=== PATIENT | female | born 1940 | race Caucasian/White ===

== ENCOUNTER → 2016-10-18 | Outpatient (CLI) | payer BC ==
[~2016-10-18] MED LIST: ACET-1256 PO; ASPI81TA28 PO; AZAT50TA17 PO; CARBTAB2 PO; CLBCR60 TOP; CYNI1000 IM; DOXY50CA26 PO; LDDP5 TD; LISI-787 PO; LVQ500 PO; MCTP EXT; METF850T PO; MRLP17X PO; MULT-513 PO; MULT1CHW37 PO; NVLGIPEN SC; PANT40TA PO; PRD20 PO; PRD75 PO; SULF800T23 PO; TRMCR180 EXT; ULT50X PO
[2016-10-18 17:32] LABS: URINE APPEARANCE CLEAR (CLEAR); URINE BILIRUBIN NEG (NEG); URINE COLOR DK YELLOW; URINE NITRITE POS (NEG); URINE PH 5.5 (4.5-7.5); URINE SPECIFIC GRAVITY 1.013 (1.000-1.030); UROBILINOGEN NEG (NEG)
[2016-10-18 17:40] LABS: MANUAL MICROSCOPIC REQUIRED? NO; REVIEW REQ? NO
== END | disposition home or self-care (01) ==
LOC: C.LABSPEC 13:15
PROVIDERS: ATTEND Family Medicine
DX: R35.0 Frequency of micturition (principal)

== ENCOUNTER 2016-10-24 09:09 | Inpatient (IN) | payer BC, OTHER ==
[~2016-10-24] VITALS: Ht 172.7 cm; Wt 110.8 kg
[~2016-10-24 09:09] MED LIST changes: -LVQ500 PO; -MRLP17X PO; -MULT-513 PO; -MULT1CHW37 PO; -NVLGIPEN SC; -PANT40TA PO; -PRD75 PO; -SULF800T23 PO
[2016-10-24] MEDS ORDERED: HYDROCODONE/ACETAMOPHEN 5/325MG TAB PO STA (09:29)
[2016-10-24 10:01] LABS: MANUAL MICROSCOPIC REQUIRED? YES; REVIEW REQ? NO; SULFASALICYLIC ACID NEG (NEG); URINE APPEARANCE SLIGHTLY CLOUDY (CLEAR); URINE COLOR ORANGE; URINE SPECIFIC GRAVITY 1.021 (1.000-1.030)
[2016-10-24 10:06] LABS: URINE MUCUS PRESENT (NONE PRSENT)
[2016-10-24 10:10] LABS: URINE RBC 0-4 /hpf (0-4)
[2016-10-24] MEDS ORDERED: OXYCODONE HCL IR 5 MG TAB (IMMEDIATE RELEASE) PO STA (10:11)
[2016-10-24 10:17] LABS: URINE BACTERIA NEG (NEG)
[2016-10-24 10:18] LABS: ZZUR CULT IF INDIC CLEAN CATCH NO
--- NOTE | 2016-10-24 10:28 | EMERGENCY ROOM VISIT NOTE ---
ED Visit Note First contact with patient: 09:11 I have seen and examined this patient with Ava Wilcox and generally agree with the treatment plan as discussed.
[2016-10-24] MEDS ORDERED: SULF800T23 PO (10:30)
[2016-10-24 11:13] LABS: COMPLETE YES; EOS % 7.7 %; IG% 0.2 %; LYMPH % 6.1 %; LYMPH ABS # 0.35 K/uL (1.2-3.4); MEAN CELL VOLUME 92.3 fL (80-100); MEAN CORPUSCULAR HEMOGLOBIN 31.9 pg (25-34); MEAN CORPUSCULAR HGB CONC 34.6 g/dl (32-36); MEAN PLATELET VOLUME 9.6 fL (7.4-10.4); MONO % 9.8 %; NEUT % 76.2 %; PLATELET COUNT 236 K/uL (130-400); RED BLOOD COUNT 4.01 M/uL (4.2-5.4)
[2016-10-24 11:26] LABS: PARTIAL THROMBOPLASTIN RATIO 1.1; PROTHROMBIN TIME (PATIENT) 11.1 SECONDS (9.0-12.0)
--- NOTE | 2016-10-24 11:28 | DIAGNOSTIC IMAGING REPORT ---
C-SPINE ROUTINE 4 OR 5 VIEWS CLINICAL HISTORY: Neck pain status post trauma COMPARISON STUDY: No previous studies for comparison. FINDINGS: The study is limited from a technical standpoint. On the nonswimmer's view, only the first 4 cervical vertebral bodies are visualized. On the swimmer's view, the first 7 cervical vertebral bodies are at least partially visualized. There are multilevel degenerative changes. No fractures or subluxations are visualized. IMPRESSION: Technically limited study. No fractures or traumatic subluxations are visualized on conventional radiographic imaging Electronically signed by: Dwight Magana M.D. 10/24/2016 11:26 AM Dictated Date/Time: 10/24/2016 11:25 AM
--- NOTE | 2016-10-24 11:30 | DIAGNOSTIC IMAGING REPORT ---
THORACIC SPINE 3 VIEWS ROUTINE CLINICAL HISTORY: upper back pain/fall COMPARISON STUDY: No previous studies for comparison. FINDINGS: There is ankylosis of the spine. No acute fractures are visualized on conventional radiographic imaging. In patients with ankylosis, fractures can be mammographically occult. IMPRESSION: 1. Ankylosis of the dorsal spine 2. No acute fractures or traumatic subluxations are visualized on conventional radiographic imaging 3. If patient has persistent pain, additional imaging may be necessary Electronically signed by: Dwight Magana M.D. 10/24/2016 11:28 AM Dictated Date/Time: 10/24/2016 11:26 AM
[2016-10-24 11:31] LABS: BUN/CREATININE RATIO 22.3 (10-20); CALCIUM 9.1 mg/dl (8.5-10.1); CREATININE 1.2 mg/dl (0.60-1.20); POTASSIUM 4.3 mmol/L (3.5-5.1)
--- NOTE | 2016-10-24 11:37 | DIAGNOSTIC IMAGING REPORT ---
RIGHT SHOULDER 3 VIEWS CLINICAL HISTORY: Fall with right shoulder pain. FINDINGS: 3 views of the right shoulder are obtained. No prior studies are available for comparison at the time of dictation. The skeletal structures are osteopenic. There is no radiographic evidence of fracture or dislocation. Productive degenerative change is seen at the acromioclavicular joint. The glenohumeral articulation appears preserved. Calcific tendinopathy is noted. The overlying soft tissues are within normal limits. Imaged right lung parenchyma appears clear. IMPRESSION: 1. No fracture or dislocation is identified in the right shoulder. 2. Osteopenia with arthritic change and calcific tendinopathy as above. Electronically signed by: Rodo Ramos M.D. 10/24/2016 11:35 AM Dictated Date/Time: 10/24/2016 11:33 AM
--- NOTE | 2016-10-24 11:38 | DIAGNOSTIC IMAGING REPORT ---
LEFT SHOULDER 3 VIEWS CLINICAL HISTORY: Fall with left shoulder pain. FINDINGS: 3 views of the left shoulder are obtained. No prior studies are available for comparison at the time of dictation. The skeletal structures are osteopenic. There is no radiographic evidence of fracture or dislocation. Productive degenerative change is seen at the acromioclavicular joint. The glenohumeral articulation appears preserved. Degenerative spurring is noted from the inferior glenoid. Calcific tendinopathy is noted. The overlying soft tissues are within normal limits. Imaged left upper lobe lung parenchyma appears clear. IMPRESSION: 1. No fracture or dislocation is identified in the left shoulder. 2. Osteopenia with arthritic change and calcific tendinopathy as above. Electronically signed by: Rodo Ramos M.D. 10/24/2016 11:36 AM Dictated Date/Time: 10/24/2016 11:35 AM
--- NOTE | 2016-10-24 11:49 | DIAGNOSTIC IMAGING REPORT ---
LUMBAR SPINE 5 VIEWS HISTORY: fall/low back pain COMPARISON: None. FINDINGS: There is no fracture. No subluxation. Mild disc space narrowing at L2-L3. Moderate facet degenerative changes seen within the lower lumbar spine. IMPRESSION: No fracture or subluxation within the lumbar spine. Electronically signed by: Alexander Ivy M.D. 10/24/2016 11:47 AM Dictated Date/Time: 10/24/2016 11:45 AM
--- NOTE | 2016-10-24 11:50 | DIAGNOSTIC IMAGING REPORT ---
CHEST 1 VW FRONT-NOT PORTABLE HISTORY: fall COMPARISON: Chest 09/04/2016. FINDINGS: The heart is mildly enlarged. This remains unchanged. Mild chronic interstitial thickening persists. No new focal lung consolidations. No pleural fusions. No pneumothorax. There are few linear density at the left lung base. IMPRESSION: A few linear densities at the left lung base. This may represent atelectasis or scarring. Electronically signed by: Alexander Ivy M.D. 10/24/2016 11:48 AM Dictated Date/Time: 10/24/2016 11:47 AM
--- NOTE | 2016-10-24 11:55 | DIAGNOSTIC IMAGING REPORT ---
RIGHT ELBOW 3 VIEWS HISTORY: fall/ elbow pain Right COMPARISON: None. FINDINGS: There is no definite fracture or dislocation. Soft tissues are unremarkable. No definite elbow effusion. 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 Questionable horizontal lucency at the radial head. This appears corticated and is unlikely to represent an acute fracture. IMPRESSION: No definite acute fracture or dislocation within the right elbow. Questionable lucency at the radial head appears well corticated and is unlikely represent an acute fracture. However, follow-up radiograph in 2 weeks can performed if the patient's symptoms persist. Electronically signed by: Alexander Ivy M.D. 10/24/2016 11:53 AM Dictated Date/Time: 10/24/2016 11:48 AM
[2016-10-24] MEDS ORDERED: ACETAMINOPHEN 500 MG TAB PO STA (12:00)
--- NOTE | 2016-10-24 12:33 | EMERGENCY ROOM VISIT NOTE ---
History First contact with patient: :11 Chief Complaint: FALL Stated Complaint: FALL History of Present Illness The patient is a 76 year old female who presents to the Emergency Room EMS with complaints of falling this morning. The patient was in her recliner and fell forward out of her recliner. She is unsure exactly what happened. She denies any loss of consciousness. The fall was unwitnessed but her daughter was in the house but was unable to get the patient off the floor and therefore they called the ambulance. The patient also states that she fell on but did not have any injuries. The daughter states that the last time the patient had recurrent falls she was septic. The patient is currently being treated for a UTI. Today is her last pill. She was on Bactrim for 5 days. The patient is still complaining of dysuria and frequency. The patient denies hitting her head when she fell. The patient denies any dizziness prior to the fall. The patient normally ambulates with a walker. She is currently complaining of bilateral shoulder pain and entire spine pain. She had complained to the EMS initially about right elbow pain. The patient denies any chest pain, shortness of breath or any abdominal pain. Review of Systems 10 system review was performed and was negative unless stated otherwise history of present illness. Past Medical/Surgical History Medical Problems: (1) Ambulatory dysfunction (2) Elevated troponin (3) Gait disorder (4) Rhabdomyolysis Parkinson's disease Family History No pertinent family history Social History Smoking Status: Current Every Day Smoker Drug Use: none Marital Status: Housing Status: lives with family Occupation Status: unemployed Current/Historical Medications Scheduled Aspirin (Aspirin Ec), 81 MG PO DAILY Azathioprine (Imuran), 50 MG PO DAILY Carbidopa/Levodopa/Entacapone 25/100/200MG (Stalevo 100), 2 TAB PO QID Cyanocobalamin (Cyanocobalamin), 1,000 MCG IM DIRECTED Lisinopril/Hctz (Zestoretic 20MG/12.5MG), 1 TAB PO DAILY Metformin Hcl (Glucophage), 850 MG PO TIDM Sulfa/Trimethoprim (Bactrim Ds 800MG/160MG), 1 TAB PO BID Scheduled PRN Acetaminophen (Tylenol), 1,000 MG PO DIRECTED PRN for Pain Tramadol HCl (Tramadol HCl), 50 MG PO Q6H PRN for Pain Allergies Coded Allergies: No Known Allergies (Unverified , 10/24/16) Physical Exam Vital Signs Date Time Temp Pulse Resp B/P Pulse Ox O2 Delivery O2 Flow Rate FiO2 10/24/16 12:25 37.8 99 20 97 Room Air 10/24/16 12:06 37.8 10/24/16 11:22 98 20 100/62 94 Room Air 10/24/16 09:38 97 Room Air 10/24/16 09:38 38.1 107 20 122/85 97 Room Air 10/24/16 09:33 104 Physical Exam GENERAL: 76-year-old white female appears in no acute distress. She has a generalized tremor. MENTAL STATUS: Patient is alert and oriented x3. She is answering questions appropriately. HEAD: Atraumatic, nontender to palpation throughout. No bony abnormality noted. EYES: PERRLA. EOMs intact. EARS: Canals clear. TMs without hemotympanum noted. NECK: Supple, no lymphadenopathy noted. No carotid bruits noted. LUNGS: Clear auscultation without wheezes rales or rhonchi. CARDIAC: Regular rate and rhythm without murmur. Pulses is full and equal throughout. ABDOMEN: Positive bowel sounds all 4 quadrants. Soft, nontender to palpation without organomegaly or masses. NEURO: Grossly intact. SPINE: Entire spine is tender to palpation over the spinous processes in the paravertebral regions bilaterally. SHOULDERS: Bilateral shoulders without any gross bony deformity noted. She is tender to palpation throughout. RIGHT ELBOW: No gross bony deformity noted. Full range of motion. Tenderness palpation throughout. SKIN: The patient does not have any open lacerations although she does have multiple sores on her mid back with some mild surrounding erythema. BILATERAL LOWER EXTREMITY is: Patient is able to move bilateral hips, knees and ankles without difficulty. Medical Decision & Procedures ER Provider Diagnostic Interpretation: C-SPINE ROUTINE 4 OR 5 VIEWS CLINICAL HISTORY: Neck pain status post trauma COMPARISON STUDY: No previous studies for comparison. FINDINGS: The study is limited from a technical standpoint. On the nonswimmer's view, only the first 4 cervical vertebral bodies are visualized. On the swimmer's view, the first 7 cervical vertebral bodies are at least partially visualized. There are multilevel degenerative changes. No fractures or subluxations are visualized. IMPRESSION: Technically limited study. No fractures or traumatic subluxations are visualized on conventional radiographic imaging Electronically signed by: Dwight Magana M.D. 10/24/2016 11:26 AM CHEST 1 VW FRONT-NOT PORTABLE HISTORY: fall COMPARISON: Chest 09/04/2016. FINDINGS: The heart is mildly enlarged. This remains unchanged. Mild chronic interstitial thickening persists. No new focal lung consolidations. No pleural fusions. No pneumothorax. There are few linear density at the left lung base. IMPRESSION: A few linear densities at the left lung base. This may represent atelectasis or scarring. Electronically signed by: Alexander Ivy M.D. 10/24/2016 11:48 AM LUMBAR SPINE 5 VIEWS HISTORY: fall/low back pain COMPARISON: None. FINDINGS: There is no fracture. No subluxation. Mild disc space narrowing at L2-L3. Moderate facet degenerative changes seen within the lower lumbar spine. IMPRESSION: No fracture or subluxation within the lumbar spine. Electronically signed by: Alexander Ivy M.D. 10/24/2016 11:47 AM Dictated Date/Time: 10/24/2016 11:45 AM LEFT SHOULDER 3 VIEWS CLINICAL HISTORY: Fall with left shoulder pain. FINDINGS: 3 views of the left shoulder are obtained. No prior studies are available for comparison at the time of dictation. The skeletal structures are osteopenic. There is no radiographic evidence of fracture or dislocation. Productive degenerative change is seen at the acromioclavicular joint. The glenohumeral articulation appears preserved. Degenerative spurring is noted from the inferior glenoid. Calcific tendinopathy is noted. The overlying soft tissues are within normal limits. Imaged left upper lobe lung parenchyma appears clear. IMPRESSION: 1. No fracture or dislocation is identified in the left shoulder. 2. Osteopenia with arthritic change and calcific tendinopathy as above. Electronically signed by: Rodo Ramos M.D. 10/24/2016 11:36 AM RIGHT SHOULDER 3 VIEWS CLINICAL HISTORY: Fall with right shoulder pain. FINDINGS: 3 views of the right shoulder are obtained. No prior studies are available for comparison at the time of dictation. The skeletal structures are osteopenic. There is no radiographic evidence of fracture or dislocation. Productive degenerative change is seen at the acromioclavicular joint. The glenohumeral articulation appears preserved. Calcific tendinopathy is noted. The overlying soft tissues are within normal limits. Imaged right lung parenchyma appears clear. IMPRESSION: 1. No fracture or dislocation is identified in the right shoulder. 2. Osteopenia with arthritic change and calcific tendinopathy as above. Electronically signed by: Rodo Ramos M.D. 10/24/2016 11:35 AM THORACIC SPINE 3 VIEWS ROUTINE CLINICAL HISTORY: upper back pain/fall COMPARISON STUDY: No previous studies for comparison. FINDINGS: There is ankylosis of the spine. No acute fractures are visualized on conventional radiographic imaging. In patients with ankylosis, fractures can be mammographically occult. IMPRESSION: 1. Ankylosis of the dorsal spine 2. No acute fractures or traumatic subluxations are visualized on conventional radiographic imaging 3. If patient has persistent pain, additional imaging may be necessary Electronically signed by: Dwight Magana M.D. 10/24/2016 11:28 AM' RIGHT ELBOW 3 VIEWS HISTORY: fall/ elbow pain Right COMPARISON: None. FINDINGS: There is no definite fracture or dislocation. Soft tissues are unremarkable. No definite elbow effusion. 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 Questionable horizontal lucency at the radial head. This appears corticated and is unlikely to represent an acute fracture. IMPRESSION: No definite acute fracture or dislocation within the right elbow. Questionable lucency at the radial head appears well corticated and is unlikely represent an acute fracture. However, follow-up radiograph in 2 weeks can performed if the patient's symptoms persist. Electronically signed by: Alexander Ivy M.D. 10/24/2016 11:53 AM Laboratory Results 10/24/16 10:29 Red Blood Count 4.01, Mean Corpuscular Volume 92.3, Mean Corpuscular Hemoglobin 31.9, Mean Corpuscular Hemoglobin Concent 34.6, Mean Platelet Volume 9.6, Neutrophils (%) (Auto) 76.2, Lymphocytes (%) (Auto) 6.1, Monocytes (%) (Auto) 9.8, Eosinophils (%) (Auto) 7.7, Basophils (%) (Auto) 0.0, Neutrophils # (Auto) 4.34, Lymphocytes # (Auto) 0.35, Monocytes # (Auto) 0.56, Eosinophils # (Auto) 0.44, Basophils # (Auto) 0.00 10/24/16 10:29 Test 10/24/16 09:30 10/24/16 10:29 Urine Color ORANGE Urine Appearance SLIGHTLY CLOUDY (CLEAR) Urine pH (4.5-7.5) Urine Specific [place] 1.021 (1.000-1.030) Urine Protein NEG (NEG) Urine Glucose (UA) (NEG) Urine Ketones (NEG) Urine Occult Blood (NEG) Urine Nitrite (NEG) Urine Bilirubin (NEG) Urine Urobilinogen (NEG) Urine Leukocyte Esterase (NEG) Urine RBC 0-4 /hpf (0-4) Urine WBC 1-5 /hpf (0-5) Urine Epithelial Cells 0-5 /lpf (0-5) Urine Uric Acid Crystals PRESENT (NONE PRSENT) Urine Bacteria NEG (NEG) Urine Mucus PRESENT (NONE PRSENT) White Blood Count 5.70 K/uL (4.8-10.8) Red Blood Count 4.01 M/uL (4.2-5.4) Hemoglobin 12.8 g/dL (12.0-16.0) Hematocrit 37.0 % (37-47) Mean Corpuscular Volume 92.3 fL (80-100) Mean Corpuscular Hemoglobin 31.9 pg (25-34) Mean Corpuscular Hemoglobin Concent 34.6 g/dl (32-36) Platelet Count 236 K/uL (130-400) Mean Platelet Volume 9.6 fL (7.4-10.4) Neutrophils (%) (Auto) 76.2 % Lymphocytes (%) (Auto) 6.1 % Monocytes (%) (Auto) 9.8 % Eosinophils (%) (Auto) 7.7 % Basophils (%) (Auto) 0.0 % Neutrophils # (Auto) 4.34 K/uL (1.4-6.5) Lymphocytes # (Auto) 0.35 K/uL (1.2-3.4) Monocytes # (Auto) 0.56 K/uL (0.11-0.59) Eosinophils # (Auto) 0.44 K/uL (0-0.5) Basophils # (Auto) 0.00 K/uL (0-0.2) RDW Standard Deviation 55.5 fL (36.4-46.3) RDW Coefficient of Variation 16.5 % (11.5-14.5) Immature Granulocyte % (Auto) 0.2 % Immature Granulocyte # (Auto) 0.01 K/uL (0.00-0.02) Prothrombin Time 11.1 SECONDS (9.0-12.0) Prothromb Time International Ratio 1.0 (0.9-1.1) Activated Partial Thromboplast Time 28.0 SECONDS (21.0-31.0) Partial Thromboplastin Ratio 1.1 Anion Gap 8.0 mmol/L (3-11) Est Creatinine Clear Calc Drug Dose 50.0 ml/min Estimated GFR () 50.5 Estimated GFR (Non- 43.6 BUN/Creatinine Ratio 22.3 (10-20) Calcium Level 9.1 mg/dl (8.5-10.1) Medications Administered Medications (Trade) Dose Ordered Sig/Julián Route Start Time Stop Time Status Last Admin Dose Admin Oxycodone HCl (Roxicodone Immediate Rel Tab) 5 mg NOW STAT PO 10/24/16 10:11 10/24/16 10:12 DC 10/24/16 10:15 5 MG Acetaminophen (Tylenol Tab) 1,000 mg NOW STAT PO 10/24/16 12:00 10/24/16 12:01 DC 10/24/16 12:00 1,000 MG ECG Indication: other (frequent falls) Rhythm: normal sinus Findings: no acute ischemic change ED Course The patient was evaluated. IV access was obtained. EKG was ordered and interpreted by the radiologist as above without any acute findings. The patient was placed on a monitor and continuous pulse ox. CBC and differential, renal profile, LFTs and lipase levels were ordered. Urinalysis was ordered. Blood cultures were ordered 2. X-rays of bilateral shoulders, entire spine and right elbow were ordered. The patient was given OxyIR 5 mg by mouth for pain. The nurses had difficulty obtaining IV access therefore she was not giving anything initially for her fever until blood cultures were obtained. After the blood cultures were obtained she was given Tylenol 1 g by mouth for fever. Prior to her obtaining the Tylenol her temperature was going down. It was down to 37.6 prior to taking the Tylenol. On reevaluation the patient was feeling better. Labs were reviewed and were unremarkable. The patient's white count was normal. Urinalysis was limited since it was orange due to the patient taken Pyridium. No bacteria was noted. Culture is pending. The patient was independently evaluated by Dr. Gaytan who agreed with treatment plan. The patient was discharged home in stable condition. The patient also has tramadol at home which she can take for pain. She stated she did not need any additional prescriptions. Medical Decision Differential diagnosis include contusions versus fractures of multiple sites. Laboratory testing was performed to evaluate for possible sepsis since she did have frequent falls in the past due to sepsis. She also currently has a known UTI which is under treatment. Impression Primary Impression: Fall Additional Impressions: Contusion of multiple sites Fever Departure Information Dispostion Home / Self-Care Condition GOOD Referrals Kojo Cohen MD (PCP) Forms HOME CARE DOCUMENTATION FORM, IMPORTANT VISIT INFORMATION Patient Instructions A Signature Page, [employer] Additional Instructions Take your tramadol that you have at home as needed for pain. May try to ice areas of pain such as her shoulders intermittently for the first 24 hours. Make sure you use her walker for ambulation. Do not try and get up quickly. We will call you in 36 hours with your urine culture results. If you have any worsening of symptoms, follow-up with your family doctor or return to ER. Problem Qualifiers Primary Impression: Fall Encounter type: sequela Qualified Codes: W19.XXXS - Unspecified fall, sequela
[2016-10-24] MEDS ORDERED: ALUMINUM/MAGNESIUM/SIMETH (MAALOX MAX) 30 ML UDC PO PRN (15:15)
[2016-10-24] MEDS ORDERED: ONDANSETRON INJ 2 MG/ML 2 ML VIAL IV PRN (15:15)
[2016-10-24] MEDS ORDERED: ACETAMINOPHEN 325 MG TAB PO PRN (15:15)
[2016-10-24] MEDS ORDERED: GLUCAGON FOR INJ 1 MG VIAL SQ PRN (15:30)
[2016-10-24] MEDS ORDERED: PIPERACILL/TAZOBAC CONSULT ACTIVE PRN (15:30)
[2016-10-24] MEDS ORDERED: GLUCOSE 10 TABS/TUBE PO PRN (15:30)
[2016-10-24] MEDS ORDERED: GLUCOSE 40% GEL 15 GM TUBE PO PRN (15:30)
[2016-10-24] MEDS ORDERED: TRAMADOL HCL 50 MG TAB PO PRN (15:30)
[2016-10-24] MEDS ORDERED: DEXTROSE 50% 50 ML SYR IV PRN (15:30)
--- NOTE | 2016-10-24 15:36 | History and Physical ---
History & Physical Date & Time of Service: Oct 24, 2016 at 15:22 Chief Complaint: FALL Primary Care Physician: Kojo Cohen MD History of Present Illness Source: patient Pt is a 76 yo female with hx of NIDDM, HTN, Parkinsons who presents to the ER via EMS with complaints of falling this morning. Pt is a poor historian due to Parkinson's so much of the history is obtained by ER documentation and notes as daughter is unavailable at this time. Pt has been reported to have several falls in past few days with no preceeding symptoms including chest pain, shortness of breath, palpitations, headaches. Pt lives at home with daughter and ambulates with walker. Pt states feeling "OK " upon evaluation.No injuries reported after fall and no LOC noted. Pt has been recently treated for UTI with bactrim. Pt currently denies any urinary sx. Family History No pertinent family history Social History Smoking Status: Current Every Day Smoker Drug Use: none Marital Status: Occupational Status: unemployed Immunizations Influenza Vaccine Date: Nov 24, 2010 History of Tetanus Vaccine?: No History of Pneumococcal: Yes Pneumococcal Date: Nov 24, 2010 History of Hepatitis B Vaccine: No Multi-Drug Resistant Organisms History of MDRO: No Allergies Coded Allergies: No Known Allergies (Unverified , 10/24/16) Home Medications Scheduled Aspirin (Aspirin Ec), 81 MG PO DAILY Azathioprine (Imuran), 50 MG PO DAILY Carbidopa/Levodopa/Entacapone 25/100/200MG (Stalevo 100), 2 TAB PO QID Cyanocobalamin (Cyanocobalamin), 1,000 MCG IM DIRECTED Lisinopril/Hctz (Zestoretic 20MG/12.5MG), 1 TAB PO DAILY Metformin Hcl (Glucophage), 850 MG PO TIDM Sulfa/Trimethoprim (Bactrim Ds 800MG/160MG), 1 TAB PO BID Scheduled PRN Acetaminophen (Tylenol), 1,000 MG PO DIRECTED PRN for Pain Tramadol HCl (Tramadol HCl), 50 MG PO Q6H PRN for Pain Review of Systems Constitutional: No chills, No fever Respiratory: No cough, No dyspnea on exertion, No shortness of breath, No sputum Cardiovascular: No chest pain, No orthopnea Abdomen: No diarrhea, No nausea, No pain, No vomiting Musculoskeletal: + joint pain, + muscle pain Genitourinary - Female: No dysuria, No urinary frequency, No urinary urgency Neurologic: No paralysis, No weakness Psychiatric: No anhedonism, No depression symptoms Physical Exam Vital Signs Date Time Temp Pulse Resp B/P Pulse Ox O2 Delivery O2 Flow Rate FiO2 10/24/16 15:12 94 90/51 10/24/16 15:08 81/38 10/24/16 14:29 86/47 10/24/16 14:24 37.5 92 18 59/40 95 Room Air 10/24/16 12:25 37.8 99 20 97 Room Air 10/24/16 12:06 37.8 10/24/16 11:22 98 20 100/62 94 Room Air 10/24/16 09:38 97 Room Air 10/24/16 09:38 38.1 107 20 122/85 97 Room Air 10/24/16 09:33 104 General Appearance: WD/WN, no apparent distress Neck: supple, no adenopathy Respiratory/Chest: lungs clear, normal breath sounds Cardiovascular: no edema, no gallop Abdomen/GI: non tender, soft Neurologic/Psych: alert, normal mood/affect, oriented x 3 Diagnostics Laboratory Results Results Past 24 Hours Test 10/24/16 09:30 10/24/16 10:29 10/24/16 15:21 Range/Units Urine Color ORANGE Urine Appearance SLIGHTLY CLOUDY CLEAR Urine pH 4.5-7.5 Urine Specific [place] 1.021 1.000-1.030 Urine Protein NEG NEG Urine Glucose (UA) NEG Urine Ketones NEG Urine Occult Blood NEG Urine Nitrite NEG Urine Bilirubin NEG Urine Urobilinogen NEG Urine Leukocyte Esterase NEG Urine RBC 0-4 0-4 /hpf Urine WBC 1-5 0-5 /hpf Urine Epithelial Cells 0-5 0-5 /lpf Urine Uric Acid Crystals PRESENT NONE PRSENT Urine Bacteria NEG NEG Urine Mucus PRESENT NONE PRSENT White Blood Count 5.70 4.8-10.8 K/uL Red Blood Count 4.01 4.2-5.4 M/uL Hemoglobin 12.8 12.0-16.0 g/dL Hematocrit 37.0 37-47 % Mean Corpuscular Volume 92.3 80-100 fL Mean Corpuscular Hemoglobin 31.9 25-34 pg Mean Corpuscular Hemoglobin Concent 34.6 32-36 g/dl Platelet Count 236 130-400 K/uL Mean Platelet Volume 9.6 7.4-10.4 fL Neutrophils (%) (Auto) 76.2 % Lymphocytes (%) (Auto) 6.1 % Monocytes (%) (Auto) 9.8 % Eosinophils (%) (Auto) 7.7 % Basophils (%) (Auto) 0.0 % Neutrophils # (Auto) 4.34 1.4-6.5 K/uL Lymphocytes # (Auto) 0.35 1.2-3.4 K/uL Monocytes # (Auto) 0.56 0.11-0.59 K/uL Eosinophils # (Auto) 0.44 0-0.5 K/uL Basophils # (Auto) 0.00 0-0.2 K/uL RDW Standard Deviation 55.5 36.4-46.3 fL RDW Coefficient of Variation 16.5 11.5-14.5 % Immature Granulocyte % (Auto) 0.2 % Immature Granulocyte # (Auto) 0.01 0.00-0.02 K/uL Prothrombin Time 11.1 9.0-12.0 SECONDS Prothromb Time International Ratio 1.0 0.9-1.1 Activated Partial Thromboplast Time 28.0 21.0-31.0 SECONDS Partial Thromboplastin Ratio 1.1 Sodium Level 134 136-145 mmol/L Potassium Level 4.3 3.5-5.1 mmol/L Chloride Level 101 98-107 mmol/L Carbon Dioxide Level 25 21-32 mmol/L Anion Gap 8.0 3-11 mmol/L Blood Urea Nitrogen 27 7-18 mg/dl Creatinine 1.20 0.60-1.20 mg/dl Est Creatinine Clear Calc Drug Dose 50.0 ml/min Estimated GFR () 50.5 Estimated GFR (Non- 43.6 BUN/Creatinine Ratio 22.3 10-20 Random Glucose 153 70-99 mg/dl Calcium Level 9.1 8.5-10.1 mg/dl Microbiology Results 10/24/16 Blood Culture, Received Pending 10/24/16 Blood Culture, Received Pending Impression Assessment and Plan Pt is a 76 yo female who presents to ER via EMS for multiple falls and found to be in sepsis upon arrival to ER Multiple falls likely secondary to sepsis vs gait dysfunction vs autonomic dysfunction from Parkinson's disease. No leukocytosis but febrile and hypotensive in ER. Pt received 1 liter NS bolus in ER and we will cont IVF NS at 150 cc/hr. Will empirically treat at this time with zosyn. Pt was just finishing course of bactrim for recent UTI. Will repeat UA and obtain urine cx and blood cultures. Pt will be admitted to [facility] for further evaluation. HTN - Currently hypotensive. Will hold zestoretic at this time. NIDDM - Will hold metformin due to dehydration likely from sepsis. Start on ISS , obtain HgA1C. Parkinson's Disorder - Cont Stalevo, seems to be at baseline, alert and oriented x 3 Gait dysfunction - Will obtain PT/OT consult, daughter expresses concern about her coming back home. Bullous pemphigus - Cont imuran DVT ppx with heparin VTE Prophylaxis VTE Risk Assessment Done? Y/N: Yes Risk Level: Moderate
[2016-10-24] MEDS: SODIUM CHLORIDE 0.9% 1000ML 1,000 ML IV SCH ×2 (16:09→21:55)
[2016-10-24] MEDS ORDERED: PIPERACILL/TAZOBAC IV 3.375 GM in DEXTROSE 5% 100ML 100 ML IV ONE (16:45)
[2016-10-24 16:59] VITALS: BP 85/51; PULSE 92; TEMP 36.9; O2SAT 92; Ht 172.7 cm; Wt 110.8 kg
[2016-10-24] MEDS: INSULIN ASPART 100 UNITS/ML 3 ML PEN SC SCH ×2 (18:00→21:04)
[2016-10-24] MEDS: CARBIDOPA/LEVODOPA 25/100MG TAB PO SCH (19:29)
[2016-10-24] MEDS: ENTACAPONE 200 MG TAB PO SCH (19:29)
[2016-10-24 20:10] VITALS: BP 129/65; PULSE 105; TEMP 38
[2016-10-24] MEDS: PIPERACILL/TAZOBAC IV 3.375 GM in DEXTROSE 5% 100ML 100 ML IV SCH (21:53)
[2016-10-24] MEDS: HEPARIN SOD 5000 UNIT/0.5 ML CARP SQ SCH (21:54)
[2016-10-25] VITALS (11 sets, daily range): BP systolic 90–107; BP diastolic 52–66; PULSE 78–91; TEMP 36.5–37.8; O2SAT 91–97
[2016-10-25] MEDS: SODIUM CHLORIDE 0.9% 1000ML 1,000 ML IV SCH ×3 (05:16→18:06)
[2016-10-25] MEDS: ENTACAPONE 200 MG TAB PO SCH ×4 (06:11→18:42)
[2016-10-25] MEDS: CARBIDOPA/LEVODOPA 25/100MG TAB PO SCH ×4 (06:11→18:41)
[2016-10-25] MEDS: HEPARIN SOD 5000 UNIT/0.5 ML CARP SQ SCH ×3 (06:12→22:10)
[2016-10-25] MEDS: PIPERACILL/TAZOBAC IV 3.375 GM in DEXTROSE 5% 100ML 100 ML IV SCH ×3 (06:18→22:09)
[2016-10-25 07:20] LABS: URINE APPEARANCE CLEAR (CLEAR); URINE BILIRUBIN NEG (NEG); URINE COLOR DK YELLOW; URINE EPITHELIAL CELL AUTO >30 /lpf (0-5); URINE NITRITE NEG (NEG); URINE SPECIFIC GRAVITY 1.021 (1.000-1.030); UROBILINOGEN NEG (NEG)
[2016-10-25 07:29] LABS: MANUAL MICROSCOPIC REQUIRED? NO; REVIEW REQ? YES
[2016-10-25 08:12] LABS: BUN/CREATININE RATIO 23.3 (10-20); CALCIUM 8.2 mg/dl (8.5-10.1); CREATININE 0.96 mg/dl (0.60-1.20)
[2016-10-25] MEDS: INSULIN ASPART 100 UNITS/ML 3 ML PEN SC SCH ×4 (08:17→20:45)
[2016-10-25] MEDS: ASPIRIN 81 MG ECTAB PO SCH (08:54)
[2016-10-25] MEDS: AZATHIOPRINE 50 MG TAB PO SCH (08:54)
[2016-10-25 09:02] LABS: ESTIMATED AVERAGE GLUCOSE 154 mg/dl; HA1C FLAG Normal (Normal)
--- NOTE | 2016-10-25 15:36 | Progress Note ---
Subjective Date of Service: Oct 25, 2016. Subjective pt is awake and arousable, is slightly confused at times, no focal complaints but weak and in need of support. daughter is concerned that she may not be able to care for her mother at home even with supportive devices Problem List Medical Problems: (1) Contusion of multiple sites Status: Acute (2) Dehydration Status: Acute (3) Fall Status: Acute (4) Fall Status: Acute (5) Fever Status: Acute (6) Hyponatremia Status: Acute (7) Parkinsons disease Status: Acute (8) UTI (urinary tract infection) Status: Acute (9) Weakness Status: Acute Review of Systems Constitutional: + fatigue, + weakness, No chills, No fever ENT: No hearing loss, No nasal symptoms Respiratory: No cough, No shortness of breath Cardiac: + edema, No chest pain Abdomen: No diarrhea, No nausea, No pain, No vomiting Female : No dysuria, No urinary frequency Psychiatric: No anhedonism, No anxiety, No depression symptoms Objective Vital Signs Date Time Temp Pulse Resp B/P Pulse Ox O2 Delivery O2 Flow Rate FiO2 10/25/16 07:23 36.5 91 16 99/59 97 Room Air 10/25/16 04:46 37.6 90 20 107/66 93 Room Air 10/25/16 04:00 Room Air 10/25/16 00:18 37.8 90 20 100/58 91 Room Air 10/25/16 00:00 Room Air 10/24/16 20:10 38.0 105 20 129/65 Room Air 94.0 10/24/16 16:59 36.9 92 18 85/51 92 Room Air 10/24/16 15:33 95 18 85/44 96 10/24/16 15:32 95 18 85/44 96 Room Air 10/24/16 15:26 93 83/50 10/24/16 15:12 94 90/51 10/24/16 15:08 81/38 10/24/16 14:29 86/47 10/24/16 14:24 37.5 92 18 59/40 95 Room Air 10/24/16 12:25 37.8 99 20 97 Room Air 10/24/16 12:06 37.8 10/24/16 11:22 98 20 100/62 94 Room Air 10/24/16 09:38 97 Room Air 10/24/16 09:38 38.1 107 20 122/85 97 Room Air 10/24/16 09:33 104 Physical Exam General Appearance: WD/WN, + mild distress Eyes: PERRL, EOMI Neck: supple, no JVD Respiratory/Chest: chest non-tender, lungs clear Cardiovascular: regular rate, rhythm, no murmur Abdomen: normal bowel sounds, non tender, soft Extremities: no pedal edema, no calf tenderness Neurologic/Psychiatric: alert, + depressed affect, + pertinent finding (some parkinson effects seen) Laboratory Results Last 24 Hours Test 10/24/16 09:30 10/24/16 10:29 10/24/16 15:38 10/24/16 16:44 Urine Color ORANGE Urine Appearance SLIGHTLY CLOUDY Urine pH Urine Specific [place] 1.021 Urine Protein NEG Urine Glucose (UA) Urine Ketones Urine Occult Blood Urine Nitrite Urine Bilirubin Urine Urobilinogen Urine Leukocyte Esterase Urine RBC 0-4 /hpf Urine WBC 1-5 /hpf Urine Epithelial Cells 0-5 /lpf Urine Uric Acid Crystals PRESENT Urine Bacteria NEG Urine Mucus PRESENT White Blood Count 5.70 K/uL Red Blood Count 4.01 M/uL Hemoglobin 12.8 g/dL Hematocrit 37.0 % Mean Corpuscular Volume 92.3 fL Mean Corpuscular Hemoglobin 31.9 pg Mean Corpuscular Hemoglobin Concent 34.6 g/dl Platelet Count 236 K/uL Mean Platelet Volume 9.6 fL Neutrophils (%) (Auto) 76.2 % Lymphocytes (%) (Auto) 6.1 % Monocytes (%) (Auto) 9.8 % Eosinophils (%) (Auto) 7.7 % Basophils (%) (Auto) 0.0 % Neutrophils # (Auto) 4.34 K/uL Lymphocytes # (Auto) 0.35 K/uL Monocytes # (Auto) 0.56 K/uL Eosinophils # (Auto) 0.44 K/uL Basophils # (Auto) 0.00 K/uL RDW Standard Deviation 55.5 fL RDW Coefficient of Variation 16.5 % Immature Granulocyte % (Auto) 0.2 % Immature Granulocyte # (Auto) 0.01 K/uL Prothrombin Time 11.1 SECONDS Prothromb Time International Ratio 1.0 Activated Partial Thromboplast Time 28.0 SECONDS Partial Thromboplastin Ratio 1.1 Sodium Level 134 mmol/L Potassium Level 4.3 mmol/L Chloride Level 101 mmol/L Carbon Dioxide Level 25 mmol/L Anion Gap 8.0 mmol/L Blood Urea Nitrogen 27 mg/dl Creatinine 1.20 mg/dl Est Creatinine Clear Calc Drug Dose 50.0 ml/min Estimated GFR () 50.5 Estimated GFR (Non- 43.6 BUN/Creatinine Ratio 22.3 Random Glucose 153 mg/dl Calcium Level 9.1 mg/dl Lactic Acid Level 1.4 mmol/L Bedside Glucose 120 mg/dl Test 10/24/16 20:14 10/25/16 06:30 10/25/16 07:25 Bedside Glucose 158 mg/dl Urine Color DK YELLOW Urine Appearance CLEAR Urine pH 5.0 Urine Specific [place] 1.021 Urine Protein TRACE Urine Glucose (UA) NEG Urine Ketones TRACE Urine Occult Blood NEG Urine Nitrite NEG Urine Bilirubin NEG Urine Urobilinogen NEG Urine Leukocyte Esterase NEG Urine WBC (Auto) 1-5 /hpf Urine RBC (Auto) 0-4 /hpf Urine Hyaline Casts (Auto) 1-5 /lpf Urine Epithelial Cells (Auto) >30 /lpf Urine Bacteria (Auto) 1+ Urine Renal Epithelial Cells /lpf Urine Yeast (Auto) Sodium Level 137 mmol/L Potassium Level 4.0 mmol/L Chloride Level 105 mmol/L Carbon Dioxide Level 19 mmol/L Anion Gap 13.0 mmol/L Blood Urea Nitrogen 22 mg/dl Creatinine 0.96 mg/dl Est Creatinine Clear Calc Drug Dose 62.8 ml/min Estimated GFR () 66.1 Estimated GFR (Non- 57.0 BUN/Creatinine Ratio 23.3 Random Glucose 118 mg/dl Estimated Average Glucose 154 mg/dl Hemoglobin A1c 7.0 % Calcium Level 8.2 mg/dl Assessment and Plan Pt is a 76 yo female who presents to ER via EMS for multiple falls and found to have septic shock suspected from uti poa Multiple falls likely secondary to sepsis vs gait dysfunction vs autonomic dysfunction from Parkinson's disease. No leukocytosis but febrile and hypotensive in ER. Pt received 1 liter NS bolus in ER and we will cont IVF NS, empirically treat at this time with zosyn. Pt was just finishing course of bactrim for recent UTI. Will repeat UA and obtain urine cx and blood cultures. HTN - bp improved will follow consider restart robert i as will help diabetic renal disease, once blood pressure is slightly better NIDDM - Will hold metformin due to dehydration likely from sepsis. Start on ISS , obtain HgA1C. Parkinson's Disorder - Cont Stalevo, seems to be at baseline, alert and oriented x 3 Gait dysfunction - PT/OT consult, daughter expresses concern with swallowing and will re engage speech Bullous pemphigus - Cont imuran DVT ppx with heparin
[2016-10-26] VITALS (7 sets, daily range): BP systolic 102–111; BP diastolic 61–70; PULSE 72–90; TEMP 36.3–37; O2SAT 94–95
[2016-10-26] MEDS: SODIUM CHLORIDE 0.9% 1000ML 1,000 ML IV SCH ×4 (00:46→20:57)
[2016-10-26 06:28] LABS: CREATININE 0.72 mg/dl (0.60-1.20); POTASSIUM 3.8 mmol/L (3.5-5.1)
[2016-10-26] MEDS: HEPARIN SOD 5000 UNIT/0.5 ML CARP SQ SCH ×3 (06:36→21:06)
[2016-10-26] MEDS: PIPERACILL/TAZOBAC IV 3.375 GM in DEXTROSE 5% 100ML 100 ML IV SCH (06:36)
[2016-10-26] MEDS: ENTACAPONE 200 MG TAB PO SCH ×4 (08:23→20:58)
[2016-10-26] MEDS: AZATHIOPRINE 50 MG TAB PO SCH (08:24)
[2016-10-26] MEDS: ASPIRIN 81 MG ECTAB PO SCH (08:24)
[2016-10-26] MEDS: CARBIDOPA/LEVODOPA 25/100MG TAB PO SCH ×4 (08:24→20:57)
[2016-10-26] MEDS: INSULIN ASPART 100 UNITS/ML 3 ML PEN SC SCH ×4 (08:31→21:04)
[2016-10-26] MEDS: LEVOFLOXACIN 500 MG TAB PO SCH (14:03)
[2016-10-26] MEDS ORDERED: LVQ500 PO (14:53)
[2016-10-26] MEDS ORDERED: ULT50X PO (14:53)
[2016-10-26] MEDS ORDERED: NVLGIPEN SC (14:53)
--- NOTE | 2016-10-26 14:53 | Progress Note ---
Subjective Date of Service: Oct 26, 2016. Subjective this pt is feeling somewhat better is confused at times, is agreeable to consider snf upon discharge and has [facility] Problem List Medical Problems: (1) Contusion of multiple sites Status: Acute (2) Dehydration Status: Acute (3) Fall Status: Acute (4) Fall Status: Acute (5) Fever Status: Acute (6) Hyponatremia Status: Acute (7) Parkinsons disease Status: Acute (8) UTI (urinary tract infection) Status: Acute (9) Weakness Status: Acute Review of Systems Constitutional: + fatigue, + weakness, No chills, No fever Respiratory: No cough, No shortness of breath Cardiac: No chest pain, No edema Abdomen: No diarrhea, No nausea, No pain, No vomiting Musculoskeletal: No joint pain, No muscle pain Neurologic: + balance problems, + memory loss, + problem reported, + weakness Psychiatric: No anhedonism, No depression symptoms Objective Vital Signs Date Time Temp Pulse Resp B/P Pulse Ox O2 Delivery O2 Flow Rate FiO2 10/26/16 12:00 Room Air 10/26/16 11:20 36.4 90 16 110/70 94 Room Air 10/26/16 07:45 36.6 79 18 104/66 95 Room Air 10/26/16 07:45 Room Air 10/26/16 04:00 36.3 76 18 102/61 95 Room Air 10/26/16 04:00 Room Air 10/26/16 00:00 Room Air 10/25/16 22:39 36.9 78 18 92/53 94 Room Air 10/25/16 20:00 92 Room Air 10/25/16 19:48 36.9 79 20 90/56 92 Room Air 10/25/16 16:00 92 Room Air 10/25/16 15:28 37.0 87 18 96/57 92 Room Air Physical Exam General Appearance: WD/WN, + mild distress Neck: supple, no JVD Respiratory/Chest: + decreased breath sounds, + accessory muscle use Cardiovascular: regular rate, rhythm, + systolic murmur Abdomen: normal bowel sounds, non tender, soft Extremities: + pedal edema, + swelling Neurologic/Psychiatric: + pertinent finding (rigidity and tremor consisent with PD) Laboratory Results Last 24 Hours Test 10/25/16 16:18 10/25/16 20:09 10/26/16 05:45 10/26/16 07:44 Bedside Glucose 120 mg/dl 144 mg/dl 136 mg/dl Sodium Level 139 mmol/L Potassium Level 3.8 mmol/L Chloride Level 109 mmol/L Carbon Dioxide Level 20 mmol/L Anion Gap 10.0 mmol/L Blood Urea Nitrogen 14 mg/dl Creatinine 0.72 mg/dl Est Creatinine Clear Calc Drug Dose 83.8 ml/min Estimated GFR () 93.6 Estimated GFR (Non- 80.8 BUN/Creatinine Ratio 19.0 Random Glucose 110 mg/dl Calcium Level 8.0 mg/dl Test 10/26/16 11:25 Bedside Glucose 141 mg/dl Assessment and Plan Pt is a 76 yo female who presents to ER via EMS for multiple falls and found to have siors suspected from uti poa Multiple falls likely secondary to sepsis vs gait dysfunction vs autonomic dysfunction from Parkinson's disease. No leukocytosis but febrile and hypotensive in ER. Pt received 1 liter NS bolus in ER and we will cont IVF NS, empirically treat at this time with zosyn. Pt was just finishing course of bactrim for recent UTI. cultures not revealing but may be blunted in growth from recent antibiotic use, has rash that maybe from zosyn will switch to levaquin has clinically improved with blood pressure and alertness, will complete 7 day course for complicated uti, given concurrent use of imuran HTN - bp improved will follow consider restart robert i as will help diabetic renal disease, once blood pressure is slightly better NIDDM - Will hold metformin due to dehydration likely from sepsis. ssi, [id number]. Parkinson's Disorder - Stalevo, seems to be at baseline, alert and oriented x 3 Gait dysfunction - PT/OT consult, daughter expresses concern with swallowing and will re engage speech, refer to snf for subacute rehab Bullous pemphigus - Cont imuran DVT ppx with heparin
--- NOTE | 2016-10-26 14:56 | Discharge Instructions ---
Discharge Instructions Admission Reason for Admission: Fall, Sepsis Discharge Discharge Diagnosis / Problem: sirs from uti poa, falls, parkinsons disease Discharge Goals Goal(s): Diagnostic testing, Therapeutic intervention Activity Recommendations Activity Level: Assistance Required Therapies: Physical Therapy, Occupational Therapy, Speech Therapy . Additional Information Patient informed of condition: Yes Advance Directives: Yes DNR: Yes Level of Care: Skilled Communicable Disease: No Prognosis: Stable Das Catheter: No Instructions / Follow-Up Instructions / Follow-Up Pt is a 76 yo female who presents to ER via EMS for multiple falls and found to have siors suspected from uti poa Multiple falls likely secondary to sepsis vs gait dysfunction vs autonomic dysfunction from Parkinson's disease. No leukocytosis but febrile and hypotensive in ER. Pt received 1 liter NS bolus in ER, empirically treated with zosyn. Pt was just finishing course of bactrim for recent UTI. cultures not revealing but may be blunted in growth from recent antibiotic use, has rash that maybe from zosyn will switch to levaquin has clinically improved with blood pressure and alertness, will complete 7 day course for complicated uti, given concurrent use of imuran HTN - bp improved will follow consider restart robert i as will help diabetic renal disease, once blood pressure is slightly better NIDDM - metformin. ssi, [id number]. Parkinson's Disorder - Stalevo, seems to be at baseline, alert and oriented x 3 Gait dysfunction - PT/OT consult, daughter expresses concern with swallowing and will re engage speech, refer to snf for subacute rehab Bullous pemphigus - Cont imuran Anemia suspect is dilutional from hydration, recommend MVI with iron and follow up in one week, add gi prevention also Current Hospital Diet Patient's current hospital diet: Diabetes Type 2 Diet Discharge Diet Recommended Diet: Diabetes Type 2 Diet Pending Studies Studies pending at discharge: no Laboratory Results Hemoglobin A1c Test 10/25/16 07:25 Range/Units Estimated Average Glucose 154 mg/dl Hemoglobin A1c 7.0 H 4.5-5.6 % Medical Emergencies . Who to Call and When: Medical Emergencies: If at any time you feel your situation is an emergency, please call 911 immediately. . Non-Emergent Contact Non-Emergency issues call your: Primary Care Provider . . "Provider Documentation" section prepared by David Henson. Core Measure Problem Core Measures: None
[2016-10-26] MEDS: METFORMIN HCL 850 MG TAB PO SCH (17:08)
[2016-10-27] MEDS: SODIUM CHLORIDE 0.9% 1000ML 1,000 ML IV SCH ×2 (03:13→10:03)
[2016-10-27 05:22] VITALS: BP 111/67; PULSE 74; TEMP 36.9; O2SAT 94
[2016-10-27] MEDS: HEPARIN SOD 5000 UNIT/0.5 ML CARP SQ SCH ×2 (06:19→12:15)
[2016-10-27] MEDS: ENTACAPONE 200 MG TAB PO SCH ×3 (06:21→15:20)
[2016-10-27] MEDS: CARBIDOPA/LEVODOPA 25/100MG TAB PO SCH ×3 (06:21→15:20)
[2016-10-27] MEDS: INSULIN ASPART 100 UNITS/ML 3 ML PEN SC SCH ×2 (06:30→11:00)
[2016-10-27 07:18] VITALS: BP 145/83; PULSE 70; TEMP 36.6; O2SAT 96
[2016-10-27 07:21] LABS: HEMATOCRIT 28.1 % (37-47); MEAN CELL VOLUME 92.1 fL (80-100); MEAN CORPUSCULAR HEMOGLOBIN 32.1 pg (25-34); MEAN CORPUSCULAR HGB CONC 34.9 g/dl (32-36); MEAN PLATELET VOLUME 9.7 fL (7.4-10.4); PLATELET COUNT 177 K/uL (130-400); RED BLOOD COUNT 3.05 M/uL (4.2-5.4)
[2016-10-27 07:57] LABS: BUN/CREATININE RATIO 13.9 (10-20); CREATININE 0.57 mg/dl (0.60-1.20); POTASSIUM 3.7 mmol/L (3.5-5.1)
[2016-10-27] MEDS ORDERED: MULT-513 PO (07:58)
[2016-10-27] MEDS ORDERED: PANT40TA PO (07:58)
[2016-10-27 08:00] VITALS: O2SAT 96
[2016-10-27] MEDS: ASPIRIN 81 MG ECTAB PO SCH (08:28)
[2016-10-27] MEDS: AZATHIOPRINE 50 MG TAB PO SCH (08:29)
[2016-10-27] MEDS: METFORMIN HCL 850 MG TAB PO SCH ×2 (08:30→12:15)
[2016-10-27] MEDS: LEVOFLOXACIN 500 MG TAB PO SCH (11:00)
[2016-10-27 12:00] VITALS: BP 130/67; PULSE 70; TEMP 36.8; O2SAT 97
[2016-10-27 15:35] VITALS: BP 130/67; PULSE 70; TEMP 36.8; O2SAT 97
--- NOTE | 2016-10-27 15:51 | Discharge Summary ---
Discharge Summary Admission Date: Oct 24, 2016 at 15:00 Discharge Date: Oct 26, 2016 Discharge Disposition: senior care facility Principal Diagnosis: sirs from uti poa, parksinsons disease Immunizations: Influenza Vaccine Date: Nov 24, 2010 History of Tetanus Vaccine?: No History of Pneumococcal: Yes Pneumococcal Date: Nov 24, 2010 History of Hepatitis B Vaccine: No Medication Reconciliation New Medications: Multivitamins/Minerals (Mvi With Minerals) Tab 1 TAB PO DAILY, #365 TAB Pantoprazole (Protonix) 40 Mg Tab 40 MG PO DAILY, #30 TAB 2 Refills Insulin Aspart (Novolog Flexpen) 100 Units/Ml Inj 0 UNITS SC ACHS, #1 PEN Levofloxacin (Levofloxacin) 500 Mg Tab 500 MG PO DAILY@11, #5 TAB Continued Medications: Acetaminophen (Tylenol) 500 Mg Tab 1000 MG PO DIRECTED PRN for Pain, TAB Aspirin (Aspirin Ec) 81 Mg Tab 81 MG PO DAILY Azathioprine (Imuran) 50 Mg Tab 50 MG PO DAILY, TAB Carbidopa/Levodopa/Entacapone 25/100/200MG (Stalevo 100) Tab 2 TAB PO QID, TAB Cyanocobalamin (Cyanocobalamin) 1,000 Mcg/Ml Inj 1000 MCG IM DIRECTED, #7 1000mcg IM x 1 on 07/02/2016, then weekly x 4 weeks, then monthly thereafter. Metformin Hcl (Glucophage) 850 Mg Tab 850 MG PO TIDM, TAB Tramadol HCl (Tramadol HCl) 50 Mg Tab 50 MG PO Q6H PRN for Pain for 30 Days, #120 TAB 0 Refills (This prescription has been renewed) Discontinued Medications: Lisinopril/Hctz (Zestoretic 20MG/12.5MG) Tab 1 TAB PO DAILY, TAB Sulfa/Trimethoprim (Bactrim Ds 800MG/160MG) Tab 1 TAB PO BID, #6 TAB Discharge Exam Review of Systems: Constitutional: + fatigue, + weakness, No chills, No fever Respiratory: No cough, No sputum, No wheezing Cardiovascular: No chest pain, No orthopnea Abdomen: No diarrhea, No nausea, No pain, No vomiting Musculoskeletal: No joint pain, No muscle pain Neurologic: + balance problems, + memory loss, + weakness, No paralysis Integumentary: + problem reported (large seborrheic keratosis central chest) Physical Exam: General Appearance: WD/WN, + mild distress Eyes: PERRL, EOMI Neck: supple, no JVD Respiratory/Chest: chest non-tender, lungs clear, normal breath sounds Cardiovascular: regular rate, rhythm, no murmur Abdomen / GI: normal bowel sounds, non tender, soft Extremities: no pedal edema, normal range of motion Neurologic/Psychiatric: alert, + pertinent finding (is oriented x 3 but at times gets confused in conversation) Hospital Course Pt is a 76 yo female who presents to ER via EMS for multiple falls and found to have siors suspected from uti poa Multiple falls likely secondary to sepsis vs gait dysfunction vs autonomic dysfunction from Parkinson's disease. No leukocytosis but febrile and hypotensive in ER. Pt received 1 liter NS bolus in ER empirically treated a with zosyn. Pt was just finishing course of bactrim for recent UTI. cultures not revealing but may be blunted in growth from recent antibiotic use, has rash that maybe from zosyn switched to levaquin has clinically improved with blood pressure and alertness, will complete 7 day course for complicated uti, given concurrent use of imuran Anemia, likely chronic disease, recommend mvi with iron and ppi to help if losses from gastric irritation HTN - bp improved will follow consider restart orbert i as will help diabetic renal disease, once blood pressure is slightly better NIDDM - Will hold metformin due to dehydration likely from sepsis. ssi, [id number]. Parkinson's Disorder - Stalevo, seems to be at baseline, alert and oriented x 3 Gait dysfunction - daughter expressesed concerns with swallowing and ability to care for mother at home Bullous pemphigus - Cont imuran DVT ppx with heparin Total Time Spent: Greater than 30 minutes This includes examination of the patient, discharge planning, medication reconciliation, and communication with other providers. Discharge Instructions Please refer to the electronic Patient Visit Report (Discharge Instructions) for additional information.
[2017-02-23] MEDS ORDERED: PRD75 PO (14:47)
[2017-02-23] MEDS ORDERED: LVQ500 PO (14:47)
== END 2016-10-27 16:10 | DRG 872 ==
LOC: ENRESERVDT → ENRESERVTM → EDBD 09:09 → C.EDA 09:10 → C.MED 15:00
PROVIDERS: ADMIT Hospitalist; ATTEND Internal Medicine
DX: A41.9 Sepsis, unspecified organism (principal); L10.9 Pemphigus, unspecified; N39.0 Urinary tract infection, site not specified; G20 Parkinson's disease; F17.210 Nicotine dependence, cigarettes, uncomplicated; E86.0 Dehydration; T36.0X5A Adverse effect of penicillins, initial encounter; Y92.239 Unspecified place in hospital as the place of occurrence of the external cause; L27.1 Localized skin eruption due to drugs and medicaments taken internally; E11.21 Type 2 diabetes mellitus with diabetic nephropathy; I10 Essential (primary) hypertension; I95.9 Hypotension, unspecified; T14.8 Other injury of unspecified body region; X58.XXXA Exposure to other specified factors, initial encounter; R29.6 Repeated falls; D63.8 Anemia in other chronic diseases classified elsewhere; D64.89 Other specified anemias; R26.89 Other abnormalities of gait and mobility; Z79.82 Long term (current) use of aspirin; Z79.84 Long term (current) use of oral hypoglycemic drugs; Z79.891 Long term (current) use of opiate analgesic; Z79.899 Other long term (current) drug therapy

== ENCOUNTER → 2016-11-15 | Outpatient (CLI) | payer BC ==
[~2016-11-15] MED LIST changes: -CLBCR60 TOP; -DOXY50CA26 PO; -LDDP5 TD; -LISI-787 PO; +LVQ500 PO; -MCTP EXT; +MRLP17X PO; +MULT-513 PO; +MULT1CHW37 PO; +NVLGIPEN SC; +PANT40TA PO; -PRD20 PO; +PRD75 PO; +SULF800T23 PO; -TRMCR180 EXT
[2016-11-15 08:49] LABS: BASO % 0.7 %; BASO ABS # 0.05 K/uL (0-0.2); COMPLETE YES; EOS % 13.7 %; HEMATOCRIT 30.9 % (37-47); IG% 0.3 %; LYMPH % 18.9 %; LYMPH ABS # 1.27 K/uL (1.2-3.4); MEAN CELL VOLUME 93.9 fL (80-100); MEAN CORPUSCULAR HEMOGLOBIN 31.3 pg (25-34); MEAN CORPUSCULAR HGB CONC 33.3 g/dl (32-36); MEAN PLATELET VOLUME 10.5 fL (7.4-10.4); MONO % 9.1 %; NEUT % 57.3 %; PLATELET COUNT 325 K/uL (130-400); RED BLOOD COUNT 3.29 M/uL (4.2-5.4); WHITE BLOOD COUNT 6.71 K/uL (4.8-10.8)
[2016-11-15 09:01] LABS: ALT/SGPT 15 U/L (12-78); BLOOD UREA NITROGEN 9 mg/dl (7-18); BUN/CREATININE RATIO 13.3 (10-20); CALCIUM 8.9 mg/dl (8.5-10.1); CARBON DIOXIDE 24 mmol/L (21-32); CHLORIDE 104 mmol/L (98-107); CREATININE 0.69 mg/dl (0.60-1.20); GLUCOSE 126 mg/dl (70-99); POTASSIUM 3.8 mmol/L (3.5-5.1); SODIUM 140 mmol/L (136-145)
[2016-11-15 09:04] LABS: ALKALINE PHOSPHATASE 88 U/L (45-117); AST/SGOT 15 U/L (15-37)
== END | disposition home or self-care (01) ==
LOC: C.LABUPNIT 08:30
PROVIDERS: ATTEND Family Medicine
DX: I10 Essential (primary) hypertension (principal)

== ENCOUNTER → 2016-12-12 | Outpatient (CLI) | payer BC ==
[2016-12-12 09:46] LABS: BASO % 0.7 %; BASO ABS # 0.04 K/uL (0-0.2); COMPLETE YES; HEMATOCRIT 31.5 % (37-47); IG% 0.3 %; LYMPH % 21.2 %; LYMPH ABS # 1.24 K/uL (1.2-3.4); MEAN CELL VOLUME 92.4 fL (80-100); MEAN CORPUSCULAR HEMOGLOBIN 30.5 pg (25-34); MEAN PLATELET VOLUME 10.8 fL (7.4-10.4); MONO % 9.8 %; PLATELET COUNT 300 K/uL (130-400); RED BLOOD COUNT 3.41 M/uL (4.2-5.4); WHITE BLOOD COUNT 5.84 K/uL (4.8-10.8)
[2016-12-12 09:56] LABS: ALT/SGPT 24 U/L (12-78); AST/SGOT 22 U/L (15-37); BLOOD UREA NITROGEN 9 mg/dl (7-18); BUN/CREATININE RATIO 14.3 (10-20); CARBON DIOXIDE 26 mmol/L (21-32); CHLORIDE 104 mmol/L (98-107); CREATININE 0.66 mg/dl (0.60-1.20); GLUCOSE 122 mg/dl (70-99); POTASSIUM 4.1 mmol/L (3.5-5.1); SODIUM 140 mmol/L (136-145)
[2016-12-12 09:58] LABS: ALB/GLOB RATIO 1.1 (0.9-2); ALKALINE PHOSPHATASE 87 U/L (45-117)
== END ==
LOC: C.LABUPNIT 09:32
PROVIDERS: ATTEND Family Medicine
DX: L12.9 Pemphigoid, unspecified (principal)

== ENCOUNTER → 2016-12-15 | Outpatient (CLI) | payer BC ==
[~2016-12-15] MED LIST changes: +MCTP EXT
[2016-12-15 08:34] LABS: BASO % 0.9 %; BASO ABS # 0.06 K/uL (0-0.2); COMPLETE YES; HEMATOCRIT 32.3 % (37-47); IG% 0.2 %; LYMPH % 21.5 %; LYMPH ABS # 1.38 K/uL (1.2-3.4); MEAN CELL VOLUME 93.1 fL (80-100); MEAN CORPUSCULAR HEMOGLOBIN 31.1 pg (25-34); MEAN CORPUSCULAR HGB CONC 33.4 g/dl (32-36); MEAN PLATELET VOLUME 11.2 fL (7.4-10.4); MONO % 9.8 %; NEUT % 56.6 %; PLATELET COUNT 287 K/uL (130-400); RED BLOOD COUNT 3.47 M/uL (4.2-5.4); WHITE BLOOD COUNT 6.43 K/uL (4.8-10.8)
== END | disposition home or self-care (01) ==
LOC: C.LABUPNIT 08:11
PROVIDERS: ATTEND Family Medicine
DX: Z01.89 Encounter for other specified special examinations (principal)

== ENCOUNTER → 2017-01-18 | Outpatient (CLI) | payer BC ==
[2017-01-18 20:06] LABS: URINE APPEARANCE CLEAR (CLEAR); URINE BILIRUBIN NEG (NEG); URINE COLOR YELLOW; URINE NITRITE POS (NEG); URINE SPECIFIC GRAVITY 1.007 (1.000-1.030); UROBILINOGEN NEG (NEG)
[2017-01-18 20:08] LABS: MANUAL MICROSCOPIC REQUIRED? NO; REVIEW REQ? NO
--- NOTE | 2017-03-14 06:12 | CODING QUERY MEDICAL NECESSITY ---
CQTREATMENT RENDERED WITHOUT A DIAGNOSIS To promote full compliance with coding requirements relating to patient care, physician participation is requested in all cases of weld technician uncertainty. Please assist us with providing a diagnosis/symptom for the test(s) below: A diagnosis/symptom was not documented on your Order. A valid diagnosis/symptom is required to bill all insurances. Please remember that we are unable to code a diagnosis of rule out, probable, possible, questionable, or suspected. Tests that require a diagnosis: DOS 01/18/17 URINE CULTURE Provider Signature: Date: Thank you Clementina Carbajal [employer] Once completed, please kindly fax back to [phone] For questions please call [phone]
== END | disposition home or self-care (01) ==
LOC: C.LABUPNIT 09:41
PROVIDERS: ATTEND Family Medicine
DX: Z01.89 Encounter for other specified special examinations (principal)

== ENCOUNTER → 2017-01-19 | Outpatient (CLI) | payer BC | LOC: C.LABUPNIT 14:44 | PROVIDERS: ATTEND Family Medicine | DX: J10.1 Influenza due to other identified influenza virus with other respiratory manifestations (principal) ==

== ENCOUNTER 2017-02-20 14:03 | Inpatient (IN) | payer BC, OTHER ==
[2017-02-20] VITALS (12 sets, daily range): BP systolic 96–125; BP diastolic 43–82; PULSE 95–110; TEMP 36.8–37.3; O2SAT 89–96; Ht 172.7 cm; Wt 103.3 kg
[~2017-02-20] VITALS: Ht 172.7 cm; Wt 103.3 kg
[~2017-02-20 14:03] MED LIST changes: -MCTP EXT; -MRLP17X PO; -MULT1CHW37 PO; -PRD75 PO; -SULF800T23 PO
[2017-02-20] MEDS ORDERED: SODIUM CHLORIDE 0.9% 500ML 500 ML IV STA ×2 (14:39→15:47)
--- NOTE | 2017-02-20 15:05 | DIAGNOSTIC IMAGING REPORT ---
CHEST ONE VIEW PORTABLE CLINICAL HISTORY: Sepsis dyspnea COMPARISON STUDY: 10/24/2016 FINDINGS: Parenchymal infiltrate left base. No regions of significant consolidative change. Mild prominence of pulmonary vasculature. Right lung is clear. IMPRESSION: Infiltrate left base. Electronically signed by: Lewis Wilcox M.D. 02/20/2017 3:03 PM Dictated Date/Time: 02/20/2017 3:02 PM
[2017-02-20 15:09] LABS: URINE APPEARANCE CLOUDY (CLEAR); URINE BILIRUBIN NEG (NEG); URINE COLOR DK YELLOW; URINE NITRITE NEG (NEG); URINE PH 5.5 (4.5-7.5); URINE SPECIFIC GRAVITY 1.016 (1.000-1.030); UROBILINOGEN NEG (NEG)
[2017-02-20 15:14] LABS: MANUAL MICROSCOPIC REQUIRED? NO; REVIEW REQ? YES
[2017-02-20] MEDS ORDERED: PIPERACILLIN/TAZOBACTAM 4.5 GM/100ML D5W IV STA (15:25)
[2017-02-20 15:26] LABS: URINE PATH CASTS 0-3 GRANULAR CASTS /lpf (0)
[2017-02-20 15:36] LABS: BASO % 0.1 %; BASO ABS # 0.01 K/uL (0-0.2); COMPLETE YES; EOS % 1.9 %; HEMATOCRIT 38.9 % (37-47); IG% 0.3 %; LYMPH % 3.3 %; LYMPH ABS # 0.55 K/uL (1.2-3.4); MEAN CELL VOLUME 88.4 fL (80-100); MEAN CORPUSCULAR HEMOGLOBIN 28.2 pg (25-34); MEAN CORPUSCULAR HGB CONC 31.9 g/dl (32-36); MEAN PLATELET VOLUME 10.1 fL (7.4-10.4); MONO % 3.2 %; NEUT % 91.2 %; PLATELET COUNT 343 K/uL (130-400); WHITE BLOOD COUNT 16.46 K/uL (4.8-10.8)
[2017-02-20] MEDS ORDERED: LEVOFLOXACIN / D5W 750 MG IV STA (15:41)
[2017-02-20 15:45] LABS: INR 1.2 (0.9-1.1); PARTIAL THROMBOPLASTIN RATIO 1.1; PROTHROMBIN TIME (PATIENT) 12.4 SECONDS (9.0-12.0)
[2017-02-20 15:53] LABS: BLOOD UREA NITROGEN 26 mg/dl (7-18); BUN/CREATININE RATIO 19.8 (10-20); CALCIUM 9.3 mg/dl (8.5-10.1); CARBON DIOXIDE 25 mmol/L (21-32); CHLORIDE 101 mmol/L (98-107); GLUCOSE 114 mg/dl (70-99); POTASSIUM 4.2 mmol/L (3.5-5.1); SODIUM 136 mmol/L (136-145)
[2017-02-20] MEDS ORDERED: MRLP17X PO (15:55)
[2017-02-20] MEDS ORDERED: SULF800T23 PO (15:55)
[2017-02-20 16:22] LABS: ALB/GLOB RATIO 0.9 (0.9-2); ALKALINE PHOSPHATASE 81 U/L (45-117); ALT/SGPT 15 U/L (12-78); AST/SGOT 10 U/L (15-37)
[2017-02-20] MEDS ORDERED: ACETAMINOPHEN 325 MG TAB ONE (17:03)
[2017-02-20] MEDS ORDERED: NURSING VERBAL MED ORDER ONE (17:15)
--- NOTE | 2017-02-20 17:55 | History and Physical ---
History & Physical Date & Time of Service: February 20, 2017 at 17:41 Chief Complaint: Altered Mental Status Primary Care Physician: Kojo Cohen MD History of Present Illness Source: patient, family 76 yr old woman with a hx of Parkinsons disease, Pemphigus, Dementia, DM2, HTN admitted for eval of altered mental status. Pt was recently started on Bactrim for Uti. This am pt was noted to be confused and was brought to the ER for further eval. Pt lives with her and daughter. Hx also obtained from pts sister. In ER pt was found to be hypotensive, UA was + for UTI. Increased serum lactate was noted. Pt was started on IV fluids and IV antibiotics. Blood and urine cultures were obtained. pt also reports recent fall leading to abrasion over left knee and contusion over left shoulder and left jaw. No LOC. Ambulates with walker. also has a scooter. Family History No pertinent family history Social History Smoking Status: Current Some Day Smoker Drug Use: none Marital Status: Occupational Status: unemployed Immunizations Influenza Vaccine Date: Nov 24, 2010 History of Tetanus Vaccine?: No History of Pneumococcal: Yes Pneumococcal Date: Nov 24, 2010 History of Hepatitis B Vaccine: No Multi-Drug Resistant Organisms History of MDRO: No Type of MDRO: MRSA Allergies Coded Allergies: No Known Allergies (Unverified , 02/20/17) Home Medications Scheduled Aspirin (Aspirin Ec), 81 MG PO DAILY Azathioprine (Imuran), 50 MG PO DAILY Carbidopa/Levodopa/Entacapone 25/100/200MG (Stalevo 100), 2 TAB PO QID Cyanocobalamin (Cyanocobalamin), 1,000 MCG IM DIRECTED Insulin Aspart (Novolog Flexpen), 0 UNITS SC ACHS Metformin Hcl (Glucophage), 850 MG PO TIDM Multivitamins/Minerals (Mvi With Minerals), 1 TAB PO DAILY Pantoprazole (Protonix), 40 MG PO DAILY Sulfa/Trimethoprim (Bactrim Ds 800MG/160MG), 1 TAB PO BID Scheduled PRN Acetaminophen (Tylenol), 1,000 MG PO DIRECTED PRN for Pain Polyethylene (Miralax), 17 GM PO DAILY PRN for Constipation Tramadol HCl (Tramadol HCl), 50 MG PO Q6H PRN for Pain Review of Systems Constitutional: + fatigue Eyes: No diplopia, No discharge, No eye pain, No problem reported, No redness, No worsening of vision ENT: No dental problems, No hearing loss, No nasal symptoms, No problem reported, No sore throat, No tinnitus, No trouble swallowing, No unusual epistaxis Respiratory: No cough, No dyspnea at rest, No dyspnea on exertion, No hemoptysis, No problem reported, No shortness of breath, No sputum, No wheezing Cardiovascular: No PND, No chest pain, No claudication, No edema, No orthopnea , No palpitations, No problem reported Abdomen: No GI bleeding, No constipation, No diarrhea, No nausea, No pain, No problem reported, No vomiting Musculoskeletal: + muscle pain Genitourinary - Female: No dysmenorrhea, No dysuria, No hematuria, No menorrhagia, No metrorrhagia, No , No problem reported, No rash, No urinary frequency, No urinary incontinence, No urinary retention, No urinary urgency, No vaginal bleeding, No vaginal discharge, No vaginal itching, No vulvodynia Neurologic: + memory loss Psychiatric: No anhedonism, No anxiety, No depression symptoms, No insomnia, No problem reported, No substance abuse Endocrine: No excessive thirst, No excessive urination, No fatigue, No problem reported Hematologic / Lymphatic: No abnormal bleeding/bruising, No clotting problems, No night sweats, No problem reported, No swollen lymph nodes Integumentary: + rash Physical Exam Vital Signs Date Time Temp Pulse Resp B/P Pulse Ox O2 Delivery O2 Flow Rate FiO2 02/20/17 17:35 121 22 93/54 96 Room Air 02/20/17 15:41 118 24 99/64 96 Room Air 02/20/17 14:13 37.2 120 26 98/52 96 Room Air 02/20/17 14:13 96 Room Air General Appearance: WD/WN Head: normocephalic Eyes: normal inspection ENT: normal ENT inspection Neck: supple, no adenopathy, thyroid normal, no JVD Respiratory/Chest: chest non-tender, lungs clear, normal breath sounds Cardiovascular: regular rate, rhythm, no edema, + systolic murmur Abdomen/GI: normal bowel sounds, non tender, soft Back: normal inspection Extremities/Musculoskelatal: normal inspection, no calf tenderness, + swelling (right calf), + pertinent finding (abrasion over right knee. 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 nml as tested, no motor/sensory deficits, alert, normal reflexes Skin: + pertinent finding (erythroderma) Diagnostics Laboratory Results Results Past 24 Hours Test 02/20/17 14:45 02/20/17 14:52 02/20/17 15:15 02/20/17 15:24 Range/Units Urine Color DK YELLOW Urine Appearance CLOUDY CLEAR Urine pH 5.5 4.5-7.5 Urine Specific [place] 1.016 1.000-1.030 Urine Protein NEG NEG Urine Glucose (UA) NEG NEG Urine Ketones TRACE NEG Urine Occult Blood NEG NEG Urine Nitrite NEG NEG Urine Bilirubin NEG NEG Urine Urobilinogen NEG NEG Urine Leukocyte Esterase LARGE NEG Urine WBC (Auto) >30 0-5 /hpf Urine RBC (Auto) 0-4 0-4 /hpf Urine Hyaline Casts (Auto) 1-5 0-5 /lpf Urine Epithelial Cells (Auto) 10-20 0-5 /lpf Urine Bacteria (Auto) NEG NEG Urine Pathogenic Casts 0-3 GRANULAR CASTS 0 /lpf Influenza Type A Antigen Neg for Influ A NEG Influenza Type B Antigen Neg for Influ B NEG White Blood Count 16.46 4.8-10.8 K/uL Red Blood Count 4.40 4.2-5.4 M/uL Hemoglobin 12.4 12.0-16.0 g/dL Hematocrit 38.9 37-47 % Mean Corpuscular Volume 88.4 80-100 fL Mean Corpuscular Hemoglobin 28.2 25-34 pg Mean Corpuscular Hemoglobin Concent 31.9 32-36 g/dl Platelet Count 343 130-400 K/uL Mean Platelet Volume 10.1 7.4-10.4 fL Neutrophils (%) (Auto) 91.2 % Lymphocytes (%) (Auto) 3.3 % Monocytes (%) (Auto) 3.2 % Eosinophils (%) (Auto) 1.9 % Basophils (%) (Auto) 0.1 % Neutrophils # (Auto) 15.02 1.4-6.5 K/uL Lymphocytes # (Auto) 0.55 1.2-3.4 K/uL Monocytes # (Auto) 0.52 0.11-0.59 K/uL Eosinophils # (Auto) 0.31 0-0.5 K/uL Basophils # (Auto) 0.01 0-0.2 K/uL RDW Standard Deviation 49.1 36.4-46.3 fL RDW Coefficient of Variation 15.4 11.5-14.5 % Immature Granulocyte % (Auto) 0.3 % Immature Granulocyte # (Auto) 0.05 0.00-0.02 K/uL Prothrombin Time 12.4 9.0-12.0 SECONDS Prothromb Time International Ratio 1.2 0.9-1.1 Activated Partial Thromboplast Time 29.7 21.0-31.0 SECONDS Partial Thromboplastin Ratio 1.1 Sodium Level 136 136-145 mmol/L Potassium Level 4.2 3.5-5.1 mmol/L Chloride Level 101 98-107 mmol/L Carbon Dioxide Level 25 21-32 mmol/L Anion Gap 10.0 3-11 mmol/L Blood Urea Nitrogen 26 7-18 mg/dl Creatinine 1.30 0.60-1.20 mg/dl Est Creatinine Clear Calc Drug Dose 44.5 ml/min Estimated GFR () 45.8 Estimated GFR (Non- 39.5 BUN/Creatinine Ratio 19.8 10-20 Random Glucose 114 70-99 mg/dl Calcium Level 9.3 8.5-10.1 mg/dl Total Bilirubin 0.5 0.2-1 mg/dl Aspartate Amino Transf (AST/SGOT) 10 15-37 U/L Alanine Aminotransferase (ALT/SGPT) 15 12-78 U/L Alkaline Phosphatase 81 45-117 U/L Troponin I < 0.015 0-0.045 ng/ml Total Protein 7.2 6.4-8.2 gm/dl Albumin 3.4 3.4-5.0 gm/dl Globulin 3.8 2.5-4.0 gm/dl Albumin/Globulin Ratio 0.9 0.9-2 Bedside Lactic Acid Venous 5.14 0.90-1.70 mmol/L Test 02/20/17 16:01 Range/Units Microbiology Results 02/20/17 Blood Culture, Received Pending 02/20/17 Blood Culture, Received Pending 02/20/17 MRSA DNA Surveillance Screen, Received Pending 02/20/17 Urine Culture, Received Pending Diagnostic Radiology CHEST ONE VIEW PORTABLE CLINICAL HISTORY: Sepsis dyspnea COMPARISON STUDY: 10/24/2016 FINDINGS: Parenchymal infiltrate left base. No regions of significant consolidative change. Mild prominence of pulmonary vasculature. Right lung is clear. IMPRESSION: Infiltrate left base. Electronically signed by: Lewis Wilcox M.D. 02/20/2017 3:03 PM Dictated Date/Time: 02/20/2017 3:02 PM EKG Atrial fibrillation Impression Assessment and Plan UTI Treat with IV Levaquin. Panculture IV fluids. Recheck BMP in am. Parkinsons disease Continue home meds PT and OT eval Consult Neuro DM2 Continue with metformin check A1c. SSI. Pemphigus Continue with OP immunosuppressants Swelling right calf Check venous doppler US to rule out DVT. HTN Hold BP meds for now until BP improves Level of Care Telemetry Resuscitation Status DO NOT RESUSCITATE VTE Prophylaxis VTE Risk Assessment Done? Y/N: Yes Risk Level: High Given or contraindicated: SCD's
[2017-02-20] MEDS ORDERED: ACETAMINOPHEN 325 MG TAB PO PRN (18:00)
[2017-02-20] MEDS ORDERED: ZOLPIDEM TARTRATE 5 MG TAB PO PRN (18:00)
[2017-02-20] MEDS ORDERED: POLYETHYLENE (MIRALAX) 17 GM PACK PO PRN (18:15)
--- NOTE | 2017-02-20 18:24 | EMERGENCY ROOM VISIT NOTE ---
History Report prepared by Jose Alfredo: Fatou Carcamo Under the Supervision of: Dr. David Staley M.D. First contact with patient: 14:16 Chief Complaint: ALTERED MENTAL STATUS Stated Complaint: ALTERED MENTAL STATUS Nursing Triage Summary: Patient arrived via ALS from home with complaints of AMS. Family arrived at her house and noticed she was laying on her deshaun lift pad and has had decreased mobility recently. Patient was diagnosed yesterday with UTI and started on Bactrim. Patient complaining of aches all over and was a little nauseated on arrival. Per EMS patient took tylenol this morning but unsure how much. Afebrile for EMS. History of Present Illness The patient is a 76 year old female who presents to the Emergency Room generalized weakness beginning this morning . Per nursing staff the patient was found at home on the was having trouble getting up and moving around. The patient states that she was diagnosed with a UTI yesterday and was put on Bactrim 2 times a day. She complains of weakness and body aches all over. She denies any fever, vomiting, coughing, dysuria, abdominal pain, diarrhea, black or bloody stools, confusion, and headache. She reports that she has not noticed any leg swelling. The patient notes a history of Parkinsons. Source of History: patient Onset: this morning Position: other (global) Quality: other (altered mental status) Timing: constant Associated Symptoms: + weakness, No abdominal pain, No cough, No diarrhea, No fevers, No headache, No urinary symptoms, No vomiting Note: She complains of pain all over. She denies any black or bloody stools, confusion. Review of Systems See HPI for pertinent positives & negatives. A total of 10 systems reviewed and were otherwise negative. Past Medical & Surgical Medical Problems: (1) Ambulatory dysfunction (2) Elevated troponin (3) Gait disorder (4) Rhabdomyolysis (5) Sepsis Family History No pertinent family history Social History Smoking Status: Current Some Day Smoker Drug Use: none Marital Status: Housing Status: lives with family Occupation Status: unemployed Current/Historical Medications Scheduled Aspirin (Aspirin Ec), 81 MG PO DAILY Azathioprine (Imuran), 50 MG PO DAILY Carbidopa/Levodopa/Entacapone 25/100/200MG (Stalevo 100), 2 TAB PO QID Cyanocobalamin (Cyanocobalamin), 1,000 MCG IM DIRECTED Insulin Aspart (Novolog Flexpen), 0 UNITS SC ACHS Metformin Hcl (Glucophage), 850 MG PO TIDM Multivitamins/Minerals (Mvi With Minerals), 1 TAB PO DAILY Pantoprazole (Protonix), 40 MG PO DAILY Sulfa/Trimethoprim (Bactrim Ds 800MG/160MG), 1 TAB PO BID Scheduled PRN Acetaminophen (Tylenol), 1,000 MG PO DIRECTED PRN for Pain Polyethylene (Miralax), 17 GM PO DAILY PRN for Constipation Tramadol HCl (Tramadol HCl), 50 MG PO Q6H PRN for Pain Allergies Coded Allergies: No Known Allergies (Unverified , 02/20/17) Physical Exam Vital Signs Date Time Temp Pulse Resp B/P Pulse Ox O2 Delivery O2 Flow Rate FiO2 02/20/17 18:13 120 18 107/44 95 Room Air 02/20/17 17:35 121 22 93/54 96 Room Air 02/20/17 15:41 118 24 99/64 96 Room Air 02/20/17 14:13 37.2 120 26 98/52 96 Room Air 02/20/17 14:13 96 Room Air Physical Exam Constitutional: Vital signs reviewed. She is mildly hypotensive. Eyes: Pupils are equal round reactive to light. Conjunctiva are noninjected. ENT: Pharynx is clear without erythema or exudate. Mucous membranes are moist. Neck supple without meningeal signs. Respiratory: Clear to auscultation bilaterally. Breath sounds are equal bilaterally. Cardiovascular: Tachycardic rate and irregularly irregular rhythm. No rubs or gallops. GI: Soft, nondistended and nontender. Bowel sounds are present. Musculoskeletal: No peripheral edema. No lower extremity tenderness. Integumentary: No cyanosis. Neurological: The patient is awake and alert. No focal deficits. Psychiatric: Normal affect. Medical Decision & Procedures ER Provider Diagnostic Interpretation: X-ray results as stated below per interpretation by me and the radiologist: CHEST ONE VIEW PORTABLE FINDINGS: Parenchymal infiltrate left base. No regions of significant consolidative change. Mild prominence of pulmonary vasculature. Right lung is clear. IMPRESSION: Infiltrate left base. Electronically signed by: Lewis Wilcox M.D. 02/20/2017 3:03 PM Dictated Date/Time: 02/20/2017 3:02 PM Laboratory Results 02/20/17 15:15 Red Blood Count 4.40, Mean Corpuscular Volume 88.4, Mean Corpuscular Hemoglobin 28.2, Mean Corpuscular Hemoglobin Concent 31.9, Mean Platelet Volume 10.1, Neutrophils (%) (Auto) 91.2, Lymphocytes (%) (Auto) 3.3, Monocytes (%) (Auto) 3.2, Eosinophils (%) (Auto) 1.9, Basophils (%) (Auto) 0.1, Neutrophils # (Auto) 15.02, Lymphocytes # (Auto) 0.55, Monocytes # (Auto) 0.52, Eosinophils # (Auto) 0.31, Basophils # (Auto) 0.01 02/20/17 15:15 Test 02/20/17 14:45 02/20/17 14:52 02/20/17 15:15 02/20/17 15:24 Urine Color DK YELLOW Urine Appearance CLOUDY (CLEAR) Urine pH 5.5 (4.5-7.5) Urine Specific [place] 1.016 (1.000-1.030) Urine Protein NEG (NEG) Urine Glucose (UA) NEG (NEG) Urine Ketones TRACE (NEG) Urine Occult Blood NEG (NEG) Urine Nitrite NEG (NEG) Urine Bilirubin NEG (NEG) Urine Urobilinogen NEG (NEG) Urine Leukocyte Esterase LARGE (NEG) Urine WBC (Auto) >30 /hpf (0-5) Urine RBC (Auto) 0-4 /hpf (0-4) Urine Hyaline Casts (Auto) 1-5 /lpf (0-5) Urine Epithelial Cells (Auto) 10-20 /lpf (0-5) Urine Bacteria (Auto) NEG (NEG) Urine Pathogenic Casts 0-3 GRANULAR CASTS /lpf (0) Influenza Type A Antigen Neg for Influ A (NEG) Influenza Type B Antigen Neg for Influ B (NEG) White Blood Count 16.46 K/uL (4.8-10.8) Red Blood Count 4.40 M/uL (4.2-5.4) Hemoglobin 12.4 g/dL (12.0-16.0) Hematocrit 38.9 % (37-47) Mean Corpuscular Volume 88.4 fL (80-100) Mean Corpuscular Hemoglobin 28.2 pg (25-34) Mean Corpuscular Hemoglobin Concent 31.9 g/dl (32-36) Platelet Count 343 K/uL (130-400) Mean Platelet Volume 10.1 fL (7.4-10.4) Neutrophils (%) (Auto) 91.2 % Lymphocytes (%) (Auto) 3.3 % Monocytes (%) (Auto) 3.2 % Eosinophils (%) (Auto) 1.9 % Basophils (%) (Auto) 0.1 % Neutrophils # (Auto) 15.02 K/uL (1.4-6.5) Lymphocytes # (Auto) 0.55 K/uL (1.2-3.4) Monocytes # (Auto) 0.52 K/uL (0.11-0.59) Eosinophils # (Auto) 0.31 K/uL (0-0.5) Basophils # (Auto) 0.01 K/uL (0-0.2) RDW Standard Deviation 49.1 fL (36.4-46.3) RDW Coefficient of Variation 15.4 % (11.5-14.5) Immature Granulocyte % (Auto) 0.3 % Immature Granulocyte # (Auto) 0.05 K/uL (0.00-0.02) Prothrombin Time 12.4 SECONDS (9.0-12.0) Prothromb Time International Ratio 1.2 (0.9-1.1) Activated Partial Thromboplast Time 29.7 SECONDS (21.0-31.0) Partial Thromboplastin Ratio 1.1 Anion Gap 10.0 mmol/L (3-11) Est Creatinine Clear Calc Drug Dose 44.5 ml/min Estimated GFR () 45.8 Estimated GFR (Non- 39.5 BUN/Creatinine Ratio 19.8 (10-20) Calcium Level 9.3 mg/dl (8.5-10.1) Total Bilirubin 0.5 mg/dl (0.2-1) Aspartate Amino Transf (AST/SGOT) 10 U/L (15-37) Alanine Aminotransferase (ALT/SGPT) 15 U/L (12-78) Alkaline Phosphatase 81 U/L (45-117) Troponin I < 0.015 ng/ml (0-0.045) Total Protein 7.2 gm/dl (6.4-8.2) Albumin 3.4 gm/dl (3.4-5.0) Globulin 3.8 gm/dl (2.5-4.0) Albumin/Globulin Ratio 0.9 (0.9-2) Bedside Lactic Acid Venous 5.14 mmol/L (0.90-1.70) Test 02/20/17 18:00 Date/Time Source Procedure Growth Status 02/20/17 16:43 Nasal MRSA DNA Surveillance Screen - Final Specimen Positive for MRSA by DNA Probe Complete Laboratory results as reviewed by me. Medications Administered Medications (Trade) Dose Ordered Sig/Julián Route Start Time Stop Time Status Last Admin Dose Admin Sodium Chloride (Nss 500ml) 500 ml @ 999 mls/hr Q31M STAT IV 02/20/17 14:39 02/20/17 15:09 DC 02/20/17 14:49 999 MLS/HR Piperacillin Sod/ Tazobactam Sod 4.5 gm 4.5 gm NOW STAT IV 02/20/17 15:25 02/20/17 15:26 DC 02/20/17 15:40 4.5 GM Levofloxacin ml @ 100 mls/hr NOW STAT IV 02/20/17 15:41 02/20/17 15:43 DC 02/20/17 16:44 100 MLS/HR Sodium Chloride (Nss 500ml) 500 ml @ 999 mls/hr Q31M STAT IV 02/20/17 15:47 02/20/17 16:17 DC 02/20/17 15:51 999 MLS/HR Acetaminophen (Tylenol Tab) 650 mg STK-MED ONCE .ROUTE 02/20/17 17:03 02/20/17 17:04 DC 02/20/17 17:05 650 MG ECG Indication: other (AMS) Rate (beats per minute): 115 Rhythm: atrial fibrillation, other (with RVR) Findings: nonspecific-ST abn, other (LVH, RVR) ED Course 1416: The patient was evaluated in room C11. A complete history and physical exam was performed. 1439: Sodium Chloride 500 ml @ 999 mls/hr IV. 1440: I reevaluated the patient. Her heart rate is 101 and her blood pressure is 118/51. 1525: Zosyn IV 4.5gm IV. 1541: Levofloxacin ml @ 100mls/hr IV. 1543: I spoke with Yessica Rodas PA-C of [employer]. We discussed the patient and her results. The patient will be further evaluated by Yessica Rodas. 1547: Sodium Chloride 500 ml @ 999 mls/hr IV. 1604: The patient is with the [facility] and will be evaluated for further management by [facility]. 1610: I spoke with Dr. Allen of [facility]. We discussed the patient and her results. The patient will be further evaluated by Dr. Allen. Medical Decision This is a 76-year-old female who presents with generalized weakness and body aches. Differential diagnosis includes sepsis, SIRS, UTI, pneumonia, metabolic derangement, influenza. I did perform a limited focused review of portions of the patient's old chart on the electronic medical record. The patient was here in October for SIRS from a UTI. I did evaluate the patient as noted above. IV access was established. The patient was placed on a continuous rn cardiac. I did treat patient with normal saline IV. She was given a half liter and her blood pressure did go up to 118/51. I did order and personally review the patient's 12-lead EKG and chest x-ray as described above. Her chest x-ray demonstrates a pneumonia. I did order and review the patient's blood work as noted in the electronic medical record. She has an elevated white blood cell count and her lactic acid is 5. Urinalysis shows infection. I did treat her with Zosyn and Levaquin IV. I did reassess the patient. She continues to feel body aches and her pressure did drop slightly and she was given additional IV fluids. I did discuss the case with the hospitalist and case preparer and liner. She was admitted to the hospital. Consults Time Called: 1540 Consulting Physician: Yessica Leong Returned Call: 1543 I spoke with Yessica Rodas PA-C of [employer]. We discussed the patient and her results. The patient will be further evaluated by Yessica Rodas. Additional Consults: Time Called: 1608 Consulted Physician: Dr. Allen - [facility] Returned Call: 1610 Additional Comments: 1610: I spoke with Dr. Allen of [facility]. We discussed the patient and her results. The patient will be further evaluated by Dr. Allen. Impression Primary Impression: Sepsis Additional Impressions: Pneumonia UTI (urinary tract infection) Atrial fibrillation Scribe Attestation The scribe's documentation has been prepared under my direct and personally reviewed by me in its entirety. I confirm that the note above accurately reflects all work, treatment, procedures, and medical decision making performed by me. Departure Information Dispostion Being Evaluated By Hospitalist Referrals Kojo Cohen MD (PCP) Patient Instructions My [facility] Problem Qualifiers Primary Impression: Sepsis Sepsis type: sepsis due to unspecified organism Qualified Codes: A41.9 - Sepsis, unspecified organism Additional Impressions: Pneumonia Pneumonia type: due to unspecified organism Laterality: left Lung location : lower lobe of lung Qualified Codes: J18.1 - Lobar pneumonia, unspecified organism UTI (urinary tract infection) Urinary tract infection type: acute cystitis Atrial fibrillation Atrial fibrillation type: chronic Qualified Codes: I48.2 - Chronic atrial fibrillation
[2017-02-20] MEDS ORDERED: THIAMINE HCL 100 MG/ML 2 ML VIAL IV STA (18:59)
[2017-02-20] MEDS ORDERED: METOCLOPRAMIDE HCL INJ 5 MG/ML 2 ML VIAL IM STA (19:39)
[2017-02-20] MEDS ORDERED: METOCLOPRAMIDE HCL INJ 5 MG/ML 2 ML VIAL ONE (19:41)
[2017-02-20] MEDS ORDERED: VANCOMYCIN INJ 1,900 MG in SODIUM CHLORIDE 0.9% 500ML 500 ML IV ONE (20:00)
[2017-02-20] MEDS ORDERED: THIAMINE HCL INJ 100 MG in SYRINGE 9 ML IV ONE (20:00)
--- NOTE | 2017-02-20 20:53 | DIAGNOSTIC IMAGING REPORT ---
CT HEAD WITHOUT CONTRAST (CT) CLINICAL HISTORY: Head pain status post trauma COMPARISON STUDY: 09/04/2016 TECHNIQUE: Axial CT of the brain is performed from the vertex to the skull base. IV contrast was not administered for this examination. CT DOSE: FINDINGS: No intra or extra-axial mass lesions are visualized. There is no CT evidence of acute cortical infarction. There is no evidence of midline shift. There is no acute hemorrhage. No calvarial fractures are visualized. There are patchy white matter hypodensities likely on a small vessel basis. There is no evidence of pathologic ventricular dilatation. There is no evidence of acute sinusitis IMPRESSION: No acute intracranial findings Electronically signed by: Dwight Magana M.D. 02/20/2017 8:52 PM Dictated Date/Time: 02/20/2017 8:51 PM
--- NOTE | 2017-02-20 20:56 | DIAGNOSTIC IMAGING REPORT ---
CT OF THE CERVICAL SPINE CLINICAL HISTORY: Neck pain status post trauma. COMPARISON STUDY: 09/04/2016 CT DOSE: TECHNIQUE: CT scan of the cervical spine was performed from the skull base to the thoracic inlet. Images are reviewed in the axial, sagittal, and coronal planes. IV contrast was not administered for this examination. FINDINGS: The visualized portions of the lung apices reveal no evidence of pneumothorax. The prevertebral soft tissues are normal. No fractures or subluxations are visualized. There are mild multilevel degenerative changes. There is fluid within a single right sided mastoid air cell IMPRESSION: No evidence of acute fracture or traumatic subluxation. Electronically signed by: Dwight Magana M.D. 02/20/2017 8:55 PM Dictated Date/Time: 02/20/2017 8:52 PM
[2017-02-20] MEDS ORDERED: CARBIDOPA PO SCH (21:00)
[2017-02-20] MEDS ORDERED: LEVODOPA PO SCH (21:00)
[2017-02-20] MEDS ORDERED: [UNRECOGNIZED DRUG - OTHER] PO SCH (21:00)
[2017-02-20] MEDS ORDERED: ENTACAPONE PO SCH (21:00)
--- NOTE | 2017-02-20 21:01 | DIAGNOSTIC IMAGING REPORT ---
CT OF THE CHEST WITHOUT IV CONTRAST CLINICAL HISTORY: Hypoxia. Trauma. COMPARISON STUDY: Chest x-ray dated 02/20/2017 CT DOSE: TECHNIQUE: CT of the thorax was performed from the thoracic inlet to the lung bases. Images are reviewed in the axial, sagittal, and coronal planes. IV contrast was not administered for this examination. FINDINGS: Thyroid: Imaged portions of the thyroid gland are normal in appearance. Thoracic aorta: There is mild ectasia of the a sitting thoracic aorta which measures 4 cm. Heart: The heart is borderline enlarged. There is no significant pericardial effusion Lungs and pleural spaces: Evaluation the lung parenchyma is limited due to respiratory motion artifact. There are left basilar opacities likely atelectatic although an inflammatory process could appear similar. There is a trace left pleural effusion Mediastinum: There is no evidence of pathologic mediastinal adenopathy. Lorie: There is no evidence of hilar adenopathy given the limitations of a noncontrast study Axilla: There is no evidence of axillary lymphadenopathy Upper abdomen: Partially visualized upper abdominal viscera is within normal limits. Skeletal structures: There are no lytic or blastic osseous lesions. There are old bilateral rib fractures. IMPRESSION: 1. Technically limited study secondary to respiratory motion artifact 2. Left lower lobe airspace opacities. Atelectasis is favored over a pneumonia. Clinical correlation is advocated 3. Old bilateral rib fractures. 4. No evidence of pneumothorax Electronically signed by: Dwight Magana M.D. 02/20/2017 8:59 PM Dictated Date/Time: 02/20/2017 8:55 PM
[2017-02-20] MEDS: TRAMADOL HCL 50 MG TAB PO PRN (21:06)
--- NOTE | 2017-02-20 21:06 | DIAGNOSTIC IMAGING REPORT ---
CT SCAN OF THE ABDOMEN AND PELVIS WITHOUT CONTRAST CLINICAL HISTORY: Fever, sepsis, abdominal pain. COMPARISON STUDY: No previous studies for comparison. TECHNIQUE: CT scan of the abdomen and pelvis was performed from the lung bases to the proximal femurs. Images are reviewed in the axial, sagittal, and coronal planes. IV contrast was not administered for this examination. CT DOSE: 3213.03 mGy.cm FINDINGS: Lower chest: There is a trace left pleural effusion. There are left basal airspace opacities, likely atelectatic. An inflammatory process could appear similar and clinical correlation is advocated Liver: The unenhanced liver is normal in size, contour, and attenuation. There is no intrahepatic biliary ductal dilatation. Gallbladder: Unremarkable. Spleen: Normal in size and attenuation. Pancreas: Unremarkable. Adrenal glands: Unremarkable. Kidneys: The unenhanced kidneys are normal in size without hydronephrosis. There is no contour deforming renal mass lesion. No renal calculi are identified. Bowel: There are no transition zones indicate bowel obstruction. There are few scattered colonic diverticula. There are no acute peridiverticular inflammatory changes. The appendix is not visualized with certainty. There are no findings to indicate acute appendicitis. There is borderline rectal wall thickening. This may be secondary to a nondistended segment Peritoneum: There is no intraperitoneal free air or abdominal ascites. Vasculature: The abdominal aorta is normal in course and caliber. Adenopathy: There are borderline enlarged external iliac and inguinal lymph nodes. Pelvic viscera: There is an indwelling Das catheter. Skeletal structures: No destructive osseous lesions are seen. IMPRESSION: 1. Study limited due to the lack of intravenous and oral contrast as well as motion artifact 2. No evidence of bowel obstruction. No evidence of free air 3. No renal, ureteral, or bladder calculi identified 4. Borderline rectal wall thickening, a finding which is possibly secondary to a nondistended segment 5. No evidence of acute diverticulitis 6. Borderline enlarged external iliac and inguinal lymph nodes. Electronically signed by: Dwight Magana M.D. 02/20/2017 9:05 PM Dictated Date/Time: 02/20/2017 8:59 PM
--- NOTE | 2017-02-20 21:37 | DIAGNOSTIC IMAGING REPORT ---
ULTRASOUND VENOUS DOPPLER LWR EXT BILA CLINICAL HISTORY: Bilateral leg swelling COMPARISON STUDY: No previous studies for comparison. FINDINGS: Real-time and color flow Doppler imaging were performed. Flow was seen within the femoral, popliteal and calf veins with no intraluminal thrombus demonstrated. The saphenous vein is patent. IMPRESSION: No evidence of lower extremity DVT. Electronically signed by: Dwight Magana M.D. 02/20/2017 9:36 PM Dictated Date/Time: 02/20/2017 9:36 PM
[2017-02-20] MEDS: SODIUM CHLORIDE 0.9% 1000ML 1,000 ML IV SCH (21:40)
--- NOTE | 2017-02-20 21:41 | Critical Care Consultation ---
Critical Care Consultation Date of Consultation: February 20, 2017. Attending Physician: Dean Siegel M.D. Reason for Consultation: "Inability to move" History of Present Illness Stephie Nicole is a 76 yr old female with Parkinson who states she was unable to move and felt generalized weakness. She was brought to the [facility] ED via EMS where she was 98/52 and received received 1L of NSS, Zosyn and Levaquin. Her blood pressure began to improve and was 118/51. A CXR demonstrated suspicion of possible LLL PNA. She had been diagnosed with a UTI the day prior to admission and started on Bactrim BID. Her urinalysis is negative for bacteria and nitrates; while positive for leukocyte esterase and trace ketones. Upon examining her in the ICU, she is nauseous and vomiting minimal clear secretions. She appears to be in sinus tachycardia, however, the monitor is picking up on her Parkinson tremor and stating that she is in the mid 200's at time. Palpation of her pulse does not support the monitor and is regular. Pt is complaining of 6/10 mid- back pain located between the scapulas. She denies other recent illness, feelings of chills/fever, numbness/ tingling, chest pain/pressure, difficult breathing, or cough. She is not complaining of urinary symptoms but does wish to know when we will remove her urinary catheter. She is alert and oriented and answering all questions appropriately. She is showing no signs of focal neurological symptoms. She has a significant past history for falls; and she does have many contusions as well as open areas over her body. Patient did report a recent fall without LOC that caused the abrasions over her left knee, left shoulder, left jaw. She believed at home with a walker also has a scooter. She was last admitted here for a fall in October 2016. Past Medical/Surgical History Medical Problems: Ambulatory dysfunction Elevated troponin Gait disorder Hypotension (arterial) Rhabdomyolysis Sepsis Fall History Diabetes Mellitus Dementia Parkinson with Tremor HTN Family History No pertinent family history Noncontributory Social History Smoking Status: Current Some Day Smoker Drug Use: none Marital Status: Housing Status: lives with family Occupation Status: unemployed Allergies Coded Allergies: No Known Allergies (Unverified , 02/20/17) Home Medications Scheduled Aspirin (Aspirin Ec), 81 MG PO DAILY Azathioprine (Imuran), 50 MG PO DAILY Carbidopa/Levodopa/Entacapone 25/100/200MG (Stalevo 100), 2 TAB PO QID Cyanocobalamin (Cyanocobalamin), 1,000 MCG IM DIRECTED Insulin Aspart (Novolog Flexpen), 0 UNITS SC ACHS Metformin Hcl (Glucophage), 850 MG PO TIDM Multivitamins/Minerals (Mvi With Minerals), 1 TAB PO DAILY Pantoprazole (Protonix), 40 MG PO DAILY Sulfa/Trimethoprim (Bactrim Ds 800MG/160MG), 1 TAB PO BID Scheduled PRN Acetaminophen (Tylenol), 1,000 MG PO DIRECTED PRN for Pain Polyethylene (Miralax), 17 GM PO DAILY PRN for Constipation Tramadol HCl (Tramadol HCl), 50 MG PO Q6H PRN for Pain Current Inpatient Medications Current Inpatient Medications Medications (Trade) Dose Ordered Sig/Julián Route Start Time Stop Time Status Last Admin Dose Admin Sodium Chloride (Nss 1000ml) 1,000 ml @ 100 mls/hr Q10H IV 02/20/17 19:30 03/22/17 19:29 Acetaminophen (Tylenol Tab) 650 mg Q4H PRN PO 02/20/17 18:00 03/22/17 17:59 Zolpidem Tartrate 5 mg 5 mg HSZ PRN PO 02/20/17 18:00 03/22/17 17:59 Levofloxacin/Prmx (Levaquin / D5W/ Premixed D5W) 100 ml @ 100 mls/hr Q24H IV 02/21/17 18:00 02/25/17 23:59 Aspirin (Ecotrin Tab) 81 mg DAILY PO 02/21/17 09:00 03/23/17 08:59 Azathioprine (Imuran Tab) 50 mg DAILY PO 02/21/17 09:00 03/23/17 08:59 Insulin Aspart (novoLOG ASPART) ACHS SC 02/20/17 21:00 03/22/17 20:59 Metformin HCl (Glucophage Tab) 850 mg TIDM PO 02/21/17 07:15 03/23/17 07:59 Future Hold Multivitamins/ Minerals (Multivitamin W/ Minerals Tab) 1 tab DAILY PO 02/21/17 09:00 03/23/17 08:59 Pantoprazole Sodium (Protonix Tab) 40 mg DAILY PO 02/21/17 09:00 03/23/17 08:59 Polyethylene (Miralax Powder Packet) 17 gm DAILY PRN PO 02/20/17 18:15 03/22/17 18:14 Tramadol HCl 50 mg 50 mg Q6H PRN PO 02/20/17 18:15 03/22/17 18:14 02/20/17 21:06 50 MG Vancomycin HCl/ Sodium Chloride (Vancomycin Inj/ Nss 500ml) 538 ml @ 200 mls/hr TODAY@2000 ONCE IV 02/20/17 20:00 02/20/17 22:41 Carbidopa/Levodopa (Sinemet 25/ 100MG Tab) 2 tab QID PO 02/20/17 21:00 03/22/17 20:59 Entacapone 400 mg 400 mg QID PO 02/20/17 21:00 03/22/17 20:59 Ceftriaxone Sodium/Dextrose (Rocephin Inj/ Dextrose Add-[place] 50ML) 50 ml @ 100 mls/hr DAILY@2200 IV 02/20/17 22:00 02/27/17 21:59 Review of Systems 12 systems reviewed and negative other than previously mentioned in the HPI. Physical Exam Date Time Temp Pulse Resp B/P Pulse Ox O2 Delivery O2 Flow Rate FiO2 02/20/17 18:55 36.8 105 20 97/60 96 Room Air 02/20/17 18:13 120 18 107/44 95 Room Air 02/20/17 17:35 121 22 93/54 96 Room Air 02/20/17 15:41 118 24 99/64 96 Room Air 02/20/17 14:13 37.2 120 26 98/52 96 Room Air 02/20/17 14:13 96 Room Air Vital Signs - as noted Laboratory Data - as noted Physical Exam: General - NAD, Obese female with flat affect sitting in bed. Eyes - PERRL, EOMI No icterus, gaze conjugate ENT - Mucosa moist, upper dentures in place, no lesions or candidiasis Neck - Healing bruise to left jaw/neck, Supple, trachea midline, no masses or lymphadenopathy, no JVD or bruits Lungs - No paradoxical chest wall movement, coarse to auscultation bilaterally; rales noted in bases L > R, no wheezes or rhonchi Heart - Sinus Tachycardia, No murmur, rubs, clicks, or gallops appreciated Abdomen - BS present, no bruits noted, tympanic to percussion, soft, obese, nontender, nondistended, no organomegaly Extremities - appearance of cellulitis, with warmth and light redness throughout bilateral extremities, Min edema, pedal pulses intact, multiple open sores, bruises over all four extremities and open areas down the spinal section of the back Neuro - A&OX 4 Strength extremities equal and appropriate bilaterally Reflexes: normal and equal CN:PERRL, EOMI, no facial asymmetry, uvula/tongue midline Laboratory Results Last 24 Hours Test 02/20/17 14:45 02/20/17 14:52 02/20/17 15:15 02/20/17 15:24 Urine Color DK YELLOW Urine Appearance CLOUDY Urine pH 5.5 Urine Specific Regent 1.016 Urine Protein NEG Urine Glucose (UA) NEG Urine Ketones TRACE Urine Occult Blood NEG Urine Nitrite NEG Urine Bilirubin NEG Urine Urobilinogen NEG Urine Leukocyte Esterase LARGE Urine WBC (Auto) >30 /hpf Urine RBC (Auto) 0-4 /hpf Urine Hyaline Casts (Auto) 1-5 /lpf Urine Epithelial Cells (Auto) 10-20 /lpf Urine Bacteria (Auto) NEG Urine Pathogenic Casts 0-3 GRANULAR CASTS /lpf Influenza Type A Antigen Neg for Influ A Influenza Type B Antigen Neg for Influ B White Blood Count 16.46 K/uL Red Blood Count 4.40 M/uL Hemoglobin 12.4 g/dL Hematocrit 38.9 % Mean Corpuscular Volume 88.4 fL Mean Corpuscular Hemoglobin 28.2 pg Mean Corpuscular Hemoglobin Concent 31.9 g/dl Platelet Count 343 K/uL Mean Platelet Volume 10.1 fL Neutrophils (%) (Auto) 91.2 % Lymphocytes (%) (Auto) 3.3 % Monocytes (%) (Auto) 3.2 % Eosinophils (%) (Auto) 1.9 % Basophils (%) (Auto) 0.1 % Neutrophils # (Auto) 15.02 K/uL Lymphocytes # (Auto) 0.55 K/uL Monocytes # (Auto) 0.52 K/uL Eosinophils # (Auto) 0.31 K/uL Basophils # (Auto) 0.01 K/uL RDW Standard Deviation 49.1 fL RDW Coefficient of Variation 15.4 % Immature Granulocyte % (Auto) 0.3 % Immature Granulocyte # (Auto) 0.05 K/uL Prothrombin Time 12.4 SECONDS Prothromb Time International Ratio 1.2 Activated Partial Thromboplast Time 29.7 SECONDS Partial Thromboplastin Ratio 1.1 Sodium Level 136 mmol/L Potassium Level 4.2 mmol/L Chloride Level 101 mmol/L Carbon Dioxide Level 25 mmol/L Anion Gap 10.0 mmol/L Blood Urea Nitrogen 26 mg/dl Creatinine 1.30 mg/dl Est Creatinine Clear Calc Drug Dose 44.5 ml/min Estimated GFR () 45.8 Estimated GFR (Non- 39.5 BUN/Creatinine Ratio 19.8 Random Glucose 114 mg/dl Calcium Level 9.3 mg/dl Total Bilirubin 0.5 mg/dl Aspartate Amino Transf (AST/SGOT) 10 U/L Alanine Aminotransferase (ALT/SGPT) 15 U/L Alkaline Phosphatase 81 U/L Troponin I < 0.015 ng/ml Total Protein 7.2 gm/dl Albumin 3.4 gm/dl Globulin 3.8 gm/dl Albumin/Globulin Ratio 0.9 Procalcitonin 0.92 ng/ml Thyroid Stimulating Hormone (TSH) 2.360 uIu/ml Bedside Lactic Acid Venous 5.14 mmol/L Test 02/20/17 18:00 02/20/17 20:14 Lactic Acid Level 4.8 mmol/L Troponin I 0.017 ng/ml Lipase 41 U/L Random Cortisol 59.13 mcg/dl Diagnostic Results CHEST ONE VIEW PORTABLE CLINICAL HISTORY: Sepsis dyspnea COMPARISON STUDY: 10/24/2016 FINDINGS: Parenchymal infiltrate left base. No regions of significant consolidative change. Mild prominence of pulmonary vasculature. Right lung is clear. IMPRESSION: Infiltrate left base. Electronically signed by: Lewis Wilcox M.D. 02/20/2017 3:03 PM Dictated Date/Time: 02/20/2017 3:02 PM ULTRASOUND VENOUS DOPPLER LWR EXT BILA CLINICAL HISTORY: Bilateral leg swelling COMPARISON STUDY: No previous studies for comparison. FINDINGS: Real-time and color flow Doppler imaging were performed. Flow was seen within the femoral, popliteal and calf veins with no intraluminal thrombus demonstrated. The saphenous vein is patent. IMPRESSION: No evidence of lower extremity DVT. Electronically signed by: Dwight Magana M.D. 02/20/2017 9:36 PM Dictated Date/Time: 02/20/2017 9:[address] HEAD WITHOUT CONTRAST (CT) CLINICAL HISTORY: Head pain status post trauma COMPARISON STUDY: 09/04/2016 TECHNIQUE: Axial CT of the brain is performed from the vertex to the skull base. IV contrast was not administered for this examination. CT DOSE: FINDINGS: No intra or extra-axial mass lesions are visualized. There is no CT evidence of acute cortical infarction. There is no evidence of midline shift. There is no acute hemorrhage. No calvarial fractures are visualized. There are patchy white matter hypodensities likely on a small vessel basis. There is no evidence of pathologic ventricular dilatation. There is no evidence of acute sinusitis IMPRESSION: No acute intracranial findings Electronically signed by: Dwight Magana M.D. 02/20/2017 8:52 PM Dictated Date/Time: 02/20/2017 8:[address] OF THE CHEST WITHOUT IV CONTRAST CLINICAL HISTORY: Hypoxia. Trauma. COMPARISON STUDY: Chest x-ray dated 02/20/2017 CT DOSE: TECHNIQUE: CT of the thorax was performed from the thoracic inlet to the lung bases. Images are reviewed in the axial, sagittal, and coronal planes. IV contrast was not administered for this examination. FINDINGS: Thyroid: Imaged portions of the thyroid gland are normal in appearance. Thoracic aorta: There is mild ectasia of the a sitting thoracic aorta which measures 4 cm. Heart: The heart is borderline enlarged. There is no significant pericardial effusion Lungs and pleural spaces: Evaluation the lung parenchyma is limited due to respiratory motion artifact. There are left basilar opacities likely atelectatic although an inflammatory process could appear similar. There is a trace left pleural effusion Mediastinum: There is no evidence of pathologic mediastinal adenopathy. Lorie: There is no evidence of hilar adenopathy given the limitations of a noncontrast study Axilla: There is no evidence of axillary lymphadenopathy Upper abdomen: Partially visualized upper abdominal viscera is within normal limits. Skeletal structures: There are no lytic or blastic osseous lesions. There are old bilateral rib fractures. IMPRESSION: 1. Technically limited study secondary to respiratory motion artifact 2. Left lower lobe airspace opacities. Atelectasis is favored over a pneumonia. Clinical correlation is advocated 3. Old bilateral rib fractures. 4. No evidence of pneumothorax Electronically signed by: Dwight Magana M.D. 02/20/2017 8:59 PM Dictated Date/Time: 02/20/2017 8:[address] OF THE CERVICAL SPINE CLINICAL HISTORY: Neck pain status post trauma. COMPARISON STUDY: 09/04/2016 CT DOSE: TECHNIQUE: CT scan of the cervical spine was performed from the skull base to the thoracic inlet. Images are reviewed in the axial, sagittal, and coronal planes. IV contrast was not administered for this examination. FINDINGS: The visualized portions of the lung apices reveal no evidence of pneumothorax. The prevertebral soft tissues are normal. No fractures or subluxations are visualized. There are mild multilevel degenerative changes. There is fluid within a single right sided mastoid air cell IMPRESSION: No evidence of acute fracture or traumatic subluxation. Electronically signed by: Dwight Magana M.D. 02/20/2017 8:55 PM Dictated Date/Time: 02/20/2017 8:[address] SCAN OF THE ABDOMEN AND PELVIS WITHOUT CONTRAST CLINICAL HISTORY: Fever, sepsis, abdominal pain. COMPARISON STUDY: No previous studies for comparison. TECHNIQUE: CT scan of the abdomen and pelvis was performed from the lung bases to the proximal femurs. Images are reviewed in the axial, sagittal, and coronal planes. IV contrast was not administered for this examination. CT DOSE: 3213.03 mGy.cm FINDINGS: Lower chest: There is a trace left pleural effusion. There are left basal airspace opacities, likely atelectatic. An inflammatory process could appear similar and clinical correlation is advocated Liver: The unenhanced liver is normal in size, contour, and attenuation. There is no intrahepatic biliary ductal dilatation. Gallbladder: Unremarkable. Spleen: Normal in size and attenuation. Pancreas: Unremarkable. Adrenal glands: Unremarkable. Kidneys: The unenhanced kidneys are normal in size without hydronephrosis. There is no contour deforming renal mass lesion. No renal calculi are identified. Bowel: There are no transition zones indicate bowel obstruction. There are few scattered colonic diverticula. There are no acute peridiverticular inflammatory changes. The appendix is not visualized with certainty. There are no findings to indicate acute appendicitis. There is borderline rectal wall thickening. This may be secondary to a nondistended segment Peritoneum: There is no intraperitoneal free air or abdominal ascites. Vasculature: The abdominal aorta is normal in course and caliber. Adenopathy: There are borderline enlarged external iliac and inguinal lymph nodes. Pelvic viscera: There is an indwelling Das catheter. Skeletal structures: No destructive osseous lesions are seen. IMPRESSION: 1. Study limited due to the lack of intravenous and oral contrast as well as motion artifact 2. No evidence of bowel obstruction. No evidence of free air 3. No renal, ureteral, or bladder calculi identified 4. Borderline rectal wall thickening, a finding which is possibly secondary to a nondistended segment 5. No evidence of acute diverticulitis 6. Borderline enlarged external iliac and inguinal lymph nodes. Electronically signed by: Dwight Magana M.D. 02/20/2017 9:05 PM Dictated Date/Time: 02/20/2017 8:59 PM Assessment & Plan (1) SIRS (systemic inflammatory response syndrome) (2) Lactic acidosis (3) Parkinson disease (4) Leukocytosis (5) Diabetes (6) UTI (urinary tract infection) (7) Pneumonia (8) Ambulatory dysfunction (9) Hypertension (10) Bilateral leg weakness (11) Prolonged Q-T interval on ECG (12) Abrasion (13) At high risk for falls (14) Elevated troponin Neuro: * Known Dementia/Parkinson's * Continue home medication * Consider neuro follow-up: Seen by Dr. Benavidez in the past * Pt reports chronic pain with used of Tylenol or Tramadol at home * Both available for pain control this admission * CT head, thorax, abd, pelvis rule out major fracture/bleeding as cause of mental status changes * Pt alert and oriented during examination in ICU I.D: * Patient meets SIRS criteria with sinus tachycardia and leukocytosis * Mildly elevated lactic acid in the setting of negative procalcitonin * CXR demonstrated changed to Left Lower Base, CT favored small pleural effusion with atelectasis * Urinalysis: without all infectious markers. Known recent dx of UTI with Bactrim treatment * Blood Cultures including Fungal: Pending * Trend Lactic Acid, continue fluid resuscitation. * Follow Daily CBC Pulm: * Continue current broad spectrum antibiotic, preliminarily * Pt received Levaquin, Zosyn, and Vanco * Continue on Rocephin & Levaquin * Monitor QTc: 479 on most recent EKG * Nursing noted aspiration with evening medications * Repeat CXR in AM * Obtain Speech Eval * Supplemental O2 as needed * Monitor on telemetry Cardiac: * Sinus Tachycardia, improved with fluid resuscitation. * Prolonged QTc: Monitor * Minimally Elevated Troponin: Trend; likely secondary to demand ischemia in the setting of tachycardia * EKG without concerns for KS * Known history of hypertension, continue to monitor BP, mild hypotension in ED * Continue IV Fluids * Monitor on telemetry Renal/Electrolytes: * LIONEL noted: Cr 1.3; Baseline 0.7 * Continue Fluids * Avoid nephrotoxic agents * Electrolytes WNL: Monitor and Replete as indicated. * Das to Regent in place * Monitor I &O's * Monitor Daily Labs Endocrine: * Non-Insulin Dependent Diabetes Mellitus Type 2 * Hold home Metformin * SSI in place if indicated * A1C 10/25/16: 7.0 * TSH: 2.36 GI: * NPO pending speech eval currently * Nursing noted pt aspirating with oral medications * Pt states this happens at home as well * Monitor bowel habits * GI Prophylaxis: Protonix in place; Pt currently NPO Heme: * H&H WNL * PT: 12.4; INR 1.2, aPTT: 29.7 * Follow daily Labs * DVT Prophylaxis versus increased fall risk: Increased risk due to limited mobility, obesity, and age for DVT with known prior/recent falls. Bilateral Doppler demonstrate no current DVT MSK/Skin: * Obtain PT/OT * Consult Wound care for contusion and open sores over body. * Possible red rash of lower extremities secondary to Bactrim use. Access: [address], Obtain 2nd IV site CCT: 60 minutes; Not including any billable procedures. Thank you for including us in the care of this patient. Please review Dr. Major Cronin's addendum for further recommendations. I have personally evaluated and examined this patient. I agree with assessment and plan of Forrest Bell PA-C. Patient at risk for aspiration pneumonia, urinary tract infection, concern for sepsis given elevated lactate. Patient received broad-spectrum antibiotics and emergency department, as this appears to be a community-acquired infection we will de-escalate from vancomycin and Zosyn and ceftriaxone and Levaquin to avoid vancomycin and Zosyn interactions in the setting of having a pre-existing UTI. She does not have prolonged QTC which precludes the use of Levaquin at this point. Prefer to use Levaquin and a beta lactam for his synergism against strep pneumonia. Problem Qualifiers (1) UTI (urinary tract infection): Urinary tract infection type: acute cystitis (2) Pneumonia: Pneumonia type: due to unspecified organism Laterality: left Lung location: lower lobe of lung Qualified Codes: J18.1 - Lobar pneumonia, unspecified organism
[2017-02-20] MEDS: ENTACAPONE 200 MG TAB PO SCH (21:44)
[2017-02-20] MEDS: CARBIDOPA/LEVODOPA 25/100MG TAB PO SCH (21:45)
[2017-02-20] MEDS: INSULIN ASPART 100 UNITS/ML 3 ML PEN SC SCH (21:48)
[2017-02-20] MEDS: CEFTRIAXONE SOD INJ 1 GM in DEXTROSE 5% ADD-VANTAGE 50ML 50 ML IV SCH (21:49)
[2017-02-21] VITALS (29 sets, daily range): BP systolic 94–132; BP diastolic 43–76; PULSE 91–162; TEMP 36.6–37.1; O2SAT 78–100
[2017-02-21] MEDS ORDERED: FENTANYL CITRATE INJ 50 MCG/1 ML 2 ML VIAL IV PRN (01:45)
[2017-02-21 03:49] LABS: BASO % 0.1 %; BASO ABS # 0.01 K/uL (0-0.2); COMPLETE YES; HEMATOCRIT 32.7 % (37-47); IG% 0.3 %; LYMPH % 3.5 %; LYMPH ABS # 0.52 K/uL (1.2-3.4); MEAN CELL VOLUME 87.9 fL (80-100); MEAN CORPUSCULAR HEMOGLOBIN 29.3 pg (25-34); MEAN CORPUSCULAR HGB CONC 33.3 g/dl (32-36); MEAN PLATELET VOLUME 9.5 fL (7.4-10.4); MONO % 3.2 %; NEUT % 87.9 %; PLATELET COUNT 279 K/uL (130-400); RED BLOOD COUNT 3.72 M/uL (4.2-5.4); WHITE BLOOD COUNT 14.65 K/uL (4.8-10.8)
[2017-02-21 04:08] LABS: CALCIUM 8.5 mg/dl (8.5-10.1); CREATININE 1.2 mg/dl (0.60-1.20); MAGNESIUM 1.4 mg/dl (1.8-2.4); POTASSIUM 4.3 mmol/L (3.5-5.1)
[2017-02-21 04:13] LABS: ALB/GLOB RATIO 0.9 (0.9-2); PHOSPHORUS 3.5 mg/dl (2.5-4.9)
[2017-02-21] MEDS ORDERED: MAGNESIUM SULFATE 1GM / D5W 1 GM in PREMIXED IN D5W 100 ML IV STA (04:23)
[2017-02-21] MEDS: FENTANYL CITRATE INJ 50 MCG/1 ML 2 ML VIAL IV PRN ×2 (04:27→08:19)
[2017-02-21] MEDS: INSULIN ASPART 100 UNITS/ML 3 ML PEN SC SCH ×4 (06:11→20:40)
[2017-02-21] MEDS ORDERED: METFORMIN HCL 850 MG TAB PO SCH (07:15)
[2017-02-21] MEDS: ENOXAPARIN 30 MG/0.3 ML SYR SQ SCH ×2 (08:10→20:39)
[2017-02-21] MEDS: CARBIDOPA/LEVODOPA 25/100MG TAB PO SCH (08:14)
[2017-02-21] MEDS: ENTACAPONE 200 MG TAB PO SCH ×5 (08:14→22:02)
[2017-02-21] MEDS: AZATHIOPRINE 50 MG TAB PO SCH (08:15)
--- NOTE | 2017-02-21 08:31 | DIAGNOSTIC IMAGING REPORT ---
CHEST ONE VIEW PORTABLE CLINICAL HISTORY: Aspiration over night COMPARISON STUDY: Chest radiograph and chest CT February 20, 2017. FINDINGS: Lung volumes are normal. There is no pneumothorax or pleural effusion. There is no evidence of pulmonary edema. Cardiomegaly is unchanged. Mild left basilar opacity persists. IMPRESSION: 1. No change in mild left basilar opacity. Atelectasis is favored although pneumonia would be difficult to exclude. 2. Moderate cardiomegaly without evidence of pulmonary edema. Electronically signed by: Cyril Ortega M.D. 02/21/2017 8:30 AM Dictated Date/Time: 02/21/2017 8:29 AM
--- NOTE | 2017-02-21 08:45 | Clinical Documentation Query ---
Dr. [facility] : CLINICAL DOCUMENTATION QUERY Patient is a 76 year old female admitted for evaluation and treatment of an altered mental status in the setting of a UTI. Admission data included leukocytosis (16.46), tachycardia (120), tachypnea (26), hypotension (98/52) and lactic acidemia (5.14). MRSA nares swab positive. Chest radiograph demonstrated a left basilar infiltrate. Permit Specialist/ED documentation included pneumonia, not otherwise specified. ED provider documentation included sepsis. This documentation has not been continued. Permit Specialist finance consultant documented "SIRS". This is no longer equivalent to sepsis (when there is a documented infection) as it was in ICD-9. Patient has been treated with IVF boluses, IV antibiotics (including Vancomycin), has been admitted to ICU. Please clarify as clinically able and appropriate. Thank you. In your clinical opinion is this patient being managed for: ( ) Sepsis due to (MRSA?) pneumonia (x ) Other explanation of clinical findings (Please Explain) ( ) Unable to determine (Please Define) ( ) Need to Discuss ( ) Not Agree The medical record reflects the following clinical findings, treatment, and risk factors. Clinical Indicators:Admission data included leukocytosis (16.46), tachycardia (120), tachypnea (26), hypotension (98/52) and lactic acidemia (5.14). MRSA nares swab positive. Chest radiograph demonstrated a left basilar infiltrate. Permit Specialist/ED documentation included pneumonia, not otherwise specified. ED provider documentation included sepsis. This documentation has not been continued. Permit Specialist finance consultant documented "SIRS". Treatment: Patient has been treated with IVF boluses, IV antibiotics (including Vancomycin), has been admitted to ICU Risk Factors: Age, infection Please clarify and document your clinical opinion in the progress notes and discharge summary. Terms such as "probable", "suspected", "likely", "questionable", "possible", or "still to be ruled out" are acceptable. IF IN AGREEMENT, YOU MUST DOCUMENT ABOVE DIAGNOSTIC STATEMENT IN DAILY PROGRESS NOTES AND DISCHARGE SUMMARY. This document is not part of the patient's record. Thank You, Major Corbin, RN [phone]
--- NOTE | 2017-02-21 08:46 | Clinical Documentation Query ---
ANGIE Granda : CLINICAL DOCUMENTATION QUERY Patient is a 76 year old female admitted for evaluation and treatment of an altered mental status in the setting of a UTI. Admission data included leukocytosis (16.46), tachycardia (120), tachypnea (26), hypotension (98/52) and lactic acidemia (5.14). MRSA nares swab positive. Chest radiograph demonstrated a left basilar infiltrate. Manager Equipment/ED documentation included pneumonia, not otherwise specified. ED provider documentation included sepsis. This documentation has not been continued. Manager Equipment program consultant documented "SIRS". This is no longer equivalent to sepsis despite a documented infection as it was in ICD-9. Patient has been treated with IVF boluses, IV antibiotics (including Vancomycin), has been admitted to ICU. Please clarify as clinically able and appropriate. Thank you. In your clinical opinion is this patient being managed for: ( ) Sepsis due to (possible/suspected)(MRSA?) pneumonia and UTI ( ) Other explanation of clinical findings (Please Explain) (X ) Unable to determine (Please Define) still to be ruled out ( ) Need to Discuss ( ) Not Agree The medical record reflects the following clinical findings, treatment, and risk factors. Clinical Indicators:Admission data included leukocytosis (16.46), tachycardia (120), tachypnea (26), hypotension (98/52) and lactic acidemia (5.14). MRSA nares swab positive. Chest radiograph demonstrated a left basilar infiltrate. Manager Equipment/ED documentation included pneumonia, not otherwise specified. ED provider documentation included sepsis. This documentation has not been continued. Manager Equipment program consultant documented "SIRS". Treatment: Patient has been treated with IVF boluses, IV antibiotics (including Vancomycin), has been admitted to ICU Risk Factors: Age, infection Please clarify and document your clinical opinion in the progress notes and discharge summary. Terms such as "probable", "suspected", "likely", "questionable", "possible", or "still to be ruled out" are acceptable. IF IN AGREEMENT, YOU MUST DOCUMENT ABOVE DIAGNOSTIC STATEMENT IN DAILY PROGRESS NOTES AND DISCHARGE SUMMARY. This document is not part of the patient's record. Thank You, Angie Corbin, EDILBERTO [phone]
[2017-02-21] MEDS ORDERED: ASPIRIN 81 MG ECTAB PO SCH (09:00)
[2017-02-21] MEDS ORDERED: PANTOprazole SOD 40 MG TAB PO SCH (09:00)
[2017-02-21] MEDS ORDERED: CEROVITE ADV FORMULA TAB PO SCH (09:00)
--- NOTE | 2017-02-21 12:06 | Critical Care Progress Note ---
Critical Care Progress Note Date of Service February 21, 2017. ICU Day ICU Day Number: [address] Cronin Subjective Mrs Nicole is alert and oriented. She has undergone bedside speech evaluation this morning and did quite well requiring only pured food and thin liquids. She is in generally good spirits but is requested be out of bed. She denies any acute problems. She has no fever or chills. She denies headache. She is pleasant to speak to Objective Vital Signs - as noted below Laboratory Data - as noted below Physical Exam: General - NAD. Pleasant and in good spirits Eyes - No icterus, gaze conjugate ENT - Mucosa moist, no lesions or candidiasis Neck - Supple, No JVD Lungs - No bronchospasm, rales, or rhonchi. Heart - Regular, rate controlled Abdomen - Soft, NT, ND, BS present Extremities - +1 bilateral lower extremity edema, pedal pulses intact. Red Sox in place. Patient does have cogwheeling and ratcheting of both upper extremities as well as the feet and ankles on exam. Neuro - A&OX3 Current SOFA Score SOFA Score Response (Comments) Value PaO2/FiO2 (mmHg) < 100 4 SaO2 / FIO2 67 - 141 3 Platelets (x10) < 150 1 [place] Coma Score 15 0 Level of Hypotension No Hypotension 0 Creatinine (mg/dL) 1.2 - 1.9 1 Total 9 Previous SOFA Scores N/A Assessment & Plan (1) SIRS (systemic inflammatory response syndrome) Multiple bruises and open sores Mostly soft tissue and skin involvement Patient is afebrile White count yesterday 16.46 now trending down (14.65) Oxygenation adequate on room air Urine culture with no growth Screening by DNA probe positive for MRSA Blood cultures 2 are pending Fungal smear is pending Vancomycin and Zosyn discontinued secondary to acute kidney injury Change to Rocephin and Levaquin IV yesterday Pro calcitonin 0.91 (2) Lactic acidosis Peak to 4.8 10-2.1 today Continue IV fluids at 100 mL per hour Continue diet with thin liquids and pured food White count trending downward Afebrile Await all cultures Continue antibiotics as above (3) Parkinson disease Currently follows with Dr. Bakari Mane from [facility] Patient seen by Dr. Roger today who has seen the patient in the past Increase carbidopa/levodopa to 25/250, 1 tablet 4 times a day taken with entacapone 200 mg 4 times a day. Convert patient to Stalevo 150, 2 tablets 4 times a day on discharge. (4) Leukocytosis Blood cultures 2 are pending Positive for MRSA by DNA probe of the nares Urine culture is negative Patient changed to ceftriaxone and levofloxacin yesterday Continue to follow serial labs (5) Diabetes [id number] Metformin held on admission Random glucose 149 Consider sliding scale insulin once diet is advanced (6) UTI (urinary tract infection) Urine culture is negative Patient started on ceftriaxone and levofloxacin Continue to monitor (7) Pneumonia Vancomycin and Zosyn held secondary to acute kidney injury Continue ceftriaxone and levofloxacin Oxygenation adequate on room air Patient has no acute respiratory complaints (8) Ambulatory dysfunction Secondary to parkinsonism and generalized weakness Seen by neurology PT/OT evaluation and treatment Fall precautions May benefit from rehabilitation or usp care (9) Hypertension Hypotension on admission Systolic blood pressure now stable with adequate map Continue to monitor per protocol (10) Bilateral leg weakness Parkinson syndrome Medication adjustments per Dr. Roger's recommendation PT/OT Out of bed as tolerated Increase activity as tolerated (11) At high risk for falls PT/OT consults and treatment May benefit from rehabilitation or usp Continue fall precautions Secondary to Parkinson's GI PROPHYLAXIS Lansoprazole CARDIAC Patient of atrial fibrillation on initial EKG now replaced with junctional rhythm versus sinus tachycardia Minimal troponin leak on admission now resolved No chest pain or tightness No hypoxia Heart rate currently in the low 90s Hemodynamically stable Cardiology consulted DVT PROPHYLAXIS Enoxaparin DISPOSITION: Consider placement with rehabilitation Hospital or usp facility Consider palliative care consult NUTRITION History of penetration with no chau aspiration Repeat bedside swallow study today with no evidence of aspiration Thin liquids and pured diet as tolerated Supervised feedings LIONEL Baseline creatinine 0.7-0.8 Creatinine today 1.2 Continue IV fluids at 100 mL per hour until intake is adequate Follow serial labs CCT: 0 minutes. Level III inpatient bill\ I have personally evaluated and examined this patient. I agree with assessment and plan of Jose Johnson PA-C. improved from yesterday, reviewed speech therapy notes. Stable for downgrade from ICU. Consults & Procedures Consultants: Wound care Cardiology - Dr Selby Neurology - Dr. Roger Procedures: None Data Medications: Current Inpatient Medications Medications (Trade) Dose Ordered Sig/Julián Route Start Time Stop Time Status Last Admin Dose Admin Sodium Chloride (Nss 1000ml) 1,000 ml @ 100 mls/hr Q10H IV 02/20/17 19:30 03/22/17 19:29 02/20/17 21:40 100 MLS/HR Acetaminophen (Tylenol Tab) 650 mg Q4H PRN PO 02/20/17 18:00 03/22/17 17:59 Zolpidem Tartrate 5 mg 5 mg HSZ PRN PO 02/20/17 18:00 03/22/17 17:59 Levofloxacin/Prmx (Levaquin / D5W/ Premixed D5W) 100 ml @ 100 mls/hr Q24H IV 02/21/17 18:00 02/25/17 23:59 Azathioprine (Imuran Tab) 50 mg DAILY PO 02/21/17 09:00 03/23/17 08:59 02/21/17 08:15 50 MG Insulin Aspart (novoLOG ASPART) ACHS SC 02/20/17 21:00 03/22/17 20:59 Metformin HCl (Glucophage Tab) 850 mg TIDM PO 02/21/17 07:15 03/23/17 07:59 Future Hold Polyethylene (Miralax Powder Packet) 17 gm DAILY PRN PO 02/20/17 18:15 03/22/17 18:14 Tramadol HCl (Ultram Tab) 50 mg Q6H PRN PO 02/20/17 18:15 03/22/17 18:14 02/20/17 21:06 50 MG Carbidopa/Levodopa (Sinemet 25/ 100MG Tab) 2 tab QID PO 02/20/17 21:00 03/22/17 20:59 02/21/17 08:14 2 TAB Entacapone 400 mg 400 mg QID PO 02/20/17 21:00 03/22/17 20:59 02/20/17 21:44 400 MG Ceftriaxone Sodium/Dextrose (Rocephin Inj/ Dextrose Add-Whitmer 50ML) 50 ml @ 100 mls/hr DAILY@2200 IV 02/20/17 22:00 02/27/17 21:59 02/20/17 21:49 100 MLS/HR Enoxaparin Sodium (Lovenox Inj) 30 mg Q12H SQ 02/21/17 09:00 03/23/17 08:59 02/21/17 08:10 30 MG Fentanyl Citrate (Fentanyl Inj) 50 mcg Q2H PRN IV 02/21/17 04:00 03/07/17 03:59 02/21/17 08:19 50 MCG Multivitamins Therapeutic (Cerovite Liquid) 5 ml QAM PO 02/22/17 09:00 03/24/17 08:59 Lansoprazole (Prevacid Solutab) 30 mg DAILY PO 02/22/17 09:00 03/24/17 08:59 Aspirin (Aspirin Chew) 81 mg QAM PO 02/22/17 09:00 03/24/17 08:59 I & O: 24-Hour Column 02/21/17 07:59 Intake Total 1465 ml Output Total 375 ml Balance 1090 ml Vital Signs: Date Time Temp Pulse Resp B/P Pulse Ox O2 Delivery O2 Flow Rate FiO2 02/21/17 11:45 99 Room Air 02/21/17 08:15 97 Room Air 02/21/17 06:00 92 20 94/48 96 Room Air 02/21/17 04:00 37.0 98 22 101/43 96 02/21/17 04:00 95 Room Air 02/21/17 03:45 108 25 105/55 93 02/21/17 03:31 101 20 97/47 96 02/21/17 03:15 98 21 98/45 78 02/21/17 03:00 105 24 123/44 89 02/21/17 02:45 114 21 95/46 88 02/21/17 02:30 102 22 100/46 94 02/21/17 02:15 102 22 99/45 94 02/21/17 00:30 98 22 96/46 99 02/21/17 00:00 37.0 104 23 96/49 93 02/20/17 23:59 95 Room Air 02/20/17 23:45 95 22 100/43 95 02/20/17 23:00 100 23 96/46 02/20/17 22:30 104 24 103/50 89 02/20/17 22:01 105 25 102/82 91 02/20/17 21:30 106 23 111/50 95 02/20/17 21:00 104 23 109/49 95 02/20/17 20:59 102 23 108/51 02/20/17 20:15 102 24 125/54 95 02/20/17 20:00 37.3 110 25 102/56 02/20/17 19:35 37.1 102 22 110/57 95 Room Air 02/20/17 18:55 36.8 105 20 97/60 96 Room Air 02/20/17 18:13 120 18 107/44 95 Room Air 02/20/17 17:35 121 22 93/54 96 Room Air 02/20/17 15:41 118 24 99/64 96 Room Air 02/20/17 14:13 37.2 120 26 98/52 96 Room Air 02/20/17 14:13 96 Room Air Laboratory Results: Last 24 Hours Test 02/20/17 14:45 02/20/17 14:52 02/20/17 15:15 02/20/17 15:24 Urine Color DK YELLOW Urine Appearance CLOUDY Urine pH 5.5 Urine Specific [place] 1.016 Urine Protein NEG Urine Glucose (UA) NEG Urine Ketones TRACE Urine Occult Blood NEG Urine Nitrite NEG Urine Bilirubin NEG Urine Urobilinogen NEG Urine Leukocyte Esterase LARGE Urine WBC (Auto) >30 /hpf Urine RBC (Auto) 0-4 /hpf Urine Hyaline Casts (Auto) 1-5 /lpf Urine Epithelial Cells (Auto) 10-20 /lpf Urine Bacteria (Auto) NEG Urine Pathogenic Casts 0-3 GRANULAR CASTS /lpf Influenza Type A Antigen Neg for Influ A Influenza Type B Antigen Neg for Influ B White Blood Count 16.46 K/uL Red Blood Count 4.40 M/uL Hemoglobin 12.4 g/dL Hematocrit 38.9 % Mean Corpuscular Volume 88.4 fL Mean Corpuscular Hemoglobin 28.2 pg Mean Corpuscular Hemoglobin Concent 31.9 g/dl Platelet Count 343 K/uL Mean Platelet Volume 10.1 fL Neutrophils (%) (Auto) 91.2 % Lymphocytes (%) (Auto) 3.3 % Monocytes (%) (Auto) 3.2 % Eosinophils (%) (Auto) 1.9 % Basophils (%) (Auto) 0.1 % Neutrophils # (Auto) 15.02 K/uL Lymphocytes # (Auto) 0.55 K/uL Monocytes # (Auto) 0.52 K/uL Eosinophils # (Auto) 0.31 K/uL Basophils # (Auto) 0.01 K/uL RDW Standard Deviation 49.1 fL RDW Coefficient of Variation 15.4 % Immature Granulocyte % (Auto) 0.3 % Immature Granulocyte # (Auto) 0.05 K/uL Prothrombin Time 12.4 SECONDS Prothromb Time International Ratio 1.2 Activated Partial Thromboplast Time 29.7 SECONDS Partial Thromboplastin Ratio 1.1 Sodium Level 136 mmol/L Potassium Level 4.2 mmol/L Chloride Level 101 mmol/L Carbon Dioxide Level 25 mmol/L Anion Gap 10.0 mmol/L Blood Urea Nitrogen 26 mg/dl Creatinine 1.30 mg/dl Est Creatinine Clear Calc Drug Dose 44.5 ml/min Estimated GFR () 45.8 Estimated GFR (Non- 39.5 BUN/Creatinine Ratio 19.8 Random Glucose 114 mg/dl Calcium Level 9.3 mg/dl Total Bilirubin 0.5 mg/dl Aspartate Amino Transf (AST/SGOT) 10 U/L Alanine Aminotransferase (ALT/SGPT) 15 U/L Alkaline Phosphatase 81 U/L Troponin I < 0.015 ng/ml Total Protein 7.2 gm/dl Albumin 3.4 gm/dl Globulin 3.8 gm/dl Albumin/Globulin Ratio 0.9 Procalcitonin 0.92 ng/ml Thyroid Stimulating Hormone (TSH) 2.360 uIu/ml Bedside Lactic Acid Venous 5.14 mmol/L Test 02/20/17 18:00 02/20/17 20:14 02/20/17 21:48 02/21/17 03:40 Lactic Acid Level 4.8 mmol/L 2.1 mmol/L Troponin I 0.017 ng/ml 0.020 ng/ml Lipase 41 U/L Random Cortisol 59.13 mcg/dl Bedside Glucose 143 mg/dl White Blood Count 14.65 K/uL Red Blood Count 3.72 M/uL Hemoglobin 10.9 g/dL Hematocrit 32.7 % Mean Corpuscular Volume 87.9 fL Mean Corpuscular Hemoglobin 29.3 pg Mean Corpuscular Hemoglobin Concent 33.3 g/dl Platelet Count 279 K/uL Mean Platelet Volume 9.5 fL Neutrophils (%) (Auto) 87.9 % Lymphocytes (%) (Auto) 3.5 % Monocytes (%) (Auto) 3.2 % Eosinophils (%) (Auto) 5.0 % Basophils (%) (Auto) 0.1 % Neutrophils # (Auto) 12.87 K/uL Lymphocytes # (Auto) 0.52 K/uL Monocytes # (Auto) 0.47 K/uL Eosinophils # (Auto) 0.73 K/uL Basophils # (Auto) 0.01 K/uL RDW Standard Deviation 50.1 fL RDW Coefficient of Variation 15.5 % Immature Granulocyte % (Auto) 0.3 % Immature Granulocyte # (Auto) 0.05 K/uL Sodium Level 136 mmol/L Potassium Level 4.3 mmol/L Chloride Level 104 mmol/L Carbon Dioxide Level 25 mmol/L Anion Gap 7.0 mmol/L Blood Urea Nitrogen 31 mg/dl Creatinine 1.20 mg/dl Est Creatinine Clear Calc Drug Dose 49.3 ml/min Estimated GFR () 50.5 Estimated GFR (Non- 43.6 BUN/Creatinine Ratio 26.0 Random Glucose 149 mg/dl Calcium Level 8.5 mg/dl Phosphorus Level 3.5 mg/dl Magnesium Level 1.4 mg/dl Total Bilirubin 0.6 mg/dl Aspartate Amino Transf (AST/SGOT) 7 U/L Alanine Aminotransferase (ALT/SGPT) 9 U/L Alkaline Phosphatase 62 U/L Total Protein 6.1 gm/dl Albumin 2.9 gm/dl Globulin 3.2 gm/dl Albumin/Globulin Ratio 0.9 Random Vancomycin Level 20.8 mcg/ml Test 02/21/17 10:41 02/21/17 12:02 Bedside Glucose 149 mg/dl Problem Qualifiers (1) UTI (urinary tract infection): Urinary tract infection type: acute cystitis (2) Pneumonia: Pneumonia type: due to unspecified organism Laterality: left Lung location: lower lobe of lung Qualified Codes: J18.1 - Lobar pneumonia, unspecified organism
[2017-02-21] MEDS: SODIUM CHLORIDE 0.9% 1000ML 1,000 ML IV SCH ×2 (12:07→20:47)
--- NOTE | 2017-02-21 12:51 | Neurology Consultation ---
Neurology Consultation Date of Consultation: February 21, 2017. Attending Physician: Dean Siegel M.D. Primary Care Physician: Kojo Cohen MD Reason for Consultation: Patient is a 76-year-old, who was asked to see the request of Dr. Siegel, for neurologic consultation regarding Parkinson's disease. History of Present Illness Source: patient, caregiver, hospital records This patient has had Parkinson's disease for 5-6 years. Initially she saw Dr. ewing but then saw Dr. Benavidez in 2014. In [address] Edy Chaudhry. Finally, she now sees Dr. Bakari Mane, who apparently comes to [place] from [facility] as a movement disorder specialist but I don't have any details regarding this. The patient is on Stalevo 100, 2 tablets 4 times a day. She continues to be very stiff and slow with resting tremors. She denies that this gives her any confusion or hallucinations and she doesn't have dyskinesia. I saw this patient in the hospital in August 2016. She was having freezing episodes and difficulty walking for a month or so. At that time, I recommended increasing the Stalevo (to the current dose) 6. We recommended physical therapy for gait training and improve function. Patient has been having general weakness and trouble walking. She was diagnosed with a UTI and possible sepsis admitted February 20. CT scan of the head and cervical spine were largely unremarkable. Laboratory studies on admission showed an elevated white count, some mild anemia, and a normal chem profile and TSH. She had some hypotension as well as the infection and a possible pneumonia on chest x-ray. He is currently in the ICU but stable. 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 Bentley. She is on prednisone and azathioprine Post bilateral cataract surgery Family History Mother at age 102 with a senile dementia the Alzheimer's type and had a stroke Father age 92 of an abdominal aortic aneurysm rupture she has a sister with tremor but there is no family history of Parkinson's disease Social History Patient smokes a half-pack of cigarettes per day. She does not consume alcohol. She lives with her daughter in [facility]. 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 Smoking Status: Current some day smoker Smokeless Tobacco Use: No Alcohol Use: none Drug Use: none Marital Status: Housing Status: lives with family Occupation Status: unemployed Allergies Coded Allergies: No Known Allergies (Unverified , 02/20/17) Current Inpatient Medications Current Inpatient Medications Medications (Trade) Dose Ordered Sig/Julián Route Start Time Stop Time Status Last Admin Dose Admin Sodium Chloride (Nss 1000ml) 1,000 ml @ 100 mls/hr Q10H IV 02/20/17 19:30 03/22/17 19:29 02/20/17 21:40 100 MLS/HR Acetaminophen (Tylenol Tab) 650 mg Q4H PRN PO 02/20/17 18:00 03/22/17 17:59 Zolpidem Tartrate 5 mg 5 mg HSZ PRN PO 02/20/17 18:00 03/22/17 17:59 Levofloxacin/Prmx (Levaquin / D5W/ Premixed D5W) 100 ml @ 100 mls/hr Q24H IV 02/21/17 18:00 02/25/17 23:59 Azathioprine (Imuran Tab) 50 mg DAILY PO 02/21/17 09:00 03/23/17 08:59 02/21/17 08:15 50 MG Insulin Aspart (novoLOG ASPART) ACHS SC 02/20/17 21:00 03/22/17 20:59 Metformin HCl (Glucophage Tab) 850 mg TIDM PO 02/21/17 07:15 03/23/17 07:59 Future Hold Polyethylene (Miralax Powder Packet) 17 gm DAILY PRN PO 02/20/17 18:15 03/22/17 18:14 Tramadol HCl (Ultram Tab) 50 mg Q6H PRN PO 02/20/17 18:15 03/22/17 18:14 02/20/17 21:06 50 MG Carbidopa/Levodopa (Sinemet 25/ 100MG Tab) 2 tab QID PO 02/20/17 21:00 03/22/17 20:59 02/21/17 08:14 2 TAB Entacapone 400 mg 400 mg QID PO 02/20/17 21:00 03/22/17 20:59 02/20/17 21:44 400 MG Ceftriaxone Sodium/Dextrose (Rocephin Inj/ Dextrose Add-[place] 50ML) 50 ml @ 100 mls/hr DAILY@2200 IV 02/20/17 22:00 02/27/17 21:59 02/20/17 21:49 100 MLS/HR Enoxaparin Sodium (Lovenox Inj) 30 mg Q12H SQ 02/21/17 09:00 03/23/17 08:59 02/21/17 08:10 30 MG Fentanyl Citrate (Fentanyl Inj) 50 mcg Q2H PRN IV 02/21/17 04:00 03/07/17 03:59 02/21/17 08:19 50 MCG Multivitamins Therapeutic (Cerovite Liquid) 5 ml QAM PO 02/22/17 09:00 03/24/17 08:59 Lansoprazole (Prevacid Solutab) 30 mg DAILY PO 02/22/17 09:00 03/24/17 08:59 Aspirin (Aspirin Chew) 81 mg QAM PO 02/22/17 09:00 03/24/17 08:59 Review of Systems Constitutional: + fatigue, + weakness Eyes: No diplopia, No worsening of vision ENT: No hearing loss, No tinnitus Respiratory: No cough, No shortness of breath Cardiovascular: No chest pain, No palpitations Abdomen: No nausea, No pain Musculoskeletal: + joint pain, No muscle pain Genitourinary - Female: No dysuria, No urinary incontinence Neurologic: + balance problems, + weakness, No memory loss, No numbness/ tingling, No vertigo Psychiatric: No anxiety, No depression symptoms Endocrine: + fatigue Hematologic / Lymphatic: No abnormal bleeding/bruising Integumentary: No rash Allergic / Immunologic: No hives Physical Exam Vital Signs (Past 24 Hrs): Date Time Temp Pulse Resp B/P Pulse Ox O2 Delivery O2 Flow Rate FiO2 02/21/17 11:45 99 Room Air 02/21/17 08:15 97 Room Air 02/21/17 06:00 92 20 94/48 96 Room Air 02/21/17 04:00 37.0 98 22 101/43 96 02/21/17 04:00 95 Room Air 02/21/17 03:45 108 25 105/55 93 02/21/17 03:31 101 20 97/47 96 02/21/17 03:15 98 21 98/45 78 02/21/17 03:00 105 24 123/44 89 02/21/17 02:45 114 21 95/46 88 02/21/17 02:30 102 22 100/46 94 02/21/17 02:15 102 22 99/45 94 02/21/17 00:30 98 22 96/46 99 02/21/17 00:00 37.0 104 23 96/49 93 02/20/17 23:59 95 Room Air 02/20/17 23:45 95 22 100/43 95 02/20/17 23:00 100 23 96/46 02/20/17 22:30 104 24 103/50 89 02/20/17 22:01 105 25 102/82 91 02/20/17 21:30 106 23 111/50 95 02/20/17 21:00 104 23 109/49 95 02/20/17 20:59 102 23 108/51 02/20/17 20:15 102 24 125/54 95 02/20/17 20:00 37.3 110 25 102/56 02/20/17 19:35 37.1 102 22 110/57 95 Room Air 02/20/17 18:55 36.8 105 20 97/60 96 Room Air 02/20/17 18:13 120 18 107/44 95 Room Air 02/20/17 17:35 121 22 93/54 96 Room Air 02/20/17 15:41 118 24 99/64 96 Room Air 02/20/17 14:13 37.2 120 26 98/52 96 Room Air 02/20/17 14:13 96 Room Air The patient is right-handed. The patient is awake and alert. Speech is normal without aphasia or dysarthria. Mentation and thought processes are grossly intact with conversation. Mood and affect are normal and appropriate. Appearance and grooming are normal. The discs are sharp with positive venous pulsations. There are no exudates, hemorrhages, or blood vessel changes seen. Pupils are 4mm bilaterally and reactive to light. Extraocular eye muscles are intact without nystagmus. Visual acuity and visual oneal seem normal grossly to confrontation. Patient has a mild masklike face. She has bradykinesia in general of a moderate degree. There are no deficits to sensation of the face bilaterally. Corneal reflexes are positive bilaterally. Facial strength and symmetry is normal bilaterally. Hearing seems intact grossly to voice and finger rub. Palate moves well without asymmetry. There is normal sternocleidomastoid and trapezius strength bilaterally. Tongue is midline with good strength bilaterally. Neck is with full range of motion without discomfort. There are no cervical bruits. There are no cranial or ocular bruits. Heart is without murmur. Cervical, thoracic, and lumbar spine are nontender to palpation. Gait is is not tested in stance is difficult to maintain in bed With outstretched arms there is no drift. There are no postural or action tremors. She has mild intermittent resting tremor in the hands bilaterally. There is no ataxia with [id number] testing. There is good facility in the hands. There are no abnormal involuntary movements noted. Motor strength is 5/5 diffusely in the arms bilaterally including deltoids, biceps, brachioradialis, wrist flexors and extensors, fireman, and intrinsic hand muscles. Motor strength is 5/5 diffusely in the legs bilaterally including hip flexors, quadriceps, hamstring, gastrocnemius, tibialis anterior, tibialis posterior, and peroneii muscles bilaterally. Toe extensors are normal and there is good bulk in the extensor digitorum brevis muscle bilaterally. There is moderate rigidity and cogwheeling in the limbs bilaterally. Sensory examination is intact to pin and touch throughout all four limbs. Reflexes are 1/4 in the biceps, triceps, brachioradialis, quadriceps, and Achilles tendons bilaterally. Toes are downgoing with plantar stimulation bilaterally. Peripheral pulses are present and of normal quality distally in all four limbs. There is no peripheral edema noted. Laboratory Results Past 24 Hours: 02/21/17 03:40 Red Blood Count 3.72, Mean Corpuscular Volume 87.9, Mean Corpuscular Hemoglobin 29.3, Mean Corpuscular Hemoglobin Concent 33.3, Mean Platelet Volume 9.5, Neutrophils (%) (Auto) 87.9, Lymphocytes (%) (Auto) 3.5, Monocytes (%) (Auto) 3.2, Eosinophils (%) (Auto) 5.0, Basophils (%) (Auto) 0.1, Neutrophils # (Auto) 12.87, Lymphocytes # (Auto) 0.52, Monocytes # (Auto) 0.47, Eosinophils # (Auto) 0.73, Basophils # (Auto) 0.01 02/21/17 03:40 Test 02/20/17 14:45 02/20/17 14:52 02/20/17 15:15 02/20/17 15:24 Urine Color DK YELLOW Urine Appearance CLOUDY (CLEAR) Urine pH 5.5 (4.5-7.5) Urine Specific [place] 1.016 (1.000-1.030) Urine Protein NEG (NEG) Urine Glucose (UA) NEG (NEG) Urine Ketones TRACE (NEG) Urine Occult Blood NEG (NEG) Urine Nitrite NEG (NEG) Urine Bilirubin NEG (NEG) Urine Urobilinogen NEG (NEG) Urine Leukocyte Esterase LARGE (NEG) Urine WBC (Auto) >30 /hpf (0-5) Urine RBC (Auto) 0-4 /hpf (0-4) Urine Hyaline Casts (Auto) 1-5 /lpf (0-5) Urine Epithelial Cells (Auto) 10-20 /lpf (0-5) Urine Bacteria (Auto) NEG (NEG) Urine Pathogenic Casts 0-3 GRANULAR CASTS /lpf (0) Influenza Type A Antigen Neg for Influ A (NEG) Influenza Type B Antigen Neg for Influ B (NEG) Prothrombin Time 12.4 SECONDS (9.0-12.0) Prothromb Time International Ratio 1.2 (0.9-1.1) Activated Partial Thromboplast Time 29.7 SECONDS (21.0-31.0) Partial Thromboplastin Ratio 1.1 Procalcitonin 0.92 ng/ml (0-0.5) Thyroid Stimulating Hormone (TSH) 2.360 uIu/ml (0.300-4.500) Bedside Lactic Acid Venous 5.14 mmol/L (0.90-1.70) Test 02/20/17 20:14 02/21/17 03:40 02/21/17 10:41 02/21/17 12:02 Lipase 41 U/L (73-393) Random Cortisol 59.13 mcg/dl White Blood Count 14.65 K/uL (4.8-10.8) Red Blood Count 3.72 M/uL (4.2-5.4) Hemoglobin 10.9 g/dL (12.0-16.0) Hematocrit 32.7 % (37-47) Mean Corpuscular Volume 87.9 fL (80-100) Mean Corpuscular Hemoglobin 29.3 pg (25-34) Mean Corpuscular Hemoglobin Concent 33.3 g/dl (32-36) Platelet Count 279 K/uL (130-400) Mean Platelet Volume 9.5 fL (7.4-10.4) Neutrophils (%) (Auto) 87.9 % Lymphocytes (%) (Auto) 3.5 % Monocytes (%) (Auto) 3.2 % Eosinophils (%) (Auto) 5.0 % Basophils (%) (Auto) 0.1 % Neutrophils # (Auto) 12.87 K/uL (1.4-6.5) Lymphocytes # (Auto) 0.52 K/uL (1.2-3.4) Monocytes # (Auto) 0.47 K/uL (0.11-0.59) Eosinophils # (Auto) 0.73 K/uL (0-0.5) Basophils # (Auto) 0.01 K/uL (0-0.2) RDW Standard Deviation 50.1 fL (36.4-46.3) RDW Coefficient of Variation 15.5 % (11.5-14.5) Immature Granulocyte % (Auto) 0.3 % Immature Granulocyte # (Auto) 0.05 K/uL (0.00-0.02) Anion Gap 7.0 mmol/L (3-11) Est Creatinine Clear Calc Drug Dose 49.3 ml/min Estimated GFR () 50.5 Estimated GFR (Non- 43.6 BUN/Creatinine Ratio 26.0 (10-20) Lactic Acid Level 2.1 mmol/L (0.4-2.0) Calcium Level 8.5 mg/dl (8.5-10.1) Phosphorus Level 3.5 mg/dl (2.5-4.9) Magnesium Level 1.4 mg/dl (1.8-2.4) Total Bilirubin 0.6 mg/dl (0.2-1) Aspartate Amino Transf (AST/SGOT) 7 U/L (15-37) Alanine Aminotransferase (ALT/SGPT) 9 U/L (12-78) Alkaline Phosphatase 62 U/L (45-117) Total Protein 6.1 gm/dl (6.4-8.2) Albumin 2.9 gm/dl (3.4-5.0) Globulin 3.2 gm/dl (2.5-4.0) Albumin/Globulin Ratio 0.9 (0.9-2) Random Vancomycin Level 20.8 mcg/ml Bedside Glucose 149 mg/dl (70-90) Date/Time Source Procedure Growth Status 02/20/17 16:43 Nasal MRSA DNA Surveillance Screen - Final Specimen Positive for MRSA by DNA Probe Complete Impression 1. Advanced Parkinson's disease. She continues to have rigidity, bradykinesia, gait issues, and tremor despite her current medication regimen. 2. Dementia She has a relatively mild vascular/aging dementia and is functioning fairly well Plan 1. Increase carbidopa/levodopa to 25/250, 1 tablet 4 times a day taken with entacapone 200 mg 4 times a day. Entacapone should not be taken separately. 2. As an outpatient she could be switched to Stalevo 150, 2 tablets 4 times a day. 3. Physical and occupational therapy consults Consider rehabilitation hospital stay for leg strengthening and gait training. I spoke with Dr. Cronin regarding this case. We discussed diagnoses and treatment options. She will follow-up with her regular neurologist as an outpatient.
[2017-02-21] MEDS ORDERED: ENTACAPONE 200 MG TAB PO SCH ×2 (13:30→17:00)
[2017-02-21] MEDS: CARBIDOPA/LEVODOPA 25-250 1 EA TAB PO SCH ×3 (13:30→20:38)
--- NOTE | 2017-02-21 14:42 | Medical Student: [facility] ---
Med Student History & Physical Date & Time of Service: February 21, 2017 at 13:55 Chief Complaint: Hypotension (Arterial) Primary Care Physician: Kojo Cohen MD History of Present Illness Source: patient The patient is a 76-year old right-handed female with a five year history of Parkison's Disease, in addition to a prior medical history of diabetes, dementia , LIONEL, hypertension, atrial fibrillation, and pemphigoid. She was diagnosed with a UTI on 02/19/17 and started on bactrim.The patient reported to the emergency department on 02/20/17 due to inability to move and weakness. On arrival , the patient was found to be hypotensive into the 90's systolic. She was given fluids and started on antibiotics. CXR showed left lower lobe consolidation which was later shown on CT scan to be a pleural effusion. It was decided to admit the patient to the hospital for further workup. Upon admission, the patient received several CT scans including head, neck, chest, and abdomen/pelvis which revealed no source of sepsis. Despite this, the patient did meet SIRS criteria and was transferred to the ICU. The patient was found to have an elevated WBC count and a slight anemia. The patient describes a worsening on her Parkinsonian symptoms over the past weeks to months, however did note that she was able to walk with aid from her walker last week. She is currently unable to support herself sitting up on the edge of her bed. The patient is currently taking Stalevo 100, two tablets four times a day and has been on this dose since August of 2016. Despite this, the patient is experiencing moderate to severe stiffness and tremors. The patient follows with Bakari BLAKE from [facility] for her Parkinson's disease. The patient lives at [place] with her daughter in a one story apartment.The patient is currently in the ICU but in stable condition. Past Medical/Surgical History Medical Problems: (1) Atrial fibrillation Status: Acute (2) Contusion of multiple sites Status: Acute (3) Dehydration Status: Acute (4) Fall Status: Acute (5) Fall Status: Acute (6) Fever Status: Acute (7) Hyponatremia Status: Acute (8) Parkinsons disease Status: Acute (9) Pneumonia Status: Acute (10) UTI (urinary tract infection) Status: Acute (11) UTI (urinary tract infection) Status: Acute (12) Weakness Status: Acute Family History The patient's father of complications related to an aortic aneurysm at age 92 and her mother at age 102 from Alzheimer's dementia. The patient's sister has a hand tremor. Social History Smoking Status: Light Tobacco Smoker Smokeless Tobacco Use: No Alcohol Use: none Drug Use: none Marital Status: Occupational Status: unemployed Immunizations Influenza Vaccine Date: Nov 24, 2010 History of Tetanus Vaccine?: No History of Pneumococcal: Yes Pneumococcal Date: Nov 24, 2010 History of Hepatitis B Vaccine: No Allergies Coded Allergies: No Known Allergies (Unverified , 02/20/17) Medications Acetaminophen (Tylenol), 1,000 MG PO DIRECTED PRN for Pain Aspirin (Aspirin Ec), 81 MG PO DAILY Azathioprine (Imuran), 50 MG PO DAILY Carbidopa/Levodopa/Entacapone 25/100/200MG (Stalevo 100), 2 TAB PO QID Cyanocobalamin (Cyanocobalamin), 1,000 MCG IM DIRECTED Insulin Aspart (Novolog Flexpen), 0 UNITS SC ACHS Metformin Hcl (Glucophage), 850 MG PO TIDM Multivitamins/Minerals (Mvi With Minerals), 1 TAB PO DAILY Pantoprazole (Protonix), 40 MG PO DAILY Polyethylene (Miralax), 17 GM PO DAILY PRN for Constipation Sulfa/Trimethoprim (Bactrim Ds 800MG/160MG), 1 TAB PO BID Tramadol HCl (Tramadol HCl), 50 MG PO Q6H PRN for Pain Review of Systems Constitutional: + fatigue, + weakness Genitourinary - Female: + dysuria, + urinary frequency, + urinary urgency Neurologic: + memory loss, + paralysis, + weakness Physical Exam Vital Signs (24 Hours) Date Time Temp Pulse Resp B/P Pulse Ox O2 Delivery O2 Flow Rate FiO2 02/21/17 11:45 99 Room Air 02/21/17 08:15 97 Room Air 02/21/17 06:00 92 20 94/48 96 Room Air 02/21/17 04:00 37.0 98 22 101/43 96 02/21/17 04:00 95 Room Air 02/21/17 03:45 108 25 105/55 93 02/21/17 03:31 101 20 97/47 96 02/21/17 03:15 98 21 98/45 78 02/21/17 03:00 105 24 123/44 89 02/21/17 02:45 114 21 95/46 88 02/21/17 02:30 102 22 100/46 94 02/21/17 02:15 102 22 99/45 94 02/21/17 00:30 98 22 96/46 99 02/21/17 00:00 37.0 104 23 96/49 93 02/20/17 23:59 95 Room Air 02/20/17 23:45 95 22 100/43 95 02/20/17 23:00 100 23 96/46 02/20/17 22:30 104 24 103/50 89 02/20/17 22:01 105 25 102/82 91 02/20/17 21:30 106 23 111/50 95 02/20/17 21:00 104 23 109/49 95 02/20/17 20:59 102 23 108/51 02/20/17 20:15 102 24 125/54 95 02/20/17 20:00 37.3 110 25 102/56 02/20/17 19:35 37.1 102 22 110/57 95 Room Air 02/20/17 18:55 36.8 105 20 97/60 96 Room Air 02/20/17 18:13 120 18 107/44 95 Room Air 02/20/17 17:35 121 22 93/54 96 Room Air 02/20/17 15:41 118 24 99/64 96 Room Air 02/20/17 14:13 37.2 120 26 98/52 96 Room Air 02/20/17 14:13 96 Room Air General Appearance: + mild distress Head: normocephalic, atraumatic Eyes: PERRL, funduscopic exam normal ENT: hearing grossly normal, pharynx normal Extremities/Musculoskelatal: normal inspection, non-tender Neurology Exam Mental Status The patient is awake, alert and oriented to person, time, and place. Her mentation and thought processes are normal. Mood and affect are appropriate. Speech is fluid, without pauses or expressive aphasia. Motor The patient has 5/5 strength bilaterally in the proximal and distal upper extremities. Lower extremities are 5/5 proximally and 4/5 distally. There is significant tremor of the hands at rest and with movement. Cranial Nerves II Pupillary light reflex is normal. Pupils are 4mm and briskly reactive to light. No papilledema is noted on fundoscopic exam. Venous pulsations are noted bilaterally. III, IV, and EOMs are intact. There is right eye horizontal nystagmus upon rightward gaze. V Sensation is normal in all three distributions of CN V. Masseter muscle is 5/ 5 bilaterally. VII No facial droop is noted. Patient is able to fully close eyes against resistance and wrinkle forehead appropriately. There is a moderate mask-like face present. VIII Hearing is grossly intact to finger rub bilaterally. IX, X Phonation is normal. The palate elevates equally and uvula is midline. XI Shoulder shrug is 5/5. The patient is able to turn her head fully. XII Tongue protrudes to midline. All range of motions are intact. Strength is 5/ 5 Sensation Sensation is normal to fine touch, pin prick, vibration, and temperature in both the proximal and distal lower and upper extremities. DTRs Reflexes are 1/4 bilaterally in biceps, brachioradialis, triceps, knee, and ankle jerk. Toes are downgoing in both feet. Tone There is moderate rigidity and cogwheeling noted in both the upper and lower extremities. This is equal on the left and right. Coordination/Gait The patient has a prominent tremor in her hands. However, [id number] testing showed no ataxia. Rapid alternating movements were slowed. There was no pronator drift. Heel to varela testing was unable to be performed due to lack of strength and leg compressions. Gait was deferred at this time due to the patient 's fall risk and wesley catheter. She is unable to sit up in bed unsupported. Diagnostics Laboratory Results Results Past 24 Hours Test 02/20/17 14:45 02/20/17 14:52 02/20/17 15:15 02/20/17 15:24 Range/Units Urine Color DK YELLOW Urine Appearance CLOUDY CLEAR Urine pH 5.5 4.5-7.5 Urine Specific [place] 1.016 1.000-1.030 Urine Protein NEG NEG Urine Glucose (UA) NEG NEG Urine Ketones TRACE NEG Urine Occult Blood NEG NEG Urine Nitrite NEG NEG Urine Bilirubin NEG NEG Urine Urobilinogen NEG NEG Urine Leukocyte Esterase LARGE NEG Urine WBC (Auto) >30 0-5 /hpf Urine RBC (Auto) 0-4 0-4 /hpf Urine Hyaline Casts (Auto) 1-5 0-5 /lpf Urine Epithelial Cells (Auto) 10-20 0-5 /lpf Urine Bacteria (Auto) NEG NEG Urine Pathogenic Casts 0-3 GRANULAR CASTS 0 /lpf Influenza Type A Antigen Neg for Influ A NEG Influenza Type B Antigen Neg for Influ B NEG White Blood Count 16.46 4.8-10.8 K/uL Red Blood Count 4.40 4.2-5.4 M/uL Hemoglobin 12.4 12.0-16.0 g/dL Hematocrit 38.9 37-47 % Mean Corpuscular Volume 88.4 80-100 fL Mean Corpuscular Hemoglobin 28.2 25-34 pg Mean Corpuscular Hemoglobin Concent 31.9 32-36 g/dl Platelet Count 343 130-400 K/uL Mean Platelet Volume 10.1 7.4-10.4 fL Neutrophils (%) (Auto) 91.2 % Lymphocytes (%) (Auto) 3.3 % Monocytes (%) (Auto) 3.2 % Eosinophils (%) (Auto) 1.9 % Basophils (%) (Auto) 0.1 % Neutrophils # (Auto) 15.02 1.4-6.5 K/uL Lymphocytes # (Auto) 0.55 1.2-3.4 K/uL Monocytes # (Auto) 0.52 0.11-0.59 K/uL Eosinophils # (Auto) 0.31 0-0.5 K/uL Basophils # (Auto) 0.01 0-0.2 K/uL RDW Standard Deviation 49.1 36.4-46.3 fL RDW Coefficient of Variation 15.4 11.5-14.5 % Immature Granulocyte % (Auto) 0.3 % Immature Granulocyte # (Auto) 0.05 0.00-0.02 K/uL Prothrombin Time 12.4 9.0-12.0 SECONDS Prothromb Time International Ratio 1.2 0.9-1.1 Activated Partial Thromboplast Time 29.7 21.0-31.0 SECONDS Partial Thromboplastin Ratio 1.1 Sodium Level 136 136-145 mmol/L Potassium Level 4.2 3.5-5.1 mmol/L Chloride Level 101 98-107 mmol/L Carbon Dioxide Level 25 21-32 mmol/L Anion Gap 10.0 3-11 mmol/L Blood Urea Nitrogen 26 7-18 mg/dl Creatinine 1.30 0.60-1.20 mg/dl Est Creatinine Clear Calc Drug Dose 44.5 ml/min Estimated GFR () 45.8 Estimated GFR (Non- 39.5 BUN/Creatinine Ratio 19.8 10-20 Random Glucose 114 70-99 mg/dl Calcium Level 9.3 8.5-10.1 mg/dl Total Bilirubin 0.5 0.2-1 mg/dl Aspartate Amino Transf (AST/SGOT) 10 15-37 U/L Alanine Aminotransferase (ALT/SGPT) 15 12-78 U/L Alkaline Phosphatase 81 45-117 U/L Troponin I < 0.015 0-0.045 ng/ml Total Protein 7.2 6.4-8.2 gm/dl Albumin 3.4 3.4-5.0 gm/dl Globulin 3.8 2.5-4.0 gm/dl Albumin/Globulin Ratio 0.9 0.9-2 Procalcitonin 0.92 0-0.5 ng/ml Thyroid Stimulating Hormone (TSH) 2.360 0.300-4.500 uIu/ml Bedside Lactic Acid Venous 5.14 0.90-1.70 mmol/L Test 02/20/17 18:00 02/20/17 20:14 02/20/17 21:48 02/21/17 03:40 Range/Units Lactic Acid Level 4.8 2.1 0.4-2.0 mmol/L Troponin I 0.017 0.020 0-0.045 ng/ml Lipase 41 73-393 U/L Random Cortisol 59.13 mcg/dl Bedside Glucose 143 70-90 mg/dl White Blood Count 14.65 4.8-10.8 K/uL Red Blood Count 3.72 4.2-5.4 M/uL Hemoglobin 10.9 12.0-16.0 g/dL Hematocrit 32.7 37-47 % Mean Corpuscular Volume 87.9 80-100 fL Mean Corpuscular Hemoglobin 29.3 25-34 pg Mean Corpuscular Hemoglobin Concent 33.3 32-36 g/dl Platelet Count 279 130-400 K/uL Mean Platelet Volume 9.5 7.4-10.4 fL Neutrophils (%) (Auto) 87.9 % Lymphocytes (%) (Auto) 3.5 % Monocytes (%) (Auto) 3.2 % Eosinophils (%) (Auto) 5.0 % Basophils (%) (Auto) 0.1 % Neutrophils # (Auto) 12.87 1.4-6.5 K/uL Lymphocytes # (Auto) 0.52 1.2-3.4 K/uL Monocytes # (Auto) 0.47 0.11-0.59 K/uL Eosinophils # (Auto) 0.73 0-0.5 K/uL Basophils # (Auto) 0.01 0-0.2 K/uL RDW Standard Deviation 50.1 36.4-46.3 fL RDW Coefficient of Variation 15.5 11.5-14.5 % Immature Granulocyte % (Auto) 0.3 % Immature Granulocyte # (Auto) 0.05 0.00-0.02 K/uL Sodium Level 136 136-145 mmol/L Potassium Level 4.3 3.5-5.1 mmol/L Chloride Level 104 98-107 mmol/L Carbon Dioxide Level 25 21-32 mmol/L Anion Gap 7.0 3-11 mmol/L Blood Urea Nitrogen 31 7-18 mg/dl Creatinine 1.20 0.60-1.20 mg/dl Est Creatinine Clear Calc Drug Dose 49.3 ml/min Estimated GFR () 50.5 Estimated GFR (Non- 43.6 BUN/Creatinine Ratio 26.0 10-20 Random Glucose 149 70-99 mg/dl Calcium Level 8.5 8.5-10.1 mg/dl Phosphorus Level 3.5 2.5-4.9 mg/dl Magnesium Level 1.4 1.8-2.4 mg/dl Total Bilirubin 0.6 0.2-1 mg/dl Aspartate Amino Transf (AST/SGOT) 7 15-37 U/L Alanine Aminotransferase (ALT/SGPT) 9 12-78 U/L Alkaline Phosphatase 62 45-117 U/L Total Protein 6.1 6.4-8.2 gm/dl Albumin 2.9 3.4-5.0 gm/dl Globulin 3.2 2.5-4.0 gm/dl Albumin/Globulin Ratio 0.9 0.9-2 Random Vancomycin Level 20.8 mcg/ml Test 02/21/17 10:41 02/21/17 12:02 Range/Units Bedside Glucose 149 70-90 mg/dl Troponin I < 0.015 0-0.045 ng/ml Microbiology Results 02/20/17 Fungal Smear, Received Pending 02/20/17 Fungal Culture, Received Pending 02/20/17 Blood Culture, Received Pending 02/20/17 Blood Culture, Received Pending 02/20/17 MRSA DNA Surveillance Screen - Final, Complete Specimen Positive for MRSA by DNA Probe 02/20/17 Urine Culture - Preliminary, Resulted NO GROWTH - LESS THAN 1,000 COLONIES/... Impression Assessment and Plan Assessment The patient appears to have worsening of her Parkinson's symptoms. Bradykinesia , rigidity, gait issues, episodic freezing spells, and tremors are still occurring despite treatment. Her disease appears to be quite advanced. She also has a UTI in addition to a possible pneumonia vs effusion. Her last EKG also showed her to be in a junctional rhythm. There is some evidence of dementia on exam, however she appears to be thinking quite clearly at the moment. Plan 1.) Increase Cinemet to 25/250 1 tablet 4x a day. This is to be taken with entacopone 200 mg 1 tablet 4x a day. Note that these medications must be taken together to be effective. 2.) Continue bactrim for UTI 3.) PT/OT consults for weakness 4.) Continue to monitor her heart rhythm and consult cardiology for any more changes. Remain anticoagulated due to a-fib. 5.) Consider inpatient rehabilitation admission after hospital stay to regain some strength and function prior to returning home. 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
--- NOTE | 2017-02-21 15:10 | Hospitalist Progress Note ---
Hospitalist Progress Note Date of Service February 21, 2017. Subjective Pt evaluation today including: conversation w/ patient, conversation w/ family , physical exam, chart review Symptomatically much improved. No fevers. BP improved with IV fluids. US legs are neg for DVT. CT head with no acute abnormality Medications Medications (Trade) Dose Ordered Sig/Julián Route Start Time Stop Time Status Last Admin Dose Admin Piperacillin Sod/ Tazobactam Sod 4.5 gm 4.5 gm NOW STAT IV 02/20/17 15:25 02/20/17 15:26 DC 02/20/17 15:40 4.5 GM Levofloxacin ml @ 100 mls/hr NOW STAT IV 02/20/17 15:41 02/20/17 15:43 DC 02/20/17 16:44 100 MLS/HR Sodium Chloride (Nss 500ml) 500 ml @ 999 mls/hr Q31M STAT IV 02/20/17 15:47 02/20/17 16:17 DC 02/20/17 15:51 999 MLS/HR Acetaminophen 650 mg 650 mg STK-MED ONCE .ROUTE 02/20/17 17:03 02/20/17 17:04 DC 02/20/17 17:05 650 MG Sodium Chloride (Nss 1000ml) 1,000 ml @ 100 mls/hr Q10H IV 02/20/17 19:30 03/22/17 19:29 02/21/17 12:07 100 MLS/HR Aspirin (Ecotrin Tab) 81 mg DAILY PO 02/21/17 09:00 02/21/17 09:15 DC 02/21/17 08:15 81 MG Azathioprine (Imuran Tab) 50 mg DAILY PO 02/21/17 09:00 03/23/17 08:59 02/21/17 08:15 50 MG Pantoprazole Sodium (Protonix Tab) 40 mg DAILY PO 02/21/17 09:00 02/21/17 09:10 DC 02/21/17 08:15 40 MG Tramadol HCl 50 mg 50 mg Q6H PRN PO 02/20/17 18:15 03/22/17 18:14 02/20/17 21:06 50 MG Vancomycin HCl 1900 mg/Sodium Chloride 538 ml @ 200 mls/hr TODAY@2000 ONCE IV 02/20/17 20:00 02/20/17 22:41 DC 02/20/17 21:41 200 MLS/HR Thiamine HCl/ Syringe (Vitamin B-1 Inj/ Syringe) 10 ml @ 2 mls/min NOW ONCE IV 02/20/17 20:00 02/20/17 20:04 DC 02/20/17 21:42 2 MLS/MIN Carbidopa/Levodopa (Sinemet 25/ 100MG Tab) 2 tab QID PO 02/20/17 21:00 02/21/17 12:57 DC 02/21/17 08:14 2 TAB Entacapone (Comtan) 400 mg QID PO 02/20/17 21:00 02/21/17 12:57 DC 02/20/17 21:44 400 MG Metoclopramide HCl 10 mg 10 mg STK-MED ONCE .ROUTE 02/20/17 19:41 02/20/17 19:42 DC 02/20/17 21:40 10 MG Ceftriaxone Sodium/Dextrose (Rocephin Inj/ Dextrose Add-[place] 50ML) 50 ml @ 100 mls/hr DAILY@2200 IV 02/20/17 22:00 02/27/17 21:59 02/20/17 21:49 100 MLS/HR Enoxaparin Sodium (Lovenox Inj) 30 mg Q12H SQ 02/21/17 09:00 03/23/17 08:59 02/21/17 08:10 30 MG Fentanyl Citrate (Fentanyl Inj) 25 mcg Q2H PRN IV 02/21/17 01:45 02/21/17 03:53 DC 02/21/17 02:16 25 MCG Fentanyl Citrate 50 mcg 50 mcg Q2H PRN IV 02/21/17 04:00 03/07/17 03:59 02/21/17 08:19 50 MCG Magnesium Sulfate/ Prmx (Magnesium Sulfate/Premixed D5W) 100 ml @ 100 mls/hr NOW STAT IV 02/21/17 04:23 02/21/17 05:22 DC 02/21/17 05:00 100 MLS/HR Objective Vital Signs Date Time Temp Pulse Resp B/P Pulse Ox O2 Delivery O2 Flow Rate FiO2 02/21/17 13:00 98 24 100 02/21/17 11:45 99 Room Air 02/21/17 11:00 99 22 98 02/21/17 10:31 97 14 108/76 95 Room Air 02/21/17 10:00 91 22 103/49 02/21/17 09:30 96 24 111/54 91 02/21/17 09:00 96 22 111/44 02/21/17 08:30 110 21 132/54 92 02/21/17 08:15 97 Room Air 02/21/17 08:15 37.1 106 18 132/59 90 Room Air 02/21/17 08:00 96 24 118/45 95 02/21/17 07:45 102 23 120/48 92 02/21/17 07:30 104 26 121/71 92 02/21/17 07:15 97 22 115/54 93 02/21/17 07:00 162 22 101/55 02/21/17 06:00 92 20 94/48 96 Room Air 02/21/17 04:00 37.0 98 22 101/43 96 02/21/17 04:00 95 Room Air 02/21/17 03:45 108 25 105/55 93 02/21/17 03:31 101 20 97/47 96 02/21/17 03:15 98 21 98/45 78 02/21/17 03:00 105 24 123/44 89 02/21/17 02:45 114 21 95/46 88 02/21/17 02:30 102 22 100/46 94 02/21/17 02:15 102 22 99/45 94 02/21/17 00:30 98 22 96/46 99 02/21/17 00:00 37.0 104 23 96/49 93 02/20/17 23:59 95 Room Air 02/20/17 23:45 95 22 100/43 95 02/20/17 23:00 100 23 96/46 02/20/17 22:30 104 24 103/50 89 02/20/17 22:01 105 25 102/82 91 02/20/17 21:30 106 23 111/50 95 02/20/17 21:00 104 23 109/49 95 02/20/17 20:59 102 23 108/51 02/20/17 20:15 102 24 125/54 95 02/20/17 20:00 37.3 110 25 102/56 02/20/17 19:35 37.1 102 22 110/57 95 Room Air 02/20/17 18:55 36.8 105 20 97/60 96 Room Air 02/20/17 18:13 120 18 107/44 95 Room Air 02/20/17 17:35 121 22 93/54 96 Room Air 02/20/17 15:41 118 24 99/64 96 Room Air Physical Exam General Appearance: WD/WN Eyes: normal inspection ENT: normal ENT inspection Neck: supple, no adenopathy Respiratory/Chest: chest non-tender, lungs clear Cardiovascular: regular rate, rhythm Abdomen: normal bowel sounds, non tender, soft Extremities: normal range of motion, non-tender Neurologic/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: 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9 % Basophils (%) (Auto) 0.1 % Neutrophils # (Auto) 15.02 K/uL Lymphocytes # (Auto) 0.55 K/uL Monocytes # (Auto) 0.52 K/uL Eosinophils # (Auto) 0.31 K/uL Basophils # (Auto) 0.01 K/uL RDW Standard Deviation 49.1 fL RDW Coefficient of Variation 15.4 % Immature Granulocyte % (Auto) 0.3 % Immature Granulocyte # (Auto) 0.05 K/uL Prothrombin Time 12.4 SECONDS Prothromb Time International Ratio 1.2 Activated Partial Thromboplast Time 29.7 SECONDS Partial Thromboplastin Ratio 1.1 Sodium Level 136 mmol/L Potassium Level 4.2 mmol/L Chloride Level 101 mmol/L Carbon Dioxide Level 25 mmol/L Anion Gap 10.0 mmol/L Blood Urea Nitrogen 26 mg/dl Creatinine 1.30 mg/dl Est Creatinine Clear Calc Drug Dose 44.5 ml/min Estimated GFR () 45.8 Estimated GFR (Non- 39.5 BUN/Creatinine Ratio 19.8 Random Glucose 114 mg/dl Calcium Level 9.3 mg/dl Total Bilirubin 0.5 mg/dl Aspartate Amino Transf (AST/SGOT) 10 U/L Alanine Aminotransferase (ALT/SGPT) 15 U/L Alkaline Phosphatase 81 U/L Troponin I < 0.015 ng/ml 0.017 ng/ml Total Protein 7.2 gm/dl Albumin 3.4 gm/dl Globulin 3.8 gm/dl Albumin/Globulin Ratio 0.9 Procalcitonin 0.92 ng/ml Thyroid Stimulating Hormone (TSH) 2.360 uIu/ml Bedside Lactic Acid Venous 5.14 mmol/L Lactic Acid Level 4.8 mmol/L Lipase 41 U/L Random Cortisol 59.13 mcg/dl Test 02/20/17 21:48 02/21/17 03:40 02/21/17 10:41 02/21/17 12:02 Bedside Glucose 143 mg/dl 149 mg/dl White Blood Count 14.65 K/uL Red Blood Count 3.72 M/uL Hemoglobin 10.9 g/dL Hematocrit 32.7 % Mean Corpuscular Volume 87.9 fL Mean Corpuscular Hemoglobin 29.3 pg Mean Corpuscular Hemoglobin Concent 33.3 g/dl Platelet Count 279 K/uL Mean Platelet Volume 9.5 fL Neutrophils (%) (Auto) 87.9 % Lymphocytes (%) (Auto) 3.5 % Monocytes (%) (Auto) 3.2 % Eosinophils (%) (Auto) 5.0 % Basophils (%) (Auto) 0.1 % Neutrophils # (Auto) 12.87 K/uL Lymphocytes # (Auto) 0.52 K/uL Monocytes # (Auto) 0.47 K/uL Eosinophils # (Auto) 0.73 K/uL Basophils # (Auto) 0.01 K/uL RDW Standard Deviation 50.1 fL RDW Coefficient of Variation 15.5 % Immature Granulocyte % (Auto) 0.3 % Immature Granulocyte # (Auto) 0.05 K/uL Sodium Level 136 mmol/L Potassium Level 4.3 mmol/L Chloride Level 104 mmol/L Carbon Dioxide Level 25 mmol/L Anion Gap 7.0 mmol/L Blood Urea Nitrogen 31 mg/dl Creatinine 1.20 mg/dl Est Creatinine Clear Calc Drug Dose 49.3 ml/min Estimated GFR () 50.5 Estimated GFR (Non- 43.6 BUN/Creatinine Ratio 26.0 Random Glucose 149 mg/dl Lactic Acid Level 2.1 mmol/L Calcium Level 8.5 mg/dl Phosphorus Level 3.5 mg/dl Magnesium Level 1.4 mg/dl Total Bilirubin 0.6 mg/dl Aspartate Amino Transf (AST/SGOT) 7 U/L Alanine Aminotransferase (ALT/SGPT) 9 U/L Alkaline Phosphatase 62 U/L Troponin I 0.020 ng/ml < 0.015 ng/ml Total Protein 6.1 gm/dl Albumin 2.9 gm/dl Globulin 3.2 gm/dl Albumin/Globulin Ratio 0.9 Random Vancomycin Level 20.8 mcg/ml Diagnostic Results CT SCAN OF THE ABDOMEN AND PELVIS WITHOUT CONTRAST CLINICAL HISTORY: Fever, sepsis, abdominal pain. COMPARISON STUDY: No previous studies for comparison. TECHNIQUE: CT scan of the abdomen and pelvis was performed from the lung bases to the proximal femurs. Images are reviewed in the axial, sagittal, and coronal planes. IV contrast was not administered for this examination. CT DOSE: 3213.03 mGy.cm FINDINGS: Lower chest: There is a trace left pleural effusion. There are left basal airspace opacities, likely atelectatic. An inflammatory process could appear similar and clinical correlation is advocated Liver: The unenhanced liver is normal in size, contour, and attenuation. There is no intrahepatic biliary ductal dilatation. Gallbladder: Unremarkable. Spleen: Normal in size and attenuation. Pancreas: Unremarkable. Adrenal glands: Unremarkable. Kidneys: The unenhanced kidneys are normal in size without hydronephrosis. There is no contour deforming renal mass lesion. No renal calculi are identified. Bowel: There are no transition zones indicate bowel obstruction. There are few scattered colonic diverticula. There are no acute peridiverticular inflammatory changes. The appendix is not visualized with certainty. There are no findings to indicate acute appendicitis. There is borderline rectal wall thickening. This may be secondary to a nondistended segment Peritoneum: There is no intraperitoneal free air or abdominal ascites. Vasculature: The abdominal aorta is normal in course and caliber. Adenopathy: There are borderline enlarged external iliac and inguinal lymph nodes. Pelvic viscera: There is an indwelling Das catheter. Skeletal structures: No destructive osseous lesions are seen. IMPRESSION: 1. Study limited due to the lack of intravenous and oral contrast as well as motion artifact 2. No evidence of bowel obstruction. No evidence of free air 3. No renal, ureteral, or bladder calculi identified 4. Borderline rectal wall thickening, a finding which is possibly secondary to a nondistended segment 5. No evidence of acute diverticulitis 6. Borderline enlarged external iliac and inguinal lymph nodes. Electronically signed by: Dwight Magana M.D. CHEST ONE VIEW PORTABLE CLINICAL HISTORY: Aspiration over night COMPARISON STUDY: Chest radiograph and chest CT February 20, 2017. FINDINGS: Lung volumes are normal. There is no pneumothorax or pleural effusion. There is no evidence of pulmonary edema. Cardiomegaly is unchanged. Mild left basilar opacity persists. IMPRESSION: 1. No change in mild left basilar opacity. Atelectasis is favored although pneumonia would be difficult to exclude. 2. Moderate cardiomegaly without evidence of pulmonary edema. Electronically signed by: Cyril Ortega M.D. 02/21/2017 8:30 AM Assessment and Plan UTI/PNA Treat with IV Levaquin and Rocephin Panculture IV fluids. Recheck BMP in am. Parkinsons disease Continue home meds PT and OT eval Neuro input appreciated. DM2 Continue with metformin check A1c. SSI. Pemphigus Continue with OP immunosuppressants HTN Hold BP meds for now until BP improves
--- NOTE | 2017-02-21 16:04 | Palliative Care Consultation ---
Consultation Date of Consultation: February 21, 2017. Requesting Physician: Rodo Johnson PA-C Attending Physician: Dr. Siegel, Dr. Cronin Reason for Consultation: Goals of care History of Present Illness This 76 year old female patient with a history of dementia, Parkinson's disease , DM2, htn, and Pemphigus presented to the ED yesterday from home with c/o increased confusion and weakness. She lives at home with her daughter/POA, Pili Crook, who provided most history. Patient was staying in the [facility] from October to February 12, 2017. She was just brought home to live with her daughter because the patient did not want to live in the residential any more. Apparently she was diagnosed with a UTI at the [facility] and had a course of antibiotics. At home, her weakness and confusion were worsening. Patient had several falls at home over the last week, including a fall in the driveway on the very day she returned to home. Pili states that patient was requiring Sandrita lift to get out of bed into chair/wheelchair. In ED, UA was positive for UTI (culture since has had NGTD), and was hypotensive. Responded to IVF, admitted to telemetry. Patient was transferred to ICU after a certain lab study was shown to be positive/elevated for concern of sepsis. She has since improved and is hemodynamically stable. Was seen by speech therapy and neurology at bedside today. Did well with solids and thin liquids. Neurologist recommended an increase in carbidopa/levodopa dose. Given the patient's over all decline in condition as evidenced by UTI, possible aspiration, pneumonia, pressure ulcers, frequent falls, and worsening of Parkinson's symptoms, palliative care consulted to assist in establishing goals of care. I met first with patient's daughter/POA, Pili Crook. Pili is concerned about her mom's worsening condition and is worried she is no longer able to care for her at home. Pili is very realistic about her mother's prognosis and feels she is "end-stage." I explained that given all the signs of progressing disease (as mentioned above), it would not be unreasonable to say her mother's prognosis could be six months or less and I agreed she is approaching end-stage. Patient has a living will which states she would not want any life-prolonging measures when was at end-stage, including CPR, intubation, feeding tube, or dialysis. She is a level 5 DNR/DNI per previous discussion. I then met with the patient and spoke of the same things. Patient is aware that she will be going to SNF after discharge. Goal is for comfort, but patient still wants to come back to the hospital if indicated as she is " not ready to ." She c/o pain 5/10 in her back and neck from lying in bed. She is requesting to get OOB. Past Medical/Surgical History Medical History: as above Social History Smoking Status: Light Tobacco Smoker History of Alcohol Use: No Drug Use: none Marital Status: Occupation Status: unemployed Review of Systems Constitutional: + fatigue, + weakness ENT: + trouble swallowing (whole pills) Respiratory: + cough, + dyspnea on exertion, No dyspnea at rest Cardiac: No chest pain, No edema Abdomen: No nausea, No pain, No vomiting Musculoskeletal: + see HPI Female : No problem reported Psychiatric: No anxiety, No depression symptoms Allergies Coded Allergies: No Known Allergies (Unverified , 02/20/17) Medications Current Inpatient Medications Medications (Trade) Dose Ordered Sig/Julián Route Start Time Stop Time Status Last Admin Dose Admin Sodium Chloride (Nss 1000ml) 1,000 ml @ 100 mls/hr Q10H IV 02/20/17 19:30 03/22/17 19:29 02/21/17 12:07 100 MLS/HR Acetaminophen (Tylenol Tab) 650 mg Q4H PRN PO 02/20/17 18:00 03/22/17 17:59 Zolpidem Tartrate 5 mg 5 mg HSZ PRN PO 02/20/17 18:00 03/22/17 17:59 Levofloxacin/Prmx (Levaquin / D5W/ Premixed D5W) 100 ml @ 100 mls/hr Q24H IV 02/21/17 18:00 02/25/17 23:59 Azathioprine (Imuran Tab) 50 mg DAILY PO 02/21/17 09:00 03/23/17 08:59 02/21/17 08:15 50 MG Insulin Aspart (novoLOG ASPART) ACHS SC 02/20/17 21:00 03/22/17 20:59 Metformin HCl (Glucophage Tab) 850 mg TIDM PO 02/21/17 07:15 03/23/17 07:59 Future Hold Polyethylene (Miralax Powder Packet) 17 gm DAILY PRN PO 02/20/17 18:15 03/22/17 18:14 Tramadol HCl 50 mg 50 mg Q6H PRN PO 02/20/17 18:15 03/22/17 18:14 02/20/17 21:06 50 MG Ceftriaxone Sodium/Dextrose (Rocephin Inj/ Dextrose Add-[place] 50ML) 50 ml @ 100 mls/hr DAILY@2200 IV 02/20/17 22:00 02/27/17 21:59 02/20/17 21:49 100 MLS/HR Enoxaparin Sodium (Lovenox Inj) 30 mg Q12H SQ 02/21/17 09:00 03/23/17 08:59 02/21/17 08:10 30 MG Fentanyl Citrate (Fentanyl Inj) 50 mcg Q2H PRN IV 02/21/17 04:00 03/07/17 03:59 02/21/17 08:19 50 MCG Multivitamins Therapeutic (Cerovite Liquid) 5 ml QAM PO 02/22/17 09:00 03/24/17 08:59 Lansoprazole (Prevacid Solutab) 30 mg DAILY PO 02/22/17 09:00 03/24/17 08:59 Aspirin (Aspirin Chew) 81 mg QAM PO 02/22/17 09:00 03/24/17 08:59 Carbidopa/Levodopa (Sinemet 25/ 250MG Tab) 1 tab QID PO 02/21/17 13:30 03/23/17 13:29 Entacapone (Comtan) 200 mg QID PO 02/21/17 13:30 03/23/17 13:29 Physical Exam Date Time Temp Pulse Resp B/P Pulse Ox O2 Delivery O2 Flow Rate FiO2 02/21/17 13:00 98 24 100 02/21/17 11:45 99 Room Air 02/21/17 11:00 99 22 98 02/21/17 10:31 97 14 108/76 95 Room Air 02/21/17 10:00 91 22 103/49 02/21/17 09:30 96 24 111/54 91 02/21/17 09:00 96 22 111/44 02/21/17 08:30 110 21 132/54 92 02/21/17 08:15 97 Room Air 02/21/17 08:15 37.1 106 18 132/59 90 Room Air 02/21/17 08:00 96 24 118/45 95 02/21/17 07:45 102 23 120/48 92 02/21/17 07:30 104 26 121/71 92 02/21/17 07:15 97 22 115/54 93 02/21/17 07:00 162 22 101/55 02/21/17 06:00 92 20 94/48 96 Room Air 02/21/17 04:00 37.0 98 22 101/43 96 02/21/17 04:00 95 Room Air 02/21/17 03:45 108 25 105/55 93 02/21/17 03:31 101 20 97/47 96 02/21/17 03:15 98 21 98/45 78 02/21/17 03:00 105 24 123/44 89 02/21/17 02:45 114 21 95/46 88 02/21/17 02:30 102 22 100/46 94 02/21/17 02:15 102 22 99/45 94 02/21/17 00:30 98 22 96/46 99 02/21/17 00:00 37.0 104 23 96/49 93 02/20/17 23:59 95 Room Air 02/20/17 23:45 95 22 100/43 95 02/20/17 23:00 100 23 96/46 02/20/17 22:30 104 24 103/50 89 02/20/17 22:01 105 25 102/82 91 02/20/17 21:30 106 23 111/50 95 02/20/17 21:00 104 23 109/49 95 02/20/17 20:59 102 23 108/51 02/20/17 20:15 102 24 125/54 95 02/20/17 20:00 37.3 110 25 102/56 02/20/17 19:35 37.1 102 22 110/57 95 Room Air 02/20/17 18:55 36.8 105 20 97/60 96 Room Air 02/20/17 18:13 120 18 107/44 95 Room Air 02/20/17 17:35 121 22 93/54 96 Room Air 02/20/17 15:41 118 24 99/64 96 Room Air General Appearance: no apparent distress, + obese ENT: hearing grossly normal Neck: supple, no JVD Respiratory: no respiratory distress, no accessory muscle use, + pertinent finding (room air) Cardiovascular: regular rate, rhythm, + normal peripheral pulses Abdomen: non tender, soft Musculoskeletal: pertinent finding (there is some rigidity noted of upper extremities) Neurologic/Psychiatric: alert, normal mood/affect, oriented x 3, + pertinent finding Laboratory Results Last 24 Hours Test 02/20/17 15:24 02/20/17 18:00 02/20/17 20:14 02/20/17 21:48 Bedside Lactic Acid Venous 5.14 mmol/L Lactic Acid Level 4.8 mmol/L Troponin I 0.017 ng/ml Lipase 41 U/L Random Cortisol 59.13 mcg/dl Bedside Glucose 143 mg/dl Test 02/21/17 03:40 02/21/17 10:41 02/21/17 12:02 White Blood Count 14.65 K/uL Red Blood Count 3.72 M/uL Hemoglobin 10.9 g/dL Hematocrit 32.7 % Mean Corpuscular Volume 87.9 fL Mean Corpuscular Hemoglobin 29.3 pg Mean Corpuscular Hemoglobin Concent 33.3 g/dl Platelet Count 279 K/uL Mean Platelet Volume 9.5 fL Neutrophils (%) (Auto) 87.9 % Lymphocytes (%) (Auto) 3.5 % Monocytes (%) (Auto) 3.2 % Eosinophils (%) (Auto) 5.0 % Basophils (%) (Auto) 0.1 % Neutrophils # (Auto) 12.87 K/uL Lymphocytes # (Auto) 0.52 K/uL Monocytes # (Auto) 0.47 K/uL Eosinophils # (Auto) 0.73 K/uL Basophils # (Auto) 0.01 K/uL RDW Standard Deviation 50.1 fL RDW Coefficient of Variation 15.5 % Immature Granulocyte % (Auto) 0.3 % Immature Granulocyte # (Auto) 0.05 K/uL Sodium Level 136 mmol/L Potassium Level 4.3 mmol/L Chloride Level 104 mmol/L Carbon Dioxide Level 25 mmol/L Anion Gap 7.0 mmol/L Blood Urea Nitrogen 31 mg/dl Creatinine 1.20 mg/dl Est Creatinine Clear Calc Drug Dose 49.3 ml/min Estimated GFR () 50.5 Estimated GFR (Non- 43.6 BUN/Creatinine Ratio 26.0 Random Glucose 149 mg/dl Lactic Acid Level 2.1 mmol/L Calcium Level 8.5 mg/dl Phosphorus Level 3.5 mg/dl Magnesium Level 1.4 mg/dl Total Bilirubin 0.6 mg/dl Aspartate Amino Transf (AST/SGOT) 7 U/L Alanine Aminotransferase (ALT/SGPT) 9 U/L Alkaline Phosphatase 62 U/L Troponin I 0.020 ng/ml < 0.015 ng/ml Total Protein 6.1 gm/dl Albumin 2.9 gm/dl Globulin 3.2 gm/dl Albumin/Globulin Ratio 0.9 Random Vancomycin Level 20.8 mcg/ml Bedside Glucose 149 mg/dl Assessment & Plan Palliative Performance Scale: 30 % Problem list: Weakness Ambulatory dysfunction/bed bound Advanced Parkinson's disease UTI SIRS Pneumonia ?Aspiration LIONEL- resolved Goals of care (Z51.5) Palliative care recommendations: -DNR/DNI per previous discussion -In my own opinion, given the patient's acute and chronic issues with progression of disease and worsening functional status, it would not be unreasonable to say this patient's prognosis could be six months or less. I explained this to Pili, daughter/POA, and she agreed. I stressed that the patient certainly could live longer, could also be shorter. She understood and denied questions/concerns. -Goal is for comfort, but also to try and "get some strength back" per the patient. Overall I believe the patient and daughter are realistic about goals and prognosis -Has pain in back and neck- would encourage use of Tramadol at this time. Would discontinue IV fentanyl. -Plan is for SNF skilled on discharge, then long-term placement. We did discuss hospice as an end-of-life option and the daughter agreed. -Living will is in EMR on previous admission. See discussion above. Thank you kindly for this consult. I will follow as needed.
[2017-02-21] MEDS: LEVOFLOXACIN / D5W 500 MG in PREMIXED IN D5W 100 ML IV SCH (17:11)
[2017-02-21] MEDS: CEFTRIAXONE SOD INJ 1 GM in DEXTROSE 5% ADD-VANTAGE 50ML 50 ML IV SCH (22:02)
[2017-02-21] MEDS: TRAMADOL HCL 50 MG TAB PO PRN (22:06)
[2017-02-22] MEDS: SODIUM CHLORIDE 0.9% 1000ML 1,000 ML IV SCH ×3 (01:45→22:00)
[2017-02-22 04:17] VITALS: BP 103/62; PULSE 79; TEMP 36.9; O2SAT 94
[2017-02-22] MEDS: TRAMADOL HCL 50 MG TAB PO PRN (06:04)
[2017-02-22 07:07] LABS: HEMATOCRIT 29.2 % (37-47); MEAN CORPUSCULAR HEMOGLOBIN 28.9 pg (25-34); MEAN CORPUSCULAR HGB CONC 32.9 g/dl (32-36); MEAN PLATELET VOLUME 9.9 fL (7.4-10.4); PLATELET COUNT 225 K/uL (130-400); RED BLOOD COUNT 3.32 M/uL (4.2-5.4)
[2017-02-22 07:31] VITALS: BP 115/66; PULSE 79; TEMP 36.9; O2SAT 95
[2017-02-22 07:38] LABS: CREATININE 0.66 mg/dl (0.60-1.20)
[2017-02-22] MEDS: INSULIN ASPART 100 UNITS/ML 3 ML PEN SC SCH ×4 (07:51→21:00)
[2017-02-22] MEDS: ASPIRIN 81 MG CHEW PO SCH (07:52)
[2017-02-22] MEDS: LANSOPRAZOLE SOLUTAB 30 MG PO SCH (07:52)
[2017-02-22] MEDS: CARBIDOPA/LEVODOPA 25-250 1 EA TAB PO SCH ×4 (07:52→22:01)
[2017-02-22] MEDS: AZATHIOPRINE 50 MG TAB PO SCH (07:53)
[2017-02-22] MEDS: ENTACAPONE 200 MG TAB PO SCH ×4 (07:53→22:02)
[2017-02-22] MEDS: MULTIVITAMINS W/MINERALS 15ML UDP PO SCH (07:54)
[2017-02-22] MEDS: ENOXAPARIN 30 MG/0.3 ML SYR SQ SCH ×2 (07:54→22:01)
[2017-02-22] MEDS: MAGNESIUM OXIDE 400 MG TAB PO SCH ×2 (10:05→22:01)
--- NOTE | 2017-02-22 11:19 | Neurology Progress Notes ---
Neurology Progress Note Date of Service February 22, 2017. Subjective Patient is up sitting in a chair and feeling better. Her parkinsonism is better and she has less tremor and better movement of her limbs. She has no complaint of pain. Objective Date Time Temp Pulse Resp B/P Pulse Ox O2 Delivery O2 Flow Rate FiO2 02/22/17 08:00 Room Air 02/22/17 07:31 36.9 79 19 115/66 95 Room Air 02/22/17 04:17 36.9 79 18 103/62 94 Room Air 02/22/17 04:00 Room Air 02/22/17 00:00 Room Air 02/21/17 23:41 37.0 94 18 121/65 97 Room Air 02/21/17 20:00 95 Room Air 02/21/17 19:34 36.8 95 18 114/70 95 Room Air 02/21/17 16:00 95 Room Air 02/21/17 16:00 36.6 91 24 107/57 95 Room Air 02/21/17 13:00 98 24 100 02/21/17 11:45 99 Room Air Last 24 Hours Test 02/21/17 12:02 02/21/17 17:10 02/21/17 20:22 02/22/17 06:36 Troponin I < 0.015 ng/ml Bedside Glucose 147 mg/dl 150 mg/dl 124 mg/dl Test 02/22/17 06:55 White Blood Count 5.70 K/uL Red Blood Count 3.32 M/uL Hemoglobin 9.6 g/dL Hematocrit 29.2 % Mean Corpuscular Volume 88.0 fL Mean Corpuscular Hemoglobin 28.9 pg Mean Corpuscular Hemoglobin Concent 32.9 g/dl RDW Standard Deviation 51.2 fL RDW Coefficient of Variation 16.0 % Platelet Count 225 K/uL Mean Platelet Volume 9.9 fL Creatinine 0.66 mg/dl Est Creatinine Clear Calc Drug Dose 90.8 ml/min Estimated GFR () 98.8 Estimated GFR (Non- 85.2 Exam: She is awake and alert. Speech is without aphasia or dysarthria. Mood and affect seem normal and appropriate. There is no nystagmus and extraocular muscles are intact. There is no facial droop. She has some mild masklike face and bradykinesia but this is much improved compared to yesterday. Strength is symmetrical in the limbs and she is moving them better. Current Inpatient Medications Medications (Trade) Dose Ordered Sig/Julián Route Start Time Stop Time Status Last Admin Dose Admin Sodium Chloride (Nss 1000ml) 1,000 ml @ 100 mls/hr Q10H IV 02/20/17 19:30 03/22/17 19:29 02/22/17 07:55 100 MLS/HR Acetaminophen (Tylenol Tab) 650 mg Q4H PRN PO 02/20/17 18:00 03/22/17 17:59 Zolpidem Tartrate 5 mg 5 mg HSZ PRN PO 02/20/17 18:00 03/22/17 17:59 Levofloxacin/Prmx (Levaquin / D5W/ Premixed D5W) 100 ml @ 100 mls/hr Q24H IV 02/21/17 18:00 02/25/17 23:59 02/21/17 17:11 100 MLS/HR Azathioprine (Imuran Tab) 50 mg DAILY PO 02/21/17 09:00 03/23/17 08:59 02/22/17 07:53 50 MG Insulin Aspart (novoLOG ASPART) ACHS SC 02/20/17 21:00 03/22/17 20:59 02/22/17 07:51 3 UNITS Metformin HCl (Glucophage Tab) 850 mg TIDM PO 02/21/17 07:15 03/23/17 07:59 Future Hold Polyethylene (Miralax Powder Packet) 17 gm DAILY PRN PO 02/20/17 18:15 03/22/17 18:14 Tramadol HCl 50 mg 50 mg Q6H PRN PO 02/20/17 18:15 03/22/17 18:14 02/22/17 06:04 50 MG Ceftriaxone Sodium/Dextrose (Rocephin Inj/ Dextrose Add-[place] 50ML) 50 ml @ 100 mls/hr DAILY@2200 IV 02/20/17 22:00 02/27/17 21:59 02/21/17 22:02 100 MLS/HR Enoxaparin Sodium (Lovenox Inj) 30 mg Q12H SQ 02/21/17 09:00 03/23/17 08:59 02/22/17 07:54 30 MG Fentanyl Citrate (Fentanyl Inj) 50 mcg Q2H PRN IV 02/21/17 04:00 03/07/17 03:59 02/21/17 08:19 50 MCG Multivitamins Therapeutic (Cerovite Liquid) 5 ml QAM PO 02/22/17 09:00 03/24/17 08:59 02/22/17 07:54 5 ML Lansoprazole (Prevacid Solutab) 30 mg DAILY PO 02/22/17 09:00 03/24/17 08:59 02/22/17 07:52 30 MG Aspirin (Aspirin Chew) 81 mg QAM PO 02/22/17 09:00 03/24/17 08:59 02/22/17 07:52 81 MG Carbidopa/Levodopa (Sinemet 25/ 250MG Tab) 1 tab QID PO 02/21/17 13:30 03/23/17 13:29 02/22/17 07:52 1 TAB Entacapone (Comtan) 200 mg QID PO 02/21/17 13:30 03/23/17 13:29 02/22/17 07:53 200 MG Magnesium Oxide (Mag-Ox Tab) 400 mg BID PO 02/22/17 09:00 03/24/17 08:59 02/22/17 10:05 400 MG Impression 1. Advanced Parkinson's disease. She continues to have rigidity, bradykinesia, gait issues, and tremor despite her current medication regimen, however, she is improved on the increased dose of Sinemet compared to yesterday.. 2. Dementia She has a relatively mild vascular/aging dementia and is functioning fairly well This is stable Plan 1. Continue carbidopa/levodopa 25/250, 1 tablet 4 times a day taken with entacapone 200 mg 4 times a day. Entacapone should not be taken separately. 2. As an outpatient she could be switched to Stalevo 150, 2 tablets 4 times a day to keep the regimen simplified, or just simply give her prescriptions for the generic carbidopa levodopa 25/250 and the entacapone and she could take them together.. 3. Physical and occupational therapy consults Consider rehabilitation hospital stay for leg strengthening and gait training. I no further neurologic limitations to make at this time. Please contact me if I can be of further assistance on this case. Otherwise, she follows up with [facility] neurology as an outpatient.
[2017-02-22 11:39] VITALS: BP 108/67; PULSE 79; TEMP 36.9; O2SAT 93
--- NOTE | 2017-02-22 12:35 | Hospitalist Progress Note ---
Hospitalist Progress Note Date of Service February 22, 2017. Subjective Pt evaluation today including: conversation w/ patient Voiding: wesley catheter in place Medications Medications (Trade) Dose Ordered Sig/Julián Route Start Time Stop Time Status Last Admin Dose Admin Levofloxacin/Prmx (Levaquin / D5W/ Premixed D5W) 100 ml @ 100 mls/hr Q24H IV 02/21/17 18:00 02/25/17 23:59 02/21/17 17:11 100 MLS/HR Aspirin (Ecotrin Tab) 81 mg DAILY PO 02/21/17 09:00 02/21/17 09:15 DC 02/21/17 08:15 81 MG Azathioprine (Imuran Tab) 50 mg DAILY PO 02/21/17 09:00 03/23/17 08:59 02/21/17 08:15 50 MG Pantoprazole Sodium (Protonix Tab) 40 mg DAILY PO 02/21/17 09:00 02/21/17 09:10 DC 02/21/17 08:15 40 MG Enoxaparin Sodium (Lovenox Inj) 30 mg Q12H SQ 02/21/17 09:00 03/23/17 08:59 02/21/17 20:39 30 MG Carbidopa/Levodopa (Sinemet 25/ 250MG Tab) 1 tab QID PO 02/21/17 13:30 03/23/17 13:29 02/21/17 20:38 1 TAB Entacapone (Comtan) 200 mg QID PO 02/21/17 13:30 03/23/17 13:29 02/21/17 22:02 200 MG Objective Vital Signs Date Time Temp Pulse Resp B/P Pulse Ox O2 Delivery O2 Flow Rate FiO2 02/22/17 04:17 36.9 79 18 103/62 94 Room Air 02/22/17 04:00 Room Air 02/22/17 00:00 Room Air 02/21/17 23:41 37.0 94 18 121/65 97 Room Air 02/21/17 20:00 95 Room Air 02/21/17 19:34 36.8 95 18 114/70 95 Room Air 02/21/17 16:00 95 Room Air 02/21/17 16:00 36.6 91 24 107/57 95 Room Air 02/21/17 13:00 98 24 100 02/21/17 11:45 99 Room Air 02/21/17 11:00 99 22 98 02/21/17 10:31 97 14 108/76 95 Room Air 02/21/17 10:00 91 22 103/49 02/21/17 09:30 96 24 111/54 91 02/21/17 09:00 96 22 111/44 02/21/17 08:30 110 21 132/54 92 02/21/17 08:15 97 Room Air 02/21/17 08:15 37.1 106 18 132/59 90 Room Air 02/21/17 08:00 96 24 118/45 95 02/21/17 07:45 102 23 120/48 92 02/21/17 07:30 104 26 121/71 92 Physical Exam General Appearance: WD/WN, no apparent distress Eyes: normal inspection ENT: normal ENT inspection Neck: supple, no adenopathy Respiratory/Chest: chest non-tender, lungs clear Cardiovascular: regular rate, rhythm, no gallop, no murmur Abdomen: normal bowel sounds, non tender, soft Extremities: + pedal edema Neurologic/Psychiatric: arm maker II-XII nml as tested, no motor/sensory deficits, oriented x 3 Laboratory Results Last 24 Hours Test 02/21/17 10:41 02/21/17 12:02 02/21/17 17:10 02/21/17 20:22 Bedside Glucose 149 mg/dl 147 mg/dl 150 mg/dl Troponin I < 0.015 ng/ml Test 02/22/17 06:36 02/22/17 06:55 Bedside Glucose 124 mg/dl White Blood Count 5.70 K/uL Red Blood Count 3.32 M/uL Hemoglobin 9.6 g/dL Hematocrit 29.2 % Mean Corpuscular Volume 88.0 fL Mean Corpuscular Hemoglobin 28.9 pg Mean Corpuscular Hemoglobin Concent 32.9 g/dl RDW Standard Deviation 51.2 fL RDW Coefficient of Variation 16.0 % Platelet Count 225 K/uL Mean Platelet Volume 9.9 fL Diagnostic Results CHEST ONE VIEW PORTABLE CLINICAL HISTORY: Aspiration over night COMPARISON STUDY: Chest radiograph and chest CT February 20, 2017. FINDINGS: Lung volumes are normal. There is no pneumothorax or pleural effusion. There is no evidence of pulmonary edema. Cardiomegaly is unchanged. Mild left basilar opacity persists. IMPRESSION: 1. No change in mild left basilar opacity. Atelectasis is favored although pneumonia would be difficult to exclude. 2. Moderate cardiomegaly without evidence of pulmonary edema. Electronically signed by: Cyril Ortega M.D. 02/21/2017 8:30 AM Dictated Date/Time: 02/21/2017 8:29 AM Assessment and Plan UTI/PNA Treat with IV Levaquin and Rocephin Panculture. Blood cultures are negative todate. IV fluids.DC once po intake is satisfactory Recheck BMP in am. DC wesley catheter Parkinsons disease Continue home meds (ok with substitution as per Neuro) PT and OT eval Neuro input appreciated. DM2 Continue with metformin check A1c. SSI. Pemphigus Continue with OP immunosuppressants HTN BP stable. Was not on any agents as OP.. Hypomagnesemia Replete serum magnesium
[2017-02-22 15:46] VITALS: BP 118/75; PULSE 75; TEMP 36.8; O2SAT 97
[2017-02-22] MEDS: METFORMIN HCL 500 MG TAB PO SCH (17:21)
[2017-02-22] MEDS: LEVOFLOXACIN / D5W 500 MG in PREMIXED IN D5W 100 ML IV SCH (17:21)
[2017-02-22 19:17] VITALS: BP 113/65; PULSE 75; TEMP 36.7; O2SAT 97
[2017-02-22] MEDS: CEFTRIAXONE SOD INJ 1 GM in DEXTROSE 5% ADD-VANTAGE 50ML 50 ML IV SCH (22:00)
[2017-02-22 23:38] VITALS: BP 115/71; PULSE 81; TEMP 37; O2SAT 96
[2017-02-23 03:49] VITALS: BP 127/71; PULSE 78; TEMP 37.1; O2SAT 96
[2017-02-23 05:52] LABS: BASO % 0.2 %; BASO ABS # 0.01 K/uL (0-0.2); COMPLETE YES; EOS % 16.6 %; IG% 0.2 %; LYMPH % 24.4 %; MEAN CELL VOLUME 88.1 fL (80-100); MEAN CORPUSCULAR HEMOGLOBIN 28.4 pg (25-34); MEAN CORPUSCULAR HGB CONC 32.3 g/dl (32-36); MEAN PLATELET VOLUME 10.1 fL (7.4-10.4); MONO % 10.2 %; NEUT % 48.4 %; PLATELET COUNT 274 K/uL (130-400); RED BLOOD COUNT 3.52 M/uL (4.2-5.4)
[2017-02-23 06:38] LABS: BUN/CREATININE RATIO 19.3 (10-20); CREATININE 0.54 mg/dl (0.60-1.20); MAGNESIUM 1.7 mg/dl (1.8-2.4)
[2017-02-23 07:36] VITALS: BP 135/71; PULSE 75; TEMP 36.6; O2SAT 98
[2017-02-23 07:38] LABS: ESTIMATED AVERAGE GLUCOSE 146 mg/dl; HA1C FLAG Normal (Normal)
[2017-02-23] MEDS: SODIUM CHLORIDE 0.9% 1000ML 1,000 ML IV SCH (07:47)
[2017-02-23] MEDS: CARBIDOPA/LEVODOPA 25-250 1 EA TAB PO SCH ×2 (07:48→13:27)
[2017-02-23] MEDS: LANSOPRAZOLE SOLUTAB 30 MG PO SCH (07:48)
[2017-02-23] MEDS: MAGNESIUM OXIDE 400 MG TAB PO SCH (07:48)
[2017-02-23] MEDS: AZATHIOPRINE 50 MG TAB PO SCH (07:48)
[2017-02-23] MEDS: ENTACAPONE 200 MG TAB PO SCH ×2 (07:48→13:27)
[2017-02-23] MEDS: MULTIVITAMINS W/MINERALS 15ML UDP PO SCH (07:49)
[2017-02-23] MEDS: ENOXAPARIN 30 MG/0.3 ML SYR SQ SCH (07:49)
[2017-02-23] MEDS: METFORMIN HCL 500 MG TAB PO SCH ×2 (07:50→13:27)
[2017-02-23] MEDS: ASPIRIN 81 MG CHEW PO SCH (07:51)
[2017-02-23] MEDS: INSULIN ASPART 100 UNITS/ML 3 ML PEN SC SCH ×2 (07:54→13:26)
[2017-02-23 08:00] VITALS: O2SAT 98
[2017-02-23 12:00] VITALS: O2SAT 98
[2017-02-23 12:09] VITALS: BP 144/74; PULSE 71; TEMP 36.7; O2SAT 98
--- NOTE | 2017-02-23 12:12 | Cardiology Consultation ---
Cardiology Consultation Date of Consultation: February 23, 2017. Requesting Physician: Dr. Siegel Attending Physician: Dr. Morris Reason for Consultation: Atrial fibrillation Pt evaluation today including: conversation w/ patient, physical exam, chart review, lab review, review of studies, review of inpatient medication list, conversation w/ attending History of Present Illness Ms. Nicole is a 76-year-old female with a past medical history significant for Parkinson's disease, dementia, type 2 diabetes mellitus, and pemphigus who was admitted on 02/20/17 due to altered mental status. Patient had also recently sustained a fall prior to admission. In the ED she was found to be hypotensive and UA was positive for UTI. She was also found to have left lower lobe pneumonia. She was started on IV fluids and IV antibiotics. Her initial EKG showed atrial fibrillation with a ventricular response rate of around 115 bpm. Upon telemetry review, she remained in atrial fibrillation for about 4.5 hours before spontaneously converting to sinus rhythm. She has remained in sinus rhythm throughout the remainder of the hospitalization. She is currently asymptomatic. She denies chest pain or other anginal type symptoms. She denies shortness of breath, orthopnea, or PND. She notes mild edema of her feet and hands. She denies palpitations. She notes lightheadedness with changing positions. She denies syncope or presyncope. She reports bruising of her right arm secondary to a fall, which she sustained prior to admission. She denies any bleeding such as melena, hematochezia, or hematuria. She denies cerebrovascular symptoms. Review of Systems: As noted in HPI. All other ROS otherwise negative. Past Medical/Surgical History B/L cataract surgery Family History No pertinent family history Her father had a myocardial infarction, but she is unsure as to how old he was. No other family history of CAD. Social History Smoking Status: Light Tobacco Smoker History of Alcohol Use: No She occasionally smokes a corn cob pipe. She denies alcohol or drugs. Review of Systems Respiratory: + cough, + dyspnea on exertion, No dyspnea at rest Cardiac: No chest pain, No edema Allergies Coded Allergies: No Known Allergies (Unverified , 02/20/17) Medications Current Inpatient Medications Medications (Trade) Dose Ordered Sig/Julián Route Start Time Stop Time Status Last Admin Dose Admin Sodium Chloride (Nss 1000ml) 1,000 ml @ 100 mls/hr Q10H IV 02/20/17 19:30 03/22/17 19:29 02/23/17 07:47 100 MLS/HR Acetaminophen (Tylenol Tab) 650 mg Q4H PRN PO 02/20/17 18:00 03/22/17 17:59 Zolpidem Tartrate 5 mg 5 mg HSZ PRN PO 02/20/17 18:00 03/22/17 17:59 Levofloxacin/Prmx (Levaquin / D5W/ Premixed D5W) 100 ml @ 100 mls/hr Q24H IV 02/21/17 18:00 02/25/17 23:59 02/22/17 17:21 100 MLS/HR Azathioprine (Imuran Tab) 50 mg DAILY PO 02/21/17 09:00 03/23/17 08:59 02/23/17 07:48 50 MG Insulin Aspart (novoLOG ASPART) ACHS SC 02/20/17 21:00 03/22/17 20:59 02/23/17 07:54 4 UNITS Polyethylene (Miralax Powder Packet) 17 gm DAILY PRN PO 02/20/17 18:15 03/22/17 18:14 Tramadol HCl 50 mg 50 mg Q6H PRN PO 02/20/17 18:15 03/22/17 18:14 02/22/17 06:04 50 MG Ceftriaxone Sodium/Dextrose (Rocephin Inj/ Dextrose Add-[place] 50ML) 50 ml @ 100 mls/hr DAILY@2200 IV 02/20/17 22:00 02/27/17 21:59 02/22/17 22:00 100 MLS/HR Enoxaparin Sodium (Lovenox Inj) 30 mg Q12H SQ 02/21/17 09:00 03/23/17 08:59 02/23/17 07:49 30 MG Fentanyl Citrate (Fentanyl Inj) 50 mcg Q2H PRN IV 02/21/17 04:00 03/07/17 03:59 02/21/17 08:19 50 MCG Multivitamins Therapeutic (Cerovite Liquid) 5 ml QAM PO 02/22/17 09:00 03/24/17 08:59 02/23/17 07:49 5 ML Lansoprazole (Prevacid Solutab) 30 mg DAILY PO 02/22/17 09:00 03/24/17 08:59 02/23/17 07:48 30 MG Aspirin (Aspirin Chew) 81 mg QAM PO 02/22/17 09:00 03/24/17 08:59 02/23/17 07:51 81 MG Carbidopa/Levodopa (Sinemet 25/ 250MG Tab) 1 tab QID PO 02/21/17 13:30 03/23/17 13:29 02/23/17 07:48 1 TAB Entacapone (Comtan) 200 mg QID PO 02/21/17 13:30 03/23/17 13:29 02/23/17 07:48 200 MG Magnesium Oxide (Mag-Ox Tab) 400 mg BID PO 02/22/17 09:00 03/24/17 08:59 02/23/17 07:48 400 MG Metformin HCl (Glucophage Tab) 500 mg TIDM PO 02/22/17 16:45 03/24/17 16:44 02/23/17 07:50 500 MG Physical Exam Vital Signs Past 12 Hours Date Time Temp Pulse Resp B/P Pulse Ox O2 Delivery O2 Flow Rate FiO2 02/23/17 08:00 98 Room Air 02/23/17 07:36 36.6 75 20 135/71 98 Room Air 02/23/17 04:00 Room Air 02/23/17 03:49 37.1 78 20 127/71 96 Room Air 02/23/17 00:00 Room Air 02/22/17 23:38 37.0 81 20 115/71 96 Room Air Constitutional: Alert, oriented, in no acute distress HEENT: Head is atraumatic and normocephalic. EOMs intact. Sclera anicteric. Face is symmetric. No perioral cyanosis. Mucous membranes moist. Neck: Supple, no appreciable JVD but difficult exam due to thick neck Pulmonary: Normal respiratory effort, clear to auscultation Cardiac: Regular rate and rhythm, normal S1 and S2, no gallops, no rubs, no murmurs Extremities: Trace pedal edema. No clubbing or cyanosis. Pulses intact. Abdomen: Normal bowel sounds, soft, non-tender, no abdominal mass palpated Skin: Normal skin color, turgor, and pigmentation, no rash, no skin lesions Neurological: Oriented to person, place, and time Data Laboratory Results: Last 24 Hours Test 02/22/17 16:05 02/22/17 20:10 02/23/17 05:11 02/23/17 05:12 Bedside Glucose 109 mg/dl 143 mg/dl Sodium Level 140 mmol/L Potassium Level 4.0 mmol/L Chloride Level 107 mmol/L Carbon Dioxide Level 26 mmol/L Anion Gap 7.0 mmol/L Blood Urea Nitrogen 10 mg/dl Creatinine 0.54 mg/dl Est Creatinine Clear Calc Drug Dose 109.7 ml/min Estimated GFR () 105.5 Estimated GFR (Non- 91.0 BUN/Creatinine Ratio 19.3 Random Glucose 126 mg/dl Calcium Level 9.0 mg/dl Magnesium Level 1.7 mg/dl White Blood Count 4.10 K/uL Red Blood Count 3.52 M/uL Hemoglobin 10.0 g/dL Hematocrit 31.0 % Mean Corpuscular Volume 88.1 fL Mean Corpuscular Hemoglobin 28.4 pg Mean Corpuscular Hemoglobin Concent 32.3 g/dl Platelet Count 274 K/uL Mean Platelet Volume 10.1 fL Neutrophils (%) (Auto) 48.4 % Lymphocytes (%) (Auto) 24.4 % Monocytes (%) (Auto) 10.2 % Eosinophils (%) (Auto) 16.6 % Basophils (%) (Auto) 0.2 % Neutrophils # (Auto) 1.98 K/uL Lymphocytes # (Auto) 1.00 K/uL Monocytes # (Auto) 0.42 K/uL Eosinophils # (Auto) 0.68 K/uL Basophils # (Auto) 0.01 K/uL RDW Standard Deviation 51.2 fL RDW Coefficient of Variation 16.0 % Immature Granulocyte % (Auto) 0.2 % Immature Granulocyte # (Auto) 0.01 K/uL Estimated Average Glucose 146 mg/dl Hemoglobin A1c 6.7 % Test 02/23/17 06:47 02/23/17 10:48 Bedside Glucose 129 mg/dl 115 mg/dl Head CT: No intra or extra-axial mass lesions are visualized. There is no CT evidence of acute cortical infarction. There is no evidence of midline shift. There is no acute hemorrhage. No calvarial fractures are visualized. There are patchy white matter hypodensities likely on a small vessel basis. There is no evidence of pathologic ventricular dilatation. There is no evidence of acute sinusitis EKG 02/20/17: Atrial fibrillation with a ventricular response rate of 115 bpm. Left axis deviation. Voltage criteria for LVH. EKG 02/21/17: Sinus rhythm. Left axis deviation. Voltage criteria for LVH. Telemetry reviewed: She was in atrial fibrillation for about 4.5 hours upon arrival. She then converted to sinus rhythm. She has remained in normal sinus rhythm and sinus tachycardia throughout the rest of the hospitalization. Assessment & Plan ASSESSMENT/PLAN: 1. Atrial fibrillation: She was in atrial fibrillation upon initial presentation to the hospital on 02/20/17, and she remained in it for about 4.5 hours before spontaneously converting to sinus rhythm. This is a new diagnosis for her, and it is unclear what her atrial fibrillation burden is at this time. She is not anticoagulated or on any rate lowering medications. A rate control strategy would be the preferred initial treatment for her arrhythmia as she appeared to be asymptomatic with the a fib. It would be reasonable to add a low dose beta rpecious to her medication regimen prior to discharge, as it does appear as though her blood pressure will allow it. Patient also has an elevated CHADSVASc score of at least 4 (age x2, diabetes, female), therefore anticoagulation therapy is indicated for thromboembolic prophylaxis. It would be a worthwhile discussion to have with the patient and her family in regards to what they would prefer. Given her history of falls, Pradaxa may be a good choice as it has a reversal agent. If anticoagulation is not a good option, or she and her family would not like to begin an anticoagulant, could also consider a loop recorder implantation to monitor her atrial fibrillation burden. Pt seen and examined, consult reviewed. Agree with above. Sha Morris MD Thank You
[2017-02-23 14:16] VITALS: BP 144/74; PULSE 71; TEMP 36.7; O2SAT 98
[2017-02-23] MEDS ORDERED: PRD75 PO (14:47)
[2017-02-23] MEDS ORDERED: LVQ500 PO (14:47)
--- NOTE | 2017-02-23 14:49 | Discharge Instructions ---
Discharge Instructions Date of Service February 23, 2017. Admission Reason for Admission: Hypotension (Arterial) Discharge Discharge Diagnosis / Problem: Pneumonia, Dehydration Discharge Goals Goal(s): Decrease discomfort Activity Recommendations Activity Limitations: as noted below Lifting Limitations: gradually increase as tolerated Shower/Bathe: no limitations . Instructions / Follow-Up Instructions / Follow-Up PCP in one to two weeks With Cardiology in one to two weeks Current Hospital Diet Patient's current hospital diet: Diabetes Type 2 Diet, AHA Diet (Heart Healthy) Discharge Diet Recommended Diet: Diabetes Type 2 Diet Pending Studies Studies pending at discharge: no Laboratory Results Hemoglobin A1c Test 02/23/17 05:12 Range/Units Estimated Average Glucose 146 mg/dl Hemoglobin A1c 6.7 H 4.5-5.6 % Medical Emergencies . Who to Call and When: Medical Emergencies: If at any time you feel your situation is an emergency, please call 911 immediately. . Non-Emergent Contact Non-Emergency issues call your: Primary Care Provider Call Non-Emergent contact if: you have a fever . Past History Medical & Surgical History: (1) Leukocytosis (2) Parkinson disease (3) Hypertension (4) Atrial fibrillation (5) Gait disorder . "Provider Documentation" section prepared by Dean Siegel. . 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 VTE Core Measure Inpt VTE Proph given/why not?: SCD's
[2017-02-23] MEDS ORDERED: LEVOFLOXACIN 500 MG TAB PO SCH (17:00)
--- NOTE | 2017-02-23 19:31 | Discharge Summary ---
Discharge Summary Date of Service February 23, 2017. Discharge Summary Admission Date: February 20, 2017 at 18:52 Discharge Date: February 23, 2017 Discharge Disposition: Rehab Principal Diagnosis: Acute Renal failure, Pneumonia, Atrial fibrillation Problems/Secondary Diagnoses: Parkinsons disease Immunizations: Influenza Vaccine Date: Nov 24, 2010 History of Tetanus Vaccine?: No History of Pneumococcal: Yes Pneumococcal Date: Nov 24, 2010 History of Hepatitis B Vaccine: No Procedures: Head CT: No intra or extra-axial mass lesions are visualized. There is no CT evidence of acute cortical infarction. There is no evidence of midline shift. There is no acute hemorrhage. No calvarial fractures are visualized. There are patchy white matter hypodensities likely on a small vessel basis. There is no evidence of pathologic ventricular dilatation. There is no evidence of acute sinusitis EKG 02/20/17: Atrial fibrillation with a ventricular response rate of 115 bpm. Left axis deviation. Voltage criteria for LVH. EKG 02/21/17: Sinus rhythm. Left axis deviation. Voltage criteria for LVH. Consultations: Cardiology, Neurology Medication Reconciliation New Medications: Dabigatran Elexilate (Pradaxa) 75 Mg Cap 150 MG PO BID for 30 Days, #60 CAP 8 Refills Levofloxacin (Levofloxacin) 500 Mg Tab 500 MG PO DAILY@11 for 10 Days, #10 TAB Continued Medications: Acetaminophen (Tylenol) 500 Mg Tab 1000 MG PO DIRECTED PRN for Pain, TAB Azathioprine (Imuran) 50 Mg Tab 50 MG PO DAILY, TAB Carbidopa/Levodopa/Entacapone 25/100/200MG (Stalevo 100) Tab 2 TAB PO QID, TAB Cyanocobalamin (Cyanocobalamin) 1,000 Mcg/Ml Inj 1000 MCG IM DIRECTED, #7 1000mcg IM x 1 on 07/02/2016, then weekly x 4 weeks, then monthly thereafter. Insulin Aspart (Novolog Flexpen) 100 Units/Ml Inj 0 UNITS SC ACHS, #1 PEN Metformin Hcl (Glucophage) 850 Mg Tab 850 MG PO TIDM, TAB Multivitamins/Minerals (Mvi With Minerals) Tab 1 TAB PO DAILY, #365 TAB Pantoprazole (Protonix) 40 Mg Tab 40 MG PO DAILY, #30 TAB 2 Refills Polyethylene (Miralax) 17 Gm Pow 17 GM PO DAILY PRN for Constipation Tramadol HCl (Tramadol HCl) 50 Mg Tab 50 MG PO Q6H PRN for Pain for 30 Days, #120 TAB 0 Refills Discontinued Medications: Aspirin (Aspirin Ec) 81 Mg Tab 81 MG PO DAILY Sulfa/Trimethoprim (Bactrim Ds 800MG/160MG) Tab 1 TAB PO BID, #6 TAB Discharge Exam Physical Exam: General Appearance: WD/WN Eyes: normal inspection ENT: normal ENT inspection Neck: supple Respiratory/Chest: chest non-tender, lungs clear Cardiovascular: regular rate, rhythm, no edema, no JVD, no murmur Abdomen / GI: normal bowel sounds, non tender, soft Extremities: normal inspection, no calf tenderness, no pedal edema Neurologic/Psychiatric: brass pourer II-XII nml as tested, alert, oriented x 3 Lymphatic: no adenopathy Hospital Course UTI/PNA Treat with IV Levaquin and Rocephin Panculture. Blood cultures are negative todate. IV fluids.DC once po intake is satisfactory Recheck BMP in am. DC wesley catheter Parkinsons disease Continue home meds PT and OT eval Neuro input appreciated. PAF Converted to sinus rhythm spontaneously. Started on Pradaxa 150mg bid. ASA stopped. Follow up with Cardiology, DM2 Continue with metformin SSI. Pemphigus Continue with OP immunosuppressants HTN BP stable. Was not on any agents as OP.. Hypomagnesemia Replete serum magnesium Total Time Spent: Greater than 30 minutes This includes examination of the patient, discharge planning, medication reconciliation, and communication with other providers. Discharge Instructions Please refer to the electronic Patient Visit Report (Discharge Instructions) for additional information. Follow-Up Cardiology in one to two weeks,
[2017-02-23] MEDS ORDERED: DABIGATRAN ELEXILATE 75 MG CAP PO SCH (21:00)
[2017-08-13] MEDS ORDERED: MCTP EXT (13:06)
== END 2017-02-23 16:24 | DRG 689 ==
LOC: ENRESERVTM → ENRESERVDT → EDBD 14:03 → C.EDC 14:04 → C.MSICU 18:52 → EDBEDREQTM 19:07 → EDBEDREQSVC 19:07 → C.2T 02-21 18:44
PROVIDERS: ADMIT Internal Medicine; ATTEND Internal Medicine
DX: N30.00 Acute cystitis without hematuria (principal); J18.9 Pneumonia, unspecified organism; E87.2 Acidosis; M62.82 Rhabdomyolysis; N17.9 Acute kidney failure, unspecified; F03.90 Unspecified dementia, unspecified severity, without behavioral disturbance, psychotic disturbance, mood disturbance, and anxiety; G20 Parkinson's disease; I95.9 Hypotension, unspecified; F17.210 Nicotine dependence, cigarettes, uncomplicated; I10 Essential (primary) hypertension; E11.9 Type 2 diabetes mellitus without complications; Z86.14 Personal history of Methicillin resistant Staphylococcus aureus infection; E66.9 Obesity, unspecified; Z68.34 Body mass index [BMI] 34.0-34.9, adult; R21 Rash and other nonspecific skin eruption; Z66 Do not resuscitate; I48.91 Unspecified atrial fibrillation; R26.9 Unspecified abnormalities of gait and mobility; E83.42 Hypomagnesemia; Z74.01 Bed confinement status; Z79.82 Long term (current) use of aspirin; Z79.899 Other long term (current) drug therapy; Z79.4 Long term (current) use of insulin; Z82.0 Family history of epilepsy and other diseases of the nervous system; Z82.3 Family history of stroke; S80.212A Abrasion, left knee, initial encounter; S40.212A Abrasion of left shoulder, initial encounter; S00.81XA Abrasion of other part of head, initial encounter; W19.XXXA Unspecified fall, initial encounter

== ENCOUNTER 2017-04-03 16:54 | Emergency (ER) | payer BC, OTHER ==
[~2017-04-03] VITALS: Ht 172.7 cm; Wt 100.0 kg
[~2017-04-03 16:54] MED LIST changes: -ASPI81TA28 PO; +MRLP17X PO; +PRD75 PO
[2017-04-03 16:57] VITALS: Ht 172.7 cm; Wt 100.0 kg
[2017-04-03] MEDS ORDERED: ONDANSETRON INJ 2 MG/ML 2 ML VIAL IV STA (17:26)
[2017-04-03] MEDS ORDERED: SODIUM CHLORIDE 0.9% 1000ML 1,000 ML IV STA (17:26)
--- NOTE | 2017-04-03 17:50 | DIAGNOSTIC IMAGING REPORT ---
CHEST ONE VIEW PORTABLE HISTORY: Atypical CHEST PAIN COMPARISON: Chest 02/21/2017. FINDINGS: No pneumothorax. No pleural effusions. A few linear densities at the left lung base favor subsegmental atelectasis or scarring. This has improved. The heart remains mildly enlarged. No new focal lung consolidations to suggest pneumonia. No evidence for pulmonary edema. IMPRESSION: 1. No acute process within the chest. 2. Stable mild cardiomegaly and resolving left basilar subsegmental atelectasis. Electronically signed by: Alexander Ivy M.D. 04/03/2017 5:49 PM Dictated Date/Time: 04/03/2017 5:48 PM
[2017-04-03 18:03] LABS: BASO % 0.4 %; BASO ABS # 0.02 K/uL (0-0.2); COMPLETE YES; EOS % 13.6 %; HEMATOCRIT 32.9 % (37-47); IG% 0.4 %; LYMPH % 18.2 %; LYMPH ABS # 0.83 K/uL (1.2-3.4); MEAN CELL VOLUME 88.2 fL (80-100); MEAN CORPUSCULAR HGB CONC 32.8 g/dl (32-36); MONO % 8.8 %; NEUT % 58.6 %; PLATELET COUNT 299 K/uL (130-400); RED BLOOD COUNT 3.73 M/uL (4.2-5.4); WHITE BLOOD COUNT 4.56 K/uL (4.8-10.8)
[2017-04-03] MEDS ORDERED: ASPI81TA28 PO (18:06)
[2017-04-03] MEDS ORDERED: MULT1CHW37 PO (18:06)
[2017-04-03 18:22] LABS: BUN/CREATININE RATIO 12.7 (10-20); CALCIUM 8.7 mg/dl (8.5-10.1); CREATININE 0.72 mg/dl (0.60-1.20); POTASSIUM 3.7 mmol/L (3.5-5.1)
[2017-04-03 19:24] LABS: MANUAL MICROSCOPIC REQUIRED? NO; REVIEW REQ? NO; URINE APPEARANCE CLEAR (CLEAR); URINE BILIRUBIN NEG (NEG); URINE COLOR DK YELLOW; URINE NITRITE POS (NEG); URINE PH 6.5 (4.5-7.5); URINE SPECIFIC GRAVITY 1.008 (1.000-1.030); UROBILINOGEN NEG (NEG)
[2017-04-03] MEDS ORDERED: HYDROCODONE/ACETAMOPHEN 5/325MG TAB PO ONE (19:30)
[2017-04-03] MEDS ORDERED: SULF800T23 PO (19:43)
[2017-04-03 20:05] VITALS: BP 150/71; PULSE 90; TEMP 36.8; O2SAT 98
--- NOTE | 2017-04-04 02:12 | EMERGENCY ROOM VISIT NOTE ---
ED Visit Note First contact with patient: 17:06 Chief Complaint: Chest pain. History of Present Illness: Ms. Nicole is a 77-year-old white female who is brought into the ED via wheelchair with complaints of chest pain, headache, bilateral arm pain, generalized weakness. Patient and daughter reports that she was diagnosed with a urinary tract infection over one week ago. She was seen by her primary care provider and was diagnosed with urinary tract infection and started on Bactrim. Patient reports she has been taking the Bactrim as prescribed but stopped it when she was feeling better. Daughter and patient goes on to report that 4 days ago the patient has been experiencing decreased appetite, nausea, vomiting and diarrhea. This lasted for 2 days and then self resolved. Patient goes on to report that last evening approximately 29 hours ago patient developed chest pain. She places her chest discomfort over the midportion of the chest and left chest. She describes her discomfort as an achy and occasional sharp pain. Her discomfort is nonradiating. Her pain worsens with deep inspiration. She has not identified any alleviating factors related to the pain. She rates her discomfort 6/10. She reports she has not taken any medication for pain prior to arrival at the hospital. Associated with her pain she reports this morning she became nauseated and had one episode of vomiting. Additionally she reports she has been having a bifrontal headache. Her pain is described as a pressure sensation. She has not identified any aggravating or alleviating factors related to the pain. She is unable to rate her discomfort. Her pain is nonradiating. She reports she has not taken any medications for pain prior to arrival at the hospital. Associated with her headache she reports she has been having some intermittent dizziness which she describes as room spinning sensations and a mild nonproductive cough. She denies recent head trauma, visual changes, hearing changes, difficulty speaking, difficulty swallowing, difficulty coordinating body movements, neck pain/stiffness, fevers , chills, sweats, shortness of breath, palpitations, orthopnea, dependent edema , previous clots, claudication, recent surgery, abdominal pain. Lastly patient reports that she has a pain that starts in the right thumb and goes up her right arm, across the neck and then down into the left arm and left thumb. This is been intermittent and ongoing for many months. The exact etiology has not been identified. She reports a the pain is severe and rates her discomfort 8/10. She has not identified any aggravating or alleviating factors related to her pain. She denies any associated weakness/numbness/ tingling, recent neck or extremity trauma. She does report that she has Parkinson and feels that she has had a slight increase in her tremor of her upper extremities. Review of Systems: As noted above in history of present illness. All body systems were reviewed and found to be negative as noted above. Past Medical History: (1) Abrasion (2) Ambulatory dysfunction (3) At high risk for falls (4) Elevated troponin (5) Gait disorder (6) Hypotension (arterial) (7) Leukocytosis (8) Parkinson disease (9) Prolonged Q-T interval on ECG (10) Rhabdomyolysis (11) Sepsis (12) SIRS (systemic inflammatory response syndrome) Current Medications: Medications Dose Route/Sig Max Daily Dose Days Date Category Dose Instructions Aspirin Ec (Aspirin) 81 Mg Tab 81 Mg PO DAILY 04/03/17 Reported Multi Adult Gummies (Multiple Vitamins W/ Minerals) 1 Chw Chw 2 Tab PO QAM 04/03/17 Reported Levofloxacin 500 Mg Tab 500 Mg PO DAILY@11 10 02/23/17 Rx Miralax (Polyethylene) 17 Gm Pow 17 Gm PO DAILY PRN 02/20/17 Reported Novolog Flexpen (Insulin Aspart) 100 Units/Ml Inj 0 Units SC ACHS 10/26/16 Rx Tramadol HCl 50 Mg Tab 50 Mg PO Q6H PRN 30 10/26/16 Rx Stalevo 100 (Carbidopa/Levodopa/Entacapone) Tab 2 Tab PO QID 09/05/16 Reported Tylenol (Acetaminophen) 500 Mg Tab 1,000 Mg PO TID 09/04/16 Reported Imuran (Azathioprine) 50 Mg Tab 50 Mg PO DAILY 09/04/16 Reported Cyanocobalamin 1,000 Mcg/Ml Inj 1,000 Mcg IM DIRECTED 07/01/16 Rx 1000mcg IM x 1 on 07/02/2016, then weekly x 4 weeks, then monthly thereafter. Glucophage (Metformin Hcl) 850 Mg Tab 850 Mg PO TIDM 06/04/15 Reported Allergies to Medications: Patient and daughter denied. Social History: Patient and daughter reports she is not employed; she feels safe in her home environment; they deny tobacco and alcohol use. Physical Examination: Vital Signs: Date Time Temp Pulse Resp B/P (MAP) Pulse Ox O2 Delivery O2 Flow Rate FiO2 04/03/17 20:05 36.8 90 27 150/71 98 04/03/17 19:49 90 27 04/03/17 19:44 89 28 04/03/17 19:39 112 27 04/03/17 19:34 174 27 04/03/17 19:31 150/71 04/03/17 19:29 83 22 04/03/17 19:24 19 04/03/17 19:19 85 19 98 04/03/17 19:14 87 17 99 04/03/17 19:09 89 14 97 04/03/17 19:04 85 15 99 04/03/17 19:01 04/03/17 18:59 84 20 98 04/03/17 18:54 87 14 98 04/03/17 18:49 88 20 99 04/03/17 18:44 91 23 98 04/03/17 18:39 93 19 04/03/17 18:34 88 16 04/03/17 18:31 138/84 04/03/17 18:29 84 15 04/03/17 18:24 86 15 04/03/17 18:19 92 26 04/03/17 18:14 89 18 04/03/17 18:09 85 24 98 04/03/17 18:06 83 18 126/61 97 04/03/17 16:57 36.8 91 20 122/64 96 Room Air GENERAL: 77-year-old female in mild distress due to pain, nontoxic-appearing, afebrile and hemodynamically stable. NEUROLOGICAL: Awake, alert and oriented to person, place and time. Answering questions appropriately and following commands. Good hand eye coordination. No focal motor or sensory deficits. Cranial nerves II through XII grossly intact. Patient does have a tremor of the left upper and left lower extremity. SKIN: Warm, dry and pale. No soft tissue eruptions or trauma noted. HEENT: Atraumatic and normocephalic. Skull: No bony deformity, bony crepitus, depressions or signs of trauma. No raccoon's eyes or gregg signs. No drainage from ears and the nostril; no hemotympanum. Face: No bony tenderness, swelling or erythema. PERRLA. EOMI without nystagmus. Sclera white and conjunctiva pale. No drainage from naris. Oral cavity moist and pink. Pharynx is nonerythematous or edematous. Airway is patent. Speech normal. No lymphadenopathy. Trachea midline. No jugular venous distention. No carotid bruits. BACK: No tenderness over the bony spine. No CVA tenderness. THORAX: Lungs sounds are clear to auscultation and equal bilaterally with symmetrical chest wall. No wheezing, rales or rhonchi. No crepitus, tenderness , subcutaneous air or deformities noted. HEART: Regular rate and rhythm. No gallops, rubs or murmurs are appreciated. ABDOMEN: Obese, soft and nontender. Positive bowel sounds in all quadrants. No guarding, rigidity or organomegaly. EXTREMITIES: Moves all extremities well on command and with purpose. All distal neurovascular statuses are intact and equal bilaterally. No calf tenderness or cords. Mild dependent edema on the left lower ankle/foot. ED Course: Patient is assessed as noted above. Patient's medication list was reviewed. Laboratory Testing: Test 04/03/17 17:50 04/03/17 17:54 04/03/17 19:10 04/03/17 19:21 Range/Units White Blood Count 4.56 4.8-10.8 K/uL Red Blood Count 3.73 4.2-5.4 M/uL Hemoglobin 10.8 12.0-16.0 g/dL Hematocrit 32.9 37-47 % Mean Corpuscular Volume 88.2 80-100 fL Mean Corpuscular Hemoglobin 29.0 25-34 pg Mean Corpuscular Hemoglobin Concent 32.8 32-36 g/dl Platelet Count 299 130-400 K/uL Mean Platelet Volume 9.0 7.4-10.4 fL Neutrophils (%) (Auto) 58.6 % Lymphocytes (%) (Auto) 18.2 % Monocytes (%) (Auto) 8.8 % Eosinophils (%) (Auto) 13.6 % Basophils (%) (Auto) 0.4 % Neutrophils # (Auto) 2.67 1.4-6.5 K/uL Lymphocytes # (Auto) 0.83 1.2-3.4 K/uL Monocytes # (Auto) 0.40 0.11-0.59 K/uL Eosinophils # (Auto) 0.62 0-0.5 K/uL Basophils # (Auto) 0.02 0-0.2 K/uL RDW Standard Deviation 55.7 36.4-46.3 fL RDW Coefficient of Variation 17.3 11.5-14.5 % Immature Granulocyte % (Auto) 0.4 % Immature Granulocyte # (Auto) 0.02 0.00-0.02 K/uL Sodium Level 136 136-145 mmol/L Potassium Level 3.7 3.5-5.1 mmol/L Chloride Level 103 98-107 mmol/L Carbon Dioxide Level 23 21-32 mmol/L Anion Gap 10.0 3-11 mmol/L Blood Urea Nitrogen 9 7-18 mg/dl Creatinine 0.72 0.60-1.20 mg/dl Est Creatinine Clear Calc Drug Dose 79.6 ml/min Estimated GFR () 93.0 Estimated GFR (Non- 80.2 BUN/Creatinine Ratio 12.7 10-20 Random Glucose 99 70-99 mg/dl Calcium Level 8.7 8.5-10.1 mg/dl Total Bilirubin 0.3 0.2-1 mg/dl Direct Bilirubin 0.1 0-0.2 mg/dl Aspartate Amino Transf (AST/SGOT) 6 15-37 U/L Alanine Aminotransferase (ALT/SGPT) 9 12-78 U/L Alkaline Phosphatase 69 45-117 U/L Total Protein 6.1 6.4-8.2 gm/dl Albumin 3.1 3.4-5.0 gm/dl Lipase 45 73-393 U/L Bedside Troponin I < 0.030 0-0.045 ng/ml Urine Color DK YELLOW Urine Appearance CLEAR CLEAR Urine pH 6.5 4.5-7.5 Urine Specific Aldrich 1.008 1.000-1.030 Urine Protein NEG NEG Urine Glucose (UA) NEG NEG Urine Ketones NEG NEG Urine Occult Blood NEG NEG Urine Nitrite POS NEG Urine Bilirubin NEG NEG Urine Urobilinogen NEG NEG Urine Leukocyte Esterase SMALL NEG Urine WBC (Auto) 10-30 0-5 /hpf Urine RBC (Auto) 0-4 0-4 /hpf Urine Hyaline Casts (Auto) 0 0-5 /lpf Urine Epithelial Cells (Auto) 10-20 0-5 /lpf Urine Bacteria (Auto) 4+ NEG Bedside Glucose 103 70-90 mg/dl Urine Culture: Pending. EKG: Was read by myself and reviewed with Dr. Martinez; shows normal sinus rhythm with a ventricular rate of 94 bpm. Left axial deviation. Left ventricular hypertrophy. No acute ST changes indicating ischemia, injury or infarction. This was compared to an EKG from February 2017 in no acute changes were noted. Chest X-Rays: Was reviewed by myself and shows no acute infiltrates, effusions or pneumothorax. Stable mild heart enlargement. No vascular changes. Radiologist notes a few Altaf densities in the left lung base favoring atelectasis or scarring. Compared to previous and no acute changes were noted. Patient was initially hydrated with normal saline and received 4 mg of Zofran IV for nausea. Patient was reassessed multiple times during her stay in the emergency department. On my second reevaluation of the patient she reported resolution of chest pain and headache but she was still having bilateral upper extremity pain. Patient was given 5/325 mg tablet of Zaleski by mouth. Patient's case was reviewed with Dr. Martinez; she independently assessed the patient we agreed on diagnostic approach, treatment, disposition and plan. Patient and her daughter were educated about gary's findings and instructed on her treatment plan; they verbalized understanding and agreement with this plan. Clinical Impression: Urinary tract infection. Chest pain resolved. Headache resolved. Bilateral hand, wrist and arm pain. Decision-Making: Initially my differential diagnosis I considered acute coronary syndrome, hypertensive crisis, pneumothorax, pneumonia,, pulmonary embolism, CVA and other causes. Disposition: Patient discharged home in stable condition accompanied by her daughter; prior to departure she was reassessed and subjectively reported she was feeling much better and continue to report resolution of headache, chest pain and now she has resolution of arm pain. Plan: Patient was prescribed Bactrim DS 2 times a day for 10 days. Patient was encouraged to stay well-hydrated with increased clear fluids. Patient was encouraged to continue current medications as prescribed. Patient was encouraged to follow-up with family physician for recheck in one to 2 days. Patient was encouraged return to the ED for worsening symptoms, return of chest pain, shortness of breath, fevers, back/flank pain, vomiting or any new/ concerning symptoms.
--- NOTE | 2017-04-05 15:53 | EMERGENCY ROOM VISIT NOTE ---
ED Visit Note First contact with patient: 17:06 I discussed the case with the PA and also examined and re-evaluated the patient at bedside myself. Pt with complicated history and recently noncompliant with appropriate use of her antibiotics. Pt with sx and additional CP and HESS. Given negative trop after >24 hr of pain, doubt acs. UA and culture sent - antibiotics initiated again. Pt exam not consistent with pyelo or bacteremia/ sepsis. Doubt cva, dissection, tamponade, effusion, perf, gi bleed, sah/ich, pe , infiltrate. Pt well appearing with complete resolution of symptoms without recurrence here. VS stable. Pt and family agreeable with plan as discussed with PA. I feel intermittent recordings of tachypnea and tachycardia likely due to anxiety about situation. Pt well appearing at DC.
--- NOTE | 2017-04-05 18:15 | Pharmacy Progress Note ---
ED Pharmacist Culture FollowUp Date of Service: Apr 05, 2017. Called patient regarding urine culture, spoke w daughter (who was present during ED visit). Daughter noted she takes care of all of Stephie's meds therefore spoke with her. She noted that Stephie has not worsened, but has also not improved since her visit here. Informed of highly resistant organism with only one oral option (Macrobid). Informed that treatment failures can occur on Macrobid in the elderly and therefore of the importance of outpatient follow-up. Daughter acknowledged understanding. Counseled to stop Bactrim. Prescription for Macrobid 100 mg po BID x10 days called to [facility] at the daughter's request. Case discussed with Edy Polanco, who is the prescribing provider.
[2017-08-13] MEDS ORDERED: MCTP EXT (13:06)
== END 2017-04-03 20:00 | disposition home or self-care (01) ==
LOC: C.EDB 16:55
DX: N39.0 Urinary tract infection, site not specified (principal); R07.9 Chest pain, unspecified; R51 Headache; R11.0 Nausea; G20 Parkinson's disease; Z86.19 Personal history of other infectious and parasitic diseases; Z91.81 History of falling

== ENCOUNTER 2017-08-12 05:21 | Observation (INO) | payer BC ==
[~2017-08-12] VITALS: Ht 172.7 cm; Wt 96.6 kg
[~2017-08-12 05:21] MED LIST changes: +ASPI81TA28 PO; -MULT-513 PO; +MULT1CHW37 PO; -PANT40TA PO; -PRD75 PO
--- NOTE | 2017-08-12 05:55 | EMERGENCY ROOM VISIT NOTE ---
History Report prepared by Jose Alfredo: Michelle Schwartz Under the Supervision of: Dr. Mitzy Garcias D.O. First contact with patient: 05:28 Chief Complaint: FALL Stated Complaint: FALL History of Present Illness The patient is a 77 year old female who presents to the Emergency Room by EMS with complaints of an episode of a fall occurring just prior to arrival. The patient lives with her daughter and fell when she was sitting down to go to the bathroom. She has a history of Diabetes and Parkinson's disease. The patient denies hitting her head or losing consciousness. She notes feeling lightheaded after the fall but did not strike her head.. The patient normally uses a walker to ambulate. The patient describes having frequent episodes of diaphoresis and her hand slipped off of the bedside commode causing her to fall. She notes that she has been feeling well for the past couple days. Per nursing staff, EMS explained that the patient's daughter states she cannot care for the patient. Source of History: patient Onset: just prior to arrival Position: other (generalized) Quality: other (fall) Timing: other (episode) Associated Symptoms: No LOC Review of Systems See HPI for pertinent positives & negatives. A total of 10 systems reviewed and were otherwise negative. Past Medical & Surgical Medical Problems: (1) Abrasion (2) Ambulatory dysfunction (3) At high risk for falls (4) Elevated troponin (5) Gait disorder (6) Hypotension (arterial) (7) Leukocytosis (8) Parkinson disease (9) Prolonged Q-T interval on ECG (10) Rhabdomyolysis (11) Sepsis (12) SIRS (systemic inflammatory response syndrome) Family History No pertinent family history Social History Smoking Status: Current Every Day Smoker Drug Use: none Marital Status: Housing Status: lives with family Occupation Status: unemployed Current/Historical Medications Scheduled Aspirin (Aspirin Ec), 81 MG PO DAILY Azathioprine (Imuran), 50 MG PO DAILY Carbidopa/Levodopa/Entacapone 25/100/200MG (Stalevo 100), 2 TAB PO QID Cyanocobalamin (Cyanocobalamin), 1,000 MCG IM DIRECTED Metformin Hcl (Glucophage), 850 MG PO BID Multiple Vitamins W/ Minerals (Multi Adult Gummies), 2 TAB PO QAM Scheduled PRN Polyethylene (Miralax), 17 GM PO DAILY PRN for Constipation Tramadol HCl (Tramadol HCl), 50 MG PO Q6H PRN for Pain Allergies Coded Allergies: No Known Allergies (Unverified , 08/12/17) Physical Exam Vital Signs Date Time Temp Pulse Resp B/P (MAP) Pulse Ox O2 Delivery O2 Flow Rate FiO2 08/12/17 09:25 96 Room Air 08/12/17 09:22 91 18 146/78 96 Room Air 08/12/17 07:39 79 22 151/81 97 Room Air 08/12/17 05:28 36.7 86 22 150/113 95 Room Air Physical Exam HEENT: Head - normocephalic and atraumatic. Pupils are equal, round, and reactive to light. Extraocular eye muscles are intact and sclera are anicteric. Ears - bilaterally patent canals with no evidence of hemotympanum. Nose - moist nasal mucosa without evidence of trauma or discharge. Mouth - moist buccal mucosa with no trauma to the teeth or signs of malocclusion. Neck: The neck is supple and there is no pain to palpation over the posterior cervical spine and no obvious step-offs or deformities. There is no JVD or tracheal deviation. Chest: There are no signs of deformities, contusions or abrasions to the chest wall. There is no obvious crepitus or paradoxical chest rise. Heart: Regular, rate, and rhythm. There is a normal S1 and S2 with no murmurs, clicks, or gallops appreciated. Lungs: Clear to auscultation bilaterally with no wheezes, rales, or rhonchi. Abdomen: Soft, completely nontender, nondistended, with good bowel sounds. There is no sign of trauma such as contusions, abrasions or penetrations. There are no palpable pulsatile masses or hepatosplenomegaly. There is no guarding, rigidity, or rebound noted. Pelvis: Stable to rock and compression. Extremities: No obvious trauma, deformities, contusions, or edema. There are easily palpable peripheral pulses. Neuro: The patient is awake and alert and easily able to follow commands. Muscle strength is 5 out of 5 in all 4 extremities. Otherwise, neuro exam is unremarkable. Back: The entire thoracic, lumbar, and sacral spine were palpated. There are no obvious step-offs or deformities noted. There are no obvious signs of trauma such as contusions abrasions penetrations noted to the back. Skin: Abrasion to right elbow, contusion to right shoulder, skin break down under right breast, small abrasion on right knee, area of excoriation on right mandible which is chronic. Medical Decision & Procedures Laboratory Results Test 08/12/17 06:05 Immature Granulocyte % (Auto) 0.3 % White Blood Count 6.54 K/uL (4.8-10.8) Red Blood Count 4.08 M/uL (4.2-5.4) Hemoglobin 13.6 g/dL (12.0-16.0) Hematocrit 39.9 % (37-47) Mean Corpuscular Volume 97.8 fL (80-100) Mean Corpuscular Hemoglobin 33.3 pg (25-34) Mean Corpuscular Hemoglobin Concent 34.1 g/dl (32-36) Platelet Count 255 K/uL (130-400) Mean Platelet Volume 10.4 fL (7.4-10.4) Neutrophils (%) (Auto) 69.5 % Lymphocytes (%) (Auto) 20.6 % Monocytes (%) (Auto) 6.7 % Eosinophils (%) (Auto) 2.6 % Basophils (%) (Auto) 0.3 % Neutrophils # (Auto) 4.54 K/uL (1.4-6.5) Lymphocytes # (Auto) 1.35 K/uL (1.2-3.4) Monocytes # (Auto) 0.44 K/uL (0.11-0.59) Eosinophils # (Auto) 0.17 K/uL (0-0.5) Basophils # (Auto) 0.02 K/uL (0-0.2) Immature Granulocyte # (Auto) 0.02 K/uL (0.00-0.02) Total Bilirubin 0.4 mg/dl (0.2-1) Aspartate Amino Transf (AST/SGOT) 16 U/L (15-37) Alanine Aminotransferase (ALT/SGPT) 12 U/L (12-78) Alkaline Phosphatase 89 U/L (45-117) Total Protein 7.1 gm/dl (6.4-8.2) Albumin 3.7 gm/dl (3.4-5.0) Globulin 3.4 gm/dl (2.5-4.0) Albumin/Globulin Ratio 1.1 (0.9-2) Laboratory results per my review. ECG Indication: other (fall) Rate (beats per minute): 85 Rhythm: normal sinus Findings: no acute ischemic change, no ectopy, other (Poor baseline secondary to Parkinson's disease) ED Course 0545: Past medical records reviewed. The patient was evaluated in room A10. A complete history and physical exam was performed. An IV lock was initiated and labs are drawn as above. A twelve-lead EKG was obtained as described above. 0653: plastic extruding machine operator are going to get involved with the patient's case to determine if the patient meets criteria for [facility] facility. 0725: Case management saw the patient and will be talking to the patients daughter at 8 am. 0730: The patient was signed out to Dr. Hough at the change of shifts. Medical Decision The patient is a 77 year old female who presents to the ED with complaints of an episode of a fall. Differential diagnosis includes anemia dehydration, renal insufficiency, hypoglycemia. Last results show: normal white count, normal H & H, normal renal function, glucose 122, LFTs normal. The patient suffered a mechanical fall at home. She has no complaints of pain here in the emergency department. Apparently, the patient's daughter who is her primary provider relations specialist suffered injury herself earlier today and is not able to care for the patient at this time. Case management is currently involved in trying to determine disposition. The case was signed to Dr. Hough change of shift awaiting disposition. Medication Reconcilliation Current Medication List: was personally reviewed by me Blood Pressure Screening Patient's blood pressure: Elevated blood pressure Blood pressure disposition: Elevated BP felt to be situational Impression Primary Impression: Fall Scribe Attestation The scribe's documentation has been prepared under my direction and personally reviewed by me in its entirety. I confirm that the note above accurately reflects all work, treatment, procedures, and medical decision making performed by me. Departure Information Referrals Kojo Cohen MD (PCP) Patient Instructions My [facility] Problem Qualifiers Primary Impression: Fall Encounter type: initial encounter Qualified Codes: W19.XXXA - Unspecified fall, initial encounter
[2017-08-12 06:22] LABS: BASO % 0.3 %; BASO ABS # 0.02 K/uL (0-0.2); COMPLETE YES; EOS % 2.6 %; HEMATOCRIT 39.9 % (37-47); IG% 0.3 %; LYMPH % 20.6 %; LYMPH ABS # 1.35 K/uL (1.2-3.4); MEAN CELL VOLUME 97.8 fL (80-100); MEAN CORPUSCULAR HEMOGLOBIN 33.3 pg (25-34); MEAN CORPUSCULAR HGB CONC 34.1 g/dl (32-36); MEAN PLATELET VOLUME 10.4 fL (7.4-10.4); MONO % 6.7 %; NEUT % 69.5 %; PLATELET COUNT 255 K/uL (130-400); RED BLOOD COUNT 4.08 M/uL (4.2-5.4); WHITE BLOOD COUNT 6.54 K/uL (4.8-10.8)
[2017-08-12 06:40] LABS: BUN/CREATININE RATIO 17.3 (10-20); CALCIUM 9.5 mg/dl (8.5-10.1); CREATININE 0.74 mg/dl (0.60-1.20)
[2017-08-12 06:43] LABS: ALB/GLOB RATIO 1.1 (0.9-2)
--- NOTE | 2017-08-12 09:23 | EMERGENCY ROOM VISIT NOTE ---
ED Visit Note I received this patient in signout at the change of shift from Dr. Garcias pending disposition be a case management. [facility] is not able to accept referrals on the weekends. The patient is not safe to be discharged home as family is not able to care for her currently. The patient will be observed by the hospitalist service pending disposition to a [facility] facility.
[2017-08-12 09:25] VITALS: O2SAT 96; Ht 172.7 cm; Wt 96.6 kg
[2017-08-12] MEDS ORDERED: POLYETHYLENE (MIRALAX) 17 GM PACK PO PRN (10:15)
[2017-08-12] MEDS ORDERED: GLUCAGON FOR INJ 1 MG VIAL SQ PRN (10:15)
[2017-08-12] MEDS ORDERED: GLUCOSE 40% GEL 15 GM TUBE PO PRN (10:15)
[2017-08-12] MEDS ORDERED: MAGNESIUM HYDROXIDE SUSP 30 ML UDC PO PRN (10:15)
[2017-08-12] MEDS ORDERED: ACETAMINOPHEN 325 MG TAB PO PRN (10:15)
[2017-08-12] MEDS ORDERED: GLUCOSE 10 TABS/TUBE PO PRN (10:15)
[2017-08-12] MEDS ORDERED: ALUMINUM/MAGNESIUM/SIMETH (MAALOX MAX) 30 ML UDC PO PRN (10:15)
[2017-08-12] MEDS ORDERED: TRAMADOL HCL 50 MG TAB PO PRN (10:15)
[2017-08-12] MEDS ORDERED: ONDANSETRON INJ 2 MG/ML 2 ML VIAL IV PRN (10:15)
[2017-08-12] MEDS ORDERED: DEXTROSE 50% 50 ML SYR IV PRN (10:15)
--- NOTE | 2017-08-12 10:41 | History and Physical ---
History & Physical Date & Time of Service: Aug 12, 2017 at 10:16 Chief Complaint: FALL Primary Care Physician: Kojo Cohen MD History of Present Illness Source: patient Ms. Nicole is a 77 y/o female with PMHx of T2DM, Parkinsons, HTN, Paroxysmal Atrial Fibrillation, and Pemphigus who present to the ED due to a fall this AM. Patient reports she was trying to get out of bed to use her bedside commode and did not get a good bit tapper on the commode. She reports falling to the floor from a seated position. She reports no acute worsening of pain but reports chronic pain. She did not hit her head or have LOC. When EMS arrived she said they got her up to the stretcher and she had a moment of lightheadedness. She denies any lightheadedness/dizziness or CP prior to the fall. She reports feeling her normal self prior to the fall and currently. She has multiple bruises and abrasions that she is not sure occurred wiShe has Parkinson's and reports she continues to have intermittent leg tremors even when on Stalevo. She states she is largely independent but has assistance for cooking and bathing. She ambulates with a walker or a motorized chair. Her daughter sustained a knee injury yesterday and reports difficulty taking care of her at home. She denies fever/chills, CP, SOB, N/V, abdominal pain, dysuria, constipation/diarrhea. Patient would like to go to [facility] but unable to accept referrals over the weekend. Past Medical/Surgical History 1. T2DM 2. Parkinson's 3. HTN 4. Paroxysmal Atrial Fibrillation 5. Pemphigus Family History Aneurysm Stroke Social History Smoking Status: Former Smoker Smokeless Tobacco Use: No Drug Use: none Marital Status: Housing status: lives with family Occupational Status: unemployed Immunizations Influenza Vaccine Date: Nov 24, 2010 History of Tetanus Vaccine?: No History of Pneumococcal: Yes Pneumococcal Date: Nov 24, 2010 History of Hepatitis B Vaccine: No Multi-Drug Resistant Organisms History of MDRO: No Type of MDRO: MRSA Allergies Coded Allergies: No Known Allergies (Unverified , 08/12/17) Home Medications Scheduled Aspirin (Aspirin Ec), 81 MG PO DAILY Azathioprine (Imuran), 50 MG PO DAILY Carbidopa/Levodopa/Entacapone 25/100/200MG (Stalevo 100), 2 TAB PO QID Cyanocobalamin (Cyanocobalamin), 1,000 MCG IM DIRECTED Metformin Hcl (Glucophage), 850 MG PO BID Multiple Vitamins W/ Minerals (Multi Adult Gummies), 2 TAB PO QAM Scheduled PRN Miconazole Nitrate (Desenex Shake Powder), 1 APPLN EXT UD PRN for Affected Skin Folds Polyethylene (Miralax), 17 GM PO DAILY PRN for Constipation Tramadol HCl (Tramadol HCl), 50 MG PO Q6H PRN for Pain Review of Systems Constitutional: No fever, No chills ENT: No nasal symptoms, No sore throat, No trouble swallowing Respiratory: No cough, No shortness of breath Cardiovascular: No chest pain, No palpitations Abdomen: No pain, No nausea, No vomiting, No diarrhea, No constipation Musculoskeletal: + problem reported (chronic diffuse pain) Genitourinary - Female: No dysuria Neurologic: + balance problems Hematologic / Lymphatic: No abnormal bleeding/bruising, No clotting problems Integumentary: No rash Physical Exam Vital Signs Date Time Temp Pulse Resp B/P (MAP) Pulse Ox O2 Delivery O2 Flow Rate FiO2 08/12/17 09:25 96 Room Air 08/12/17 09:22 91 18 146/78 96 Room Air 08/12/17 07:39 79 22 151/81 97 Room Air 08/12/17 05:28 36.7 86 22 150/113 95 Room Air General Appearance: WD/WN, no apparent distress, + pertinent finding (mask- like face) Head: normocephalic, atraumatic Eyes: sclerae normal ENT: hearing grossly normal Neck: supple, no JVD, trachea midline Respiratory/Chest: lungs clear, normal breath sounds, no respiratory distress, no accessory muscle use, + pertinent finding (diminished at bases) Cardiovascular: regular rate, rhythm, no gallop, no murmur Abdomen/GI: normal bowel sounds, non tender, soft Extremities/Musculoskelatal: no pedal edema, + swelling (trace pitting edema b/ l) Neurologic/Psych: alert, oriented x 3 Skin: normal color, no rash, + pertinent finding (multiple areas of ecchymosis in different healing stages; multiple open abrasions) Diagnostics Laboratory Results Results Past 24 Hours Test 08/12/17 05:34 08/12/17 06:05 Range/Units Bedside Glucose 120 70-90 mg/dl White Blood Count 6.54 4.8-10.8 K/uL Red Blood Count 4.08 4.2-5.4 M/uL Hemoglobin 13.6 12.0-16.0 g/dL Hematocrit 39.9 37-47 % Mean Corpuscular Volume 97.8 80-100 fL Mean Corpuscular Hemoglobin 33.3 25-34 pg Mean Corpuscular Hemoglobin Concent 34.1 32-36 g/dl Platelet Count 255 130-400 K/uL Mean Platelet Volume 10.4 7.4-10.4 fL Neutrophils (%) (Auto) 69.5 % Lymphocytes (%) (Auto) 20.6 % Monocytes (%) (Auto) 6.7 % Eosinophils (%) (Auto) 2.6 % Basophils (%) (Auto) 0.3 % Neutrophils # (Auto) 4.54 1.4-6.5 K/uL Lymphocytes # (Auto) 1.35 1.2-3.4 K/uL Monocytes # (Auto) 0.44 0.11-0.59 K/uL Eosinophils # (Auto) 0.17 0-0.5 K/uL Basophils # (Auto) 0.02 0-0.2 K/uL RDW Standard Deviation 51.1 36.4-46.3 fL RDW Coefficient of Variation 14.2 11.5-14.5 % Immature Granulocyte % (Auto) 0.3 % Immature Granulocyte # (Auto) 0.02 0.00-0.02 K/uL Sodium Level 140 136-145 mmol/L Potassium Level 4.0 3.5-5.1 mmol/L Chloride Level 108 98-107 mmol/L Carbon Dioxide Level 27 21-32 mmol/L Anion Gap 5.0 3-11 mmol/L Blood Urea Nitrogen 13 7-18 mg/dl Creatinine 0.74 0.60-1.20 mg/dl Est Creatinine Clear Calc Drug Dose 76.1 ml/min Estimated GFR () 89.9 Estimated GFR (Non- 77.6 BUN/Creatinine Ratio 17.3 10-20 Random Glucose 122 70-99 mg/dl Calcium Level 9.5 8.5-10.1 mg/dl Total Bilirubin 0.4 0.2-1 mg/dl Aspartate Amino Transf (AST/SGOT) 16 15-37 U/L Alanine Aminotransferase (ALT/SGPT) 12 12-78 U/L Alkaline Phosphatase 89 45-117 U/L Total Protein 7.1 6.4-8.2 gm/dl Albumin 3.7 3.4-5.0 gm/dl Globulin 3.4 2.5-4.0 gm/dl Albumin/Globulin Ratio 1.1 0.9-2 EKG Normal sinus rhythm Possible Left atrial enlargement Left axis deviation Left ventricular hypertrophy Nonspecific ST and T wave abnormality Abnormal ECG When compared with ECG of 03-APR-2017 17:08, No significant change was found Impression Assessment and Plan Ms. Nicole is a 77 y/o female with PMHx of T2DM, Parkinsons, HTN, Paroxysmal Atrial Fibrillation, and Pemphigus who present to the ED due to a fall from a seated position this AM. Mechanical Fall Complicated by Parkinson's Disease: - PT/OT evaluations - patient could not go to [facility] due to no new referrals on Sundays -- Daughter with recent knee injury and unable to care for her at home - Stalevo 2 tabs QID - non-formulary and patient can take own med if brought in T2DM: - Metformin 850 mg BID and SSI HTN: - Documented history - not on medications Paroxysmal Atrial Fibrillation: Currently NSR - Had episode approx 4 hours on previous admission when here for UTI sepsis. - Was D/C'd on anticoagulation - no longer on anticoagulation Pemphigus: - Imuran 50 mg daily DVT Prophylaxis: SCDs Code Status: DO NOT RESUSCITATE Disposition: - Referral to [facility] for rehab - PT/OT/Surgery Specialist Supervising Note- Raj Stallworth MD I examined patient and discussed my analysis and plan with patient and APC. I agree with above note. My exam did not differ from the exam noted above. I answered all questions from patient. Level of Care Med/Surg Advanced Directives Existing Living Will: Yes Existing Power of Director Of Career Resources: Yes Resuscitation Status DO NOT RESUSCITATE VTE Prophylaxis VTE Risk Assessment Done? Y/N: Yes Risk Level: Moderate Given or contraindicated: SCD's Social Service Consult None Apply
[2017-08-12] MEDS: INSULIN ASPART 100 UNITS/ML 3 ML PEN SC SCH ×3 (11:00→20:48)
[2017-08-12 11:09] VITALS: BP 143/79; PULSE 85; TEMP 36.7; O2SAT 97
[2017-08-12] MEDS ORDERED: NURSING VERBAL MED ORDER ONE (11:30)
[2017-08-12] MEDS ORDERED: MICONAZOLE NITRATE POWDER 43 GM EXT PRN (11:45)
[2017-08-12] MEDS ORDERED: IV FLUIDS COMPLETED PRN (14:15)
[2017-08-12 15:12] VITALS: BP 143/72; PULSE 87; TEMP 37; O2SAT 95
[2017-08-12 16:00] VITALS: O2SAT 95
[2017-08-12] MEDS ORDERED: LEVODOPA PO SCH (16:00)
[2017-08-12] MEDS ORDERED: ENTACAPONE PO SCH (16:00)
[2017-08-12] MEDS ORDERED: CARBIDOPA PO SCH (16:00)
[2017-08-12 17:23] LABS: HEMATOCRIT 37.8 % (37-47); MEAN CELL VOLUME 97.2 fL (80-100); MEAN CORPUSCULAR HEMOGLOBIN 33.2 pg (25-34); MEAN CORPUSCULAR HGB CONC 34.1 g/dl (32-36); MEAN PLATELET VOLUME 10.1 fL (7.4-10.4); PLATELET COUNT 261 K/uL (130-400); RED BLOOD COUNT 3.89 M/uL (4.2-5.4); WHITE BLOOD COUNT 7.41 K/uL (4.8-10.8)
[2017-08-12 17:30] LABS: BUN/CREATININE RATIO 16.3 (10-20); CALCIUM 9.6 mg/dl (8.5-10.1); CREATININE 0.72 mg/dl (0.60-1.20); PARTIAL THROMBOPLASTIN RATIO 1.1; POTASSIUM 3.9 mmol/L (3.5-5.1); PROTHROMBIN TIME (PATIENT) 10.8 SECONDS (9.0-12.0)
[2017-08-12] MEDS: METFORMIN HCL 850 MG TAB PO SCH (17:50)
[2017-08-12] MEDS: NON-FORMULARY PATIENT'S OWN MED PO SCH (20:47)
[2017-08-12 23:18] VITALS: BP 147/72; PULSE 89; TEMP 36.6; O2SAT 96
[2017-08-13] VITALS: O2SAT 95
[2017-08-13 06:49] LABS: HEMATOCRIT 39.8 % (37-47); MEAN CELL VOLUME 97.8 fL (80-100); MEAN CORPUSCULAR HEMOGLOBIN 33.2 pg (25-34); MEAN CORPUSCULAR HGB CONC 33.9 g/dl (32-36); MEAN PLATELET VOLUME 10.4 fL (7.4-10.4); PLATELET COUNT 253 K/uL (130-400); RED BLOOD COUNT 4.07 M/uL (4.2-5.4); WHITE BLOOD COUNT 5.39 K/uL (4.8-10.8)
[2017-08-13 07:17] LABS: BUN/CREATININE RATIO 18.3 (10-20); CALCIUM 9.5 mg/dl (8.5-10.1); CREATININE 0.7 mg/dl (0.60-1.20); POTASSIUM 3.7 mmol/L (3.5-5.1)
[2017-08-13 07:28] VITALS: BP 157/89; PULSE 73; TEMP 36.6; O2SAT 92
[2017-08-13] MEDS: METFORMIN HCL 850 MG TAB PO SCH (07:31)
[2017-08-13] MEDS: NON-FORMULARY PATIENT'S OWN MED PO SCH ×2 (07:32→11:33)
[2017-08-13] MEDS ORDERED: AZATHIOPRINE 50 MG TAB PO SCH (08:00)
[2017-08-13] MEDS ORDERED: ASPIRIN 81 MG ECTAB PO SCH (08:00)
[2017-08-13 08:19] LABS: ESTIMATED AVERAGE GLUCOSE 117 mg/dl; HA1C FLAG Normal (Normal)
[2017-08-13] MEDS: INSULIN ASPART 100 UNITS/ML 3 ML PEN SC SCH ×2 (08:39→11:33)
[2017-08-13] MEDS ORDERED: ULT50X PO (09:00)
--- NOTE | 2017-08-13 09:35 | Discharge Instructions ---
Discharge Instructions Date of Service Aug 13, 2017. Admission Reason for Admission: FALL Discharge Discharge Diagnosis / Problem: Mechanical Fall Complicated by Parkinson's Discharge Goals Goal(s): Improve function, Increase independence, Therapeutic intervention Activity Recommendations Activity Level: Assistance Required Therapies: Physical Therapy, Occupational Therapy Weightbearing Status: Left weightbearing (as tolerated), Right weightbearing ( as tolerated) Lifting Limitations: none Exercise/Sports Limitations: as tolerated Shower/Bathe: no limitations . Additional Information Patient informed of condition: Yes Advance Directives: Yes DNR: Yes Level of Care: Skilled Communicable Disease: Yes (H/O MRSA) Prognosis: Stable Das Catheter: No Instructions / Follow-Up Instructions / Follow-Up Ms. Nicole is a 77 y/o female with PMHx of T2DM, Parkinsons, HTN, Paroxysmal Atrial Fibrillation, and Pemphigus who present to the ED due to a fall from a seated position this AM. Mechanical Fall Complicated by Parkinson's Disease: - Reporting that she ambulates with walker and motorized wheelchair when needed ; Patient appears to continue to have intermittent spasm-like tremors of lower extremities on exam; - Upper extremities are non-tremulous - Lives with daughter and son-in-law - Stalevo 2 tabs QID Multiple Abrasions: - Patient has multiple superficial abrasions and some superficial openings in skin folds - Recommend good hygiene and further evaluation by wound care if necessary T2DM: - Metformin 850 mg BID with last A1c of 5.7 - Continue to monitor glucose readings and possible consideration for D/C medications pending monitoring HTN: - Documented history - not on medications - average readings 140-150s/70s Paroxysmal Atrial Fibrillation: Currently NSR - Had episode approx 4 hours on previous admission (February 2017) when here for UTI sepsis. - Was D/C'd on anticoagulation - no longer on anticoagulation - Was asymptomatic with this and could likely have further moments of A Fib; Recommend follow-up with cardiology for ongoing monitoring Pemphigus: - Imuran 50 mg daily Code Status: DO NOT RESUSCITATE - Advanced directive on chart with comfort measures only - POLST completed on previous admission Disposition: - Acute rehab at shelter facility Current Hospital Diet Patient's current hospital diet: Diabetes Type 2 Diet Discharge Diet Recommended Diet: Diabetes Type 2 Diet Pending Studies Studies pending at discharge: no Physician Orders On Transfer POLST Discussion: Not Applicable (POLST previously filled out) Laboratory Results Hemoglobin A1c Test 10/30/17 06:09 Range/Units Estimated Average Glucose 117 mg/dl Hemoglobin A1c 5.7 H 4.5-5.6 % Medical Emergencies . Who to Call and When: Medical Emergencies: If at any time you feel your situation is an emergency, please call 911 immediately. . Non-Emergent Contact Non-Emergency issues call your: Primary Care Provider Call Non-Emergent contact if: you have a fever, your pain is concerning you, you have any medication questions . . "Provider Documentation" section prepared by Maya Tsai. . Core Measure Problem Core Measures: None [place] Drug Monitoring Program Search Results: patient reviewed within database, no issues identified Drug Monitoring Findings: Patient currently on Tramadol. Has some Rx written from hospital due to transfers to SNF. Days prescribed correlate to expected need for new Rx.
[2017-08-13 10:32] VITALS: BP 119/77; PULSE 88; O2SAT 96
[2017-08-13] MEDS ORDERED: MCTP EXT (13:06)
[2017-08-13 14:19] VITALS: BP 119/77; PULSE 88; TEMP 36.6; O2SAT 96
--- NOTE | 2017-08-13 15:10 | Discharge Summary ---
Discharge Summary Date of Service Aug 13, 2017. (Maya Tsai PA-C) Discharge Summary Admission Date: Aug 12, 2017 at 10:14 Discharge Date: Aug 13, 2017 Discharge Disposition: [facility] facility Principal Diagnosis: Mechanical Fall due to Deconditioning and Parkinsons Problems/Secondary Diagnoses: 1. T2DM 2. Parkinson's 3. HTN 4. Paroxysmal Atrial Fibrillation 5. Pemphigus Immunizations: Influenza Vaccine Date: Nov 24, 2010 History of Tetanus Vaccine?: No History of Pneumococcal: Yes Pneumococcal Date: Nov 24, 2010 History of Hepatitis B Vaccine: No Consultations: 1. PT/OT/Tennis Player (Maya Tsai PA-C) Medication Reconciliation New Medications: Miconazole Nitrate (Desenex Shake Powder) 43 Appln/43 Gm Powd 1 APPLN EXT UD PRN for Affected Skin Folds for 30 Days Continued Medications: Aspirin (Aspirin Ec) 81 Mg Tab 81 MG PO DAILY Azathioprine (Imuran) 50 Mg Tab 50 MG PO DAILY, TAB Carbidopa/Levodopa/Entacapone 25/100/200MG (Stalevo 100) Tab 2 TAB PO QID, TAB Cyanocobalamin (Cyanocobalamin) 1,000 Mcg/Ml Inj 1000 MCG IM DIRECTED, #7 1000mcg IM x 1 on 07/02/2016, then weekly x 4 weeks, then monthly thereafter. Metformin Hcl (Glucophage) 850 Mg Tab 850 MG PO BID, TAB Multiple Vitamins W/ Minerals (Multi Adult Gummies) 1 Chw Chw 2 TAB PO QAM Polyethylene (Miralax) 17 Gm Pow 17 GM PO DAILY PRN for Constipation Tramadol HCl (Tramadol HCl) 50 Mg Tab 50 MG PO Q6H PRN for Pain for 3 Days, #12 TAB 0 Refills (This prescription has been renewed) Discharge Exam Review of Systems: Constitutional: No fever, No chills ENT: No nasal symptoms, No sore throat, No trouble swallowing Respiratory: No shortness of breath Cardiovascular: No chest pain, No palpitations Abdomen: No pain, No nausea, No vomiting, No diarrhea, No constipation Musculoskeletal: + problem reported (chronic back pain) Genitourinary - Female: No dysuria Neurologic: + balance problems Hematologic / Lymphatic: No abnormal bleeding/bruising Integumentary: No rash Physical Exam: General Appearance: WD/WN, no apparent distress Eyes: sclerae normal ENT: hearing grossly normal Neck: supple, no JVD, trachea midline Respiratory/Chest: lungs clear, normal breath sounds, no respiratory distress, no accessory muscle use Cardiovascular: regular rate, rhythm, no gallop, no murmur Abdomen / GI: normal bowel sounds, non tender, soft Extremities: no calf tenderness, no pedal edema Neurologic/Psychiatric: alert, normal mood/affect (mask-like face), oriented x 3 Skin: normal color, warm/dry (Maya Tsai, [facility]) Hospital Course ADMISSION: Ms. Nicole is a 77 y/o female with PMHx of T2DM, Parkinsons, HTN, Paroxysmal Atrial Fibrillation, and Pemphigus who present to the ED due to a fall this AM. Patient reports she was trying to get out of bed to use her bedside commode and did not get a good marketing support specialist on the commode. She reports falling to the floor from a seated position. She reports no acute worsening of pain but reports chronic pain. She did not hit her head or have LOC. When EMS arrived she said they got her up to the stretcher and she had a moment of lightheadedness. She denies any lightheadedness/dizziness or CP prior to the fall. She reports feeling her normal self prior to the fall and currently. She has multiple bruises and abrasions that she is not sure occurred wiShe has Parkinson's and reports she continues to have intermittent leg tremors even when on Stalevo. She states she is largely independent but has assistance for cooking and bathing. She ambulates with a walker or a motorized chair. Her daughter sustained a knee injury yesterday and reports difficulty taking care of her at home. She denies fever/chills, CP, SOB, N/V, abdominal pain, dysuria, constipation/diarrhea. Patient would like to go to [facility] but unable to accept referrals over the weekend. HOSPITAL COURSE: Ms. Nicole was admitted for a mechanical fall from a seated position and did not sustain injury. She was living at home but her daughter is unable to care for her at this time due to her own personal injury. Patient reports some difficulty with walking but reports utilizing a cane or motorized chair when needed. She was seen and evaluated by PT/OT services who recommended SNF placement for ongoing therapy. All home medications were continued as originally ordered. She was prescribed Desenex powder for skin folds. Recommend continuing to follow with superficial abrasions and wounds that do not appear to be new from this fall. Patient has a completed POLST that is comfort measures only and DNR status. She is optimal for D/C to [facility] for therapy. Total Time Spent: Greater than 30 minutes This includes examination of the patient, discharge planning, medication reconciliation, and communication with other providers. (Maya Tsai PA-C) Discharge Instructions Please refer to the electronic Patient Visit Report (Discharge Instructions) for additional information. (Maya Tsai PA-C) Additional Copies To Kojo Cohen MD; [facility] Reviewed: Pt Seen/Exam by Me (Denise Mchugh MD) History Physician Farm Equipment Mechanic Supervision Note: I interviewed and examined the patient. Discussed with ELYSSA Tsai and agree with findings and plan as documented in the note. Any exceptions or clarifications are listed here: Patient feeling well, has her typical chronic pain "all over." Otherwise, denies chest pain or shortness of breath, is ready for discharge to [facility] facility. Vitals reviewed No acute distress Regular rate and rhythm, no murmurs gallops rubs Lungs clear to auscultation bilaterally no wheezes crackles rhonchi Abdomen positive bowel sounds soft nontender nondistended Extremities no edema, tremor at rest in the right arm Skin very mild intertrigo under breasts left greater than right 77-year-old female with history of Parkinson's disease, here with fall off the toilet with no significant injuries but with deconditioning Parkinson's disease , needs placement in [facility] facility. -She is stable for discharge today Documented By: Denise Mchugh (Densie Mchugh MD)
[2017-08-13 15:26] VITALS: BP 133/86; PULSE 101; TEMP 36.8; O2SAT 96
== END 2017-08-13 16:30 ==
LOC: EDBD 05:21 → C.EDA 05:22 → C.4E 10:14 → EDBEDREQ 10:21 → ENRESERV 10:30
PROVIDERS: ADMIT Internal Medicine Sports Medicine; ATTEND Family Medicine
DX: S40.011A Contusion of right shoulder, initial encounter (principal); S80.211A Abrasion, right knee, initial encounter; S50.311A Abrasion of right elbow, initial encounter; W18.11XA Fall from or off toilet without subsequent striking against object, initial encounter; G20 Parkinson's disease; I48.0 Paroxysmal atrial fibrillation; I10 Essential (primary) hypertension; E11.9 Type 2 diabetes mellitus without complications; R26.9 Unspecified abnormalities of gait and mobility; L10.9 Pemphigus, unspecified; G89.29 Other chronic pain; F17.200 Nicotine dependence, unspecified, uncomplicated; Z91.81 History of falling; Z79.82 Long term (current) use of aspirin; Z79.84 Long term (current) use of oral hypoglycemic drugs; Z79.899 Other long term (current) drug therapy

== ENCOUNTER 2019-07-18 09:44 | Inpatient (IN) ==
--- OUTSIDE RECORDS SUMMARY | 2019-07-18 09:48 | External Medical Summary | Continuity of Care Document ---
:1940 Author Name Debi Cobb Address Unavailable Unavailable , Care Team Providers Name Role Phone [email or web address] Raj Morris M.D. Unavailable [email or web address] Forrest BISHOP Unavailable Unavailable Unavailable Unavailable Unavailable Problems Dementia (294.20) (F03.90) Parkinson's disease (332.0) (G20) Allergies and Adverse Reactions No Known Allergies (Allergy) Medications hydroCHLOROthiazide 12.5 MG Oral Tablet; TAKE 1 TABLET DAILY . Refills: 0 Lisinopril 20 MG Oral Tablet; TAKE 1 TABLET DAILY. Refills: 0 Stalevo 100 25-100-200 MG Oral Tablet; T CALLY 2 tabs at 6am, 1 tab at 9am, 2 tabs at 12pm, 1 tab at 3pm, 2 tabs at 6pm (total of 8 tabs daily) DO Reema Stephenie Start: 26-May-2015 Quantity: 240 Refills: 5 Aspirin 81 MG TABS; TAKE 1 TABLET DAILY. Start: 20-May-2015 Refills: 0 Triamcinolone Acetonide 0.1 % External Cream Start: 20-May-2015 Refills: 0 predniSONE 10 MG Oral Tablet; 40MG DAILY FOR 2 WEEKS, THEN 35MG DAILY FOR 2 WEEKS, THEN 30MG DAILY UNTIL F/U Start: 20-May-2015 Refills: 0 CellCept 500 MG Oral Tablet; TAKE 1 TABLET TWICE DAILY WITH FOOD. Start: 20-May-2015 Refills: 0 Aspirtab Maximum Strength 500 MG Oral Ta blet; TAKE 1 TABLET EVERY 8 HOURS NEEDED. Start: 09-Mar-2015 Refills: 0 metFORMIN HCl - 850 MG Oral Tablet; TAKE 1 TABLET 3 TIMES DA PRATEEK WITH MEALS. Start: 09-Mar-2015 Refills: 0 Procedures Procedures not documented Immunizations Immunizations not documented Family History Mother Family history of Alzheimer's disease (V17.2) (Z82.0) Status : Active Plan of Treatment Planned Observations Planned Goals not documented Results No Known Results Results not documented
[2019-07-18] MEDS ORDERED: SODIUM CHLORIDE 0.9% 500 ML IV SCH (10:00)
[2019-07-18 10:45] LABS: Basophils # (auto) 0.02 K/uL (0-0.2); Basophils % (auto) 0.3 %; Eosinophils # (auto) 0.15 K/uL (0-0.5); Eosinophils % (auto) 2.2 %; Hematocrit (blood only) 42.7 % (37-47); Hemoglobin 14.3 g/dL (12.0-16.0); Immature Granulocytes # (auto) 0.01 K/uL (0.00-0.02); Immature Granulocytes % (auto) 0.1 %; Lymphocytes # (auto) 0.93 K/uL (1.2-3.4); Lymphocytes % (auto) 13.4 %; Mean Corpuscular Hemoglobin 33.6 pg (25-34); Mean Corpuscular Hgb Conc 33.5 g/dL (32-36); Mean Corpuscular Volume 100.2 fL (80-100); Mean Platelet Volume 9.9 fL (7.4-10.4); Monocytes # (auto) 0.51 K/uL (0.11-0.59); Monocytes % (auto) 7.3 %; Neutrophils # (auto) 5.34 K/uL (1.4-6.5); Neutrophils % (auto) 76.7 %; Platelet Count 262 K/uL (130-400); RDW Coefficient of Variation 13.4 % (11.5-14.5); RDW Standard Deviation 48.7 fL (36.4-46.3); Red Blood Count 4.26 M/uL (4.2-5.4); White Blood Count 6.96 K/uL (4.8-10.8)
--- NOTE | 2019-07-18 10:45 | XRay Report ---
XR ankle LT min 3V routine CLINICAL HISTORY: 79 years-old Female presenting with fall, pain. TECHNIQUE: Frontal, mortise, and lateral views of the left ankle were obtained. COMPARISON: None. FINDINGS: Osteopenia. Ankle mortise congruent. Mild diffuse soft tissue swelling. Abnormal appearance of the ca lcaneus. Evaluation is degraded by overlapping external covering's. Prominent enthesophyte at the richardson gin of plantar fascia. An impacted fracture of the calcaneus cannot be excluded. IMPRESSION: 1. Allowing for osteopenia and overlapping external coverings at the calcaneus, an acute osseous inj ury of the calcaneus cannot be excluded. Recommend dedicated radiographs of the calcaneus with remova l of the covering. Electronically signed by: Frank Ba M.D. 07/18/2019 10:44 AM
--- NOTE | 2019-07-18 10:47 | XRay Report ---
XR femur LT 2V routine CLINICAL HISTORY: 79 years-old Female presenting with fall, left leg pain. TECHNIQUE: Frontal and lateral views of the left femur were obtained. COMPARISON: None. FINDINGS: Left hip joint and left knee joint congruent. Allowing for the degree of osteopenia, no acute fractur e or malalignment. Visualized portion of the bony pelvis intact. Advanced degenerative changes of the knee joint evident in all 3 compartments. Joint space loss at the knee joint is also evident. Promin ent enthesophyte at the insertion of the quadriceps tendon onto the patella. Mild degenerative change s with osteophytosis at the left hip joint. No radiographic soft tissue abnormality. IMPRESSION: 1. Allowing for the degree of osteopenia, no acute osseous injury. 2. Advanced tricompartmental degenerative changes of the left knee. 3. Mild degenerative changes of the left hip. Electronically signed by: Frank Ba M.D. 07/18/2019 10:45 AM
--- NOTE | 2019-07-18 10:49 | XRay Report ---
XR chest 1V portable CLINICAL HISTORY: 79 years-old Female presenting with weakness, left leg pain. TECHNIQUE: Portable upright AP view of the chest was obtained. COMPARISON: 07/14/2018. FINDINGS: Atherosclerosis of the aortic arch. Cardiac silhouette enlarged. Mitral annular calcification suspect ed. Heterogeneous and coarsened lung markings. No focal opacity. No large effusion or pneumothorax. D egenerative changes of the thoracic spine. Upper abdomen normal. IMPRESSION: 1. Cardiomegaly. No other convincing evidence of acute cardiopulmonary disease. Electronically signed by: Frank Ba M.D. 07/18/2019 10:48 AM
--- NOTE | 2019-07-18 10:50 | XRay Report ---
XR knee LT 2V routine CLINICAL HISTORY: 79 years-old Female presenting with fall, pain. TECHNIQUE: Frontal and lateral views of the left knee were obtained. COMPARISON: None. FINDINGS: Osteopenia. Tricompartmental degenerative changes of the knee with severe joint space loss medially. Prominent enthesophyte at the insertion of quadriceps tendon. The degree of osteopenia limits evaluat ion for nondisplaced fracture. Furthermore, the frontal view is slightly rotated resulting in overlap of the fibular head with the lateral tibial plateau. This limits evaluation of the lateral tibial pl ateau for nondisplaced fracture. Allowing for these limitations, no gross evidence of fracture. No ac tolowa dee-ni'-appearing malalignment. No radiographic soft tissue abnormality. IMPRESSION: 1. Allowing for osteopenia and suboptimal positioning, no acute osseous injury. 2. Tricompartmental degenerative changes most severe in the medial compartment. Electronically signed by: Frank Ba M.D. 07/18/2019 10:49 AM
--- NOTE | 2019-07-18 11:00 | XRay Report ---
SINGLE VIEW PELVIS; 2 VIEWS LEFT HIP CLINICAL HISTORY: Fall. Left hip and pelvic pain. FINDINGS: An AP supine view of the pelvis with AP and frog-leg views of the left hip are obtained. Co mparison is made to study dated 05/22/2016. No fracture seen involving the bony pelvis or the right hip . There is an oblique lucency identified within the intertrochanteric left femur, concerning for nond isplaced fracture. There is moderate degenerative joint space narrowing present in both hips. Entheso phytes arise from the anterior superior iliac spines. Degenerative sclerosis is noted in the sacroili ac joints. The overlying soft tissues are normal in appearance. There is no bowel obstruction. IMPRESSION: 1. There is an indeterminant oblique lucency involving the intertrochanteric left femur. A nondistrac duncan fracture is not excluded. Correlation with a CT scan of the left hip is recommended for further a ssessment. 2. No fracture is seen involving the right hip or the bony pelvis. Electronically signed by: Rodo Ramos M.D. 07/18/2019 10:59 AM
--- NOTE | 2019-07-18 11:01 | XRay Report ---
XR tibia fibula LT 2V CLINICAL HISTORY: Left leg pain following fall. COMPARISON: None FINDINGS: No acute fracture of the left tibia or fibula is identified. Subtle contour abnormality of the proximal shaft of the left fibula shown on lateral projection. There is extensive posterior and plantar calcaneal spurring. IMPRESSION: No definite fracture within the left tibia or fibula. Subtle contour abnormality of the p roximal shaft of the left fibula is likely chronic. However, short-term follow-up radiographs are rec ommended to exclude the less likely possibility of a nondisplaced fracture. Electronically signed by: Cyril Ortega M.D. 07/18/2019 10:59 AM
[2019-07-18 11:17] LABS: Alanine Aminotransferase 10 U/L (12-78); Aspartate Aminotransferase 14 U/L (15-37); BUN Creatinine Ratio 15.6 (10-20); Blood Urea Nitrogen 11 mg/dl (7-18); Calcium 9.7 mg/dl (8.5-10.1); Carbon Dioxide 29 mmol/L (21-32); Chloride 104 mmol/L (98-107); Creatinine Clr Calc Pharmacy 73.8 ml/min; Est GFR (African American) 90.2; Est GFR (Non-African American) 77.8; Glucose 142 mg/dl (70-99); Sodium 140 mmol/L (136-145)
[2019-07-18 11:19] LABS: Appearance Urine Clear (Clear); Bacteria Urine Automated 4+ (Negative); Bilirubin Urine Negative (Negative); Blood Urine Negative (Negative); Cast Urine Automated 0 /lpf (0-5); Color Urine Yellow; Epithelial Cell Urine Auto 0-5 /lpf (0-5); Glucose Urine UA Negative (Negative); Ketones Urine Negative (Negative); Leukocyte Esterase Urine 1+ (Negative); Nitrite Urine Negative (Negative); Protein Urine Negative (Negative); RBC Urine Automated 0-4 /hpf (0-4); Specific Gravity Urine 1.009 (1.000-1.030); Urobilinogen Urine Negative (Negative); pH Urine 6.5 (4.5-7.5)
--- NOTE | 2019-07-18 11:27 | CT Scan Report ---
CT OF THE HEAD WITHOUT CONTRAST CLINICAL HISTORY: confusion, fall COMPARISON STUDY: Head CT July 14, 2018. TECHNIQUE: Helical axial images of the head were obtained without IV contrast. Automated exposure con trol was utilized for the study. A dose lowering technique was utilized adhering to the principles o f ALARA. FINDINGS: No acute intracranial hemorrhage, midline shift or mass effect is present. The ventricular system is unremarkable. The basilar cisterns are patent. No extra-axial collections are present. Ther e are no findings to suggest acute dural sinus thrombosis or acute territorial infarct. No significan t calvarial abnormalities are present. Visualized portions of the sinuses and mastoid air cells are c lear. White matter hypodensities are unchanged and suggest small vessel disease. IMPRESSION: 1. No acute intracranial findings. 2. No calvarial fracture. Electronically signed by: Cyril Ortega M.D. 07/18/2019 11:26 AM
[2019-07-18 11:28] LABS: Alkaline Phosphatase 90 U/L (45-117); Bilirubin,Total 0.7 mg/dl (0.2-1); Creatine Kinase 67 U/L (26-192); Globulin 4.1 gm/dl (2.5-4.0); Total Protein 8.1 gm/dl (6.4-8.2); Troponin I < 0.015 ng/ml (0-0.045)
--- NOTE | 2019-07-18 11:30 | CT Scan Report ---
CT SCAN OF THE LEFT HIP WITHOUT IV CONTRAST CLINICAL HISTORY: Fall with left hip pain. Abnormal radiographs. COMPARISON STUDY: Radiographs of the left hip dated 07/18/2019. TECHNIQUE: CT scan of the left hip is performed from the bony pelvis to the femoral shaft. Images are reviewed in the axial, sagittal, and coronal planes. IV contrast was not administered for this exami nation. A dose lowering technique was utilized adhering to the principles of ALARA. FINDINGS: The skeletal structures are osteopenic. There is no evidence of fracture involving the left proximal femur or the visualized left hemipelvis. Moderate joint space narrowing is seen in the left hip joint. There is no evidence of osteonecrosis of the femoral head. No lytic or blastic lesion is seen. There is generalized atrophy of the regional musculature. The overlying soft tissues are normal in appearance. Rectosigmoid fecal impaction is noted. The visualized bladder is grossly normal. Ther e is no left pelvic sidewall or inguinal adenopathy. IMPRESSION: No fracture is identified. The questioned radiographic abnormality was likely artifactual . Electronically signed by: Rodo Ramos M.D. 07/18/2019 11:29 AM
--- NOTE | 2019-07-18 11:31 | CT Scan Report ---
CT cervical spine wo con CLINICAL HISTORY: 79 years-old Female presenting with fall, pain. TECHNIQUE: Multidetector CT of the cervical spine was performed without the use of intravenous contra st. IV contrast: None. One or more dose lowering techniques were used consistent with the principles of ALARA (as low as reasonably achievable), including automatic exposure control, mA or kV adjustment to individual patient size, and/or use of iterative reconstruction. COMPARISON: 02/20/2017. CT DOSE (mGy.cm): The estimated cumulative dose is 1839.24 mGy.cm. FINDINGS: Senior Laboratory Technician topogram: The patient is edentulous. Mildly exaggerated cervical lordosis likely due to exaggerated thoracic kyphosis. Underlying osteopen ia suspected. Vertebral bodies maintain normal height and alignment. Flowing anterior osteophytosis i n the lower cervical spine suggests diffuse idiopathic skeletal hyperostosis. Intervertebral disc hei ghts preserved. Disc osteophyte complexes noted from C4-5 through C6-7. Minimal posterior spondylitic spurring at C5-6 and C6-7. Limited evaluation of the soft tissues of the spinal canal do not demonst rate further effacement or other abnormality. Degenerative changes of the atlantodental articulation. No acute fracture or subluxation. Soft tissue in the external auditory canals likely cerumen. Lung a pices clear. Paraspinal soft tissues within normal limits. IMPRESSION: 1. No acute osseous injury of the cervical spine. 2. Multilevel degenerative changes. Electronically signed by: Frank Ba M.D. 07/18/2019 11:30 AM
--- NOTE | 2019-07-18 11:55 | Emergency Department Note ---
Entered by Eva Carolina acting as a scribe for History of Present Illness General Chief complaint: Fall Time Seen by Provider: 07/18/19 09:46 Source: EMS and RN notes reviewed Limitations: altered mental status History of Present Illness Onset (ago): hour(s) 8 Location: lower extremity (left ankle) Pain Consistency: + other (episode) Quality: + other (fall injury) Associated symptoms: + other (+right knee pain ) The patient is an 79 year old female, with past medical history of Parkinson's and dementia, who presents to the Emergency Room with complaints of an episode of a left ankle injury following a fall that occurred approximately 8 hours ago at 0130 this morning, per the registered nurse. EMT reports the patient fell onto a hardwood floor upon waking up and attempting to go to her bedside commode. EMT notes the patient's daughter helped the patient get back into bed at that time. However, EMT states that a house manager business, who was a combat medic, thought the patient may have broken her left ankle, which prompted the ED visit for the patient. EMT states the patient has good sensation, and they note the patient can move her toes. EMT also notes the patient is complaining of left knee pain. Home Medications Home Medications Medication Instructions Recorded Confirmed Type Adult Multivitamin Gummies 2 tabs PO DAILY 07/14/18 07/18/19 History Desenex 1 applic TOPICAL BID PRN 07/14/18 07/18/19 History acetaminophen [Tylenol Extra 500 mg PO QID PRN 07/14/18 07/18/19 History Strength] amantadine HCl 100 mg PO BID 07/14/18 07/18/19 History aspirin [Aspir-81] 81 mg PO DAILY 07/14/18 07/18/19 History azathioprine [Imuran] 50 mg PO DAILY 07/14/18 07/18/19 History krbhvbycn-nvrufbts-zkjiffrxov 1 tab PO QID 07/14/18 07/18/19 History [Stalevo 200] cyanocobalamin (vitamin B-12) 1,000 mcg IM MONTHLY 07/14/18 07/18/19 History metformin [Glucophage] 850 mg PO BID 07/14/18 07/18/19 History polyethylene glycol 3350 [Miralax] 1 dose PO DAILY PRN 07/14/18 07/18/19 History tramadol [Ultram] 50 mg PO Q6 PRN 07/14/18 07/18/19 History triamcinolone acetonide 1 applic TOPICAL BID PRN 07/14/18 07/18/19 History carbidopa-levodopa 1 tab PO HS 07/18/19 07/18/19 History Allergies Allergy/AdvReac Type Severity Reaction Status Date / Time No Known Allergies Allergy Unverified 07/18/19 10:25 Past Med/Surg History Medical History Urinary tract infection (Acute) Hypertension (Chronic) Parkinson disease (Chronic) Diabetes Paroxysmal atrial fibrillation QT prolongation Family History Other Aneurysm Stroke Social History Preferred Language: Lithuanian Communication Ability: Effective Regulatory Affairs Consultant Required: No Beliefs That Will Affect Care: None Current Living Situation: Family Current Living Situation Comment: lives with daughter Other Information That Helps Us Care for You: No Feels Safe at Home: Yes Safety Concerns: Feels Safe At This Time Smoking Status: Never smoker Hx Alcohol Use: No Hx Substance Use: No Review of Systems See HPI for pertinent positives & negatives. Unobtainable due to cognitive status Physical Exam Vital Signs Vital Signs - 24 hr 07/18/19 09:54 07/18/19 09:57 07/18/19 11:02 Temperature 36.8 C Temperature Source Oral Sepsis Recent Fever Within 48 Hours No Sepsis Action Taken by Nursing No Action Required Pulse Rate 90 86 90 Respiratory Rate 16 20 20 Respiratory Effort / Characteristics Non-Labored Spontaneous Respiratory Depth Normal Blood Pressure 178/84 H 178/84 H 178/84 H Blood Pressure Mean 115 115 115 Blood Pressure Position Lying Pulse Oximetry 95 94 Oxygen Delivery Method Room Air 07/18/19 11:24 07/18/19 11:30 07/18/19 12:00 Temperature Temperature Source Sepsis Recent Fever Within 48 Hours Sepsis Action Taken by Nursing Pulse Rate 94 H 90 93 H Respiratory Rate 24 19 21 Respiratory Effort / Characteristics Respiratory Depth Blood Pressure Blood Pressure Mean Blood Pressure Position Pulse Oximetry 95 Oxygen Delivery Method 07/18/19 12:12 07/18/19 12:30 Temperature Temperature Source Sepsis Recent Fever Within 48 Hours Sepsis Action Taken by Nursing Pulse Rate 91 H Respiratory Rate 20 Respiratory Effort / Characteristics Respiratory Depth Blood Pressure 164/94 H Blood Pressure Mean 117 Blood Pressure Position Pulse Oximetry 95 Oxygen Delivery Method Room Air GENERAL: Patient is in no acute distress. HEENT: No acute trauma, normocephalic atraumatic, mucous membranes dry, no nasal congestion, no scleral icterus. NECK: No stridor, no adenopathy, no meningismus, trachea is midline. Non-tender posterior c-spine. LUNGS: Clear to auscultation bilaterally, no wheeze, no rhonchi, breath sounds equal. HEART: Without murmurs gallops or rubs, regular rate and rhythm. ABDOMEN: Soft, nontender, bowel sounds positive, no hernias, no peritonitis. EXTREMITIES: Patient seems to have pain with movement with left hip, left knee, and left ankle. No gross deformities. No pain to move right lower extremity. No obvious injury to upper extremities. NEUROLOGIC: Awake, confusion noted, no acute motor or sensory deficits, no focal weakness. SKIN: There is no jaundice. The patient has an irritated area of skin under the fold of right breast consistent with yeast. She has a very demarcated patch of erythema to left mid-medial biceps. Course 0949: Past medical records reviewed. The patient was evaluated in room B6. A complete history and physical exam was performed. 1146: I reviewed the patient's [facility]. Dr. Cespedes will evaluate the patient for further management. Consultations Consultation #1: I reviewed the patient's case with Dr. Cespedes-[facility]. Dr. Cespedes will evaluate the patient for further management. Time: 11:46 Administered Medications Discontinued Medications Sodium Chloride (Nss) 500 mls @ 999 mls/hr IV .Q31M DEEDEE Stop: 07/18/19 10:30 Last Infusion: 07/18/19 11:30 Dose: 0 mls/hr Documented by: [id number] Admin: 07/18/19 11:00 Dose: 999 mls/hr Documented by: [id number] Medical Decision Making Differential Diagnosis Differential diagnoses include intracranial bleeding, stroke, C-spine injury, urinary tract infection, dehydration, renal or liver failure, left hip/ knee/ankle fracture, contusion, or strain, amongst others were considered. Medical Records Attestation: I reviewed the patient's medical records. Home Medications Current Medication List: was personally reviewed by me Laboratory Data Attestation: I reviewed the patient's lab results. Result diagrams: 07/18/19 10:35 07/18/19 10:35 Lab Results 07/18/19 07/18/19 07/18/19 Range/Units 10:35 10:35 10:35 WBC 6.96 (4.8-10.8) K/uL RBC 4.26 (4.2-5.4) M/uL Hgb 14.3 (12.0-16.0) g/dL Hct 42.7 (37-47) % MCV 100.2 H (80-100) fL MCH 33.6 (25-34) pg MCHC 33.5 (32-36) g/dL RDW Std Deviation 48.7 H (36.4-46.3) fL RDW Coeff of Segundo 13.4 (11.5-14.5) % Plt Count 262 (130-400) K/uL MPV 9.9 (7.4-10.4) fL Immature Gran % (Auto) 0.1 % Neut % (Auto) 76.7 % Lymph % (Auto) 13.4 % Butts % (Auto) 7.3 % Eos % (Auto) 2.2 % Baso % (Auto) 0.3 % Immature Gran # (Auto) 0.01 (0.00-0.02) K/uL Neut # (Auto) 5.34 (1.4-6.5) K/uL Lymph # (Auto) 0.93 L (1.2-3.4) K/uL Butts # (Auto) 0.51 (0.11-0.59) K/uL Eos # (Auto) 0.15 (0-0.5) K/uL Baso # (Auto) 0.02 (0-0.2) K/uL Sodium 140 (136-145) mmol/L Potassium 4.0 (3.5-5.1) mmol/L Chloride 104 (98-107) mmol/L Carbon Dioxide 29 (21-32) mmol/L Anion Gap 7.0 (3-11) BUN 11 (7-18) mg/dl Creatinine 0.73 (0.6-1.2) mg/dl Est Cr Clr Drug Dosing 73.8 ml/min Est GFR ( Amer) 90.2 Est GFR (Non-Af Amer) 77.8 BUN/Creatinine Ratio 15.6 (10-20) Glucose 142 H (70-99) mg/dl Calcium 9.7 (8.5-10.1) mg/dl Magnesium 2.0 (1.8-2.4) mg/dl Total Bilirubin 0.7 (0.2-1) mg/dl AST 14 L (15-37) U/L ALT 10 L (12-78) U/L Alkaline Phosphatase 90 (45-117) U/L Total Creatine Kinase 67 (26-192) U/L Troponin I < 0.015 Cancelled (0-0.045) ng/ml NT-Pro-B Natriuret Pep (0-1800) pg/ml Total Protein 8.1 (6.4-8.2) gm/dl Albumin 4.0 (3.4-5.0) gm/dl Globulin 4.1 H (2.5-4.0) gm/dl Albumin/Globulin Ratio 1.0 (0.9-2) TSH 2.210 (0.300-4.500) uIu/ml Urine Color Urine Appearance (Clear) Urine pH (4.5-7.5) Ur Specific [place] (1.000-1.030) Urine Protein (Negative) Urine Glucose (UA) (Negative) Urine Ketones (Negative) Urine Blood (Negative) Urine Nitrite (Negative) Urine Bilirubin (Negative) Urine Urobilinogen (Negative) Ur Leukocyte Esterase (Negative) Urine WBC (Auto) (0-5) /hpf Urine RBC (Auto) (0-4) /hpf U Hyaline Cast (Auto) (0-5) /lpf U Epithel Cells (Auto) (0-5) /lpf Urine Bacteria (Auto) (Negative) 07/18/19 07/18/19 Range/Units 10:35 10:55 WBC (4.8-10.8) K/uL RBC (4.2-5.4) M/uL Hgb (12.0-16.0) g/dL Hct (37-47) % MCV (80-100) fL MCH (25-34) pg MCHC (32-36) g/dL RDW Std Deviation (36.4-46.3) fL RDW Coeff of Segundo (11.5-14.5) % Plt Count (130-400) K/uL MPV (7.4-10.4) fL Immature Gran % (Auto) % Neut % (Auto) % Lymph % (Auto) % Butts % (Auto) % Eos % (Auto) % Baso % (Auto) % Immature Gran # (Auto) (0.00-0.02) K/uL Neut # (Auto) (1.4-6.5) K/uL Lymph # (Auto) (1.2-3.4) K/uL Butts # (Auto) (0.11-0.59) K/uL Eos # (Auto) (0-0.5) K/uL Baso # (Auto) (0-0.2) K/uL Sodium (136-145) mmol/L Potassium (3.5-5.1) mmol/L Chloride (98-107) mmol/L Carbon Dioxide (21-32) mmol/L Anion Gap (3-11) BUN (7-18) mg/dl Creatinine (0.6-1.2) mg/dl Est Cr Clr Drug Dosing ml/min Est GFR ( Amer) Est GFR (Non-Af Amer) BUN/Creatinine Ratio (10-20) Glucose (70-99) mg/dl Calcium (8.5-10.1) mg/dl Magnesium (1.8-2.4) mg/dl Total Bilirubin (0.2-1) mg/dl AST (15-37) U/L ALT (12-78) U/L Alkaline Phosphatase (45-117) U/L Total Creatine Kinase (26-192) U/L Troponin I (0-0.045) ng/ml NT-Pro-B Natriuret Pep 203 (0-1800) pg/ml Total Protein (6.4-8.2) gm/dl Albumin (3.4-5.0) gm/dl Globulin (2.5-4.0) gm/dl Albumin/Globulin Ratio (0.9-2) TSH (0.300-4.500) uIu/ml Urine Color Yellow Urine Appearance Clear (Clear) Urine pH 6.5 (4.5-7.5) Ur Specific [place] 1.009 (1.000-1.030) Urine Protein Negative (Negative) Urine Glucose (UA) Negative (Negative) Urine Ketones Negative (Negative) Urine Blood Negative (Negative) Urine Nitrite Negative (Negative) Urine Bilirubin Negative (Negative) Urine Urobilinogen Negative (Negative) Ur Leukocyte Esterase 1+ H (Negative) Urine WBC (Auto) 1-5 (0-5) /hpf Urine RBC (Auto) 0-4 (0-4) /hpf U Hyaline Cast (Auto) 0 (0-5) /lpf U Epithel Cells (Auto) 0-5 (0-5) /lpf Urine Bacteria (Auto) 4+ H (Negative) Imaging Data Radiologist's Impression: Radiology results as stated below per my review and the radiologist's interpretation: CT OF THE HEAD WITHOUT CONTRAST CLINICAL HISTORY: confusion, fall COMPARISON STUDY: Head CT July 14, 2018. TECHNIQUE: Helical axial images of the head were obtained without IV contrast. Automated exposure control was utilized for the study. A dose lowering techniqu e was utilized adhering to the principles of ALARA. FINDINGS: No acute intracranial hemorrhage, midline shift or mass effect is present. The ventricular system is unremarkable. The basilar cisterns are patent. No extra-axial collections are present. There are no findings to suggest acute dural sinus thrombosis or acute territorial infarct. No significant calvarial abnormalities are present. Visualized portions of the sinuses and mastoid air cells are clear. White matter hypodensities are unchanged and suggest small vessel disease. IMPRESSION: 1. No acute intracranial findings. 2. No calvarial fracture. Electronically signed by: Cyril Ortega M.D. 07/18/2019 11:26 AM XR ankle LT min 3V routine CLINICAL HISTORY: 79 years-old Female presenting with fall, pain. TECHNIQUE: Frontal, mortise, and lateral views of the left ankle were obtained. COMPARISON: None. FINDINGS: Osteopenia. Ankle mortise congruent. Mild diffuse soft tissue swelling. Abnormal appearance of the calcaneus. Evaluation is degraded by overlapping external covering's. Prominent enthesophyte at the origin of plantar fascia. An impacted fracture of the calcaneus cannot be excluded. IMPRESSION: 1. Allowing for osteopenia and overlapping external coverings at the calcaneus, an acute osseous injury of the calcaneus cannot be excluded. Recommend dedicated radiographs of the calcaneus with removal of the covering. Electronically signed by: Frank Ba M.D. 07/18/2019 10:44 AM XR chest 1V portable CLINICAL HISTORY: 79 years-old Female presenting with weakness, left leg pain. TECHNIQUE: Portable upright AP view of the chest was obtained. COMPARISON: 07/14/2018. FINDINGS: Atherosclerosis of the aortic arch. Cardiac silhouette enlarged. Mitral annular calcification suspected. Heterogeneous and coarsened lung markings. No focal opacity. No large effusion or pneumothorax. Degenerative changes of the thoracic spine. Upper abdomen normal. IMPRESSION: 1. Cardiomegaly. No other convincing evidence of acute cardiopulmonary disease. Electronically signed by: Frank Ba M.D. 07/18/2019 10:48 AM XR femur LT 2V routine CLINICAL HISTORY: 79 years-old Female presenting with fall, left leg pain. TECHNIQUE: Frontal and lateral views of the left femur were obtained. COMPARISON: None. FINDINGS: Left hip joint and left knee joint congruent. Allowing for the degree of osteopenia, no acute fracture or malalignment. Visualized portion of the bony pelvis intact. Advanced degenerative changes of the knee joint evident in all 3 compartments. Joint space loss at the knee joint is also evident. Prominent enthesophyte at the insertion of the quadriceps tendon onto the patella. Mild degenerative changes with osteophytosis at the left hip joint. No radiographic soft tissue abnormality. IMPRESSION: 1. Allowing for the degree of osteopenia, no acute osseous injury. 2. Advanced tricompartmental degenerative changes of the left knee. 3. Mild degenerative changes of the left hip. Electronically signed by: Frank Ba M.D. 07/18/2019 10:45 AM XR knee LT 2V routine CLINICAL HISTORY: 79 years-old Female presenting with fall, pain. TECHNIQUE: Frontal and lateral views of the left knee were obtained. COMPARISON: None. FINDINGS: Osteopenia. Tricompartmental degenerative changes of the knee with severe joint space loss medially. Prominent enthesophyte at the insertion of quadriceps tendon. The degree of osteopenia limits evaluation for nondisplaced fracture. Furthermore, the frontal view is slightly rotated resulting in overlap of the fibular head with the lateral tibial plateau. This limits evaluation of the lateral tibial plateau for nondisplaced fracture. Allowing for these limitations, no gross evidence of fracture. No acute-appearing malalignment. No radiographic soft tissue abnormality. IMPRESSION: 1. Allowing for osteopenia and suboptimal positioning, no acute osseous injury. 2. Tricompartmental degenerative changes most severe in the medial compartment. Electronically signed by: Frank Ba M.D. 07/18/2019 10:49 AM XR tibia fibula LT 2V CLINICAL HISTORY: Left leg pain following fall. COMPARISON: None FINDINGS: No acute fracture of the left tibia or fibula is identified. Subtle contour abnormality of the proximal shaft of the left fibula shown on lateral projection. There is extensive posterior and plantar calcaneal spurring. IMPRESSION: No definite fracture within the left tibia or fibula. Subtle contour abnormality of the proximal shaft of the left fibula is likely chronic. However, short-term follow-up radiographs are recommended to exclude the less likely possibility of a nondisplaced fracture. Electronically signed by: Cyril Ortega M.D. 07/18/2019 10:[address] cervical spine wo con CLINICAL HISTORY: 79 years-old Female presenting with fall, pain. TECHNIQUE: Multidetector CT of the cervical spine was performed without the use of intravenous contrast. IV contrast: None. One or more dose lowering techniques were used consistent with the principles of ALARA (as low as reasonably achievable), including automatic exposure control, mA or kV adjustment to indiv idual patient size, and/or use of iterative reconstruction. COMPARISON: 02/20/2017. CT DOSE (mGy.cm): The estimated cumulative dose is 1839.24 mGy.cm. FINDINGS: Display Artist topogram: The patient is edentulous. Mildly exaggerated cervical lordosis likely due to exaggerated thoracic kyphosis. Underlying osteopenia suspected. Vertebral bodies maintain normal height and alignment. Flowing anterior osteophytosis in the lower cervical spine suggests diffuse idiopathic skeletal hyperostosis. Intervertebral disc heights preserved. Disc osteophyte complexes noted from C4-5 through C6-7. Minimal posterior spondylitic spurring at C5-6 and C6-7. Limited evaluation of the soft tissues of the spinal canal do not demonstrate further effacement or other abnormality. Degenerative changes of the atlantodental articulation. No acute fracture or subluxation. Soft tissue in the external auditory canals likely c erumen. Lung apices clear. Paraspinal soft tissues within normal limits. IMPRESSION: 1. No acute osseous injury of the cervical spine. 2. Multilevel degenerative changes. Electronically signed by: Frank Ba M.D. 07/18/2019 11:30 AM SINGLE VIEW PELVIS; 2 VIEWS LEFT HIP CLINICAL HISTORY: Fall. Left hip and pelvic pain. FINDINGS: An AP supine view of the pelvis with AP and frog-leg views of the left hip are obtained. Comparison is made to study dated 05/22/2016. No fracture seen involving the bony pelvis or the right hip. There is an oblique lucency identified within the intertrochanteric left femur, concerning for nondisplaced fracture. There is moderate degenerative joint space narrowing present in both hips. Enthesophytes arise from the anterior superior iliac spines. Degenerative sclerosis is noted in the sacroiliac joints. The overlying soft tissues are normal in appearance. There is no bowel obstruction. IMPRESSION: 1. There is an indeterminant oblique lucency involving the intertrochanteric left femur. A nondistracted fracture is not excluded. Correlation with a CT scan of the left hip is recommended for further assessment. 2. No fracture is seen involving the right hip or the bony pelvis. Electronically signed by: Rodo Ramos M.D. 07/18/2019 10:[address] SCAN OF THE LEFT HIP WITHOUT IV CONTRAST CLINICAL HISTORY: Fall with left hip pain. Abnormal radiographs. COMPARISON STUDY: Radiographs of the left hip dated 07/18/2019. TECHNIQUE: CT scan of the left hip is performed from the bony pelvis to the femoral shaft. Images are reviewed in the axial, sagittal, and coronal planes. IV contrast was not administered for this examination. A dose lowering technique was utilized adhering to the principles of ALARA. FINDINGS: The skeletal structures are osteopenic. There is no evidence of fracture involving the left proximal femur or the visualized left hemipelvis. Moderate joint space narrowing is seen in the left hip joint. There is no evidence of osteonecrosis of the femoral head. No lytic or blastic lesion is seen. There is generalized atrophy of the regional musculature. The overlying soft tissues are normal in appearance. Rectosigmoid fecal impaction is noted. The visualized bladder is grossly normal. There is no left pelvic sidewall or inguinal adenopathy. IMPRESSION: No fracture is identified. The questioned radiographic abnormality was likely artifactual. Electronically signed by: Rodo Ramos M.D. 07/18/2019 11:29 AM ECG Data Attestation: I personally reviewed and interpreted this ECG as follows: Indication: weakness Rate (beats per minute): 90 Rhythm: normal sinus Findings: + other (LVH, QTC 459); no ST elevation and no acute ischemic change Blood Pressure Blood Pressure Findings: Elevated blood pressure Blood Pressure Disposition: further management by hospitalist ZENA Hill There is no leukocytosis or concerning anemia. No significant electrolyte abnormality or kidney failure. No liver enzyme elevation. EKG shows a sinus rhythm, no acute ischemia. Cardiac enzyme testing x1 is not consistent with acute cardiac injury. The patient appeared to be in a euthyroid state. Urinalysis did not show any obvious infection, bacteria though was noted, urine culture is pending. Chest film does not show pneumonia or CHF. Brain CT shows no acute bleed or mass-effect. C-spine CT shows no acute fracture. Left knee, tib-fib and ankle films were done, no fractures were noted. There was a lot of arthritis seen. The left femur and hip films showed a potential hip fracture versus artifact. A CT of the left hip was done, there was no fracture seen. The patient was given a 500 cc saline bolus, she has been resting comfortably. There is no family at bedside. According to the nursing staff and the EMS crew, the family feels the patient is in need of care above and beyond what they can currently provide. She needs strengthening and potentially rehab as she is quite weak. I did speak to the adult protective caseworker. Given the situation, rehab/hospitalization is going to be required. She does appear to have contused and sprained the left leg/hip. PT and OT evaluations have been ordered. The on-call hospitalist was consulted. Impression & Plan Weakness, Fall, Left leg pain, Acute dehydration, Dementia Discharge Plan Visit Data *Final* Discharge Date/Time: 07/18/19 13:24 Chief Complaint: Fall ED Provider: Rodo Gomez Discharge Problem: Weakness, Fall, Left leg pain, Acute dehydration, Dementia Patient Disposition: Admitted As Inpatient Discharge Instructions Interventions: ED Discharge Assessment Last Done: 07/18/19 13:24 Discharge Problem: Fall Qualifiers: Encounter type: initial encounter Qualified Code(s): W19.XXXA - Unspecified fall, initial encounter Dementia Qualifiers: Dementia type: unspecified type Dementia behavioral disturbance: with behavioral disturbance Qualified Code(s): F03.91 - Unspecified dementia with behavioral disturbance The scribe's documentation has been prepared under my direction and personally reviewed by me in its entirety. I confirm that the note above accurately reflects all work, treatment, procedures, and medical decision making performed by me.
--- NOTE | 2019-07-18 12:41 | XRay Report ---
XR calcaneus LT min 2V CLINICAL HISTORY: Calcaneal pain. Possible fracture COMPARISON: None. DISCUSSION: No acute fractures are visualized. There is Achilles insertional spurring and plantar jozef caneal spurring. IMPRESSION: Calcaneal spurring. No acute fractures identified Electronically signed by: Dwight Magana M.D. 07/18/2019 12:39 PM
--- NOTE | 2019-07-18 12:52 | History & Physical Report ---
Date of Service July 18, 2019 Assessment & Plan (1) Weakness: Admit to PCU on telemetry for observation Vital signs every 4 hours Monitor electrolytes and replete as necessary Physical and Occupational Therapy DVT prophylaxis SCDs and teds Patient is full code Present on Admission?: Yes (2) Fall: As above Present on Admission?: Yes (3) Left leg pain: Pain management with Percocet as needed Present on Admission?: Yes (4) Dementia: Patient is severely demented and unable to take care of herself. She is shelved smells in urine and stool. She would benefit from proper nursing placement such as retirement. Apparently family, patient daughter is noted situation to take care of her. Present on Admission?: Yes (5) Urinary tract infection: Patient has 1+ leukocyte esterase in her urine and 4+ bacteria. Started ceftriaxone empirically. Follow-up urine cultures. Present on Admission?: Yes (6) Rash: Unclear origin of patient rash. It is all over her body. Started Vistaril for itchiness and zinc ointment. Present on Admission?: Yes (7) Hypertension: Continue home medicine: Aspirin 81 mg p.o. daily Present on Admission?: Yes (8) Parkinson disease: Continue amantadine 100 mg p.o. twice daily, continue as a neoprene 50 mg p.o. daily, continue carbidopa levodopa 1 tablet p.o. nightly, and 1 tablet p.o. 4 times daily. Present on Admission?: Yes (9) Diabetes mellitus: Hold metformin while patient is hospitalized due to possible hypoglycemia and nephrotoxicity in case she needs a radiological procedure to be done. Glycemic control per pharmacy. Present on Admission?: Yes History of Present Illness Chief Complaint: fall Primary Care Provider: Kojo Cohen Patient is a 79 years old female with past medical history of hypertension, gait disorder, diabetes type 2 metabolic encephalopathy who was brought by EMS because of her fall this morning on the left side injuring her left hip. Patient is poor historian and family is not present at her bedside. Review of system is impossible since patient is not appropriately responding to questions since she is severely affected by dementia. In the ER patient was treated with 1 L of normal saline, urine cultures are collected, and she also had radio graphic surveillance for possible fracture. X-rays on left knee shows osteopenia, tricompartmental degenerative changes most severe in the medial compartment. But no acute osseous injury pelvis hip on the left side shows in determined oblique lucency involving intratrochanteric left femur. Non- distracted fracture is not included which was then confirmed by CT that there was no fracture. CT of the head shows no intracranial abnormalities. Left femur x-ray shows again osteopenia but no osseous injury. There is a tricompartmental degenerative changes of the left knee. Mild degenerative denis nges of the left hip. Chest x-ray shows cardiomegaly no other convincing evidence of acute cardiopulmonary disease. Cervical spine no acute osseous injuries of the cervical spine, mild degenerative changes. Left ankle shows osteopenia and overlapping external covering at the calcaneus an acute osseous injury of the calcaneus cannot be excluded. X-rays of the calcaneus : Calcaneal spurring, no acute fracture identified. Decision was made to admit patient for observation on telemetry for pain management, physical therapy and Occupational Therapy in her transit to [facility] Allergies Allergy/AdvReac Type Severity Reaction Status Date / Time No Known Allergies Allergy Unverified 07/18/19 10:25 Home Medications Home Medications Medication Instructions Recorded Confirmed Type Adult Multivitamin Gummies 2 tabs PO DAILY 07/14/18 07/18/19 History Desenex 1 applic TOPICAL BID PRN 07/14/18 07/18/19 History acetaminophen [Tylenol Extra 500 mg PO QID PRN 07/14/18 07/18/19 History Strength] amantadine HCl 100 mg PO BID 07/14/18 07/18/19 History aspirin [Aspir-81] 81 mg PO DAILY 07/14/18 07/18/19 History azathioprine [Imuran] 50 mg PO DAILY 07/14/18 07/18/19 History mkxpeuwrj-ibvvyozm-kuerztwnzc 1 tab PO QID 07/14/18 07/18/19 History [Stalevo 200] cyanocobalamin (vitamin B-12) 1,000 mcg IM MONTHLY 07/14/18 07/18/19 History metformin [Glucophage] 850 mg PO BID 07/14/18 07/18/19 History polyethylene glycol 3350 [Miralax] 1 dose PO DAILY PRN 07/14/18 07/18/19 History tramadol [Ultram] 50 mg PO Q6 PRN 07/14/18 07/18/19 History triamcinolone acetonide 1 applic TOPICAL BID PRN 07/14/18 07/18/19 History carbidopa-levodopa 1 tab PO HS 07/18/19 07/18/19 History Past Med/Surg History Medical History Urinary tract infection (Acute) Hypertension (Chronic) Parkinson disease (Chronic) Diabetes Paroxysmal atrial fibrillation QT prolongation Family History Other Aneurysm Stroke Social History Preferred Language: Amharic Communication Ability: Effective Trading Analyst Required: No Beliefs That Will Affect Care: None Current Living Situation: Family Current Living Situation Comment: lives with daughter Other Information That Helps Us Care for You: No Feels Safe at Home: Yes Safety Concerns: Feels Safe At This Time Smoking Status: Never smoker Hx Alcohol Use: No Hx Substance Use: No Review of Systems Review of Systems: All systems reviewed & are unremarkable except as noted in HPI & below Physical Exam Constitutional: WD/WN, vitals as above well developed, + disheveled and + in distress Eyes: PERRL, conjunctivae normal, anicteric sclerae ENMT: external ear and nose normal, oropharynx normal Neck: trachea midline, no thyromegaly Respiratory: normal respiratory effort, lungs clear to auscultation Cardiovascular: RRR, no murmur, no edema Vessels: dorsalis pedis pulses present Extremities: + pedal edema Gastrointestinal (Abdomen): normal bowel sounds, soft, nontender, no hepa tosplenomegaly Musculoskeletal: no cyanosis or clubbing, extremities motor strength 5/5 Skin: no rashes, warm and dry Neurologic: patellar DTR's 2+ bilat, sensation intact Psychiatric: A+Ox3, euthymic affect Lymphatic: no cervical or axillary lymphadenopathy Results & Data Vital Signs (Past 12 Hours) Vital Signs Temp Pulse Resp BP Pulse Ox 07/18/19 12:12 95 07/18/19 09:57 36.8 C 86 20 178/84 H 94 Code Status & VTE Plan Code Status Full code VTE Prophylaxis Plan VTE Prophylaxis will be ordered: No PG Care Time/CCT Total # of Minutes Spent Total Time Spent with Patient: Total time spent is greater than 50% in coordination of care (as documented) at patient's floor/unit and/or counseling patient: (1) Urinary tract infection Hematuria presence: without hematuria Urinary tract infection type: acute cystitis Qualified Code(s): N30.00 - Acute cystitis without hematuria (2) Dementia Dementia behavioral disturbance: with behavioral disturbance Dementia type: unspecified type Qualified Code(s): F03.91 - Unspecified dementia with behavioral disturbance (3) Hypertension Hypertension type: essential hypertension Qualified Code(s): I10 - Essential (primary) hypertension (4) Fall Encounter type: initial encounter Qualified Code(s): W19.XXXA - Unspecified fall, initial encounter
[2019-07-18] MEDS ORDERED: ACETAMINOPHEN 325 MG TAB PO PRN (13:54)
[2019-07-18] MEDS ORDERED: POLYETHYLENE (MIRALAX) 17 GM PACK PO PRN ×2 (13:54)
[2019-07-18] MEDS ORDERED: ONDANSETRON INJ 2 MG/ML 2 ML VIAL IV PRN (13:54)
[2019-07-18] MEDS ORDERED: MICONAZOLE NITRATE POWDER 43 GM TOP PRN (13:54)
[2019-07-18] MEDS ORDERED: ZOLPIDEM TARTRATE 5 MG TAB PO PRN (13:54)
[2019-07-18] MEDS ORDERED: MAGNESIUM HYDROXIDE SUSP 30 ML UDC PO PRN (13:54)
[2019-07-18] MEDS ORDERED: TRAMADOL HCL 50 MG TABLET PO PRN (13:54)
[2019-07-18] MEDS ORDERED: TRIAMCINOLONE ACET 0.1% CR 15 GM TUBE TOP PRN (13:54)
[2019-07-18] MEDS ORDERED: ALUMINUM/MAGNESIUM SUSP 30 ML UDC PO PRN (13:54)
[2019-07-18] MEDS ORDERED: CYANOCOBALAMIN 1000 MCG/ML VIAL IM SCH (18:00)
[2019-07-18] MEDS: [UNRECOGNIZED DRUG - REMARK] SCH ×2 (18:37→23:38)
[2019-07-18] MEDS ORDERED: PHARMACY GLYCEMIC MGMT CONSULT PRN (18:44)
[2019-07-18] MEDS ORDERED: DEXTROSE 50% 50 ML SYRINGE IV PRN (19:15)
[2019-07-18] MEDS ORDERED: GLUCAGON FOR INJ 1 MG VIAL IM PRN (19:15)
[2019-07-18] MEDS ORDERED: GLUCOSE 10 TABS/TUBE PO PRN (19:15)
[2019-07-18] MEDS ORDERED: GLUCOSE 40% GEL 15 GM TUBE PO PRN (19:15)
[2019-07-18] MEDS ORDERED: CARBOHYDRATES FOR HYPOGLYCEMIA PO PRN (19:15)
[2019-07-18] MEDS: cefTRIAXone SODIUM 2,000 MG in DEXTROSE 5% 50 ML IV SCH (19:48)
[2019-07-18] MEDS: CARBIDOPA/LEVODOPA 50/200MG EXT REL TAB PO SCH (20:31)
[2019-07-18] MEDS: AMANTADINE HCL 100 MG CAPSULE PO SCH (20:31)
[2019-07-18] MEDS: OXYCODONE/ACETAMINOPHEN 5mg/325mg TAB PO PRN (20:47)
[2019-07-18] MEDS ORDERED: INSULIN GLARGINE SOLOSTAR 100 UNITS/ML 3 ML PEN SC ONE (21:15)
[2019-07-18] MEDS: INSULIN ASPART 100 UNITS/ML 3 ML PEN SC SCH (22:00)
[2019-07-19] MEDS ORDERED: INSULIN ASPART 100 UNITS/ML 3 ML PEN SC ONE (02:00)
[2019-07-19] MEDS: OXYCODONE/ACETAMINOPHEN 5mg/325mg TAB PO PRN ×3 (05:48→21:33)
[2019-07-19 07:00] LABS: Basophils # (auto) 0.04 K/uL (0-0.2); Basophils % (auto) 0.6 %; Eosinophils # (auto) 0.29 K/uL (0-0.5); Eosinophils % (auto) 4.3 %; Hematocrit (blood only) 38.6 % (37-47); Hemoglobin 13.3 g/dL (12.0-16.0); Immature Granulocytes # (auto) 0.01 K/uL (0.00-0.02); Immature Granulocytes % (auto) 0.1 %; Lymphocytes # (auto) 1.07 K/uL (1.2-3.4); Lymphocytes % (auto) 15.9 %; Mean Corpuscular Hemoglobin 33.7 pg (25-34); Mean Corpuscular Hgb Conc 34.5 g/dL (32-36); Mean Corpuscular Volume 97.7 fL (80-100); Mean Platelet Volume 10.1 fL (7.4-10.4); Monocytes # (auto) 0.69 K/uL (0.11-0.59); Monocytes % (auto) 10.2 %; Neutrophils # (auto) 4.64 K/uL (1.4-6.5); Neutrophils % (auto) 68.9 %; Platelet Count 272 K/uL (130-400); RDW Coefficient of Variation 13.7 % (11.5-14.5); RDW Standard Deviation 48.8 fL (36.4-46.3); Red Blood Count 3.95 M/uL (4.2-5.4); White Blood Count 6.74 K/uL (4.8-10.8)
[2019-07-19 07:32] LABS: Albumin Level 3.6 gm/dl (3.4-5.0); BUN Creatinine Ratio 14.6 (10-20); Calcium 9.5 mg/dl (8.5-10.1); Creatinine Clr Calc Pharmacy 76.6 ml/min; Est GFR (African American) 93.2; Est GFR (Non-African American) 80.4; Potassium 3.7 mmol/L (3.5-5.1)
[2019-07-19 07:35] LABS: Bilirubin,Total 0.4 mg/dl (0.2-1); Globulin 3.6 gm/dl (2.5-4.0); Total Protein 7.2 gm/dl (6.4-8.2)
[2019-07-19 07:38] LABS: Estimated Average Glucose 154 mg/dl
[2019-07-19] MEDS: ASPIRIN 81 MG ECTAB PO SCH (07:47)
[2019-07-19] MEDS: CEROVITE ADV FORMULA TAB PO SCH (07:47)
[2019-07-19] MEDS: AMANTADINE HCL 100 MG CAPSULE PO SCH ×2 (07:48→20:30)
[2019-07-19] MEDS: azaTHIOprine 50 MG TAB PO SCH (07:48)
[2019-07-19] MEDS: [UNRECOGNIZED DRUG - REMARK] SCH ×2 (07:48→14:44)
[2019-07-19] MEDS ORDERED: INFLUENZA VIRUS QUAD VACCINE 0.5 ML SYR IM ONE (09:00)
[2019-07-19] MEDS ORDERED: INFLUENZA ADMINISTRATION CHARGE ONE (09:00)
[2019-07-19] MEDS: INSULIN ASPART 100 UNITS/ML 3 ML PEN SC SCH ×4 (09:03→21:52)
--- NOTE | 2019-07-19 10:07 | Pharmacy Report ---
Glycemic Control Consultation - Date of Service July 19, 2019 - Scope Scope: Glycemic Pharmacist consulted by Dr Cespedes on 07/19/19 for glycemic control and to write orders per [facility] inpatient glycemic control protocol - Objective Weight: 99.6 kg Accuchecks BSG (last 24hrs): 07/18/19 07/18/19 07/19/19 10:35 20:46 01:52 Glucose 142 H POC Glucose 256 H 167 H 07/19/19 07/19/19 05:57 07:19 Glucose 154 H POC Glucose 175 H Laboratory Data (last 24hrs): 07/18/19 07/19/19 10:35 05:57 Potassium 4.0 3.7 Carbon Dioxide 29 24 Anion Gap 7.0 10.0 Creatinine 0.73 0.71 Est Cr Clr Drug Dosing 73.8 76.6 HbA1c: Hemoglobin A1c 7.0 % (4.5-5.6) H 07/19/19 05:57 - Recent Pertinent Medications Outpatient Anti-diabetic Regimen: * Metformin The patient is currently receiving: * Basal insulin: Lantus 20 units every 24 hours given at HS * Correctional Insulin: Novolog Correction per scale ACHS Goal Range: Low 110 mg/dL - High 140 mg/dL Correction Factor: 25 mg/dL/unit * Prandial insulin: Per carb ratio of 1 unit per 8 grams CHO consumed * Oral Agents: Risk Factors for Insulin Resistance: * Infection * Diet - Assessment & Plan Assessment & Plan: ASSESSMENT: * 79 yo T2DM female with excellent outpatient control per recent A1c. * Pt is maintained on oral antidiabetic agents as an outpatient * Oral agents are not recommended for inpatient use d/t drug interactions, changing PO intake, and difficulty titrating for acute hyper/hypoglycemia. ADA recommends re-initiating outpatient oral agents 1-2 days prior to discharge if/when appropriate if they were held on admission. * Will hold oral agents for admission and utilize SQ basal bolus insulin regimen which is the recommended regimen for inpatient glycemic control. * Initiated weight based, low stress insulin dosing last evening on admission * AM fasting BSG slightly above goal range at 175mg/dl; pt also received 3 u nit of correctional insulin overnight --> will increase basal insulin slightly * titrate based on BSG trends. PLAN FOR INPATIENT GLYCEMIC CONTROL: * Holding outpatient oral diabetes medications * Basal insulin * Lantus 27 units SQ HS * Bolus insulin * NovoLog per scale ACHS or Q6hrs while NPO * Goal Range: Low 110 mg/dL - High 140 mg/dL * Correction Factor: 25 mg/dL/unit (tighten to 20 until increased Lantus dose given this evening) * Nutritional / Prandial insulin per carb ratio of 1 unit per 8 grams CHO consumed (tighten to 7 until increased Lantus dose given this evening) * Please note that the plan above was derived based on current level of insulin resistance and hospital stress. These recommendations are appropriate for inpati ent admission only. Plan of care upon discharge will need to be reassessed to avoid potential outpatient hypo/hyperglycemia. Thank you.
--- NOTE | 2019-07-19 15:56 | Hospitalist Progress Note ---
Date of Service July 19, 2019 Assessment & Plan (1) Fall: Appears to be a mechanical fall that is likely multifactorial from age, Parkinson's. No indication of syncope. - PT/OT - CM for possible placement (2) Urinary tract infection: Patient has 1+ leukocyte esterase in her urine and 4+ bacteria. Urine culture from 07/18 growing 2 Gram(-) bacilli. - Continue ceftriaxone (3) Left leg pain: No fractures noted on imaging. - Pain management with Percocet as needed (4) Dementia: Patient is severely demented and unable to take care of herself. She is shelved smells in urine and stool. She would benefit from proper nursing placement such as half-way. Apparently family, patient daughter is noted situation to take care of her. - Appears to be at baseline. (5) Diabetes mellitus: A1c is 7.0% this admission. - Hold metformin while patient is hospitalized - Sliding scale insulin - Glycemic control per pharmacy (6) Rash: History of possible autoimmune rash (poss. pemphigus?) - Continue azathioprine & anti-fungal lotion - Started Vistaril for itchiness and zinc ointment. (7) Hypertension: Not on home meds. BP is 150/75 today. - Monitor (8) Parkinson disease: - Continue amantadine, carbidopa-levodopa (9) DVT prophylaxis: SCDs - Low DVT risk per admission calculator Subjective Feels fairly well today. No major concerns after the fall. Review of Systems Review of Systems: All systems reviewed & are unremarkable except as noted in HPI & below Physical Exam Constitutional: WD/WN, vitals as above Eyes: EOM intact bilaterally; no conjunctival abnormality ENMT: external ear and nose normal, oropharynx normal Neck: trachea midline, no thyromegaly normal visual inspection Respiratory: normal respiratory effort, lungs clear to auscultation no respiratory distress Cardiovascular: RRR, no murmur, no edema Gastrointestinal (Abdomen): Inspection/Auscultation: abdomen normal to inspection; abdomen not distended Musculoskeletal: no cyanosis or clubbing, extremities motor strength 5/5 Skin: no rashes, warm and dry Neurologic: moves all extremities and awake Psychiatric: Orientation: alert, oriented to person and cooperative Results & Data Vital Signs (Past 12 Hours) Vital Signs Temp Pulse Pulse Resp BP Pulse Ox 07/19/19 15:04 37.1 C 16 149/74 H 95 07/19/19 10:48 37.1 C 70 18 156/89 H 94 07/19/19 09:19 92 H 07/19/19 07:41 37.3 C 92 H 18 137/77 94 07/19/19 04:24 36.9 C 96 H 18 124/77 95 PG Care Time/CCT Total # of Minutes Spent Total Time Spent with Patient: Total time spent is greater than 50% in coordination of care (as documented) at patient's floor/unit and/or counseling patient: (1) Urinary tract infection Hematuria presence: without hematuria Urinary tract infection type: acute cystitis Qualified Code(s): N30.00 - Acute cystitis without hematuria (2) Dementia Dementia behavioral disturbance: with behavioral disturbance Dementia type: unspecified type Qualified Code(s): F03.91 - Unspecified dementia with behavioral disturbance (3) Hypertension Hypertension type: essential hypertension Qualified Code(s): I10 - Essential (primary) hypertension (4) Fall Encounter type: initial encounter Qualified Code(s): W19.XXXA - Unspecified fall, initial encounter
[2019-07-19] MEDS ORDERED: INSULIN GLARGINE SOLOSTAR 100 UNITS/ML 3 ML PEN SC SCH (16:30)
[2019-07-19] MEDS: ENTACAPONE 200 MG TAB PO SCH ×2 (17:43→20:29)
[2019-07-19] MEDS: CARBIDOPA/LEVODOPA 25/100MG TAB PO SCH ×2 (17:44→20:29)
[2019-07-19] MEDS: CARBIDOPA/LEVODOPA 50/200MG EXT REL TAB PO SCH (20:30)
[2019-07-19] MEDS: BACITRACIN OINT 15 GM TUBE EXT SCH (20:31)
[2019-07-19] MEDS: NYSTATIN OINT 15 GM TUBE EXT SCH (20:31)
[2019-07-19] MEDS: cefTRIAXone SODIUM 2,000 MG in DEXTROSE 5% 50 ML IV SCH (20:34)
[2019-07-20 06:05] LABS: Basophils # (auto) 0.02 K/uL (0-0.2); Basophils % (auto) 0.3 %; Eosinophils # (auto) 0.33 K/uL (0-0.5); Eosinophils % (auto) 5.8 %; Hematocrit (blood only) 37.5 % (37-47); Hemoglobin 12.8 g/dL (12.0-16.0); Immature Granulocytes # (auto) 0.02 K/uL (0.00-0.02); Immature Granulocytes % (auto) 0.3 %; Lymphocytes # (auto) 1.42 K/uL (1.2-3.4); Lymphocytes % (auto) 24.8 %; Mean Corpuscular Hemoglobin 33.2 pg (25-34); Mean Corpuscular Hgb Conc 34.1 g/dL (32-36); Mean Corpuscular Volume 97.2 fL (80-100); Mean Platelet Volume 9.8 fL (7.4-10.4); Monocytes # (auto) 0.62 K/uL (0.11-0.59); Monocytes % (auto) 10.8 %; Neutrophils # (auto) 3.32 K/uL (1.4-6.5); Platelet Count 258 K/uL (130-400); RDW Coefficient of Variation 13.8 % (11.5-14.5); RDW Standard Deviation 48.6 fL (36.4-46.3); Red Blood Count 3.86 M/uL (4.2-5.4); White Blood Count 5.73 K/uL (4.8-10.8)
[2019-07-20 06:47] LABS: Albumin Level 3.2 gm/dl (3.4-5.0); BUN Creatinine Ratio 15.6 (10-20); Calcium 9.1 mg/dl (8.5-10.1); Creatinine Clr Calc Pharmacy 76.8 ml/min; Est GFR (African American) 94.8; Est GFR (Non-African American) 81.8; Potassium 3.9 mmol/L (3.5-5.1)
[2019-07-20 06:50] LABS: Albumin Globulin Ratio 0.9 (0.9-2); Bilirubin,Total 0.6 mg/dl (0.2-1); Globulin 3.6 gm/dl (2.5-4.0); Total Protein 6.8 gm/dl (6.4-8.2)
[2019-07-20] MEDS: INSULIN ASPART 100 UNITS/ML 3 ML PEN SC SCH ×4 (08:25→21:29)
[2019-07-20] MEDS: ENTACAPONE 200 MG TAB PO SCH ×4 (08:26→21:18)
[2019-07-20] MEDS: BACITRACIN OINT 15 GM TUBE EXT SCH ×2 (08:26→21:17)
[2019-07-20] MEDS: azaTHIOprine 50 MG TAB PO SCH (08:26)
[2019-07-20] MEDS: NYSTATIN OINT 15 GM TUBE EXT SCH ×2 (08:26→21:19)
[2019-07-20] MEDS: ASPIRIN 81 MG ECTAB PO SCH (08:27)
[2019-07-20] MEDS: CEROVITE ADV FORMULA TAB PO SCH (08:27)
[2019-07-20] MEDS: AMANTADINE HCL 100 MG CAPSULE PO SCH ×2 (08:27→21:20)
[2019-07-20] MEDS: CARBIDOPA/LEVODOPA 25/100MG TAB PO SCH ×4 (08:27→21:23)
[2019-07-20] MEDS: INSULIN GLARGINE SOLOSTAR 100 UNITS/ML 3 ML PEN SC SCH ×2 (08:28→21:26)
--- NOTE | 2019-07-20 10:24 | Pharmacy Report ---
Pharmacy Glycemic Short Note 2 - Date of Service July 20, 2019 - Glycemic Short BSG Results (Last 24 hours): 07/19/19 07/19/19 07/19/19 11:16 16:11 20:42 Glucose POC Glucose 208 H 183 H 169 H 07/20/19 07/20/19 05:42 07:09 Glucose 162 H POC Glucose 174 H Outpatient Anti-diabetic Regimen: * Metformin The patient is currently receiving: * Basal insulin: Lantus 27 units every 24 hours given in PM * Correctional Insulin: Novolog Correction per scale ACHS Goal Range: Low 110 mg/dL - High 140 mg/dL Correction Factor: 15 mg/dL/unit * Prandial insulin: Per carb ratio of 1 unit per 7 grams CHO consumed * Oral Agents: on hold for admission ASSESSMENT: * 79 yo T2DM female with excellent outpatient control per recent A1c. Pt maintained on metformin as an outpatient. May resume at DC * Metformin on hold for admission and initiated low stress weight based SQ basal bolus insulin regimen which is the recommended regimen for inpatient glycemic control. * AM fasting BSG slightly above goal range at 174, basically unchanged from yesterday despite basal insulin dose increase. Will change Lantus from Q24hr dosing to BID dosing. * No changes needed to CF/CR * Permissive BSG glycemic control appropriate based on age and dementia PLAN FOR INPATIENT GLYCEMIC CONTROL: * Hold outpatient oral diabetes medications * Basal insulin * Lantus 16 units SQ BID * Bolus insulin * NovoLog per scale ACHS or Q6hrs while NPO * Goal Range: Low 110 mg/dL - High 140 mg/dL * Correction Factor: 20 mg/dL/unit * Nutritional / Prandial insulin per carb ratio of 1 unit per 7 grams CHO consumed
--- NOTE | 2019-07-20 13:59 | Hospitalist Progress Note ---
Date of Service July 20, 2019 Assessment & Plan (1) Fall: Appears to be a mechanical fall that is likely multifactorial from age, Parkinson's. No indication of syncope. - PT/OT - CM for possible placement -> Hopefully tomorrow. (2) Urinary tract infection: Patient has 1+ leukocyte esterase in her urine and 4+ bacteria. Urine culture from 07/18 growing 2 Gram(-) bacilli. - Continue ceftriaxone (3) Left leg pain: No fractures noted on imaging. - Pain management with Percocet as needed (4) Dementia: Patient has dementia, but easily converses and remembers me from prior days. At this point, unable to be cared for at home due to mobility issues. - Appears to be at baseline. (5) Diabetes mellitus: A1c is 7.0% this admission. - Hold metformin while patient is hospitalized - Sliding scale insulin - Glycemic control per pharmacy - Stable today. (6) Rash: History of possible autoimmune rash (poss. pemphigus?) - Continue azathioprine & anti-fungal lotion - Started Vistaril for itchiness and zinc ointment. (7) Hypertension: Not on home meds. BP is 100/60 today. High of 150/90 so far. - Monitor (8) Parkinson disease: - Continue amantadine, carbidopa-levodopa - We have switched to formulary meds as her Stalevo wasn't brought in; can restart it on discharge. (9) DVT prophylaxis: SCDs - Low DVT risk per admission calculator Subjective Doing great today. No major concerns. Leg pain has improved. Review of Systems Review of Systems: All systems reviewed & are unremarkable except as noted in HPI & below Physical Exam Constitutional: WD/WN, vitals as above Eyes: EOM intact bilaterally; no conjunctival abnormality ENMT: external ear and nose normal, oropharynx normal Neck: trachea midline, no thyromegaly normal visual inspection Respiratory: normal respiratory effort, lungs clear to auscultation no respiratory distress Cardiovascular: RRR, no murmur, no edema Gastrointestinal (Abdomen): Inspection/Auscultation: abdomen normal to ins pection; abdomen not distended Musculoskeletal: no cyanosis or clubbing, extremities motor strength 5/5 Skin: no rashes, warm and dry Neurologic: moves all extremities and awake Psychiatric: Orientation: alert, oriented to person and cooperative Results & Data Vital Signs (Past 12 Hours) Vital Signs Temp Pulse Pulse Resp BP Pulse Ox 07/20/19 11:40 36.6 C 86 18 102/62 93 07/20/19 08:22 36.8 C 95 H 20 118/73 94 07/20/19 03:24 36.9 C 94 H 18 128/76 95 07/20/19 02:07 96 H PG Care Time/CCT Total # of Minutes Spent Total Time Spent with Patient: Total time spent is greater than 50% in coordination of care (as documented) at patient's floor/unit and/or counseling patient: (1) Fall Encounter type: initial encounter Qualified Code(s): W19.XXXA - Unspecified fall, initial encounter (2) Urinary tract infection Urinary tract infection type: acute cystitis Hematuria presence: without hematuria Qualified Code(s): N30.00 - Acute cystitis without hematuria (3) Dementia Dementia behavioral disturbance: with behavioral disturbance Dementia type: unspecified type Qualified Code(s): F03.91 - Unspecified dementia with behavioral disturbance (4) Hypertension Hypertension type: essential hypertension Qualified Code(s): I10 - Essential (primary) hypertension
[2019-07-20] MEDS: cefTRIAXone SODIUM 2,000 MG in DEXTROSE 5% 50 ML IV SCH (18:35)
[2019-07-20] MEDS: CARBIDOPA/LEVODOPA 50/200MG EXT REL TAB PO SCH (21:22)
[2019-07-21] MEDS: CARBIDOPA/LEVODOPA 25/100MG TAB PO SCH ×4 (08:28→20:59)
[2019-07-21] MEDS: BACITRACIN OINT 15 GM TUBE EXT SCH ×2 (08:29→21:04)
[2019-07-21] MEDS: AMANTADINE HCL 100 MG CAPSULE PO SCH ×2 (08:29→20:58)
[2019-07-21] MEDS: ASPIRIN 81 MG ECTAB PO SCH (08:29)
[2019-07-21] MEDS: NYSTATIN OINT 15 GM TUBE EXT SCH ×2 (08:29→21:54)
[2019-07-21] MEDS: azaTHIOprine 50 MG TAB PO SCH (08:29)
[2019-07-21] MEDS: ENTACAPONE 200 MG TAB PO SCH ×4 (08:29→21:00)
[2019-07-21] MEDS: INSULIN ASPART 100 UNITS/ML 3 ML PEN SC SCH ×4 (08:30→21:01)
[2019-07-21] MEDS: INSULIN GLARGINE SOLOSTAR 100 UNITS/ML 3 ML PEN SC SCH ×2 (08:31→21:03)
[2019-07-21 09:29] LABS: Hematocrit (blood only) 39.1 % (37-47); Hemoglobin 13.2 g/dL (12.0-16.0); Mean Corpuscular Hemoglobin 33.5 pg (25-34); Mean Corpuscular Hgb Conc 33.8 g/dL (32-36); Mean Corpuscular Volume 99.2 fL (80-100); Platelet Count 271 K/uL (130-400); RDW Coefficient of Variation 13.6 % (11.5-14.5); RDW Standard Deviation 49.4 fL (36.4-46.3); Red Blood Count 3.94 M/uL (4.2-5.4); White Blood Count 5.13 K/uL (4.8-10.8)
[2019-07-21 09:57] LABS: BUN Creatinine Ratio 16.6 (10-20); Calcium 9.7 mg/dl (8.5-10.1); Creatinine Clr Calc Pharmacy 60.4 ml/min; Est GFR (African American) 70.9; Est GFR (Non-African American) 61.2; Potassium 3.8 mmol/L (3.5-5.1)
--- NOTE | 2019-07-21 10:45 | Pharmacy Report ---
Pharmacy Glycemic Short Note 2 - Date of Service July 21, 2019 - Glycemic Short BSG Results (Last 24 hours): 07/20/19 07/20/19 07/20/19 11:12 16:42 20:27 Glucose POC Glucose 164 H 175 H 135 H 07/21/19 07/21/19 07:55 09:06 Glucose 255 H POC Glucose 148 H Outpatient Anti-diabetic Regimen: * Metformin The patient is currently receiving: * Basal insulin: Lantus 16 units SC BID * Correctional Insulin: Novolog Correction per scale ACHS Goal Range: Low 110 mg/dL - High 140 mg/dL Correction Factor: 20 mg/dL/unit * Prandial insulin: Per carb ratio of 1 unit per 7 grams CHO consumed * Oral Agents: on hold for admission ASSESSMENT: * 79 yo female with T2DM with excellent outpatient control per recent A1c on metformin monotherapy * Metformin on hold for admission * BSG's ranged 135-175 mg/dL yesterday * Stressors stable - continuing on ceftriaxone for UTI and ordered T2DM diet * Basal/bolus split approximately 50/50 yesterday which is appropriate for a patient who is not receiving steroids * Increase in Lantus yesterday noted - AM fasting BSG today now in goal range at 148 mg/dL. Will continue dose from yesterday but also add in parameters to adjust based on BSG * No indication to change Novolog at this time. Currently ordered at slightly tighter than weight-based moderate stress estimate * Permissive mild-moderate hyperglycemia appropriate based on age and dementia PLAN FOR INPATIENT GLYCEMIC CONTROL: * Hold outpatient oral diabetes medications * Basal insulin: Lantus SQ BID based on BSG * 10 units for BSG less than 110 mg/dL * 16 units for BSG 110-150 mg/dL * 20 units for BSG greater than 150 mg/dL * Bolus insulin * NovoLog per scale ACHS or Q6hrs while NPO * Goal Range: Low 110 mg/dL - High 140 mg/dL * Correction Factor: 20 mg/dL/unit * Nutritional / Prandial insulin per carb ratio of 1 unit per 7 grams CHO consumed Discharge recommendations * Resume home metformin
--- NOTE | 2019-07-21 11:02 | Hospitalist Progress Note ---
Date of Service July 21, 2019 Assessment & Plan (1) Fall: * Appears to be a mechanical fall that is likely multifactorial from age, Parkinson's. No indication of syncope. * PT/OT- recommending pt need for 24-hour skilled care for continued PT at SNF * CM- pre-auth pending for [facility] placement--> possible d/c today or tomorrow pending (2) Urinary tract infection: * Patient has 1+ leukocyte esterase in her urine and 4+ bacteria. Urine culture from 07/18 growing 2 Gram(-) bacilli. * Patient previously discharged on Keflex 500mg BID on 07/18 (initiated treatment on 07/15) * Continue ceftriaxone * Will transition to PO Cipro this afternoon for possible discharge to [facility] - abx course will be completed on on 07/24. (3) Left leg pain: * No fractures noted on imaging * Pain management with Percocet as needed (4) Dementia: * Complicated by parkinsons- patient diagnosed 4 years ago * Patient has dementia, but easily converses * However, due to mobility issues, patient unable to be cared for at home. * Patient at baseline currently (5) Diabetes mellitus: * A1c is 7.0% this admission. * Hold metformin while patient is hospitalized * Sliding scale insulin * Glycemic control per pharmacy (6) Rash: * History of possible autoimmune rash (poss. pemphigus?) * Continue azathioprine & anti-fungal lotion * Continue Vistaril for itchiness and zinc ointment * Wound RN - ?fungal infection under R breast * Nystatin to affected area BID (7) Hypertension: * Per hx- not on home meds * Stable * BP is 123/77 currently today. * Continue to monitor (8) Parkinson disease: * Continue amantadine, carbidopa-levodopa * Switched to formulary meds as her Stalevo wasn't brought in; can restart it on discharge. (9) DVT prophylaxis: * SCDs - Low DVT risk per admission calculator Dispo: patient to be discharged to [facility] Supervising Physician Co-Signing Physician Notes Attending Attestation: Pt seen/examined, chart reviewed, care plan d/w ELYSSA Sorensen. I agree w/ the basurto components of her documentation. Pt with c/o left leg pain. Otherwise feeling well. VSS no fever gen - NAD heart - RRR lungs - CTA b/l abd - soft musculo - left hip - passive ROM does not elicit any pain; left knee - mild discomfort with passive flexion/extension; no signs of trauma to LLE ext - pulses 2+b/l A/P: 1. recent fall 2. PD 3. UTI - agree w/ current Rx plan by Ms Sorensen 4. LLE pain - extensive imaging done at time of admission with no fractures; suspect soft tissue injury/contusion; treat symptoms d/c to [facility] next 24 hrs Demian Dean MD Subjective Patient was evaluated this morning at bedside. Patient feeling generally well today. No complaints. She states she feels ready to be discharged today to [facility] for skilled rehab. Review of Systems Review of Systems: All systems reviewed & are unremarkable except as noted in HPI & below Physical Exam Constitutional: WD/WN, vitals as above well developed and + disheveled Eyes: PERRL, conjunctivae normal, anicteric sclerae EOM intact bilaterally; no conjunctival abnormality ENMT: external ear and nose normal, oropharynx normal Neck: trachea midline, no thyromegaly normal visual inspection Respiratory: normal respiratory effort, lungs clear to auscultation no respiratory distress Cardiovascular: RRR, no murmur, no edema Vessels: dorsalis pedis pulses present Extremities: + pedal edema Gastrointestinal (Abdomen): normal bowel sounds, soft, nontender, no hepatosplenomegaly Inspection/Auscultation: abdomen normal to inspection; abdomen not distended Musculoskeletal: no cyanosis or clubbing, extremities motor strength 5/5 pain to palpation bilateral lower extremities- chronic Skin: no rashes, warm and dry Neurologic: patellar DTR's 2+ bilat, sensation intact moves all extremities and awake Psychiatric: A+Ox3, euthymic affect resting tremor Lymphatic: no cervical or axillary lymphadenopathy Results & Data Vital Signs (Past 12 Hours) Vital Signs Temp Pulse Resp BP BP Pulse Ox 07/21/19 06:56 36.4 C L 76 21 123/77 95 07/20/19 23:16 36.9 C 79 18 144/83 H 96 Laboratory Results 07/21/19 07/21/19 07/21/19 Range/Units 09:06 09:06 07:55 WBC 5.13 (4.8-10.8) K/uL RBC 3.94 L (4.2-5.4) M/uL Hgb 13.2 (12.0-16.0) g/dL Hct 39.1 (37-47) % MCV 99.2 (80-100) fL MCH 33.5 (25-34) pg MCHC 33.8 (32-36) g/dL RDW Std Deviation 49.4 H (36.4-46.3) fL RDW Coeff of Segundo 13.6 (11.5-14.5) % Plt Count 271 (130-400) K/uL MPV 10.0 (7.4-10.4) fL Sodium 134 L (136-145) mmol/L Potassium 3.8 (3.5-5.1) mmol/L Chloride 100 (98-107) mmol/L Carbon Dioxide 24 (21-32) mmol/L Anion Gap 10.0 (3-11) BUN 15 (7-18) mg/dl Creatinine 0.89 (0.6-1.2) mg/dl Est Cr Clr Drug Dosing 60.4 ml/min Est GFR ( Amer) 70.9 Est GFR (Non-Af Amer) 61.2 BUN/Creatinine Ratio 16.6 (10-20) Glucose 255 H (70-99) mg/dl POC Glucose 148 H (70-99) Calcium 9.7 (8.5-10.1) mg/dl 07/20/19 07/20/19 07/20/19 Range/Units 20:27 16:42 11:12 WBC (4.8-10.8) K/uL RBC (4.2-5.4) M/uL Hgb (12.0-16.0) g/dL Hct (37-47) % MCV (80-100) fL MCH (25-34) pg MCHC (32-36) g/dL RDW Std Deviation (36.4-46.3) fL RDW Coeff of Segundo (11.5-14.5) % Plt Count (130-400) K/uL MPV (7.4-10.4) fL Sodium (136-145) mmol/L Potassium (3.5-5.1) mmol/L Chloride (98-107) mmol/L Carbon Dioxide (21-32) mmol/L Anion Gap (3-11) BUN (7-18) mg/dl Creatinine (0.6-1.2) mg/dl Est Cr Clr Drug Dosing ml/min Est GFR ( Amer) Est GFR (Non-Af Amer) BUN/Creatinine Ratio (10-20) Glucose (70-99) mg/dl POC Glucose 135 H 175 H 164 H (70-99) Calcium (8.5-10.1) mg/dl Urine Culture 07/18/19 Procedure Result Verified Site Urine Culture Final 07/20/19-853 Organism 1 Klebsiella oxytoca [place] Count >100,000 CFU/ml Sens Sensitivities to Follow Organism 2 Klebsiella oxytoca#2 [place] Count >100,000 CFU/ml Sens No Sensitivities to Follow Identification and susceptibility testing have confirmed the two organisms previously reported are the same organism. No susceptibility results will be generated on the second isolate. Kleb oxyto RX M.I.C. --- --------- Amikacin S <=16 Amp/Sul I 16/8 Cefazolin R >16 Cefepime S <=4 Cefotaxime S <=2 Cefoxitin S <=8 Ceftriaxone S <=1 Cefuroxime I 16 Ciprofloxacin S <=1 Ertapenem S <=1 Gentamicin S <=4 Imipenem S <=1 Levofloxacin S <=2 Nitrofurantoin S <=32 Tobramycin S <=4 Trimeth/Sulfa S <=2/38 Pip/Tazo S <=16 S = SENSITIVE I = INTERMEDIATE R = RESISTANT PG Care Time/CCT Total # of Minutes Spent Total Time Spent with Patient: Total time spent is greater than 50% in coordination of care (as documented) at patient's floor/unit and/or counseling patient: (1) Urinary tract infection Hematuria presence: without hematuria Urinary tract infection type: acute cystitis Qualified Code(s): N30.00 - Acute cystitis without hematuria (2) Dementia Dementia behavioral disturbance: with behavioral disturbance Dementia type: unspecified type Qualified Code(s): F03.91 - Unspecified dementia with behavioral disturbance (3) Hypertension Hypertension type: essential hypertension Qualified Code(s): I10 - Essential (primary) hypertension (4) Fall Encounter type: initial encounter Qualified Code(s): W19.XXXA - Unspecified fall, initial encounter
[2019-07-21] MEDS: CIPROFLOXACIN 500 MG TAB PO SCH (21:00)
[2019-07-21] MEDS: CARBIDOPA/LEVODOPA 50/200MG EXT REL TAB PO SCH (21:00)
[2019-07-22 07:08] LABS: Hematocrit (blood only) 35.8 % (37-47); Hemoglobin 12.3 g/dL (12.0-16.0); Mean Corpuscular Hemoglobin 33.5 pg (25-34); Mean Corpuscular Hgb Conc 34.4 g/dL (32-36); Mean Corpuscular Volume 97.5 fL (80-100); Mean Platelet Volume 9.7 fL (7.4-10.4); Platelet Count 257 K/uL (130-400); RDW Coefficient of Variation 13.4 % (11.5-14.5); RDW Standard Deviation 47.8 fL (36.4-46.3); Red Blood Count 3.67 M/uL (4.2-5.4); White Blood Count 4.58 K/uL (4.8-10.8)
[2019-07-22 07:38] LABS: BUN Creatinine Ratio 20.4 (10-20); Creatinine Clr Calc Pharmacy 82.7 ml/min; Est GFR (African American) 97.2; Est GFR (Non-African American) 83.9
[2019-07-22] MEDS: CIPROFLOXACIN 500 MG TAB PO SCH (09:02)
[2019-07-22] MEDS: ASPIRIN 81 MG ECTAB PO SCH (09:02)
[2019-07-22] MEDS: ENTACAPONE 200 MG TAB PO SCH ×2 (09:02→12:41)
[2019-07-22] MEDS: BACITRACIN OINT 15 GM TUBE EXT SCH (09:02)
[2019-07-22] MEDS: azaTHIOprine 50 MG TAB PO SCH (09:02)
[2019-07-22] MEDS: NYSTATIN OINT 15 GM TUBE EXT SCH (09:03)
[2019-07-22] MEDS: CARBIDOPA/LEVODOPA 25/100MG TAB PO SCH ×2 (09:03→12:41)
[2019-07-22] MEDS: AMANTADINE HCL 100 MG CAPSULE PO SCH (09:04)
[2019-07-22] MEDS: INSULIN ASPART 100 UNITS/ML 3 ML PEN SC SCH ×2 (09:11→12:41)
[2019-07-22] MEDS: INSULIN GLARGINE SOLOSTAR 100 UNITS/ML 3 ML PEN SC SCH (09:14)
--- NOTE | 2019-07-22 09:45 | Hospitalist Progress Note ---
Date of Service July 22, 2019 Assessment & Plan (1) Fall: * Appears to be a mechanical fall that is likely multifactorial from age, Parkinson's--> No indication of syncope. * PT/OT- recommending pt need for 24-hour skilled care for continued PT at SNF * CM for [facility] placement -- possible d/c today pending SNF authorization (2) Urinary tract infection: * Patient has 1+ leukocyte esterase in her urine and 4+ bacteria. Urine culture from 07/18 growing 2 Gram(-) bacilli. * Patient previously discharged on Keflex 500mg BID on 07/18 (initiated treatment on 07/15) * Discontinued Cetriaxone 07/21: * Transitioned to PO Cipro --> abx course will be completed on on 07/24. (3) Left leg pain: * Patient fell on left side prior to admission--> No fractures noted on imaging * Pain management with Percocet as needed (4) Dementia: * Complicated by parkinsons- patient diagnosed 4 years ago * Patient at baseline, and easily converses, albeit slowly * However, due to mobility issues currently, patient unable to be cared for at home --> will be discharged to [facility] this afternoon (5) Diabetes mellitus: * A1c is 7.0% this admission. * Hold metformin while patient is hospitalized * Sliding scale insulin * Glycemic control per pharmacy (6) Rash: * Improving * History of possible autoimmune rash (poss. pemphigus?) * Continue azathioprine & anti-fungal lotion * Continue Vistaril for itchiness and zinc ointment * Wound RN - ?fungal infection under R breast * Nystatin to affected area BID- will need continued treatment (7) Hypertension: * Stable * Per hx- not on home meds * BP is 118/70 currently (8) Parkinson disease: * Continue amantadine, carbidopa-levodopa * Switched to formulary meds as her Stalevo wasn't brought in; can restart it on discharge. (9) DVT prophylaxis: * SCDs - Low DVT risk per admission calculator Dispo: patient to be discharged to [facility] with daughter this afternoon pending insurance authorization Subjective Patient evaluated bedside this morning. She continues to have some pain in her left leg from her fall, but she states it has improved since admission. She does have some pain under her right breast, but confirms it is improving. The patient feels she is ready for discharge today and states her daughter should be able to transport her to [facility] this afternoon once insurance authorization obtained. Patient denies chest pain, shortness of breath, abdominal pain, n/v/d, melena, hematochezia, fever, chills, blurry vision, headache. Review of Systems Review of Systems: All systems reviewed & are unremarkable except as noted in HPI & below Physical Exam Constitutional: WD/WN, vitals as above + obese and cooperative; no acute distress Eyes: PERRL, conjunctivae normal, anicteric sclerae EOM intact bilaterally; no conjunctival abnormality ENMT: external ear and nose normal, oropharynx normal Neck: trachea midline, no thyromegaly normal visual inspection Respiratory: normal respiratory effort, lungs clear to auscultation no respiratory distress Cardiovascular: RRR, no murmur, no edema Vessels: dorsalis pedis pulses present Extremities: + pedal edema Chest (Breasts): Additional Comments: Erythema and budding lesions under lateral aspect of right breast. Serosanguineous drainage. Cream, bandage and gauze intact. Tender to palpation. Gastrointestinal (Abdomen): normal bowel sounds, soft, nontender, no hepatosplenomegaly Inspection/Auscultation: abdomen normal to inspection; abdomen not distended Musculoskeletal: no cyanosis or clubbing, extremities motor strength 5/5 Skin: no rashes, warm and dry Neurologic: patellar DTR's 2+ bilat, sensation intact moves all extremities and awake Psychiatric: A+Ox3, euthymic affect Orientation: alert, oriented to person and cooperative Lymphatic: no cervical or axillary lymphadenopathy Results & Data Vital Signs (Past 12 Hours) Vital Signs Temp Pulse Resp BP Pulse Ox 07/22/19 06:15 36.3 C L 81 18 118/70 94 07/21/19 23:19 36.6 C 85 20 133/81 94 Laboratory Results 07/22/19 07/22/19 07/22/19 Range/Units 07:31 06:30 06:30 WBC 4.58 L (4.8-10.8) K/uL RBC 3.67 L (4.2-5.4) M/uL Hgb 12.3 (12.0-16.0) g/dL Hct 35.8 L (37-47) % MCV 97.5 (80-100) fL MCH 33.5 (25-34) pg MCHC 34.4 (32-36) g/dL RDW Std Deviation 47.8 H (36.4-46.3) fL RDW Coeff of Segundo 13.4 (11.5-14.5) % Plt Count 257 (130-400) K/uL MPV 9.7 (7.4-10.4) fL Sodium 138 (136-145) mmol/L Potassium 4.0 (3.5-5.1) mmol/L Chloride 104 (98-107) mmol/L Carbon Dioxide 25 (21-32) mmol/L Anion Gap 9.0 (3-11) BUN 13 (7-18) mg/dl Creatinine 0.65 (0.6-1.2) mg/dl Est Cr Clr Drug Dosing 82.7 ml/min Est GFR ( Amer) 97.2 Est GFR (Non-Af Amer) 83.9 BUN/Creatinine Ratio 20.4 H (10-20) Glucose 149 H (70-99) mg/dl POC Glucose 152 H (70-99) Calcium 9.0 (8.5-10.1) mg/dl 07/21/19 07/21/19 07/21/19 Range/Units 19:49 16:28 12:01 WBC (4.8-10.8) K/uL RBC (4.2-5.4) M/uL Hgb (12.0-16.0) g/dL Hct (37-47) % MCV (80-100) fL MCH (25-34) pg MCHC (32-36) g/dL RDW Std Deviation (36.4-46.3) fL RDW Coeff of Segundo (11.5-14.5) % Plt Count (130-400) K/uL MPV (7.4-10.4) fL Sodium (136-145) mmol/L Potassium (3.5-5.1) mmol/L Chloride (98-107) mmol/L Carbon Dioxide (21-32) mmol/L Anion Gap (3-11) BUN (7-18) mg/dl Creatinine (0.6-1.2) mg/dl Est Cr Clr Drug Dosing ml/min Est GFR ( Amer) Est GFR (Non-Af Amer) BUN/Creatinine Ratio (10-20) Glucose (70-99) mg/dl POC Glucose 163 H 233 H 131 H (70-99) Calcium (8.5-10.1) mg/dl 07/21/19 Range/Units 09:06 WBC (4.8-10.8) K/uL RBC (4.2-5.4) M/uL Hgb (12.0-16.0) g/dL Hct (37-47) % MCV (80-100) fL MCH (25-34) pg MCHC (32-36) g/dL RDW Std Deviation (36.4-46.3) fL RDW Coeff of Segundo (11.5-14.5) % Plt Count (130-400) K/uL MPV (7.4-10.4) fL Sodium 134 L (136-145) mmol/L Potassium 3.8 (3.5-5.1) mmol/L Chloride 100 (98-107) mmol/L Carbon Dioxide 24 (21-32) mmol/L Anion Gap 10.0 (3-11) BUN 15 (7-18) mg/dl Creatinine 0.89 (0.6-1.2) mg/dl Est Cr Clr Drug Dosing 60.4 ml/min Est GFR ( Amer) 70.9 Est GFR (Non-Af Amer) 61.2 BUN/Creatinine Ratio 16.6 (10-20) Glucose 255 H (70-99) mg/dl POC Glucose (70-99) Calcium 9.7 (8.5-10.1) mg/dl PG Care Time/CCT Total # of Minutes Spent Total Time Spent with Patient: Total time spent is greater than 50% in coordination of care (as documented) at patient's floor/unit and/or counseling patient: (1) Urinary tract infection Hematuria presence: without hematuria Urinary tract infection type: acute cystitis Qualified Code(s): N30.00 - Acute cystitis without hematuria (2) Dementia Dementia behavioral disturbance: with behavioral disturbance Dementia type: unspecified type Qualified Code(s): F03.91 - Unspecified dementia with behavioral disturbance (3) Hypertension Hypertension type: essential hypertension Qualified Code(s): I10 - Essential (primary) hypertension (4) Fall Encounter type: initial encounter Qualified Code(s): W19.XXXA - Unspecified fall, initial encounter
--- NOTE | 2019-07-22 14:03 | Discharge Summary ---
Date of Service July 22, 2019 Admission HPI Per Admitting Provider Patient is a 79 years old female with past medical history of hypertension, gait disorder, diabetes type 2 metabolic encephalopathy who was brought by EMS because of her fall this morning on the left side injuring her left hip. Patient is poor historian and family is not present at her bedside. Review of system is impossible since patient is not appropriately responding to questions since she is severely affected by dementia. In the ER patient was treated with 1 L of normal saline, urine cultures are collected, and she also had radiographic surveillance for possible fracture. X-rays on left knee shows osteopenia, tricompartmental degenerative changes most severe in the medial compartment. But no acute osseous injury pelvis hip on the left side shows in determined oblique lucency involving intratrochanteric left femur. Non- distracted fracture is not included which was then confirmed by CT that there was no fracture. CT of the head shows no intracranial abnormalities. Left femur x-ray shows again osteopenia but no osseous injury. There is a tricompartmental degenerative changes of the left knee. Mild degenerative changes of the left hip. Chest x-ray shows cardiomegaly no other convincing ev idence of acute cardiopulmonary disease. Cervical spine no acute osseous injuries of the cervical spine, mild degenerative changes. Left ankle shows osteopenia and overlapping external covering at the calcaneus an acute osseous injury of the calcaneus cannot be excluded. X-rays of the calcaneus : Calcaneal spurring, no acute fracture identified. Decision was made to admit patient for observation on telemetry for pain management, physical therapy and Occupational Therapy in her transit to senior living Admission Exam Per Admitting Provider Constitutional: WD/WN, vitals as above well developed, + disheveled and + in distress Eyes: PERRL, conjunctivae normal, anicteric sclerae ENMT: external ear and nose normal, oropharynx normal Neck: trachea midline, no thyromegaly Respiratory: normal respiratory effort, lungs clear to auscultation Cardiovascular: RRR, no murmur, no edema Vessels: dorsalis pedis pulses present Extremities: + pedal edema Gastrointestinal (Abdomen): normal bowel sounds, soft, nontender, no hepatosplenomegaly Musculoskeletal: no cyanosis or clubbing, extremities motor strength 5/5 Skin: no rashes, warm and dry Neurologic: patellar DTR's 2+ bilat, sensation intact Psychiatric: A+Ox3, euthymic affect Lymphatic: no cervical or axillary lymphadenopathy Principal Diagnosis Mechanical Fall, UTI Discharge Exam Constitutional WD/WN, vitals as above + obese and cooperative; no acute distress Eyes PERRL, conjunctivae normal, anicteric sclerae EOM intact bilaterally; no conjunctival abnormality ENMT external ear and nose normal, oropharynx normal Neck trachea midline, no thyromegaly normal visual inspection Respiratory normal respiratory effort, lungs clear to auscultation no respiratory distress Cardiovascular RRR, no murmur, no edema Vessels: dorsalis pedis pulses present Extremities: + pedal edema Chest (Breasts) Additional Comments: erythematous budding lesion under lateral aspect of right breast- serosanguineous drainage. nystatin and dressing/gauze intact. Gastrointestinal (Abdomen) normal bowel sounds, soft, nontender, no hepatosplenomegaly Inspection/Auscultation: abdomen normal to inspection; abdomen not distended Musculoskeletal no cyanosis or clubbing, extremities motor strength 5/5 Skin no rashes, warm and dry Neurologic patellar DTR's 2+ bilat, sensation intact moves all extremities and awake Psychiatric A+Ox3, euthymic affect Orientation: alert, oriented to person and cooperative Lymphatic no cervical or axillary lymphadenopathy Discharge Data Allergies Allergy/AdvReac Type Severity Reaction Status Date / Time No Known Allergies Allergy Unverified 07/18/19 10:25 Consultations 07/18/19 11:47 ED Decision to Admit Stat Ordered Studies 07/18/19 09:55 CT cervical spine wo con Stat IMPRESSION: 1. No acute osseous injury of the cervical spine. 2. Multilevel degenerative changes. CT head/brain wo con Stat IMPRESSION: 1. No acute intracranial findings. 2. No calvarial fracture. 07/18/19 11:03 CT hip LT wo con Stat IMPRESSION: No fracture is identified. The questioned radiographic abnormality was likely artifactual. Tibia/Fibula X-Ray IMPRESSION: No definite fracture within the left tibia or fibula. Subtle contour abnormality of the proximal shaft of the left fibula is likely chronic. However, short-term follow-up radiographs are recommended to exclude the less likely possibility of a nondisplaced fracture. US Venous Doppler Left LE IMPRESSION: No DVT within the left lower extremity. Knee (L) X-Ray IMPRESSION: 1. Allowing for osteopenia and suboptimal positioning, no acute osseous injury. 2. Tricompartmental degenerative changes most severe in the medial compartment. Femur X-ray IMPRESSION: 1. Allowing for the degree of osteopenia, no acute osseous injury. 2. Advanced tricompartmental degenerative changes of the left knee. 3. Mild degenerative changes of the left hip. Hospital Course (1) Fall: * Appears to be a mechanical fall that is likely multifactorial from age, Parkinson's without indication of syncope. Patient with decreased mobility due to advancing Parkinsons. Due to this, as well as PT/OT recommendations, patient to be discharged to [facility] for senior living at this time. * Patient was found to have UTI on admission: 1+ leukocyte esterase in her urine and 4+ bacteria. Urine culture from 07/18 growing 2 Gram(-) bacilli, and patient initially discharged on Keflex 500mg BID on 07/18. Patient currently on Cipro due to C/S on most recent culture, positive for klebsiella oxytoca. Ant ibiotic course to be completed on 07/24. * Patient also found with fungal lesions lateral aspect of right breast- Nystatin BID * Imaging as above (2) Urinary tract infection: * As above (3) Left leg pain: * As above (4) Dementia: * Complicated by parkinsons- patient diagnosed 4 years ago * Patient at baseline, and easily converses, albeit slowly * However, due to mobility issues currently, patient unable to be cared for at home (5) Diabetes mellitus: * A1c is 7.0% this admission. SSI while inpatient. Metformin to be resumed upon discharge. (6) Rash: * Improving- possible history of autoimmune rash. * Patient found with budding lesion lateral aspect right breast- continued on azathioprine and Nystatin BID. Wound RN on consult during admission. (7) Hypertension: * Stable * Per hx- not on home meds * BP is 118/70 currently (8) Parkinson disease: * Continue amantadine, carbidopa-levodopa * Switched to formulary meds as her Stalevo wasn't brought in (9) DVT prophylaxis: * SCDs during admission with low DVT risk per admission calculator Total Time Total Time Spent Total Time Spent (In Minutes): 60 Discharge Plan Discharge Items Patient Disposition: Transfer [facility] Reason For Visit: FALL GENERALIZED WEAKNESS Discharge Diagnosis: UTI, Fall Goals: Prevent infection Improve mobility, function and quality of life Activity: Per Instructions section Exercise/Sports: As tolerated Non-emergency contact: Primary Care Provider Call non-emergency contact if: you have any medication questions Follow-up/Referrals: Kojo Cohen [Primary Care Provider] - Diet: Carb Consistent or DM2 and Heart Healthy Addtl Attending Provider Instructions: You are being discharged with a prescription for Ciprofloxacin 500mg twice a day for your UTI- please take this medication as prescribed until your course of treatment is complete on July 24, 2019. You are also being given a prescription for Nystatin for the infection under your right breast- this should be applied topically twice per day Please keep this area clean and dry to prevent further infection/spread. You are being discharged to a senior living facility for further therapy to regain strength due to decreased mobility with your advancing Parkinson's. You should be seen by your primary care provider in the next 7-10 days. It was a pleasure taking part in your care during this hospitalization, thank you. Please return to [facility] emergency room if you have any worsening of symptoms, fever, uncontrolled pain, or for any symptoms that you find concerning. Pending Studies at Discharge: No Stand-Alone Forms: My [facility] Skilled Items Patient informed of condition?: Yes DNR: No Discharge Level of Care: Skilled Communicable Disease: No Discharge Prognosis: Stable Lines: None Urinary Catheter: No Medications and DC Order Prescriptions: New nystatin 100,000 unit/gram Ointment 1 applic EXT BID Qty: 1 RF: 0 ciprofloxacin HCl 500 mg Tablet 500 mg PO BID Qty: 5 RF: 0 Continued Desenex 2 % Powder 1 applic TOPICAL BID PRN (Reason: Rash) RF: 0 metformin [Glucophage] 850 mg tablet 850 mg PO BID RF: 0 azathioprine [Imuran] 50 mg tablet 50 mg PO DAILY RF: 0 tramadol [Ultram] 50 mg tablet 50 mg PO Q6 PRN (Reason: Pain) RF: 0 amantadine HCl 100 mg capsule 100 mg PO BID RF: 0 triamcinolone acetonide 0.1 % Cream 1 applic TOPICAL BID PRN (Reason: Rash) RF: 0 cyanocobalamin (vitamin B-12) 1,000 mcg/mL Solution 1,000 mcg IM MONTHLY RF: 0 polyethylene glycol 3350 [Miralax] 17 gram/dose Powder 1 dose PO DAILY PRN (Reason: Constipation) RF: 0 oykxhbhgy-nxrhiypr-etbolkploi [Stalevo 200] 50-200-200 mg tablet 1 tab PO QID RF: 0 Adult Multivitamin Gummies 200 mcg Tablet,Chewable 2 tabs PO DAILY RF: 0 aspirin [Aspir-81] 81 mg Tablet,Delayed Release (Dr/Ec) 81 mg PO DAILY RF: 0 acetaminophen [Tylenol Extra Strength] 500 mg Tablet 500 mg PO QID PRN (Reason: Pain) RF: 0 carbidopa-levodopa 50-200 mg Tablet Extended Release 1 tab PO HS RF: 0 Discharge Orders: Discharge Order (Routine); Ordered 07/22/19 Ordered By: Antonella Sorensen Admission Data Admit Date/Time: 07/20/19 14:48 Attending Provider: Demian Dean Admit Provider: María Elena Cespedes Primary Care Provider: Kojo Cohen Other Interventions: Discharge Summary Assessment (RN) Last Done: 07/22/19 14:40 DC Date/Time DO NOT enter until pt leaves facility: 07/22/19 15:40 Supervising Physician Co-Signing Physician Notes Attending Attestation and Discharge Note: Pt seen/examined, chart reviewed, discharge care plan d/w PA Antonella Sorensen. I agree w/ the basurto components of her discharge documentation. 79yo female with history of parkinson's disease who present after a fall resulting in left leg pain. Found to have UTI during this admission. Fortunately all imaging studies did not show acute fracture. PT/OT evals were done, and rehab was recommended; thus, patient will d/c to [facility] for such. She will finish a course of PO abx for her UTI. VSS gen - NAD heart - RRR lungs - CTA b/l abd - soft ext - pulses 2+b/l skin - intertriginous region of right breast - erythematous rash with macerated skin A/P: 1. recent fall with resulting LLE pain; no obvious fractures on extensive im aging 2. PD 3. UTI - finish course of PO antibiotics 4. LLE pain - suspect soft tissue injury/contusion in setting of her all 5. right breast rash - candidal? d/c to [facility] for rehab Demian Dean MD
== END 2019-07-22 15:40 | DRG 92 ==
LOC: 2S 09:44 → ED 09:44 → SUATTDRO 12:39 → 2S 13:24 → 4W 07-20 13:54 → SUATTDRO 07-20 14:48

== ENCOUNTER 2020-04-13 14:09 | Inpatient (IN) ==
[2020-04-13] MEDS ORDERED: SODIUM CHLORIDE 0.9% 1000ML 2,000 ML IV ONE (14:27)
[2020-04-13] MEDS ORDERED: CEFEPIME 20 ML IV ONE (14:45)
[2020-04-13] MEDS ORDERED: SODIUM CHLORIDE 0.9% 500 ML IV ONE (14:45)
[2020-04-13 14:49] LABS: Basophils # (auto) 0.04 K/uL (0-0.2); Basophils % (auto) 0.4 %; Eosinophils # (auto) 0.42 K/uL (0-0.5); Eosinophils % (auto) 3.9 %; Hemoglobin 12.3 g/dL (12.0-16.0); Immature Granulocytes # (auto) 0.03 K/uL (0.00-0.02); Immature Granulocytes % (auto) 0.3 %; Lymphocytes # (auto) 1.59 K/uL (1.2-3.4); Lymphocytes % (auto) 14.6 %; Mean Corpuscular Hemoglobin 32.1 pg (25-34); Mean Corpuscular Hgb Conc 33.2 g/dL (32-36); Mean Corpuscular Volume 96.6 fL (80-100); Mean Platelet Volume 9.8 fL (7.4-10.4); Monocytes # (auto) 1.16 K/uL (0.11-0.59); Monocytes % (auto) 10.7 %; Neutrophils # (auto) 7.65 K/uL (1.4-6.5); Neutrophils % (auto) 70.1 %; Platelet Count 342 K/uL (130-400); RDW Standard Deviation 49.9 fL (36.4-46.3); Red Blood Count 3.83 M/uL (4.2-5.4); White Blood Count 10.89 K/uL (4.8-10.8)
[2020-04-13 14:56] LABS: INR 1.1 (0.9-1.1); Partial Thromboplastin Time 27.6 Seconds (21.0-31.0); Prothrombin Time 11.2 Seconds (9.0-12.0)
[2020-04-13 14:59] LABS: Base Excess VBG 0.5 mEq/L; Oxygen Saturation VBG 86.3 %; pH VBG 7.43 (7.36-7.41)
[2020-04-13 15:02] LABS: Albumin Level 3.4 gm/dl (3.4-5.0); BUN Creatinine Ratio 23.4 (10-20); Creatinine Clr Calc Pharmacy 62.2 ml/min; Est GFR (African American) 81.4; Est GFR (Non-African American) 70.2; Potassium 3.9 mmol/L (3.5-5.1)
[2020-04-13 15:05] LABS: Albumin Globulin Ratio 0.9 (0.9-2); Bilirubin,Total 0.3 mg/dl (0.2-1); Globulin 3.6 gm/dl (2.5-4.0)
[2020-04-13 15:09] LABS: Appearance Urine Clear (Clear); Bacteria Urine Automated 3+ (Negative); Bilirubin Urine Negative (Negative); Blood Urine Negative (Negative); Color Urine Dark Yellow; Epithelial Cell Urine Auto >30 /lpf (0-5); Glucose Urine UA Negative (Negative); Ketones Urine Trace (Negative); Leukocyte Esterase Urine 1+ (Negative); Nitrite Urine Positive (Negative); Protein Urine Negative (Negative); RBC Urine Automated 0-4 /hpf (0-4); Specific Gravity Urine 1.022 (1.000-1.030); Urobilinogen Urine Negative (Negative)
--- NOTE | 2020-04-13 15:32 | CT Scan Report ---
CT SCAN OF THE BRAIN WITHOUT IV CONTRAST CLINICAL HISTORY: Recurrent falls. COMPARISON STUDY: CT of the brain dated 07/18/2019. TECHNIQUE: Unenhanced axial CT scan of the brain is performed from the vertex to the skull base. A do se lowering technique was utilized adhering to the principles of ALARA. The examination is degraded b y motion artifact. The patient was scanned twice in an effort to improve image quality. CT DOSE: 1647.88 mGycm FINDINGS: Brain parenchyma: There are age-related involutional changes noting mild subcortical and periventric ular microangiopathic change. There is no hemorrhage, mass effect, or evidence of acute territorial i schemia by CT criteria. Arevalo-white matter differentiation is preserved. No extra-axial fluid collecti on is seen. Ventricles, sulci, cisterns: Prominent secondary to involutional change. Intracranial vasculature: There is atherosclerotic calcification of the cavernous carotid arteries. Calvarium: The skeletal structures are osteopenic. No depressed calvarial fracture is identified. Sinuses and mastoids: The visualized paranasal sinuses are clear. The mastoid air cells are well pneu matized. Orbits: The bony orbits are grossly intact. There are bilateral ocular lens implants. IMPRESSION: There is no hemorrhage, mass effect, or evidence of acute territorial ischemia by CT crit kasia. ACT 112: Negative or not required by law. Electronically signed by: Rodo Ramos M.D. 04/13/2020 3:30 PM
--- NOTE | 2020-04-13 15:42 | XRay Report ---
XR chest 1V portable CLINICAL HISTORY: SEPSIS dyspnea COMPARISON STUDY: 07/18/2019 FINDINGS: Parenchymal infiltrate left lung base. Lungs otherwise appear clear. Diaphragms are smooth. Heart top normal terms of size. IMPRESSION: Infiltrate left base. ACT 112: Negative or not required by law. The above report was generated using voice recognition software. It may contain grammatical, syntax or spelling errors. Electronically signed by: Lewis Wilcox M.D. 04/13/2020 3:40 PM
[2020-04-13] MEDS ORDERED: POLYETHYLENE (MIRALAX) 17 GM PACK PO PRN (15:56)
--- NOTE | 2020-04-13 15:56 | History & Physical Report ---
Date of Service April 13, 2020 Assessment & Plan (1) Metabolic encephalopathy: Patient was sent to the ER by family for altered mental sensorium decreased eating and drinking minor coughing when eating although nonproductive and concerns of foul-smelling urine for recurrent urinary infection for which she was septic in the past. Patient was cultured in the ER and chest x-ray showed possible left lower lobe infiltrate due to inability to see through cardiac silhouette. She was given cefepime in the ER this will be transitioned to Rocephin and doxycycline to cover for community associated pneumonia and also urinary infection. Her last UTI was Klebsiella which was sensitive to ceftria xone. The patient initially low blood pressure was concern for septic however this was an automatic blood pressure reading and manual blood pressure was stable. The patient however did receive volume resuscitation and does have a modest elevation of lactic acid at 3.1. This is currently pending a repeat eval. consideration of speech evaluation as dysphagia is associated with her Parkinson's disease and/or CT scan of her chest to further evaluate if pneumonia is present or not could be considered . (2) Left lower lobe pneumonia: As mentioned this is a radiological finding the coughing is been only 1 day and will be difficult to believe that she is got a pneumonia from 1 day worth of coughing however speech therapy will be ordered to evaluate her swallowing given her she is got Parkinson's disease and is at risk for dysphasia. (3) Diabetes mellitus: This patient typically takes metformin this will be held sliding scale insulin 1 and a carbohydrate conservative diet will be ordered (4) Parkinson disease: Patient has significant movement issues because of her Parkinson's disease we will continue her Sinemet and her amantadine. PT OT will be ordered (5) Hypertension: (6) Bullous pemphigoid: Patient diagnosed with autoimmune rash in February 2019 her family states it was bullous pemphigoid she continues on azathioprine. She most recently had a one-month pulse of steroid therapy due to an outbreak of this rash upon her body. (7) DVT prophylaxis: Lovenox will be used Patient is a full code (8) Intertrigo: Patient has left groin intertrigo nystatin powder will be ordered History of Present Illness Primary Care Provider: Kojo Cohen Patient presented to the ER feeling ill with complaints of warning about being septic again. Initially her blood pressure was found to be low but this was by the automated reading and manual blood pressure did not reveal any significant low numbers. Patient was initially given cefepime and volume resuscitation with crystalloid. Her initial lactic acid was elevated 3.1 the remainder of her laboratories are not significantly out of alignment with a white count of 10 BUN/creatinine of 19 and 0.79 and a bicarbonate on serum of 22. She is an abnormal urinalysis and abnormal chest x-ray. She had a urinary tract infection in July 2019 Which showed Klebsiella resistant to cefazolin and intermediate to his Cefuroxime Patient had blood and urine culture sent patient will be continued on ceftriaxone and azithromycin to cover both possible community associated pneumonia and perhaps a urinary pathogen awaiting culture results Allergies Allergy/AdvReac Type Severity Reaction Status Date / Time No Known Allergies Allergy Unverified 07/18/19 10:25 Home Medications Home Medications Medication Instructions Recorded Confirmed Type Adult Multivitamin Gummies 2 tabs PO DAILY 07/14/18 07/18/19 History Desenex 1 applic TOPICAL BID PRN 07/14/18 04/13/20 History acetaminophen [Tylenol Extra 500 mg PO QID PRN 07/14/18 04/13/20 History Strength] amantadine HCl 100 mg PO BID 07/14/18 07/18/19 History aspirin [Aspir-81] 81 mg PO DAILY 07/14/18 07/18/19 History azathioprine [Imuran] 50 mg PO DAILY 07/14/18 07/18/19 History ioxfpqlwg-skwrvvcd-isgpsjomrf 1 tab PO QID 07/14/18 07/18/19 History [Stalevo 200] cyanocobalamin (vitamin B-12) 1,000 mcg IM MONTHLY 07/14/18 04/13/20 History metformin [Glucophage] 850 mg PO BID 07/14/18 07/18/19 History polyethylene glycol 3350 [Miralax] 1 dose PO DAILY PRN 07/14/18 04/13/20 History tramadol [Ultram] 50 mg PO Q6 PRN 07/14/18 04/13/20 History triamcinolone acetonide 1 applic TOPICAL BID PRN 07/14/18 07/18/19 History carbidopa-levodopa 1 tab PO HS 07/18/19 07/18/19 History ciprofloxacin HCl 500 mg PO BID #5 tab 07/22/19 Rx nystatin 1 applic EXT BID #1 g 07/22/19 Rx Past Med/Surg History Medical History Diabetes Hypertension (Chronic) Parkinson disease (Chronic) Paroxysmal atrial fibrillation QT prolongation Urinary tract infection (Acute) Family History Other Aneurysm Stroke Social History Preferred Language: Polish Communication Ability: Effective Referral And Information Aide Required: No Beliefs That Will Affect Care: None Current Living Situation: Family Current Living Situation Comment: lives with daughter Feels Safe at Home: Yes Smoking Status: Never smoker Hx Alcohol Use: No Hx Substance Use: No Review of Systems Review of Systems: Mild distress and increasing fatigue no headache, blurry or double vision Family reports some swallowing issues today no chest pain, pressure or palpitations no shortness of breath, mild nonproductive cough when eating no abdominal pain, nausea or vomiting, diarrhea or constipation no dysuria, hematuria or frequency foul-smelling urine with concern for UTI no focal joint pain or swelling no back pain, CVA tenderness or radicular pain no bruising, bleeding or rashes no focal signs of weakness or numbness family states increased confusion no complaints or anxiety or depression. Physical Exam Physical Exam: The patient appeared to have significant limitations from movement disorder Parkinson's disease Vital signs as documented. It is to be noted that automatic blood pressures are typically lower while manual blood pressures are more accurate Head exam is normocephalic atraumatic no scleral icterus Neck is without JVD, thyromegaly, or carotid bruits. Lungs are diminished at the bilateral bases but no focal air loss Cardiac exam, Rhythm is regular.. No murmurs, rubs or gallops. Abdominal exam reveals normal bowel sounds, soft non tender, no masses no suprapubic tenderness no CVA tenderness Extremities are nonedematous and both pedal pulses are normal. Neurologic exam is alert and oriented x2, she can hold a conversation she has movement disorder and cannot stay still Skin is without bruises she has a fine rash with looks like tinea versicolor on her chest no traces of bullous pemphigoid which she has a history of Results & Data Results & Data ([facility]) Vital Signs (Past 12 Hours) Vital Signs Temp Pulse Pulse Resp BP Pulse Ox 04/13/20 15:31 99 06/30/20 14:58 97.5 F L 04/13/20 14:41 92 H 20 115/70 99 04/13/20 14:30 90 20 100/68 94 04/13/20 14:19 97 H 49/39 L 95 04/13/20 14:15 98.2 F 99 H 26 H 96 Chest x-ray 04/13/2020 possible left lower lobe infiltrate CT head 04/13/2020 No acute hemorrhage mass-effect or evidence of ischemia EKG shows sinus rhythm PG Care Time/CCT Total # of Minutes Spent Total Time Spent with Patient: Total time spent is greater than 50% in coordination of care (as documented) at patient's floor/unit and/or counseling patient: Coding Level of Care Code 69807 Initial Inpt Care Lvl 3 Diagnoses Metabolic encephalopathy G93.41 Left lower lobe pneumonia J18.9 Diabetes mellitus E11.9 Parkinson disease G20 Hypertension I10 Hypertension type: essential hypertension Bullous pemphigoid L12.0 DVT prophylaxis Z29.9 Intertrigo L30.4 (1) Hypertension Hypertension type: essential hypertension Qualified Code(s): I10 - Essential (primary) hypertension
[2020-04-13] MEDS ORDERED: ONDANSETRON INJ 2 MG/ML 2 ML VIAL IV PRN (16:00)
[2020-04-13] MEDS ORDERED: ALUMINUM/MAGNESIUM SUSP 30 ML UDC PO PRN (16:00)
[2020-04-13] MEDS ORDERED: ACETAMINOPHEN 325 MG TAB PO PRN (16:00)
--- NOTE | 2020-04-13 16:02 | Emergency Department Note ---
History of Present Illness General Chief complaint: Urinary Symptoms Stated complaint: sepsis Time Seen by Provider: 04/13/20 14:22 History of Present Illness Provider complaint: Sepsis Onset (ago): day(s) 1 80-year-old female with a history of Parkinson's disease, diabetes, recurrent falls, as well as recurrent UTIs presents emergency department for weakness. P richardanastasia reports she "feels septic". Patient reports she has had a history of sepsis in the past. She denies any recent falls. She denies any chest pain or difficulty breathing. No hematuria or dysuria. Patient reports that she has been having foul-smelling urine. She also reports that her tremors have worsened which is usually a sign of her sepsis. Home Medications Home Medications Medication Instructions Recorded Confirmed Type Adult Multivitamin Gummies 2 tabs PO DAILY 07/14/18 07/18/19 History Desenex 1 applic TOPICAL BID PRN 07/14/18 04/13/20 History acetaminophen [Tylenol Extra 500 mg PO QID PRN 07/14/18 04/13/20 History Strength] amantadine HCl 100 mg PO BID 07/14/18 07/18/19 History aspirin [Aspir-81] 81 mg PO DAILY 07/14/18 07/18/19 History azathioprine [Imuran] 50 mg PO DAILY 07/14/18 07/18/19 History uttrkngtf-fzxrraln-ihhumzthom 1 tab PO QID 07/14/18 07/18/19 History [Stalevo 200] cyanocobalamin (vitamin B-12) 1,000 mcg IM MONTHLY 07/14/18 04/13/20 History metformin [Glucophage] 850 mg PO BID 07/14/18 07/18/19 History polyethylene glycol 3350 [Miralax] 1 dose PO DAILY PRN 07/14/18 04/13/20 History tramadol [Ultram] 50 mg PO Q6 PRN 07/14/18 04/13/20 History triamcinolone acetonide 1 applic TOPICAL BID PRN 07/14/18 07/18/19 History carbidopa-levodopa 1 tab PO HS 07/18/19 07/18/19 History ciprofloxacin HCl 500 mg PO BID #5 tab 07/22/19 Rx nystatin 1 applic EXT BID #1 g 07/22/19 Rx Allergies Allergy/AdvReac Type Severity Reaction Status Date / Time No Known Allergies Allergy Unverified 07/18/19 10:25 Past Med/Surg History Medical History Diabetes Hypertension (Chronic) Parkinson disease (Chronic) Paroxysmal atrial fibrillation QT prolongation Urinary tract infection (Acute) Family History Other Aneurysm Stroke Social History Preferred Language: Azerbaijani Communication Ability: Effective Etiologist Required: No Beliefs That Will Affect Care: None Current Living Situation: Family Current Living Situation Comment: lives with daughter Feels Safe at Home: Yes Smoking Status: Never smoker Hx Alcohol Use: No Hx Substance Use: No Review of Systems A total of 10 systems reviewed and were otherwise negative Physical Exam Vital Signs Vital Signs - 24 hr 04/13/20 14:15 04/13/20 14:19 04/13/20 14:30 Temperature 36.8 C Temperature Source Axillary Pulse Rate 99 H Pulse Rate [Right Finger] 97 H 90 Pulse Rhythm [Right Finger] Regular Respiratory Rate 26 H 20 Respiratory Effort / Characteristics Spontaneous Respiratory Depth Normal Respiratory Pattern Regular Blood Pressure [Right Arm] 49/39 L 100/68 Blood Pressure Mean [Right Arm] 42 78 Pulse Oximetry 96 95 94 Oxygen Delivery Method Room Air Room Air Nasal Cannula Oxygen Flow Rate 2 Sepsis Recent Fever Within 48 Hours No Sepsis Action Taken by Nursing No Action Required 04/13/20 14:41 04/13/20 14:58 04/13/20 15:11 Temperature 36.4 C L Temperature Source Rectal Pulse Rate Pulse Rate [Right Finger] 92 H Pulse Rhythm [Right Finger] Regular Respiratory Rate 20 Respiratory Effort / Characteristics Spontaneous Respiratory Depth Respiratory Pattern Regular Blood Pressure [Right Arm] 115/70 122/74 Blood Pressure Mean [Right Arm] 85 90 Pulse Oximetry 99 Oxygen Delivery Method Nasal Cannula Oxygen Flow Rate 2 Sepsis Recent Fever Within 48 Hours Sepsis Action Taken by Nursing 04/13/20 15:31 04/13/20 15:59 04/13/20 16:23 Temperature Temperature Source Pulse Rate Pulse Rate [Right Finger] 98 H 91 H Pulse Rhythm [Right Finger] Regular Regular Respiratory Rate 19 18 Respiratory Effort / Characteristics Spontaneous Non-Labored Spontaneous Respiratory Depth Normal Normal Respiratory Pattern Regular Regular Blood Pressure [Right Arm] 126/68 118/66 Blood Pressure Mean [Right Arm] 87 83 Pulse Oximetry 99 98 99 Oxygen Delivery Method Nasal Cannula Room Air Oxygen Flow Rate 2 Sepsis Recent Fever Within 48 Hours Sepsis Action Taken by Nursing Physical Exam GENERAL: She is oriented to person, place, and time. EYES: Conjunctivae and EOM are normal. Pupils are equal, round, and reactive to light. Right eye exhibits no discharge. Left eye exhibits no discharge. No scleral icterus. NECK: Normal range of motion. Neck supple. No JVD present. No spinous process tenderness present. No carotid bruit present. No rigidity. No tracheal deviation and normal range of motion present. No Brudzinski's sign and no Kernig's sign noted. CV: Normal rate, regular rhythm, normal heart sounds and intact distal pulses. There is no peripheral edema. Palpable radial pulses bue. PULM/CHEST: Effort normal and breath sounds normal. No respiratory distress. No stridor. She has no wheezes. She has no rales. -Chest Wall: She exhibits no tenderness. ABD: The abdomen is soft. Bowel sounds are normal. She has no distension. No mass is present. There is no tenderness. There is no rebound, no guarding, no Garcia's sign and no tenderness at McBurney's point. Rovsig negative MUSC/SKEL: Normal range of motion. There is no peripheral edema, tenderness or deformity. LYMPH: No cervical adenopathy. NEURO: Patient has tremor at baseline and is flailing her arms and legs SKIN: Skin is warm and dry. She is not diaphoretic. PSYCH: She has a normal mood and affect. Behavior is normal. Judgment and thought content normal. Course Course 1420: The patient was evaluated in room A3. A complete history and physical exam was performed. Called to bedside by nursing as the patient was marked priority patient for low blood pressure. On arrival in the room A3, the patient had a automatic blood pressure 49/39. The patient was moved to the resuscitation bay room B1 and Code sepsis was called. A manual blood pressure was obtained which was within normal limits. Given the patient's history of recurrent UTIs, cefepime was ordered as well as a 30 cc/kg bolus based off her ideal body weight. Bedside danielson exam showed no pneumothorax bilaterally, no AAA, no free fluid in the abdomen, it did show a collapsed IVC. 1618: Vital signs stable. Patient's urine does show signs of infection. CT of the head within normal limits. Chest x-ray showed infiltrate at left base. In addition to the cefepime the patient will be given vancomycin. Patient will be admitted to the hospital for sepsis. Her lactic acid is elevated 3.1. Mild leukocytosis of 10.89. [facility]. Administered Medications Discontinued Medications Sodium Chloride (Nss 1000ml) 2,000 mls @ 999 mls/hr IV .Q2H1M ONE Stop: 04/13/20 16:27 Last Admin: 04/13/20 15:37 Dose: 999 mls/hr Documented by: [id number] Sodium Chloride (Nss) 500 mls @ 999 mls/hr IV .Q31M ONE Stop: 04/13/20 15:15 Last Admin: 04/13/20 15:38 Dose: Not Given Documented by: [id number] Cefepime HCl (Maxipime) 20 mls @ 5 mls/min IV NOW ONE Stop: 04/13/20 14:48 Last Admin: 04/13/20 14:36 Dose: 5 mls/min Documented by: [id number] Critical Care Time Critical Care Time: Yes Total Critical Care Time: 42 I have personally spent greater than 42 minutes of critical care time in the direct management of this patient. This includes bedside care, interpretation of diagnostic studies, and testing, discussion with consultants, patient, and family members, and other required patient management activities. This 42 minutes is in excess of all separately billable procedures. Medical Decision Making Laboratory Data Result diagrams: 04/13/20 14:36 04/13/20 14:25 Lab Results 04/13/20 04/13/20 04/13/20 Range/Units 14:25 14:25 14:32 WBC (4.8-10.8) K/uL RBC (4.2-5.4) M/uL Hgb (12.0-16.0) g/dL Hct (37-47) % MCV (80-100) fL MCH (25-34) pg MCHC (32-36) g/dL RDW Std Deviation (36.4-46.3) fL RDW Coeff of Segundo (11.5-14.5) % Plt Count (130-400) K/uL MPV (7.4-10.4) fL Immature Gran % (Auto) % Neut % (Auto) % Lymph % (Auto) % [place] % (Auto) % Eos % (Auto) % Baso % (Auto) % Neut # (Auto) (1.4-6.5) K/uL Lymph # (Auto) (1.2-3.4) K/uL [place] # (Auto) (0.11-0.59) K/uL Eos # (Auto) (0-0.5) K/uL Baso # (Auto) (0-0.2) K/uL Immature Gran # (Auto) (0.00-0.02) K/uL PT 11.2 (9.0-12.0) Seconds INR 1.1 (0.9-1.1) APTT 27.6 (21.0-31.0) Seconds PTT Ratio 1.0 VBG pH (7.36-7.41) VBG pCO2 (38-50) mmHg VBG pO2 mmHg VBG HCO3 mmol/L VBG O2 Saturation % VBG Base Excess mEq/L Barometric Pressure mm/Hg Sodium 139 (136-145) mmol/L Potassium 3.9 (3.5-5.1) mmol/L Chloride 106 (98-107) mmol/L Carbon Dioxide 22 (21-32) mmol/L Anion Gap 10.0 (3-11) BUN 19 H (7-18) mg/dl Creatinine 0.79 (0.6-1.2) mg/dl Est Cr Clr Drug Dosing 62.2 ml/min Est GFR ( Amer) 81.4 Est GFR (Non-Af Amer) 70.2 BUN/Creatinine Ratio 23.4 H (10-20) Glucose 95 (70-99) mg/dl POC Glucose 106 H (70-99) mg/dl Lactate (0.4-2.0) mmol/L Calcium 10.0 (8.5-10.1) mg/dl Magnesium 2.0 (1.8-2.4) mg/dl Total Bilirubin 0.3 (0.2-1) mg/dl AST 7 L (15-37) U/L ALT 7 L (12-78) U/L Alkaline Phosphatase 74 (45-117) U/L Ammonia (11-32) umol/L Total Creatine Kinase 63 (26-192) U/L Total Protein 7.0 (6.4-8.2) gm/dl Albumin 3.4 (3.4-5.0) gm/dl Globulin 3.6 (2.5-4.0) gm/dl Albumin/Globulin Ratio 0.9 (0.9-2) Urine Color Urine Appearance (Clear) Urine pH (4.5-7.5) Ur Specific [place] (1.000-1.030) Urine Protein (Negative) Urine Glucose (UA) (Negative) Urine Ketones (Negative) Urine Blood (Negative) Urine Nitrite (Negative) Urine Bilirubin (Negative) Urine Urobilinogen (Negative) Ur Leukocyte Esterase (Negative) Urine WBC (Auto) (0-5) /hpf Urine RBC (Auto) (0-4) /hpf U Hyaline Cast (Auto) (0-5) /lpf U Epithel Cells (Auto) (0-5) /lpf Urine Bacteria (Auto) (Negative) Ur Renal Epithelial Cell 04/13/20 04/13/20 04/13/20 Range/Units 14:36 14:36 14:36 WBC 10.89 H (4.8-10.8) K/uL RBC 3.83 L (4.2-5.4) M/uL Hgb 12.3 (12.0-16.0) g/dL Hct 37.0 (37-47) % MCV 96.6 (80-100) fL MCH 32.1 (25-34) pg MCHC 33.2 (32-36) g/dL RDW Std Deviation 49.9 H (36.4-46.3) fL RDW Coeff of Segundo 14.0 (11.5-14.5) % Plt Count 342 (130-400) K/uL MPV 9.8 (7.4-10.4) fL Immature Gran % (Auto) 0.3 % Neut % (Auto) 70.1 % Lymph % (Auto) 14.6 % [place] % (Auto) 10.7 % Eos % (Auto) 3.9 % Baso % (Auto) 0.4 % Neut # (Auto) 7.65 H (1.4-6.5) K/uL Lymph # (Auto) 1.59 (1.2-3.4) K/uL [place] # (Auto) 1.16 H (0.11-0.59) K/uL Eos # (Auto) 0.42 (0-0.5) K/uL Baso # (Auto) 0.04 (0-0.2) K/uL Immature Gran # (Auto) 0.03 H (0.00-0.02) K/uL PT (9.0-12.0) Seconds INR (0.9-1.1) APTT (21.0-31.0) Seconds PTT Ratio VBG pH (7.36-7.41) VBG pCO2 (38-50) mmHg VBG pO2 mmHg VBG HCO3 mmol/L VBG O2 Saturation % VBG Base Excess mEq/L Barometric Pressure mm/Hg Sodium (136-145) mmol/L Potassium (3.5-5.1) mmol/L Chloride (98-107) mmol/L Carbon Dioxide (21-32) mmol/L Anion Gap (3-11) BUN (7-18) mg/dl Creatinine (0.6-1.2) mg/dl Est Cr Clr Drug Dosing ml/min Est GFR ( Amer) Est GFR (Non-Af Amer) BUN/Creatinine Ratio (10-20) Glucose (70-99) mg/dl POC Glucose (70-99) mg/dl Lactate 3.1 H* (0.4-2.0) mmol/L Calcium (8.5-10.1) mg/dl Magnesium (1.8-2.4) mg/dl Total Bilirubin (0.2-1) mg/dl AST (15-37) U/L ALT (12-78) U/L Alkaline Phosphatase (45-117) U/L Ammonia < 10.0 L (11-32) umol/L Total Creatine Kinase (26-192) U/L Total Protein (6.4-8.2) gm/dl Albumin (3.4-5.0) gm/dl Globulin (2.5-4.0) gm/dl Albumin/Globulin Ratio (0.9-2) Urine Color Urine Appearance (Clear) Urine pH (4.5-7.5) Ur Specific [place] (1.000-1.030) Urine Protein (Negative) Urine Glucose (UA) (Negative) Urine Ketones (Negative) Urine Blood (Negative) Urine Nitrite (Negative) Urine Bilirubin (Negative) Urine Urobilinogen (Negative) Ur Leukocyte Esterase (Negative) Urine WBC (Auto) (0-5) /hpf Urine RBC (Auto) (0-4) /hpf U Hyaline Cast (Auto) (0-5) /lpf U Epithel Cells (Auto) (0-5) /lpf Urine Bacteria (Auto) (Negative) Ur Renal Epithelial Cell 04/13/20 04/13/20 Range/Units 14:36 14:50 WBC (4.8-10.8) K/uL RBC (4.2-5.4) M/uL Hgb (12.0-16.0) g/dL Hct (37-47) % MCV (80-100) fL MCH (25-34) pg MCHC (32-36) g/dL RDW Std Deviation (36.4-46.3) fL RDW Coeff of Segundo (11.5-14.5) % Plt Count (130-400) K/uL MPV (7.4-10.4) fL Immature Gran % (Auto) % Neut % (Auto) % Lymph % (Auto) % [place] % (Auto) % Eos % (Auto) % Baso % (Auto) % Neut # (Auto) (1.4-6.5) K/uL Lymph # (Auto) (1.2-3.4) K/uL [place] # (Auto) (0.11-0.59) K/uL Eos # (Auto) (0-0.5) K/uL Baso # (Auto) (0-0.2) K/uL Immature Gran # (Auto) (0.00-0.02) K/uL PT (9.0-12.0) Seconds INR (0.9-1.1) APTT (21.0-31.0) Seconds PTT Ratio VBG pH 7.43 H (7.36-7.41) VBG pCO2 38 (38-50) mmHg VBG pO2 53 mmHg VBG HCO3 25 mmol/L VBG O2 Saturation 86.3 % VBG Base Excess 0.5 mEq/L Barometric Pressure 730.2 mm/Hg Sodium (136-145) mmol/L Potassium (3.5-5.1) mmol/L Chloride (98-107) mmol/L Carbon Dioxide (21-32) mmol/L Anion Gap (3-11) BUN (7-18) mg/dl Creatinine (0.6-1.2) mg/dl Est Cr Clr Drug Dosing ml/min Est GFR ( Amer) Est GFR (Non-Af Amer) BUN/Creatinine Ratio (10-20) Glucose (70-99) mg/dl POC Glucose (70-99) mg/dl Lactate (0.4-2.0) mmol/L Calcium (8.5-10.1) mg/dl Magnesium (1.8-2.4) mg/dl Total Bilirubin (0.2-1) mg/dl AST (15-37) U/L ALT (12-78) U/L Alkaline Phosphatase (45-117) U/L Ammonia (11-32) umol/L Total Creatine Kinase (26-192) U/L Total Protein (6.4-8.2) gm/dl Albumin (3.4-5.0) gm/dl Globulin (2.5-4.0) gm/dl Albumin/Globulin Ratio (0.9-2) Urine Color Dark Yellow Urine Appearance Clear (Clear) Urine pH 5.0 (4.5-7.5) Ur Specific [place] 1.022 (1.000-1.030) Urine Protein Negative (Negative) Urine Glucose (UA) Negative (Negative) Urine Ketones Trace H (Negative) Urine Blood Negative (Negative) Urine Nitrite Positive A (Negative) Urine Bilirubin Negative (Negative) Urine Urobilinogen Negative (Negative) Ur Leukocyte Esterase 1+ H (Negative) Urine WBC (Auto) 5-10 H (0-5) /hpf Urine RBC (Auto) 0-4 (0-4) /hpf U Hyaline Cast (Auto) 5-10 H (0-5) /lpf U Epithel Cells (Auto) >30 H (0-5) /lpf Urine Bacteria (Auto) 3+ H (Negative) Ur Renal Epithelial Cell Not Reportable Imaging Data Radiologist's Impression: CT SCAN OF THE BRAIN WITHOUT IV CONTRAST CLINICAL HISTORY: Recurrent falls. COMPARISON STUDY: CT of the brain dated 07/18/2019. TECHNIQUE: Unenhanced axial CT scan of the brain is performed from the vertex to the skull base. A dose lowering technique was utilized adhering to the principles of ALARA. The examination is degraded by motion artifact. The patient was scanned twice in an effort to improve image quality. CT DOSE: 1647.88 mGycm FINDINGS: Brain parenchyma: There are age-related involutional changes noting mild subcortical and periventricular microangiopathic change. There is no hemorrhage, mass effect, or evidence of acute territorial ischemia by CT criteria. [place]- white matter differentiation is preserved. No extra-axial fluid collection is seen. Ventricles, sulci, cisterns: Prominent secondary to involutional change. Intracranial vasculature: There is atherosclerotic calcification of the cavernous carotid arteries. Calvarium: The skeletal structures are osteopenic. No depressed calvarial fracture is identified. Sinuses and mastoids: The visualized paranasal sinuses are clear. The mastoid air cells are well pneumatized. Orbits: The bony orbits are grossly intact. There are bilateral ocular lens implants. IMPRESSION: There is no hemorrhage, mass effect, or evidence of acute territorial ischemia by CT criteria. ACT 112: Negative or not required by law. Electronically signed by: Rodo Ramos M.D. 04/13/2020 3:30 PM Dictated: 04/13/20 1519 Transcribed: 04/13/20 1519 XR chest 1V portable CLINICAL HISTORY: SEPSIS dyspnea COMPARISON STUDY: 07/18/2019 FINDINGS: Parenchymal infiltrate left lung base. Lungs otherwise appear clear. Diaphragms are smooth. Heart top normal terms of size. IMPRESSION: Infiltrate left base. ACT 112: Negative or not required by law. The above report was generated using voice recognition software. It may contain grammatical, syntax or spelling errors. Electronically signed by: Lewis Wilcox M.D. 04/13/2020 3:40 PM Dictated: 04/13/20 1536 Transcribed: 04/13/20 1536 ECG Data Indication: + other (Sepsis) Rate (beats per minute): 90 Rhythm: + normal sinus ECG Intervals/blocks: + Normal QRS, + Normal IN and + Normal QT-c ECG ST segments: + Normal ST segments Additional Comments: Left ventricular hypertrophy present. [facility] Narrative 1420: The patient was evaluated in room A3. A complete history and physical exam was performed. Called to bedside by nursing as the patient was marked priority patient for low blood pressure. On arrival in the room A3, the patient had a automatic blood pressure 49/39. The patient was moved to the resuscitation bay room B1 and Code sepsis was called. A manual blood pressure was obtained which was within normal limits. Given the patient's history of recurrent UTIs, cefepime was ordered as well as a 30 cc/kg bolus based off her ideal body weight. Bedside danielson exam showed no pneumothorax bilaterally, no AAA, no free fluid in the abdomen, it did show a collapsed IVC. 1618: Vital signs stable. Patient's urine does show signs of infection. CT of the head within normal limits. Chest x-ray showed infiltrate at left base. In addition to the cefepime the patient will be given vancomycin. Patient will be admitted to the hospital for sepsis. Her lactic acid is elevated 3.1. Mild leukocytosis of 10.89. [facility] the [facility]. Impression & Plan Sepsis, Acute UTI, Pneumonia Discharge Plan Visit Data Chief Complaint: Urinary Symptoms Stated Complaint: sepsis ED Provider: Carloz Barth Discharge Problem: Sepsis, Acute UTI, Pneumonia Patient Disposition: Admitted As Inpatient Forms Stand Alone Forms: My [facility] Prescriptions Prescriptions: No Action Desenex 2 % Powder 1 applic TOPICAL BID PRN (Reason: Rash) RF: 0 metformin [Glucophage] 850 mg tablet 850 mg PO BID RF: 0 azathioprine [Imuran] 50 mg tablet 50 mg PO DAILY RF: 0 tramadol [Ultram] 50 mg tablet 50 mg PO Q6 PRN (Reason: Pain) RF: 0 amantadine HCl 100 mg capsule 100 mg PO BID RF: 0 triamcinolone acetonide 0.1 % Cream 1 applic TOPICAL BID PRN (Reason: Rash) RF: 0 cyanocobalamin (vitamin B-12) 1,000 mcg/mL Solution 1,000 mcg IM MONTHLY RF: 0 polyethylene glycol 3350 [Miralax] 17 gram/dose Powder 1 dose PO DAILY PRN (Reason: Constipation) RF: 0 aaugorgvi-otgezhue-dkvpeebrvx [Stalevo 200] 50-200-200 mg tablet 1 tab PO QID RF: 0 Adult Multivitamin Gummies 200 mcg Tablet,Chewable 2 tabs PO DAILY RF: 0 aspirin [Aspir-81] 81 mg Tablet,Delayed Release (Dr/Ec) 81 mg PO DAILY RF: 0 acetaminophen [Tylenol Extra Strength] 500 mg Tablet 500 mg PO QID PRN (Reason: Pain) RF: 0 carbidopa-levodopa 50-200 mg Tablet Extended Release 1 tab PO HS RF: 0 nystatin 100,000 unit/gram Ointment 1 applic EXT BID Qty: 1 RF: 0 ciprofloxacin HCl 500 mg Tablet 500 mg PO BID Qty: 5 RF: 0 Referrals Referrals: Kojo Cohen [Primary Care Provider] -
[2020-04-13] MEDS ORDERED: GLUCOSE 40% GEL 15 GM TUBE PO PRN (16:03)
[2020-04-13] MEDS ORDERED: GLUCOSE 10 TABS/TUBE PO PRN (16:03)
[2020-04-13] MEDS ORDERED: CARBOHYDRATES FOR HYPOGLYCEMIA PO PRN (16:03)
[2020-04-13] MEDS ORDERED: DEXTROSE 50% 50 ML SYRINGE IV PRN (16:03)
[2020-04-13] MEDS ORDERED: GLUCAGON FOR INJ 1 MG VIAL SQ PRN (16:03)
[2020-04-13] MEDS ORDERED: VANCOMYCIN HCL 1,750 MG in SODIUM CHLORIDE 0.9% 500 ML IV ONE (16:17)
[2020-04-13] MEDS ORDERED: VANCOMYCIN CONSULT ACTIVE PRN (16:17)
--- NOTE | 2020-04-13 16:39 | Electrocardiogram Report ---
Test Reason : Blood Pressure : / mmHG Vent. Rate : 090 BPM Atrial Rate : 090 BPM P-R Int : 138 ms QRS Dur : 080 ms QT Int : 364 ms P-R-T Axes : 000 -37 028 degrees QTc Int : 445 ms Poor data quality, interpretation may be adversely affected Normal sinus rhythm Left axis deviation Voltage criteria for left ventricular hypertrophy Abnormal ECG When compared with ECG of 18-JUL-2019 11:00, No significant change was found Confirmed by Harley March ([id number]) on 04/13/2020 4:38:48 PM Referred By: Confirmed By:Harley March
[2020-04-13] MEDS: cefTRIAXone SODIUM 2,000 MG in DEXTROSE 5% 50 ML IV SCH (18:13)
[2020-04-13] MEDS: DOXYCYCLINE HYCLATE 100 MG in DEXTROSE 5% 100 ML IV SCH (18:13)
[2020-04-13] MEDS ORDERED: SODIUM CHLORIDE 0.9% 1000ML 1,000 ML IV SCH (21:45)
[2020-04-13] MEDS: [UNRECOGNIZED DRUG - OTHER] SCH ×2 (21:46→23:26)
[2020-04-13] MEDS: TRAMADOL HCL 50 MG TABLET PO PRN (22:01)
[2020-04-13] MEDS: INSULIN ASPART 100 UNITS/ML 3 ML PEN SC SCH (22:19)
[2020-04-13] MEDS: ENOXAPARIN INJ 40 MG/0.4 ML SYR SQ SCH (22:23)
[2020-04-13] MEDS: AMANTADINE HCL 100 MG CAPSULE PO SCH (22:24)
[2020-04-13] MEDS: CARBIDOPA/LEVODOPA 50/200MG EXT REL TAB PO SCH (22:24)
[2020-04-14] MEDS: DOXYCYCLINE HYCLATE 100 MG in DEXTROSE 5% 100 ML IV SCH ×2 (03:57→17:14)
--- NOTE | 2020-04-14 08:09 | Hospitalist Progress Note ---
Date of Service April 14, 2020 Assessment & Plan (1) Metabolic encephalopathy: Stephie is a 80 yo woman admitted with metabolic encephalopathy and sepsis, thought to be secondary to a PNA and possible co-urinary tract infection. Possible sepsis in the setting of Pneumonia and UTI - cognitive baseline is unknown, no underlying dementia documented - head CT normal on admission - thought to be secondary to co-existent PNA and UTI (2) Left lower lobe pneumonia: - visualized on CXR on admission - WBC mildly elevated to 10.89 on admission, normalized to 8 - lactate elevated on admission to 3.1, down to 1.4 - blood cultures pending - patient afebrile, normal heart and respiratory rate - no risk factors for HCAP - some reports of concern for aspiration from family, patient is at risk for dysphagia given hx of parkinsons disease. 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 Trevizo and agree with the findings and care plan. Subjective Feeling "alright." States she does not want to have to do physical therapy today. Review of Systems Genitourinary: + dysuria Physical Exam Constitutional: WD/WN, vitals as above + masked facies. Hypophonia Eyes: + anicteric sclerae ENMT: external ear and nose normal, oropharynx normal Neck: normal visual inspection and trachea midline Respiratory: Auscultation: + crackles (left lung base ) Cardiovascular: Rate/Rhythm: regular rate and regular rhythm Heart Sounds: normal S1, normal S2 and + murmur (systolic ejection murmur, radiates to carotids ) Extremities: no pedal edema Gastrointestinal (Abdomen): Inspection/Auscultation: abdomen normal to inspection and normal bowel sounds Percussion/Palpation: + abdomen tender (diffusely throughout ) and abdomen soft; no guarding Skin: no rashes, warm and dry Psychiatric: A+Ox3, euthymic affect Results & Data Results & Data ([facility]) Vital Signs (Past 12 Hours) Vital Signs Temp Pulse Resp BP BP Pulse Ox 04/14/20 07: 37.2 C 89 18 132/72 96 04/14/20 03:06 37.3 C 88 19 120/74 97 04/13/20 23:37 37.1 C 81 20 127/75 90 04/13/20 21:56 36.9 C 84 18 153/76 H 97 04/13/20 21:00 82 18 144/77 H 96 Resident Activity Tracking Resident Involvement: Resident Care Provided Care Provided: Adult Hospital Medicine (1) Urinary tract infection Hematuria presence: without hematuria Urinary tract infection type: acute cystitis Qualified Code(s): N30.00 - Acute cystitis without hematuria
[2020-04-14] MEDS: azaTHIOprine 50 MG TAB PO SCH (08:18)
[2020-04-14] MEDS: AMANTADINE HCL 100 MG CAPSULE PO SCH ×2 (08:18→21:33)
[2020-04-14] MEDS: ASPIRIN 81 MG ECTAB PO SCH (08:18)
[2020-04-14] MEDS: [UNRECOGNIZED DRUG - OTHER] SCH (08:19)
[2020-04-14] MEDS: INSULIN ASPART 100 UNITS/ML 3 ML PEN SC SCH ×4 (08:19→21:34)
[2020-04-14 10:16] LABS: Hematocrit (blood only) 37.3 % (37-47); Mean Corpuscular Hemoglobin 31.4 pg (25-34); Mean Corpuscular Hgb Conc 32.2 g/dL (32-36); Mean Corpuscular Volume 97.6 fL (80-100); Mean Platelet Volume 9.6 fL (7.4-10.4); Platelet Count 330 K/uL (130-400); RDW Coefficient of Variation 14.5 % (11.5-14.5); RDW Standard Deviation 51.6 fL (36.4-46.3); Red Blood Count 3.82 M/uL (4.2-5.4); White Blood Count 8.22 K/uL (4.8-10.8)
[2020-04-14 10:22] LABS: Estimated Average Glucose 143 mg/dl; Hemoglobin A1C 6.6 % (4.5-5.6)
[2020-04-14 10:40] LABS: BUN Creatinine Ratio 16.4 (10-20); Calcium 8.8 mg/dl (8.5-10.1); Creatinine Clr Calc Pharmacy 72.3 ml/min; Est GFR (African American) 94.6; Est GFR (Non-African American) 81.6; Potassium 3.7 mmol/L (3.5-5.1)
[2020-04-14] MEDS: cefTRIAXone SODIUM 2,000 MG in DEXTROSE 5% 50 ML IV SCH (17:14)
[2020-04-14] MEDS: ENTACAPONE 200 MG TAB PO SCH ×2 (17:15→21:32)
[2020-04-14] MEDS: CARBIDOPA/LEVODOPA 25/100MG TAB PO SCH ×2 (17:16→21:32)
[2020-04-14] MEDS: CARBIDOPA/LEVODOPA 50/200MG EXT REL TAB PO SCH (21:33)
[2020-04-14] MEDS: ENOXAPARIN INJ 40 MG/0.4 ML SYR SQ SCH (21:34)
[2020-04-15] MEDS: DOXYCYCLINE HYCLATE 100 MG in DEXTROSE 5% 100 ML IV SCH (03:34)
[2020-04-15 05:26] LABS: Hematocrit (blood only) 38.3 % (37-47); Hemoglobin 12.6 g/dL (12.0-16.0); Mean Corpuscular Hemoglobin 31.9 pg (25-34); Mean Corpuscular Hgb Conc 32.9 g/dL (32-36); Mean Platelet Volume 9.3 fL (7.4-10.4); Platelet Count 304 K/uL (130-400); RDW Coefficient of Variation 14.3 % (11.5-14.5); RDW Standard Deviation 51.2 fL (36.4-46.3); Red Blood Count 3.95 M/uL (4.2-5.4); White Blood Count 7.12 K/uL (4.8-10.8)
[2020-04-15 05:57] LABS: BUN Creatinine Ratio 13.5 (10-20); Calcium 9.1 mg/dl (8.5-10.1); Creatinine Clr Calc Pharmacy 89.1 ml/min; Est GFR (African American) 101.3; Est GFR (Non-African American) 87.4; Potassium 3.4 mmol/L (3.5-5.1)
--- NOTE | 2020-04-15 07:21 | CT Scan Report ---
CT chest wo con CT DOSE: 508.73 mGy.cm HISTORY: Shortness of breath. Evaluate left lower lobe for possible pneumonia TECHNIQUE: Multiaxial CT images of the chest were performed without contrast. A dose lowering techni que was utilized adhering to the principles of ALARA. COMPARISON: Chest CT 02/20/2017. FINDINGS: Trace pericardial fluid. Mild aneurysmal dilatation of the ascending aorta measuring up to 4.1 cm in diameter. The main pulmonary artery is mildly dilated suggesting pulmonary arterial hyperte nsion. This remains unchanged. The heart is normal in size. Limited views of the upper abdomen demons trate a normal liver and spleen. No mediastinal or hilar lymphadenopathy. No pleural effusions. No hanson spicious lytic are blastic osseous lesions. There is respiratory motion artifact. The central airways appear patent. No pneumothorax. Patchy groundglass densities at the base of the left lower lobe are nonspecific but favor mild dependent change. A developing pneumonia could also have a similar appeara nce. IMPRESSION: 1. Patchy groundglass densities at the base of the left lower lobe are nonspecific but favor mild dep endent change. A developing pneumonia could also have a similar appearance. 2. Additional findings as described above. ACT 112: Negative or not required by law. Electronically signed by: Alexander Ivy M.D. 04/15/2020 7:19 AM
[2020-04-15] MEDS ORDERED: NYSTATIN CR 15 GM TUBE EXT SCH (09:00)
[2020-04-15] MEDS: INSULIN ASPART 100 UNITS/ML 3 ML PEN SC SCH ×2 (09:03→12:16)
[2020-04-15] MEDS: TRAMADOL HCL 50 MG TABLET PO PRN (09:10)
[2020-04-15] MEDS: CARBIDOPA/LEVODOPA 25/100MG TAB PO SCH ×2 (09:10→12:15)
[2020-04-15] MEDS: ASPIRIN 81 MG ECTAB PO SCH (09:11)
[2020-04-15] MEDS: AMANTADINE HCL 100 MG CAPSULE PO SCH (09:11)
[2020-04-15] MEDS: ENTACAPONE 200 MG TAB PO SCH ×2 (09:11→12:15)
[2020-04-15] MEDS: azaTHIOprine 50 MG TAB PO SCH (09:11)
--- NOTE | 2020-04-15 13:23 | Discharge Summary ---
Date of Service April 15, 2020 Admission HPI Per Admitting Provider Patient presented to the ER feeling ill with complaints of warning about being septic again. Initially her blood pressure was found to be low but this was by the automated reading and manual blood pressure did not reveal any significant low numbers. Patient was initially given cefepime and volume resuscitation with crystalloid. Her initial lactic acid was elevated 3.1 the remainder of her laboratories are not significantly out of alignment with a white count of 10 BUN/creatinine of 19 and 0.79 and a bicarbonate on serum of 22. She is an abnormal urinalysis and abnormal chest x-ray. She had a urinary tract infection in July 2019 Which showed Klebsiella resistant to cefazolin and intermediate to his Cefuroxime Patient had blood and urine culture sent patient will be continued on ceftriaxone and azithromycin to cover both possible community associated pneumonia and perhaps a urinary pathogen awaiting culture results Admission Exam Per Admitting Provider The patient appeared to have significant limitations from movement disorder Parkinson's disease Vital signs as documented. It is to be noted that automatic blood pressures are typically lower while manual blood pressures are more accurate Head exam is normocephalic atraumatic no scleral icterus Neck is without JVD, thyromegaly, or carotid bruits. Lungs are diminished at the bilateral bases but no focal air loss Cardiac exam, Rhythm is regular.. No murmurs, rubs or gallops. Abdominal exam reveals normal bowel sounds, soft non tender, no masses no suprapubic tenderness no CVA tenderness Extremities are nonedematous and both pedal pulses are normal. Neurologic exam is alert and oriented x2, she can hold a conversation she has movement disorder and cannot stay still Skin is without bruises she has a fine rash with looks like tinea versicolor on her chest no traces of bullous pemphigoid which she has a history of Principal Diagnosis Pneumonia Discharge Exam Constitutional WD/WN, vitals as above Eyes + anicteric sclerae ENMT external ear and nose normal, oropharynx normal Neck normal visual inspection and trachea midline Respiratory Auscultation: + crackles (left lung base ) Cardiovascular Rate/Rhythm: regular rate and regular rhythm Heart Sounds: normal S1, normal S2 and + murmur (systolic ejection murmur, radiates to carotids ) Extremities: no pedal edema Gastrointestinal (Abdomen) Inspection/Auscultation: abdomen normal to inspection and normal bowel sounds Percussion/Palpation: + abdomen tender (diffusely throughout ) and abdomen soft; no guarding Skin no rashes, warm and dry Psychiatric A+Ox3, euthymic affect Discharge Data Allergies Allergy/AdvReac Type Severity Reaction Status Date / Time No Known Allergies Allergy Verified 04/13/20 16:58 Consultations 04/13/20 15:38 ED Decision to Admit Stat Ordered Studies 04/13/20 14:36 CT head/brain wo con Stat 04/13/20 14:39 US point of care ultrasound Stat 04/13/20 21:44 CT chest wo con Routine Hospital Course (1) Metabolic encephalopathy: Stephie is a 80 yo woman admitted with metabolic encephalopathy and sepsis, thought to be secondary to a PNA and possible co-urinary tract infection. Possible sepsis in the setting of Pneumonia and UTI Metabolic Encephalopathy - cognitive baseline is unknown, no underlying dementia documented - head CT normal on admission - thought to be secondary to co-existent PNA and UTI Left lower lobe Pneumonia - visualized on CXR on admission - WBC mildly elevated to 10.89 on admission, normalized to 8 - lactate elevated on admission to 3.1, down to 1.4 - blood cultures without growth by the time of discharge - patient afebrile, normal heart and respiratory rate - no risk factors for HCAP - some reports of concern for aspiration from family, patient is at risk for dysphagia given hx of parkinsons disease. Speech therapy consulted for bedside swallow study and found no evidence of chau aspiration but recommended a minced and moist diet and supervision with all meals - given multiple allergies to antibiotics, patient was treated with doxycycline. Continue doxy for 100mg, twice daily for 5 days after discharge Urinary Tract Infection - UA +1 nitrite, LE and bacteria on admission, culture grew ESBL E.coli, sensitive to nitrofurantoin - family reports history of foul-smelling urine [employer] - marcobid acceptable therapy for ESBL in the setting of uncomplicated cystitis - continue 100mg, twice daily for 5 days after discharge Parkinsons Disease - continue home dose sinemet and amantadine Bullous Pemphigoid - continue home dose azothioprine (2) Left lower lobe pneumonia: (3) Urinary tract infection: (4) Parkinson disease: (5) Bullous pemphigoid: Total Time Total Time Spent Total Time Spent (In Minutes): see attending attestation Discharge Plan Discharge Items Patient Disposition: Home - Home Health Services Reason For Visit: LLL PNEUMONIA,POSSIBLE UTI POA Discharge Diagnosis: Pneumonia, UTI Activity: Resume your previous activity Non-emergency contact: Primary Care Provider Call non-emergency contact if: your symptoms worsen Follow-up/Referrals: Kojo Cohen [Primary Care Provider] - Diet: Carb Consistent or DM2 Addtl Attending Provider Instructions: You were hospitalized at [facility] with confusion. Your confusion was likely due to the fact that you had both a Pneumonia and a urinary tract infection. We started treating your infections with antibiotics while in the hospital and your confusion resolved by the time of discharge. For your urinary tract infection, we recommend you take the antibiotic Macrobid, 100mg, twice daily for another 5 days. For your pneumonia, we recommend you take the antibiotic doxycycline 100mg, twice daily, for another 5 days. Since you will be on two antibiotics, we recommend you take a daily probiotic (available over the counter), or eat a yogurt daily for the next week. This will help restore some of the helpful bacteria in the gut. If you develop a fever/chills, become short of breath or confused after leaving, please contact your doctor right away. Regardless, we want you to follow up with your PCP within 1 week of discharge. Pending Studies at Discharge: No Stand-Alone Forms: My [facility], Smoking Cessation Medications and DC Order Prescriptions: New nitrofurantoin monohyd/m-cryst [Macrobid] 100 mg capsule 100 mg PO BID 5 Days Qty: 10 RF: 0 doxycycline hyclate 100 mg capsule 100 mg PO BID 5 Days Qty: 10 RF: 0 Continued azathioprine [Imuran] 50 mg tablet 50 mg PO DAILY RF: 0 tramadol [Ultram] 50 mg tablet 50 mg PO Q6 PRN (Reason: Pain) RF: 0 amantadine HCl 100 mg capsule 100 mg PO BID RF: 0 cyanocobalamin (vitamin B-12) 1,000 mcg/mL Solution 1,000 mcg IM MONTHLY RF: 0 aspirin [Aspir-81] 81 mg Tablet,Delayed Release (Dr/Ec) 81 mg PO DAILY RF: 0 acetaminophen [Tylenol Extra Strength] 500 mg Tablet 500 mg PO QID PRN (Reason: Pain) RF: 0 metformin 1,000 mg Tablet 1,000 mg PO BID RF: 0 nystatin-triamcinolone 100,000-0.1 unit/g-% Cream 1 applic TOPICAL BID PRN (Reason: UNDER BREAST PRN) RF: 0 rumswietl-qyyhxywl-lxpzpvvbls 25-100-200 mg Tablet 2 tab PO QID RF: 0 prednisone 5 mg Tablet 0 mg PO DAILY RF: 0 clobetasol 0.05 % cream 1 applic TOPICAL BID RF: 0 hydrocortisone 2.5 % Cream 1 applic TOPICAL BID PRN (Reason: Skin Irritation) RF: 0 multivitamin Tablet,Chewable 1 tab PO DAILY RF: 0 carbidopa-levodopa 50-200 mg Tablet Extended Release 1 tab PO HS RF: 0 Discharge Orders: Discharge Order (Routine); Ordered 04/15/20 Ordered By: Anna Trevizo Admission Data Admit Date/Time: 04/13/20 16:02 Attending Provider: Geno Sullivan Admit Provider: David Henson Primary Care Provider: Kojo Cohen Other Providers: David Henson Other Interventions: Discharge Summary Assessment (RN) Last Done: 04/15/20 14:42 Supervising Physician Co-Signing Physician Notes Resident Physician Supervision Note: I independently interviewed and examined the patient and verified the basurto history and physical, reviewed labs and image studies, discussed the case with the resident Dr. Trevizo and agree with the findings and care plan. Resident Activity Tracking Resident Involvement: Resident Care Provided Care Provided: Adult Hospital Medicine
== END 2020-04-15 15:49 | disposition home health service (06) | DRG 871 ==
LOC: ED 14:09 → 2N 16:02 → SUATTDRO 16:02 → 2N 21:08

== ENCOUNTER 2020-04-21 11:28 | Inpatient (IN) ==
[2020-04-21 12:20] LABS: Basophils # (auto) 0.03 K/uL (0-0.2); Basophils % (auto) 0.3 %; Eosinophils % (auto) 3.2 %; Hematocrit (blood only) 36.3 % (37-47); Immature Granulocytes # (auto) 0.02 K/uL (0.00-0.02); Immature Granulocytes % (auto) 0.2 %; Lymphocytes # (auto) 1.42 K/uL (1.2-3.4); Lymphocytes % (auto) 15.1 %; Mean Corpuscular Hemoglobin 31.7 pg (25-34); Mean Corpuscular Hgb Conc 33.1 g/dL (32-36); Mean Platelet Volume 9.6 fL (7.4-10.4); Monocytes % (auto) 8.5 %; Neutrophils # (auto) 6.84 K/uL (1.4-6.5); Neutrophils % (auto) 72.7 %; Platelet Count 380 K/uL (130-400); RDW Coefficient of Variation 13.9 % (11.5-14.5); RDW Standard Deviation 48.4 fL (36.4-46.3); Red Blood Count 3.78 M/uL (4.2-5.4); White Blood Count 9.41 K/uL (4.8-10.8)
[2020-04-21 12:26] LABS: INR 1.1 (0.9-1.1); Partial Thromboplastin Time 28.8 Seconds (21.0-31.0); Prothrombin Time 11.2 Seconds (9.0-12.0)
[2020-04-21 12:30] LABS: Alanine Aminotransferase 9 U/L (12-78); Albumin Level 3.6 gm/dl (3.4-5.0); Aspartate Aminotransferase 9 U/L (15-37); BUN Creatinine Ratio 19.3 (10-20); Blood Urea Nitrogen 15 mg/dl (7-18); Carbon Dioxide 22 mmol/L (21-32); Chloride 104 mmol/L (98-107); Est GFR (African American) 85.3; Est GFR (Non-African American) 73.6; Glucose 114 mg/dl (70-99); Magnesium 1.6 mg/dl (1.8-2.4); Sodium 136 mmol/L (136-145)
--- NOTE | 2020-04-21 12:30 | Emergency Department Note ---
History of Present Illness General Chief complaint: Urinary Symptoms Stated complaint: UTI Time Seen by Provider: 04/21/20 12:11 History of Present Illness Provider complaint: Altered mental status Onset (ago): day(s) 2 Maximum Pain Intensity: 0 80-year-old female with history of Parkinson disease, sepsis, diabetes, presents to the emergency department for altered mental status with her daughter. Daughter states that over the last 2 days patient is becoming increasingly weak. She states she cannot eat or cannot walk. She states that she thinks that the patient is "having a flare". Patient daughter at bedside states that the only thing that calms her down and she is able to keep down his her CBD Gummies. Daughter states she is having difficulty taking care of the patient at home and thinks she needs to be placed. She states that the patient is a DNR/DNI but wants antibiotics and fluids if necessary. Daughter states on previous times when patient has had symptoms like these she has had UTIs. Daughter reports no falls or trauma. Home Medications Home Medications Medication Instructions Recorded Confirmed Type acetaminophen [Tylenol Extra 500 mg PO QID PRN 07/14/18 04/21/20 History Strength] amantadine HCl 100 mg PO BID 07/14/18 04/21/20 History aspirin [Aspir-81] 81 mg PO DAILY 07/14/18 04/21/20 History azathioprine [Imuran] 50 mg PO DAILY 07/14/18 04/21/20 History cyanocobalamin (vitamin B-12) 1,000 mcg IM MONTHLY 07/14/18 04/21/20 History tramadol [Ultram] 50 mg PO Q6 PRN 07/14/18 04/21/20 History carbidopa-levodopa 1 tab PO HS 07/18/19 04/21/20 History hoffcbqdq-qbqgexiz-hrcoztknzv 2 tab PO QID 04/13/20 04/21/20 History clobetasol 1 applic TOPICAL BID 04/13/20 04/21/20 History hydrocortisone 1 applic TOPICAL BID PRN 04/13/20 04/21/20 History metformin 1,000 mg PO BID 04/13/20 04/21/20 History multivitamin 1 tab PO DAILY 04/13/20 04/21/20 History nystatin-triamcinolone 1 applic TOPICAL BID PRN 04/13/20 04/21/20 History prednisone 0 mg PO DAILY 04/13/20 04/21/20 History doxycycline hyclate 100 mg PO DIRECTED 04/21/20 04/21/20 History nitrofurantoin monohyd/m-cryst 100 mg PO BID 04/21/20 04/21/20 History Allergies Allergy/AdvReac Type Severity Reaction Status Date / Time No Known Allergies Allergy Verified 04/21/20 11:58 Past Med/Surg History Medical History Diabetes Hypertension (Chronic) Parkinson disease (Chronic) Paroxysmal atrial fibrillation QT prolongation Urinary tract infection (Acute) Family History Other Aneurysm Stroke Social History Preferred Language: Hebrew Communication Ability: Effective Freelance Data Entry Required: No Beliefs That Will Affect Care: None marital status: / Current Living Situation: Family Current Living Situation Comment: dtr Feels Safe at Home: Yes Smoking Status: Never smoker Hx Alcohol Use: No Hx Substance Use: No Review of Systems Unobtainable due to cognitive status Physical Exam Vital Signs Vital Signs - 24 hr 04/21/20 11:33 04/21/20 11:57 04/21/20 12:31 Temperature 37.4 C Temperature Source Oral Pulse Rate 102 H 86 Pulse Rate [Apical] 90 Pulse Rate from SpO2 Sensor 87 Respiratory Rate 20 18 22 Respiratory Effort / Characteristics Non-Labored Non-Labored Spontaneous Respiratory Depth Normal Normal Blood Pressure 109/66 131/68 Blood Pressure [Left Arm] 126/70 Blood Pressure Mean 80 85 Blood Pressure Mean [Left Arm] 88 Blood Pressure Position [Left Arm] Lying Pulse Oximetry 95 95 97 Oxygen Delivery Method Room Air Room Air Room Air Sepsis Recent Fever Within 48 Hours No Sepsis Action Taken by Nursing No Action Required 04/21/20 12:41 04/21/20 12:45 04/21/20 12:46 Temperature Temperature Source Pulse Rate 86 85 Pulse Rate [Apical] Pulse Rate from SpO2 Sensor 85 86 Respiratory Rate 21 22 Respiratory Effort / Characteristics Respiratory Depth Blood Pressure 124/73 128/76 Blood Pressure [Left Arm] Blood Pressure Mean 82 94 Blood Pressure Mean [Left Arm] Blood Pressure Position [Left Arm] Pulse Oximetry 95 96 95 Oxygen Delivery Method Room Air Room Air Room Air Sepsis Recent Fever Within 48 Hours Sepsis Action Taken by Nursing 04/21/20 13:01 04/21/20 13:16 04/21/20 13:44 Temperature Temperature Source Pulse Rate 104 H 85 85 Pulse Rate [Apical] Pulse Rate from SpO2 Sensor 86 85 Respiratory Rate 22 23 18 Respiratory Effort / Characteristics Respiratory Depth Blood Pressure 145/79 H 137/84 128/77 Blood Pressure [Left Arm] Blood Pressure Mean 95 101 90 Blood Pressure Mean [Left Arm] Blood Pressure Position [Left Arm] Pulse Oximetry 93 97 95 Oxygen Delivery Method Room Air Room Air Room Air Sepsis Recent Fever Within 48 Hours Sepsis Action Taken by Nursing 04/21/20 13:46 04/21/20 14:01 04/21/20 14:02 Temperature Temperature Source Pulse Rate 86 86 86 Pulse Rate [Apical] Pulse Rate from SpO2 Sensor 86 86 85 Respiratory Rate 20 23 21 Respiratory Effort / Characteristics Respiratory Depth Blood Pressure 137/71 144/73 H Blood Pressure [Left Arm] Blood Pressure Mean 101 96 Blood Pressure Mean [Left Arm] Blood Pressure Position [Left Arm] Pulse Oximetry 95 98 100 Oxygen Delivery Method Room Air Room Air Sepsis Recent Fever Within 48 Hours Sepsis Action Taken by Nursing 04/21/20 14:16 04/21/20 14:30 04/21/20 14:31 Temperature Temperature Source Pulse Rate 87 86 87 Pulse Rate [Apical] Pulse Rate from SpO2 Sensor 91 H 87 86 Respiratory Rate 25 H 22 25 H Respiratory Effort / Characteristics Respiratory Depth Blood Pressure 143/73 H 146/70 H Blood Pressure [Left Arm] Blood Pressure Mean 91 83 Blood Pressure Mean [Left Arm] Blood Pressure Position [Left Arm] Pulse Oximetry 96 100 100 Oxygen Delivery Method Sepsis Recent Fever Within 48 Hours Sepsis Action Taken by Nursing 04/21/20 14:46 04/21/20 15:00 04/21/20 15:01 Temperature Temperature Source Pulse Rate 87 85 Pulse Rate [Apical] Pulse Rate from SpO2 Sensor 87 87 87 Respiratory Rate 21 20 20 Respiratory Effort / Characteristics Respiratory Depth Blood Pressure 142/81 H 135/65 Blood Pressure [Left Arm] Blood Pressure Mean 93 80 Blood Pressure Mean [Left Arm] Blood Pressure Position [Left Arm] Pulse Oximetry 100 98 97 Oxygen Delivery Method Sepsis Recent Fever Within 48 Hours Sepsis Action Taken by Nursing 04/21/20 15:16 Temperature Temperature Source Pulse Rate 100 H Pulse Rate [Apical] Pulse Rate from SpO2 Sensor 87 Respiratory Rate 21 Respiratory Effort / Characteristics Respiratory Depth Blood Pressure 140/69 Blood Pressure [Left Arm] Blood Pressure Mean 93 Blood Pressure Mean [Left Arm] Blood Pressure Position [Left Arm] Pulse Oximetry 98 Oxygen Delivery Method Sepsis Recent Fever Within 48 Hours Sepsis Action Taken by Nursing GENERAL: She is oriented to person, place, and time. EYES: Conjunctivae and EOM are normal. Pupils are equal, round, and reactive to light. Right eye exhibits no discharge. Left eye exhibits no discharge. No scleral icterus. NECK: Normal range of motion. Neck supple. No JVD present. No spinous process tenderness present. No carotid bruit present. No rigidity. No tracheal deviation and normal range of motion present. No Brudzinski's sign and no Kernig's sign noted. CV: Normal rate, regular rhythm, normal heart sounds and intact distal pulses. There is no peripheral edema. Palpable radial pulses bue. PULM/CHEST: Effort normal and breath sounds normal. No respiratory distress. No stridor. She has no wheezes. She has no rales. -Chest Wall: She exhibits no tenderness. ABD: The abdomen is soft. Bowel sounds are normal. She has no distension. No mass is present. There is no tenderness. There is no rebound, no guarding, no Garcia's sign and no tenderness at McBurney's point. Rovsig negative MUSC/SKEL: Normal range of motion. There is no peripheral edema, tenderness or deformity. LYMPH: No cervical adenopathy. NEURO: Patient has tremor at baseline. SKIN: Skin is warm and dry. She is not diaphoretic. PSYCH: She has a normal mood and affect. Behavior is normal. Judgment and thought content normal. Course Course 1215: The patient was evaluated in room C4. A complete history and physical exam was performed. Cardiac monitoring: An order was placed for continuous cardiac monitoring. The monitor shows a rate of 90 with sinus rhythm EMR reviewed. Patient was seen in the emergency department 8 days ago on April 13 and admitted for sepsis due to UTI as well as pneumonia. Patient was discharged on April 15, 2020. Her blood cultures were negative. Urine culture grew out ESBL E. coli sensitive to Macrobid which the patient was discharged with. 1345: Vital signs stable. Labs show lactic acid of 2.1. Patient will be treated empirically with cefepime given her previous urine cultures. Patient will be admitted to the hospital service for possible placement as his daughter states she is unable to take care of her at home. Magnesium is also again low. Patient will be admitted to the [facility] hospitalist team Dr. Trejo. Administered Medications Sodium Chloride (Nss 1000ml) 1,000 mls @ 80 mls/hr IV .[id number] DEEDEE Stop: 04/22/20 17:27 Last Admin: 04/21/20 17:12 Dose: 80 mls/hr Documented by: [id number] Magnesium Sulfate/Dextrose (Magnesium Sulfate / D5w) 1 gm in 100 mls @ 50 mls/hr IV Q2H DEEDEE Stop: 04/21/20 20:44 Last Admin: 04/21/20 17:27 Dose: 50 mls/hr Documented by: [id number] Metformin HCl (Glucophage) 1,000 mg PO BIDM DEEDEE Stop: 05/21/20 17:29 Last Admin: 04/21/20 18:06 Dose: 1,000 mg Documented by: [id number] Discontinued Medications Cefepime HCl (Maxipime) 2,000 mg in 20 mls @ 5 mls/min IV NOW STA; Protocol Stop: 04/21/20 13:51 Last Admin: 04/21/20 13:56 Dose: 5 mls/min Documented by: [id number] Medical Decision Making Laboratory Data Result diagrams: 04/21/20 11:57 04/21/20 11:57 Lab Results 04/21/20 04/21/20 04/21/20 Range/Units 11:57 11:57 11:57 WBC 9.41 (4.8-10.8) K/uL RBC 3.78 L (4.2-5.4) M/uL Hgb 12.0 (12.0-16.0) g/dL Hct 36.3 L (37-47) % MCV 96.0 (80-100) fL MCH 31.7 (25-34) pg MCHC 33.1 (32-36) g/dL RDW Std Deviation 48.4 H (36.4-46.3) fL RDW Coeff of [place] 13.9 (11.5-14.5) % Plt Count 380 (130-400) K/uL MPV 9.6 (7.4-10.4) fL Immature Gran % (Auto) 0.2 % Neut % (Auto) 72.7 % Lymph % (Auto) 15.1 % [place] % (Auto) 8.5 % Eos % (Auto) 3.2 % Baso % (Auto) 0.3 % Neut # (Auto) 6.84 H (1.4-6.5) K/uL Lymph # (Auto) 1.42 (1.2-3.4) K/uL [place] # (Auto) 0.80 H (0.11-0.59) K/uL Eos # (Auto) 0.30 (0-0.5) K/uL Baso # (Auto) 0.03 (0-0.2) K/uL Immature Gran # (Auto) 0.02 (0.00-0.02) K/uL PT 11.2 (9.0-12.0) Seconds INR 1.1 (0.9-1.1) APTT 28.8 (21.0-31.0) Seconds PTT Ratio 1.0 Sodium (136-145) mmol/L Potassium (3.5-5.1) mmol/L Chloride (98-107) mmol/L Carbon Dioxide (21-32) mmol/L Anion Gap (3-11) BUN (7-18) mg/dl Creatinine (0.6-1.2) mg/dl Est Cr Clr Drug Dosing Est GFR ( Amer) Est GFR (Non-Af Amer) BUN/Creatinine Ratio (10-20) Glucose (70-99) mg/dl Lactate (0.4-2.0) mmol/L Calcium (8.5-10.1) mg/dl Magnesium (1.8-2.4) mg/dl Total Bilirubin (0.2-1) mg/dl AST (15-37) U/L ALT (12-78) U/L Alkaline Phosphatase (45-117) U/L Troponin I (0-0.045) ng/ml Total Protein (6.4-8.2) gm/dl Albumin (3.4-5.0) gm/dl Globulin (2.5-4.0) gm/dl Albumin/Globulin Ratio (0.9-2) Procalcitonin 0.23 (0-0.5) ng/ml Urine Color Urine Appearance (Clear) Urine pH (4.5-7.5) Ur Specific [place] (1.000-1.030) Urine Protein (Negative) Urine Glucose (UA) (Negative) Urine Ketones (Negative) Urine Blood (Negative) Urine Nitrite (Negative) Urine Bilirubin (Negative) Urine Urobilinogen (Negative) Ur Leukocyte Esterase (Negative) 04/21/20 04/21/20 04/21/20 Range/Units 11:57 13:02 13:05 WBC (4.8-10.8) K/uL RBC (4.2-5.4) M/uL Hgb (12.0-16.0) g/dL Hct (37-47) % MCV (80-100) fL MCH (25-34) pg MCHC (32-36) g/dL RDW Std Deviation (36.4-46.3) fL RDW Coeff of [place] (11.5-14.5) % Plt Count (130-400) K/uL MPV (7.4-10.4) fL Immature Gran % (Auto) % Neut % (Auto) % Lymph % (Auto) % [place] % (Auto) % Eos % (Auto) % Baso % (Auto) % Neut # (Auto) (1.4-6.5) K/uL Lymph # (Auto) (1.2-3.4) K/uL [place] # (Auto) (0.11-0.59) K/uL Eos # (Auto) (0-0.5) K/uL Baso # (Auto) (0-0.2) K/uL Immature Gran # (Auto) (0.00-0.02) K/uL PT (9.0-12.0) Seconds INR (0.9-1.1) APTT (21.0-31.0) Seconds PTT Ratio Sodium 136 (136-145) mmol/L Potassium 4.0 (3.5-5.1) mmol/L Chloride 104 (98-107) mmol/L Carbon Dioxide 22 (21-32) mmol/L Anion Gap 10.0 (3-11) BUN 15 (7-18) mg/dl Creatinine 0.76 (0.6-1.2) mg/dl Est Cr Clr Drug Dosing Not Reportable Est GFR ( Amer) 85.3 Est GFR (Non-Af Amer) 73.6 BUN/Creatinine Ratio 19.3 (10-20) Glucose 114 H (70-99) mg/dl Lactate 2.1 H* (0.4-2.0) mmol/L Calcium 10.0 (8.5-10.1) mg/dl Magnesium 1.6 L (1.8-2.4) mg/dl Total Bilirubin 0.5 (0.2-1) mg/dl AST 9 L (15-37) U/L ALT 9 L (12-78) U/L Alkaline Phosphatase 82 (45-117) U/L Troponin I < 0.015 (0-0.045) ng/ml Total Protein 7.2 (6.4-8.2) gm/dl Albumin 3.6 (3.4-5.0) gm/dl Globulin 3.6 (2.5-4.0) gm/dl Albumin/Globulin Ratio 1.0 (0.9-2) Procalcitonin (0-0.5) ng/ml Urine Color Dark Yellow Urine Appearance Clear (Clear) Urine pH 5.5 (4.5-7.5) Ur Specific [place] 1.013 (1.000-1.030) Urine Protein Negative (Negative) Urine Glucose (UA) Negative (Negative) Urine Ketones Trace H (Negative) Urine Blood Negative (Negative) Urine Nitrite Negative (Negative) Urine Bilirubin Negative (Negative) Urine Urobilinogen Negative (Negative) Ur Leukocyte Esterase Negative (Negative) 04/21/20 Range/Units 14:53 WBC (4.8-10.8) K/uL RBC (4.2-5.4) M/uL Hgb (12.0-16.0) g/dL Hct (37-47) % MCV (80-100) fL MCH (25-34) pg MCHC (32-36) g/dL RDW Std Deviation (36.4-46.3) fL RDW Coeff of [place] (11.5-14.5) % Plt Count (130-400) K/uL MPV (7.4-10.4) fL Immature Gran % (Auto) % Neut % (Auto) % Lymph % (Auto) % [place] % (Auto) % Eos % (Auto) % Baso % (Auto) % Neut # (Auto) (1.4-6.5) K/uL Lymph # (Auto) (1.2-3.4) K/uL [place] # (Auto) (0.11-0.59) K/uL Eos # (Auto) (0-0.5) K/uL Baso # (Auto) (0-0.2) K/uL Immature Gran # (Auto) (0.00-0.02) K/uL PT (9.0-12.0) Seconds INR (0.9-1.1) APTT (21.0-31.0) Seconds PTT Ratio Sodium (136-145) mmol/L Potassium (3.5-5.1) mmol/L Chloride (98-107) mmol/L Carbon Dioxide (21-32) mmol/L Anion Gap (3-11) BUN (7-18) mg/dl Creatinine (0.6-1.2) mg/dl Est Cr Clr Drug Dosing Est GFR ( Amer) Est GFR (Non-Af Amer) BUN/Creatinine Ratio (10-20) Glucose (70-99) mg/dl Lactate 1.2 (0.4-2.0) mmol/L Calcium (8.5-10.1) mg/dl Magnesium (1.8-2.4) mg/dl Total Bilirubin (0.2-1) mg/dl AST (15-37) U/L ALT (12-78) U/L Alkaline Phosphatase (45-117) U/L Troponin I (0-0.045) ng/ml Total Protein (6.4-8.2) gm/dl Albumin (3.4-5.0) gm/dl Globulin (2.5-4.0) gm/dl Albumin/Globulin Ratio (0.9-2) Procalcitonin (0-0.5) ng/ml Urine Color Urine Appearance (Clear) Urine pH (4.5-7.5) Ur Specific [place] (1.000-1.030) Urine Protein (Negative) Urine Glucose (UA) (Negative) Urine Ketones (Negative) Urine Blood (Negative) Urine Nitrite (Negative) Urine Bilirubin (Negative) Urine Urobilinogen (Negative) Ur Leukocyte Esterase (Negative) Imaging Data Radiologist's Impression: CT OF THE HEAD WITHOUT CONTRAST CLINICAL HISTORY: Altered mental status. COMPARISON STUDY: Head CT April 13, 2020. CT DOSE: 614.27 mGy.cm TECHNIQUE: Helical axial images of the head were obtained without IV contrast. Automated exposure control was utilized for the study. A dose lowering technique was utilized adhering to the principles of ALARA. FINDINGS: No acute intracranial hemorrhage, midline shift or mass effect is present. The ventricular system is unremarkable. The basilar cisterns are patent. No extra-axial collections are present. There are no findings to suggest acute dural sinus thrombosis or acute territorial infarct. No significant calvarial abnormalities are present. Visualized portions of the sinuses and mastoid air cells are clear. Exam is mildly compromised by motion artifact. IMPRESSION: No acute intracranial findings. ACT 112: Negative or not required by law. Electronically signed by: Cyril Ortega M.D. 04/21/2020 1:34 PM Dictated: 04/21/20 1331 Transcribed: 04/21/20 1331 XR chest 1V portable CLINICAL HISTORY: SEPSIS COMPARISON STUDY: 04/13/2020 FINDINGS: The cardiac and mediastinal contours are normal. There is no evidence of focal pulmonary consolidation. There is no evidence of failure. No pleural effusions are visualized.[ IMPRESSION: No active disease in the chest. ACT 112: Negative or not required by law. Electronically signed by: Dwight Magana M.D. 04/21/2020 12:54 PM Dictated: 04/21/20 1254 Transcribed: 04/21/20 1254 ECG Data Indication: + other (Altered mental status) Rate (beats per minute): 90 Rhythm: + normal sinus ECG Intervals/blocks: + Normal QRS, + Normal TN and + Normal QT-c ECG ST segments: + Normal ST segments Additional Comments: Ventricular hypertrophy present. [facility] Narrative 1215: The patient was evaluated in room C4. A complete history and physical exam was performed. Cardiac monitoring: An order was placed for continuous cardiac monitoring. The monitor shows a rate of 90 with sinus rhythm EMR reviewed. Patient was seen in the emergency department 8 days ago on April 13 and admitted for sepsis due to UTI as well as pneumonia. Patient was dischar [facility] on April 15, 2020. Her blood cultures were negative. Urine culture grew out ESBL E. coli sensitive to Macrobid which the patient was discharged with. 1345: Vital signs stable. Labs show lactic acid of 2.1. Patient will be treated empirically with cefepime given her previous urine cultures. Patient will be admitted to the hospital service for possible placement as his daughter states she is unable to take care of her at home. Magnesium is also again low. Patient will be admitted to the [facility] Hospitalist team Dr. Trejo. Impression & Plan Hypomagnesemia, Lactic acidemia Discharge Plan Visit Data *Final* Discharge Date/Time: 04/21/20 15:58 Chief Complaint: Urinary Symptoms Stated Complaint: UTI ED Provider: Carloz Barth Discharge Problem: Hypomagnesemia, Lactic acidemia Patient Disposition: Admitted As Inpatient Discharge Instructions Interventions: ED Discharge Assessment Last Done: 04/21/20 15:58
[2020-04-21 12:34] LABS: Alkaline Phosphatase 82 U/L (45-117); Bilirubin,Total 0.5 mg/dl (0.2-1); Globulin 3.6 gm/dl (2.5-4.0); Total Protein 7.2 gm/dl (6.4-8.2); Troponin I < 0.015 ng/ml (0-0.045)
--- NOTE | 2020-04-21 12:55 | XRay Report ---
XR chest 1V portable CLINICAL HISTORY: SEPSIS COMPARISON STUDY: 04/13/2020 FINDINGS: The cardiac and mediastinal contours are normal. There is no evidence of focal pulmonary co nsolidation. There is no evidence of failure. No pleural effusions are visualized.[ IMPRESSION: No active disease in the chest. ACT 112: Negative or not required by law. Electronically signed by: Dwight Magana M.D. 04/21/2020 12:54 PM
[2020-04-21 13:23] LABS: Appearance Urine Clear (Clear); Bilirubin Urine Negative (Negative); Blood Urine Negative (Negative); Color Urine Dark Yellow; Glucose Urine UA Negative (Negative); Ketones Urine Trace (Negative); Leukocyte Esterase Urine Negative (Negative); Nitrite Urine Negative (Negative); Protein Urine Negative (Negative); Specific Gravity Urine 1.013 (1.000-1.030); Urobilinogen Urine Negative (Negative); pH Urine 5.5 (4.5-7.5)
--- NOTE | 2020-04-21 13:36 | CT Scan Report ---
CT OF THE HEAD WITHOUT CONTRAST CLINICAL HISTORY: Altered mental status. COMPARISON STUDY: Head CT April 13, 2020. CT DOSE: 614.27 mGy.cm TECHNIQUE: Helical axial images of the head were obtained without IV contrast. Automated exposure con trol was utilized for the study. A dose lowering technique was utilized adhering to the principles o f ALARA. FINDINGS: No acute intracranial hemorrhage, midline shift or mass effect is present. The ventricular system is unremarkable. The basilar cisterns are patent. No extra-axial collections are present. Ther e are no findings to suggest acute dural sinus thrombosis or acute territorial infarct. No significan t calvarial abnormalities are present. Visualized portions of the sinuses and mastoid air cells are c lear. Exam is mildly compromised by motion artifact. IMPRESSION: No acute intracranial findings. ACT 112: Negative or not required by law. Electronically signed by: Cyril Ortega M.D. 04/21/2020 1:34 PM
[2020-04-21] MEDS ORDERED: CEFEPIME 2,000 MG/20 ML VIAL IV STA (13:48)
--- NOTE | 2020-04-21 15:29 | History & Physical Report ---
Date of Service April 21, 2020 Assessment & Plan (1) Metabolic encephalopathy: Admit med surg obs No obvious s/s of infection - CXR clear, urinalysis without evidence of infection, no leukocytosis, VSS Alert/oriented but with some confusion Possibly secondary to poor po intake and dehydration Blood cultures pending ECG showing NSR (2) Acute dehydration: Lactic acid slightly elevated at 2.1 likely secondary to dehydration rather than infection as above, 1.2 on recheck Will gently hydrate with NSS@ 80 mls/hr (3) Diabetes mellitus: Type II Will continue patient's home metformin DMII diet BSGs ac & hs Last A1c 6.6 on 04/14 (4) Parkinson disease: Continue home Sinemet (5) Hypomagnesemia: Magnesium 1.6 Will give magnesium x 2g IV Recheck am (6) DVT prophylaxis: heparin subq History of Present Illness Ms. Nicole presents with her daughter who gives much of her history. She was recently discharged from [facility] on 04/15 for pneumonia and UTI. Since that time she has been somewhat more confused and very weak. Her daughter reports that she was supposed to have therapy at home but has not received it. She has not been eating very well. She has had more issues with urinary incontinence. Her daughter brought her to the ED because of her mental status. She has been having generalized pain but no specific complaints. No concerns for COVID exposures and she is not running a fever or coughing, no sob and she is saturating 98% on RA. She denies aches, chills, fevers, chest pain, lightheadedness, dysuria, hesitancy, n/v/d. Primary Care Provider: Kojo Cohen Allergies Allergy/AdvReac Type Severity Reaction Status Date / Time No Known Allergies Allergy Verified 04/21/20 11:58 Home Medications Home Medications Medication Instructions Recorded Confirmed Type acetaminophen [Tylenol Extra 500 mg PO QID PRN 07/14/18 04/21/20 History Strength] amantadine HCl 100 mg PO BID 07/14/18 04/21/20 History aspirin [Aspir-81] 81 mg PO DAILY 07/14/18 04/21/20 History azathioprine [Imuran] 50 mg PO DAILY 07/14/18 04/21/20 History cyanocobalamin (vitamin B-12) 1,000 mcg IM MONTHLY 07/14/18 04/21/20 History tramadol [Ultram] 50 mg PO Q6 PRN 07/14/18 04/21/20 History carbidopa-levodopa 1 tab PO HS 07/18/19 04/21/20 History ddkryocis-dlnlkpdw-nfrmxhadna 2 tab PO QID 04/13/20 04/21/20 History clobetasol 1 applic TOPICAL BID 04/13/20 04/21/20 History hydrocortisone 1 applic TOPICAL BID PRN 04/13/20 04/21/20 History metformin 1,000 mg PO BID 04/13/20 04/21/20 History multivitamin 1 tab PO DAILY 04/13/20 04/21/20 History nystatin-triamcinolone 1 applic TOPICAL BID PRN 04/13/20 04/21/20 History prednisone 0 mg PO DAILY 04/13/20 04/21/20 History doxycycline hyclate 100 mg PO DIRECTED 04/21/20 04/21/20 History nitrofurantoin monohyd/m-cryst 100 mg PO BID 04/21/20 04/21/20 History Past Med/Surg History Medical History Diabetes Hypertension (Chronic) Parkinson disease (Chronic) Paroxysmal atrial fibrillation QT prolongation Urinary tract infection (Acute) Family History Other Aneurysm Stroke Social History Preferred Language: Bol[place]ian Communication Ability: Effective 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 Beliefs That Will Affect Care: None marital status: / Current Living Situation: Family Current Living Situation Comment: dtr Feels Safe at Home: Yes Smoking Status: Never smoker Hx Alcohol Use: No Hx Substance Use: No Review of Systems Review of Systems: All systems reviewed & are unremarkable except as noted in HPI & below Physical Exam Physical Exam: General: no distress Eyes: normal inspection, PERLL Respiratory: chest non tender, clear to auscultation, normal breath sounds, no respiratory distress, no accessory muscle use Cardiac: regular rate and rhythm, no rub or gallop, no murmur, no edema, no jvd GI/: active bowel sounds, no abd pain or tenderness, soft, non distended Extremities: normal range of motion, normal strength, non tender Neuro/Psych: alert and oriented x 3, normal mood and affect, CN II - XII intact Skin: normal color, dry Results & Data Results & Data ([facility]) Vital Signs (Past 12 Hours) Vital Signs Temp Pulse Pulse Resp BP BP Pulse Ox 04/21/20 14:01 86 23 144/73 H 98 04/21/20 13:46 86 20 137/71 95 04/21/20 13:44 85 18 128/77 95 04/21/20 13:16 85 23 137/84 97 04/21/20 13:01 104 H 22 145/79 H 93 04/21/20 12:46 85 22 128/76 95 04/21/20 12:45 86 21 124/73 96 04/21/20 12:41 95 04/21/20 12:31 86 22 131/68 97 04/21/20 11:57 90 18 126/70 95 04/21/20 11:33 37.4 C 102 H 20 109/66 95 Code Status & VTE Plan Code Status DNR VTE Prophylaxis Plan VTE Prophylaxis will be ordered: Yes Supervising Physician Co-Signing Physician Notes Patient seen and examined with Justyna BLAKE. I agree with their exam findings, review of systems, assessment and plan. I personally reviewed the lab work and imaging as well. blood cultures growing out gram negative bacilli, most likely will correlate with the ESBL E coli in the urine will treat with Ertapenem told patient that she will be here through the weekend, will likely need SNF, assisted IV access - Gram negative bacilli bacteremia, most likely ESBL E coli plan for Ertapenem daily for 14 days after negative cultures, suggest repeat blood cultures on 04/24 PG Care Time/CCT Total # of Minutes Spent Total Time Spent with Patient: Total time spent is greater than 50% in coordination of care (as documented) at patient's floor/unit and/or counseling patient: Coding Level of Care Code 19923 Initial Inpt Care Lvl 3 Diagnoses Metabolic encephalopathy G93.41 Acute dehydration E86.0 Diabetes mellitus E11.9 Parkinson disease G20 Hypomagnesemia E83.42 DVT prophylaxis Z29.9
[2020-04-21] MEDS ORDERED: NYSTATIN/TRIAMCIN CR 15 GM TUBE EXT PRN (16:28)
[2020-04-21] MEDS ORDERED: ACETAMINOPHEN 500 MG TAB PO PRN (16:28)
[2020-04-21] MEDS: SODIUM CHLORIDE 0.9% 1000ML 1,000 ML IV SCH (17:12)
[2020-04-21] MEDS: MAGNESIUM SULFATE / D5W 1 GM/100 ML BAG IV SCH ×2 (17:27→19:54)
[2020-04-21] MEDS: METFORMIN HCL 500 MG TAB PO SCH (18:06)
[2020-04-21] MEDS: HEPARIN SOD 5,000 UNIT/0.5 ML VIAL SQ SCH (20:00)
[2020-04-21] MEDS: CARBIDOPA/LEVODOPA 50/200MG EXT REL TAB PO SCH (20:00)
[2020-04-22] MEDS: SODIUM CHLORIDE 0.9% 1000ML 1,000 ML IV SCH (05:40)
--- NOTE | 2020-04-22 06:02 | Electrocardiogram Report ---
Test Reason : Blood Pressure : / mmHG Vent. Rate : 090 BPM Atrial Rate : 090 BPM P-R Int : 168 ms QRS Dur : 086 ms QT Int : 376 ms P-R-T Axes : 027 -29 002 degrees QTc Int : 459 ms Normal sinus rhythm Voltage criteria for left ventricular hypertrophy Abnormal ECG When compared with ECG of 13-APR-2020 14:37, No significant change was found Confirmed by Jordan Burris ([id number]) on 04/22/2020 6:02:12 AM Referred By: Confirmed By:Jordan Burris
[2020-04-22 06:23] LABS: Basophils # (auto) 0.03 K/uL (0-0.2); Basophils % (auto) 0.5 %; Eosinophils # (auto) 0.33 K/uL (0-0.5); Eosinophils % (auto) 5.5 %; Hematocrit (blood only) 37.5 % (37-47); Hemoglobin 12.3 g/dL (12.0-16.0); Immature Granulocytes # (auto) 0.01 K/uL (0.00-0.02); Immature Granulocytes % (auto) 0.2 %; Lymphocytes # (auto) 1.06 K/uL (1.2-3.4); Lymphocytes % (auto) 17.5 %; Mean Corpuscular Hemoglobin 31.5 pg (25-34); Mean Corpuscular Hgb Conc 32.8 g/dL (32-36); Mean Corpuscular Volume 96.2 fL (80-100); Mean Platelet Volume 9.4 fL (7.4-10.4); Monocytes # (auto) 0.72 K/uL (0.11-0.59); Monocytes % (auto) 11.9 %; Neutrophils % (auto) 64.4 %; Platelet Count 379 K/uL (130-400); RDW Coefficient of Variation 14.1 % (11.5-14.5); RDW Standard Deviation 49.6 fL (36.4-46.3); White Blood Count 6.05 K/uL (4.8-10.8)
[2020-04-22 06:58] LABS: Albumin Level 3.1 gm/dl (3.4-5.0); BUN Creatinine Ratio 18.4 (10-20); Calcium 8.8 mg/dl (8.5-10.1); Creatinine Clr Calc Pharmacy 89.4 ml/min; Magnesium 2.1 mg/dl (1.8-2.4)
[2020-04-22 07:01] LABS: Albumin Globulin Ratio 0.8 (0.9-2); Bilirubin,Total 0.4 mg/dl (0.2-1); Globulin 3.9 gm/dl (2.5-4.0)
[2020-04-22] MEDS: ASPIRIN 81 MG ECTAB PO SCH (08:20)
[2020-04-22] MEDS: METFORMIN HCL 500 MG TAB PO SCH ×2 (08:20→17:25)
[2020-04-22] MEDS: azaTHIOprine 50 MG TAB PO SCH (08:20)
[2020-04-22] MEDS: HEPARIN SOD 5,000 UNIT/0.5 ML VIAL SQ SCH ×2 (08:21→20:30)
[2020-04-22] MEDS: AMANTADINE HCL 100 MG CAPSULE PO SCH ×2 (08:21→11:01)
[2020-04-22] MEDS: MULTIVITAMIN TAB PO SCH (08:23)
[2020-04-22] MEDS ORDERED: predniSONE 5 MG TAB PO SCH (09:00)
[2020-04-22] MEDS ORDERED: CEFEPIME 2,000 MG in SYRINGE 7.5 ML IV SCH (09:00)
[2020-04-22] MEDS: ERTAPENEM SODIUM 1,000 MG in SODIUM CHLORIDE 0.9% 50 ML IV SCH (09:19)
--- NOTE | 2020-04-22 15:34 | Hospitalist Progress Note ---
Date of Service April 22, 2020 Assessment & Plan (1) Metabolic encephalopathy: Resolving, secondary to bacteremia, deydration (2) Gram-negative bacteremia: Will likely be E coli ESBL as patient was diagnosed with this in her urine on 04/13. Will treat with ertapenem and await further identification Continue IVF No fevers or leukocytosis (3) Diabetes mellitus: Type II Will continue patient's home metformin DMII diet BSGs ac & hs Last A1c 6.6 on 04/14 Bsgs acceptable (4) Parkinson disease: Continue home Sinemet (5) Hypomagnesemia: Replaced and resolved (6) DVT prophylaxis: heparin subq Attempted to update patient's daughter but no answer, will try her again tomorro w. Admission and Anticipated Discharge Date Admission Date: April 22, 2020 Subjective Ms. Nicole was up to a chair at the time of my assessment, feeling fatigued but otherwise no complaints ROS Constitutional: no chills, aches, sweats or fever Respiratory: no sob,cough, sputum, or wheezing Cardiac: no chest pain, palpitations, edema, orthopnea or lightheadedness GI: no abdominal pain, nausea, vomiting, diarrhea or constipation : no dysuria or hesitancy Extremities: no joint pain or weakness Skin: no rash All other systems reviewed and negative Physical Exam Physical Exam: General: no distress Eyes: normal inspection, PERLL Respiratory: chest non tender, clear to auscultation, normal breath sounds, no respiratory distress, no accessory muscle use Cardiac: regular rate and rhythm, no rub or gallop, no murmur, no edema, no jvd GI/: active bowel sounds, no abd pain or tenderness, soft, non distended Extremities: normal range of motion, normal strength, non tender Neuro/Psych: alert and oriented x 3, normal mood and affect Skin: normal color, dry Results & Data Results & Data ([facility]) Vital Signs (Past 12 Hours) Vital Signs Temp Pulse Resp BP Pulse Ox 04/22/20 15:07 36.7 C 88 18 155/74 H 95 04/22/20 07:06 37.2 C 85 18 143/83 H 97 04/22/20 03:48 36.8 C 84 12 132/76 95 PG Care Time/CCT Total # of Minutes Spent Total Time Spent with Patient: Total time spent is greater than 50% in coordination of care (as documented) at patient's floor/unit and/or counseling patient: Coding Level of Care Code 06593 Subseq Hosp Care Lvl 2 Diagnoses Metabolic encephalopathy G93.41 Gram-negative bacteremia R78.81 Diabetes mellitus E11.9 Parkinson disease G20 Hypomagnesemia E83.42 DVT prophylaxis Z29.9
[2020-04-22] MEDS: CARBIDOPA/LEVODOPA 25/100MG TAB PO SCH ×2 (17:25→20:29)
[2020-04-22] MEDS: ENTACAPONE 200 MG TAB PO SCH ×2 (17:25→20:29)
[2020-04-22] MEDS: CARBIDOPA/LEVODOPA 50/200MG EXT REL TAB PO SCH (20:28)
--- NOTE | 2020-04-23 08:41 | Hospitalist Progress Note ---
Date of Service April 23, 2020 Assessment & Plan (1) Gram-negative bacteremia: Will likely be E coli ESBL as patient was diagnosed with this in her urine on 04/13. Will treat with ertapenem and await further identification. Patient will need 7-14 days of antibiotics. Continue IVF No fevers or leukocytosis Present on Admission?: Yes (2) Metabolic encephalopathy: Resolving, secondary to bacteremia, deydration (3) Acute dehydration: Gentle hydration given, will discontinue now that patient has improved (4) Diabetes mellitus: Type II Continue patient's home metformin DMII diet BSGs ac & hs Last A1c 6.6 on 04/14 Bsgs acceptable (5) Parkinson disease: Continue home Sinemet (6) Hypomagnesemia: Replaced and resolved (7) DVT prophylaxis: heparin subq Updated patient's daughter over the phone Admission and Anticipated Discharge Date Admission Date: April 22, 2020 Supervising Physician Co-Signing Physician Notes chart reviewed and case d/w S Sha BLAKE. as above Subjective Ms. Nicole feels like she has generalized pain but is unable to be more specific. She has no other complaints ROS Constitutional: no chills, aches, sweats or fever Respiratory: no sob,cough, sputum, or wheezing Cardiac: no chest pain, palpitations, edema, orthopnea or lightheadedness GI: no abdominal pain, nausea, vomiting, diarrhea or constipation : no dysuria or hesitancy Extremities: no joint pain or weakness Skin: no rash All other systems reviewed and negative Physical Exam Physical Exam: General: no distress Eyes: normal inspection, PERLL Respiratory: chest non tender, clear to auscultation, normal breath sounds, no respiratory distress, no accessory muscle use Cardiac: regular rate and rhythm, no rub or gallop, no murmur, no edema, no jvd GI/: active bowel sounds, no abd pain or tenderness, soft, non distended Extremities: normal range of motion, normal strength, non tender Neuro/Psych: alert and oriented x 3, normal mood and affect Skin: normal color, dry Results & Data Results & Data ([facility]) Vital Signs (Past 12 Hours) Vital Signs Temp Pulse Resp BP BP Pulse Ox 04/23/20 07:47 36.6 C 96 H 17 125/67 96 04/22/20 22:50 36.4 C L 85 16 121/55 L 95 PG Care Time/CCT Total # of Minutes Spent Total Time Spent with Patient: Total time spent is greater than 50% in coordination of care (as documented) at patient's floor/unit and/or counseling patient: Coding Level of Care Code 32155 Subseq Hosp Care Lvl 2 Diagnoses Gram-negative bacteremia R78.81 Metabolic encephalopathy G93.41 Acute dehydration E86.0 Diabetes mellitus E11.9 Parkinson disease G20 Hypomagnesemia E83.42 DVT prophylaxis Z29.9
[2020-04-23] MEDS: METFORMIN HCL 500 MG TAB PO SCH ×2 (08:43→17:30)
[2020-04-23] MEDS: ENTACAPONE 200 MG TAB PO SCH ×4 (08:45→20:57)
[2020-04-23] MEDS: AMANTADINE HCL 100 MG CAPSULE PO SCH ×2 (08:45→12:21)
[2020-04-23] MEDS: ASPIRIN 81 MG ECTAB PO SCH (08:45)
[2020-04-23] MEDS: CARBIDOPA/LEVODOPA 25/100MG TAB PO SCH ×4 (08:45→20:57)
[2020-04-23] MEDS: azaTHIOprine 50 MG TAB PO SCH (08:46)
[2020-04-23] MEDS: MULTIVITAMIN TAB PO SCH (08:46)
[2020-04-23] MEDS: HEPARIN SOD 5,000 UNIT/0.5 ML VIAL SQ SCH ×2 (08:47→20:58)
[2020-04-23 09:32] LABS: Basophils # (auto) 0.02 K/uL (0-0.2); Basophils % (auto) 0.3 %; Eosinophils % (auto) 4.4 %; Hemoglobin 12.4 g/dL (12.0-16.0); Immature Granulocytes # (auto) 0.01 K/uL (0.00-0.02); Immature Granulocytes % (auto) 0.1 %; Lymphocytes % (auto) 17.7 %; Mean Corpuscular Hemoglobin 32.1 pg (25-34); Mean Corpuscular Hgb Conc 33.5 g/dL (32-36); Mean Corpuscular Volume 95.9 fL (80-100); Mean Platelet Volume 9.5 fL (7.4-10.4); Monocytes % (auto) 8.8 %; Neutrophils # (auto) 4.65 K/uL (1.4-6.5); Neutrophils % (auto) 68.7 %; Platelet Count 366 K/uL (130-400); RDW Coefficient of Variation 14.6 % (11.5-14.5); RDW Standard Deviation 50.9 fL (36.4-46.3); Red Blood Count 3.86 M/uL (4.2-5.4); White Blood Count 6.78 K/uL (4.8-10.8)
[2020-04-23 10:07] LABS: BUN Creatinine Ratio 12.4 (10-20); Calcium 9.3 mg/dl (8.5-10.1); Creatinine Clr Calc Pharmacy 79.3 ml/min; Est GFR (Non-African American) 84.6
[2020-04-23] MEDS: ERTAPENEM SODIUM 1,000 MG in SODIUM CHLORIDE 0.9% 50 ML IV SCH (10:21)
[2020-04-23] MEDS: CARBIDOPA/LEVODOPA 50/200MG EXT REL TAB PO SCH (20:58)
[2020-04-23] MEDS: TRAMADOL HCL 50 MG TABLET PO PRN (23:43)
[2020-04-24 09:11] LABS: Hematocrit (blood only) 36.2 % (37-47); Hemoglobin 11.9 g/dL (12.0-16.0); Mean Corpuscular Hemoglobin 31.9 pg (25-34); Mean Corpuscular Hgb Conc 32.9 g/dL (32-36); Mean Corpuscular Volume 97.1 fL (80-100); Mean Platelet Volume 9.5 fL (7.4-10.4); Platelet Count 381 K/uL (130-400); RDW Coefficient of Variation 14.4 % (11.5-14.5); RDW Standard Deviation 51.1 fL (36.4-46.3); Red Blood Count 3.73 M/uL (4.2-5.4); White Blood Count 6.83 K/uL (4.8-10.8)
[2020-04-24] MEDS: METFORMIN HCL 500 MG TAB PO SCH ×2 (09:31→17:05)
[2020-04-24] MEDS: AMANTADINE HCL 100 MG CAPSULE PO SCH ×2 (09:32→12:49)
[2020-04-24] MEDS: ENTACAPONE 200 MG TAB PO SCH ×4 (09:32→20:28)
[2020-04-24] MEDS: CARBIDOPA/LEVODOPA 25/100MG TAB PO SCH ×4 (09:32→20:28)
[2020-04-24] MEDS: HEPARIN SOD 5,000 UNIT/0.5 ML VIAL SQ SCH ×2 (09:36→20:28)
[2020-04-24] MEDS: ASPIRIN 81 MG ECTAB PO SCH (09:37)
[2020-04-24] MEDS: MULTIVITAMIN TAB PO SCH (09:38)
[2020-04-24] MEDS: azaTHIOprine 50 MG TAB PO SCH (09:38)
[2020-04-24 09:44] LABS: BUN Creatinine Ratio 12.2 (10-20); Calcium 9.4 mg/dl (8.5-10.1); Creatinine Clr Calc Pharmacy 96.4 ml/min; Est GFR (African American) 104.5; Est GFR (Non-African American) 90.2; Potassium 3.8 mmol/L (3.5-5.1)
[2020-04-24] MEDS: CIPROFLOXACIN / D5W 400 MG/200 ML BAG IV SCH ×2 (10:42→21:55)
--- NOTE | 2020-04-24 13:48 | Hospitalist Progress Note ---
Date of Service April 24, 2020 Assessment & Plan (1) Gram-negative bacteremia: Growing pseudomonas in her blood cultures, ertapenem changed to Cipro per sensitivities, patient will need 7-14 days of antibiotics. Continue IVF No fevers or leukocytosis (2) Metabolic encephalopathy: Resolved, secondary to bacteremia, deydration (3) Acute dehydration: Resolved (4) Diabetes mellitus: Type II Continue patient's home metformin DMII diet BSGs ac & hs Last A1c 6.6 on 04/14 Bsgs acceptable (5) Parkinson disease: Continue home Sinemet (6) Hypomagnesemia: Replaced and resolved (7) DVT prophylaxis: heparin subq Dispo: home with home health, possibly tomorrow after 24 hours of IV abx for pseudomonas depending on her improvement. Patient's daughter, Pili, updated over the phone Admission and Anticipated Discharge Date Admission Date: April 22, 2020 Supervising Physician Co-Signing Physician Notes chart reviewed and case d/w S Sha BLAKE. as above Subjective Ms. Nicole is feeling fatigued but otherwise has no complaints ROS Constitutional: no chills, aches, sweats or fever Respiratory: no sob,cough, sputum, or wheezing Cardiac: no chest pain, palpitations, edema, orthopnea or lightheadedness GI: no abdominal pain, nausea, vomiting, diarrhea or constipation : no dysuria or hesitancy Extremities: no joint pain or weakness Skin: no rash All other systems reviewed and negative Physical Exam Physical Exam: General: no distress Eyes: normal inspection, PERLL Respiratory: chest non tender, clear to auscultation, normal breath sounds, no respiratory distress, no accessory muscle use Cardiac: regular rate and rhythm, no rub or gallop, no murmur, no edema, no jvd GI/: active bowel sounds, no abd pain or tenderness, soft, non distended Extremities: normal range of motion, normal strength, non tender Neuro/Psych: alert and oriented x 3, normal mood and affect Skin: normal color, dry Results & Data Results & Data ([facility]) Vital Signs (Past 12 Hours) Vital Signs Temp Pulse Resp BP Pulse Ox 04/24/20 08:00 36.5 C 76 18 118/71 95 PG Care Time/CCT Total # of Minutes Spent Total Time Spent with Patient: Total time spent is greater than 50% in coordination of care (as documented) at patient's floor/unit and/or counseling patient: Coding Level of Care Code 20490 Subseq Hosp Care Lvl 2 Diagnoses Gram-negative bacteremia R78.81 Metabolic encephalopathy G93.41 Acute dehydration E86.0 Diabetes mellitus E11.9 Parkinson disease G20 Hypomagnesemia E83.42 DVT prophylaxis Z29.9
[2020-04-24] MEDS: CARBIDOPA/LEVODOPA 50/200MG EXT REL TAB PO SCH (20:28)
[2020-04-24] MEDS: TRAMADOL HCL 50 MG TABLET PO PRN (20:39)
[2020-04-25 07:57] LABS: Basophils # (auto) 0.04 K/uL (0-0.2); Basophils % (auto) 0.6 %; Eosinophils # (auto) 0.46 K/uL (0-0.5); Eosinophils % (auto) 7.1 %; Hematocrit (blood only) 37.2 % (37-47); Hemoglobin 11.9 g/dL (12.0-16.0); Immature Granulocytes # (auto) 0.01 K/uL (0.00-0.02); Immature Granulocytes % (auto) 0.2 %; Lymphocytes # (auto) 1.21 K/uL (1.2-3.4); Lymphocytes % (auto) 18.7 %; Mean Corpuscular Hemoglobin 31.2 pg (25-34); Mean Corpuscular Volume 97.4 fL (80-100); Mean Platelet Volume 9.5 fL (7.4-10.4); Monocytes # (auto) 0.52 K/uL (0.11-0.59); Neutrophils # (auto) 4.22 K/uL (1.4-6.5); Neutrophils % (auto) 65.4 %; Platelet Count 390 K/uL (130-400); RDW Coefficient of Variation 14.3 % (11.5-14.5); RDW Standard Deviation 51.3 fL (36.4-46.3); Red Blood Count 3.82 M/uL (4.2-5.4); White Blood Count 6.46 K/uL (4.8-10.8)
[2020-04-25 08:24] LABS: BUN Creatinine Ratio 11.9 (10-20); Calcium 9.5 mg/dl (8.5-10.1); Creatinine Clr Calc Pharmacy 89.4 ml/min; Potassium 4.1 mmol/L (3.5-5.1)
[2020-04-25] MEDS: AMANTADINE HCL 100 MG CAPSULE PO SCH ×2 (08:39→12:14)
[2020-04-25] MEDS: METFORMIN HCL 500 MG TAB PO SCH ×2 (08:39→16:24)
[2020-04-25] MEDS: MULTIVITAMIN TAB PO SCH (08:40)
[2020-04-25] MEDS: azaTHIOprine 50 MG TAB PO SCH (08:40)
[2020-04-25] MEDS: ENTACAPONE 200 MG TAB PO SCH ×4 (08:40→19:48)
[2020-04-25] MEDS: CARBIDOPA/LEVODOPA 25/100MG TAB PO SCH ×4 (08:40→19:47)
[2020-04-25] MEDS: ASPIRIN 81 MG ECTAB PO SCH (08:40)
[2020-04-25] MEDS: HEPARIN SOD 5,000 UNIT/0.5 ML VIAL SQ SCH ×2 (08:41→21:16)
[2020-04-25] MEDS: CIPROFLOXACIN / D5W 400 MG/200 ML BAG IV SCH ×2 (09:59→21:26)
--- NOTE | 2020-04-25 14:18 | Hospitalist Progress Note ---
Date of Service April 25, 2020 Assessment & Plan (1) Gram-negative bacteremia: Growing pseudomonas in her blood cultures, ertapenem changed to Cipro per sensitivities, patient will need 7-14 days of antibiotics, first day of treatment was 04/24. No fevers or leukocytosis (2) Metabolic encephalopathy: Resolved, secondary to bacteremia, deydration (3) Acute dehydration: Resolved (4) Diabetes mellitus: Type II Continue patient's home metformin DMII diet BSGs ac & hs Last A1c 6.6 on 04/14 Bsgs acceptable (5) Parkinson disease: Continue home Sinemet (6) Hypomagnesemia: Replaced and resolved (7) DVT prophylaxis: heparin subq Dispo: home with home health and 24 hour care by family. Will likely be ready for discharge Sunday. Spoke with daughter Pili and updated her. Admission and Anticipated Discharge Date Admission Date: April 22, 2020 Supervising Physician Co-Signing Physician Notes case d/w S Sha BLAKE. as above Subjective Ms. Nicole is still feeling quite weak with generalized aching. ROS Constitutional: no chills, aches, sweats or fever Respiratory: no sob,cough, sputum, or wheezing Cardiac: no chest pain, palpitations, edema, orthopnea or lightheadedness GI: no abdominal pain, nausea, vomiting, diarrhea or constipation : no dysuria or hesitancy Extremities: no joint pain or weakness Skin: no rash All other systems reviewed and negative Physical Exam Physical Exam: General: no distress Eyes: normal inspection, PERLL Respiratory: chest non tender, clear to auscultation, normal breath sounds, no respiratory distress, no accessory muscle use Cardiac: regular rate and rhythm, no rub or gallop, no murmur, no edema, no jvd GI/: active bowel sounds, no abd pain or tenderness, soft, non distended Extremities: normal range of motion, generalized weakness, non tender Neuro/Psych: alert and oriented x 3, normal mood and affect Skin: normal color, dry Results & Data Results & Data ([facility]) Vital Signs (Past 12 Hours) Vital Signs Temp Pulse Resp BP Pulse Ox 04/25/20 07:46 36.6 C 83 18 134/78 94 PG Care Time/CCT Total # of Minutes Spent Total Time Spent with Patient: Total time spent is greater than 50% in coordination of care (as documented) at patient's floor/unit and/or counseling patient: Coding Level of Care Code 23656 Subseq Hosp Care Lvl 2 Diagnoses Gram-negative bacteremia R78.81 Metabolic encephalopathy G93.41 Acute dehydration E86.0 Diabetes mellitus E11.9 Parkinson disease G20 Hypomagnesemia E83.42 DVT prophylaxis Z29.9
[2020-04-25] MEDS: CARBIDOPA/LEVODOPA 50/200MG EXT REL TAB PO SCH (21:18)
[2020-04-26 05:21] LABS: Hematocrit (blood only) 35.2 % (37-47); Hemoglobin 11.5 g/dL (12.0-16.0); Mean Corpuscular Hemoglobin 31.9 pg (25-34); Mean Corpuscular Hgb Conc 32.7 g/dL (32-36); Mean Corpuscular Volume 97.5 fL (80-100); Mean Platelet Volume 9.5 fL (7.4-10.4); Platelet Count 368 K/uL (130-400); RDW Coefficient of Variation 14.3 % (11.5-14.5); RDW Standard Deviation 51.1 fL (36.4-46.3); Red Blood Count 3.61 M/uL (4.2-5.4); White Blood Count 6.52 K/uL (4.8-10.8)
[2020-04-26 05:50] LABS: BUN Creatinine Ratio 12.5 (10-20); Est GFR (African American) 102.6; Est GFR (Non-African American) 88.5; Potassium 3.9 mmol/L (3.5-5.1)
[2020-04-26] MEDS: MULTIVITAMIN TAB PO SCH (08:36)
[2020-04-26] MEDS: azaTHIOprine 50 MG TAB PO SCH (08:36)
[2020-04-26] MEDS: ASPIRIN 81 MG ECTAB PO SCH (08:36)
[2020-04-26] MEDS: AMANTADINE HCL 100 MG CAPSULE PO SCH ×2 (08:36→11:20)
[2020-04-26] MEDS: METFORMIN HCL 500 MG TAB PO SCH (08:37)
[2020-04-26] MEDS: ENTACAPONE 200 MG TAB PO SCH ×2 (08:37→11:20)
[2020-04-26] MEDS: CARBIDOPA/LEVODOPA 25/100MG TAB PO SCH ×2 (08:37→11:20)
[2020-04-26] MEDS: HEPARIN SOD 5,000 UNIT/0.5 ML VIAL SQ SCH (08:38)
[2020-04-26] MEDS: CIPROFLOXACIN / D5W 400 MG/200 ML BAG IV SCH (09:17)
--- NOTE | 2020-04-26 11:49 | Discharge Summary ---
Date of Service April 26, 2020 Admission HPI Per Admitting Provider Ms. Nicole presents with her daughter who gives much of her history. She was recently discharged from [facility] on 04/15 for pneumonia and UTI. Since that time she has been somewhat more confused and very weak. Her daughter reports that she was supposed to have therapy at home but has not received it. She has not been eating very well. She has had more issues with urinary incontinence. Her daughter brought her to the ED because of her mental status. She has been having generalized pain but no specific complaints. No concerns for COVID exposures and she is not running a fever or coughing, no sob and she is saturating 98% on RA. She denies aches, chills, fevers, chest pain, lightheadedness, dysuria, hesitancy, n/v/d. Principal Diagnosis Pseudomonas aeruginosa bacteremia, acute metabolic encephalopathy Discharge Exam Constitutional WD/WN, vitals as above + overweight Eyes + anicteric sclerae Neck trachea midline, no thyromegaly Respiratory normal respiratory effort, lungs clear to auscultation Cardiovascular RRR, no murmur, no edema Chest (Breasts) Chest: normal inspection of chest Gastrointestinal (Abdomen) normal bowel sounds, soft, nontender, no hepatosplenomegaly Musculoskeletal Extremities: extremities normal to inspection; no cyanosis and no clubbing Skin + rash (Multiple small macular scaly lesions scattered on body) Neurologic moves all extremities and awake; no focal motor deficits Psychiatric A+Ox3, euthymic affect Lymphatic no lymphedema Discharge Data Allergies Allergy/AdvReac Type Severity Reaction Status Date / Time No Known Allergies Allergy Verified 04/21/20 11:58 Consultations 04/21/20 13:48 ED Decision to Admit Stat 04/21/20 16:28 Consult Case Management - Discharge Planning Routine Ordered Studies 04/21/20 12:24 CT head/brain wo con Stat Chest x-ray Hospital Course (1) Gram-negative bacteremia: Presented with acute metabolic encephalopathy after recent hospitalization for an ESBL E. coli UTI and possible pneumonia. She was sent home on nitrofurantoin and doxycycline after that admission. Urinalysis here was normal, however she was on antibiotics. She ended up growing out pseudomonas aeruginosa in 2/2 of her blood cultures- ertapenem changed to Cipro per sensitivities, patient will need a total of 14 days of antibiotics No fevers or leukocytosis and her condition was much improved at time of discharge-she was tolerating p.o., no diarrhea, and mental status seemed much improved (2) Metabolic encephalopathy: Resolved, secondary to bacteremia, deydration (3) Acute dehydration: Resolved (4) Diabetes mellitus: Type II Continue patient's home metformin DMII diet BSGs ac & hs Last A1c 6.6 on 04/14 Bsgs acceptable (5) Parkinson disease: Continue home Sinemet and entacapone as well as amantadine (6) Hypomagnesemia: Replaced and resolved (7) DVT prophylaxis: heparin subq Dispo: home with home health and 24 hour care by family. Stable for discharge home today. I discussed her care with her daughter Pili on the phone. Total Time Total Time Spent Total Time Spent (In Minutes): Greater than 30 minutes Total Time Includes: Examination of the Patient, Discharge Planning and Medication Reconciliation Discharge Plan Discharge Items Patient Disposition: Home - Home Health Services Reason For Visit: WEAKNESS Discharge Diagnosis: Pseudomonas bacteremia, acute metabolic encephalopathy Condition on Discharge: Fair Activity: Resume your previous activity Non-emergency contact: Primary Care Provider Call non-emergency contact if: you have any medication questions, your symptoms worsen, you have a fever and your temperature is above 101 Follow-up/Referrals: Kojo Cohen [Primary Care Provider] - Diet: Carb Consistent or DM2 Addtl Attending Provider Instructions: You were admitted for weakness and found to have bacteria called Pseudomonas growing in your bloodstream. Please finish out the course of Cipro for your antibiotic as prescribed for 9 more days. Please follow-up with either your primary care physician through a virtual telephone visit or through the visiting doctor from your health insurance at your home. Pending Studies at Discharge: No Stand-Alone Forms: My [facility] Medications and DC Order Prescriptions: New ciprofloxacin HCl [Cipro] 500 mg tablet 500 mg PO BID Qty: 18 RF: 0 Continued azathioprine [Imuran] 50 mg tablet 50 mg PO DAILY RF: 0 tramadol [Ultram] 50 mg tablet 50 mg PO Q6 PRN (Reason: Pain) RF: 0 amantadine HCl 100 mg capsule 100 mg PO BID RF: 0 cyanocobalamin (vitamin B-12) 1,000 mcg/mL Solution 1,000 mcg IM MONTHLY RF: 0 aspirin [Aspir-81] 81 mg Tablet,Delayed Release (Dr/Ec) 81 mg PO DAILY RF: 0 acetaminophen [Tylenol Extra Strength] 500 mg Tablet 500 mg PO QID PRN (Reason: Pain) RF: 0 metformin 1,000 mg Tablet 1,000 mg PO BID RF: 0 nystatin-triamcinolone 100,000-0.1 unit/g-% Cream 1 applic TOPICAL BID PRN (Reason: UNDER BREAST PRN) RF: 0 memvkaqwa-vuudibyr-bgskhtwjxj 25-100-200 mg Tablet 2 tab PO QID RF: 0 clobetasol 0.05 % cream 1 applic TOPICAL BID RF: 0 hydrocortisone 2.5 % Cream 1 applic TOPICAL BID PRN (Reason: Skin Irritation) RF: 0 multivitamin Tablet,Chewable 1 tab PO DAILY RF: 0 carbidopa-levodopa 50-200 mg Tablet Extended Release 1 tab PO HS RF: 0 Changed prednisone 5 mg Tablet 0 mg PO UD Qty: 0 RF: 0 Discontinued doxycycline hyclate 100 mg capsule 100 mg PO DIRECTED RF: 0 nitrofurantoin monohyd/m-cryst 100 mg capsule 100 mg PO BID RF: 0 Discharge Orders: Discharge Order (Routine); Ordered 04/26/20 Ordered By: Denise Mchugh Admission Data Admit Date/Time: 04/22/20 13:13 Attending Provider: Denise Mchugh Admit Provider: Griffin Hernandez Primary Care Provider: Kojo Cohen Other Providers: Demian Trejo Coding Level of Care Code D/C Day Management >30 mins Diagnoses Gram-negative bacteremia R78.81 Metabolic encephalopathy G93.41 Acute dehydration E86.0 Diabetes mellitus E11.9 Parkinson disease G20 Hypomagnesemia E83.42 DVT prophylaxis Z29.9
[2020-04-30] MEDS ORDERED: CYANOCOBALAMIN 1000 MCG/ML VIAL IM SCH (09:00)
== END 2020-04-26 13:55 | disposition home health service (06) | DRG 871 ==
LOC: ED 11:28 → 2N 11:28 → 3N 04-22 03:42 → SUATTDRO 04-22 13:13

== ENCOUNTER 2020-05-01 04:26 | Inpatient (IN) ==
[2020-05-01] MEDS ORDERED: SODIUM CHLORIDE 0.9% 1000ML 2,000 ML IV ONE (04:33)
--- NOTE | 2020-05-01 04:38 | Emergency Department Note ---
Impression & Plan Sepsis, Altered mental status, Colitis ED Provider Note Name: GERMAINE PRASAD Age: 80 Sex: F Arrives Via: Ambulance Informant: EMS ED Provider: Jose C Cedillo MD Chief Complaint: Sepsis Impression: Sepsis Altered Mental Status Colitis Medical Decision Makin yr old patient with parkinsons, dmii, dementia, htn, recent sepsis secondary to Pseudomonas bacteremia and Ecoli UTI arrives confused and febrile. She is moving head around and does not appear to have photophobia. Seems unlikely Meningitis at this time. Labs obtained with blood cultures which are unremarkable. Initially felt to likely be Sepsis secondary to UTI and without other symptoms was not initially isolated, however with normal UA and clear CXR, out of an abundance of caution we placed patient in COVID Isolation. I will note that while not having gown on, I did use N95, face shield, procedure mask and gloves with this patient as is my standard with all patients during covid pandemic. Covid nasal swab sent. Patient given IV fluids (30ml/kg IV), and empiric ABX of Zosyn as this was coverage of recent Pseudomonas and Ecoli infections, and she just finished round of cipro. She has soft abdomen but given fever unknown origin felt it necessary to obtain imaging of abdomen as well as CT head as fall at home which is negative. CT abdo pelv reveals colitis which given normal lactate seems unlikely ischemic in nature, ct also with questionable gallbladder infection. Unknown if recent diarrhea and no bowel movement while in ED thus can not send for testing at this time. EKG without acute changes nor ACS and trop currently negative. Hospitalist contacted for further management of this ill patient. Will note that patient continued confusion/somnolence throughout ED stay though maintains airway, which I suspect is partially Ativan IV by EMS for her initial agitation. Prior Medical Record and Triage/Nursing Notes reviewed by Me Additional history obtained from EMS and Chart Differentials:Infection, hypoglycemia, electrolyte abnormalities, overdose, toxicologic, cardiac sources, intracerebral event, neurologic, trauma, as well as other pathologies. Vital Signs: reviewed and remarkable for febrile Interventions: saline lock, nss bolus 2 L IV (30ml/kg), Zosyn 4.5mg IV Labs:Reviewed and remarkable for no significant abnormalities Imaging:X ray results are stated below per my interpretation: Chest: 1 view: No infiltrate, no effusion, normal cardiac border. EKG:Per My Interpretation: Indication Sepsis: Sinus Tach 106 bpm, qtc 470. No Ectopy. No Ischemia. Compared to EKG 04/21/20, no significant changes. Cardiac/Tele Monitoring: Cardiac Monitoring: An Order was placed for continuous cardiac monitoring. The monitor shows a rate of 80 with a normal sinus rhythm. Consults: [place] Hospitalist for further management Plan: Disposition:Hospitalization. Condition: Fair Blood pressure:Normal.No Referral necessary Prescriptions:none PDMP: n/a History of Present Illness:80 / female arrives for evaluation of sepsis. Patient with recurrent infection including 2 recent admission for Ecoli UTI and Pseudomonas bacteremia. She just finished course of cipro. This evening family found her confused and altered thrashing about on the floor. EMS arrived and patient very agitated and thrashing on bed. She received Ativan 0.5mg IV x 2 over the transport time with vast improvement in agitation. Confusion continued throughout trip. She was noted to be diaphoretic as well. Family reported patient was acting herself the last few days other than a bit more tired than us ual without much of an appetite. No new medications reported. Nothing made better nor worse. No known trauma other than she was found on the floor next to bed. No blood thinner use. She has parkinsons. Per chart she is on prednisone though this is unclear as she can not give ROS. On arrival patient found to be febrile. ROS: Unable to obtain as patient ocnfused Past Medical History:See Below Past Surgical History:See Below Family History:See Below Social History:See Below Home Medications:See Below Allergies:See Below Vitals:Blood Pressure: 128/70 , Pulse 107, RR 18, T 38.1C, O2 95% on RA Physical Exam: GENERAL: Patient is ill appearing and in mild distress. Diaphoretic, confused, and looking around room EYES: No scleral icterus, unremarkable pupils. ENT: Mucous membranes dry, no nasal congestion. NECK: No masses appreciated, nomeningismus, trachea is midline. RESPIRATORY: No dyspnea. Clear to auscultation and equal bilaterally. No wheeze, no rhonchi. CARDIOVASCULAR: Regular rate and rhythm.No murmurs, rubs, gallops appreciated. GASTROINTESTINAL: Abdomen soft, non-tender, no peritonitis.Bowel sounds positive.No masses appreciated. BACK: No midline tenderness, no CVA tenderness EXTREMITIES: Normal motion all extremities, no cyanosis, no edema. NEUROLOGIC: Confused mumbling awake, no acute motor or sensory deficits, no focal weakness, cranial nerves grossly intact. SKIN: No rash, no jaundice, ++ diaphoresis. 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 Beliefs That Will Affect Care: None marital status: / Current Living Situation: Family Current Living Situation Comment: DGT Other Information That Helps Us Care for You: No Feels Safe at Home: Yes Safety Concerns: Feels Safe At This Time Smoking Status: Never smoker Hx Alcohol Use: No Hx Substance Use: No Allergies Allergies Allergy/AdvReac Type Severity Reaction Status Date / Time No Known Allergies Allergy Verified 05/01/20 04:55 Home Meds Home Medications Medication Instructions Recorded Confirmed acetaminophen [Tylenol Extra 500 mg PO QID PRN 07/14/18 05/01/20 Strength] amantadine HCl 100 mg PO BID 07/14/18 05/01/20 aspirin [Aspir-81] 81 mg PO DAILY 07/14/18 05/01/20 azathioprine [Imuran] 50 mg PO DAILY 07/14/18 05/01/20 cyanocobalamin (vitamin B-12) 1,000 mcg IM MONTHLY 07/14/18 05/01/20 tramadol [Ultram] 50 mg PO Q6 PRN 07/14/18 05/01/20 carbidopa-levodopa 1 tab PO HS 07/18/19 05/01/20 yftxrhzgg-ktanpitn-eeumckrdvt 2 tab PO QID 04/13/20 05/01/20 clobetasol 1 applic TOPICAL BID 04/13/20 05/01/20 hydrocortisone 1 applic TOPICAL BID PRN 04/13/20 05/01/20 metformin 1,000 mg PO BID 04/13/20 05/01/20 multivitamin 1 tab PO DAILY 04/13/20 05/01/20 nystatin-triamcinolone 1 applic TOPICAL BID PRN 04/13/20 05/01/20 Previous Rx's Medication Instructions Recorded ciprofloxacin HCl [Cipro] 500 mg PO BID #18 tab 04/26/20 Results & Data (ED) Vital Signs Vital Signs - 24 hr 05/01/20 04:58 05/01/20 05:00 05/01/20 05:30 Temperature 38.1 C H Temperature Source Oral Pulse Rate 107 H 98 H 96 H Pulse Rate [Apical] Pulse Rate from SpO2 Sensor 98 H Pulse Rhythm Regular Pulse Strength Normal Respiratory Rate 18 25 H 24 Respiratory Effort / Characteristics Non-Labored Spontaneous Respiratory Depth Normal Respiratory Pattern Regular Blood Pressure 128/70 106/50 L 98/51 L Blood Pressure [Right Arm] Blood Pressure Mean 89 61 57 Blood Pressure Mean [Right Arm] Blood Pressure Position Lying Pulse Oximetry 95 95 Oxygen Delivery Method Room Air Sepsis Recent Fever Within 48 Hours Yes Sepsis New/Unexplained Change in Mental Status No Sepsis Action Taken by Nursing Physician Notified 05/01/20 06:00 05/01/20 06:46 05/01/20 07:48 Temperature 36.6 C Temperature Source Oral Pulse Rate 92 H Pulse Rate [Apical] 88 98 H Pulse Rate from SpO2 Sensor Pulse Rhythm Pulse Strength Respiratory Rate 23 22 24 Respiratory Effort / Characteristics Non-Labored Spontaneous Respiratory Depth Normal Respiratory Pattern Blood Pressure 95/70 L Blood Pressure [Right Arm] 126/80 132/86 Blood Pressure Mean 75 Blood Pressure Mean [Right Arm] 95 101 Blood Pressure Position Pulse Oximetry 95 95 Oxygen Delivery Method Room Air Room Air Sepsis Recent Fever Within 48 Hours Sepsis New/Unexplained Change in Mental Status Sepsis Action Taken by Nursing Laboratory Data Result diagrams: 05/01/20 05:25 05/01/20 05:25 Lab Results 05/01/20 05/01/20 05/01/20 Range/Units 04:45 05:25 05:25 WBC 10.97 H (4.8-10.8) K/uL RBC 3.58 L (4.2-5.4) M/uL Hgb 11.3 L (12.0-16.0) g/dL Hct 34.1 L (37-47) % MCV 95.3 (80-100) fL MCH 31.6 (25-34) pg MCHC 33.1 (32-36) g/dL RDW Std Deviation 49.2 H (36.4-46.3) fL RDW Coeff of [place] 14.1 (11.5-14.5) % Plt Count 380 (130-400) K/uL MPV 9.7 (7.4-10.4) fL Immature Gran % (Auto) 0.2 % Neut % (Auto) 81.7 % Lymph % (Auto) 8.4 % [place] % (Auto) 7.4 % Eos % (Auto) 1.8 % Baso % (Auto) 0.5 % Neut # (Auto) 8.97 H (1.4-6.5) K/uL Lymph # (Auto) 0.92 L (1.2-3.4) K/uL [place] # (Auto) 0.81 H (0.11-0.59) K/uL Eos # (Auto) 0.20 (0-0.5) K/uL Baso # (Auto) 0.05 (0-0.2) K/uL Immature Gran # (Auto) 0.02 (0.00-0.02) K/uL PT (9.0-12.0) Seconds INR (0.9-1.1) Sodium 139 (136-145) mmol/L Potassium 3.8 (3.5-5.1) mmol/L Chloride 108 H (98-107) mmol/L Carbon Dioxide 21 (21-32) mmol/L Anion Gap 10.0 (3-11) BUN 12 (7-18) mg/dl Creatinine 0.63 (0.6-1.2) mg/dl Est Cr Clr Drug Dosing 80.8 ml/min Est GFR ( Amer) 97.5 Est GFR (Non-Af Amer) 84.1 BUN/Creatinine Ratio 19.0 (10-20) Glucose 106 H (70-99) mg/dl Lactate (0.4-2.0) mmol/L Calcium 8.6 (8.5-10.1) mg/dl Magnesium 1.6 L (1.8-2.4) mg/dl Total Bilirubin 0.5 (0.2-1) mg/dl Direct Bilirubin 0.1 (0-0.2) mg/dl AST 9 L (15-37) U/L ALT 8 L (12-78) U/L Alkaline Phosphatase 75 (45-117) U/L Troponin I < 0.015 (0-0.045) ng/ml Total Protein 6.5 (6.4-8.2) gm/dl Albumin 3.0 L (3.4-5.0) gm/dl Lipase 29 L (73-393) U/L Urine Color Dark Yellow Urine Appearance Clear (Clear) Urine pH 5.0 (4.5-7.5) Ur Specific [place] 1.020 (1.000-1.030) Urine Protein Negative (Negative) Urine Glucose (UA) Negative (Negative) Urine Ketones Trace H (Negative) Urine Blood Negative (Negative) Urine Nitrite Negative (Negative) Urine Bilirubin Negative (Negative) Urine Urobilinogen Negative (Negative) Ur Leukocyte Esterase Negative (Negative) COVID-19 PCR (Negative) SARS-CoV-2 RNA (RT-PCR) 05/01/20 05/01/20 05/01/20 Range/Units 05:25 05:40 05:40 WBC (4.8-10.8) K/uL RBC (4.2-5.4) M/uL Hgb (12.0-16.0) g/dL Hct (37-47) % MCV (80-100) fL MCH (25-34) pg MCHC (32-36) g/dL RDW Std Deviation (36.4-46.3) fL RDW Coeff of [place] (11.5-14.5) % Plt Count (130-400) K/uL MPV (7.4-10.4) fL Immature Gran % (Auto) % Neut % (Auto) % Lymph % (Auto) % [place] % (Auto) % Eos % (Auto) % Baso % (Auto) % Neut # (Auto) (1.4-6.5) K/uL Lymph # (Auto) (1.2-3.4) K/uL [place] # (Auto) (0.11-0.59) K/uL Eos # (Auto) (0-0.5) K/uL Baso # (Auto) (0-0.2) K/uL Immature Gran # (Auto) (0.00-0.02) K/uL PT 11.8 (9.0-12.0) Seconds INR 1.1 (0.9-1.1) Sodium (136-145) mmol/L Potassium (3.5-5.1) mmol/L Chloride (98-107) mmol/L Carbon Dioxide (21-32) mmol/L Anion Gap (3-11) BUN (7-18) mg/dl Creatinine (0.6-1.2) mg/dl Est Cr Clr Drug Dosing ml/min Est GFR ( Amer) Est GFR (Non-Af Amer) BUN/Creatinine Ratio (10-20) Glucose (70-99) mg/dl Lactate (0.4-2.0) mmol/L Calcium (8.5-10.1) mg/dl Magnesium (1.8-2.4) mg/dl Total Bilirubin (0.2-1) mg/dl Direct Bilirubin (0-0.2) mg/dl AST (15-37) U/L ALT (12-78) U/L Alkaline Phosphatase (45-117) U/L Troponin I (0-0.045) ng/ml Total Protein (6.4-8.2) gm/dl Albumin (3.4-5.0) gm/dl Lipase (73-393) U/L Urine Color Urine Appearance (Clear) Urine pH (4.5-7.5) Ur Specific [place] (1.000-1.030) Urine Protein (Negative) Urine Glucose (UA) (Negative) Urine Ketones (Negative) Urine Blood (Negative) Urine Nitrite (Negative) Urine Bilirubin (Negative) Urine Urobilinogen (Negative) Ur Leukocyte Esterase (Negative) COVID-19 PCR NEGATIVE (Negative) SARS-CoV-2 RNA (RT-PCR) Cancelled 05/01/20 Range/Units 06:03 WBC (4.8-10.8) K/uL RBC (4.2-5.4) M/uL Hgb (12.0-16.0) g/dL Hct (37-47) % MCV (80-100) fL MCH (25-34) pg MCHC (32-36) g/dL RDW Std Deviation (36.4-46.3) fL RDW Coeff of [place] (11.5-14.5) % Plt Count (130-400) K/uL MPV (7.4-10.4) fL Immature Gran % (Auto) % Neut % (Auto) % Lymph % (Auto) % [place] % (Auto) % Eos % (Auto) % Baso % (Auto) % Neut # (Auto) (1.4-6.5) K/uL Lymph # (Auto) (1.2-3.4) K/uL [place] # (Auto) (0.11-0.59) K/uL Eos # (Auto) (0-0.5) K/uL Baso # (Auto) (0-0.2) K/uL Immature Gran # (Auto) (0.00-0.02) K/uL PT (9.0-12.0) Seconds INR (0.9-1.1) Sodium (136-145) mmol/L Potassium (3.5-5.1) mmol/L Chloride (98-107) mmol/L Carbon Dioxide (21-32) mmol/L Anion Gap (3-11) BUN (7-18) mg/dl Creatinine (0.6-1.2) mg/dl Est Cr Clr Drug Dosing ml/min Est GFR ( Amer) Est GFR (Non-Af Amer) BUN/Creatinine Ratio (10-20) Glucose (70-99) mg/dl Lactate 1.2 (0.4-2.0) mmol/L Calcium (8.5-10.1) mg/dl Magnesium (1.8-2.4) mg/dl Total Bilirubin (0.2-1) mg/dl Direct Bilirubin (0-0.2) mg/dl AST (15-37) U/L ALT (12-78) U/L Alkaline Phosphatase (45-117) U/L Troponin I (0-0.045) ng/ml Total Protein (6.4-8.2) gm/dl Albumin (3.4-5.0) gm/dl Lipase (73-393) U/L Urine Color Urine Appearance (Clear) Urine pH (4.5-7.5) Ur Specific [place] (1.000-1.030) Urine Protein (Negative) Urine Glucose (UA) (Negative) Urine Ketones (Negative) Urine Blood (Negative) Urine Nitrite (Negative) Urine Bilirubin (Negative) Urine Urobilinogen (Negative) Ur Leukocyte Esterase (Negative) COVID-19 PCR (Negative) SARS-CoV-2 RNA (RT-PCR) Administered Medications Amantadine HCl (Symmetrel) 100 mg PO BID [facility]EDEE Stop: 05/31/20 10:33 Last Admin: 05/01/20 21:07 Dose: 100 mg Documented by: [id number] Admin: 05/01/20 12:40 Dose: 100 mg Documented by: [id number] Aspirin (Ecotrin Ectab) 81 mg PO DAILY [facility] Stop: 05/31/20 10:33 Last Admin: 05/01/20 12:41 Dose: 81 mg Documented by: [id number] Azathioprine (Imuran) 50 mg PO DAILY [facility] Stop: 05/31/20 10:33 Last Admin: 05/01/20 12:41 Dose: 50 mg Documented by: [id number] Carbidopa/Levodopa (Sinemet Cr 50/200mg) 1 tab PO HS [facility] Stop: 05/31/20 20:59 Last Admin: 05/01/20 21:07 Dose: 1 tab Documented by: [id number] Carbidopa/Levodopa (Sinemet 25/100 Mg) 2 tab PO 0830,1130,1630,2030 [facility] Stop: 05/31/20 16:29 Last Admin: 05/01/20 20:27 Dose: 2 tab Documented by: [id number] Admin: 05/01/20 16:52 Dose: 2 tab Documented by: [id number] Entacapone (Comtan) 400 mg PO 0830,1130,1630,2030 [facility] Stop: 05/31/20 16:29 Last Admin: 05/01/20 20:28 Dose: 400 mg Documented by: [id number] Admin: 05/01/20 17:02 Dose: 400 mg Documented by: [id number] Sodium Chloride (Nss 1000ml) 1,000 mls @ 100 mls/hr IV .Q10H [facility] Stop: 05/31/20 10:33 Last Infusion: 05/01/20 22:24 Dose: 100 mls/hr Documented by: [id number] Admin: 05/01/20 19:59 Dose: 100 mls/hr Documented by: [id number] Infusion: 05/01/20 19:59 Dose: 100 mls/hr Documented by: [id number] Infusion: 05/01/20 14:00 Dose: 100 mls/hr Documented by: [id number] Admin: 05/01/20 12:41 Dose: 125 mls/hr Documented by: [id number] Piperacillin Sod/Tazobactam (Sod 3.375 gm/ Dextrose) 115 mls @ 28.75 mls/hr IV Q8H [facility]; Protocol Stop: 05/11/20 11:59 Last Admin: 05/01/20 20:25 Dose: 28.8 mls/hr Documented by: [id number] Infusion: 05/01/20 16:51 Dose: 0 mls/hr Documented by: [id number] Admin: 05/01/20 12:42 Dose: 28.8 mls/hr Documented by: [id number] Insulin Aspart (Novolog Flexpen) 0 units SC ACHS [facility] Stop: 05/31/20 17:59 Last Admin: 05/01/20 21:26 Dose: Not Given Documented by: [id number] Cosigned by: [id number] Admin: 05/01/20 19:03 Dose: Not Given Documented by: [id number] Cosigned by: [id number] Ioversol (Optiray 320 100ml) 94 ml IV ONCE PRN PRN Reason: Interaction Checking Stop: 05/05/20 06:11 Last Admin: 05/01/20 06:12 Dose: 94 ml Documented by: [id number] Miscellaneous (Order Awaiting Action) 1 ea N/A QS [facility] Stop: 05/31/20 15:59 Last Admin: 05/01/20 15:52 Dose: Not Given Documented by: [id number] Multivitamins (Multivitamin Tab) 1 tab PO DAILY [facility] Stop: 05/31/20 10:33 Last Admin: 05/01/20 12:41 Dose: 1 tab Documented by: [id number] Discontinued Medications Sodium Chloride (Nss 1000ml) 2,000 mls @ 999 mls/hr IV .Q2H1M ONE Stop: 05/01/20 06:33 Last Infusion: 05/01/20 06:46 Dose: 0 mls/hr Documented by: [id number] Admin: 05/01/20 05:00 Dose: 999 mls/hr Documented by: [id number] Piperacillin Sod/Tazobactam Sod (Zosyn) 4.5 gm in 120 mls @ 240 mls/hr IV NOW ONE Stop: 05/01/20 07:31 Last Infusion: 05/01/20 07:51 Dose: 0 mls/hr Documented by: [id number] Admin: 05/01/20 07:10 Dose: 240 mls/hr Documented by: [id number] Sodium Chloride (Nss 1000ml) 1,000 mls @ 125 mls/hr IV .Q8H [facility] Stop: 05/31/20 07:29 Last Infusion: 05/01/20 12:30 Dose: 0 mls/hr Documented by: [id number] Admin: 05/01/20 07:50 Dose: 125 mls/hr Documented by: [id number] Magnesium Sulfate/Dextrose (Magnesium Sulfate / D5w) 1 gm in 100 mls @ 50 mls/hr IV ONE ONE Stop: 05/01/20 21:44 Last Infusion: 05/01/20 22:24 Dose: 0 mls/hr Documented by: [id number] Admin: 05/01/20 19:59 Dose: 50 mls/hr Documented by: [id number] Insulin Aspart (Novolog Flexpen) 0 units SC ACHS [facility] Stop: 05/31/20 11:29 Last Admin: 05/01/20 15:14 Dose: Not Given Documented by: [id number] Cosigned by: [id number] Insulin Aspart (Novolog Flexpen) 0 units SC Q6 [facility] Stop: 05/31/20 11:59 Last Admin: 05/01/20 13:59 Dose: Not Given Documented by: [id number] Cosigned by: [id number] Miscellaneous (Order Awaiting Action) 1 ea N/A QS [facility] Stop: 05/31/20 15:59 Last Admin: 05/01/20 15:51 Dose: Not Given Documented by: [id number] Morphine Sulfate (Morphine Sulfate) 2 mg IV ONE ONE Stop: 05/01/20 14:01 Last Admin: 05/01/20 15:42 Dose: Not Given Documented by: [id number] Discharge Plan Visit Data *Final* Discharge Date/Time: 05/01/20 10:01 Chief Complaint: Illness Stated Complaint: Illness ED Provider: Jose C Cedillo Discharge Problem: Sepsis, Altered mental status, Colitis Patient Disposition: Admitted As Inpatient Discharge Instructions Interventions: ED Discharge Assessment Last Done: 05/01/20 10:01 Discharge Problem: Sepsis Qualifiers: Sepsis type: sepsis due to unspecified organism Sepsis acute organ dysfunction status: with acute organ dysfunction Severe sepsis acute organ dysfunction type: encephalopathy Severe sepsis shock status: without septic shock Qualified Code(s): A41.9 - Sepsis, unspecified organism Altered mental status Qualifiers: Altered mental status type: disorientation Qualified Code(s): R41.0 - Disorientation, unspecified
[2020-05-01 05:02] LABS: Appearance Urine Clear (Clear); Blood Urine Negative (Negative); Color Urine Dark Yellow; Glucose Urine UA Negative (Negative); Ketones Urine Trace (Negative); Leukocyte Esterase Urine Negative (Negative); Nitrite Urine Negative (Negative); Protein Urine Negative (Negative); Urobilinogen Urine Negative (Negative)
[2020-05-01 05:10] LABS: Bilirubin Urine Negative (Negative); Ictotest Urine Negative (Negative)
[2020-05-01 05:39] LABS: Basophils # (auto) 0.05 K/uL (0-0.2); Basophils % (auto) 0.5 %; Eosinophils % (auto) 1.8 %; Hematocrit (blood only) 34.1 % (37-47); Hemoglobin 11.3 g/dL (12.0-16.0); Immature Granulocytes # (auto) 0.02 K/uL (0.00-0.02); Immature Granulocytes % (auto) 0.2 %; Lymphocytes # (auto) 0.92 K/uL (1.2-3.4); Lymphocytes % (auto) 8.4 %; Mean Corpuscular Hemoglobin 31.6 pg (25-34); Mean Corpuscular Hgb Conc 33.1 g/dL (32-36); Mean Corpuscular Volume 95.3 fL (80-100); Mean Platelet Volume 9.7 fL (7.4-10.4); Monocytes # (auto) 0.81 K/uL (0.11-0.59); Monocytes % (auto) 7.4 %; Neutrophils # (auto) 8.97 K/uL (1.4-6.5); Neutrophils % (auto) 81.7 %; Platelet Count 380 K/uL (130-400); RDW Coefficient of Variation 14.1 % (11.5-14.5); RDW Standard Deviation 49.2 fL (36.4-46.3); Red Blood Count 3.58 M/uL (4.2-5.4); White Blood Count 10.97 K/uL (4.8-10.8)
[2020-05-01 05:50] LABS: INR 1.1 (0.9-1.1); Prothrombin Time 11.8 Seconds (9.0-12.0)
[2020-05-01 05:56] LABS: Alanine Aminotransferase 8 U/L (12-78); Aspartate Aminotransferase 9 U/L (15-37); Bilirubin Direct 0.1 mg/dl (0-0.2); Blood Urea Nitrogen 12 mg/dl (7-18); Calcium 8.6 mg/dl (8.5-10.1); Carbon Dioxide 21 mmol/L (21-32); Chloride 108 mmol/L (98-107); Creatinine Clr Calc Pharmacy 80.8 ml/min; Est GFR (African American) 97.5; Est GFR (Non-African American) 84.1; Glucose 106 mg/dl (70-99); Lipase 29 U/L (73-393); Magnesium 1.6 mg/dl (1.8-2.4); Potassium 3.8 mmol/L (3.5-5.1); Sodium 139 mmol/L (136-145)
[2020-05-01 06:01] LABS: Alkaline Phosphatase 75 U/L (45-117); Bilirubin,Total 0.5 mg/dl (0.2-1); Total Protein 6.5 gm/dl (6.4-8.2); Troponin I < 0.015 ng/ml (0-0.045)
[2020-05-01] MEDS ORDERED: IOVERSOL 100ml IV PRN (06:12)
[2020-05-01] MEDS ORDERED: PIPERACILLIN/TAZOBACTAM 4.5 GM/120 ML BAG IV ONE (07:02)
[2020-05-01] MEDS ORDERED: PIPERACILL/TAZOBAC CONSULT ACTIVE PRN ×2 (07:02→10:34)
[2020-05-01] MEDS ORDERED: SODIUM CHLORIDE 0.9% 1000ML 1,000 ML IV SCH (07:30)
--- NOTE | 2020-05-01 08:04 | CT Scan Report ---
CT OF THE ABDOMEN AND PELVIS WITH CONTRAST CLINICAL HISTORY: fever unknown source COMPARISON STUDY: CT of the abdomen and pelvis February 20, 2017. TECHNIQUE: Following IV administration of 93 mL of Optiray-320, axial images of the abdomen and pelvi s were obtained from the lung bases to the proximal femurs. Images were reviewed in the axial, sagitt al, and coronal planes. IV contrast was administered without complication. Automated exposure contro l was utilized for the study. A dose lowering technique was utilized adhering to the principles of A GAYLE. CT DOSE: 932.38 mGycm FINDINGS: A small hiatal hernia is noted. There is mild cardiomegaly. No pneumatosis, free air or por kelvin venous gas is present. Mild biliary ductal dilatation is noted. This is slightly increased since exam of February 20, 2017. Pancreatic glandular atrophy is noted. The gallbladder is mildly distended. Ther e is no adjacent infiltration. Exam is optimized by motion artifact. There is no hydronephrosis. A pr obable 2 mm calculus within the lower pole of the left kidney is noted. There is no evidence for a jet wel obstruction. There is mild wall thickening and pericolonic infiltration of the proximal descendin g colon. There is no free air or abscess. No lymphadenopathy is present. No suspicious osseous lesion s are noted. IMPRESSION: 1. Mild wall thickening of the colonic infiltration of the proximal descending colon which represents a nonspecific colitis which could be infectious, inflammatory or ischemic in etiology. A nonemergent colonoscopy if not recently performed, is recommended once symptoms resolve to exclude the less like ly possibility of an underlying neoplasm. 2. Mild biliary ductal dilatation which could be correlated with liver function tests. 3. Small hiatal hernia. ACT 112: Negative or not required by law. Electronically signed by: Cyril Ortega M.D. 05/01/2020 8:03 AM
--- NOTE | 2020-05-01 08:06 | CT Scan Report ---
CT OF THE HEAD WITHOUT CONTRAST CLINICAL HISTORY: fall, confusion COMPARISON STUDY: Head CT April 21, 2020. CT DOSE: 1577.26 mGycm TECHNIQUE: Helical axial images of the head were obtained without IV contrast. Automated exposure con trol was utilized for the study. A dose lowering technique was utilized adhering to the principles o f ALARA. FINDINGS: No acute intracranial hemorrhage, midline shift or mass effect is present. The ventricular system is stable. The basilar cisterns are patent. No extra-axial collections are present. There are no findings to suggest acute dural sinus thrombosis or acute territorial infarct. No significant calv arial abnormalities are present. Visualized portions of the sinuses and mastoid air cells are clear. This exam is mildly compromised by motion artifact. IMPRESSION: No acute intracranial findings. ACT 112: Negative or not required by law. Electronically signed by: Cyril Ortega M.D. 05/01/2020 8:05 AM
--- NOTE | 2020-05-01 08:30 | XRay Report ---
XR chest 1V portable CLINICAL HISTORY: sepsis COMPARISON STUDY: Chest radiograph April 21, 2020. FINDINGS: Lung volumes are normal. Lungs are clear. There is no pneumothorax or pleural effusion. Car diac size is stable. Mediastinal contours are normal. There is no evidence for pulmonary edema. IMPRESSION: No acute cardiopulmonary findings. No change in appearance of the chest. ACT 112: Negative or not required by law. Electronically signed by: Cyril Ortega M.D. 05/01/2020 8:29 AM
--- NOTE | 2020-05-01 08:50 | History & Physical Report ---
Date of Service May 01, 2020 Assessment & Plan (1) Sepsis: -Admit to [facility] for observation -CT abdomen/pelvis completed showing nonspecific colitis, concern for possible cholecystitis-Check US gallbladder as patient has had a Pseudomonas bacteremia on last admission however Pseudomonas like unlikely urinary pathogen, more likely GI source -Patient with + tenderness with deep palpation in RUQ specifically, however patient is complaining of generalized pain throughout with palpation of the abdomen, + multiple episodes of vomiting on Sunday, poor appetite. Possible that taking tramadol and Tylenol alternating in the past 4 days has had fever/dulled abdominal symptoms -Patient has been taking p.o. Cipro, still has 4 days left since discharge on 04/26, hold medication and continue IV Zosyn -Tmax 38.1 on arrival, WBC = 10.97, lactic acid =1.2 -AST = 9, ALT = 8 -N.p.o. -Consider general surgery consultation pending ultrasound results -Continue NSS while n.p.o. -The patient has been tested for COVID-19, currently in process, continue airborne precautions/contact precautions until ruled out (2) Parkinson disease: -History of such, continue amantadine 100 mg BID, carbidopa-levodopa BID (3) Diabetes mellitus: -ISS with Accu-Cheks AC at bedtime -Holding metformin -Last A1c on 04/14 was 6.6 -NSS for now - if no plans for surgery allow DM diet (4) Fall: -PT/OT consults -Fall precautions with Parkinsons - patient is fairly ambulatory with walker at baseline (5) Dementia: - mild, intermittent confusion but the patient is alert and oriented x3 per daughter (6) Ambulatory dysfunction: -As above (7) Hypertension: -BP 132/86 on admission, not on antihypertensives (8) Hypomagnesemia: - Mag 1.6 on admission, will replace with IV (9) DVT prophylaxis: - teds, no chemical prophylaxis in the setting of possible surgery CODE: DNR/DNI Dispo: From home, likely to remain in the hospital x 1-2 days History of Present Illness Primary Care Provider: Kojo Cohen This is a n 80 yo F with PMHx of DM II, HTN, Parkinsons disease, mild dementia, ambulatory dysfunction, who was recently admitted to our facility on 2 separate occasions: 04/21- 04/26 for sepsis and Pseudomonas bacteremia that was thought secondary to UTI, and metabolic encephalopathy, and prior to that 03/17- 04/15 for sepsis due to pneumonia and E. coli UTI causing metabolic encephalopathy. Today the patient represents for fever, cough, generalized malaise, poor appetite. She provides history but is difficult to understand due to poorly fitting dentures and fatigue. She has been taking Cipro as directed at home, but has not yet finished the prescription. She lives at home with her daughter and snowshoe, uses a rolling walker at baseline, typically is able to participate in ADLs but has been unable to do so since discharge on 04/26. I called and discussed the patient's case with her daughter, Pili. Pt daughter reports having body flailing intermittently over the past 4 days, that she fell out of bed and hit her arm and the left side of her head this morning from laying in bed when she was trying to reach for a cup of water. Had waxing and waning confusion since Sunday. The patient was vomiting on Sunday several times and since then has had poor appetite. Due to generalized body aches and pains, has been alternating tramadol and tylenol. Bowels have been regular, no urinary complaints, increased frequency or incontinence. The daughter also reports that she has these episodes of flailing her arms and that at times seems very confused and has dilated pupils after these episodes. She denies any previous history of seizure disorder, and is not taking any medication for such. Daughter also reports strong family history of bipolar disease. The patient has occasional visual hallucinations which are nonthreatening, normally animals not people, and that she seems depressed since she was discharged last time. He is concerned for her safety with her falling out of bed and reports that she possibly would be better suited in short-term rehab for PT/OT. Allergies Allergy/AdvReac Type Severity Reaction Status Date / Time No Known Allergies Allergy Verified 05/01/20 04:55 Home Medications Home Medications Medication Instructions Recorded Confirmed Type acetaminophen [Tylenol Extra 500 mg PO QID PRN 07/14/18 05/01/20 History Strength] amantadine HCl 100 mg PO BID 07/14/18 05/01/20 History aspirin [Aspir-81] 81 mg PO DAILY 07/14/18 05/01/20 History azathioprine [Imuran] 50 mg PO DAILY 07/14/18 05/01/20 History cyanocobalamin (vitamin B-12) 1,000 mcg IM MONTHLY 07/14/18 05/01/20 History tramadol [Ultram] 50 mg PO Q6 PRN 07/14/18 05/01/20 History carbidopa-levodopa 1 tab PO HS 07/18/19 05/01/20 History dvbulqyzw-lgqoombr-qdgmzynkov 2 tab PO QID 04/13/20 05/01/20 History clobetasol 1 applic TOPICAL BID 04/13/20 05/01/20 History hydrocortisone 1 applic TOPICAL BID PRN 04/13/20 05/01/20 History metformin 1,000 mg PO BID 04/13/20 05/01/20 History multivitamin 1 tab PO DAILY 04/13/20 05/01/20 History nystatin-triamcinolone 1 applic TOPICAL BID PRN 04/13/20 05/01/20 History ciprofloxacin HCl [Cipro] 500 mg PO BID #18 tab 04/26/20 05/01/20 Rx Past Med/Surg History Medical History Diabetes Hypertension (Chronic) Paroxysmal atrial fibrillation QT prolongation Urinary tract infection Family History Other Aneurysm Stroke Social History Preferred Language: Slovak Communication Ability: Effective 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 Beliefs That Will Affect Care: None marital status: / Current Living Situation: Family Current Living Situation Comment: DGT Other Information That Helps Us Care for You: No Feels Safe at Home: Yes Safety Concerns: Feels Safe At This Time Smoking Status: Never smoker Hx Alcohol Use: No Hx Substance Use: No Review of Systems Review of Systems: Constitutional: + Fever, sweats and chills Eyes: No diplopia, no worsening or blurred vision ENT: normal hearing, no trouble swallowing Respiratory: + Cough, no sputum, no dyspnea at rest or on exertion Cardiovascular: No chest pain, tightness or palpitations Abdomen: See HPI, no pain, nausea, vomiting, diarrhea or constipation Musculoskeletal: No joint pain, calf pain, swelling Neurologic: + Generalized weakness, no numbness/tingling, + balance problems, uses walker at baseline Psychiatric: See HPI Skin: No rash or itch Physical Exam Physical Exam: General: awake, alert, no apparent distress, Head: Normocephalic, + ecchymosis developing over Left supraorbital ridge, + erythematous abraison anterior to the Left ear ENT: PERRL, EOMI, + purulent discharge in right eye pooling at tear duct, no pharyngeal exudate, mucous membranes moist Chest: Clear to auscultation, on room air, no adventitious breath sounds Cardiac: Regular rate and rhythm, + soft systolic murmur, no JVD, normal peripheral pulses, good capillary refill Abdominal: NABS x 4 quadrants, soft,+ generalized tenderness, + tender to palpat ion in RUQ and RLQ with deep palpation, no rebound, guarding Extremities: Normal inspection, no peripheral edema or erythema, calfs nontender to palpation Psych: Flat mood and affect Neuro: AAO x 3, no gross motor deficits, speech is clear, no peripheral sensory deficits Skin: no rash or erythema Results & Data Results & Data ([facility]) Vital Signs (Past 12 Hours) Vital Signs Temp Pulse Pulse Resp BP BP Pulse Ox 05/01/20 07:48 98 H 24 132/86 95 05/01/20 06:46 36.6 C 88 22 126/80 95 05/01/20 06:00 92 H 23 95/70 L 05/01/20 05:30 96 H 24 98/51 L 05/01/20 05:00 98 H 25 H 106/50 L 95 05/01/20 04:58 38.1 C H 107 H 18 128/[address] OF THE ABDOMEN AND PELVIS WITH CONTRAST CLINICAL HISTORY: fever unknown source COMPARISON STUDY: CT of the abdomen and pelvis February 20, 2017. TECHNIQUE: Following IV administration of 93 mL of Optiray-320, axial images of the abdomen and pelvis were obtained from the lung bases to the proximal femurs. Images were reviewed in the axial, sagittal, and coronal planes. IV contrast was administered without complication. Automated exposure control was utilized for the study. A dose lowering technique was utilized adhering to the principles of ALARA. CT DOSE: 932.38 mGycm FINDINGS: A small hiatal hernia is noted. There is mild cardiomegaly. No pneumatosis, free air or portal venous gas is present. Mild biliary ductal dilatation is noted. This is slightly increased since exam of February 20, 2017. Pancreatic glandular atrophy is noted. The gallbladder is mildly distended. There is no adjacent infiltration. Exam is optimized by motion artifact. There is no hydronephrosis. A probable 2 mm calculus within the lower pole of the left kidney is noted. There is no evidence for a bowel obstruction. There is mild wall thickening and pericolonic infiltration of the proximal descending colon. There is no free air or abscess. No lymphadenopathy is present. No suspicious osseous lesions are noted. IMPRESSION: 1. Mild wall thickening of the colonic infiltration of the proximal descending colon which represents a nonspecific colitis which could be infectious, inflammatory or ischemic in etiology. A nonemergent colonoscopy if not recently performed, is recommended once symptoms resolve to exclude the less likely possibility of an underlying neoplasm. 2. Mild biliary ductal dilatation which could be correlated with liver function tests. 3. Small hiatal hernia. ACT 112: Negative or not required by law. CT OF THE HEAD WITHOUT CONTRAST CLINICAL HISTORY: fall, confusion COMPARISON STUDY: Head CT April 21, 2020. CT DOSE: 1577.26 mGycm TECHNIQUE: Helical axial images of the head were obtained without IV contrast. Automated exposure control was utilized for the study. A dose lowering technique was utilized adhering to the principles of ALARA. FINDINGS: No acute intracranial hemorrhage, midline shift or mass effect is present. The ventricular system is stable. The basilar cisterns are patent. No extra-axial collections are present. There are no findings to suggest acute dural sinus thrombosis or acute territorial infarct. No significant calvarial abnormalities are present. Visualized portions of the sinuses and mastoid air cells are clear. This exam is mildly compromised by motion artifact. IMPRESSION: No acute intracranial findings. XR chest 1V portable CLINICAL HISTORY: sepsis COMPARISON STUDY: Chest radiograph April 21, 2020. FINDINGS: Lung volumes are normal. Lungs are clear. There is no pneumothorax or pleural effusion. Cardiac size is stable. Mediastinal contours are normal. There is no evidence for pulmonary edema. IMPRESSION: No acute cardiopulmonary findings. No change in appearance of the chest. ACT 112: Negative or not required by law. ECG Additional Comments: 01-MAY-2020 04:39:29 [facility]-EDSTAT ROUTINE RETRIEVAL Poor data quality, interpretation may be adversely affected Sinus tachycardia Left axis deviation Pulmonary disease pattern Moderate voltage criteria for LVH, may be normal variant Abnormal ECG When compared with ECG of 21-APR-2020 12:21, No significant change was found 25mm/s 10mm/mV 150Hz 9.0.9 12SL 241 NORMA: 10 Referred by: REFERRED SELF Unconfirmed Vent. rate 106 BPM WV interval 146 ms QRS duration 84 ms QT/QTc 354/470 ms P-R-T axes 84 -37 12 Code Status & VTE Plan Code Status DNR/DNI-discussed with the patient's daughterPili VTE Prophylaxis Plan VTE Prophylaxis will be ordered: No Supervising Physician Co-Signing Physician Notes PA Supervision Note: I personally saw and examined the patient. I verified all basurto points and agree with ELYSSA Herzog with the following exceptions and/or additions: Patient known to me from recent hospital admission, returns with fever and altered mental status again. She has been taking the Cipro as an outpatient. The daughter reports she was having thrashing of her arms and legs, but was awake and talking during these episodes and they would last almost all day for the last 3 days. Suspect rigors as opposed to seizure activity. Patient was given Ativan on the way in today by EMS for agitation and she was a bit sedated when I saw her, mildly confused. Later in the afternoon, she was more alert and awake as per nursing staff. History and ROS reviewed Vitals reviewed Gen: Alert but confused, overweight, NAD HEENT: Anicteric sclerae, EOMI CV: RRR no mgr nl S1S2 Pulm: CTAB no wcr Abd: +BS soft NT ND no masses or hernias Ext: No edema, 2+ DP pulses Skin: No rashes, warm/dry Neuro: Full strength throughout Laboratory values and radiologic images reviewed 80-year-old female with history as above, here with recurrent fever for the third time in the last 2 to 3 weeks With history of UTI, Pseudomonas bacteremia of unknown source, suspect possible biliary tract or GI infection? Does have colitis on CT -Check HIDA scan -Keep n.p.o. until after HIDA scan and then advance diet as tolerated -Follow LFTs -Follow CBC, blood cultures -Continue Zosyn empirically to cover for GI source No evidence of pneumonia on chest x-ray, urinalysis without infection PG Care Time/CCT Total # of Minutes Spent Total Time Spent with Patient: Total time spent is greater than 50% in coordination of care (as documented) at patient's floor/unit and/or counseling patient: Coding Level of Care Code 41740 OBS Care - Level 3 Diagnoses Sepsis A41.9; R65.20; G93.40 Sepsis acute organ dysfunction status: with acute organ dysfunction Sepsis type: sepsis due to unspecified organism Severe sepsis acute organ dysfunction type: encephalopathy Severe sepsis shock status: without septic shock Parkinson disease G20 Diabetes mellitus E11.9 Fall W19.XXXA Encounter type: initial encounter Dementia F03.91 Dementia behavioral disturbance: with behavioral disturbance Dementia type: unspecified type Ambulatory dysfunction R26.2 Hypertension I10 Hypertension type: essential hypertension Hypomagnesemia E83.42 DVT prophylaxis Z29.9 (1) Dementia Dementia behavioral disturbance: with behavioral disturbance Dementia type: unspecified type Qualified Code(s): F03.91 - Unspecified dementia with behavioral disturbance (2) Sepsis Sepsis acute organ dysfunction status: with acute organ dysfunction Sepsis type: sepsis due to unspecified organism Severe sepsis acute organ dysfunction type: encephalopathy Severe sepsis shock status: without septic shock Qualified Code(s): A41.9 - Sepsis, unspecified organism; R65.20 - Severe sepsis without septic shock; G93.40 - Encephalopathy, unspecified (3) Hypertension Hypertension type: essential hypertension Qualified Code(s): I10 - Essential (primary) hypertension (4) Fall Encounter type: initial encounter Qualified Code(s): W19.XXXA - Unspecified fall, initial encounter
[2020-05-01] MEDS ORDERED: GLUCAGON FOR INJ 1 MG VIAL SQ PRN (10:34)
[2020-05-01] MEDS ORDERED: NYSTATIN/TRIAMCIN CR 15 GM TUBE EXT PRN (10:34)
[2020-05-01] MEDS ORDERED: CARBOHYDRATES FOR HYPOGLYCEMIA PO PRN (10:34)
[2020-05-01] MEDS ORDERED: GLUCOSE 10 TABS/TUBE PO PRN (10:34)
[2020-05-01] MEDS ORDERED: DEXTROSE 50% 50 ML SYRINGE IV PRN (10:34)
[2020-05-01] MEDS ORDERED: TRAMADOL HCL 50 MG TABLET PO PRN (10:34)
[2020-05-01] MEDS ORDERED: HYDROCORTISONE 2.5% CR 30 GM TUBE EXT PRN (10:34)
[2020-05-01] MEDS ORDERED: GLUCOSE 40% GEL 15 GM TUBE PO PRN (10:34)
[2020-05-01] MEDS ORDERED: INSULIN ASPART 100 UNITS/ML 3 ML PEN SC SCH ×2 (11:30→12:00)
--- NOTE | 2020-05-01 11:57 | Ultrasound Report ---
US gallbladder CLINICAL HISTORY: assess for cholecystitis COMPARISON STUDY: CT of the abdomen and pelvis May 01, 2020. FINDINGS: Hepatic echogenicity is increased. No hepatic lesions are present. There is mild biliary du ctal dilatation. The common bile duct measures 1.1 cm in caliber. No common bile duct calculi are huan ntified. Gallbladder is distended. There are no gallstones. No gallbladder wall thickening is present . No sonographic Garcia sign was reported. Pancreatic body is normal. Head and tail are partially obs cured. There is no right hydronephrosis. IMPRESSION: 1. No gallstones. No gallbladder wall thickening. Moderate gallbladder distention. 2. Mild biliary ductal dilatation which could be correlated with liver function tests. 3. Fatty infiltration of the liver. ACT 112: Negative or not required by law. Electronically signed by: Cyril Ortega M.D. 05/01/2020 11:56 AM
[2020-05-01] MEDS ORDERED: Nursing to Pharmacy Communication SCH ×2 (12:15→17:30)
[2020-05-01] MEDS: AMANTADINE HCL 100 MG CAPSULE PO SCH ×2 (12:40→21:07)
[2020-05-01] MEDS: MULTIVITAMIN TAB PO SCH (12:41)
[2020-05-01] MEDS: SODIUM CHLORIDE 0.9% 1000ML 1,000 ML IV SCH ×2 (12:41→19:59)
[2020-05-01] MEDS: ASPIRIN 81 MG ECTAB PO SCH (12:41)
[2020-05-01] MEDS: azaTHIOprine 50 MG TAB PO SCH (12:41)
[2020-05-01] MEDS: PIPERACILLIN/TAZOBACTAM 3.375 GM in DEXTROSE 5% 100 ML IV SCH ×2 (12:42→20:25)
--- NOTE | 2020-05-01 13:54 | Surgery Consultation ---
Date of Consultation May 01, 2020 Assessment & Plan (1) Altered mental status: 80 yr old woman with multiple other medical issues and now third episode of sepsis in short time interval. Based on imaging and lack of pain in RUQ on exam, I think cholecystitis is unlikely to be the source. CT scan does show nonspecific colitis of proximal descending colon and she is tender in the LLQ on exam. Agree with workup (blood and urine cultures) and antibiotics. If does not improve, could consider HIDA scan to rule out acalculous cholecystitis. Present on Admission?: Yes History of Present Illness Reason for Consultation: nausea and vomiting Requesting Physician: Denise Mchugh MD Attending Physician: Denise Mchugh MD History of Present Illness Pt is poor historian - history obtained mainly from the chart. This is patient's third admission in the last few months for sepsis. The first was from 03/17-04/15 for pneumonia/ E. coli UTI/ metabolic enchephalopathy; second 04/21-04/26 for Pseudomonas bacteremia felt to from UTI and now admitted again with septic signs- worsening confusion, fever, generalized malaise, poor appetite, vomiting on Sun. Has been trying tramadol and tylenol for generalized aches/ pains. Has been noticed to have more arm flailing and fell out of bed this morning. Currently, lives with daughter but overall condition has worsened during her last hospitalization and she has not been able to do her ADL's independently any longer. Currently, she does respond to questions, denies any abdominal pain at rest. By report, bowels have been functioning. Imaging to date has included a CT scan which shows no evidence of gallstones or wall thickening, GB is mildly distended (c/w fasting state). US RUQ shows mild biliary ductal dilation (but lft's are normal), no gallstones/ sludge, or wall thickening. Due the presence of pseudomonas in her last bacteremic episode and current vomiting with this episode, cholecystitis has been questioned. Allergies Allergy/AdvReac Type Severity Reaction Status Date / Time No Known Allergies Allergy Verified 05/01/20 04:55 Home Medications Home Medications Medication Instructions Recorded Confirmed Type acetaminophen [Tylenol Extra 500 mg PO QID PRN 07/14/18 05/01/20 History Strength] amantadine HCl 100 mg PO BID 07/14/18 05/01/20 History aspirin [Aspir-81] 81 mg PO DAILY 07/14/18 05/01/20 History azathioprine [Imuran] 50 mg PO DAILY 07/14/18 05/01/20 History cyanocobalamin (vitamin B-12) 1,000 mcg IM MONTHLY 07/14/18 05/01/20 History tramadol [Ultram] 50 mg PO Q6 PRN 07/14/18 05/01/20 History carbidopa-levodopa 1 tab PO HS 07/18/19 05/01/20 History hvmqqnlnq-zqiezmrg-ggwtoldibf 2 tab PO QID 04/13/20 05/01/20 History clobetasol 1 applic TOPICAL BID 04/13/20 05/01/20 History hydrocortisone 1 applic TOPICAL BID PRN 04/13/20 05/01/20 History metformin 1,000 mg PO BID 04/13/20 05/01/20 History multivitamin 1 tab PO DAILY 04/13/20 05/01/20 History nystatin-triamcinolone 1 applic TOPICAL BID PRN 04/13/20 05/01/20 History ciprofloxacin HCl [Cipro] 500 mg PO BID #18 tab 04/26/20 05/01/20 Rx Patient History Medical History Diabetes Hypertension (Chronic) Paroxysmal atrial fibrillation QT prolongation Urinary tract infection Family History Other Aneurysm Stroke Social History Preferred Language: [place] Citizen Communication Ability: Effective [employer]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 Beliefs That Will Affect Care: None marital status: / Current Living Situation: Family Current Living Situation Comment: DGT Other Information That Helps Us Care for You: No Feels Safe at Home: Yes Safety Concerns: Feels Safe At This Time Smoking Status: Never smoker Hx Alcohol Use: No Hx Substance Use: No Review of Systems Review of Systems: Unobtainable due to cognitive status Physical Exam Constitutional: no acute distress Eyes: + anicteric sclerae Respiratory: normal respiratory effort; no respiratory distress Cardiovascular: Rate/Rhythm: regular rate and regular rhythm Gastrointestinal (Abdomen): Inspection/Auscultation: abdomen normal to inspection and normal bowel sounds; abdomen not distended Percussion/Palpation: + abdomen tender and abdomen soft; no guarding mild in LLQ, none with deep palpation in epigastrium or RUQ reddened area around umbilicus measuring about 2 cm - no cellulitic changes Results & Data Vital Signs (Past 12 Hours) Vital Signs Temp Pulse Pulse Pulse Resp BP BP 05/01/20 10:41 36.7 C 88 18 135/76 05/01/20 09:39 86 20 124/75 05/01/20 07:48 98 H 24 132/86 05/01/20 06:46 36.6 C 88 22 126/80 05/01/20 06:00 92 H 23 95/70 L 05/01/20 05:30 96 H 24 98/51 L 05/01/20 05:00 98 H 25 H 106/50 L 05/01/20 04:58 38.1 C H 107 H 18 128/70 Pulse Ox 05/01/20 10:41 96 05/01/20 09:39 98 05/01/20 07:48 95 05/01/20 06:46 95 05/01/20 06:00 05/01/20 05:30 05/01/20 05:00 95 05/01/20 04:58 95 Laboratory Results LFT's normal Diagnostic Findings US gallbladder CLINICAL HISTORY: assess for cholecystitis COMPARISON STUDY: CT of the abdomen and pelvis May 01, 2020. FINDINGS: Hepatic echogenicity is increased. No hepatic lesions are present. There is mild biliary ductal dilatation. The common bile duct measures 1.1 cm in caliber. No common bile duct calculi are identified. Gallbladder is distended. There are no gallstones. No gallbladder wall thickening is present. No sonographic Garcia sign was reported. Pancreatic body is normal. Head and tail are partially obscured. There is no right hydronephrosis. IMPRESSION: 1. No gallstones. No gallbladder wall thickening. Moderate gallbladder distention. 2. Mild biliary ductal dilatation which could be correlated with liver function tests. 3. Fatty infiltration of the liver. CT OF THE ABDOMEN AND PELVIS WITH CONTRAST CLINICAL HISTORY: fever unknown source COMPARISON STUDY: CT of the abdomen and pelvis February 20, 2017. TECHNIQUE: Following IV administration of 93 mL of Optiray-320, axial images of the abdomen and pelvis were obtained from the lung bases to the proximal femurs. Images were reviewed in the axial, sagittal, and coronal planes. IV contrast was administered without complication. Automated exposure control was utilized for the study. A dose lowering technique was utilized adhering to the principles of ALARA. CT DOSE: 932.38 mGycm FINDINGS: A small hiatal hernia is noted. There is mild cardiomegaly. No pneumatosis, free air or portal venous gas is present. Mild biliary ductal dilatation is noted. This is slightly increased since exam of February 20, 2017. Pancreatic glandular atrophy is noted. The gallbladder is mildly distended. There is no adjacent infiltration. Exam is optimized by motion artifact. There is no hydronephrosis. A probable 2 mm calculus within the lower pole of the left kidney is noted. There is no evidence for a bowel obstruction. There is mild wall thickening and pericolonic infiltration of the proximal descending colon. There is no free air or abscess. No lymphadenopathy is present. No suspicious osseous lesions are noted. IMPRESSION: 1. Mild wall thickening of the colonic infiltration of the proximal descending colon which represents a nonspecific colitis which could be infectious, inflammatory or ischemic in etiology. A nonemergent colonoscopy if not recently performed, is recommended once symptoms resolve to exclude the less likely possibility of an underlying neoplasm. 2. Mild biliary ductal dilatation which could be correlated with liver function tests. 3. Small hiatal hernia. (1) Altered mental status Altered mental status type: disorientation Qualified Code(s): R41.0 - Disorientation, unspecified
[2020-05-01] MEDS ORDERED: MoRPHine SULFATE 2 MG/ML CARP IV ONE (14:00)
--- NOTE | 2020-05-01 15:32 | Nuclear Medicine Report ---
NUCLEAR MEDICINE HEPATOBILIARY SCAN CLINICAL HISTORY: Fever of unknown source. Evaluate for acute cholecystitis. COMPARISON: CT of the abdomen and pelvis and right upper quadrant ultrasound May 01, 2020. TECHNIQUE: 5.5 mCi of technetium 99m Choletec IV was injected at 2:40 PM on May 01, 2020. Immediat john following injection, imaging of the abdomen was carried out for 60 minutes in the anterior projec tion. FINDINGS: Hepatic uptake of radiotracer is prompt and homogeneous. Activity is identified within the common bile duct and small bowel at 10 minutes. Gallbladder activity is noted at 20 minutes. IMPRESSION: No evidence for acute cholecystitis. ACT 112: Negative or not required by law. Electronically signed by: Cyril Ortega M.D. 05/01/2020 3:31 PM
[2020-05-01] MEDS: CARBIDOPA/LEVODOPA 25/100MG TAB PO SCH ×2 (16:52→20:27)
[2020-05-01] MEDS: ENTACAPONE 200 MG TAB PO SCH ×2 (17:02→20:28)
[2020-05-01] MEDS: INSULIN ASPART 100 UNITS/ML 3 ML PEN SC SCH ×2 (19:03→21:26)
[2020-05-01] MEDS ORDERED: MAGNESIUM SULFATE / D5W 1 GM/100 ML BAG IV ONE (19:45)
[2020-05-01] MEDS: CARBIDOPA/LEVODOPA 50/200MG EXT REL TAB PO SCH (21:07)
[2020-05-02] MEDS: PIPERACILLIN/TAZOBACTAM 3.375 GM in DEXTROSE 5% 100 ML IV SCH ×3 (04:43→20:15)
[2020-05-02 05:58] LABS: Hematocrit (blood only) 32.8 % (37-47); Hemoglobin 11.2 g/dL (12.0-16.0); Mean Corpuscular Hemoglobin 32.2 pg (25-34); Mean Corpuscular Hgb Conc 34.1 g/dL (32-36); Mean Corpuscular Volume 94.3 fL (80-100); Mean Platelet Volume 9.6 fL (7.4-10.4); Platelet Count 353 K/uL (130-400); RDW Coefficient of Variation 14.5 % (11.5-14.5); RDW Standard Deviation 49.5 fL (36.4-46.3); Red Blood Count 3.48 M/uL (4.2-5.4); White Blood Count 6.92 K/uL (4.8-10.8)
[2020-05-02 06:39] LABS: Albumin Globulin Ratio 0.9 (0.9-2); Albumin Level 2.9 gm/dl (3.4-5.0); Bilirubin,Total 0.6 mg/dl (0.2-1); Calcium 8.4 mg/dl (8.5-10.1); Creatinine Clr Calc Pharmacy 91.8 ml/min; Est GFR (African American) 103.2; Globulin 3.2 gm/dl (2.5-4.0); Potassium 3.5 mmol/L (3.5-5.1); Total Protein 6.1 gm/dl (6.4-8.2)
--- NOTE | 2020-05-02 07:48 | Electrocardiogram Report ---
Test Reason : Blood Pressure : / mmHG Vent. Rate : 106 BPM Atrial Rate : 106 BPM P-R Int : 146 ms QRS Dur : 084 ms QT Int : 354 ms P-R-T Axes : 084 -37 012 degrees QTc Int : 470 ms Poor data quality, interpretation may be adversely affected Sinus tachycardia Left axis deviation Moderate voltage criteria for LVH, may be normal variant Abnormal ECG When compared with ECG of 21-APR-2020 12:21, No significant change was found Confirmed by Jordan Burris ([id number]) on 05/02/2020 7:48:43 AM Referred By: REFERRED SELF Confirmed By:Jordan Burris
[2020-05-02] MEDS: SODIUM CHLORIDE 0.9% 1000ML 1,000 ML IV SCH ×2 (07:58→16:53)
[2020-05-02] MEDS: AMANTADINE HCL 100 MG CAPSULE PO SCH ×2 (08:02→20:19)
[2020-05-02] MEDS: azaTHIOprine 50 MG TAB PO SCH (08:03)
[2020-05-02] MEDS: ASPIRIN 81 MG ECTAB PO SCH (08:03)
[2020-05-02] MEDS: CARBIDOPA/LEVODOPA 25/100MG TAB PO SCH ×4 (08:03→20:19)
[2020-05-02] MEDS: MULTIVITAMIN TAB PO SCH (08:04)
[2020-05-02] MEDS: ENTACAPONE 200 MG TAB PO SCH ×4 (08:04→20:18)
[2020-05-02] MEDS: INSULIN ASPART 100 UNITS/ML 3 ML PEN SC SCH ×4 (09:15→21:41)
--- NOTE | 2020-05-02 14:58 | Hospitalist Progress Note ---
Date of Service May 02, 2020 Assessment & Plan (1) Acute metabolic encephalopathy: Presented with confusion, agitation, and "thrashing" of her arms and legs most of the day for the 3 days prior to admission as per daughter. She was febrile upon arrival with a possible source of colitis for infection. Was given IV Ativan by EMS on the way in and continued to be lethargic and altered on the morning of admission. This is now much improved. She does have baseline dementia but seems to be at her baseline on 05/02 after being treated with IV antibiotics. -Suspect the "thrashing" was rigors from her fevers (2) Sepsis: Patient now with 3 inpatient stays in the last month or so. The first was for a left lower lobe pneumonia and ESBL E. coli UTI. She was discharged home on doxycycline and Macrobid at that time. She then returned with altered mental status and was found to have a Pseudomonas bacteremia. Her urine at that time did not show evidence of infection, and the source of the Pseudomonas was not found. Nonetheless, she was sent to home to finish out a 14-day course of Cipro. She returned for this admission 5 days later with recurrent fever and altered mental status as well as nausea and vomiting. -CT abdomen/pelvis completed showing nonspecific colitis of the proximal descending colon, and mild biliary ductal dilatation -Gallbladder ultrasound was performed which showed moderately dilated gallbladder and mildly increased biliary ductal dilatation, CBD 1.1 cm, no pericholecystic fluid or gallbladder wall thickening HIDA scan was completed which showed no evidence of acute cholecystitis -Tmax 38.1 on arrival, WBC = 10.97, lactic acid =1.2. Remains afebrile now and leukocytosis is resolved after being treated with IV Zosyn LFTs are normal COVID-19 test was negative Blood cultures were drawn-no growth to date-will follow It is possible that she has a GI source of her previous Pseudomonas bacteremia- the colitis is possibly the source -Recommend colonoscopy when feasible-we will consult GI to get opinion on when to do this -Continue IV Zosyn which covers for previous Pseudomonas bacteremia as well as other GI pathogens -Appreciate general surgery consultation-no surgical need at this time -Okay to advance diet to full liquids -DC IV fluids (3) Colitis: As noted above Treating with IV Zosyn Consult GI (4) Parkinson disease: -History of such, continue amantadine 100 mg BID, carbidopa-levodopa BID, and entacapone (5) Diabetes mellitus: -ISS with Accu-Cheks AC at bedtime -Holding metformin from home -Last A1c on 04/14 was 6.6 -Sliding scale insulin for now (6) Fall: -PT/OT consults -Fall precautions with Parkinsons - patient is fairly ambulatory with walker at baseline (7) Dementia: - mild, intermittent confusion but the patient is alert and oriented x3 per daughter at baseline -Supportive care (8) Ambulatory dysfunction: -As above PT/OT (9) Hypertension: Not on medication for this at home, noted as a diagnosis, blood pressures have been normal here (10) Hypomagnesemia: - Mag 1.6 on admission, replaced and resolved (11) Bullous pemphigoid: Continue azathioprine (12) DVT prophylaxis: - teds, add Lovenox SQ CODE: DNR/DNI Dispo: Continued stay Admission and Anticipated Discharge Date Admission Date: May 01, 2020 Results & Data Results & Data ([facility]) Vital Signs (Past 12 Hours) Vital Signs Temp Pulse Resp BP Pulse Ox 05/02/20 07:01 37.0 C 75 16 127/73 97 PG Care Time/CCT Total # of Minutes Spent Total Time Spent with Patient: Total time spent is greater than 50% in coordination of care (as documented) at patient's floor/unit and/or counseling patient: Coding Level of Care Code 93215 Subseq Hosp Care Lvl 3 Diagnoses Acute metabolic encephalopathy G93.41 Sepsis A41.9; R65.20; G93.40 Sepsis acute organ dysfunction status: with acute organ dysfunction Sepsis type: sepsis due to unspecified organism Severe sepsis acute organ dysfunction type: encephalopathy Severe sepsis shock status: without septic shock Colitis K52.9 Parkinson disease G20 Diabetes mellitus E11.9 Fall W19.XXXA Encounter type: initial encounter Dementia F03.91 Dementia behavioral disturbance: with behavioral disturbance Dementia type: unspecified type Ambulatory dysfunction R26.2 Hypertension I10 Hypertension type: essential hypertension Hypomagnesemia E83.42 Bullous pemphigoid L12.0 DVT prophylaxis Z29.9 (1) Sepsis Sepsis acute organ dysfunction status: with acute organ dysfunction Sepsis type: sepsis due to unspecified organism Severe sepsis acute organ dysfunction type: encephalopathy Severe sepsis shock status: without septic shock Qualified Code(s): A41.9 - Sepsis, unspecified organism; R65.20 - Severe sepsis without septic shock; G93.40 - Encephalopathy, unspecified (2) Fall Encounter type: initial encounter Qualified Code(s): W19.XXXA - Unspecified fall, initial encounter (3) Dementia Dementia behavioral disturbance: with behavioral disturbance Dementia type: unspecified type Qualified Code(s): F03.91 - Unspecified dementia with behavioral disturbance (4) Hypertension Hypertension type: essential hypertension Qualified Code(s): I10 - Essential (primary) hypertension
[2020-05-02] MEDS: ENOXAPARIN INJ 40 MG/0.4 ML SYR SQ SCH (18:25)
[2020-05-02] MEDS: CARBIDOPA/LEVODOPA 50/200MG EXT REL TAB PO SCH (20:19)
[2020-05-03] MEDS: PIPERACILLIN/TAZOBACTAM 3.375 GM in DEXTROSE 5% 100 ML IV SCH ×3 (03:32→21:01)
[2020-05-03 06:25] LABS: Albumin Globulin Ratio 0.8 (0.9-2); Albumin Level 2.8 gm/dl (3.4-5.0); BUN Creatinine Ratio 6.6 (10-20); Bilirubin,Total 0.4 mg/dl (0.2-1); Calcium 8.6 mg/dl (8.5-10.1); Creatinine Clr Calc Pharmacy 93.5 ml/min; Est GFR (African American) 103.9; Est GFR (Non-African American) 89.6; Globulin 3.3 gm/dl (2.5-4.0); Potassium 3.4 mmol/L (3.5-5.1); Total Protein 6.1 gm/dl (6.4-8.2)
[2020-05-03 06:32] LABS: Mean Corpuscular Hemoglobin 32.5 pg (25-34); Mean Corpuscular Volume 94.7 fL (80-100); Mean Platelet Volume 9.6 fL (7.4-10.4); Platelet Count 348 K/uL (130-400); RDW Coefficient of Variation 14.6 % (11.5-14.5); RDW Standard Deviation 50.4 fL (36.4-46.3); Red Blood Count 3.38 M/uL (4.2-5.4); White Blood Count 6.69 K/uL (4.8-10.8)
[2020-05-03 06:40] LABS: Mean Corpuscular Hgb Conc 34.4 g/dL (32-36)
[2020-05-03] MEDS: CARBIDOPA/LEVODOPA 25/100MG TAB PO SCH ×4 (08:02→20:42)
[2020-05-03] MEDS: azaTHIOprine 50 MG TAB PO SCH (08:03)
[2020-05-03] MEDS: MULTIVITAMIN TAB PO SCH (08:03)
[2020-05-03] MEDS: AMANTADINE HCL 100 MG CAPSULE PO SCH ×2 (08:03→20:42)
[2020-05-03] MEDS: ENTACAPONE 200 MG TAB PO SCH ×4 (08:03→20:43)
[2020-05-03] MEDS: ASPIRIN 81 MG ECTAB PO SCH (08:03)
[2020-05-03] MEDS ORDERED: CYANOCOBALAMIN 1000 MCG/ML VIAL IM SCH (09:00)
[2020-05-03] MEDS: INSULIN ASPART 100 UNITS/ML 3 ML PEN SC SCH ×4 (09:18→20:36)
[2020-05-03] MEDS ORDERED: POTASSIUM CHLORIDE 20 MEQ TABCR PO STA (09:45)
--- NOTE | 2020-05-03 09:57 | Gastrointestinal Consultation ---
Date of Consultation May 03, 2020 Assessment & Plan (1) Colitis: Patient is a 80 y.o. female admitted with fever, cough and generalized weakness with abdominal pain and abnormal CT imaging of the descending colon. Suspect ischemic in nature given location and pattern on imaging. Patient cur rently on Zosyn for infectious etiology. Discussed consideration of diagnostic colonoscopy with patient. She overtly refuses consideration of invasive GI work up. Therefore, recommend continuing antibiotics for a total of 10 days and continue supportive care. Supervising Physician Co-Signing Physician Notes I personally evaluated the patient and agree with the findings as documented by LOU Catalan Exam: abd: soft, nt, nd, no HSM continue with abx for total of 10 days, she refuses colonoscopy at this time. If she changes her mind or if condition worsens would need to reconsider endoscopic evaluation. History of Present Illness Reason for Consultation: abnormal CT Requesting Physician: Dr. Mchugh Attending Physician: Dustin Tobin MD History of Present Illness Patient is a 80 year-old female admitted with fever, cough, and generalized fatigue. GI has been consulted in regard to the patient reporting abdominal pain and had undergone a CT a/p which demonstrated nonspecific colonic thickening of the descending colon, felt likely infectious or ischemic in nature. Interestin gly, she did have positive blood cultures earlier this month with pseudomonas. Repeat blood cultures this admission were negative. She remains on IV Zosyn. Patient also underwent a gall bladder work up which was negative for acute cholecystitis. General surgery has evaluated the patient and signed off. Currently, she describes generalized abdominal pain rated 5/10 in intensity. Tolerating clear liquids. No n/v or overt GIB symptoms. Denies diarrhea. Allergies Allergy/AdvReac Type Severity Reaction Status Date / Time No Known Allergies Allergy Verified 05/01/20 04:55 Home Medications Home Medications Medication Instructions Recorded Confirmed Type acetaminophen [Tylenol Extra 500 mg PO QID PRN 07/14/18 05/01/20 History Strength] amantadine HCl 100 mg PO BID 07/14/18 05/01/20 History aspirin [Aspir-81] 81 mg PO DAILY 07/14/18 05/01/20 History azathioprine [Imuran] 50 mg PO DAILY 07/14/18 05/01/20 History cyanocobalamin (vitamin B-12) 1,000 mcg IM MONTHLY 07/14/18 05/01/20 History tramadol [Ultram] 50 mg PO Q6 PRN 07/14/18 05/01/20 History carbidopa-levodopa 1 tab PO HS 07/18/19 05/01/20 History jvzsbxiob-cbmgkwuk-tlvlblcwse 2 tab PO QID 04/13/20 05/01/20 History clobetasol 1 applic TOPICAL BID 04/13/20 05/01/20 History hydrocortisone 1 applic TOPICAL BID PRN 04/13/20 05/01/20 History metformin 1,000 mg PO BID 04/13/20 05/01/20 History multivitamin 1 tab PO DAILY 04/13/20 05/01/20 History nystatin-triamcinolone 1 applic TOPICAL BID PRN 04/13/20 05/01/20 History ciprofloxacin HCl [Cipro] 500 mg PO BID #18 tab 04/26/20 05/01/20 Rx Patient History Medical History Diabetes Hypertension (Chronic) Paroxysmal atrial fibrillation QT prolongation Urinary tract infection Family History Other Aneurysm Stroke Social History Preferred Language: British Communication Ability: Effective Physician Internist Required: No Beliefs That Will Affect Care: None marital status: / Current Living Situation: Family Current Living Situation Comment: DGT Other Information That Helps Us Care for You: No Feels Safe at Home: Yes Safety Concerns: Feels Safe At This Time Smoking Status: Never smoker Hx Alcohol Use: No Hx Substance Use: No Review of Systems Review of Systems: All systems reviewed & are unremarkable except as noted in HPI & below Physical Exam Constitutional: WD/WN, vitals as above well developed and well nourished Eyes: EOM intact bilaterally Neck: normal visual inspection Respiratory: normal respiratory effort, lungs clear to auscultation Cardiovascular: Rate/Rhythm: regular rate and regular rhythm Gastrointestinal (Abdomen): Inspection/Auscultation: normal bowel sounds Percussion/Palpation: abdomen soft; abdomen nontender Musculoskeletal: Extremities: extremities normal to inspection Skin: no rashes, warm and dry Psychiatric: A+Ox3, euthymic affect Results & Data ([facility]) Vital Signs (Past 12 Hours) Vital Signs Temp Pulse Resp BP Pulse Ox 05/03/20 07:27 36.5 C 78 18 128/70 94 05/02/20 22:57 37.4 C 81 16 94/65 L 93 Laboratory Results Abnormal lab results 05/02/20 05/02/20 05/03/20 Range/Units 11:52 16:53 05:13 RBC (4.2-5.4) M/uL Hgb (12.0-16.0) g/dL Hct (37-47) % RDW Std Deviation (36.4-46.3) fL RDW Coeff of Segundo (11.5-14.5) % Potassium 3.4 L (3.5-5.1) mmol/L Chloride 110 H (98-107) mmol/L BUN 3 L (7-18) mg/dl Creatinine 0.52 L (0.6-1.2) mg/dl BUN/Creatinine Ratio 6.6 L (10-20) Glucose 128 H (70-99) mg/dl POC Glucose 155 H 178 H (70-99) mg/dl ALT 6 L (12-78) U/L Total Protein 6.1 L (6.4-8.2) gm/dl Albumin 2.8 L (3.4-5.0) gm/dl Albumin/Globulin Ratio 0.8 L (0.9-2) 05/03/20 05/03/20 Range/Units 06:14 08:22 RBC 3.38 L (4.2-5.4) M/uL Hgb 11.0 L (12.0-16.0) g/dL Hct 32.0 L (37-47) % RDW Std Deviation 50.4 H (36.4-46.3) fL RDW Coeff of Segundo 14.6 H (11.5-14.5) % Potassium (3.5-5.1) mmol/L Chloride (98-107) mmol/L BUN (7-18) mg/dl Creatinine (0.6-1.2) mg/dl BUN/Creatinine Ratio (10-20) Glucose (70-99) mg/dl POC Glucose 143 H (70-99) mg/dl ALT (12-78) U/L Total Protein (6.4-8.2) gm/dl Albumin (3.4-5.0) gm/dl Albumin/Globulin Ratio (0.9-2) PG Care Time/CCT Total # of Minutes Spent Total Time Spent with Patient: Total time spent is greater than 50% in coordination of care (as documented) at patient's floor/unit and/or counseling patient: Coding Level of Care Code 47030 Initial Inpt Care Lvl 3 Diagnoses Colitis K52.9
--- NOTE | 2020-05-03 12:43 | Hospitalist Progress Note ---
Date of Service May 03, 2020 Assessment & Plan (1) Acute metabolic encephalopathy: Presented with confusion, agitation, and "thrashing" of her arms and legs most of the day for the 3 days prior to admission as per daughter. She was febrile upon arrival with a possible source of colitis for infection. Was given IV Ativan by EMS on the way in and continued to be lethargic and altered on the morning of admission. This is now much improved. She does have baseline dementia but seems to be at her baseline on 05/02 after being treated with IV antibiotics. Continues to have uncontrollable chorea like movements though no focal findings (2) Sepsis: Patient now with 3 inpatient stays in the last month or so. The first was for a left lower lobe pneumonia and ESBL E. coli UTI. She was discharged home on doxycycline and Macrobid at that time. She then returned with altered mental status and was found to have a Pseudomonas bacteremia. Her urine at that time did not show evidence of infection, and the source of the Pseudomonas was not found. Nonetheless, she was sent to home to finish out a 14-day course of Cipro. She returned for this admission 5 days later with recurrent fever and altered mental status as well as nausea and vomiting. -CT abdomen/pelvis completed showing nonspecific colitis of the proximal descending colon, and mild biliary ductal dilatation -Gallbladder ultrasound was performed which showed moderately dilated gall bladder and mildly increased biliary ductal dilatation, CBD 1.1 cm, no pericholecystic fluid or gallbladder wall thickening HIDA scan was completed which showed no evidence of acute cholecystitis -Tmax 38.1 on arrival, WBC = 10.97, lactic acid =1.2. Remains afebrile now and leukocytosis is resolved after being treated with IV Zosyn LFTs are normal COVID-19 test was negative Blood cultures were drawn-no growth to date It is possible that she has a GI source of her previous Pseudomonas bacteremia- the colitis is possibly the source -Recommend colonoscopy when feasible- per GI, patient refused invasive workup - GI recommends 10 days abx -Continue IV Zosyn which covers for previous Pseudomonas bacteremia as well as other GI pathogens -Appreciate general surgery consultation-no surgical need at this time -full liquids (3) Colitis: As noted above Continue IV Zosyn Consult GI (4) Parkinson disease: -History of such, continue amantadine 100 mg BID, carbidopa-levodopa BID, and entacapone - acutely worsened parkinsonian dyskinesia - will consult neuro for assistance (5) Diabetes mellitus: -ISS with Accu-Cheks AC at bedtime -Holding metformin from home -Last A1c on 04/14 was 6.6 -Sliding scale insulin for now - bsgs acceptable (6) Fall: -PT/OT consults -Fall precautions with Parkinsons - patient is fairly ambulatory with walker at baseline (7) Dementia: - mild, intermittent confusion but the patient is alert and oriented x3 per daughter at baseline -Supportive care (8) Ambulatory dysfunction: -As above PT/OT (9) Hypertension: Not on medication for this at home, noted as a diagnosis, blood pressures have been normal here (10) Hypomagnesemia: - Mag 1.6 on admission, replaced and resolved (11) Bullous pemphigoid: Continue azathioprine (12) DVT prophylaxis: - teds, Lovenox SQ CODE: DNR/DNI Dispo: Continued stay. Attempted to update daughter, no answer at her number Admission and Anticipated Discharge Date Admission Date: May 02, 2020 Subjective Ms. Nicole is experiencing chorea like movements of all of her limbs. She reports generalized pain in her joints. ROS Constitutional: no chills, aches, sweats or fever Respiratory: no sob,cough, sputum, or wheezing Cardiac: no chest pain, palpitations, edema, orthopnea or lightheadedness GI: no abdominal pain, nausea, vomiting, diarrhea or constipation : no dysuria or hesitancy Extremities: see HPI Skin: no rash All other systems reviewed and negative Physical Exam Physical Exam: General: no distress Eyes: normal inspection, PERLL Respiratory: chest non tender, clear to auscultation, normal breath sounds, no respiratory distress, no accessory muscle use Cardiac: regular rate and rhythm, no rub or gallop, no murmur, no edema, no jvd GI/: active bowel sounds, no abd pain or tenderness, soft, non distended Extremities: normal range of motion, normal strength, non tender Neuro/Psych: alert and oriented x 3, normal mood and affect Skin: normal color, dry Results & Data Results & Data ([facility]) Vital Signs (Past 12 Hours) Vital Signs Temp Pulse Resp BP Pulse Ox 05/03/20 07:27 36.5 C 78 18 128/70 94 PG Care Time/CCT Total # of Minutes Spent Total Time Spent with Patient: Total time spent is greater than 50% in coordination of care (as documented) at patient's floor/unit and/or counseling patient: Coding Level of Care Code 94979 Subseq Hosp Care Lvl 3 Diagnoses Acute metabolic encephalopathy G93.41 Sepsis A41.9; R65.20; G93.40 Sepsis acute organ dysfunction status: with acute organ dysfunction Sepsis type: sepsis due to unspecified organism Severe sepsis acute organ dysfunction type: encephalopathy Severe sepsis shock status: without septic shock Colitis K52.9 Parkinson disease G20 Diabetes mellitus E11.9 Fall W19.XXXA Encounter type: initial encounter Dementia F03.91 Dementia behavioral disturbance: with behavioral disturbance Dementia type: unspecified type Ambulatory dysfunction R26.2 Hypertension I10 Hypertension type: essential hypertension Hypomagnesemia E83.42 Bullous pemphigoid L12.0 DVT prophylaxis Z29.9 (1) Sepsis Sepsis acute organ dysfunction status: with acute organ dysfunction Sepsis type: sepsis due to unspecified organism Severe sepsis acute organ dysfunction type: encephalopathy Severe sepsis shock status: without septic shock Qualified Code(s): A41.9 - Sepsis, unspecified organism; R65.20 - Severe sepsis without septic shock; G93.40 - Encephalopathy, unspecified (2) Fall Encounter type: initial encounter Qualified Code(s): W19.XXXA - Unspecified fall, initial encounter (3) Dementia Dementia behavioral disturbance: with behavioral disturbance Dementia type: unspecified type Qualified Code(s): F03.91 - Unspecified dementia with behavioral disturbance (4) Hypertension Hypertension type: essential hypertension Qualified Code(s): I10 - Essential (primary) hypertension
--- NOTE | 2020-05-03 15:11 | Surgery Progress Note ---
Date of Service F/U abdominal pain, pt has significant abdominal pain, no nausea. no vomiting, no fever, May 03, 2020 Assessment & Plan (1) Altered mental status: 80 yr old woman with multiple other medical issues and now third episode of sepsis in short time interval. Based on imaging and lack of pain in RUQ on exam, I think cholecystitis is unlikely to be the source. CT scan does show nonspecific colitis of proximal descending colon and she is tender in the LLQ on exam. Agree with workup (blood and urine cultures) and antibiotics. If does not improve, could consider HIDA scan to rule out acalculous cholecystitis. Supervising Physician Co-Signing Physician Notes I personally evaluated the patient and agree with the findings as documented by LOU Catalan Exam: abd: soft, nt, nd, no HSM continue with abx for total of 10 days, she refuses colonoscopy at this time. If she changes her mind or if condition worsens would need to reconsider endoscopic evaluation. Subjective ROS Constitutional: no chills, aches, sweats or fever Respiratory: no sob,cough, sputum, or wheezing Cardiac: no chest pain, palpitations, edema, orthopnea or lightheadedness GI: no abdominal pain, nausea, vomiting, diarrhea or constipation : no dysuria or hesitancy Extremities: see HPI Skin: no rash All other systems reviewed and negative Physical Exam Constitutional: WD/WN, vitals as above Eyes: PERRL, conjunctivae normal, anicteric sclerae Neck: trachea midline, no thyromegaly Respiratory: normal respiratory effort, lungs clear to auscultation Gastrointestinal (Abdomen): normal bowel sounds, soft, nontender, no hepatosplenomegaly Neurologic: awake Results & Data Vital Signs (Past 12 Hours) Vital Signs Temp Pulse Resp BP Pulse Ox 05/03/20 14:52 37.2 C 90 21 145/55 H 95 05/03/20 07:27 36.5 C 78 18 128/70 94 Laboratory Results Abnormal lab results 05/02/20 05/03/20 05/03/20 Range/Units 16:53 05:13 06:14 RBC 3.38 L (4.2-5.4) M/uL Hgb 11.0 L (12.0-16.0) g/dL Hct 32.0 L (37-47) % RDW Std Deviation 50.4 H (36.4-46.3) fL RDW Coeff of Segundo 14.6 H (11.5-14.5) % Potassium 3.4 L (3.5-5.1) mmol/L Chloride 110 H (98-107) mmol/L BUN 3 L (7-18) mg/dl Creatinine 0.52 L (0.6-1.2) mg/dl BUN/Creatinine Ratio 6.6 L (10-20) Glucose 128 H (70-99) mg/dl POC Glucose 178 H (70-99) mg/dl ALT 6 L (12-78) U/L Total Protein 6.1 L (6.4-8.2) gm/dl Albumin 2.8 L (3.4-5.0) gm/dl Albumin/Globulin Ratio 0.8 L (0.9-2) 05/03/20 05/03/20 Range/Units 08:22 12:12 RBC (4.2-5.4) M/uL Hgb (12.0-16.0) g/dL Hct (37-47) % RDW Std Deviation (36.4-46.3) fL RDW Coeff of Segundo (11.5-14.5) % Potassium (3.5-5.1) mmol/L Chloride (98-107) mmol/L BUN (7-18) mg/dl Creatinine (0.6-1.2) mg/dl BUN/Creatinine Ratio (10-20) Glucose (70-99) mg/dl POC Glucose 143 H 123 H (70-99) mg/dl ALT (12-78) U/L Total Protein (6.4-8.2) gm/dl Albumin (3.4-5.0) gm/dl Albumin/Globulin Ratio (0.9-2) Diagnostic Findings NUCLEAR MEDICINE HEPATOBILIARY SCAN CLINICAL HISTORY: Fever of unknown source. Evaluate for acute cholecystitis. COMPARISON: CT of the abdomen and pelvis and right upper quadrant ultrasound 2019. TECHNIQUE: 5.5 mCi of technetium 99m Choletec IV was injected at 2:40 PM on May 01, 2020. Immediately following injection, imaging of the abdomen was carried out for 60 minutes in the anterior projection. FINDINGS: Hepatic uptake of radiotracer is prompt and homogeneous. Activity is identified within the common bile duct and small bowel at 10 minutes. Gallbladder activity is noted at 20 minutes. IMPRESSION: No evidence for acute cholecystitis. US gallbladder CLINICAL HISTORY: assess for cholecystitis COMPARISON STUDY: CT of the abdomen and pelvis May 01, 2020. FINDINGS: Hepatic echogenicity is increased. No hepatic lesions are present. There is mild biliary ductal dilatation. The common bile duct measures 1.1 cm in caliber. No common bile duct calculi are identified. Gallbladder is distended. There are no gallstones. No gallbladder wall thickening is present. No sonographic Garcia sign was reported. Pancreatic body is normal. Head and tail are partially obscured. There is no right hydronephrosis. IMPRESSION: 1. No gallstones. No gallbladder wall thickening. Moderate gallbladder distention. 2. Mild biliary ductal dilatation which could be correlated with liver function tests. 3. Fatty infiltration of the liver. CT OF THE ABDOMEN AND PELVIS WITH CONTRAST CLINICAL HISTORY: fever unknown source COMPARISON STUDY: CT of the abdomen and pelvis February 20, 2017. TECHNIQUE: Following IV administration of 93 mL of Optiray-320, axial images of the abdomen and pelvis were obtained from the lung bases to the proximal femurs. Images were reviewed in the axial, sagittal, and coronal planes. IV contrast was administered without complication. Automated exposure control was utilized for the study. A dose lowering technique was utilized adhering to the principles of ALARA. CT DOSE: 932.38 mGycm FINDINGS: A small hiatal hernia is noted. There is mild cardiomegaly. No pneumatosis, free air or portal venous gas is present. Mild biliary ductal dilatation is noted. This is slightly increased since exam of February 20, 2017. Pancreatic glandular atrophy is noted. The gallbladder is mildly distended. There is no adjacent infiltration. Exam is optimized by motion artifact. There is no hydronephrosis. A probable 2 mm calculus within the lower pole of the left kidney is noted. There is no evidence for a bowel obstruction. There is mild wall thickening and pericolonic infiltration of the proximal descending colon. There is no free air or abscess. No lymphadenopathy is present. No suspicious osseous lesions are noted. IMPRESSION: 1. Mild wall thickening of the colonic infiltration of the proximal descending colon which represents a nonspecific colitis which could be infectious, inflammatory or ischemic in etiology. A nonemergent colonoscopy if not recently performed, is recommended once symptoms resolve to exclude the less likely possibility of an underlying neoplasm. 2. Mild biliary ductal dilatation which could be correlated with liver function tests. 3. Small hiatal hernia. (1) Altered mental status Altered mental status type: disorientation Qualified Code(s): R41.0 - Disorientation, unspecified
[2020-05-03] MEDS: ENOXAPARIN INJ 40 MG/0.4 ML SYR SQ SCH (16:44)
--- NOTE | 2020-05-03 17:28 | Neurology Consultation ---
Date of Consultation May 03, 2020 Assessment & Plan (1) Colitis: (2) Altered mental status: Stephie Nicole is an 80 yo woman w/ PMH of Parkinson's disease c/b dementia, DM, HTN, prolonged QT interval, bullous pemphigoid on chronic topical steroids/imuran and recent sepsis secondary to Pseudomonas bacteremia and E. coli UTI who p/t [facility] after fever, confusion and agitation. # AMS: likely multifactorial in the setting of recent sepsis, current colitis, and baseline dementia -Delirium precautions, lights on during day, lights off at night, avoid benzos and opiates as able -Given active infection, would consider holding Imuran -Would check B12 and TSH # Parkinson's disease: There is concern that she is having dyskinesias, however none was noted on examination today. She denies any wearing off or dyskinesias, she is a poor historian. She is currently on Stalevo, long-acting Sinemet at night and amantadine. -Recommend converting to long-acting Sinemet and slowly weaning off Stalevo as follows: sinemet CR 50/200mg 2 tabs at 7am/1pm and 1 tab at 7pm. Take entacapone 200mg tid with each sinemet CR dose. - continue amantadine 100mg bid - further medication change will occur in the outpatient after previous records obtained - she may need referral for PEG tube/duopa vs transitioning to sinemet ER Thank you for this interesting consult. Plan of care discussed with primary team. Please call or text questions. (3) Parkinson disease: History of Present Illness Attending Physician: Dustin Tobin MD History of Present Illness Stephie Nicole is an 80 yo woman w/ PMH of Parkinson's disease c/b dementia, DM, HTN, prolonged QT interval, bullous pemphigoid on chronic topical steroids/imuran and recent sepsis secondary to Pseudomonas bacteremia and E. coli UTI who p/t [facility] after fever, confusion and agitation. In the ED, she was febrile to 38.1, BP 128/70, pulse 107, respiratory rate 18, satting 95% on room air. Labs admission notable for WBC 10.97, hemoglobin 11.3, platelets 380, creatinine 0.63, glucose 106, electrolytes within normal, calcium 8.6, magnesium 1.6, LFTs within normal, troponin negative, lipase 29, UA no infection, INR 1.1, lactate 1.2, COVID negative. CT abdomen/pelvis revealed colitis of the descending colon, mild biliary duct dilation, small hiatal hernia, mild cardiomegaly, pancreatic atrophy. CT head showed no hemorrhage or hypodensities, mild to moderate generalized atrophy present. She has been seen by GI for her colitis and is not interested in having colonoscopy at this time. They recommended continuing antibiotics for 10 days total. Neurology consulted given worsening of dyskinesias. On examination this afternoon, she denied having any wearing off or dyskinesias, however she is a poor historian. She did not have any tremor, cogwheel rigidity, or dyskinesias that were observed today. She reports that she has not seen a neurologist in many years and that she is only had Parkinson's for maybe 5 years. Unclear who has been following with her as there are no notes in our system recently. Allergies Allergy/AdvReac Type Severity Reaction Status Date / Time No Known Allergies Allergy Verified 05/01/20 04:55 Home Medications Home Medications Medication Instructions Recorded Confirmed Type acetaminophen [Tylenol Extra 500 mg PO QID PRN 07/14/18 05/01/20 History Strength] amantadine HCl 100 mg PO BID 07/14/18 05/01/20 History aspirin [Aspir-81] 81 mg PO DAILY 07/14/18 05/01/20 History azathioprine [Imuran] 50 mg PO DAILY 07/14/18 05/01/20 History cyanocobalamin (vitamin B-12) 1,000 mcg IM MONTHLY 07/14/18 05/01/20 History tramadol [Ultram] 50 mg PO Q6 PRN 07/14/18 05/01/20 History carbidopa-levodopa 1 tab PO HS 07/18/19 05/01/20 History vcqboxxbe-jsombmwi-yabqvxvpoo 2 tab PO QID 04/13/20 05/01/20 History clobetasol 1 applic TOPICAL BID 04/13/20 05/01/20 History hydrocortisone 1 applic TOPICAL BID PRN 04/13/20 05/01/20 History metformin 1,000 mg PO BID 04/13/20 05/01/20 History multivitamin 1 tab PO DAILY 04/13/20 05/01/20 History nystatin-triamcinolone 1 applic TOPICAL BID PRN 04/13/20 05/01/20 History ciprofloxacin HCl [Cipro] 500 mg PO BID #18 tab 04/26/20 05/01/20 Rx Patient History Medical History Diabetes Hypertension (Chronic) Paroxysmal atrial fibrillation QT prolongation Urinary tract infection Family History Other Aneurysm Stroke Social History Smoking Status: Never smoker Tobacco Type: Pipe Hx Alcohol Use: No Hx Substance Use: No Preferred Language: Gibraltarian Communication Ability: Effective Claim Rep Required: No Beliefs That Will Affect Care: None marital status: / Current Living Situation: Family Current Living Situation Comment: DGT Other Information That Helps Us Care for You: No Feels Safe at Home: Yes Safety Concerns: Feels Safe At This Time Review of Systems Review of Systems: Unobtainable due to cognitive status Exam (Neuro) Physical Exam: General Exam: GEN: NAD, sitting in bed. HEENT: No conjunctival injection, no rhinorrhea. CV: RRR, no peripheral edema PULM: Nonlabored respirations on room air. Neuro Exam: MS: Awake and Alert. Oriented to person, not place or date. Speech fluent though sparse, without dysarthria or paraphasic errors. Language intact including naming, comprehension, repetition. Cognition and memory grossly impaired. Inattentive. No neglect. CN: Visual oneal full. No extinction to double simultaneous stimuli. No optic disc edema on fundoscopic exam. PERRLA OU. EOMI without nystagmus. Facial sensation intact to LT. Facial muscles full and symmetric. Hearing intact to conversation. Uvula midline with symmetric palatal elevation. Shoulder shrug normal. Tongue midline. MOTOR: Normal bulk and tone, no clear cogwheeling noted. No pronator drift. BUE strength 5/5 at deltoids, biceps, triceps, and hand grasp bilaterally. BLE strength 4-/5 at iliopsoas, 4/5 hamstrings, 4/5 quadriceps, 4/5 tibialis anterior, and 5/5 gastrocnemius bilaterally. No rest or action tremor noted. REFLEXES: 1+ at biceps, triceps, brachioradialis, absent patella and absent Achilles bilaterally. Flexor plantar responses bilaterally. SENSORY: Intact to LT without extinction to double simultaneous stimuli. Vibration diminished in BLEs up to the mid-thighs. COORDINATION: No dysmetria or ataxia on [id number] bilaterally. Normal finger taps bilaterally. GAIT: deferred given physical status Results & Data ([facility]) Vital Signs (Past 12 Hours) Vital Signs Temp Pulse Resp BP Pulse Ox 05/03/20 14:52 37.2 C 90 21 145/55 H 95 05/03/20 07:27 36.5 C 78 18 128/70 94 PG Care Time/CCT Total # of Minutes Spent Total Time Spent with Patient: Total time spent is greater than 50% in coordination of care (as documented) at patient's floor/unit and/or counseling patient: Coding Level of Care Code 41554 Initial Inpt Care Lvl 3 Diagnoses Colitis K52.9 Altered mental status R41.0 Altered mental status type: disorientation Parkinson disease G20 (1) Altered mental status Altered mental status type: disorientation Qualified Code(s): R41.0 - Disorientation, unspecified
[2020-05-03] MEDS: CARBIDOPA/LEVODOPA 50/200MG EXT REL TAB PO SCH (21:12)
[2020-05-04] MEDS: PIPERACILLIN/TAZOBACTAM 3.375 GM in DEXTROSE 5% 100 ML IV SCH ×3 (03:58→20:01)
[2020-05-04 06:28] LABS: Hematocrit (blood only) 34.1 % (37-47); Hemoglobin 11.4 g/dL (12.0-16.0); Mean Corpuscular Hemoglobin 31.5 pg (25-34); Mean Corpuscular Hgb Conc 33.4 g/dL (32-36); Mean Corpuscular Volume 94.2 fL (80-100); Mean Platelet Volume 9.9 fL (7.4-10.4); Platelet Count 346 K/uL (130-400); RDW Coefficient of Variation 14.5 % (11.5-14.5); RDW Standard Deviation 49.8 fL (36.4-46.3); Red Blood Count 3.62 M/uL (4.2-5.4); White Blood Count 6.47 K/uL (4.8-10.8)
[2020-05-04 06:50] LABS: Alanine Aminotransferase < 6 U/L (12-78); Albumin Level 2.8 gm/dl (3.4-5.0); Aspartate Aminotransferase 13 U/L (15-37); BUN Creatinine Ratio 6.3 (10-20); Blood Urea Nitrogen 3 mg/dl (7-18); Calcium 8.9 mg/dl (8.5-10.1); Carbon Dioxide 24 mmol/L (21-32); Chloride 109 mmol/L (98-107); Creatinine Clr Calc Pharmacy 90.1 ml/min; Est GFR (African American) 102.6; Est GFR (Non-African American) 88.5; Glucose 129 mg/dl (70-99); Potassium 3.4 mmol/L (3.5-5.1); Sodium 140 mmol/L (136-145)
[2020-05-04 07:01] LABS: Albumin Globulin Ratio 0.9 (0.9-2); Alkaline Phosphatase 76 U/L (45-117); Bilirubin,Total 0.5 mg/dl (0.2-1); Globulin 3.2 gm/dl (2.5-4.0)
[2020-05-04] MEDS: ACETAMINOPHEN 325 MG TAB PO PRN (07:44)
[2020-05-04] MEDS: AMANTADINE HCL 100 MG CAPSULE PO SCH ×2 (07:44→21:09)
[2020-05-04] MEDS: ASPIRIN 81 MG ECTAB PO SCH (07:44)
[2020-05-04] MEDS: CARBIDOPA/LEVODOPA 25/100MG TAB PO SCH (07:44)
[2020-05-04] MEDS: MULTIVITAMIN TAB PO SCH (07:44)
[2020-05-04] MEDS: ENTACAPONE 200 MG TAB PO SCH ×3 (07:45→18:11)
[2020-05-04] MEDS ORDERED: POTASSIUM CHLORIDE 20 MEQ/15 ML UDC PO ONE (08:45)
[2020-05-04] MEDS ORDERED: CYANOCOBALAMIN 1000 MCG/ML VIAL IM SCH (09:00)
[2020-05-04] MEDS ORDERED: ENTACAPONE 200 MG TAB PO ONE (09:00)
[2020-05-04] MEDS ORDERED: CARBIDOPA/LEVODOPA 50/200MG EXT REL TAB PO ONE (09:00)
[2020-05-04] MEDS: INSULIN ASPART 100 UNITS/ML 3 ML PEN SC SCH ×4 (09:05→20:55)
--- NOTE | 2020-05-04 09:36 | Gastroenterology Progress Note ---
Date of Service May 04, 2020 Assessment & Plan (1) Colitis: 1. Continue antibiotic coverage for a total of 10 days. 2. Advance diet as tolerated. 3. Continue supportive care. 4. Will sign off at this time. Please do not hesitate to contact us if needed again during this admission. Admission and Anticipated Discharge Date Admission Date: May 02, 2020 Supervising Physician Co-Signing Physician Notes I personally evaluated the patient and agree with the findings as documented by LOU Catalan Exam: abd: soft, nt, nd, no HSM Subjective Patient reports feeling well from a GI standpoint. Denies any further abdominal pain. No diarrhea, or n/v. Denies any overt GIB. Tolerating diet. Continues Zosy. Review of Systems Constitutional: no fever and no chills Gastrointestinal: as per Subjective / HPI Physical Exam Constitutional: WD/WN, vitals as above well developed and well nourished Eyes: EOM intact bilaterally Neck: normal visual inspection Respiratory: normal respiratory effort, lungs clear to auscultation Cardiovascular: Rate/Rhythm: regular rate and regular rhythm Gastrointestinal (Abdomen): Inspection/Auscultation: normal bowel sounds Percussion/Palpation: abdomen soft; abdomen nontender Results & Data Results & Data ([facility]) Vital Signs (Past 12 Hours) Vital Signs Temp Pulse Resp BP Pulse Ox 05/04/20 07:36 36.4 C L 77 16 126/72 94 05/03/20 23:30 36.8 C 78 20 123/61 97 PG Care Time/CCT Total # of Minutes Spent Total Time Spent with Patient: Total time spent is greater than 50% in coordination of care (as documented) at patient's floor/unit and/or counseling patient: Coding Level of Care Code 41916 Subseq Hosp Care Lvl 3 Diagnoses Colitis K52.9
--- NOTE | 2020-05-04 12:38 | Hospitalist Progress Note ---
Date of Service May 04, 2020 Assessment & Plan (1) Acute metabolic encephalopathy: Presented with confusion, agitation, and "thrashing" of her arms and legs most of the day for the 3 days prior to admission as per daughter. She was febrile upon arrival with a possible source of colitis for infection. Alert and oriented today though with continued involuntary movements TSH wnl, B12 high (2) Sepsis: Patient now with 3 inpatient stays in the last month or so. The first was for a left lower lobe pneumonia and ESBL E. coli UTI. She was discharged home on doxycycline and Macrobid at that time. She then returned with altered mental status and was found to have a Pseudomonas bacteremia. Her urine at that time did not show evidence of infection, and the source of the Pseudomonas was not found. Nonetheless, she was sent to home to finish out a 14-day course of Cipro. She returned for this admission 5 days later with recurrent fever and altered mental status as well as nausea and vomiting. -CT abdomen/pelvis completed showing nonspecific colitis of the proximal descending colon, and mild biliary ductal dilatation -Gallbladder ultrasound was performed which showed moderately dilated gallbladder and mildly increased biliary ductal dilatation, CBD 1.1 cm, no pericholecystic fluid or gallbladder wall thickening HIDA scan was completed which showed no evidence of acute cholecystitis -Tmax 38.1 on arrival, WBC = 10.97, lactic acid =1.2. Remains afebrile now and leukocytosis is resolved after being treated with IV Zosyn LFTs are normal COVID-19 test was negative Blood cultures were drawn-no growth to date It is possible that she has a GI source of her previous Pseudomonas bacteremia- the colitis is possibly the source -Per GI, patient refused invasive workup and does not want a colonoscopy. I discussed with patient and she is quite adamant that she does not want one. Her daughter reports she has never had one in the past. - GI recommends 10 days abx -Continue IV Zosyn which covers for previous Pseudomonas bacteremia as well as other GI pathogens -Appreciate general surgery consultation-no surgical need at this time -advance diet as tolerated per GI (3) Colitis: Likely infectious Continue IV Zosyn Consult GI - recommendations as above (4) Parkinson disease: -History of such, continue amantadine 100 mg BID, - Neuro consulted - recommend weaning off of Stalevo and converting to long acting Sinemet with the following schedule: Sinemet CR 50/200mg 2 tabs at 7am/1pm and 1 tab at 7pm. Take entacapone 200mg tid with each sinemet CR dose. (5) Diabetes mellitus: -ISS with Accu-Cheks AC at bedtime -Holding metformin from home -Last A1c on 04/14 was 6.6 -Sliding scale insulin for now - bsgs acceptable (6) Fall: -PT/OT consults -Fall precautions with Parkinsons - patient is fairly ambulatory with walker at baseline (7) Dementia: - mild, intermittent confusion but the patient is alert and oriented x3 -Supportive care (8) Ambulatory dysfunction: -As above PT/OT (9) Hypertension: Not on medication for this at home, noted as a diagnosis, blood pressures have been normal here (10) Hypomagnesemia: - Mag 1.6 on admission, replaced and resolved (11) Bullous pemphigoid: Hold azathioprine while being treated for infection (12) Joint pain: Will give lidoderm for left shoulder pain. Encourage patient to use left arm/hand in ROM exercise. (13) DVT prophylaxis: - Nora nievesnoajit SQ CODE: DNR/DNI Dispo: Continued stay, referral sent to [facility] unfortunately they cannot take patient with IV abx, CM working on finding a facility. Daughter, Pili, updated by phone Admission and Anticipated Discharge Date Admission Date: May 02, 2020 Subjective Ms. Nicole is alert and oriented. She reports some pain in her shoulder and pins and needles in her left hand at times with pain that extends to the elbow, experienced this yesterday intermittently as well. No neck pain. ROS Constitutional: no chills, aches, sweats or fever Respiratory: no sob,cough, sputum, or wheezing Cardiac: no chest pain, palpitations, edema, orthopnea or lightheadedness GI: no abdominal pain, nausea, vomiting, diarrhea or constipation : no dysuria or hesitancy Extremities: see HPI Skin: no rash All other systems reviewed and negative Physical Exam Physical Exam: General: no distress Eyes: normal inspection, PERLL Respiratory: chest non tender, clear to auscultation, normal breath sounds, no respiratory distress, no accessory muscle use Cardiac: regular rate and rhythm, no rub or gallop, no murmur, no edema, no jvd GI/: active bowel sounds, no abd pain or tenderness, soft, non distended Extremities: normal range of motion, normal strength, non tender, equal process treater strength, CN II - XII intact, no drift Neuro/Psych: alert and oriented x 3, normal mood and affect Skin: normal color, dry Results & Data Results & Data ([facility]) Vital Signs (Past 12 Hours) Vital Signs Temp Pulse Resp BP Pulse Ox 05/04/20 07:36 36.4 C L 77 16 126/72 94 PG Care Time/CCT Total # of Minutes Spent Total Time Spent with Patient: Total time spent is greater than 50% in coordination of care (as documented) at patient's floor/unit and/or counseling patient: Coding Level of Care Code 52630 Subseq Hosp Care Lvl 3 Diagnoses Acute metabolic encephalopathy G93.41 Sepsis A41.9; R65.20; G93.40 Sepsis acute organ dysfunction status: with acute organ dysfunction Sepsis type: sepsis due to unspecified organism Severe sepsis acute organ dysfunction type: encephalopathy Severe sepsis shock status: without septic shock Colitis K52.9 Parkinson disease G20 Diabetes mellitus E11.9 Fall W19.XXXA Encounter type: initial encounter Dementia F03.91 Dementia behavioral disturbance: with behavioral disturbance Dementia type: unspecified type Ambulatory dysfunction R26.2 Hypertension I10 Hypertension type: essential hypertension Hypomagnesemia E83.42 Bullous pemphigoid L12.0 Joint pain M25.50 DVT prophylaxis Z29.9 (1) Dementia Dementia behavioral disturbance: with behavioral disturbance Dementia type: unspecified type Qualified Code(s): F03.91 - Unspecified dementia with behavioral disturbance (2) Sepsis Sepsis acute organ dysfunction status: with acute organ dysfunction Sepsis type: sepsis due to unspecified organism Severe sepsis acute organ dysfunction type: encephalopathy Severe sepsis shock status: without septic shock Qualified Code(s): A41.9 - Sepsis, unspecified organism; R65.20 - Severe sepsis without septic shock; G93.40 - Encephalopathy, unspecified (3) Hypertension Hypertension type: essential hypertension Qualified Code(s): I10 - Essential (primary) hypertension (4) Fall Encounter type: initial encounter Qualified Code(s): W19.XXXA - Unspecified fall, initial encounter
[2020-05-04] MEDS: CARBIDOPA/LEVODOPA 50/200MG EXT REL TAB PO SCH ×2 (12:44→18:11)
[2020-05-04] MEDS: LIDOCAINE 5% 1 PATCH TD SCH (13:35)
[2020-05-04] MEDS: ENOXAPARIN INJ 40 MG/0.4 ML SYR SQ SCH (15:49)
[2020-05-04] MEDS: ONDANSETRON INJ 2 MG/ML 2 ML VIAL IV PRN (19:56)
[2020-05-04] MEDS ORDERED: LORazepam 1 MG/2 ML VIAL IV STA (21:19)
[2020-05-05] MEDS: PIPERACILLIN/TAZOBACTAM 3.375 GM in DEXTROSE 5% 100 ML IV SCH ×3 (05:01→20:17)
[2020-05-05 06:37] LABS: Basophils # (auto) 0.02 K/uL (0-0.2); Basophils % (auto) 0.2 %; Eosinophils # (auto) 0.13 K/uL (0-0.5); Eosinophils % (auto) 1.5 %; Hematocrit (blood only) 34.2 % (37-47); Hemoglobin 11.5 g/dL (12.0-16.0); Immature Granulocytes # (auto) 0.01 K/uL (0.00-0.02); Immature Granulocytes % (auto) 0.1 %; Lymphocytes # (auto) 1.44 K/uL (1.2-3.4); Mean Corpuscular Hgb Conc 33.6 g/dL (32-36); Mean Corpuscular Volume 95.3 fL (80-100); Mean Platelet Volume 9.7 fL (7.4-10.4); Monocytes # (auto) 0.84 K/uL (0.11-0.59); Monocytes % (auto) 9.9 %; Neutrophils # (auto) 6.04 K/uL (1.4-6.5); Neutrophils % (auto) 71.3 %; Platelet Count 364 K/uL (130-400); RDW Coefficient of Variation 14.8 % (11.5-14.5); RDW Standard Deviation 51.7 fL (36.4-46.3); Red Blood Count 3.59 M/uL (4.2-5.4); White Blood Count 8.48 K/uL (4.8-10.8)
[2020-05-05] MEDS: CARBIDOPA/LEVODOPA 50/200MG EXT REL TAB PO SCH ×4 (07:10→18:38)
[2020-05-05] MEDS: ENTACAPONE 200 MG TAB PO SCH ×3 (07:10→18:09)
[2020-05-05 07:12] LABS: BUN Creatinine Ratio 12.7 (10-20); Creatinine Clr Calc Pharmacy 83.9 ml/min; Est GFR (African American) 100.2; Est GFR (Non-African American) 86.4; Potassium 3.8 mmol/L (3.5-5.1)
[2020-05-05] MEDS: LIDOCAINE 5% 1 PATCH TD SCH (07:25)
[2020-05-05] MEDS: MULTIVITAMIN TAB PO SCH (07:27)
[2020-05-05] MEDS: AMANTADINE HCL 100 MG CAPSULE PO SCH ×2 (07:27→21:09)
[2020-05-05] MEDS: ASPIRIN 81 MG ECTAB PO SCH (07:27)
[2020-05-05] MEDS: INSULIN ASPART 100 UNITS/ML 3 ML PEN SC SCH ×4 (08:59→21:08)
--- NOTE | 2020-05-05 09:30 | Hospitalist Progress Note ---
Date of Service May 05, 2020 Assessment & Plan (1) Acute metabolic encephalopathy: Presented with confusion, agitation, and "thrashing" of her arms and legs most of the day for the 3 days prior to admission as per daughter. She was febrile upon arrival with a possible source of colitis for infection. Alert and oriented today though with continued involuntary movements TSH wnl, B12 high (2) Sepsis: Patient now with 3 inpatient stays in the last month or so. The first was for a left lower lobe pneumonia and ESBL E. coli UTI. She was discharged home on doxycycline and Macrobid at that time. She then returned with altered mental status and was found to have a Pseudomonas bacteremia. Her urine at that time did not show evidence of infection, and the source of the Pseudomonas was not found. Nonetheless, she was sent to home to finish out a 14-day course of Cipro. She returned for this admission 5 days later with recurrent fever and altered mental status as well as nausea and vomiting. -CT abdomen/pelvis completed showing nonspecific colitis of the proximal descending colon, and mild biliary ductal dilatation -Gallbladder ultrasound was performed which showed moderately dilated gallbladder and mildly increased biliary ductal dilatation, CBD 1.1 cm, no pericholecystic fluid or gallbladder wall thickening HIDA scan was completed which showed no evidence of acute cholecystitis -Tmax 38.1 on arrival, WBC = 10.97, lactic acid =1.2. Remains afebrile now and leukocytosis is resolved after being treated with IV Zosyn LFTs are normal COVID-19 test was negative Blood cultures were drawn-no growth to date It is possible that she has a GI source of her previous Pseudomonas bacteremia- the colitis is possibly the source -Per GI, patient refused invasive workup and does not want a colonoscopy. I discussed with patient and she is quite adamant that she does not want one. Her daughter reports she has never had one in the past. - GI recommends 10 days abx -Continue IV Zosyn which covers for previous Pseudomonas bacteremia as well as other GI pathogens -Appreciate general surgery consultation-no surgical need at this time -advance diet as tolerated per GI - Patient appears a bit clinically dry to day so gave 1L NSS @ 80 mls x 1L today. (3) Colitis: suspected infectious colitis Continue IV Zosyn Consult GI - recommendations as above (4) Parkinson disease: -History of such, continue amantadine 100 mg BID, - Neuro consulted - recommend weaning off of Stalevo and converting to long acting Sinemet with the following schedule: Sinemet CR 50/200mg 2 tabs at 7am/1pm and 1 tab at 7pm. Take entacapone 200mg tid with each sinemet CR dose. - will order low dose of ativan prn HS for sleep as patient is becoming quite exhausted from her Parkinsonian movements and is having trouble getting them to calm enough at night for her to sleep. She had 1mg last evening to good effect but oversedated this morning. (5) Diabetes mellitus: -ISS with Accu-Cheks AC at bedtime -Holding metformin from home -Last A1c on 04/14 was 6.6 -Sliding scale insulin for now - bsgs acceptable (6) Fall: -PT/OT consults -Fall precautions with Parkinsons - patient is fairly ambulatory with walker at baseline (7) Dementia: - mild, intermittent confusion but the patient is alert and oriented x3 -Supportive care (8) Ambulatory dysfunction: -As above PT/OT (9) Hypertension: Not on medication for this at home, noted as a diagnosis, blood pressures have been normal here (10) Hypomagnesemia: - Mag 1.6 on admission, replaced and resolved (11) Bullous pemphigoid: Hold azathioprine while being treated for infection (12) Joint pain: Will give lidoderm for left shoulder pain. (13) Left hand pain: Persistent - given recent fall prior to admission, will get an Xray 2 view (14) DVT prophylaxis: - Andree nieves SQ CODE: DNR/DNI Dispo: Continued stay, referral sent to [facility] unfortunately they cannot take patient with IV abx, CM working on finding a facility. Admission and Anticipated Discharge Date Admission Date: May 02, 2020 Subjective Ms. Nicole had a difficult night with her involuntary Parkinson's movements and requested a sedative to give her a rest. She did get some relief over night but was rather sedate this morning. This afternoon she has woken up a bit. She is still complaining of pain in her left hand ROS Constitutional: no chills, aches, sweats or fever Respiratory: no sob,cough, sputum, or wheezing Cardiac: no chest pain, palpitations, edema, orthopnea or lightheadedness GI: no abdominal pain, nausea, vomiting, diarrhea or constipation : no dysuria or hesitancy Extremities: see HPI Skin: no rash All other systems reviewed and negative Physical Exam Physical Exam: General: no distress Eyes: normal inspection, PERLL Respiratory: chest non tender, clear to auscultation, normal breath sounds, no respiratory distress, no accessory muscle use Cardiac: regular rate and rhythm, no rub or gallop, no murmur, no edema, no jvd GI/: active bowel sounds, no abd pain or tenderness, soft, non distended Extremities: normal range of motion, normal strength, non tender, equal bench mover strength, CN II - XII intact, no drift Neuro/Psych: alert and oriented x 3, normal mood and affect Skin: normal color, dry Results & Data Results & Data ([facility]) Vital Signs (Past 12 Hours) Vital Signs Temp Pulse Resp BP Pulse Ox 05/05/20 07:12 37.2 C 87 18 132/73 95 05/04/20 23:43 36.6 C 104 H 16 96/58 L 91 PG Care Time/CCT Total # of Minutes Spent Total Time Spent with Patient: Total time spent is greater than 50% in coordination of care (as documented) at patient's floor/unit and/or counseling patient: Coding Level of Care Code 78879 Subseq Hosp Care Lvl 3 Diagnoses Acute metabolic encephalopathy G93.41 Sepsis A41.9; R65.20; G93.40 Sepsis acute organ dysfunction status: with acute organ dysfunction Sepsis type: sepsis due to unspecified organism Severe sepsis acute organ dysfunction type: encephalopathy Severe sepsis shock status: without septic shock Colitis K52.9 Parkinson disease G20 Diabetes mellitus E11.9 Fall W19.XXXA Encounter type: initial encounter Dementia F03.91 Dementia behavioral disturbance: with behavioral disturbance Dementia type: unspecified type Ambulatory dysfunction R26.2 Hypertension I10 Hypertension type: essential hypertension Hypomagnesemia E83.42 Bullous pemphigoid L12.0 Joint pain M25.50 Left hand pain M79.642 DVT prophylaxis Z29.9 (1) Dementia Dementia behavioral disturbance: with behavioral disturbance Dementia type: unspecified type Qualified Code(s): F03.91 - Unspecified dementia with behavioral disturbance (2) Sepsis Sepsis acute organ dysfunction status: with acute organ dysfunction Sepsis type: sepsis due to unspecified organism Severe sepsis acute organ dysfunction type: encephalopathy Severe sepsis shock status: without septic shock Qualified Code(s): A41.9 - Sepsis, unspecified organism; R65.20 - Severe sepsis without septic shock; G93.40 - Encephalopathy, unspecified (3) Hypertension Hypertension type: essential hypertension Qualified Code(s): I10 - Essential (primary) hypertension (4) Fall Encounter type: initial encounter Qualified Code(s): W19.XXXA - Unspecified fall, initial encounter
[2020-05-05] MEDS: SODIUM CHLORIDE 0.9% 1000ML 1,000 ML IV SCH (11:19)
--- NOTE | 2020-05-05 12:54 | Neurology Progress Note ---
Date of Service May 05, 2020 Assessment & Plan (1) Colitis: (2) Altered mental status: Stephie Nicole is an 80 yo woman w/ PMH of Parkinson's disease c/b dementia, DM, HTN, prolonged QT interval, bullous pemphigoid on chronic topical steroids/imuran and recent sepsis secondary to Pseudomonas bacteremia and E. coli UTI who p/t [facility] after fever, confusion and agitation. # AMS: likely multifactorial in the setting of recent sepsis, current colitis, and baseline dementia. B12/TSH WNL. -Delirium precautions, lights on during day, lights off at night, avoid benzos and opiates as able -Given active infection, continue holding Imuran # Parkinson's disease: There is concern that she is having dyskinesias, however none was noted on examination today. She denies any wearing off or dyskinesias, she is a poor historian. She is currently on Stalevo, long-acting Sinemet at night and amantadine. From available records, she previously saw Dr. Benavidez before transitioning to [facility] neurology but there are no recent notes available. -Continue Sinemet CR and slowly weaning off Stalevo as follows: sinemet CR 50/200mg 2 tabs at 7am/1pm and 1 tab at 7pm. Take entacapone 200mg tid with each sinemet CR dose. - continue amantadine 100mg bid - should follow up with her [facility] neurologist if she is still going to them, otherwise, should schedule an appointment with [facility] neurology - she may need referral for PEG tube/duopa vs transitioning to sinemet ER (this would be on the outpatient side) Thank you for this interesting consult. Plan of care discussed with primary team. Please call or text questions. (3) Parkinson disease: Admission and Anticipated Discharge Date Admission Date: May 02, 2020 Subjective NAEs overnight. Reports that she is doing better. Noted to have significant dyskinesias towards the end of her morning dose when examined this morning. Review of Systems Review of Systems: Unobtainable due to cognitive status Results & Data ([facility]) Vital Signs (Past 12 Hours) Vital Signs Temp Pulse Resp BP Pulse Ox 05/05/20 07:12 37.2 C 87 18 132/73 95 Exam (Neuro) Physical Exam: General Exam: GEN: NAD, sitting in bed. HEENT: No conjunctival injection, no rhinorrhea. CV: RRR, no peripheral edema PULM: Nonlabored respirations on room air. Neuro Exam: MS: Awake and Alert. Oriented to person, not place or date. Speech fluent though sparse, without dysarthria or paraphasic errors. Language intact including naming, comprehension, repetition. Cognition and memory grossly impaired. Inattentive. No neglect. CN: Visual oneal full. No extinction to double simultaneous stimuli. No optic disc edema on fundoscopic exam. PERRLA OU. EOMI without nystagmus. Facial sensation intact to LT. Facial muscles full and symmetric. Hearing intact to conversation. Uvula midline with symmetric palatal elevation. Shoulder shrug normal. Tongue midline. MOTOR: Normal bulk and tone, no clear cogwheeling noted. No pronator drift. BUE strength 5/5 at deltoids, biceps, triceps, and hand grasp bilaterally. BLE strength 4-/5 at iliopsoas, 4/5 hamstrings, 4/5 quadriceps, 4/5 tibialis anterior, and 5/5 gastrocnemius bilaterally. No rest or action tremor noted. +dyskinesias REFLEXES: 1+ at biceps, triceps, brachioradialis, absent patella and absent Achilles bilaterally. Flexor plantar responses bilaterally. SENSORY: Intact to LT without extinction to double simultaneous stimuli. Vibration diminished in BLEs up to the mid-thighs. COORDINATION: No dysmetria or ataxia on [id number] bilaterally. Normal finger taps bilaterally. GAIT: deferred given physical status PG Care Time/CCT Total # of Minutes Spent Total Time Spent with Patient: Total time spent is greater than 50% in coordination of care (as documented) at patient's floor/unit and/or counseling patient: Coding Level of Care Code 50253 Subseq Hosp Care Lvl 3 Diagnoses Colitis K52.9 Altered mental status R41.0 Altered mental status type: disorientation Parkinson disease G20 (1) Altered mental status Altered mental status type: disorientation Qualified Code(s): R41.0 - Disorientation, unspecified
[2020-05-05] MEDS: ENOXAPARIN INJ 40 MG/0.4 ML SYR SQ SCH (15:13)
[2020-05-05] MEDS ORDERED: LORazepam 0.25 MG/0.5 ML VIAL IV PRN (15:20)
--- NOTE | 2020-05-05 17:13 | XRay Report ---
XR hand LT min 3V routine CLINICAL HISTORY: pain, history of fall COMPARISON: None FINDINGS: Alignment of the left hand is anatomic. No acute fracture is identified. There is severe o steoarthritis within multiple articulations of the left hand, most pronounced at the second PIP joint . Moderate osteoarthritis of the left first carpometacarpal joint is noted. IMPRESSION: 1. No acute fracture or dislocation within the left hand. 2. 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 ACT 112: Negative or not required by law. Electronically signed by: Cyril Ortega M.D. 05/05/2020 5:12 PM
[2020-05-06] MEDS: SODIUM CHLORIDE 0.9% 1000ML 1,000 ML IV SCH ×2 (00:10→13:14)
[2020-05-06] MEDS: PIPERACILLIN/TAZOBACTAM 3.375 GM in DEXTROSE 5% 100 ML IV SCH ×3 (04:08→20:40)
[2020-05-06] MEDS: ONDANSETRON INJ 2 MG/ML 2 ML VIAL IV PRN (05:49)
[2020-05-06] MEDS: ENTACAPONE 200 MG TAB PO SCH ×3 (06:08→19:11)
[2020-05-06 06:24] LABS: Basophils # (auto) 0.02 K/uL (0-0.2); Basophils % (auto) 0.2 %; Eosinophils # (auto) 0.33 K/uL (0-0.5); Eosinophils % (auto) 3.1 %; Hematocrit (blood only) 32.4 % (37-47); Hemoglobin 10.9 g/dL (12.0-16.0); Immature Granulocytes # (auto) 0.02 K/uL (0.00-0.02); Immature Granulocytes % (auto) 0.2 %; Lymphocytes # (auto) 1.37 K/uL (1.2-3.4); Lymphocytes % (auto) 12.9 %; Mean Corpuscular Hemoglobin 32.2 pg (25-34); Mean Corpuscular Hgb Conc 33.6 g/dL (32-36); Mean Corpuscular Volume 95.9 fL (80-100); Mean Platelet Volume 9.5 fL (7.4-10.4); Monocytes # (auto) 0.86 K/uL (0.11-0.59); Monocytes % (auto) 8.1 %; Neutrophils # (auto) 8.04 K/uL (1.4-6.5); Neutrophils % (auto) 75.5 %; Platelet Count 365 K/uL (130-400); RDW Standard Deviation 52.4 fL (36.4-46.3); Red Blood Count 3.38 M/uL (4.2-5.4); White Blood Count 10.64 K/uL (4.8-10.8)
[2020-05-06 06:47] LABS: BUN Creatinine Ratio 9.5 (10-20); Calcium 8.9 mg/dl (8.5-10.1); Creatinine Clr Calc Pharmacy 81.1 ml/min; Est GFR (African American) 99.1; Est GFR (Non-African American) 85.5; Potassium 3.7 mmol/L (3.5-5.1)
[2020-05-06] MEDS ORDERED: CARBIDOPA/LEVODOPA 50/200MG EXT REL TAB PO SCH (07:00)
[2020-05-06] MEDS: CARBIDOPA/LEVODOPA 50/200MG EXT REL TAB PO SCH (07:14)
[2020-05-06] MEDS ORDERED: LORazepam 0.5 MG/1 ML VIAL IV STA ×2 (08:18→08:36)
[2020-05-06] MEDS: INSULIN ASPART 100 UNITS/ML 3 ML PEN SC SCH ×4 (09:13→20:42)
[2020-05-06] MEDS ORDERED: LORazepam 0.5 MG/1 ML VIAL IV ONE (09:15)
[2020-05-06] MEDS: LIDOCAINE 5% 1 PATCH TD SCH (09:35)
[2020-05-06] MEDS: MULTIVITAMIN TAB PO SCH (09:43)
[2020-05-06] MEDS: ASPIRIN 81 MG ECTAB PO SCH (09:43)
[2020-05-06] MEDS: AMANTADINE HCL 100 MG CAPSULE PO SCH ×2 (09:43→20:41)
--- NOTE | 2020-05-06 16:20 | Neurology Progress Note ---
Date of Service May 06, 2020 Assessment & Plan (1) Colitis: (2) Altered mental status: Stephie Nicole is an 80 yo woman w/ PMH of Parkinson's disease c/b dementia, DM, HTN, prolonged QT interval, bullous pemphigoid on chronic topical steroids/imuran and recent sepsis secondary to Pseudomonas bacteremia and E. coli UTI who p/t [facility] after fever, confusion and agitation. # AMS: likely multifactorial in the setting of recent sepsis, current colitis, and baseline dementia. B12/TSH WNL. -Delirium precautions, lights on during day, lights off at night, avoid benzos and opiates as able -Given active infection, continue holding Imuran # Parkinson's disease: There is concern that she is having dyskinesias, however none was noted on examination today. She denies any wearing off or dyskinesias, she is a poor historian. She is currently on Stalevo, long-acting Sinemet at night and amantadine. From available records, she previously saw Dr. Benavidez before transitioning to [facility] neurology but there are no recent notes available. -PD meds: sinemet CR 50/200mg 2 tabs at 7am/7pm. Take entacapone 200mg tid (will decrease to bid dosing on 05/11/20) - continue amantadine 100mg bid - start buspar 5mg bid to help with excessive acute dyskinesias - should follow up with her [facility] neurologist if she is still going to them, otherwise, should schedule an appointment with [facility] neurology - she may need referral for PEG tube/duopa vs transitioning to sinemet ER (this would be on the outpatient side) Thank you for this interesting consult. Plan of care discussed with primary team. Please call or text questions. Will continue to follow. (3) Parkinson disease: Admission and Anticipated Discharge Date Admission Date: May 02, 2020 Subjective Found to have worsening dyskinesias this morning and moved to higher level care for closer monitoring. Was asleep this afternoon or first examined with no abnormal movements. When she woke up, had very minimal dyskinesia in her shoulder and legs. She reports that she was about 50% of her baseline and has mild numbness in her hands (left > right). Review of Systems Review of Systems: Unobtainable due to cognitive status Results & Data ([facility]) Vital Signs (Past 12 Hours) Vital Signs Temp Pulse Pulse Resp BP BP Pulse Ox 05/06/20 15:33 89 28 H 143/76 H 96 05/06/20 11:49 36.5 C 91 H 18 126/71 92 05/06/20 10:33 117 H 24 105/65 94 05/06/20 09:11 111 H 22 147/65 H 95 Exam (Neuro) Physical Exam: General Exam: GEN: NAD, sitting in bed. HEENT: No conjunctival injection, no rhinorrhea. CV: RRR, no peripheral edema PULM: Nonlabored respirations on room air. Neuro Exam: MS: Awake and Alert. Oriented to person, not place or date. Speech fluent though sparse, without dysarthria or paraphasic errors. Language intact including naming, comprehension, repetition. Cognition and memory grossly impaired. Inattentive. No neglect. CN: Visual oneal full. No extinction to double simultaneous stimuli. No optic disc edema on fundoscopic exam. PERRLA OU. EOMI without nystagmus. Facial sensation intact to LT. Facial muscles full and symmetric. Hearing intact to conversation. Uvula midline with symmetric palatal elevation. Shoulder shrug normal. Tongue midline. Occasional movements that looked like tardive dyskinesia. MOTOR: Normal bulk and tone, + cogwheeling noted. No pronator drift. BUE strength 5/5 at deltoids, biceps, triceps, and hand grasp bilaterally. BLE strength 4-/5 at iliopsoas, 4/5 hamstrings, 4/5 quadriceps, 4/5 tibialis anterior, and 5/5 gastrocnemius bilaterally. No rest or action tremor noted. +dyskinesias REFLEXES: 1+ at biceps, triceps, brachioradialis, absent patella and absent Achilles bilaterally. Flexor plantar responses bilaterally. SENSORY: Intact to LT without extinction to double simultaneous stimuli. Vibrat ion diminished in BLEs up to the mid-thighs. COORDINATION: No dysmetria or ataxia on [id number] bilaterally. Decreased amplitude of finger taps bilaterally (left more than right. GAIT: deferred given physical status PG Care Time/CCT Total # of Minutes Spent Total Time Spent with Patient: Total time spent is greater than 50% in coordination of care (as documented) at patient's floor/unit and/or counseling patient: Coding Level of Care Code 99024 Subseq Hosp Care Lvl 3 Diagnoses Colitis K52.9 Altered mental status R41.0 Altered mental status type: disorientation Parkinson disease G20 (1) Altered mental status Altered mental status type: disorientation Qualified Code(s): R41.0 - Disorientation, unspecified
--- NOTE | 2020-05-06 16:21 | Hospitalist Progress Note ---
Date of Service May 06, 2020 Assessment & Plan (1) Acute metabolic encephalopathy: Presented with confusion, agitation, and "thrashing" of her arms and legs most of the day for the 3 days prior to admission as per daughter. She was febrile upon arrival with a possible source of colitis for infection. Alert and oriented today with severe dyskinesia TSH wnl, B12 high (2) Sepsis: Patient now with 3 inpatient stays in the last month or so. The first was for a left lower lobe pneumonia and ESBL E. coli UTI. She was discharged home on doxycycline and Macrobid at that time. She then returned with altered mental status and was found to have a Pseudomonas bacteremia. Her urine at that time did not show evidence of infection, and the source of the Pseudomonas was not found. Nonetheless, she was sent to home to finish out a 14-day course of Cipro. She returned for this admission 5 days later with recurrent fever and altered mental status as well as nausea and vomiting. -CT abdomen/pelvis completed showing nonspecific colitis of the proximal descending colon, and mild biliary ductal dilatation -Gallbladder ultrasound was performed which showed moderately dilated gallbladder and mildly increased biliary ductal dilatation, CBD 1.1 cm, no pericholecystic fluid or gallbladder wall thickening HIDA scan was completed which showed no evidence of acute cholecystitis -Tmax 38.1 on arrival, WBC = 10.97, lactic acid =1.2. Remains afebrile now and leukocytosis is resolved after being treated with IV Zosyn LFTs are normal COVID-19 test was negative Blood cultures were drawn-no growth to date It is possible that she has a GI source of her previous Pseudomonas bacteremia- the colitis is possibly the source -Per GI, patient refused invasive workup and does not want a colonoscopy. I discussed with patient and she is quite adamant that she does not want one. Her daughter reports she has never had one in the past. - GI recommends 10 days abx -Continue IV Zosyn which covers for previous Pseudomonas bacteremia as well as other GI pathogens -Appreciate general surgery consultation-no surgical need at this time -advance diet as tolerated per GI (3) Colitis: suspected infectious colitis Continue IV Zosyn Consult GI - recommendations as above (4) Parkinson disease: -History of such, now with severe dyskinesias which her daughter had described happening at home as well that resulted in a fall out of bed. Given 1.5 mg Ativan this morning to control movements and give patient the ability to rest. - continue amantadine 100 mg BID, - Neuro consulted - recommend weaning off of Stalevo and converting to long acting Sinemet. Given patient's symptoms today, changed Sinemet CR 50/200mg 2 tabs to bid, keep entacapone at 200mg tid and start Buspar bid. (5) Diabetes mellitus: -ISS with Accu-Cheks AC at bedtime -Holding metformin from home -Last A1c on 04/14 was 6.6 -Sliding scale insulin for now - bsgs acceptable (6) Fall: -PT/OT consults -Fall precautions with Parkinsons - patient is fairly ambulatory with walker at baseline (7) Dementia: - mild, intermittent confusion but the patient is alert and oriented x3 -Supportive care (8) Ambulatory dysfunction: -As above PT/OT (9) Hypertension: Not on medication for this at home, noted as a diagnosis, blood pressures have been normal here (10) Hypomagnesemia: - Mag 1.6 on admission, replaced and resolved (11) Bullous pemphigoid: Hold azathioprine while being treated for infection (12) Joint pain: Continue lidoderm for left shoulder pain. (13) Left hand pain: Persistent - Xray without fracture, shows arthritis (14) DVT prophylaxis: - teds Lovenox SQ CODE: DNR/DNI Dispo: Continued stay, referral sent to [facility] unfortunately they cannot take patient with IV abx, possibly to [facility] but at this time patient is not medically stable for discharge. Admission and Anticipated Discharge Date Admission Date: May 02, 2020 Subjective Ms. Nicole was having severe dyskinesias in all four limbs this morning, flailing such that she accidentally hit herself in the the head and also was coming close to rolling out of bed. She had extra pyramidal type movements with lip smacking. She was alert and oriented through this, able to answer in 1 or two word answers. She was also at times having trouble clearing secretions and catching in her throat and then coughing. 1.5 mg Ativan was given and patient's symptoms calmed but she continues to have intermittent movements. She reported generalized pain and had some nausea over the evening but otherwise does not report other symptoms. Unable to perform full ROS due to acute symptoms. Physical Exam Physical Exam: General: no distress Eyes: normal inspection, PERLL Respiratory: chest non tender, clear to auscultation, normal breath sounds, no respiratory distress, no accessory muscle use Cardiac: regular rate and rhythm, no rub or gallop, no murmur, no edema, no jvd GI/: active bowel sounds, no abd pain or tenderness, soft, non distended Extremities: normal range of motion, normal strength, non tender Neuro/Psych: alert and oriented x 3, dyskinesias Skin: normal color, dry, open areas on belly as patient picks at her skin Results & Data Results & Data ([facility]) Vital Signs (Past 12 Hours) Vital Signs Temp Pulse Pulse Resp BP BP Pulse Ox 05/06/20 15:33 89 28 H 143/76 H 96 05/06/20 11:49 36.5 C 91 H 18 126/71 92 05/06/20 10:33 117 H 24 105/65 94 05/06/20 09:11 111 H 22 147/65 H 95 PG Care Time/CCT Total # of Minutes Spent Total Time Spent with Patient: Total time spent is greater than 50% in coordination of care (as documented) at patient's floor/unit and/or counseling patient: Coding Level of Care Code 67023 Subseq Hosp Care Lvl 3 Diagnoses Acute metabolic encephalopathy G93.41 Sepsis A41.9; R65.20; G93.40 Sepsis acute organ dysfunction status: with acute organ dysfunction Sepsis type: sepsis due to unspecified organism Severe sepsis acute organ dysfunction type: encephalopathy Severe sepsis shock status: without septic shock Colitis K52.9 Parkinson disease G20 Diabetes mellitus E11.9 Fall W19.XXXA Encounter type: initial encounter Dementia F03.91 Dementia behavioral disturbance: with behavioral disturbance Dementia type: unspecified type Ambulatory dysfunction R26.2 Hypertension I10 Hypertension type: essential hypertension Hypomagnesemia E83.42 Bullous pemphigoid L12.0 Joint pain M25.50 Left hand pain M79.642 DVT prophylaxis Z29.9 (1) Sepsis Sepsis acute organ dysfunction status: with acute organ dysfunction Sepsis type: sepsis due to unspecified organism Severe sepsis acute organ dysfunction type: encephalopathy Severe sepsis shock status: without septic shock Qualified Code(s): A41.9 - Sepsis, unspecified organism; R65.20 - Severe sepsis without septic shock; G93.40 - Encephalopathy, unspecified (2) Fall Encounter type: initial encounter Qualified Code(s): W19.XXXA - Unspecified fall, initial encounter (3) Dementia Dementia behavioral disturbance: with behavioral disturbance Dementia type: unspecified type Qualified Code(s): F03.91 - Unspecified dementia with behavior al disturbance (4) Hypertension Hypertension type: essential hypertension Qualified Code(s): I10 - Essential (primary) hypertension
[2020-05-06] MEDS: ENOXAPARIN INJ 40 MG/0.4 ML SYR SQ SCH (16:57)
[2020-05-07] MEDS: SODIUM CHLORIDE 0.9% 1000ML 1,000 ML IV SCH ×2 (00:18→12:55)
[2020-05-07] MEDS: PIPERACILLIN/TAZOBACTAM 3.375 GM in DEXTROSE 5% 100 ML IV SCH ×3 (04:31→20:15)
[2020-05-07] MEDS: ENTACAPONE 200 MG TAB PO SCH ×3 (06:06→20:16)
[2020-05-07 07:32] LABS: Hematocrit (blood only) 33.9 % (37-47); Hemoglobin 10.9 g/dL (12.0-16.0); Mean Corpuscular Hemoglobin 31.1 pg (25-34); Mean Corpuscular Hgb Conc 32.2 g/dL (32-36); Mean Corpuscular Volume 96.9 fL (80-100); Mean Platelet Volume 9.6 fL (7.4-10.4); Platelet Count 350 K/uL (130-400); RDW Coefficient of Variation 15.2 % (11.5-14.5); RDW Standard Deviation 53.1 fL (36.4-46.3); White Blood Count 6.14 K/uL (4.8-10.8)
[2020-05-07 08:02] LABS: Albumin Level 2.7 gm/dl (3.4-5.0); BUN Creatinine Ratio 9.3 (10-20); Calcium 8.5 mg/dl (8.5-10.1); Creatinine Clr Calc Pharmacy 99.3 ml/min; Est GFR (African American) 105.9; Est GFR (Non-African American) 91.4; Potassium 3.2 mmol/L (3.5-5.1)
[2020-05-07 08:05] LABS: Albumin Globulin Ratio 0.8 (0.9-2); Bilirubin,Total 0.4 mg/dl (0.2-1); Globulin 3.6 gm/dl (2.5-4.0); Total Protein 6.3 gm/dl (6.4-8.2)
[2020-05-07] MEDS ORDERED: PHARMACY GLYCEMIC MGMT CONSULT PRN (08:09)
[2020-05-07] MEDS: LIDOCAINE 5% 1 PATCH TD SCH (08:27)
[2020-05-07] MEDS: ASPIRIN 81 MG ECTAB PO SCH (08:27)
[2020-05-07] MEDS: MULTIVITAMIN TAB PO SCH (08:28)
[2020-05-07] MEDS: AMANTADINE HCL 100 MG CAPSULE PO SCH ×2 (08:28→20:18)
[2020-05-07] MEDS: INSULIN ASPART 100 UNITS/ML 3 ML PEN SC SCH ×4 (08:29→20:18)
[2020-05-07] MEDS: INSULIN GLARGINE SOLOSTAR 100 UNITS/ML 3 ML PEN SC SCH (08:30)
[2020-05-07] MEDS ORDERED: POTASSIUM CHLORIDE 20 MEQ/15 ML UDC PO ONE ×2 (09:45→12:30)
--- NOTE | 2020-05-07 13:42 | Pharmacy Report ---
Glycemic Control Consultation - Date of Service May 07, 2020 - Scope Scope: Glycemic Pharmacist consulted for glycemic control and to write orders per [facility] inpatient glycemic control protocol. - Objective Weight: 82.2 kg Accuchecks BSG (last 24hrs): 05/06/20 05/06/20 05/06/20 16:23 20:14 20:16 Glucose POC Glucose 149 H 309 H* 208 H 05/06/20 05/07/20 05/07/20 20:21 07:12 07:20 Glucose 151 H POC Glucose 222 H 167 H 05/07/20 11:32 Glucose POC Glucose 156 H Laboratory Data (last 24hrs): 05/07/20 07:12 Potassium 3.2 L Carbon Dioxide 27 Anion Gap 6.0 Creatinine 0.49 L Est Cr Clr Drug Dosing 99.3 HbA1c: 6.6% on 04/14/2020 - Recent Pertinent Medications Outpatient Anti-diabetic Regimen: * Metformin 1,000 mg BID * A1c = 6.6 % 04/20/2020 The patient is currently receiving: * Correctional Insulin: Novolog Correction per scale ACHS Goal Range: Low 110 mg/dL - High 160 mg/dL Correction Factor: 30 mg/dL/unit * Prandial insulin: Per carb ratio of 1 unit per 10 grams CHO consumed * Oral Agents: Risk Factors for Insulin Resistance: * Steroids: * Infection: * Pressors: * IVF: * Recent Surgery * Diet: T2DM * Mechanical Ventilation: - Assessment & Plan Assessment & Plan: ASSESSMENT: * Ms. Nicole has a PMH including Parkinson's disease, dementia, type II DM, HTN, prolonged QT interval, bullous pemphigoid on chronic topical steroids/imuran and recent sepsis secondary to Pseudomonas bacteremia and E. coli UTI, discharged 04/26 on ciprofloxacin. Patient presented with fever, confusion, agitation. Patient is currently being treated with zosyn for possible colitis, recently transferred to ICU with worsening dyskinesias * BSGs have been decently controlled, with some elevation into the 200s, it appears this occurs mainly following dinner * Fasting has been trending upwards, 212 on 05/06, 167 this AM, will start basal insulin conservatively. * Will tighten carb ratio with dinner slighlty, as nighttime BSGs seem to be the main issue PLAN FOR INPATIENT GLYCEMIC CONTROL: * Holding outpatient oral diabetes medications * Basal insulin * Lantus 0/5 units SQ BID * Bolus insulin * NovoLog per scale ACHS or Q6hrs while NPO * Goal Range: Low 110 mg/dL - High 160 mg/dL * Correction Factor: 30 mg/dL/unit * Nutritional / Prandial insulin per carb ratio of 1 unit per 10 grams CHO consumed; 8 grams CHO consumed with dinner * Please note that the plan above was derived based on current level of insulin resistance and hospital stress. These recommendations are appropriate for inpatient admission only. Plan of care upon discharge will need to be reassessed to avoid potential outpatient hypo/hyperglycemia. Thank you.
--- NOTE | 2020-05-07 14:42 | XCELERA ---
[id number]
--- NOTE | 2020-05-07 16:02 | Hospitalist Progress Note ---
Date of Service May 07, 2020 Assessment & Plan (1) Acute metabolic encephalopathy: Presented with confusion, agitation, and "thrashing" of her arms and legs most of the day for the 3 days prior to admission as per daughter. She was febrile upon arrival with a possible source of colitis for infection. Alert and oriented today, no further dyskinesias noted TSH wnl, B12 high (2) Sepsis: Patient now with 3 inpatient stays in the last month or so. The first was for a left lower lobe pneumonia and ESBL E. coli UTI. She was discharged home on doxycycline and Macrobid at that time. She then returned with altered mental status and was found to have a Pseudomonas bacteremia. Her urine at that time did not show evidence of infection, and the source of the Pseudomonas was not found. Nonetheless, she was sent to home to finish out a 14-day course of Cipro. She returned for this admission 5 days later with recurrent fever and altered mental status as well as nausea and vomiting. -CT abdomen/pelvis completed showing nonspecific colitis of the proximal descending colon, and mild biliary ductal dilatation -Gallbladder ultrasound was performed which showed moderately dilated gallbladder and mildly increased biliary ductal dilatation, CBD 1.1 cm, no pericholecystic fluid or gallbladder wall thickening HIDA scan was completed which showed no evidence of acute cholecystitis -Tmax 38.1 on arrival, WBC = 10.97, lactic acid =1.2. Remains afebrile now and leukocytosis is resolved after being treated with IV Zosyn LFTs are normal COVID-19 test was negative Blood cultures were drawn-no growth to date It is possible that she has a GI source of her previous Pseudomonas bacteremia- the colitis is possibly the source -Per GI, patient refused invasive workup and does not want a colonoscopy. I discussed with patient and she is quite adamant that she does not want one. Her daughter reports she has never had one in the past. - GI recommends 10 days abx -Continue IV Zosyn which covers for previous Pseudomonas bacteremia as well as other GI pathogens -Appreciate general surgery consultation-no surgical need at this time -advance diet as tolerated per GI (3) Colitis: suspected infectious colitis Continue IV Zosyn Consult GI - recommendations as above (4) Parkinson disease: -History of such, with severe dyskinesias on 05/04- which her daughter had described happening at home as well that resulted in a fall out of bed. On 05/06 they were severe enough that patient was a risk to herself as she was accidentally hitting herself in the head and pitching herself around the bed. She also seemed less able to protect her airway, catching in her throat and then spluttering and coughing. Required 1.5 mg Ativan05/06 to control movements and give patient the ability to rest which succeeded somewhat but with relapses of movement throughout the day - continue amantadine 100 mg BID, - Neuro consulted - recommend weaning off of Stalevo and converting to long acting Sinemet. Given patient's symptoms 05/06, changed Sinemet CR 50/200mg 2 tabs to bid, keep entacapone at 200mg tid and Buspar bid was initiated as this can help with dyskinesias. Patient with significant improvement on 05/07. (5) Diabetes mellitus: -ISS with Accu-Cheks AC at bedtime -Holding metformin from home -Last A1c on 04/14 was 6.6 -Sliding scale insulin for now - bsgs acceptable (6) Fall: -PT/OT consults -Fall precautions with Parkinsons - patient is fairly ambulatory with walker at baseline (7) Dementia: - mild, intermittent confusion but the patient is alert and oriented x3 -Supportive care (8) Ambulatory dysfunction: -As above PT/OT (9) Hypertension: Not on medication for this at home, noted as a diagnosis, blood pressures have been normal here (10) Hypomagnesemia: - Mag 1.6 on admission, replaced and resolved (11) Bullous pemphigoid: Hold azathioprine while being treated for infection (12) Joint pain: Continue lidoderm for left shoulder pain. (13) Left hand pain: Persistent - Xray without fracture, shows arthritis (14) Paroxysmal atrial fibrillation: As seen on telemetry from 12:04 to 12:25 and then returned to sinus rhythm. Her CHADS-Vasc is 54e. Had long discussion with patient about risks and benefits of anticoagulation and that I recommended anticoagulation for her. She declines starting blood thinners at this point. I also discussed with her daughter and that Ms. Nicole did not want to be anticoagulated. Ms. Nicole did say she wanted to think about it more. This could be revisited by her pcp after james mckee. (15) DVT prophylaxis: - teds, Lovenox SQ CODE: DNR/DNI Dispo: Continued stay, referral sent to [facility] unfortunately they cannot take patient with IV abx, possibly to [facility] - patient will likely be medically stable for discharge tomorrow. Per my peer to peer with the insurance physician, authorization will need to be resubmitted if she is stable as they could not make a determination while she was acutely ill and unable to participate in therapy. Admission and Anticipated Discharge Date Admission Date: May 02, 2020 Subjective Ms. Nicole is much more comfortable today, no dyskinesias noted either time I was bedside this morning or this afternoon. She is having generalized pain and aches but otherwise has no complaints. ROS Constitutional: no chills, sweats or fever Respiratory: no sob,cough, sputum, or wheezing Cardiac: no chest pain, palpitations, edema, orthopnea or lightheadedness GI: no abdominal pain, nausea, vomiting, diarrhea or constipation : no dysuria or hesitancy Extremities: see HPI Skin: no rash All other systems reviewed and negative Physical Exam Physical Exam: General: no distress Eyes: normal inspection, PERLL Respiratory: chest non tender, clear to auscultation, normal breath sounds, no respiratory distress, no accessory muscle use Cardiac: regular rate and rhythm, no rub or gallop, no murmur, no edema, no jvd GI/: active bowel sounds, no abd pain or tenderness, soft, non distended Extremities: normal range of motion, normal strength, non tender Neuro/Psych: alert and oriented x 3, normal mood and affect Skin: normal color, dry Results & Data Results & Data ([facility]) Vital Signs (Past 12 Hours) Vital Signs Temp Pulse Pulse Pulse Resp BP BP 05/07/20 11:30 36.5 C 84 19 158/77 H 05/07/20 08:00 80 05/07/20 07:59 36.6 C 79 21 155/72 H 05/07/20 04:00 36.7 C 79 22 140/75 Pulse Ox 05/07/20 11:30 95 05/07/20 08:00 05/07/20 07:59 98 05/07/20 04:00 94 PG Care Time/CCT Total # of Minutes Spent Total Time Spent with Patient: Total time spent is greater than 50% in coordination of care (as documented) at patient's floor/unit and/or counseling patient: Coding Level of Care Code 32085 Subseq Hosp Care Lvl 3 Diagnoses Acute metabolic encephalopathy G93.41 Sepsis A41.9; R65.20; G93.40 Sepsis acute organ dysfunction status: with acute organ dysfunction Sepsis type: sepsis due to unspecified organism Severe sepsis acute organ dysfunction type: encephalopathy Severe sepsis shock status: without septic shock Colitis K52.9 Parkinson disease G20 Diabetes mellitus E11.9 Fall W19.XXXA Encounter type: initial encounter Dementia F03.91 Dementia behavioral disturbance: with behavioral disturbance Dementia type: unspecified type Ambulatory dysfunction R26.2 Hypertension I10 Hypertension type: essential hypertension Hypomagnesemia E83.42 Bullous pemphigoid L12.0 Joint pain M25.50 Left hand pain M79.642 Paroxysmal atrial fibrillation I48.0 DVT prophylaxis Z29.9 (1) Sepsis Sepsis acute organ dysfunction status: with acute organ dysfunction Sepsis type: sepsis due to unspecified organism Severe sepsis acute organ dysfunction type: encephalopathy Severe sepsis shock status: without septic shock Qualified Code(s): A41.9 - Sepsis, unspecified organism; R65.20 - Severe sepsis without septic shock; G93.40 - Encephalopathy, unspecified (2) Fall Encounter type: initial encounter Qualified Code(s): W19.XXXA - Unspecified fall, initial encounter (3) Dementia Dementia behavioral disturbance: with behavioral disturbance Dementia type: unspecified type Qualified Code(s): F03.91 - Unspecified dementia with behavioral disturbance (4) Hypertension Hypertension type: essential hypertension Qualified Code(s): I10 - Essential (primary) hypertension
--- NOTE | 2020-05-07 16:32 | Neurology Progress Note ---
Date of Service May 07, 2020 Assessment & Plan (1) Colitis: (2) Altered mental status: Stephie Nicole is an 80 yo woman w/ PMH of Parkinson's disease c/b dementia, DM, HTN, prolonged QT interval, bullous pemphigoid on chronic topical steroids/imuran and recent sepsis secondary to Pseudomonas bacteremia and E. coli UTI who p/t [facility] after fever, confusion and agitation. # AMS: likely multifactorial in the setting of recent sepsis, current colitis, and baseline dementia. B12/TSH WNL. -Delirium precautions, lights on during day, lights off at night, avoid benzos and opiates as able -Given active infection, continue holding Imuran # Parkinson's disease: She looks much better today since dropping the lunch dose and starting buspar. From available records, she previously saw Dr. Benavidez before transitioning to [facility] neurology but there are no recent notes available. -PD meds: continue sinemet CR 50/200mg 2 tabs at 7am/7pm. Take entacapone 200mg tid (will decrease to bid dosing on 05/11/20) - continue amantadine 100mg bid - start buspar 5mg bid to help with excessive acute dyskinesias - should follow up with her [facility] neurologist if she is still going to them, otherwise, should schedule an appointment with [facility] neurology - she may need referral for PEG tube/duopa vs transitioning to sinemet ER (this would be on the outpatient side) Thank you for this interesting consult. Plan of care discussed with primary team. Please call or text questions. Will continue to follow. (3) Parkinson disease: Admission and Anticipated Discharge Date Admission Date: May 02, 2020 Subjective NAEs overnight. Doing well this afternoon, minimal tremor or dyskinesia. Review of Systems Review of Systems: Unobtainable due to cognitive status Results & Data ([facility]) Vital Signs (Past 12 Hours) Vital Signs Temp Pulse Pulse Pulse Resp BP Pulse Ox 05/07/20 11:30 36.5 C 84 19 158/77 H 95 05/07/20 08:00 80 05/07/20 07:59 36.6 C 79 21 155/72 H 98 Exam (Neuro) Physical Exam: General Exam: GEN: NAD, sitting in bed. HEENT: No conjunctival injection, no rhinorrhea. CV: RRR, no peripheral edema PULM: Nonlabored respirations on room air. Neuro Exam: MS: Awake and Alert. Oriented to person, not place or date. Speech fluent though sparse, without dysarthria or paraphasic errors. Language intact including naming, comprehension, repetition. Cognition and memory grossly impaired. Inattentive. No neglect. CN: Visual oneal full. No extinction to double simultaneous stimuli. No optic disc edema on fundoscopic exam. PERRLA OU. EOMI without nystagmus. Facial sensation intact to LT. Facial muscles full and symmetric. Hearing intact to conversation. Uvula midline with symmetric palatal elevation. Shoulder shrug normal. Tongue midline. Occasional movements that looked like tardive dyskinesia. MOTOR: Normal bulk and tone, + cogwheeling noted. No pronator drift. BUE strength 5/5 at deltoids, biceps, triceps, and hand grasp bilaterally. BLE strength 4-/5 at iliopsoas, 4/5 hamstrings, 4/5 quadriceps, 4/5 tibialis anterior, and 5/5 gastrocnemius bilaterally. No rest or action tremor noted. +dyskinesias REFLEXES: 1+ at biceps, triceps, brachioradialis, absent patella and absent Achilles bilaterally. Flexor plantar responses bilaterally. SENSORY: Intact to LT without extinction to double simultaneous stimuli. Vibration diminished in BLEs up to the mid-thighs. COORDINATION: No dysmetria or ataxia on [id number] bilaterally. Decreased amplitude of finger taps bilaterally (left more than right. GAIT: deferred given physical status PG Care Time/CCT Total # of Minutes Spent Total Time Spent with Patient: Total time spent is greater than 50% in coordination of care (as documented) at patient's floor/unit and/or counseling patient: Coding Level of Care Code 79003 Subseq Hosp Care Lvl 2 Diagnoses Colitis K52.9 Altered mental status R41.0 Altered mental status type: disorientation Parkinson disease G20 (1) Altered mental status Altered mental status type: disorientation Qualified Code(s): R41.0 - Disorientation, unspecified
[2020-05-07] MEDS: ENOXAPARIN INJ 40 MG/0.4 ML SYR SQ SCH (17:19)
[2020-05-07] MEDS ORDERED: INSULIN GLARGINE SOLOSTAR 100 UNITS/ML 3 ML PEN SC ONE (21:00)
[2020-05-08] MEDS: PIPERACILLIN/TAZOBACTAM 3.375 GM in DEXTROSE 5% 100 ML IV SCH ×3 (03:34→21:05)
[2020-05-08] MEDS: AMANTADINE HCL 100 MG CAPSULE PO SCH ×2 (08:30→19:44)
[2020-05-08] MEDS: ASPIRIN 81 MG ECTAB PO SCH (08:30)
[2020-05-08] MEDS: MULTIVITAMIN TAB PO SCH (08:30)
[2020-05-08] MEDS: ENTACAPONE 200 MG TAB PO SCH ×3 (08:30→19:43)
[2020-05-08] MEDS: LIDOCAINE 5% 1 PATCH TD SCH (08:31)
[2020-05-08] MEDS: INSULIN GLARGINE SOLOSTAR 100 UNITS/ML 3 ML PEN SC SCH (08:32)
[2020-05-08] MEDS: INSULIN ASPART 100 UNITS/ML 3 ML PEN SC SCH ×4 (08:33→20:53)
--- NOTE | 2020-05-08 09:08 | Electroencephalogram ---
EEG Procedure Note Date of Service May 08, 2020 Start / End Times Start Time: 12:46pm End Time: 1:06pm Referring Physician Justyna Dalton History r/o seizures Home Medication List Home Medications Medication Instructions Recorded Confirmed Type acetaminophen [Tylenol Extra 500 mg PO QID PRN 07/14/18 05/01/20 History Strength] amantadine HCl 100 mg PO BID 07/14/18 05/01/20 History aspirin [Aspir-81] 81 mg PO DAILY 07/14/18 05/01/20 History azathioprine [Imuran] 50 mg PO DAILY 07/14/18 05/01/20 History cyanocobalamin (vitamin B-12) 1,000 mcg IM MONTHLY 07/14/18 05/01/20 History tramadol [Ultram] 50 mg PO Q6 PRN 07/14/18 05/01/20 History carbidopa-levodopa 1 tab PO HS 07/18/19 05/01/20 History zmpveqgyi-mfcklqpc-gruxflvupq 2 tab PO QID 04/13/20 05/01/20 History clobetasol 1 applic TOPICAL BID 04/13/20 05/01/20 History hydrocortisone 1 applic TOPICAL BID PRN 04/13/20 05/01/20 History metformin 1,000 mg PO BID 04/13/20 05/01/20 History multivitamin 1 tab PO DAILY 04/13/20 05/01/20 History nystatin-triamcinolone 1 applic TOPICAL BID PRN 04/13/20 05/01/20 History ciprofloxacin HCl [Cipro] 500 mg PO BID #18 tab 04/26/20 05/01/20 Rx Inpatient Medication List Acetaminophen (Tylenol) 650 mg PO Q4H PRN PRN Reason: Moderate Pain Stop: 05/31/20 10:33 Last Admin: 05/04/20 07:44 Dose: 650 mg Documented by: [id number] Amantadine HCl (Symmetrel) 100 mg PO BID [facility] Stop: 05/31/20 10:33 Last Admin: 05/08/20 08:30 Dose: 100 mg Documented by: [id number] Admin: 05/07/20 20:18 Dose: 100 mg Documented by: [id number] Admin: 05/07/20 08:28 Dose: 100 mg Documented by: [id number] Admin: 05/06/20 20:41 Dose: 100 mg Documented by: [id number] Admin: 05/06/20 09:43 Dose: Not Given Documented by: [id number] Admin: 05/05/20 21:09 Dose: 100 mg Documented by: [id number] Admin: 05/05/20 07:27 Dose: 100 mg Documented by: [id number] Admin: 05/04/20 21:09 Dose: 100 mg Documented by: [id number] Admin: 05/04/20 07:44 Dose: 100 mg Documented by: [id number] Admin: 05/03/20 20:42 Dose: 100 mg Documented by: [id number] Admin: 05/03/20 08:03 Dose: 100 mg Documented by: [id number] Admin: 05/02/20 20:19 Dose: 100 mg Documented by: [id number] Admin: 05/02/20 08:02 Dose: 100 mg Documented by: [id number] Admin: 05/01/20 21:07 Dose: 100 mg Documented by: [id number] Admin: 05/01/20 12:40 Dose: 100 mg Documented by: [id number] Aspirin (Ecotrin Ectab) 81 mg PO DAILY [facility] Stop: 05/31/20 10:33 Last Admin: 05/08/20 08:30 Dose: 81 mg Documented by: [id number] Admin: 05/07/20 08:27 Dose: 81 mg Documented by: [id number] Admin: 05/06/20 09:43 Dose: Not Given Documented by: [id number] Admin: 05/05/20 07:27 Dose: 81 mg Documented by: [id number] Admin: 05/04/20 07:44 Dose: 81 mg Documented by: [id number] Admin: 05/03/20 08:03 Dose: 81 mg Documented by: [id number] Admin: 05/02/20 08:03 Dose: 81 mg Documented by: [id number] Admin: 05/01/20 12:41 Dose: 81 mg Documented by: [id number] Buspirone HCl (Buspar) 5 mg PO BID [facility] Stop: 06/05/20 20:59 Last Admin: 05/08/20 08:30 Dose: 5 mg Documented by: [id number] Admin: 05/07/20 20:17 Dose: 5 mg Documented by: [id number] Admin: 05/07/20 08:27 Dose: 5 mg Documented by: [id number] Admin: 05/06/20 20:41 Dose: 5 mg Documented by: [id number] Cyanocobalamin (Vitamin B-12) 1,000 mcg IM Q30D@0900 [facility] Stop: 06/02/20 08:59 Last Admin: 05/03/20 08:04 Dose: 1,000 mcg Documented by: [id number] Enoxaparin Sodium (Lovenox) 40 mg SQ Q24H [facility] Stop: 06/01/20 15:59 Last Admin: 05/07/20 17:19 Dose: 40 mg Documented by: [id number] Admin: 05/06/20 16:57 Dose: 40 mg Documented by: [id number] Admin: 05/05/20 15:13 Dose: 40 mg Documented by: [id number] Admin: 05/04/20 15:49 Dose: 40 mg Documented by: [id number] Admin: 05/03/20 16:44 Dose: 40 mg Documented by: [id number] Admin: 05/02/20 18:25 Dose: 40 mg Documented by: [id number] Entacapone (Comtan) 200 mg PO 0700,1300,1900 [facility] Stop: 06/03/20 12:59 Last Admin: 05/08/20 08:30 Dose: 200 mg Documented by: [id number] Admin: 05/07/20 20:16 Dose: 200 mg Documented by: [id number] Admin: 05/07/20 12:53 Dose: 200 mg Documented by: [id number] Admin: 05/07/20 06:06 Dose: 200 mg Documented by: [id number] Admin: 05/06/20 19:11 Dose: 200 mg Documented by: [id number] Admin: 05/06/20 13:15 Dose: 200 mg Documented by: [id number] Admin: 05/06/20 06:08 Dose: 200 mg Documented by: [id number] Admin: 05/05/20 18:09 Dose: 200 mg Documented by: [id number] Admin: 05/05/20 12:47 Dose: 200 mg Documented by: [id number] Admin: 05/05/20 07:10 Dose: 200 mg Documented by: [id number] Admin: 05/04/20 18:11 Dose: 200 mg Documented by: [id number] Admin: 05/04/20 12:44 Dose: 200 mg Documented by: [id number] Piperacillin Sod/Tazobactam (Sod 3.375 gm/ Dextrose) 115 mls @ 28.75 mls/hr IV Q8H [facility]; Protocol Stop: 05/11/20 11:59 Last Infusion: 05/08/20 08:26 Dose: 0 mls/hr Documented by: [id number] Admin: 05/08/20 03:36 Dose: 28.8 mls/hr Documented by: [id number] Infusion: 05/08/20 03:36 Dose: 28.8 mls/hr Documented by: [id number] Admin: 05/08/20 03:34 Dose: 28.8 mls/hr Documented by: [id number] Infusion: 05/08/20 00:43 Dose: 0 mls/hr Documented by: [id number] Admin: 05/07/20 20:15 Dose: 28.8 mls/hr Documented by: [id number] Infusion: 05/07/20 16:58 Dose: 0 mls/hr Documented by: [id number] Admin: 05/07/20 12:55 Dose: 28.8 mls/hr Documented by: [id number] Infusion: 05/07/20 09:31 Dose: 0 mls/hr Documented by: [id number] Admin: 05/07/20 04:31 Dose: 28.8 mls/hr Documented by: [id number] Infusion: 05/07/20 00:52 Dose: 0 mls/hr Documented by: [id number] Admin: 05/06/20 20:40 Dose: 28.8 mls/hr Documented by: [id number] Infusion: 05/06/20 17:28 Dose: 0 mls/hr Documented by: [id number] Admin: 05/06/20 13:23 Dose: 28.8 mls/hr Documented by: [id number] Infusion: 05/06/20 08:23 Dose: 0 mls/hr Documented by: [id number] Infusion: 05/06/20 07:14 Dose: 28.8 mls/hr Documented by: [id number] Admin: 05/06/20 04:08 Dose: 28.8 mls/hr Documented by: [id number] Infusion: 05/06/20 00:21 Dose: 0 mls/hr Documented by: [id number] Admin: 05/05/20 20:17 Dose: 28.8 mls/hr Documented by: [id number] Infusion: 05/05/20 16:59 Dose: 0 mls/hr Documented by: [id number] Admin: 05/05/20 12:50 Dose: 28.8 mls/hr Documented by: [id number] Infusion: 05/05/20 08:57 Dose: 0 mls/hr Documented by: [id number] Admin: 05/05/20 05:01 Dose: 28.8 mls/hr Documented by: [id number] Infusion: 05/05/20 00:02 Dose: 0 mls/hr Documented by: [id number] Admin: 05/04/20 20:01 Dose: 28.8 mls/hr Documented by: [id number] Infusion: 05/04/20 16:41 Dose: 0 mls/hr Documented by: [id number] Admin: 05/04/20 12:21 Dose: 28.8 mls/hr Documented by: [id number] Infusion: 05/04/20 08:10 Dose: 0 mls/hr Documented by: [id number] Admin: 05/04/20 03:58 Dose: 28.8 mls/hr Documented by: [id number] Infusion: 05/04/20 00:47 Dose: 0 mls/hr Documented by: [id number] Admin: 05/03/20 21:01 Dose: 28.8 mls/hr Documented by: [id number] Infusion: 05/03/20 17:19 Dose: 0 mls/hr Documented by: [id number] Admin: 05/03/20 13:10 Dose: 28.8 mls/hr Documented by: [id number] Infusion: 05/03/20 08:05 Dose: 0 mls/hr Documented by: [id number] Admin: 05/03/20 03:32 Dose: 28.8 mls/hr Documented by: [id number] Infusion: 05/03/20 00:36 Dose: 0 mls/hr Documented by: [id number] Admin: 05/02/20 20:15 Dose: 28.8 mls/hr Documented by: [id number] Infusion: 05/02/20 17:08 Dose: 0 mls/hr Documented by: [id number] Admin: 05/02/20 13:00 Dose: 28.8 mls/hr Documented by: [id number] Infusion: 05/02/20 09:27 Dose: 0 mls/hr Documented by: [id number] Admin: 05/02/20 04:43 Dose: 28.8 mls/hr Documented by: [id number] Infusion: 05/02/20 00:35 Dose: 0 mls/hr Documented by: [id number] Admin: 05/01/20 20:25 Dose: 28.8 mls/hr Documented by: [id number] Infusion: 05/01/20 16:51 Dose: 0 mls/hr Documented by: [id number] Admin: 05/01/20 12:42 Dose: 28.8 mls/hr Documented by: [id number] Insulin Aspart (Novolog Flexpen) 0 units SC TID@0730,1130,2100 [facility] Stop: 06/06/20 20:59 Last Admin: 05/08/20 08:33 Dose: 8 units Documented by: [id number] Cosigned by: [id number] Admin: 05/07/20 20:18 Dose: 3 units Documented by: [id number] Cosigned by: [id number] Insulin Aspart (Novolog Flexpen) 0 units SC DAILY@1630 [facility] Stop: 06/06/20 16:29 Last Admin: 05/07/20 17:21 Dose: 10 units Documented by: [id number] Cosigned by: [id number] Insulin Glargine (Lantus Solostar Pen) [facility] Stop: 06/06/20 08:59 Last Admin: 05/08/20 08:32 Dose: 5 units Documented by: [id number] Cosigned by: [id number] Admin: 05/07/20 08:30 Dose: 5 units Documented by: [id number] Cosigned by: [id number] Lidocaine (Lidoderm 5%) 1 patch TD [facility] Stop: 06/03/20 12:59 Last Admin: 05/08/20 08:31 Dose: 1 patch Documented by: [id number] Admin: 05/07/20 08:27 Dose: 1 patch Documented by: [id number] Admin: 05/06/20 09:35 Dose: 1 patch Documented by: [id number] Admin: 05/05/20 07:25 Dose: 1 patch Documented by: [id number] Admin: 05/04/20 13:35 Dose: 1 patch Documented by: [id number] Miscellaneous (Order Awaiting Action) 1 ea N/A QS [facility] Stop: 05/31/20 15:59 Last Admin: 05/08/20 08:31 Dose: Not Given Documented by: [id number] Admin: 05/08/20 04:10 Dose: Not Given Documented by: [id number] Admin: 05/07/20 16:05 Dose: Not Given Documented by: [id number] Admin: 05/07/20 07:52 Dose: Not Given Documented by: [id number] Admin: 05/06/20 23:45 Dose: Not Given Documented by: [id number] Admin: 05/06/20 10:36 Dose: Not Given Documented by: [id number] Admin: 05/06/20 07:17 Dose: Not Given Documented by: [id number] Admin: 05/06/20 00:11 Dose: Not Given Documented by: [id number] Admin: 05/05/20 15:06 Dose: Not Given Documented by: [id number] Admin: 05/05/20 07:27 Dose: Not Given Documented by: [id number] Admin: 05/05/20 00:00 Dose: Not Given Documented by: [id number] Admin: 05/04/20 15:49 Dose: Not Given Documented by: [id number] Admin: 05/04/20 07:45 Dose: Not Given Documented by: [id number] Admin: 05/03/20 23:58 Dose: Not Given Documented by: [id number] Admin: 05/03/20 16:44 Dose: Not Given Documented by: [id number] Admin: 05/03/20 08:02 Dose: Not Given Documented by: [id number] Admin: 05/03/20 00:36 Dose: Not Given Documented by: [id number] Admin: 05/02/20 16:19 Dose: Not Given Documented by: [id number] Admin: 05/02/20 07:59 Dose: Not Given Documented by: [id number] Admin: 05/01/20 22:55 Dose: Not Given Documented by: [id number] Admin: 05/01/20 15:52 Dose: Not Given Documented by: [id number] Miscellaneous (Remove Lidoderm Patch) 1 ea N/A DAILY@2100 [facility] Stop: 06/03/20 21:59 Last Admin: 05/07/20 21:01 Dose: 1 ea Documented by: [id number] Admin: 05/06/20 20:43 Dose: 1 ea Documented by: [id number] Admin: 05/05/20 21:11 Dose: 1 ea Documented by: [id number] Admin: 05/04/20 21:09 Dose: 1 ea Documented by: [id number] Multivitamins (Multivitamin Tab) 1 tab PO DAILY [facility] Stop: 08/17/20 10:33 Last Admin: 05/08/20 08:30 Dose: 1 tab Documented by: [id number] Admin: 05/07/20 08:28 Dose: 1 tab Documented by: [id number] Admin: 05/06/20 09:43 Dose: Not Given Documented by: [id number] Admin: 05/05/20 07:27 Dose: 1 tab Documented by: [id number] Admin: 05/04/20 07:44 Dose: 1 tab Documented by: [id number] Admin: 05/03/20 08:03 Dose: 1 tab Documented by: [id number] Admin: 05/02/20 08:04 Dose: 1 tab Documented by: [id number] Admin: 05/01/20 12:41 Dose: 1 tab Documented by: [id number] Ondansetron HCl (Zofran) 4 mg IV Q4H PRN PRN Reason: Nausea And Vomiting Stop: 05/31/20 10:33 Last Admin: 05/06/20 05:49 Dose: 4 mg Documented by: [id number] Admin: 05/04/20 19:56 Dose: 4 mg Documented by: [id number] Discontinued Medications Azathioprine (Imuran) 50 mg PO DAILY [facility] Stop: 05/31/20 10:33 Last Admin: 05/03/20 08:03 Dose: 50 mg Documented by: [id number] Admin: 05/02/20 08:03 Dose: 50 mg Documented by: [id number] Admin: 05/01/20 12:41 Dose: 50 mg Documented by: [id number] Buspirone HCl (Buspar) 5 mg PO ONE ONE Stop: 05/06/20 13:18 Last Admin: 05/06/20 15:20 Dose: 5 mg Documented by: [id number] Carbidopa/Levodopa (Sinemet Cr 50/200mg) 1 tab PO HS [facility]EDEE Stop: 05/31/20 20:59 Last Admin: 05/03/20 21:12 Dose: 1 tab Documented by: [id number] Admin: 05/02/20 20:19 Dose: 1 tab Documented by: [id number] Admin: 05/01/20 21:07 Dose: 1 tab Documented by: [id number] Carbidopa/Levodopa (Sinemet 25/100 Mg) 2 tab PO 0830,1130,1630,2030 [facility] Stop: 05/31/20 16:29 Last Admin: 05/04/20 07:44 Dose: 2 tab Documented by: [id number] Admin: 05/03/20 20:42 Dose: 2 tab Documented by: [id number] Admin: 05/03/20 16:44 Dose: 2 tab Documented by: [id number] Admin: 05/03/20 11:39 Dose: 2 tab Documented by: [id number] Admin: 05/03/20 08:02 Dose: 2 tab Documented by: [id number] Admin: 05/02/20 20:19 Dose: 2 tab Documented by: [id number] Admin: 05/02/20 17:07 Dose: 2 tab Documented by: [id number] Admin: 05/02/20 12:50 Dose: 2 tab Documented by: [id number] Admin: 05/02/20 08:03 Dose: 2 tab Documented by: [id number] Admin: 05/01/20 20:27 Dose: 2 tab Documented by: [id number] Admin: 05/01/20 16:52 Dose: 2 tab Documented by: [id number] Carbidopa/Levodopa (Sinemet Cr 50/200mg) 2 tab PO BID@0700,1300 [facility] Stop: 06/03/20 12:59 Last Admin: 05/05/20 18:09 Dose: 2 tab Documented by: [id number] Admin: 05/05/20 12:47 Dose: 2 tab Documented by: [id number] Admin: 05/05/20 07:10 Dose: 2 tab Documented by: [id number] Admin: 05/04/20 12:44 Dose: 2 tab Documented by: [id number] Carbidopa/Levodopa (Sinemet Cr 50/200mg) 1 tab PO DAILY@1900 [facility] Stop: 06/03/20 18:59 Last Admin: 05/06/20 07:14 Dose: Not Given Documented by: [id number] Admin: 05/04/20 18:11 Dose: 1 tab Documented by: [id number] Carbidopa/Levodopa (Sinemet Cr 50/200mg) 2 tab PO NOW ONE Stop: 05/04/20 09:01 Last Admin: 05/04/20 08:57 Dose: 2 tab Documented by: [id number] Carbidopa/Levodopa (Sinemet Cr 50/200mg) 2 tab PO TODAY@0700 [facility] Stop: 05/06/20 07:30 Last Admin: 05/06/20 06:09 Dose: 2 tab Documented by: [id number] Entacapone (Comtan) 400 mg PO 0830,1130,1630,2030 [facility] Stop: 05/31/20 16:29 Last Admin: 05/04/20 07:45 Dose: 400 mg Documented by: [id number] Admin: 05/03/20 20:43 Dose: 400 mg Documented by: [id number] Admin: 05/03/20 16:44 Dose: 400 mg Documented by: [id number] Admin: 05/03/20 11:39 Dose: 400 mg Documented by: [id number] Admin: 05/03/20 08:03 Dose: 400 mg Documented by: [id number] Admin: 05/02/20 20:18 Dose: 400 mg Documented by: [id number] Admin: 05/02/20 17:07 Dose: 400 mg Documented by: [id number] Admin: 05/02/20 12:50 Dose: 400 mg Documented by: [id number] Admin: 05/02/20 08:04 Dose: 400 mg Documented by: [id number] Admin: 05/01/20 20:28 Dose: 400 mg Documented by: [id number] Admin: 05/01/20 17:02 Dose: 400 mg Documented by: [id number] Entacapone (Comtan) 200 mg PO NOW ONE Stop: 05/04/20 09:01 Last Admin: 05/04/20 08:57 Dose: 200 mg Documented by: [id number] Sodium Chloride (Nss 1000ml) 2,000 mls @ 999 mls/hr IV .Q2H1M ONE Stop: 05/01/20 06:33 Last Infusion: 05/01/20 06:46 Dose: 0 mls/hr Documented by: [id number] Admin: 05/01/20 05:00 Dose: 999 mls/hr Documented by: [id number] Piperacillin Sod/Tazobactam Sod (Zosyn) 4.5 gm in 120 mls @ 240 mls/hr IV NOW ONE Stop: 05/01/20 07:31 Last Infusion: 05/01/20 07:51 Dose: 0 mls/hr Documented by: [id number] Admin: 05/01/20 07:10 Dose: 240 mls/hr Documented by: [id number] Sodium Chloride (Nss 1000ml) 1,000 mls @ 125 mls/hr IV .Q8H [facility] Stop: 05/31/20 07:29 Last Infusion: 05/01/20 12:30 Dose: 0 mls/hr Documented by: [id number] Admin: 05/01/20 07:50 Dose: 125 mls/hr Documented by: [id number] Sodium Chloride (Nss 1000ml) 1,000 mls @ 100 mls/hr IV .Q10H [facility] Stop: 05/31/20 10:33 Last Admin: 05/02/20 16:53 Dose: Not Given Documented by: [id number] Infusion: 05/02/20 16:53 Dose: 0 mls/hr Documented by: [id number] Admin: 05/02/20 07:58 Dose: 100 mls/hr Documented by: [id number] Infusion: 05/02/20 05:59 Dose: 100 mls/hr Documented by: [id number] Infusion: 05/02/20 05:36 Dose: 100 mls/hr Documented by: [id number] Infusion: 05/01/20 22:24 Dose: 100 mls/hr Documented by: [id number] Admin: 05/01/20 19:59 Dose: 100 mls/hr Documented by: [id number] Infusion: 05/01/20 19:59 Dose: 100 mls/hr Documented by: [id number] Infusion: 05/01/20 14:00 Dose: 100 mls/hr Documented by: [id number] Admin: 05/01/20 12:41 Dose: 125 mls/hr Documented by: [id number] Magnesium Sulfate/Dextrose (Magnesium Sulfate / D5w) 1 gm in 100 mls @ 50 mls/hr IV ONE ONE Stop: 05/01/20 21:44 Last Infusion: 05/01/20 22:24 Dose: 0 mls/hr Documented by: [id number] Admin: 05/01/20 19:59 Dose: 50 mls/hr Documented by: [id number] Lorazepam (Ativan) 1 mg in 2 mls @ 2 mls/min IV NOW STA Stop: 05/04/20 21:20 Last Admin: 05/04/20 22:16 Dose: 2 mls/min Documented by: [id number] Sodium Chloride (Nss 1000ml) 1,000 mls @ 80 mls/hr IV .[id number] [facility] Stop: 06/04/20 11:14 Last Infusion: 05/07/20 16:28 Dose: 0 mls/hr Documented by: [id number] Admin: 05/07/20 12:55 Dose: 80 mls/hr Documented by: [id number] Infusion: 05/07/20 12:48 Dose: 80 mls/hr Documented by: [id number] Admin: 05/07/20 00:18 Dose: 80 mls/hr Documented by: [id number] Infusion: 05/07/20 00:18 Dose: 80 mls/hr Documented by: [id number] Admin: 05/06/20 13:14 Dose: 80 mls/hr Documented by: [id number] Infusion: 05/06/20 12:41 Dose: 80 mls/hr Documented by: [id number] Infusion: 05/06/20 07:14 Dose: 80 mls/hr Documented by: [id number] Admin: 05/06/20 00:10 Dose: 80 mls/hr Documented by: [id number] Infusion: 05/05/20 23:49 Dose: 80 mls/hr Documented by: [id number] Admin: 05/05/20 11:19 Dose: 80 mls/hr Documented by: [id number] Lorazepam (Ativan) 0.25 mg in 0.5 mls @ 0.5 mls/min IV HS PRN PRN Reason: sleep, agitation Stop: 06/04/20 15:19 Last Admin: 05/06/20 04:34 Dose: 0.5 mls/min Documented by: [id number] Lorazepam (Ativan) 0.5 mg in 1 mls @ 1 mls/min IV NOW STA Stop: 05/06/20 08:19 Last Admin: 05/06/20 08:28 Dose: 1 mls/min Documented by: [id number] Lorazepam (Ativan) 0.5 mg in 1 mls @ 1 mls/min IV NOW STA Stop: 05/06/20 08:37 Last Admin: 05/06/20 08:51 Dose: 1 mls/min Documented by: [id number] Lorazepam (Ativan) 0.5 mg in 1 mls @ 1 mls/min IV ONE ONE Stop: 05/06/20 09:16 Last Admin: 05/06/20 09:42 Dose: 1 mls/min Documented by: [id number] Insulin Aspart (Novolog Flexpen) 0 units SC ACHS [facility] Stop: 05/31/20 11:29 Last Admin: 05/01/20 15:14 Dose: Not Given Documented by: [id number] Cosigned by: [id number] Insulin Aspart (Novolog Flexpen) 0 units SC Q6 [facility] Stop: 05/31/20 11:59 Last Admin: 05/01/20 13:59 Dose: Not Given Documented by: [id number] Cosigned by: [id number] Insulin Aspart (Novolog Flexpen) 0 units SC ACHS [facility] Stop: 05/31/20 17:59 Last Admin: 05/07/20 13:00 Dose: 6 units Documented by: [id number] Cosigned by: [id number] Admin: 05/07/20 08:29 Dose: 6 units Documented by: [id number] Cosigned by: [id number] Admin: 05/06/20 20:42 Dose: 3 units Documented by: [id number] Cosigned by: [id number] Admin: 05/06/20 17:29 Dose: Not Given Documented by: [id number] Cosigned by: [id number] Admin: 05/06/20 13:14 Dose: 1 units Documented by: [id number] Cosigned by: [id number] Admin: 05/06/20 09:13 Dose: 2 units Documented by: [id number] Cosigned by: [id number] Admin: 05/05/20 21:08 Dose: 3 units Documented by: [id number] Cosigned by: [id number] Admin: 05/05/20 18:09 Dose: Not Given Documented by: [id number] Admin: 05/05/20 13:15 Dose: Not Given Documented by: [id number] Admin: 05/05/20 08:59 Dose: 3 units Documented by: [id number] Cosigned by: [id number] Admin: 05/04/20 20:55 Dose: Not Given Documented by: [id number] Cosigned by: [id number] Admin: 05/04/20 18:08 Dose: 2 units Documented by: [id number] Cosigned by: [id number] Admin: 05/04/20 13:38 Dose: 3 units Documented by: [id number] Cosigned by: [id number] Admin: 05/04/20 09:05 Dose: 4 units Documented by: [id number] Cosigned by: [id number] Admin: 05/03/20 20:36 Dose: Not Given Documented by: [id number] Cosigned by: [id number] Admin: 05/03/20 17:52 Dose: 5 units Documented by: [id number] Cosigned by: [id number] Admin: 05/03/20 13:07 Dose: 5 units Documented by: [id number] Cosigned by: [id number] Admin: 05/03/20 09:18 Dose: 5 units Documented by: [id number] Cosigned by: [id number] Admin: 05/02/20 21:41 Dose: Not Given Documented by: [id number] Cosigned by: [id number] Admin: 05/02/20 18:26 Dose: 5 units Documented by: [id number] Cosigned by: [id number] Admin: 05/02/20 12:51 Dose: 3 units Documented by: [id number] Cosigned by: [id number] Admin: 05/02/20 09:15 Dose: 2 units Documented by: [id number] Cosigned by: [id number] Admin: 05/01/20 21:26 Dose: Not Given Documented by: [id number] Cosigned by: [id number] Admin: 05/01/20 19:03 Dose: Not Given Documented by: [id number] Cosigned by: [id number] Insulin Glargine (Lantus Solostar Pen) 0 units SC HS ONE; Protocol Stop: 05/07/20 21:01 Last Admin: 05/07/20 20:21 Dose: Not Given Documented by: [id number] Ioversol (Optiray 320 100ml) 94 ml IV ONCE PRN PRN Reason: Interaction Checking Stop: 05/05/20 06:11 Last Admin: 05/01/20 06:12 Dose: 94 ml Documented by: [id number] Miscellaneous (Order Awaiting Action) 1 ea N/A QS [facility] Stop: 05/31/20 15:59 Last Admin: 05/01/20 15:51 Dose: Not Given Documented by: [id number] Morphine Sulfate (Morphine Sulfate) 2 mg IV ONE ONE Stop: 05/01/20 14:01 Last Admin: 05/01/20 15:42 Dose: Not Given Documented by: [id number] Potassium Chloride (Klor-Con M20) 40 meq PO NOW STA Stop: 05/03/20 09:46 Last Admin: 05/03/20 10:44 Dose: 40 meq Documented by: [id number] Potassium Chloride (Ivelisse Ciel Elix) 40 meq PO ONE ONE Stop: 05/04/20 08:46 Last Admin: 05/04/20 08:57 Dose: 40 meq Documented by: [id number] Potassium Chloride (Ivelisse Ciel Elix) 40 meq PO ONE ONE Stop: 05/07/20 09:46 Last Admin: 05/07/20 12:30 Dose: Not Given Documented by: [id number] Potassium Chloride (Ivelisse Ciel Elix) 40 meq PO ONE ONE Stop: 05/07/20 12:31 Last Admin: 05/07/20 12:53 Dose: 40 meq Documented by: [id number] Description This is a 21 electrode EEG with a single channel dedicated to limited EKG. The electrodes were placed in accordance with the International 10-20 system. History: 80 yo woman with PD and dyskinesias, r/o seizure Rx: amantadine, tramadol Start/Stop: 12:46pm/1:06pm Attending reading: Genny Parra EEG Description: EEG background: Background was predominantly theta slowing with overriding alpha rhythm during the brief period that she is awake on the recording. No well formed posterior dominant rhythm was observed. The EEG is continuous. There is variability and reactivity present. Activation and reactivity: Photic stimulation performed without any abnormalities noted. No photic driving observed. Hyperventilation was not performed. Sleep: Patient was asleep for the majority of the record. Stages I and II of sleep were recorded with normal vertex waves and sleep spindles noted. Epileptiform discharges: No epileptiform discharges were observed. Rhythmic and periodic patterns: None Seizures: None Impression: This was a mildly abnormal awake and asleep EEG given generalized slowing seen in the awake state, consistent with a mild generalized encephalopathy or known underlying dementia process. No seizures or epileptiform discharges were seen. [facility] EEG Procedure Codes Indication for Procedure (1) Altered mental status: (2) Parkinson disease: Neurology Neurology: [id number] EEG include record awake & sleepy
--- NOTE | 2020-05-08 09:19 | Pharmacy Report ---
Pharmacy Glycemic Short Note 2 - Date of Service May 08, 2020 - Glycemic Short BSG Results (Last 24 hours): 05/07/20 05/07/20 05/07/20 11:32 16:20 20:09 POC Glucose 156 H 119 H 221 H 05/08/20 05/08/20 05/08/20 07:31 07:32 07:34 POC Glucose 308 H* 174 H 167 H OUTPATIENT ANTIDIABETIC REGIMEN: * Metformin 1000 mg PO BIDM * A1c: 6.6% - 04/14/20 ASSESSMENT: * BSGs ranging 119-221 mg/dL yesterday * Patient received 30 units of insulin - 5 units of basal and 25 units of prandial/correctional * BSGs tend to trend up slightly following dinner - CR tightened for dinner yesterday (will continue * Will continue conservative management at this time * Continues on empiric Zosyn for possible GI infection + history of Pseudomonas aeruginosa bacteremia PLAN FOR INPATIENT GLYCEMIC CONTROL: * Hold outpatient oral diabetes medications * Basal insulin * Lantus 5 units SC qAM, Lantus scale HS (0 units if BSG 199 mg/dL or below, 5 units if BSG 200 mg/dL or above) * Bolus insulin * NovoLog per scale ACHS or Q6hrs while NPO * Goal Range: Low 110 mg/dL - High 160 mg/dL * Correction Factor: 30 mg/dL/unit * Nutritional / Prandial insulin per carb ratio of 1 unit per 10 grams CHO consumed for breakfast, lunch, and bedtime * Nutritional / Prandial insulin per carb ratio of 1 unit per 8 grams CHO consumed for dinner PLAN FOR DISCHARGE: * Reasonable A1c goal for this patient would be less than 8% based on age and comorbidities * A1c of 6.6% is at goal * Continue home metformin 1 g PO BIDM
--- NOTE | 2020-05-08 14:01 | Hospitalist Progress Note ---
Date of Service May 08, 2020 Assessment & Plan (1) Acute metabolic encephalopathy: Presented with confusion, agitation, and "thrashing" of her arms and legs most of the day for the 3 days prior to admission as per daughter. She was febrile upon arrival with a possible source of colitis for infection. Alert and oriented today, no further dyskinesias noted TSH wnl, B12 high. - Stable today. Will move back to med-surg. (2) Sepsis: Patient now with 3 inpatient stays in the last month or so. The first was for a left lower lobe pneumonia and ESBL E. coli UTI. She was discharged home on doxycycline and Macrobid at that time. She then returned with altered mental status and was found to have a Pseudomonas bacteremia. Her urine at that time did not show evidence of infection, and the source of the Pseudomonas was not found. Nonetheless, she was sent to home to finish out a 14-day course of Cipro. She returned for this admission 5 days later with recurrent fever and altered mental status as well as nausea and vomiting. -CT abdomen/pelvis completed showing nonspecific colitis of the proximal descending colon, and mild biliary ductal dilatation -Gallbladder ultrasound was performed which showed moderately dilated gallbladder and mildly increased biliary ductal dilatation, CBD 1.1 cm, no pericholecystic fluid or gallbladder wall thickening HIDA scan was completed which showed no evidence of acute cholecystitis -Tmax 38.1 on arrival, WBC = 10.97, lactic acid =1.2. Remains afebrile now and leukocytosis is resolved after being treated with IV Zosyn LFTs are normal COVID-19 test was negative Blood cultures were drawn-no growth to date It is possible that she has a GI source of her previous Pseudomonas bacteremia- the colitis is possibly the source -Per GI, patient refused invasive workup and does not want a colonoscopy. I di scussed with patient and she is quite adamant that she does not want one. Her daughter reports she has never had one in the past. - GI recommends 10 days abx. -Continue IV Zosyn which covers for previous Pseudomonas bacteremia as well as other GI pathogens - Continue abx until 05/11/2020. (3) Colitis: suspected infectious colitis Continue IV Zosyn Consult GI - recommendations as above (4) Parkinson disease: -History of such, with severe dyskinesias on 05/04- which her daughter had described happening at home as well that resulted in a fall out of bed. On 05/06 they were severe enough that patient was a risk to herself as she was accidentally hitting herself in the head and pitching herself around the bed. She also seemed less able to protect her airway, catching in her throat and then spluttering and coughing. Required 1.5 mg Ativan05/06 to control movements and give patient the ability to rest which succeeded somewhat but with relapses of movement throughout the day - continue amantadine 100 mg BID, - Neuro consulted - Recommend weaning off of Stalevo and converting to long act ing Sinemet. Given patient's symptoms 05/06, changed Sinemet CR 50/200mg 2 tabs to bid, keep entacapone at 200mg tid and Buspar bid was initiated as this can help with dyskinesias. Patient with significant improvement on 05/07. (5) Diabetes mellitus: -ISS with Accu-Cheks AC at bedtime -Holding metformin from home -Last A1c on 04/14 was 6.6 -Sliding scale insulin for now - bsgs today at 120-300. Glycemic pharmacist to adjust. (6) Fall: -PT/OT consults -Fall precautions with Parkinsons - patient is fairly ambulatory with walker at baseline (7) Dementia: - mild, intermittent confusion but the patient is alert and oriented x3 -Supportive care (8) Ambulatory dysfunction: -As above PT/OT (9) Hypertension: Not on medication for this at home. BP here has been intermittently normal up to 155/85. - Monitor (10) Hypomagnesemia: - Mag 1.6 on admission, replaced and resolved (11) Bullous pemphigoid: Hold azathioprine while being treated for infection (12) Joint pain: Continue lidoderm for left shoulder pain. (13) Left hand pain: Persistent - Xray without fracture, shows arthritis (14) Paroxysmal atrial fibrillation: As seen on telemetry from 12:04 to 12:25 and then returned to sinus rhythm. Her CHADS-Vasc is 5. Justyna Dalton had long discussion with patient about risks and benefits of anticoagulation and that she recommended anticoagulation for her. She declines starting blood thinners at this point. Ms. Dalton also discussed with her daughter and that Ms. Nicole did not want to be anticoagulated. Ms. Nicole did say she wanted to think about it more. This could be revisited by her PCP after discharge. - Outpatient discussion (15) DVT prophylaxis: - Andree nieves SQ CODE: DNR/DNI Dispo: Continued stay, referral sent to [facility] unfortunately they cannot take patient with IV abx, possibly to [facility]. Authorization pending. Admission and Anticipated Discharge Date Admission Date: May 02, 2020 Subjective Doing much better today. No movements noted. Reports no fevers/chills, chest pain, shortness of breath, abdominal pain, nausea, or vomiting. Physical Exam Constitutional: WD/WN, vitals as above Eyes: EOM intact bilaterally; no conjunctival abnormality ENMT: external ear and nose normal, oropharynx normal Neck: trachea midline, no thyromegaly normal visual inspection Respiratory: normal respiratory effort, lungs clear to auscultation no respiratory distress Cardiovascular: RRR, no murmur, no edema Gastrointestinal (Abdomen): Inspection/Auscultation: abdomen normal to inspection; abdomen not distended Musculoskeletal: no cyanosis or clubbing, extremities motor strength 5/5 Skin: no rashes, warm and dry Neurologic: moves all extremities and awake Psychiatric: Orientation: alert, oriented to person and cooperative Results & Data Results & Data ([facility]) Vital Signs (Past 12 Hours) Vital Signs Temp Pulse Resp BP BP Pulse Ox 05/08/20 07:43 36.9 C 88 20 144/84 H 95 05/08/20 03:23 36.4 C L 85 21 154/86 H 94 PG Care Time/CCT Total # of Minutes Spent Total Time Spent with Patient: Total time spent is greater than 50% in coordination of care (as documented) at patient's floor/unit and/or counseling patient: Coding Level of Care Code 63608 Subseq Hosp Care Lvl 3 Diagnoses Acute metabolic encephalopathy G93.41 Sepsis A41.9; R65.20; G93.40 Sepsis acute organ dysfunction status: with acute organ dysfunction Sepsis type: sepsis due to unspecified organism Severe sepsis acute organ dysfunction type: encephalopathy Severe sepsis shock status: without septic shock Colitis K52.9 Parkinson disease G20 Diabetes mellitus E11.9 Fall W19.XXXA Encounter type: initial encounter Dementia F03.91 Dementia behavioral disturbance: with behavioral disturbance Dementia type: unspecified type Ambulatory dysfunction R26.2 Hypertension I10 Hypertension type: essential hypertension Hypomagnesemia E83.42 Bullous pemphigoid L12.0 Joint pain M25.50 Left hand pain M79.642 Paroxysmal atrial fibrillation I48.0 DVT prophylaxis Z29.9 (1) Sepsis Sepsis acute organ dysfunction status: with acute organ dysfunction Sepsis type: sepsis due to unspecified organism Severe sepsis acute organ dysfunction type: encephalopathy Severe sepsis shock status: without septic shock Qualified Code(s): A41.9 - Sepsis, unspecified organism; R65.20 - Severe sepsis without septic shock; G93.40 - Encephalopathy, unspecified (2) Fall Encounter type: initial encounter Qualified Code(s): W19.XXXA - Unspecified fall, initial encounter (3) Dementia Dementia behavioral disturbance: with behavioral disturbance Dementia type: unspecified type Qualified Code(s): F03.91 - Unspecified dementia with behavioral disturbance (4) Hypertension Hypertension type: essential hypertension Qualified Code(s): I10 - Essential (primary) hypertension
[2020-05-08] MEDS: ENOXAPARIN INJ 40 MG/0.4 ML SYR SQ SCH (16:47)
[2020-05-08] MEDS: ACETAMINOPHEN 325 MG TAB PO PRN (19:36)
[2020-05-08] MEDS: CARBIDOPA/LEVODOPA 50/200MG EXT REL TAB PO SCH (20:49)
[2020-05-08] MEDS ORDERED: INSULIN GLARGINE SOLOSTAR 100 UNITS/ML 3 ML PEN SC ONE (21:00)
[2020-05-09] MEDS: PIPERACILLIN/TAZOBACTAM 3.375 GM in DEXTROSE 5% 100 ML IV SCH ×3 (04:03→20:17)
[2020-05-09] MEDS: ENTACAPONE 200 MG TAB PO SCH ×3 (06:19→18:01)
[2020-05-09 06:56] LABS: Hematocrit (blood only) 38.4 % (37-47); Hemoglobin 12.5 g/dL (12.0-16.0); Mean Corpuscular Hemoglobin 31.6 pg (25-34); Mean Corpuscular Hgb Conc 32.6 g/dL (32-36); Mean Corpuscular Volume 97.2 fL (80-100); Mean Platelet Volume 9.8 fL (7.4-10.4); Platelet Count 422 K/uL (130-400); RDW Coefficient of Variation 15.1 % (11.5-14.5); RDW Standard Deviation 53.6 fL (36.4-46.3); Red Blood Count 3.95 M/uL (4.2-5.4)
[2020-05-09 07:25] LABS: BUN Creatinine Ratio 17.1 (10-20); Calcium 9.5 mg/dl (8.5-10.1); Creatinine Clr Calc Pharmacy 73.7 ml/min; Est GFR (Non-African American) 82.8; Potassium 3.6 mmol/L (3.5-5.1)
[2020-05-09] MEDS: LIDOCAINE 5% 1 PATCH TD SCH (08:02)
[2020-05-09] MEDS: AMANTADINE HCL 100 MG CAPSULE PO SCH ×2 (08:03→20:18)
[2020-05-09] MEDS: ASPIRIN 81 MG ECTAB PO SCH (08:04)
[2020-05-09] MEDS: CARBIDOPA/LEVODOPA 50/200MG EXT REL TAB PO SCH ×2 (08:04→20:18)
[2020-05-09] MEDS: MULTIVITAMIN TAB PO SCH (08:04)
[2020-05-09] MEDS: INSULIN ASPART 100 UNITS/ML 3 ML PEN SC SCH ×4 (08:18→20:19)
--- NOTE | 2020-05-09 08:42 | Pharmacy Report ---
Pharmacy Glycemic Short Note 2 - Date of Service May 09, 2020 - Glycemic Short BSG Results (Last 24 hours): 05/08/20 05/08/20 05/08/20 11:31 16:32 20:19 Glucose POC Glucose 149 H 165 H 162 H 05/09/20 05/09/20 06:32 07:31 Glucose 162 H POC Glucose 163 H OUTPATIENT ANTIDIABETIC REGIMEN: * Metformin 1000 mg PO BIDM * A1c: 6.6% - 04/14/20 ASSESSMENT: * BSGs ranging 149-167 mg/dL yesterday * Patient received 27 units of insulin - 5 units of basal and 22 units of prandial/correctional * BSGs previously trended up in evening - tightened carb coverage with dinner helping to correct this * Fasting BSG this morning of 163 mg/dL - will increase basal insulin this morning * Continues on empiric Zosyn for possible GI infection + history of Pseudomonas aeruginosa bacteremia PLAN FOR INPATIENT GLYCEMIC CONTROL: * Hold outpatient oral diabetes medications * Basal insulin - increase * Lantus 8 units SC qAM * Bolus insulin - continue * NovoLog per scale ACHS or Q6hrs while NPO * Goal Range: Low 110 mg/dL - High 160 mg/dL * Correction Factor: 30 mg/dL/unit * Nutritional / Prandial insulin per carb ratio of 1 unit per 10 grams CHO consumed for breakfast, lunch, and bedtime * Nutritional / Prandial insulin per carb ratio of 1 unit per 8 grams CHO consumed for dinner PLAN FOR DISCHARGE: * Reasonable A1c goal for this patient would be less than 8% based on age and comorbidities * A1c of 6.6% is at goal * Continue home metformin 1 g PO BIDM
[2020-05-09] MEDS ORDERED: INSULIN GLARGINE SOLOSTAR 100 UNITS/ML 3 ML PEN SC SCH (09:00)
--- NOTE | 2020-05-09 12:17 | Hospitalist Progress Note ---
Date of Service May 09, 2020 Assessment & Plan (1) Acute metabolic encephalopathy: Presented with confusion, agitation, and "thrashing" of her arms and legs most of the day for the 3 days prior to admission as per daughter. She was febrile upon arrival with a possible source of colitis for infection. Alert and oriented today, no further dyskinesias noted TSH wnl, B12 high. - Stable today. Moved back to [facility]-surg. Doing well today. More conversant. (2) Sepsis: Patient now with 3 inpatient stays in the last month or so. The first was for a left lower lobe pneumonia and ESBL E. coli UTI. She was discharged home on doxycycline and Macrobid at that time. She then returned with altered mental status and was found to have a Pseudomonas bacteremia. Her urine at that time did not show evidence of infection, and the source of the Pseudomonas was not found. Nonetheless, she was sent to home to finish out a 14-day course of Cipro. She returned for this admission 5 days later with recurrent fever and altered mental status as well as nausea and vomiting. -CT abdomen/pelvis completed showing nonspecific colitis of the proximal descending colon, and mild biliary ductal dilatation -Gallbladder ultrasound was performed which showed moderately dilated gallbladder and mildly increased biliary ductal dilatation, CBD 1.1 cm, no pericholecystic fluid or gallbladder wall thickening HIDA scan was completed which showed no evidence of acute cholecystitis -Tmax 38.1 on arrival, WBC = 10.97, lactic acid =1.2. Remains afebrile now and leukocytosis is resolved after being treated with IV Zosyn LFTs are normal COVID-19 test was negative Blood cultures were drawn-no growth to date It is possible that she has a GI source of her previous Pseudomonas bacteremia- the colitis is possibly the source -Per GI, patient refused invasive workup and does not want a colonoscopy. I discussed with patient and she is quite adamant that she does not want one. Her daughter reports she has never had one in the past. - GI recommends 10 days abx. -Continue IV Zosyn which covers for previous Pseudomonas bacteremia as well as other GI pathogens - Continue abx until 05/11/2020. (3) Colitis: suspected infectious colitis Continue IV Zosyn Consult GI - recommendations as above (4) Parkinson disease: -History of such, with severe dyskinesias on 05/04- which her daughter had described happening at home as well that resulted in a fall out of bed. On 05/06 they were severe enough that patient was a risk to herself as she was accidentally hitting herself in the head and pitching herself around the bed. She also seemed less able to protect her airway, catching in her throat and then spluttering and coughing. Required 1.5 mg Ativan05/06 to control movements and give patient the ability to rest which succeeded somewhat but with relapses of movement throughout the day - continue amantadine 100 mg BID, - Neuro consulted - Recommend weaning off of Stalevo and converting to long acting Sinemet. Given patient's symptoms 05/06, changed Sinemet CR 50/200mg 2 tabs to bid, keep entacapone at 200mg tid and Buspar bid was initiated as this can help with dyskinesias. Patient with significant improvement on 05/07. Even better today. No significant dyskinesias in 2 days. (5) Diabetes mellitus: -ISS with Accu-Cheks AC at bedtime -Holding metformin from home -Last A1c on 04/14 was 6.6 -Sliding scale insulin for now - bsgs today at 120-180. Good range for inpatient. (6) Fall: -PT/OT consults -Fall precautions with Parkinsons - patient is fairly ambulatory with walker at baseline. (7) Dementia: - mild, intermittent confusion but the patient is alert and oriented x3 -Supportive care (8) Ambulatory dysfunction: -As above PT/OT (9) Hypertension: Not on medication for this at home. BP here has been intermittently normal up to 155/85. - Monitor (10) Hypomagnesemia: - Mag 1.6 on admission, replaced and resolved (11) Bullous pemphigoid: Hold azathioprine while being treated for infection (12) Joint pain: Continue lidoderm for left shoulder pain. (13) Left hand pain: Persistent - Xray without fracture, shows arthritis (14) Paroxysmal atrial fibrillation: As seen on telemetry from 12:04 to 12:25 and then returned to sinus rhythm. Her CHADS-Vasc is 5. Justyna Dalton had long discussion with patient about risks and benefits of anticoagulation and that she recommended anticoagulation for her. She declines starting blood thinners at this point. Ms. Dalton also discussed with her daughter and that Ms. Nicole did not want to be anticoagulated. Ms. Nicole did say she wanted to think about it more. This could be revisited by her PCP after discharge. - Outpatient discussion (15) DVT prophylaxis: - lizbeth Norawendie SQ CODE: DNR/DNI Dispo: Authorization pending for [facility]. Admission and Anticipated Discharge Date Admission Date: May 02, 2020 Subjective No major issues today. No more dyskinesias today or overnight. Reports no fevers /chills, chest pain, shortness of breath, abdominal pain, nausea, or vomiting. Physical Exam Constitutional: WD/WN, vitals as above Eyes: EOM intact bilaterally; no conjunctival abnormality ENMT: external ear and nose normal, oropharynx normal Neck: trachea midline, no thyromegaly normal visual inspection Respiratory: normal respiratory effort, lungs clear to auscultation no respiratory distress Cardiovascular: RRR, no murmur, no edema Gastrointestinal (Abdomen): Inspection/Auscultation: abdomen normal to inspection; abdomen not distended Musculoskeletal: no cyanosis or clubbing, extremities motor strength 5/5 Skin: no rashes, warm and dry Neurologic: moves all extremities and awake Psychiatric: Orientation: alert, oriented to person and cooperative Results & Data Results & Data ([facility]) Vital Signs (Past 12 Hours) Vital Signs Temp Pulse Resp BP Pulse Ox 05/09/20 07:16 36.5 C 79 16 129/75 95 PG Care Time/CCT Total # of Minutes Spent Total Time Spent with Patient: Total time spent is greater than 50% in coordination of care (as documented) at patient's floor/unit and/or counseling patient: Coding Level of Care Code 41068 Subseq Hosp Care Lvl 2 Diagnoses Acute metabolic encephalopathy G93.41 Sepsis A41.9; R65.20; G93.40 Sepsis acute organ dysfunction status: with acute organ dysfunction Sepsis type: sepsis due to unspecified organism Severe sepsis acute organ dysfunction type: encephalopathy Severe sepsis shock status: without septic shock Colitis K52.9 Parkinson disease G20 Diabetes mellitus E11.9 Fall W19.XXXA Encounter type: initial encounter Dementia F03.91 Dementia behavioral disturbance: with behavioral disturbance Dementia type: unspecified type Ambulatory dysfunction R26.2 Hypertension I10 Hypertension type: essential hypertension Hypomagnesemia E83.42 Bullous pemphigoid L12.0 Joint pain M25.50 Left hand pain M79.642 Paroxysmal atrial fibrillation I48.0 DVT prophylaxis Z29.9 (1) Sepsis Sepsis acute organ dysfunction status: with acute organ dysfunction Sepsis type: sepsis due to unspecified organism Severe sepsis acute organ dysfunction type: encephalopathy Severe sepsis shock status: without septic shock Qualified Code(s): A41.9 - Sepsis, unspecified organism; R65.20 - Severe sepsis without septic shock; G93.40 - Encephalopathy, unspecified (2) Fall Encounter type: initial encounter Qualified Code(s): W19.XXXA - Unspecified fall, initial encounter (3) Dementia Dementia behavioral disturbance: with behavioral disturbance Dementia type: unspecified type Qualified Code(s): F03.91 - Unspecified dementia with behavioral disturbance (4) Hypertension Hypertension type: essential hypertension Qualified Code(s): I10 - Essential (primary) hypertension
[2020-05-09] MEDS: ENOXAPARIN INJ 40 MG/0.4 ML SYR SQ SCH (16:47)
[2020-05-10] MEDS: PIPERACILLIN/TAZOBACTAM 3.375 GM in DEXTROSE 5% 100 ML IV SCH ×3 (03:54→20:09)
[2020-05-10] MEDS: ENTACAPONE 200 MG TAB PO SCH ×3 (06:19→18:58)
[2020-05-10] MEDS: CARBIDOPA/LEVODOPA 50/200MG EXT REL TAB PO SCH ×2 (08:03→20:15)
[2020-05-10] MEDS: ASPIRIN 81 MG ECTAB PO SCH (08:04)
[2020-05-10] MEDS: AMANTADINE HCL 100 MG CAPSULE PO SCH ×2 (08:04→20:14)
[2020-05-10] MEDS: MULTIVITAMIN TAB PO SCH (08:04)
[2020-05-10] MEDS: LIDOCAINE 5% 1 PATCH TD SCH (08:04)
[2020-05-10] MEDS: INSULIN ASPART 100 UNITS/ML 3 ML PEN SC SCH ×4 (08:22→21:11)
[2020-05-10] MEDS ORDERED: INSULIN GLARGINE SOLOSTAR 100 UNITS/ML 3 ML PEN SC SCH (09:00)
--- NOTE | 2020-05-10 09:08 | Pharmacy Report ---
Pharmacy Glycemic Short Note 2 - Date of Service May 10, 2020 - Glycemic Short BSG Results (Last 24 hours): 05/09/20 05/09/20 05/09/20 11:43 16:40 20:15 POC Glucose 179 H 182 H 280 H 05/10/20 05/10/20 05/10/20 07:21 07:51 07:54 POC Glucose 185 H 401 H* 169 H 05/10/20 07:57 POC Glucose 175 H OUTPATIENT ANTIDIABETIC REGIMEN: * Metformin 1000 mg PO BIDM * A1c: 6.6% - 04/14/20 ASSESSMENT: * BSGs ranging 163-280 mg/dL yesterday - trending up throughout the day * Patient received 23 units of insulin - 8 units of basal and 15 units of prandial/correctional * Fasting BSG this morning of 175 mg/dL this morning - will further increase Lantus today and consider scale this evening * Continues on empiric Zosyn for possible GI infection + history of Pseudomonas aeruginosa bacteremia (stop date is tomorrow 05/11) PLAN FOR INPATIENT GLYCEMIC CONTROL: * Hold outpatient oral diabetes medications * Basal insulin - increase * Lantus 10 units SC qAM * Bolus insulin - tighten * NovoLog per scale ACHS or Q6hrs while NPO * Goal Range: Low 110 mg/dL - High 160 mg/dL * Correction Factor: 25 mg/dL/unit * Nutritional / Prandial insulin per carb ratio of 1 unit per 8 grams CHO consumed ACHS PLAN FOR DISCHARGE: * Reasonable A1c goal for this patient would be less than 8% based on age and comorbidities * A1c of 6.6% is at goal * Continue home metformin 1 g PO BIDM
[2020-05-10] MEDS: ENOXAPARIN INJ 40 MG/0.4 ML SYR SQ SCH (16:21)
--- NOTE | 2020-05-10 22:25 | Hospitalist Progress Note ---
Date of Service May 10, 2020 Assessment & Plan (1) Acute metabolic encephalopathy: Presented with confusion, agitation, and "thrashing" of her arms and legs most of the day for the 3 days prior to admission as per daughter. She was febrile upon arrival with a possible source of colitis for infection. Alert and oriented today, no further dyskinesias noted TSH wnl, B12 high. - Continues to be stable today. Moved back to med-surg. Doing well today. -Will finish antibiotic tomorrow. -Plan is to discharge tomorrow. (2) Sepsis: Patient now with 3 inpatient stays in the last month or so. The first was for a left lower lobe pneumonia and ESBL E. coli UTI. She was discharged home on doxycycline and Macrobid at that time. She then returned with altered mental status and was found to have a Pseudomonas bacteremia. Her urine at that time did not show evidence of infection, and the source of the Pseudomonas was not found. Nonetheless, she was sent to home to finish out a 14-day course of Cipro. She returned for this admission 5 days later with recurrent fever and altered mental status as well as nausea and vomiting. -CT abdomen/pelvis completed showing nonspecific colitis of the proximal descending colon, and mild biliary ductal dilatation -Gallbladder ultrasound was performed which showed moderately dilated gallbladder and mildly increased biliary ductal dilatation, CBD 1.1 cm, no pericholecystic fluid or gallbladder wall thickening HIDA scan was completed which showed no evidence of acute cholecystitis -Tmax 38.1 on arrival, WBC = 10.97, lactic acid =1.2. Remains afebrile now and leukocytosis is resolved after being treated with IV Zosyn LFTs are normal COVID-19 test was negative Blood cultures were drawn-no growth to date It is possible that she has a GI source of her previous Pseudomonas bacteremia- the colitis is possibly the source -Per GI, patient refused invasive workup and does not want a colonoscopy. I discussed with patient and she is quite adamant that she does not want one. Her daughter reports she has never had one in the past. - GI recommends 10 days abx. -Continue IV Zosyn which covers for previous Pseudomonas bacteremia as well as other GI pathogens - Continue abx until 05/11/2020. (3) Colitis: suspected infectious colitis Continue IV Zosyn Consult GI - recommendations as above (4) Parkinson disease: -History of such, with severe dyskinesias on 05/04- which her daughter had described happening at home as well that resulted in a fall out of bed. On 05/06 they were severe enough that patient was a risk to herself as she was accidentally hitting herself in the head and pitching herself around the bed. She also seemed less able to protect her airway, catching in her throat and then spluttering and coughing. Required 1.5 mg Ativan05/06 to control movements and give patient the ability to rest which succeeded somewhat but with relapses of movement throughout the day - continue amantadine 100 mg BID, - Neuro consulted - Recommend weaning off of Stalevo and converting to long acting Sinemet. Given patient's symptoms 05/06, changed Sinemet CR 50/200mg 2 tabs to bid, keep entacapone at 200mg tid and Buspar bid was initiated as this can help with dyskinesias. Patient with significant improvement on 05/07. Even better today. No significant dyskinesias in 2 days. (5) Diabetes mellitus: -ISS with Accu-Cheks AC at bedtime -Holding metformin from home -Last A1c on 04/14 was 6.6 -Sliding scale insulin for now - bsgs today at 120-180. Good range for inpatient. (6) Fall: -PT/OT consults -Fall precautions with Parkinsons - patient is fairly ambulatory with walker at baseline. (7) Dementia: - mild, intermittent confusion but the patient is alert and oriented x3 -Supportive care (8) Ambulatory dysfunction: -As above PT/OT (9) Hypertension: Not on medication for this at home. BP here has been intermittently normal up to 155/85. - Monitor (10) Hypomagnesemia: - Mag 1.6 on admission, replaced and resolved (11) Bullous pemphigoid: Hold azathioprine while being treated for infection (12) Joint pain: Continue lidoderm for left shoulder pain. (13) Left hand pain: Persistent - Xray without fracture, shows arthritis (14) Paroxysmal atrial fibrillation: As seen on telemetry from 12:04 to 12:25 and then returned to sinus rhythm. Her CHADS-Vasc is 5. Justyna Dalton had long discussion with patient about risks and benefits of anticoagulation and that she recommended anticoagulation for her. She declines starting blood thinners at this point. Ms. Dalton also discussed with her daughter and that Ms. Nicole did not want to be anticoagulated. Ms. Nicole did say she wanted to think about it more. This could be revisited by her PCP after discharge. - Outpatient discussion (15) DVT prophylaxis: - Andree nieves SQ CODE: DNR/DNI Dispo: Authorization pending for [facility]. Admission and Anticipated Discharge Date Admission Date: May 02, 2020 Subjective 80 yo female reports no new symptoms at this time. She is calm and lying in bed. Review of Systems Review of Systems: Constitutional: + Fever, sweats and chills Eyes: No diplopia, no worsening or blurred vision ENT: normal hearing, no trouble swallowing Respiratory: + Cough, no sputum, no dyspnea at rest or on exertion Cardiovascular: No chest pain, tightness or palpitations Abdomen: See HPI, no pain, nausea, vomiting, diarrhea or constipation Musculoskeletal: No joint pain, calf pain, swelling Neurologic: + Generalized weakness, no numbness/tingling, + balance problems, uses walker at baseline Psychiatric: See HPI Skin: No rash or itch Physical Exam Physical Exam: Constitutional: WD/WN, vitals as above Eyes: EOM intact bilaterally; no conjunctival abnormality ENMT: external ear and nose normal, oropharynx normal Neck: trachea midline, no thyromegaly normal visual inspection Respiratory: normal respiratory effort, lungs clear to auscultation no respiratory distress Cardiovascular: RRR, no murmur, no edema Gastrointestinal (Abdomen): Inspection/Auscultation: abdomen normal to inspection; abdomen not distended Musculoskeletal: no cyanosis or clubbing, extremities motor strength 5/5 Skin: no rashes, warm and dry Neurologic: moves all extremities and awake Psychiatric: Orientation: alert, oriented to person and cooperative Results & Data Results & Data ([facility]) Vital Signs (Past 12 Hours) Vital Signs Temp Pulse Resp BP Pulse Ox 05/10/20 15:04 36.9 C 82 18 111/70 95 PG Care Time/CCT Total # of Minutes Spent Total Time Spent with Patient: Total time spent is greater than 50% in coordination of care (as documented) at patient's floor/unit and/or counseling patient: Coding Level of Care Code 33119 Subseq Hosp Care Lvl 3 Diagnoses Acute metabolic encephalopathy G93.41 Sepsis A41.9; R65.20; G93.40 Sepsis acute organ dysfunction status: with acute organ dysfunction Sepsis type: sepsis due to unspecified organism Severe sepsis acute organ dysfunction type: encephalopathy Severe sepsis shock status: without septic shock Colitis K52.9 Parkinson disease G20 Diabetes mellitus E11.9 Fall W19.XXXA Encounter type: initial encounter Dementia F03.91 Dementia behavioral disturbance: with behavioral disturbance Dementia type: unspecified type Ambulatory dysfunction R26.2 Hypertension I10 Hypertension type: essential hypertension Hypomagnesemia E83.42 Bullous pemphigoid L12.0 Joint pain M25.50 Left hand pain M79.642 Paroxysmal atrial fibrillation I48.0 DVT prophylaxis Z29.9 (1) Dementia Dementia behavioral disturbance: with behavioral disturbance Dementia type: unspecified type Qualified Code(s): F03.91 - Unspecified dementia with behavioral disturbance (2) Sepsis Sepsis acute organ dysfunction status: with acute organ dysfunction Sepsis type: sepsis due to unspecified organism Severe sepsis acute organ dysfunction type: encephalopathy Severe sepsis shock status: without septic shock Qualified Code(s): A41.9 - Sepsis, unspecified organism; R65.20 - Severe sepsis without septic shock; G93.40 - Encephalopathy, unspecified (3) Hypertension Hypertension type: essential hypertension Qualified Code(s): I10 - Essential (primary) hypertension (4) Fall Encounter type: initial encounter Qualified Code(s): W19.XXXA - Unspecified fall, initial encounter
[2020-05-11] MEDS: PIPERACILLIN/TAZOBACTAM 3.375 GM in DEXTROSE 5% 100 ML IV SCH (04:16)
[2020-05-11] MEDS: ENTACAPONE 200 MG TAB PO SCH (06:56)
[2020-05-11] MEDS: ASPIRIN 81 MG ECTAB PO SCH (07:33)
[2020-05-11] MEDS: AMANTADINE HCL 100 MG CAPSULE PO SCH (07:33)
[2020-05-11] MEDS: MULTIVITAMIN TAB PO SCH (07:34)
[2020-05-11] MEDS: LIDOCAINE 5% 1 PATCH TD SCH (07:34)
[2020-05-11] MEDS: CARBIDOPA/LEVODOPA 50/200MG EXT REL TAB PO SCH (07:34)
[2020-05-11] MEDS: ACETAMINOPHEN 325 MG TAB PO PRN (07:37)
--- NOTE | 2020-05-11 08:34 | Neurology Progress Note ---
Date of Service May 11, 2020 Assessment & Plan (1) Parkinson disease: (2) Dementia: (3) Acute metabolic encephalopathy: Patient has a history of Parkinson's disease on significant medication but she is not sure who is her neurologist. she had significant dyskinesias on admission which have been markedly improved. Stalevo 100, 2 tablets 4 times a day, was changed to carbidopa levodopa ER, 50/202 in the morning and 2 in the evening. She is on Entacapone 3 times a day and amantadine 100 mg twice a day. I see mild bradykinesia and minimal cogwheeling or rigidity. She has no resting tremor. Currently I see no dyskinesia. patient has a history of dementia but was fairly well oriented this morning. She presented with acute encephalopathy likely secondary to sepsis but this is markedly improved as well. Recommendations: 1. decrease Entacapone to 200 mg twice a day, taken with the Sinemet. Entacapone by itself does very little and must be given with Sinemet to augment it. 2. amantadine 100 mg twice a day can be continued although I am not sure what is adding to her treatment plan at this time. This could be addressed as an outpatient. 3. continue carbidopa/ levodopa ER 50/200, 2 tablets in the morning and 2 in the evening. 4. buspirone was given for dyskinesia. At this point, I am not certain she needs this, but it can be continued for now and addressed as an outpatient 5. Increase activity as able and consider physical therapy. 6. I have no further neurologic recommendations to make at this time and she could be seen as an outpatient by Dr. Parra (if she does not already have a neurologist somewhere else). Overall, I spent a total 35 minutes with this case including review of records, direct evaluation the patient at bedside, discussion of the case with the patient and RN at bedside, and Dr. Stallworth including differential diagnosis and treatment options. Admission and Anticipated Discharge Date Admission Date: May 02, 2020 Subjective patient does have some pain that she rates as a "5-6" out of 10. when asked where it is she claims it is "all over". More specifically, she denies any headache pain and does not believe that her cervical spine or lumbar spine have any significant pain. She does have some pain in her arms and legs of a nonspecific nature. It is an achy pain. She claims this is better than it was in the past. She denies dizziness. She does not have any dyskinesias of significance and the nursing staff does not report any abnormal movements. Currently she is on generic Sinemet ER 50/200, 2 tablets twice a day. She takes Entacapone 200 mg 3 times a day. She is on amantadine 100 mg twice a day. She was given buspirone 5 mg twice a day for dyskinesias. Glucose is 147. she is afebrile. Pressure is 111/68. Results & Data ([facility]) Vital Signs (Past 12 Hours) Vital Signs Temp Pulse Resp BP BP Pulse Ox 05/11/20 08:00 36.6 C 71 18 131/74 97 05/10/20 23:56 36.8 C 78 18 103/58 L 111/68 94 Exam (Neuro) Physical Exam: She is awake and alert. She has some soft voice but no true dysarthria ( she does not have teeth in currently , which makes it a little bit more difficult to understand her). she is oriented to day you, date, age, month, day, and year. mood is good and affect is appropriate. She follows commands readily and is pleasant and cooperative. Extraocular eye muscles are intact without nystagmus. There is no facial droop and she has good symmetry with smile. Tongue is midline. She has a mild masklike face. There is some mild bradykinesia in general. Coordination is normal in the arms without ataxia bilaterally. Facility is reasonable and hands. There is no resting tremor noted. She has no postural or action tremor. I see no dyskinesias. She has minimal cogwheel rigidity this morning. Strength is symmetrical in all 4 limbs. PG Care Time/CCT Total # of Minutes Spent Total Time Spent with Patient: Total time spent is greater than 50% in coordination of care (as documented) at patient's floor/unit and/or counseling patient: Coding Level of Care Code 18528 Subseq Hosp Care Lvl 3 Diagnoses Parkinson disease G20 Dementia F03.91 Dementia behavioral disturbance: with behavioral disturbance Dementia type: unspecified type Acute metabolic encephalopathy G93.41 Time Spent (min) 35 (1) Dementia Dementia behavioral disturbance: with behavioral disturbance Dementia type: unspecified type Qualified Code(s): F03.91 - Unspecified dementia with behavioral disturbance
[2020-05-11] MEDS: INSULIN ASPART 100 UNITS/ML 3 ML PEN SC SCH ×2 (08:48→12:47)
[2020-05-11] MEDS ORDERED: INSULIN GLARGINE SOLOSTAR 100 UNITS/ML 3 ML PEN SC SCH (09:00)
--- NOTE | 2020-05-11 09:59 | Pharmacy Report ---
Pharmacy Glycemic Short Note 2 - Date of Service May 11, 2020 - Glycemic Short BSG Results (Last 24 hours): 05/10/20 05/10/20 05/10/20 11:54 16:36 20:21 POC Glucose 166 H 206 H 136 H 05/11/20 07:43 POC Glucose 147 H OUTPATIENT ANTIDIABETIC REGIMEN: * Metformin 1000 mg PO BIDM * A1c: 6.6% - 04/14/20 ASSESSMENT: * 31 units SQ insulin administered over last 24 hs while tolerating a diet * Fasting BSG 147 this AM with 10 units Lantus on board. FBS improved this AM, however will titrate dose upwards further given patient's weight and anticipated total daily insulin requirement of ~30-35 units * Post-prandial BSGs controlled on 2 or 3 checks yesterday. Novolog doses were recently adjusted. Will continue current dosing parameters at this time but monitor BSG pattern and adjust PRN today. PLAN FOR INPATIENT GLYCEMIC CONTROL: * Hold outpatient oral diabetes medications * Basal insulin - increase * Lantus 15 units SC qAM * Bolus insulin - no change * NovoLog per scale ACHS or Q6hrs while NPO * Goal Range: Low 110 mg/dL - High 160 mg/dL * Correction Factor: 25 mg/dL/unit * Nutritional / Prandial insulin per carb ratio of 1 unit per 8 grams CHO consumed ACHS PLAN FOR DISCHARGE: * Reasonable A1c goal for this patient would be less than 8% based on age and comorbidities * A1c of 6.6% is at goal * Continue home metformin 1 g PO BIDM if no contraindications present at time of discharge
[2020-05-11] MEDS ORDERED: POLYETHYLENE (MIRALAX) 17 GM PACK PO SCH (13:45)
[2020-05-11] MEDS ORDERED: MAGNESIUM HYDROXIDE SUSP 30 ML UDC PO ONE (13:45)
[2020-05-11] MEDS ORDERED: ENTACAPONE 200 MG TAB PO SCH (19:00)
--- NOTE | 2020-05-18 07:11 | Discharge Summary ---
Date of Service May 11, 2020 Admission HPI Per Admitting Provider This is a n 80 yo F with PMHx of DM II, HTN, Parkinsons disease, mild dementia, ambulatory dysfunction, who was recently admitted to our facility on 2 separate occasions: 04/21- 04/26 for sepsis and Pseudomonas bacteremia that was thought secondary to UTI, and metabolic encephalopathy, and prior to that 03/17- 04/15 for sepsis due to pneumonia and E. coli UTI causing metabolic encephalopathy. Today the patient represents for fever, cough, generalized malaise, poor appetite. She provides history but is difficult to understand due to poorly fitting dentures and fatigue. She has been taking Cipro as directed at home, b ut has not yet finished the prescription. She lives at home with her daughter and snowshoe, uses a rolling walker at baseline, typically is able to participate in ADLs but has been unable to do so since discharge on 04/26. I called and discussed the patient's case with her daughter, Pili. Pt daughter reports having body flailing intermittently over the past 4 days, that she fell out of bed and hit her arm and the left side of her head this morning from laying in bed when she was trying to reach for a cup of water. Had waxing and waning confusion since Sunday. The patient was vomiting on Sunday several times and since then has had poor appetite. Due to generalized body aches and pains, has been alternating tramadol and tylenol. Bowels have been regular, no urinary complaints, increased frequency or incontinence. The daughter also reports that she has these episodes of flailing her arms and that at times seems very confused and has dilated pupils after these episodes. She denies any previous history of seizure disorder, and is not taking any medication for such. Daughter also reports strong family history of bipolar disease. The patient has occasional visual hallucinations which are nonthreatening, normally animals not people, and that she seems depressed since she was discharged last time. He is concerned for her safety with her falling out of bed and reports that she possibly would be better suited in short-term rehab for PT/OT. Principal Diagnosis Acute Metabolic Encephalopathy Discharge Exam Constitutional: WD/WN, vitals as above Eyes: EOM intact bilaterally; no conjunctival abnormality ENMT: external ear and nose normal, oropharynx normal Neck: trachea midline, no thyromegaly normal visual inspection Respiratory: normal respiratory effort, lungs clear to auscultation no respiratory distress Cardiovascular: RRR, no murmur, no edema Gastrointestinal (Abdomen): Inspection/Auscultation: abdomen normal to inspection; abdomen not distended Musculoskeletal: no cyanosis or clubbing, extremities motor strength 5/5 Skin: no rashes, warm and dry Neurologic: moves all extremities and awake Psychiatric: Orientation: alert, oriented to person and cooperative Discharge Data Allergies Allergy/AdvReac Type Severity Reaction Status Date / Time No Known Allergies Allergy Verified 05/01/20 04:55 Consultations 05/01/20 07:14 ED Decision to Admit Stat 05/01/20 10:34 Consult Case Management - Discharge Planning Routine 05/01/20 12:06 Consult General Surgery Routine 05/02/20 15:48 Consult Gastroenterology Routine 05/03/20 12:28 Consult Neurology Routine Ordered Studies 05/01/20 04:45 CT head/brain wo con Urgent 05/01/20 05:18 CT abd pelvis IV con only Urgent 05/01/20 10:34 gallbladder Stat Hospital Course (1) Acute metabolic encephalopathy: Presented with confusion, agitation, and "thrashing" of her arms and legs most of the day for the 3 days prior to admission as per daughter. She was febrile upon arrival with a possible source of colitis for infection. Alert and oriented today, no further dyskinesias noted TSH wnl, B12 high. - Continues to be stable today. Moved back to med-surg. Doing well today. -Completed antibiotics.. (2) Sepsis: Patient now with 3 inpatient stays in the last month or so. The first was for a left lower lobe pneumonia and ESBL E. coli UTI. She was discharged home on doxycycline and Macrobid at that time. She then returned with altered mental status and was found to have a Pseudomonas bacteremia. Her urine at that time did not show evidence of infection, and the source of the Pseudomonas was not found. Nonetheless, she was sent to home to finish out a 14-day course of Cipro. She returned for this admission 5 days later with recurrent fever and altered mental status as well as nausea and vomiting. -CT abdomen/pelvis completed showing nonspecific colitis of the proximal descending colon, and mild biliary ductal dilatation -Gallbladder ultrasound was performed which showed moderately dilated gallbladder and mildly increased biliary ductal dilatation, CBD 1.1 cm, no pericholecystic fluid or gallbladder wall thickening HIDA scan was completed which showed no evidence of acute cholecystitis -Tmax 38.1 on arrival, WBC = 10.97, lactic acid =1.2. Remains afebrile now and leukocytosis is resolved after being treated with IV Zosyn LFTs are normal COVID-19 test was negative Blood cultures were drawn-no growth to date It is possible that she has a GI source of her previous Pseudomonas bacteremia- the colitis is possibly the source -Per GI, patient refused invasive workup and does not want a colonoscopy. I discussed with patient and she is quite adamant that she does not want one. Her daughter reports she has never had one in the past. - GI recommends 10 days abx. -Continue IV Zosyn which covers for previous Pseudomonas bacteremia as well as other GI pathogens - Continue abx until 05/11/2020. (3) Colitis: suspected infectious colitis Continue IV Zosyn Consult GI - recommendations as above (4) Parkinson disease: -History of such, with severe dyskinesias on 05/04- which her daughter had described happening at home as well that resulted in a fall out of bed. On 05/06 they were severe enough that patient was a risk to herself as she was accidentally hitting herself in the head and pitching herself around the bed. She also seemed less able to protect her airway, catching in her throat and then spluttering and coughing. Required 1.5 mg Ativan05/06 to control movements and give patient the ability to rest which succeeded somewhat but with relapses of movement throughout the day - continue amantadine 100 mg BID, - Neuro consulted - Recommend weaning off of Stalevo and converting to long acting Sinemet. Given patient's symptoms 05/06, changed Sinemet CR 50/200mg 2 tabs to bid, keep entacapone at 200mg tid and Buspar bid was initiated as this can help with dyskinesias. Patient with significant improvement on 05/07. Even better today. No significant dyskinesias in 2 days. Recommendations: from Neuro 1. decrease Entacapone to 200 mg twice a day, taken with the Sinemet. Entacapone by itself does very little and must be given with Sinemet to augment it. 2. amantadine 100 mg twice a day can be continued although I am not sure what is adding to her treatment plan at this time. This could be addressed as an outpatient. 3. continue carbidopa/ levodopa ER 50/200, 2 tablets in the morning and 2 in the evening. 4. buspirone was given for dyskinesia. At this point, I am not certain she needs this, but it can be continued for now and addressed as an outpatient 5. Increase activity as able and consider physical therapy. (5) Diabetes mellitus: -ISS with Accu-Cheks AC at bedtime -Holding metformin from home -Last A1c on 04/14 was 6.6 -Sliding scale insulin for now - bsgs today at 120-180. Good range for inpatient. (6) Fall: -PT/OT consults -Fall precautions with Parkinsons - patient is fairly ambulatory with walker at baseline. (7) Dementia: - mild, intermittent confusion but the patient is alert and oriented x3 -Supportive care (8) Ambulatory dysfunction: -As above PT/OT (9) Hypertension: Not on medication for this at home. BP here has been intermittently normal up to 155/85. - Monitor (10) Hypomagnesemia: - Mag 1.6 on admission, replaced and resolved (11) Bullous pemphigoid: Hold azathioprine while being treated for infection (12) Joint pain: Continue lidoderm for left shoulder pain. (13) Left hand pain: Persistent - Xray without fracture, shows arthritis (14) Paroxysmal atrial fibrillation: As seen on telemetry from 12:04 to 12:25 and then returned to sinus rhythm. Her CHADS-Vasc is 5. Justyna Dalton had long discussion with patient about risks and benefits of anticoagulation and that she recommended anticoagulation for her. She declines starting blood thinners at this point. Ms. Dalton also discussed with her daughter and that Ms. Nicole did not want to be anticoagulated. Ms. Nicole did say she wanted to think about it more. This could be revisited by her PCP after discharge. - Outpatient discussion (15) DVT prophylaxis: - teds Lovenox SQ CODE: DNR/DNI Total Time Total Time Spent Total Time Spent (In Minutes): 32 Total Time Includes: Examination of the Patient, Discharge Planning and Medication Reconciliation Discharge Plan Discharge Items Patient Disposition: Transfer Inpatient Rehab Fac Reason For Visit: Illness Discharge Diagnosis: colitis Activity: Resume your previous activity Non-emergency contact: Primary Care Provider Call non-emergency contact if: you have any medication questions Follow-up/Referrals: Kojo Cohen [Primary Care Provider] - Diet: Carb Consistent or DM2 Diet Texture: Pureed (blended smooth) Addtl Attending Provider Instructions: You were admitted for colitis. You were treated with antibiotics and completed your course in the hospital. [facility]. Neurolgy Recommendations: 1. continue Entacapone to 200 mg twice a day, taken with the Sinemet. Entacapone by itself does very little and must be given with Sinemet to augment it. 2. amantadine 100 mg twice a day can be continued although I am not sure what is adding to her treatment plan at this time. This could be addressed as an outpatient. 3. continue carbidopa/ levodopa ER 50/200, 2 tablets in the morning and 2 in the evening. 4. buspirone was given for dyskinesia. At this point, I am not certain she needs this, but it can be continued for now and addressed as an outpatient 5. Increase activity as able and consider physical therapy. 6. You could be seen as an outpatient by Dr. Parra (if she does not already have a neurologist somewhere else). 7. Recommend followup with PCP in 1-2 weeks and Neuro in about 1 month. Pending Studies at Discharge: No Stand-Alone Forms: My [facility] Skilled Items Patient informed of condition?: No DNR: Yes (DNR/DNI) Discharge Level of Care: Acute rehab Communicable Disease: No Discharge Prognosis: Stable Lines: None Urinary Catheter: No Medications and DC Order Prescriptions: New buspirone 5 mg Tablet 5 mg PO BID Qty: 60 RF: 0 carbidopa-levodopa 50-200 mg Tablet Extended Release 2 tab PO BID Qty: 120 RF: 0 entacapone 200 mg Tablet 200 mg PO 0700,1900 Qty: 60 RF: 0 lidocaine 5 % Adhesive Patch,Medicated 1 patch transdermal QAM Qty: 0 RF: 0 acetaminophen 325 mg Tablet 650 mg PO Q4H PRN (Reason: pain) Qty: 30 RF: 0 Continued amantadine HCl 100 mg capsule 100 mg PO BID RF: 0 cyanocobalamin (vitamin B-12) 1,000 mcg/mL Solution 1,000 mcg IM MONTHLY RF: 0 aspirin [Aspir-81] 81 mg Tablet,Delayed Release (Dr/Ec) 81 mg PO DAILY RF: 0 acetaminophen [Tylenol Extra Strength] 500 mg Tablet 500 mg PO QID PRN (Reason: Pain) RF: 0 metformin 1,000 mg Tablet 1,000 mg PO BID RF: 0 nystatin-triamcinolone 100,000-0.1 unit/g-% Cream 1 applic TOPICAL BID PRN (Reason: UNDER BREAST PRN) RF: 0 clobetasol 0.05 % cream 1 applic TOPICAL BID RF: 0 hydrocortisone 2.5 % Cream 1 applic TOPICAL BID PRN (Reason: Skin Irritation) RF: 0 multivitamin Tablet,Chewable 1 tab PO DAILY RF: 0 azathioprine [Imuran] 50 mg tablet 50 mg PO DAILY Qty: 30 RF: 0 Discontinued tramadol [Ultram] 50 mg tablet 50 mg PO Q6 PRN (Reason: Pain) RF: 0 onsxgnein-dsaprzkj-ndltccmezn 25-100-200 mg Tablet 2 tab PO QID RF: 0 ciprofloxacin HCl [Cipro] 500 mg tablet 500 mg PO BID Qty: 18 RF: 0 carbidopa-levodopa 50-200 mg Tablet Extended Release 1 tab PO HS RF: 0 Discharge Orders: Discharge Order (Routine); Ordered 05/11/20 Ordered By: Raj Stallworth Admission Data Admit Date/Time: 05/02/20 15:48 Attending Provider: Raj Stallworth Admit Provider: Denise Mchugh Primary Care Provider: Kojo Cohen Other Providers: [facility], ; [facility] ; [facility] ; [facility] ; Demian Dean ; Genny Harvey ; Morgan Moffett ; Genny Parra Other Interventions: Discharge Summary Assessment (RN) Last Done: 05/11/20 11:24 DC Date/Time DO NOT enter until pt leaves facility: 05/11/20 14:40 Coding Level of Care Code D/C Day Management >30 mins Diagnoses Acute metabolic encephalopathy G93.41 Sepsis A41.9; R65.20; G93.40 Sepsis acute organ dysfunction status: with acute organ dysfunction Sepsis type: sepsis due to unspecified organism Severe sepsis acute organ dysfunction type: encephalopathy Severe sepsis shock status: without septic shock Colitis K52.9 Parkinson disease G20 Diabetes mellitus E11.9 Fall [id number] Encounter type: initial encounter Dementia F03.91 Dementia behavioral disturbance: with behavioral disturbance Dementia type: unspecified type Ambulatory dysfunction R26.2 Hypertension I10 Hypertension type: essential hypertension Hypomagnesemia E83.42 Bullous pemphigoid L12.0 Joint pain M25.50 Left hand pain M79.642 Paroxysmal atrial fibrillation I48.0 DVT prophylaxis Z29.9 Time Spent (min) 32
== END 2020-05-11 14:40 | DRG 871 ==
LOC: ED 04:26 → 3N 04:26 → SUATTDRO 05-02 15:48 → 2E 05-06 09:07 → 2N 05-08 14:02

== ENCOUNTER 2020-10-18 10:40 | Inpatient (IN) ==
[2020-10-18] MEDS ORDERED: ONDANSETRON INJ 2 MG/ML 2 ML VIAL IV STA ×2 (11:06→12:30)
[2020-10-18] MEDS ORDERED: SODIUM CHLORIDE 0.9% 500 ML IV SCH (11:15)
[2020-10-18 11:34] LABS: Hematocrit (blood only) 36.2 % (37-47); Hemoglobin 12.4 g/dL (12.0-16.0); Mean Corpuscular Hgb Conc 34.3 g/dL (32-36); Mean Corpuscular Volume 87.7 fL (80-100); Mean Platelet Volume 9.7 fL (7.4-10.4); Platelet Count 765 K/uL (130-400); RDW Coefficient of Variation 16.2 % (11.5-14.5); RDW Standard Deviation 51.4 fL (36.4-46.3); Red Blood Count 4.13 M/uL (4.2-5.4); White Blood Count 20.75 K/uL (4.8-10.8)
[2020-10-18 11:52] LABS: INR 1.8 (0.9-1.1); Partial Thromboplastin Ratio 1.1; Partial Thromboplastin Time 30.5 Seconds (21.0-31.0); Prothrombin Time 18.4 Seconds (9.0-12.0)
[2020-10-18 11:54] LABS: Alanine Aminotransferase 7 U/L (12-78); Aspartate Aminotransferase 6 U/L (15-37); BUN Creatinine Ratio 22.3 (10-20); Blood Urea Nitrogen 44 mg/dl (7-18); Calcium 9.9 mg/dl (8.5-10.1); Carbon Dioxide 23 mmol/L (21-32); Chloride 95 mmol/L (98-107); Est GFR (African American) 27.3; Est GFR (Non-African American) 23.5; Glucose 191 mg/dl (70-99); Sodium 133 mmol/L (136-145)
[2020-10-18] MEDS ORDERED: SODIUM CHLORIDE 0.9% 1000ML 1,000 ML IV STA (11:54)
[2020-10-18 11:58] LABS: Albumin Globulin Ratio 0.7 (0.9-2); Alkaline Phosphatase 97 U/L (45-117); Bilirubin,Total 0.4 mg/dl (0.2-1); Troponin I < 0.015 ng/ml (0-0.045)
[2020-10-18 12:46] LABS: Basophils # (auto) 0.01 K/uL (0-0.2); Immature Granulocytes # (auto) 0.05 K/uL (0.00-0.02); Immature Granulocytes % (auto) 0.2 %; Lymphocytes # (auto) 2.15 K/uL (1.2-3.4); Lymphocytes % (auto) 10.4 %; Monocytes # (auto) 0.43 K/uL (0.11-0.59); Monocytes % (auto) 2.1 %; Neutrophils # (auto) 18.11 K/uL (1.4-6.5); Neutrophils % (auto) 87.3 %
--- NOTE | 2020-10-18 13:09 | CT Scan Report ---
CT SCAN OF THE ABDOMEN AND PELVIS WITHOUT CONTRAST CLINICAL HISTORY: vomiting, abdominal pain x3 days COMPARISON STUDY: 05/01/2020 TECHNIQUE: CT scan of the abdomen and pelvis was performed from the lung bases to the proximal femurs . Images are reviewed in the axial, sagittal, and coronal planes. IV contrast was not administered fo r this examination. A dose lowering technique was utilized adhering to the principles of ALARA. CT DOSE: 364.31 mGy.cm FINDINGS: Lower chest: There are trace bilateral pleural effusions. There is a trace pericardial effusion. Ther e is mild left basilar atelectasis. Liver: The unenhanced liver is normal in size, contour, and attenuation. There is no intrahepatic cecelia iary ductal dilatation. Gallbladder: Mildly distended. No calculi identified. Spleen: Normal in size and attenuation. Pancreas: Atrophic. Stable 8 mm hypodensity within adjacent to the pancreatic tail. This may represen t a side branch IPMN. Adrenal glands: Mild nodular thickening unchanged from the prior study Kidneys: There is no hydronephrosis. There is a nonobstructing 3 mm lower pole right renal calculus. Bowel: There is small bowel and colonic dilatation to the level of the splenic flexure where there is abnormal bowel wall thickening. There is mild infiltration of pericolonic fat. There is enlarged 12 mm pericolonic lymph node. The findings are viewed as suspicious for a colonic neoplasm. GI consultat ion for endoscopic correlation is recommended. Peritoneum: There is no free air. There is trace free fluid within the pelvis. Vasculature: The abdominal aorta is normal in course and caliber. Adenopathy: There is enlarged left pericolonic lymph node the level of splenic flexure as described a gia. Pelvic viscera: No pathologic pelvic masses are visualized on this noncontrast study. Skeletal structures: No destructive osseous lesions are seen. IMPRESSION: 1. Dilated large and small bowel loops to the level of the splenic flexure. The findings are consiste nt with a partial colonic obstruction. At this level there is pathologic bowel wall thickening, and t here is an enlarged pericolonic lymph node. An obstructing colonic neoplasm is the diagnosis of exclu huyen. GI consultation for endoscopic correlation is recommended. 2. Right-sided nephrolithiasis. No ureteral or bladder calculi identified. ACT 112: Negative or not required by law. Electronically signed by: Dwight Magana M.D. 10/18/2020 1:07 PM
--- NOTE | 2020-10-18 14:35 | Electrocardiogram Report ---
Test Reason : Blood Pressure : / mmHG Vent. Rate : 118 BPM Atrial Rate : 118 BPM P-R Int : 154 ms QRS Dur : 076 ms QT Int : 332 ms P-R-T Axes : 054 -26 059 degrees QTc Int : 465 ms Sinus tachycardia Voltage criteria for left ventricular hypertrophy Poor R wave progression, consider anterior TN vs. lead placement vs. LVH Abnormal ECG When compared with ECG of 01-MAY-2020 04:39, No significant change was found Confirmed by Henrique Swenson ([id number]) on 10/18/2020 2:35:21 PM Referred By: Confirmed By:Henrique Swenson
--- NOTE | 2020-10-18 15:20 | History & Physical Report ---
Date of Service October 18, 2020 Assessment & Plan (1) Small bowel obstruction: -We will keep the patient n.p.o. -Hydrate with IV fluids -Continue NG tube to low continuous suction -Obtain surgical consultation -Due to the colonic wall thickening noted on CAT scan we will obtain a GI consult -Provide antiemetics (2) Acute kidney injury: -The acute kidney injury may be prerenal based on dehydration as the patient has not had any meaningful oral intake that she reports that approximately 1 week. -We will hydrate with IV fluids as noted above -Will avoid nephrotoxins -Follow serial labs (3) Coagulopathy: -Cause of this is unclear as the patient does not take Coumadin -We will repeat labs in the morning (4) Diabetes mellitus: -the Patient takes Metformin for this condition which we will hold. -We will follow her glucose levels and use sliding scale insulin. (5) Leukocytosis: -May be related to the stress from her acute illness. -We will follow serial labs History of Present Illness Chief Complaint: Nausea and vomiting Primary Care Provider: Kojo Cohen This is an 80-year-old female who presented to the [facility] emergency department due to 1 to 2 weeks of not feeling well. Patient notes that she has had abdominal pain and has developed nausea vomiting. She notes over the past week or so her appetite is not very good. She cannot tell me when her most recent bowel movement was. Upon presentation to the emergency department patient had labs drawn were CBC revealed white blood cell count was 20.75, hemoglobin hematocrit were 12.4 and 36.2 and her platelet count was 765,000. Patient had an INR of 1.8. Chemistry profile showed sodium was 133 potassium 5.0, her BUN and creatinine were 44 and 1.95. She did not have any significant elevation of her LFTs. A COVID-19 test was noted to be negative. She did undergo a CAT scan which revealed the patient had some dilated large and small bowel loops to the level splenic flexure singh rning for a partial colonic obstruction. She is also noted to have some bowel wall thickening that was felt to be pathologic in nature as well as an enlarged pericolonic lymph node. Since arrival to the emergency department she has had an NG tube placed with approximately 5 to 600 cc of brown material retrieved. Patient does note that she has had some symptomatic relief since this has been placed. At the time of my visit she was noted to be in no distress. The patient notes that in event of cardiopulmonary arrest she did not want to be resuscitated she would therefore be a level 5 DO NOT RESUSCITATE. This was confirmed with her daughter who I updated by phone. Allergies Allergy/AdvReac Type Severity Reaction Status Date / Time No Known Allergies Allergy Verified 10/18/20 11:03 Home Medications Medication Instructions Recorded Confirmed Type acetaminophen [Tylenol Extra 500 mg PO QID PRN 07/14/18 10/18/20 History Strength] amantadine HCl 100 mg PO BID 07/14/18 10/18/20 History cyanocobalamin (vitamin B-12) 1,000 mcg IM MONTHLY 07/14/18 10/18/20 History clobetasol 1 applic TOPICAL BID 04/13/20 10/18/20 History hydrocortisone 1 applic TOPICAL BID PRN 04/13/20 10/18/20 History metformin 1,000 mg PO BID 04/13/20 10/18/20 History nystatin-triamcinolone 1 applic TOPICAL BID PRN 04/13/20 10/18/20 History acetaminophen 650 mg PO Q4H PRN #30 tab 05/11/20 10/18/20 Rx azathioprine [Imuran] 50 mg PO DAILY #30 tab 05/11/20 10/18/20 Rx buspirone 5 mg PO BID #60 tab 05/11/20 10/18/20 Rx carbidopa-levodopa 2 tab PO BID #120 tab 05/11/20 10/18/20 Rx aspirin [Aspirin Low-Strength] 81 mg PO DAILY 10/18/20 10/18/20 History mroemol-qpnquebff-weak 1 tab PO DAILY 10/18/20 10/18/20 History [id number]-nws-[id number]-[id number]-[id number] 1 tab PO DAILY 10/18/20 10/18/20 History [Theragran-M Premier 50 Plus] tramadol 50 mg PO Q6H 10/18/20 10/18/20 History Past Med/Surg History Medical History (Updated 10/20/20 @ 12:31 by Kayla Ellis MD) Diabetes Hypertension Paroxysmal atrial fibrillation QT prolongation Urinary tract infection Family History Other Aneurysm Stroke Social History Smoking Status: Former smoker Tobacco Type: Pipe Second Hand Exposure: No; Do You Dip or Chew Tobacco: No; Tobacco Cessation Education Requested by Patient: No Hx Alcohol Use: No Hx Substance Use: No Preferred Language: Cape Verdean Communication Ability: Effective 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 Beliefs That Will Affect Care: None marital status: Single Current Living Situation: Family Current Living Situation Comment: lives with daughter Other Information That Helps Us Care for You: No Feels Safe at Home: Yes Safety Concerns: Feels Safe At This Time Assistive Devices: Denture - Upper Review of Systems Constitutional: + fatigue; no fever and no chills Eyes: no diplopia Ear, Nose, Mouth, Throat: no ear pain Respiratory: no cough and no dyspnea Cardiovascular: no chest pain Gastrointestinal: + abdominal pain, + nausea and + vomiting; no diarrhea/loose stools Genitourinary: no dysuria Musculoskeletal: no back pain Integumentary: no rash Neurologic: no localized weakness Physical Exam Constitutional: + thin; no acute distress Eyes: no conjunctival abnormality ENMT: Ears: no hearing impairment Neck: trachea midline Respiratory: normal respiratory effort; no respiratory distress and no labored breathing Breath sounds are slightly decreased at the bases Cardiovascular: Rate/Rhythm: regular rate and regular rhythm Gastrointestinal (Abdomen): Inspection/Auscultation: + abdomen distended (mild) Percussion/Palpation: + abdomen tender (LLQ) and abdomen soft No rebound tenderness or guarding Musculoskeletal: No calf tenderness, no nonhealing foot wounds Skin: no rashes, warm and dry Neurologic: moves all extremities Psychiatric: Orientation: alert and oriented x 3 Results & Data Results & Data ([facility]) Vital Signs (Past 12 Hours) Vital Signs Temp Pulse Pulse Resp BP BP Pulse Ox 10/18/20 14:31 102 H 22 95 10/18/20 14:30 102 H 24 117/72 94 10/18/20 14:00 103 H 20 120/74 95 10/18/20 13:30 101 H 20 150/101 H 95 10/18/20 13:18 101 H 21 134/80 96 10/18/20 13:00 102 H 20 10/18/20 12:54 36.7 C 103 H 22 137/75 96 10/18/20 12:51 103 H 21 137/75 96 01/04/21 12:32 104 H 20 96 10/18/20 12:31 104 H 20 133/85 97 10/18/20 12:30 104 H 20 95 10/18/20 12:01 105 H 22 97 10/18/20 12:00 105 H 20 116/74 97 10/18/20 11:31 108 H 24 95 10/18/20 11:30 108 H 22 113/74 96 10/18/20 11:15 114 H 20 96 10/18/20 11:02 117 H 22 95 10/18/20 11:01 117 H 20 118/82 96 10/18/20 11:00 117 H 22 93 10/18/20 10:59 117 H 22 96 10/18/20 10:52 36.4 C L 118 H 118 H 20 104/83 104/83 96 10/18/20 10:49 116 H 20 104/83 96 Supervising Physician Co-Signing Physician Notes I personally saw and examined the patient. I verified all basurto points and agree with ELYSSA Lisa with the following exceptions and/or additions: 80 year old female with suspected colon obstruction. Declines surgical intervention or colonoscopy but unclear competency to make this decision going forward. Her main concern with me was removing her dentures. O/E improved distension following NG tube, mild generalized abdominal pain without rebound or guarding. very dry mucus membranes A/P Colon obstruction - NG tube, IV fluids, CEA added to morning labs, consult surgery and gastroenterology PG Care Time/CCT Total # of Minutes Spent Total Time Spent with Patient: Total time spent is greater than 50% in coordination of care (as documented) at patient's floor/unit and/or counseling patient: Coding Level of Care Code 08984 Initial Inpt Care Lvl 2 Diagnoses Small bowel obstruction K56.609 Acute kidney injury N17.9 Coagulopathy D68.9 Diabetes mellitus E11.9 Leukocytosis D72.829
--- NOTE | 2020-10-18 15:26 | Surgery Consultation ---
Date of Consultation October 18, 2020 Assessment & Plan (1) Bowel obstruction: pt is a 80 year-old female who presents to Er with nausea, vomiting, weakness, IMP: bowel obstruction, colon mass, acute renal failure no emergent surgery indication now, I agrees with hospitalist conservative treatment, NG tube, IV fluid, GI consult for colonoscopy, iv antibiotic zosyn, repeat labs in am, will F/U Present on Admission?: Yes History of Present Illness History of Present Illness CC: nausea, vomiting, weakness HPI: pt is a 80 year-old female who presents to ER with 4-5 days history nausea , vomiting, weakness and some abdominal pain, the pain is located st epigastric area, pt said the abdominal pain is mild, pt could not recall her last BM, pt has never had colonoscopy in the past,pt denies bloody stool, no diarrhea, no fever. pt has significant PMH-paroxysmal A-fib, colitis, sepsis parkinson disease, dementia, fall, bilateral leg weakness, HTN, prolonged Q-T, Allergies Allergy/AdvReac Type Severity Reaction Status Date / Time No Known Allergies Allergy Verified 10/18/20 11:03 Home Medications Medication Instructions Recorded Confirmed Type acetaminophen [Tylenol Extra 500 mg PO QID PRN 07/14/18 10/18/20 History Strength] amantadine HCl 100 mg PO BID 07/14/18 10/18/20 History cyanocobalamin (vitamin B-12) 1,000 mcg IM MONTHLY 07/14/18 10/18/20 History clobetasol 1 applic TOPICAL BID 04/13/20 10/18/20 History hydrocortisone 1 applic TOPICAL BID PRN 04/13/20 10/18/20 History metformin 1,000 mg PO BID 04/13/20 10/18/20 History nystatin-triamcinolone 1 applic TOPICAL BID PRN 04/13/20 10/18/20 History acetaminophen 650 mg PO Q4H PRN #30 tab 05/11/20 10/18/20 Rx azathioprine [Imuran] 50 mg PO DAILY #30 tab 05/11/20 10/18/20 Rx buspirone 5 mg PO BID #60 tab 05/11/20 10/18/20 Rx carbidopa-levodopa 2 tab PO BID #120 tab 05/11/20 10/18/20 Rx aspirin [Aspirin Low-Strength] 81 mg PO DAILY 10/18/20 10/18/20 History qiraodf-fsqtfmzeb-bcyc 1 tab PO DAILY 10/18/20 10/18/20 History bz-nji-[id number]-[id number]-vqdgocs-vxjclr 1 tab PO DAILY 10/18/20 10/18/20 History [Theragran-M Premier 50 Plus] tramadol 50 mg PO Q6H 10/18/20 10/18/20 History Patient History Medical History (Updated 10/18/20 @ 15:33 by Edy Goldman MD) Diabetes Hypertension Paroxysmal atrial fibrillation QT prolongation Urinary tract infection Family History Other Aneurysm Stroke Social History Smoking Status: Former smoker Tobacco Type: Pipe Hx Alcohol Use: No Hx Substance Use: No Preferred Language: Eritrean Communication Ability: Effective 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 Beliefs That Will Affect Care: None marital status: / Current Living Situation: Family Current Living Situation Comment: [facility] Feels Safe at Home: Yes Assistive Devices: Denture - Upper and Wheelchair Review of Systems Review of Systems: All systems reviewed & are unremarkable except as noted in HPI & below Constitutional: as per Subjective / HPI Eyes: as per Subjective / HPI Ear, Nose, Mouth, Throat: as per Subjective / HPI Respiratory: as per Subjective / HPI Cardiovascular: as per Subjective / HPI Additional Comments: HTN, paroxysmal A-fib, prolong-Q-T Gastrointestinal: as per Subjective / HPI colitis Genitourinary: as per Subjective / HPI Musculoskeletal: as per Subjective / HPI joint pain, weakness on legs Integumentary: as per Subjective / HPI Neurologic: as per Subjective / HPI dementia Psychiatric: as per Subjective / HPI Endocrine: as per Subjective / HPI Hematologic / Lymphatic: as per Subjective / HPI Allergy / Immunological: as per Subjective / HPI Physical Exam Constitutional: WD/WN, vitals as above well developed and well nourished Eyes: PERRL, conjunctivae normal, anicteric sclerae ENMT: external ear and nose normal, oropharynx normal Neck: trachea midline, no thyromegaly Respiratory: normal respiratory effort, lungs clear to auscultation normal respiratory effort Cardiovascular: RRR, no murmur, no edema Rate/Rhythm: regular rate and regular rhythm Gastrointestinal (Abdomen): Percussion/Palpation: abdomen soft mild tenderness at upper abdomen, no distend, no rebound pain, BS + Musculoskeletal: no edema on lower legs Skin: no rashes, warm and dry Neurologic: awake Psychiatric: Orientation: alert, oriented to place and cooperative Results & Data ([facility]) Vital Signs (Past 12 Hours) Vital Signs Temp Pulse Pulse Resp BP BP Pulse Ox 10/18/20 14:31 102 H 22 95 10/18/20 14:30 102 H 24 117/72 94 10/18/20 14:00 103 H 20 120/74 95 10/18/20 13:30 101 H 20 150/101 H 95 10/18/20 13:18 101 H 21 134/80 96 10/18/20 13:00 102 H 20 10/18/20 12:54 36.7 C 103 H 22 137/75 96 10/18/20 12:51 103 H 21 137/75 96 10/18/20 12:32 104 H 20 96 10/18/20 12:31 104 H 20 133/85 97 10/18/20 12:30 104 H 20 95 10/18/20 12:01 105 H 22 97 10/18/20 12:00 105 H 20 116/74 97 10/18/20 11:31 108 H 24 95 10/18/20 11:30 108 H 22 113/74 96 10/18/20 11:15 114 H 20 96 10/18/20 11:02 117 H 22 95 10/18/20 11:01 117 H 20 118/82 96 10/18/20 11:00 117 H 22 93 10/18/20 10:59 117 H 22 96 10/18/20 10:52 36.4 C L 118 H 118 H 20 104/83 104/83 96 10/18/20 10:49 116 H 20 104/83 96 Laboratory Results Abnormal lab results 10/18/20 10/18/20 10/18/20 Range/Units 11:21 11:21 11:21 WBC 20.75 H (4.8-10.8) K/uL RBC 4.13 L (4.2-5.4) M/uL Hct 36.2 L (37-47) % RDW Std Deviation 51.4 H (36.4-46.3) fL RDW Coeff of Segundo 16.2 H (11.5-14.5) % Plt Count 765 H (130-400) K/uL Neut # (Auto) 18.11 H (1.4-6.5) K/uL Immature Gran # (Auto) 0.05 H (0.00-0.02) K/uL PT 18.4 H (9.0-12.0) Seconds INR 1.8 H (0.9-1.1) Sodium 133 L (136-145) mmol/L Chloride 95 L (98-107) mmol/L Anion Gap 16.0 H (3-11) BUN 44 H (7-18) mg/dl Creatinine 1.95 H (0.6-1.2) mg/dl BUN/Creatinine Ratio 22.3 H (10-20) Glucose 191 H (70-99) mg/dl AST 6 L (15-37) U/L ALT 7 L (12-78) U/L Albumin 3.0 L (3.4-5.0) gm/dl Albumin/Globulin Ratio 0.7 L (0.9-2) Diagnostic Findings CT SCAN OF THE ABDOMEN AND PELVIS WITHOUT CONTRAST CLINICAL HISTORY: vomiting, abdominal pain x3 days COMPARISON STUDY: 05/01/2020 TECHNIQUE: CT scan of the abdomen and pelvis was performed from the lung bases to the proximal femurs. Images are reviewed in the axial, sagittal, and coronal planes. IV contrast was not administered for this examination. A dose lowering technique was utilized adhering to the principles of ALARA. CT DOSE: 364.31 mGy.cm FINDINGS: Lower chest: There are trace bilateral pleural effusions. There is a trace pericardial effusion. There is mild left basilar atelectasis. Liver: The unenhanced liver is normal in size, contour, and attenuation. There is no intrahepatic biliary ductal dilatation. Gallbladder: Mildly distended. No calculi identified. Spleen: Normal in size and attenuation. Pancreas: Atrophic. Stable 8 mm hypodensity within adjacent to the pancreatic tail. This may represent a side branch IPMN. Adrenal glands: Mild nodular thickening unchanged from the prior study Kidneys: There is no hydronephrosis. There is a nonobstructing 3 mm lower pole right renal calculus. Bowel: There is small bowel and colonic dilatation to the level of the splenic flexure where there is abnormal bowel wall thickening. There is mild infiltration of pericolonic fat. There is enlarged 12 mm pericolonic lymph node. The findings are viewed as suspicious for a colonic neoplasm. GI consultation for endoscopic correlation is recommended. Peritoneum: There is no free air. There is trace free fluid within the pelvis. Vasculature: The abdominal aorta is normal in course and caliber. Adenopathy: There is enlarged left pericolonic lymph node the level of splenic flexure as described above. Pelvic viscera: No pathologic pelvic masses are visualized on this noncontrast study. Skeletal structures: No destructive osseous lesions are seen. IMPRESSION: 1. Dilated large and small bowel loops to the level of the splenic flexure. The findings are consistent with a partial colonic obstruction. At this level there is pathologic bowel wall thickening, and there is an enlarged pericolonic lymph node. An obstructing colonic neoplasm is the diagnosis of exclusion. GI consultation for endoscopic correlation is recommended. 2. Right-sided nephrolithiasis. No ureteral or bladder calculi identified.
--- NOTE | 2020-10-18 15:38 | Emergency Department Note ---
Impression & Plan Bowel obstruction, Nausea & vomiting, Acute renal failure, Acute dehydration ED Provider Note INFORMANT: Patient ED PROVIDER(S): Edy Goldman MD CHIEF COMPLAINT: Nausea and vomiting PLAN: Disposition: Admitted Condition: Good Outpatient prescription management: none Referral: None MEDICAL DECISION MAKING: Patient presented to the emergency department because of nausea and vomiting. She had abdominal distention. An IV was established. She was hydrated and given IV Zofran. She was feeling better with this. The nausea vomiting stopped. She underwent CT imaging and was found to have a bowel obstruction which could be coming from mass around the splenic flexure. She had an NG tube placed. The patient's laboratory findings were concerning for acute renal failure as well. Likely this is due to dehydration. Further management in the hospital will be necessary. Consultation was made with the hospitalist service as well as general surgery. The patient was evaluated in the ER and admitted for further management. Triage Nursing notes reviewed and agree them. Vital Signs: reviewed and remarkable for no significant abnormalities Differential diagnosis: Etiologies such as gastroenteritis, obstruction food borne illness, infections, appendicitis, diverticulitis, inflammatory bowel disease, GI bleed, biliary pathology, as well as others were entertained. Diagnostics interpreted by me: ECG: Twelve-lead ECG reveals sinus tachycardia at 118 bpm. LVH. Poor R wave progression. No ST elevation. Normal axis and QRS. Cardiac Monitoring: Cardiac monitoring ordered by me: The patient was placed on continuous cardiac monitoring and observed. It revealed a sinus tachycardia at 105 beats per minute without ectopy or evidence of dysrhythmia. Imaging studies: CT scan of the inner pelvis is consistent with a bowel obstruction. Concerning for mass at splenic flexure. Consultation(s): General surgery, Dr. Rios Hospitalist, Dr. Trejo HPI: The patient is a 80 year old female who presents to the Emergency Room with complaints of nausea and vomiting. This started several days ago and is worsening. The patient also notes the following associated symptoms, abdominal distention, pain, and fatigue. She also has dry mouth. The patient has found no relieving factors. Current pain is rated as 6/10. Pt denies LOC, headache, fevers, chills, diaphoresis, visual changes, neck pain, chest pain, breathing difficulties, back pain, melena, hematochezia, urinary symptoms, numbness, weakness, lymphadenopathy, rash, or other complaints. ROS: See above HPI for pertinent positives & negatives. A total of 10 systems reviewed and were otherwise negative. PAST MEDICAL HISTORY:See Below, paroxysmal A. fib, sepsis PAST SURGICAL HISTORY:See Below, FAMILY HISTORY:See Below SOCIAL HISTORY:See Below, retired HOME MEDICATIONS:See Below ALLERGIES:See Below VITALS:See Below PHYSICAL EXAMINATION: GENERAL: Awake, alert, uncomfortable-appearing, in no distress HENT: Normocephalic, atraumatic. Oropharynx unremarkable. EYES: Normal conjunctiva. Sclera non-icteric. NECK: Inspection normal. Non-tender. Supple. No nuchal rigidity. FROM. No masses. RESPIRATORY: Clear to auscultation. No wheezes. No rales. Normal respiratory effort. CARDIAC: Borderline tachycardic rate. Normal rhythm. No murmurs. No rubs. Extremities warm and well perfused. Pulses equal. No JVD. GI: Soft, moderately-distended. Epigastrium tenderness to palpation. No rebound or guarding. No masses. RECTAL: Deferred. MUSCULOSKELETAL: Atraumatic. Chest examination reveals no tenderness. The back is symmetrical on inspection without obvious abnormality. There is no CVA tenderness to palpation. No joint edema. LOWER EXTREMITIES: Calves are equal size bilaterally and non-tender. No edema. No discoloration. NEURO: Normal sensorium. No sensory or motor deficits noted. SKIN: No rash or jaundice noted. Edy Goldman MD Past Med/Surg History Medical History (Updated 10/18/20 @ 15:33 by Edy Goldman MD) Diabetes Hypertension Paroxysmal atrial fibrillation QT prolongation Urinary tract infection Family History Other Aneurysm Stroke Social History Smoking Status: Former smoker Tobacco Type: Pipe Hx Alcohol Use: No Hx Substance Use: No Preferred Language: Tunisian Communication Ability: Effective Front End Alignment Specialist Required: No Beliefs That Will Affect Care: None marital status: / Current Living Situation: Family Current Living Situation Comment: DGT Feels Safe at Home: Yes Assistive Devices: Denture - Upper and Wheelchair Allergies Allergies Allergy/AdvReac Type Severity Reaction Status Date / Time No Known Allergies Allergy Verified 10/18/20 11:03 Home Meds Home Medications Medication Instructions Recorded Confirmed acetaminophen [Tylenol Extra 500 mg PO QID PRN 07/14/18 10/18/20 Strength] amantadine HCl 100 mg PO BID 07/14/18 10/18/20 cyanocobalamin (vitamin B-12) 1,000 mcg IM MONTHLY 07/14/18 10/18/20 clobetasol 1 applic TOPICAL BID 04/13/20 10/18/20 hydrocortisone 1 applic TOPICAL BID PRN 04/13/20 10/18/20 metformin 1,000 mg PO BID 04/13/20 10/18/20 nystatin-triamcinolone 1 applic TOPICAL BID PRN 04/13/20 10/18/20 aspirin [Aspirin Low-Strength] 81 mg PO DAILY 10/18/20 10/18/20 [id number] 1 tab PO DAILY 10/18/20 10/18/20 [id number] 1 tab PO DAILY 10/18/20 10/18/20 [Theragran-M Premier 50 Plus] tramadol 50 mg PO Q6H 10/18/20 10/18/20 Previous Rx's Medication Instructions Recorded acetaminophen 650 mg PO Q4H PRN #30 tab 05/11/20 azathioprine [Imuran] 50 mg PO DAILY #30 tab 05/11/20 buspirone 5 mg PO BID #60 tab 05/11/20 carbidopa-levodopa 2 tab PO BID #120 tab 05/11/20 Results & Data (ED) Vital Signs Vital Signs - 24 hr 10/18/20 10:49 10/18/20 10:52 10/18/20 10:59 Temperature 36.4 C L Temperature Source Oral Pulse Rate 116 H 118 H 117 H Pulse Rate [Apical] 118 H Pulse Rate from SpO2 Sensor 116 H 117 H Respiratory Rate 20 20 22 Respiratory Effort / Characteristics Non-Labored Spontaneous Respiratory Depth Normal Respiratory Pattern Regular Blood Pressure 104/83 104/83 Blood Pressure [Right Arm] 104/83 Blood Pressure Mean 90 90 Blood Pressure Mean [Right Arm] 90 Pulse Oximetry 96 96 96 Oxygen Delivery Method Room Air Sepsis Recent Fever Within 48 Hours No Sepsis New/Unexplained Change in Mental Status No Sepsis Action Taken by Nursing No Action Required 10/18/20 11:00 10/18/20 11:01 10/18/20 11:02 Temperature Temperature Source Pulse Rate 117 H 117 H 117 H Pulse Rate [Apical] Pulse Rate from SpO2 Sensor 118 H 116 H 117 H Respiratory Rate 22 20 22 Respiratory Effort / Characteristics Respiratory Depth Respiratory Pattern Blood Pressure 118/82 Blood Pressure [Right Arm] Blood Pressure Mean 86 Blood Pressure Mean [Right Arm] Pulse Oximetry 93 96 95 Oxygen Delivery Method Sepsis Recent Fever Within 48 Hours Sepsis New/Unexplained Change in Mental Status Sepsis Action Taken by Nursing 10/18/20 11:15 10/18/20 11:30 10/18/20 11:31 Temperature Temperature Source Pulse Rate 114 H 108 H 108 H Pulse Rate [Apical] Pulse Rate from SpO2 Sensor 109 H 109 H Respiratory Rate 20 22 24 Respiratory Effort / Characteristics Respiratory Depth Respiratory Pattern Blood Pressure 113/74 Blood Pressure [Right Arm] Blood Pressure Mean 79 Blood Pressure Mean [Right Arm] Pulse Oximetry 96 96 95 Oxygen Delivery Method Room Air Sepsis Recent Fever Within 48 Hours Sepsis New/Unexplained Change in Mental Status Sepsis Action Taken by Nursing 10/18/20 12:00 10/18/20 12:01 10/18/20 12:30 Temperature Temperature Source Pulse Rate 105 H 105 H 104 H Pulse Rate [Apical] Pulse Rate from SpO2 Sensor 106 H 105 H 109 H Respiratory Rate 20 22 20 Respiratory Effort / Characteristics Respiratory Depth Respiratory Pattern Blood Pressure 116/74 Blood Pressure [Right Arm] Blood Pressure Mean 83 Blood Pressure Mean [Right Arm] Pulse Oximetry 97 97 95 Oxygen Delivery Method Sepsis Recent Fever Within 48 Hours Sepsis New/Unexplained Change in Mental Status Sepsis Action Taken by Nursing 10/18/20 12:31 10/18/20 12:32 10/18/20 12:51 Temperature Temperature Source Pulse Rate 104 H 104 H 103 H Pulse Rate [Apical] Pulse Rate from SpO2 Sensor 104 H 104 H 98 H Respiratory Rate 20 20 21 Respiratory Effort / Characteristics Respiratory Depth Respiratory Pattern Blood Pressure 133/85 137/75 Blood Pressure [Right Arm] Blood Pressure Mean 99 86 Blood Pressure Mean [Right Arm] Pulse Oximetry 97 96 96 Oxygen Delivery Method Sepsis Recent Fever Within 48 Hours Sepsis New/Unexplained Change in Mental Status Sepsis Action Taken by Nursing 10/18/20 12:54 10/18/20 13:00 10/18/20 13:18 Temperature 36.7 C Temperature Source Oral Pulse Rate 102 H 101 H Pulse Rate [Apical] 103 H Pulse Rate from SpO2 Sensor Respiratory Rate 22 20 21 Respiratory Effort / Characteristics Respiratory Depth Respiratory Pattern Blood Pressure 134/80 Blood Pressure [Right Arm] 137/75 Blood Pressure Mean 85 Blood Pressure Mean [Right Arm] 95 Pulse Oximetry 96 96 Oxygen Delivery Method Room Air Sepsis Recent Fever Within 48 Hours Sepsis New/Unexplained Change in Mental Status Sepsis Action Taken by Nursing 10/18/20 13:30 10/18/20 14:00 10/18/20 14:30 Temperature Temperature Source Pulse Rate 101 H 103 H 102 H Pulse Rate [Apical] Pulse Rate from SpO2 Sensor 103 H 103 H Respiratory Rate 20 20 24 Respiratory Effort / Characteristics Respiratory Depth Respiratory Pattern Blood Pressure 150/101 H 120/74 117/72 Blood Pressure [Right Arm] Blood Pressure Mean 127 81 82 Blood Pressure Mean [Right Arm] Pulse Oximetry 95 95 94 Oxygen Delivery Method Sepsis Recent Fever Within 48 Hours Sepsis New/Unexplained Change in Mental Status Sepsis Action Taken by Nursing 10/18/20 14:31 10/18/20 15:00 Temperature Temperature Source Pulse Rate 102 H 103 H Pulse Rate [Apical] Pulse Rate from SpO2 Sensor 102 H 103 H Respiratory Rate 22 24 Respiratory Effort / Characteristics Respiratory Depth Respiratory Pattern Blood Pressure 108/80 Blood Pressure [Right Arm] Blood Pressure Mean 91 Blood Pressure Mean [Right Arm] Pulse Oximetry 95 95 Oxygen Delivery Method Sepsis Recent Fever Within 48 Hours Sepsis New/Unexplained Change in Mental Status Sepsis Action Taken by Nursing Laboratory Data Result diagrams: 10/18/20 11:21 10/18/20 11:21 Lab Results 10/18/20 10/18/20 10/18/20 Range/Units 11:21 11:21 11:21 WBC 20.75 H (4.8-10.8) K/uL RBC 4.13 L (4.2-5.4) M/uL Hgb 12.4 (12.0-16.0) g/dL Hct 36.2 L (37-47) % MCV 87.7 (80-100) fL MCH 30.0 (25-34) pg MCHC 34.3 (32-36) g/dL RDW Std Deviation 51.4 H (36.4-46.3) fL RDW Coeff of Segundo 16.2 H (11.5-14.5) % Plt Count 765 H (130-400) K/uL MPV 9.7 (7.4-10.4) fL Immature Gran % (Auto) 0.2 % Neut % (Auto) 87.3 % Lymph % (Auto) 10.4 % [place] % (Auto) 2.1 % Eos % (Auto) 0.0 % Baso % (Auto) 0.0 % Neut # (Auto) 18.11 H (1.4-6.5) K/uL Lymph # (Auto) 2.15 (1.2-3.4) K/uL [place] # (Auto) 0.43 (0.11-0.59) K/uL Eos # (Auto) 0.00 (0-0.5) K/uL Baso # (Auto) 0.01 (0-0.2) K/uL Immature Gran # (Auto) 0.05 H (0.00-0.02) K/uL PT 18.4 H (9.0-12.0) Seconds INR 1.8 H (0.9-1.1) APTT 30.5 (21.0-31.0) Seconds PTT Ratio 1.1 Sodium (136-145) mmol/L Potassium (3.5-5.1) mmol/L Chloride (98-107) mmol/L Carbon Dioxide (21-32) mmol/L Anion Gap (3-11) BUN (7-18) mg/dl Creatinine (0.6-1.2) mg/dl Est Cr Clr Drug Dosing ml/min Est GFR ( Amer) Est GFR (Non-Af Amer) BUN/Creatinine Ratio (10-20) Glucose (70-99) mg/dl Calcium (8.5-10.1) mg/dl Total Bilirubin (0.2-1) mg/dl AST (15-37) U/L ALT (12-78) U/L Alkaline Phosphatase (45-117) U/L Troponin I (0-0.045) ng/ml Total Protein (6.4-8.2) gm/dl Albumin (3.4-5.0) gm/dl Globulin (2.5-4.0) gm/dl Albumin/Globulin Ratio (0.9-2) COVID-19 Eval Order SARS-CoV-2, RNA, NAAT (NEGATIVE) Blood Type O Positive Antibody Screen NEGATIVE 10/18/20 10/18/20 10/18/20 Range/Units 11:21 12:00 12:00 WBC (4.8-10.8) K/uL RBC (4.2-5.4) M/uL Hgb (12.0-16.0) g/dL Hct (37-47) % MCV (80-100) fL MCH (25-34) pg MCHC (32-36) g/dL RDW Std Deviation (36.4-46.3) fL RDW Coeff of Segundo (11.5-14.5) % Plt Count (130-400) K/uL MPV (7.4-10.4) fL Immature Gran % (Auto) % Neut % (Auto) % Lymph % (Auto) % [place] % (Auto) % Eos % (Auto) % Baso % (Auto) % Neut # (Auto) (1.4-6.5) K/uL Lymph # (Auto) (1.2-3.4) K/uL [place] # (Auto) (0.11-0.59) K/uL Eos # (Auto) (0-0.5) K/uL Baso # (Auto) (0-0.2) K/uL Immature Gran # (Auto) (0.00-0.02) K/uL PT (9.0-12.0) Seconds INR (0.9-1.1) APTT (21.0-31.0) Seconds PTT Ratio Sodium 133 L (136-145) mmol/L Potassium 5.0 (3.5-5.1) mmol/L Chloride 95 L (98-107) mmol/L Carbon Dioxide 23 (21-32) mmol/L Anion Gap 16.0 H (3-11) BUN 44 H (7-18) mg/dl Creatinine 1.95 H (0.6-1.2) mg/dl Est Cr Clr Drug Dosing 22.0 ml/min Est GFR ( Amer) 27.3 Est GFR (Non-Af Amer) 23.5 BUN/Creatinine Ratio 22.3 H (10-20) Glucose 191 H (70-99) mg/dl Calcium 9.9 (8.5-10.1) mg/dl Total Bilirubin 0.4 (0.2-1) mg/dl AST 6 L (15-37) U/L ALT 7 L (12-78) U/L Alkaline Phosphatase 97 (45-117) U/L Troponin I < 0.015 (0-0.045) ng/ml Total Protein 7.0 (6.4-8.2) gm/dl Albumin 3.0 L (3.4-5.0) gm/dl Globulin 4.0 (2.5-4.0) gm/dl Albumin/Globulin Ratio 0.7 L (0.9-2) COVID-19 Eval [facility] SARS-CoV-2, RNA, NAAT NEGATIVE (NEGATIVE) Blood Type Antibody Screen Administered Medications Sodium Chloride (Nss 1000ml) 1,000 mls @ 125 mls/hr IV .Q8H STA Stop: 10/18/20 19:53 Last Admin: 10/18/20 12:00 Dose: 125 mls/hr Documented by: [id number] Discontinued Medications Sodium Chloride (Nss) 500 mls @ 999 mls/hr IV .Q31M DEEDEE Stop: 10/18/20 11:45 Last Infusion: 10/18/20 11:57 Dose: 0 mls/hr Documented by: [id number] Admin: 10/18/20 11:24 Dose: 999 mls/hr Documented by: [id number] Ondansetron HCl (Ondansetron Inj 2 Mg/Ml 2 Ml Vial) 4 mg IV ONE STA Stop: 10/18/20 11:07 Last Admin: 10/18/20 11:23 Dose: 4 mg Documented by: [id number] Ondansetron HCl (Ondansetron Inj 2 Mg/Ml 2 Ml Vial) 4 mg IV NOW STA Stop: 10/18/20 12:31 Last Admin: 10/18/20 12:33 Dose: 4 mg Documented by: [id number] Discharge Plan Visit Data Chief Complaint: Nausea ED Provider: Edy Goldman ED Midlevel Provider: Flori Ontiveros Discharge Problem: Bowel obstruction, Nausea & vomiting, Acute renal failure, Acute dehydration Forms Stand Alone Forms: [employer] Prescriptions Prescriptions: No Action amantadine HCl 100 mg capsule 100 mg PO BID RF: 0 cyanocobalamin (vitamin B-12) 1,000 mcg/mL Solution 1,000 mcg IM MONTHLY RF: 0 acetaminophen [Tylenol Extra Strength] 500 mg Tablet 500 mg PO QID PRN (Reason: Pain) RF: 0 metformin 1,000 mg Tablet 1,000 mg PO BID RF: 0 nystatin-triamcinolone 100,000-0.1 unit/g-% Cream 1 applic TOPICAL BID PRN (Reason: UNDER BREAST PRN) RF: 0 clobetasol 0.05 % cream 1 applic TOPICAL BID RF: 0 hydrocortisone 2.5 % Cream 1 applic TOPICAL BID PRN (Reason: Skin Irritation) RF: 0 buspirone 5 mg Tablet 5 mg PO BID Qty: 60 RF: 0 carbidopa-levodopa 50-200 mg Tablet Extended Release 2 tab PO BID Qty: 120 RF: 0 acetaminophen 325 mg Tablet 650 mg PO Q4H PRN (Reason: pain) Qty: 30 RF: 0 azathioprine [Imuran] 50 mg tablet 50 mg PO DAILY Qty: 30 RF: 0 aspirin [Aspirin Low-Strength] 81 mg Tablet,Delayed Release (Dr/Ec) 81 mg PO DAILY RF: 0 tramadol 50 mg tablet 50 mg PO Q6H RF: 0 Theragran-M Premier 50 Plus 400-250-375 mcg Tablet 1 tab PO DAILY RF: 0 fmrvcfv-oyldsxlde-nkyk 333-133-8.3 mg Tablet 1 tab PO DAILY RF: 0
[2020-10-18] MEDS ORDERED: NYSTATIN/TRIAMCIN CR 15 GM TUBE EXT PRN (16:38)
[2020-10-18] MEDS ORDERED: CLOBETASOL PROPIONATE 0.05% OINT 15 GM TUBE EXT PRN (16:44)
[2020-10-18] MEDS ORDERED: CARBOHYDRATES FOR HYPOGLYCEMIA PO PRN (16:45)
[2020-10-18] MEDS ORDERED: GLUCOSE 40% GEL 15 GM TUBE PO PRN (16:45)
[2020-10-18] MEDS ORDERED: GLUCOSE 10 TABS/TUBE PO PRN (16:45)
[2020-10-18] MEDS ORDERED: DEXTROSE 50% 50 ML SYRINGE IV PRN (16:45)
[2020-10-18] MEDS ORDERED: GLUCAGON FOR INJ 1 MG VIAL IM PRN (16:45)
[2020-10-18] MEDS ORDERED: PIPERACILL/TAZOBAC CONSULT ACTIVE PRN (16:49)
[2020-10-18] MEDS ORDERED: PIPERACILLIN/TAZOBACTAM 3.375 GM in DEXTROSE 5% 100 ML IV ONE (17:15)
[2020-10-18] MEDS: ONDANSETRON INJ 2 MG/ML 2 ML VIAL IV SCH ×2 (17:26→21:57)
[2020-10-18] MEDS: INSULIN ASPART 100 UNITS/ML 3 ML PEN SC SCH ×2 (17:43→21:37)
[2020-10-18] MEDS ORDERED: SODIUM CHLORIDE 0.9% 1000ML 500 ML IV ONE (20:51)
[2020-10-18] MEDS ORDERED: CARBIDOPA/LEVODOPA 50/200MG EXT REL TAB PO SCH (21:00)
[2020-10-18] MEDS: SODIUM CHLORIDE 0.9% 1000ML 1,000 ML IV SCH (21:29)
[2020-10-18] MEDS: PIPERACILLIN/TAZOBACTAM 3.375 GM in DEXTROSE 5% 100 ML IV SCH (21:57)
[2020-10-18] MEDS: busPIRone 5 MG TAB PO SCH (22:04)
[2020-10-18] MEDS: HYDROmorphone INJ 0.5 MG/0.5 ML SYR IV PRN (22:55)
[2020-10-18] MEDS ORDERED: Nursing to Pharmacy Communication SCH (23:15)
[2020-10-19] MEDS: INSULIN ASPART 100 UNITS/ML 3 ML PEN SC SCH ×4 (00:27→18:09)
[2020-10-19] MEDS: PIPERACILLIN/TAZOBACTAM 3.375 GM in DEXTROSE 5% 100 ML IV SCH ×3 (05:20→21:22)
[2020-10-19] MEDS: ONDANSETRON INJ 2 MG/ML 2 ML VIAL IV SCH ×4 (05:34→21:36)
--- NOTE | 2020-10-19 06:36 | Emergency Department Note ---
General (ED) Blank Date of Service October 18, 2020 ED Visit Note I personally saw, interviewed, and examined the patient. Patient's case was discussed with Dr. Goldman, ED attending, and I assisted with MDM. Please see attending documentation for full details. Resident Activity Tracking Resident Involvement: Resident Care Provided Care Provided: Adult ED
[2020-10-19] MEDS: SODIUM CHLORIDE 0.9% 1000ML 1,000 ML IV SCH ×3 (06:46→15:09)
[2020-10-19 06:48] LABS: Eosinophils # (auto) 0.01 K/uL (0-0.5); Eosinophils % (auto) 0.1 %; Hematocrit (blood only) 29.9 % (37-47); Hemoglobin 10.1 g/dL (12.0-16.0); Immature Granulocytes # (auto) 0.02 K/uL (0.00-0.02); Immature Granulocytes % (auto) 0.2 %; Lymphocytes # (auto) 1.25 K/uL (1.2-3.4); Lymphocytes % (auto) 12.8 %; Mean Corpuscular Hemoglobin 29.8 pg (25-34); Mean Corpuscular Hgb Conc 33.8 g/dL (32-36); Mean Corpuscular Volume 88.2 fL (80-100); Mean Platelet Volume 9.9 fL (7.4-10.4); Monocytes # (auto) 1.34 K/uL (0.11-0.59); Monocytes % (auto) 13.7 %; Neutrophils # (auto) 7.18 K/uL (1.4-6.5); Neutrophils % (auto) 73.2 %; Platelet Count 641 K/uL (130-400); RDW Coefficient of Variation 16.3 % (11.5-14.5); Red Blood Count 3.39 M/uL (4.2-5.4)
[2020-10-19 07:20] LABS: BUN Creatinine Ratio 37.1 (10-20); Calcium 8.2 mg/dl (8.5-10.1); Creatinine Clr Calc Pharmacy 25.1 ml/min; Est GFR (Non-African American) 27.6; Potassium 4.9 mmol/L (3.5-5.1)
--- NOTE | 2020-10-19 07:33 | XRay Report ---
KUB CLINICAL HISTORY: Small bowel obstruction. FINDINGS: 2 AP, portable, supine abdominal radiographs are correlated with abdominal CT dated 1. An enteric tube projects below the diaphragm over the stomach. There is evidence of persistent sma ll bowel obstruction. Distended and gas-filled loops of small bowel measure up to 4 cm. No evidence o f intraperitoneal free air is seen on these supine views. There are no abnormal abdominal calcificati ons. The skeletal structures are osteopenic and appear intact. There is moderate to advanced lumbosac ral spondylosis. IMPRESSION: 1. Persistent small bowel obstruction. 2. An enteric tube projects over the stomach. Electronically signed by: Rodo Ramos M.D. 10/19/2020 7:32 AM
[2020-10-19] MEDS ORDERED: AMANTADINE HCL 100 MG CAPSULE PO SCH (08:30)
[2020-10-19] MEDS: busPIRone 5 MG TAB PO SCH ×2 (08:31→20:55)
[2020-10-19] MEDS: HYDROmorphone INJ 0.5 MG/0.5 ML SYR IV PRN ×3 (08:39→16:21)
[2020-10-19] MEDS ORDERED: azaTHIOprine 50 MG TAB PO SCH (09:00)
--- NOTE | 2020-10-19 09:07 | Hospitalist Progress Note ---
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 CEA elevated at 6.3 -Provide antiemetics GI and surgery discussed options with patient - at this point she does not want any invasive procedures including colonoscopy. I talked with her daughter Pili who said that is in line with her mother's living will. She agreed that it would be a good idea to have palliative care come on board who we will consult (2) Acute kidney injury: -pre-renal due to poor po intake - creat 1.95 on admission, now 1.71 -Continue IVF but decrease from 150 ml/hr to 80 mls/hr -Will avoid nephrotoxins -bmp am (3) Coagulopathy: -may be nutritional with patient having poor po intake -INR is 2.1 today Repeat am (4) Diabetes mellitus: -the Patient takes Metformin for this condition which we will hold. -We will follow her glucose levels and use sliding scale insulin. (5) Leukocytosis: -May be related to the stress from her acute illness. -We will follow serial labs - continue Zosyn for now (6) Dementia: Oriented to person and place (7) Parkinson disease: Hold Sinemet, amantadine for now while NPO (8) DVT prophylaxis: SCDs - hold chemoprophylaxis for elevated INR Admission and Anticipated Discharge Date Admission Date: October 18, 2020 Subjective Ms. Nicole is having pain in her abdomen and nausea. Review of Systems Constitutional: no fever and no body aches Respiratory: no cough and no dyspnea Cardiovascular: no chest pain and no palpitations Gastrointestinal: no abdominal pain, no nausea and no vomiting Genitourinary: no dysuria and no urinary hesitancy Musculoskeletal: no back pain and no joint pain Integumentary: no rash Physical Exam Physical Exam: General: no distress Eyes: normal inspection, PERLL Respiratory: chest non tender, clear to auscultation, normal breath sounds, no respiratory distress, no accessory muscle use Cardiac: regular rate and rhythm, no rub or gallop, no murmur, no edema, no jvd GI/: active bowel sounds, abdomen tender, soft, non distended Extremities: normal range of motion, normal strength, non tender Neuro/Psych: alert and oriented to person and place, normal mood and affect Skin: normal color, dry Results & Data Results & Data ([facility]) Vital Signs (Past 12 Hours) Vital Signs Temp Pulse Resp BP Pulse Ox 10/19/20 07:07 36.7 C 103 H 16 119/71 95 10/18/20 23:10 36.7 C 101 H 20 116/81 94 PG Care Time/CCT Total # of Minutes Spent Total Time Spent with Patient: Total time spent is greater than 50% in coordination of care (as documented) at patient's floor/unit and/or counseling patient: Coding Level of Care Code 32949 Subseq Hosp Care Lvl 3 Diagnoses Small bowel obstruction K56.609 Acute kidney injury N17.9 Coagulopathy D68.9 Diabetes mellitus E11.9 Leukocytosis D72.829 Dementia F03.91 Dementia behavioral disturbance: with behavioral disturbance Dementia type: unspecified type Parkinson disease G20 DVT prophylaxis Z29.9 (1) Dementia Dementia behavioral disturbance: with behavioral disturbance Dementia type: unspecified type Qualified Code(s): F03.91 - Unspecified dementia with behavioral disturbance
[2020-10-19 09:25] LABS: INR 2.1 (0.9-1.1); Prothrombin Time 21.4 Seconds (9.0-12.0)
--- NOTE | 2020-10-19 10:42 | Gastrointestinal Consultation ---
Date of Consultation October 19, 2020 Assessment & Plan (1) Abnormal CT scan, colon: Discussed abnormal CT scan of colon with patient. Patient had been offered a colonoscopy previously and refused. Today, she is firm in her refusal. She does not wish to seek further work-up of these abnormalities at the present time. Continue with NG tube. Continue conservative management. Consider palliative care discussion with patient and family if she does not wish for further intervention. Thank you for allowing us to participate in the care of this patient. If you should have any further questions or concerns, do not hesitate to contact us at extension [phone] or [phone]. Supervising Physician Co-Signing Physician Notes I personally evaluated the patient and agree with the findings as documented by Radha Kam, PAC Exam: abd: soft, nt, nd at this time she refuses endoscopic intervention, imaging c/w colonic mass concerning for neoplasm. Would consider palliative care evaluation at this time as she refuses further treatment from a GI perspective. History of Present Illness Reason for Consultation: Colon thickening Attending Physician: Demian Trejo MD History of Present Illness Patient is an 80 yo female with PMH of paroxysmal atrial fibrillation, DJD, bullous pemphigoid, type 2 diabetes mellitus, Parkinson's disease, dementia, & hypertension. She presented to [facility] ED after feeling poorly for 1-2 weeks. She reports to me that she had left sided abdominal pain. She tried to ignore this discomfort then developed nausea & vomiting. She reports it has been several days since her last bowel movement. In the ED, she was noted to have leukocytosis >20,000. H/H 12.4/36.2. BUN/Cr 44/1.95. LFTs unremarkable. She had a CT scan of the abdomen that indicated dilated large and small bowel loops to the level of the splenic flexure concerning for a partial colonic obstruction. Also noted on the scan was bowel wall thickening that was felt to be pathologic. There was an enlarged pericolonic lymph node. She currently has an NG tube placed that is draining brown liquid. She reports that she still doesn't feel well but symptoms are slightly better. Allergies Allergy/AdvReac Type Severity Reaction Status Date / Time No Known Allergies Allergy Verified 10/18/20 11:03 Home Medications Medication Instructions Recorded Confirmed Type acetaminophen [Tylenol Extra 500 mg PO QID PRN 07/14/18 10/18/20 History Strength] amantadine HCl 100 mg PO BID 07/14/18 10/18/20 History cyanocobalamin (vitamin B-12) 1,000 mcg IM MONTHLY 07/14/18 10/18/20 History clobetasol 1 applic TOPICAL BID 04/13/20 10/18/20 History hydrocortisone 1 applic TOPICAL BID PRN 04/13/20 10/18/20 History metformin 1,000 mg PO BID 04/13/20 10/18/20 History nystatin-triamcinolone 1 applic TOPICAL BID PRN 04/13/20 10/18/20 History acetaminophen 650 mg PO Q4H PRN #30 tab 05/11/20 10/18/20 Rx azathioprine [Imuran] 50 mg PO DAILY #30 tab 05/11/20 10/18/20 Rx buspirone 5 mg PO BID #60 tab 05/11/20 10/18/20 Rx carbidopa-levodopa 2 tab PO BID #120 tab 05/11/20 10/18/20 Rx aspirin [Aspirin Low-Strength] 81 mg PO DAILY 10/18/20 10/18/20 History laiooky-aohrnmiqa-lnru 1 tab PO DAILY 10/18/20 10/18/20 History [id number]-cvaukhq-[id number] 1 tab PO DAILY 10/18/20 10/18/20 History [Theragran-M Premier 50 Plus] tramadol 50 mg PO Q6H 10/18/20 10/18/20 History Patient History Medical History (Updated 10/19/20 @ 10:38 by Radha Kam PA-C) Diabetes Hypertension Paroxysmal atrial fibrillation QT prolongation Urinary tract infection Family History Other Aneurysm Stroke Social History Smoking Status: Former smoker Tobacco Type: Pipe Second Hand Exposure: No; Do You Dip or Chew Tobacco: No; Tobacco Cessation Education Requested by Patient: No Hx Alcohol Use: No Hx Substance Use: No Preferred Language: Indonesian Communication Ability: Effective Chef Required: No Beliefs That Will Affect Care: None marital status: / Current Living Situation: Family Current Living Situation Comment: lives with daughter Other Information That Helps Us Care for You: No Feels Safe at Home: Yes Safety Concerns: Feels Safe At This Time Assistive Devices: Denture - Upper and Denture - Lower Review of Systems Constitutional: no fever and no chills Respiratory: no cough and no dyspnea Cardiovascular: no chest pain Gastrointestinal: + abdominal pain, + nausea and + vomiting Musculoskeletal: + joint pain Integumentary: no problem reported Physical Exam Constitutional: well developed ENMT: NG tube in place Neck: normal visual inspection Respiratory: normal respiratory effort Cardiovascular: Extremities: no edema Gastrointestinal (Abdomen): Inspection/Auscultation: + abdomen distended and + hypoactive bowel sounds Percussion/Palpation: + abdomen tender Musculoskeletal: Head/Neck/Chest: normocephalic Neurologic: awake Psychiatric: Orientation: alert and oriented x 3 Results & Data ([facility]) Vital Signs (Past 12 Hours) Vital Signs Temp Pulse Resp BP Pulse Ox 10/19/20 07:07 36.7 C 103 H 16 119/71 95 10/18/20 23:10 36.7 C 101 H 20 116/81 94 PG Care Time/CCT Total # of Minutes Spent Total Time Spent with Patient: Total time spent is greater than 50% in coordination of care (as documented) at patient's floor/unit and/or counseling patient: Coding Level of Care Code 52507 Initial Inpt Care Lvl [address] scan, colon R93.3
--- NOTE | 2020-10-19 11:38 | Surgery Progress Note ---
Date of Service October 19, 2020 Assessment & Plan (1) Bowel obstruction: 80 year-old female who presented to Er with nausea, vomiting, and weakness found to have small and large bowel obstruction on imaging concerning for splenic flexure mass or inflammation. No prior history of colonoscopy. 10/19/2020 - leukocytosis resolved - 760 cc NGT output - KUB today with persistent SBO - CEA elevated at 6.3 Plan: Gi consulted to discuss colonoscopy for further evaluation. Patient states she does not want a colonoscopy. however will allow GI to discuss procedure with her. Discussed if she does not want any intervention than obstruction may not resolved and she could detoriate or even . Discussed with hospitalist Justyna Dalton who plans to call daughter to discuss intervention. Await GI consultation Continue NPO and NGT to LIS May have ice ships and mouth swabs for comfort. Continue medical management Dr. Rios has seen and examined pt, agrees with above. Admission and Anticipated Discharge Date Admission Date: October 18, 2020 Subjective feeling a little better but still having some pain and nausea had emesis bag in hands. thirsty and wants ice chips unsure if she has passed gas, no bowel movement was unsure if GI came to evaluate her today, when asked if she would get a colonoscopy she said she did not want one. Asked if she every had one and she s aid no. Physical Exam Constitutional: + frail appearing, cooperative and + lethargic Respiratory: normal respiratory effort Gastrointestinal (Abdomen): Inspection/Auscultation: + abdomen distended Percussion/Palpation: + abdomen tender (LUQ, no guarding or rigidity) and abdomen soft Skin: no rashes, warm and dry Results & Data ([facility]) Vital Signs (Past 12 Hours) Vital Signs Temp Pulse Resp BP Pulse Ox 10/19/20 07:07 36.7 C 103 H 16 119/71 95 Laboratory Results 10/19/20 10/19/20 10/19/20 Range/Units 05:50 05:50 05:50 WBC (4.8-10.8) K/uL RBC (4.2-5.4) M/uL Hgb (12.0-16.0) g/dL Hct (37-47) % MCV (80-100) fL MCH (25-34) pg MCHC (32-36) g/dL RDW Std Deviation (36.4-46.3) fL RDW Coeff of Segundo (11.5-14.5) % Plt Count (130-400) K/uL MPV (7.4-10.4) fL Immature Gran % (Auto) % Neut % (Auto) % Lymph % (Auto) % [place] % (Auto) % Eos % (Auto) % Baso % (Auto) % Neut # (Auto) (1.4-6.5) K/uL Lymph # (Auto) (1.2-3.4) K/uL [place] # (Auto) (0.11-0.59) K/uL Eos # (Auto) (0-0.5) K/uL Baso # (Auto) (0-0.2) K/uL Immature Gran # (Auto) (0.00-0.02) K/uL PT 21.4 H (9.0-12.0) Seconds INR 2.1 H (0.9-1.1) APTT (21.0-31.0) Seconds PTT Ratio Sodium 137 (136-145) mmol/L Potassium 4.9 (3.5-5.1) mmol/L Chloride 99 (98-107) mmol/L Carbon Dioxide 29 (21-32) mmol/L Anion Gap 9.0 (3-11) BUN 63 H (7-18) mg/dl Creatinine 1.71 H (0.6-1.2) mg/dl Est Cr Clr Drug Dosing 25.1 ml/min Est GFR ( Amer) 32.0 Est GFR (Non-Af Amer) 27.6 BUN/Creatinine Ratio 37.1 H (10-20) Glucose 146 H (70-99) mg/dl POC Glucose (70-99) mg/dl Calcium 8.2 L D (8.5-10.1) mg/dl Total Bilirubin (0.2-1) mg/dl AST (15-37) U/L ALT (12-78) U/L Alkaline Phosphatase (45-117) U/L Troponin I (0-0.045) ng/ml Total Protein (6.4-8.2) gm/dl Albumin (3.4-5.0) gm/dl Globulin (2.5-4.0) gm/dl Albumin/Globulin Ratio (0.9-2) Carcinoembryonic Ag 6.3 H (0-2.5) ng/ml COVID-19 Eval Order SARS-CoV-2, RNA, NAAT (NEGATIVE) Blood Type Antibody Screen 10/19/20 10/19/20 10/19/20 Range/Units 05:50 05:31 00:03 WBC 9.80 D (4.8-10.8) K/uL RBC 3.39 L (4.2-5.4) M/uL Hgb 10.1 L (12.0-16.0) g/dL Hct 29.9 L (37-47) % MCV 88.2 (80-100) fL MCH 29.8 (25-34) pg MCHC 33.8 (32-36) g/dL RDW Std Deviation 52.0 H (36.4-46.3) fL RDW Coeff of Segundo 16.3 H (11.5-14.5) % Plt Count 641 H (130-400) K/uL MPV 9.9 (7.4-10.4) fL Immature Gran % (Auto) 0.2 % Neut % (Auto) 73.2 % Lymph % (Auto) 12.8 % [place] % (Auto) 13.7 % Eos % (Auto) 0.1 % Baso % (Auto) 0.0 % Neut # (Auto) 7.18 H (1.4-6.5) K/uL Lymph # (Auto) 1.25 (1.2-3.4) K/uL [place] # (Auto) 1.34 H (0.11-0.59) K/uL Eos # (Auto) 0.01 (0-0.5) K/uL Baso # (Auto) 0.00 (0-0.2) K/uL Immature Gran # (Auto) 0.02 (0.00-0.02) K/uL PT (9.0-12.0) Seconds INR (0.9-1.1) APTT (21.0-31.0) Seconds PTT Ratio Sodium (136-145) mmol/L Potassium (3.5-5.1) mmol/L Chloride (98-107) mmol/L Carbon Dioxide (21-32) mmol/L Anion Gap (3-11) BUN (7-18) mg/dl Creatinine (0.6-1.2) mg/dl Est Cr Clr Drug Dosing ml/min Est GFR ( Amer) Est GFR (Non-Af Amer) BUN/Creatinine Ratio (10-20) Glucose (70-99) mg/dl POC Glucose 157 H 190 H (70-99) mg/dl Calcium (8.5-10.1) mg/dl Total Bilirubin (0.2-1) mg/dl AST (15-37) U/L ALT (12-78) U/L Alkaline Phosphatase (45-117) U/L Troponin I (0-0.045) ng/ml Total Protein (6.4-8.2) gm/dl Albumin (3.4-5.0) gm/dl Globulin (2.5-4.0) gm/dl Albumin/Globulin Ratio (0.9-2) Carcinoembryonic Ag (0-2.5) ng/ml COVID-19 Eval Order SARS-CoV-2, RNA, NAAT (NEGATIVE) Blood Type Antibody Screen 10/18/20 10/18/20 10/18/20 Range/Units 20:28 17:10 12:00 WBC (4.8-10.8) K/uL RBC (4.2-5.4) M/uL Hgb (12.0-16.0) g/dL Hct (37-47) % MCV (80-100) fL MCH (25-34) pg MCHC (32-36) g/dL RDW Std Deviation (36.4-46.3) fL RDW Coeff of Segundo (11.5-14.5) % Plt Count (130-400) K/uL MPV (7.4-10.4) fL Immature Gran % (Auto) % Neut % (Auto) % Lymph % (Auto) % [place] % (Auto) % Eos % (Auto) % Baso % (Auto) % Neut # (Auto) (1.4-6.5) K/uL Lymph # (Auto) (1.2-3.4) K/uL [place] # (Auto) (0.11-0.59) K/uL Eos # (Auto) (0-0.5) K/uL Baso # (Auto) (0-0.2) K/uL Immature Gran # (Auto) (0.00-0.02) K/uL PT (9.0-12.0) Seconds INR (0.9-1.1) APTT (21.0-31.0) Seconds PTT Ratio Sodium (136-145) mmol/L Potassium (3.5-5.1) mmol/L Chloride (98-107) mmol/L Carbon Dioxide (21-32) mmol/L Anion Gap (3-11) BUN (7-18) mg/dl Creatinine (0.6-1.2) mg/dl Est Cr Clr Drug Dosing ml/min Est GFR ( Amer) Est GFR (Non-Af Amer) BUN/Creatinine Ratio (10-20) Glucose (70-99) mg/dl POC Glucose 203 H 178 H (70-99) mg/dl Calcium (8.5-10.1) mg/dl Total Bilirubin (0.2-1) mg/dl AST (15-37) U/L ALT (12-78) U/L Alkaline Phosphatase (45-117) U/L Troponin I (0-0.045) ng/ml Total Protein (6.4-8.2) gm/dl Albumin (3.4-5.0) gm/dl Globulin (2.5-4.0) gm/dl Albumin/Globulin Ratio (0.9-2) Carcinoembryonic Ag (0-2.5) ng/ml COVID-19 Eval Order SARS-CoV-2, RNA, NAAT NEGATIVE (NEGATIVE) Blood Type Antibody Screen 10/18/20 10/18/20 10/18/20 Range/Units 12:00 11:21 11:21 WBC (4.8-10.8) K/uL RBC (4.2-5.4) M/uL Hgb (12.0-16.0) g/dL Hct (37-47) % MCV (80-100) fL MCH (25-34) pg MCHC (32-36) g/dL RDW Std Deviation (36.4-46.3) fL RDW Coeff of Segundo (11.5-14.5) % Plt Count (130-400) K/uL MPV (7.4-10.4) fL Immature Gran % (Auto) % Neut % (Auto) % Lymph % (Auto) % [place] % (Auto) % Eos % (Auto) % Baso % (Auto) % Neut # (Auto) (1.4-6.5) K/uL Lymph # (Auto) (1.2-3.4) K/uL [place] # (Auto) (0.11-0.59) K/uL Eos # (Auto) (0-0.5) K/uL Baso # (Auto) (0-0.2) K/uL Immature Gran # (Auto) (0.00-0.02) K/uL PT 18.4 H (9.0-12.0) Seconds INR 1.8 H (0.9-1.1) APTT 30.5 (21.0-31.0) Seconds PTT Ratio 1.1 Sodium 133 L (136-145) mmol/L Potassium 5.0 (3.5-5.1) mmol/L Chloride 95 L (98-107) mmol/L Carbon Dioxide 23 (21-32) mmol/L Anion Gap 16.0 H (3-11) BUN 44 H (7-18) mg/dl Creatinine 1.95 H (0.6-1.2) mg/dl Est Cr Clr Drug Dosing 22.0 ml/min Est GFR ( Amer) 27.3 Est GFR (Non-Af Amer) 23.5 BUN/Creatinine Ratio 22.3 H (10-20) Glucose 191 H (70-99) mg/dl POC Glucose (70-99) mg/dl Calcium 9.9 (8.5-10.1) mg/dl Total Bilirubin 0.4 (0.2-1) mg/dl AST 6 L (15-37) U/L ALT 7 L (12-78) U/L Alkaline Phosphatase 97 (45-117) U/L Troponin I < 0.015 (0-0.045) ng/ml Total Protein 7.0 (6.4-8.2) gm/dl Albumin 3.0 L (3.4-5.0) gm/dl Globulin 4.0 (2.5-4.0) gm/dl Albumin/Globulin Ratio 0.7 L (0.9-2) Carcinoembryonic Ag (0-2.5) ng/ml COVID-19 Eval [facility] SARS-CoV-2, RNA, NAAT (NEGATIVE) Blood Type Antibody Screen 10/18/20 10/18/20 Range/Units 11:21 11:21 WBC (4.8-10.8) K/uL RBC (4.2-5.4) M/uL Hgb (12.0-16.0) g/dL Hct (37-47) % MCV (80-100) fL MCH (25-34) pg MCHC (32-36) g/dL RDW Std Deviation (36.4-46.3) fL RDW Coeff of Segundo (11.5-14.5) % Plt Count (130-400) K/uL MPV (7.4-10.4) fL Immature Gran % (Auto) 0.2 % Neut % (Auto) 87.3 % Lymph % (Auto) 10.4 % [place] % (Auto) 2.1 % Eos % (Auto) 0.0 % Baso % (Auto) 0.0 % Neut # (Auto) 18.11 H (1.4-6.5) K/uL Lymph # (Auto) 2.15 (1.2-3.4) K/uL [place] # (Auto) 0.43 (0.11-0.59) K/uL Eos # (Auto) 0.00 (0-0.5) K/uL Baso # (Auto) 0.01 (0-0.2) K/uL Immature Gran # (Auto) 0.05 H (0.00-0.02) K/uL PT (9.0-12.0) Seconds INR (0.9-1.1) APTT (21.0-31.0) Seconds PTT Ratio Sodium (136-145) mmol/L Potassium (3.5-5.1) mmol/L Chloride (98-107) mmol/L Carbon Dioxide (21-32) mmol/L Anion Gap (3-11) BUN (7-18) mg/dl Creatinine (0.6-1.2) mg/dl Est Cr Clr Drug Dosing ml/min Est GFR ( Amer) Est GFR (Non-Af Amer) BUN/Creatinine Ratio (10-20) Glucose (70-99) mg/dl POC Glucose (70-99) mg/dl Calcium (8.5-10.1) mg/dl Total Bilirubin (0.2-1) mg/dl AST (15-37) U/L ALT (12-78) U/L Alkaline Phosphatase (45-117) U/L Troponin I (0-0.045) ng/ml Total Protein (6.4-8.2) gm/dl Albumin (3.4-5.0) gm/dl Globulin (2.5-4.0) gm/dl Albumin/Globulin Ratio (0.9-2) Carcinoembryonic Ag (0-2.5) ng/ml COVID-19 Eval Order SARS-CoV-2, RNA, NAAT (NEGATIVE) Blood Type O Positive Antibody Screen NEGATIVE Diagnostic Findings KUB CLINICAL HISTORY: Small bowel obstruction. FINDINGS: 2 AP, portable, supine abdominal radiographs are correlated with abdominal CT dated 10/18/2020. An enteric tube projects below the diaphragm over the stomach. There is evidence of persistent small bowel obstruction. Distended and gas-filled loops of small bowel measure up to 4 cm. No evidence of intraperitoneal free air is seen on these supine views. There are no abnormal abdominal calcifications. The skeletal structures are osteopenic and appear intact. There is moderate to advanced lumbosacral spondylosis. IMPRESSION: 1. Persistent small bowel obstruction. 2. An enteric tube projects over the stomach.
[2020-10-20] MEDS: INSULIN ASPART 100 UNITS/ML 3 ML PEN SC SCH ×4 (00:30→18:11)
[2020-10-20] MEDS: SODIUM CHLORIDE 0.9% 1000ML 1,000 ML IV SCH ×2 (03:22→15:13)
[2020-10-20] MEDS: ONDANSETRON INJ 2 MG/ML 2 ML VIAL IV SCH ×4 (04:48→21:11)
[2020-10-20] MEDS: PIPERACILLIN/TAZOBACTAM 3.375 GM in DEXTROSE 5% 100 ML IV SCH ×3 (05:46→21:11)
[2020-10-20 07:08] LABS: Basophils # (auto) 0.01 K/uL (0-0.2); Basophils % (auto) 0.1 %; Eosinophils # (auto) 0.07 K/uL (0-0.5); Hematocrit (blood only) 29.1 % (37-47); Hemoglobin 9.4 g/dL (12.0-16.0); Immature Granulocytes # (auto) 0.02 K/uL (0.00-0.02); Immature Granulocytes % (auto) 0.3 %; Lymphocytes # (auto) 1.07 K/uL (1.2-3.4); Lymphocytes % (auto) 15.2 %; Mean Corpuscular Hemoglobin 29.2 pg (25-34); Mean Corpuscular Hgb Conc 32.3 g/dL (32-36); Mean Corpuscular Volume 90.4 fL (80-100); Mean Platelet Volume 9.6 fL (7.4-10.4); Monocytes # (auto) 0.98 K/uL (0.11-0.59); Monocytes % (auto) 13.9 %; Neutrophils % (auto) 69.5 %; Platelet Count 580 K/uL (130-400); RDW Coefficient of Variation 16.6 % (11.5-14.5); RDW Standard Deviation 54.2 fL (36.4-46.3); Red Blood Count 3.22 M/uL (4.2-5.4); White Blood Count 7.05 K/uL (4.8-10.8)
[2020-10-20 07:29] LABS: INR 1.9 (0.9-1.1); Prothrombin Time 19.7 Seconds (9.0-12.0)
[2020-10-20] MEDS: HYDROmorphone INJ 0.5 MG/0.5 ML SYR IV PRN ×5 (07:43→21:10)
[2020-10-20 07:55] LABS: Albumin Globulin Ratio 0.7 (0.9-2); Albumin Level 2.3 gm/dl (3.4-5.0); Bilirubin,Total 0.4 mg/dl (0.2-1); Calcium 8.7 mg/dl (8.5-10.1); Est GFR (African American) 82.6; Est GFR (Non-African American) 71.3; Globulin 3.1 gm/dl (2.5-4.0); Potassium 3.5 mmol/L (3.5-5.1); Total Protein 5.4 gm/dl (6.4-8.2)
--- NOTE | 2020-10-20 11:03 | Palliative Care Consultation ---
Date of Consultation October 20, 2020 Assessment & Plan (1) Nausea & vomiting: Zofran ordered as needed. Could consider octreotide and decadron for decompression in addition to NGT (2) Small bowel obstruction: (3) Abnormal CT scan, colon: (4) Protein calorie malnutrition: She has lost nearly 100lbs from her baseline. Albumin 2.3. Discussed with daughter, this would progress with comfort directed approach. She understands. (5) Palliative care encounter: I spoke with Stephie who understands that she has bowel obstruction with a mass in her colon. She is not aware that this may be cancer and her daughter has asked that the word cancer not be used with Stephie. Her daughter, Pili, supports Stephie's decision to decline further workup or aggressive treatment. Stephie has a living well that is consistent with this. She has talked multiple times in the past about wanting to be at home when she . Her daughter would like to have her home on hospice and feels comfortable caring for her at home. We discussed concern that even if we are able to open her obstruction with conservative measures, it is likely to recur. We discussed possibility of using NGT with suction at home with hospice. She would be comfortable with doing that but feels certain that Stephie would not want that. Will continue NGT with suction for now and consider steroid and octreotide. Plan will be home with hos pice if we are able to relieve her symptoms. History of Present Illness Reason for Consultation: Goals of care Requesting Physician: Justyna Dalton Attending Physician: Griffin Hernandez DO History of Present Illness 80 yo lady with Parkinson's disease who has had anorexia and weight loss with functional decline for over a year. Her daughter reports that her baseline weight is 240lbs and she weighs 157lbs currently. She was admitted with nausea, vomiting and abdominal pain and found to have small bowel obstruction with obstructing lesion in her colon. She has declined further workup or treatment. She has had NGT with suction and denies abdominal pain but does c/o mild nausea. She is tolerating ice chips. Allergies Allergy/AdvReac Type Severity Reaction Status Date / Time No Known Allergies Allergy Verified 10/18/20 11:03 Home Medications Medication Instructions Recorded Confirmed Type acetaminophen [Tylenol Extra 500 mg PO QID PRN 07/14/18 10/18/20 History Strength] amantadine HCl 100 mg PO BID 07/14/18 10/18/20 History cyanocobalamin (vitamin B-12) 1,000 mcg IM MONTHLY 07/14/18 10/18/20 History clobetasol 1 applic TOPICAL BID 04/13/20 10/18/20 History hydrocortisone 1 applic TOPICAL BID PRN 04/13/20 10/18/20 History metformin 1,000 mg PO BID 04/13/20 10/18/20 History nystatin-triamcinolone 1 applic TOPICAL BID PRN 04/13/20 10/18/20 History acetaminophen 650 mg PO Q4H PRN #30 tab 05/11/20 10/18/20 Rx azathioprine [Imuran] 50 mg PO DAILY #30 tab 05/11/20 10/18/20 Rx buspirone 5 mg PO BID #60 tab 05/11/20 10/18/20 Rx carbidopa-levodopa 2 tab PO BID #120 tab 05/11/20 10/18/20 Rx aspirin [Aspirin Low-Strength] 81 mg PO DAILY 10/18/20 10/18/20 History twmjttq-hxskeomgl-[id number] 1 tab PO DAILY 10/18/20 10/18/20 History [id number] 1 tab PO DAILY 10/18/20 10/18/20 History [Theragran-M Premier 50 Plus] tramadol 50 mg PO Q6H 10/18/20 10/18/20 History Patient History Medical History (Updated 10/20/20 @ 12:31 by Kayla Ellis MD) Diabetes Hypertension Paroxysmal atrial fibrillation QT prolongation Urinary tract infection Family History Other Aneurysm Stroke Social History Smoking Status: Former smoker Tobacco Type: Pipe Second Hand Exposure: No; Do You Dip or Chew Tobacco: No; Tobacco Cessation Education Requested by Patient: No Hx Alcohol Use: No Hx Substance Use: No Preferred Language: Wolof Communication Ability: Effective 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: No Beliefs That Will Affect Care: None marital status: Single Current Living Situation: Family Current Living Situation Comment: lives with daughter Other Information That Helps Us Care for You: No Feels Safe at Home: Yes Safety Concerns: Feels Safe At This Time Assistive Devices: Denture - Upper Review of Systems Review of Systems: [place] Symptom Assessment Scale Pain 0/3 Nausea 1/3 Dyspnea 0/3 Fatigue 2/3 Drowsiness 0/3 Depression 0/3 Anxiety 1/3 Palliative Performance Score 50% Physical Exam Constitutional: + ill appearing and + thin ENMT: NG tube with brown fluid suctioned Respiratory: normal respiratory effort; no labored breathing Cardiovascular: Pedal edema Gastrointestinal (Abdomen): slightly distended, tender Skin: skin breakdown on heels Neurologic: Motor/Sensory: + tremor Psychiatric: Orientation: alert and oriented x 3 Results & Data ([facility]) Vital Signs (Past 12 Hours) Vital Signs Temp Pulse Resp BP Pulse Ox 10/20/20 07:37 98.6 F 111 H 16 106/67 94 PG Care Time/CCT Total # of Minutes Spent Total Time Spent with Patient: Total time spent is greater than 50% in coordination of care (as documented) at patient's floor/unit and/or counseling patient: Total time spent 65 minutes with more than 50% of time spent on discussing prognosis, goals of care, hospice and symptom management Coding Level of Care Code 22270 Inpt Consult Level 3 Diagnoses Nausea & vomiting R11.2 Small bowel obstruction K56.[address] scan, colon R93.3 Protein calorie malnutrition E46 Palliative care encounter Z51.5
--- NOTE | 2020-10-20 11:47 | Surgery Progress Note ---
Date of Service October 20, 2020 Assessment & Plan (1) Bowel obstruction: 80 year-old female who presented to Er with nausea, vomiting, and weakness found to have small and large bowel obstruction on imaging concerning for splenic flexure mass or inflammation. No prior history of colonoscopy. 10/19/2020 - leukocytosis resolved - 760 cc NGT output - KUB today with persistent SBO - CEA elevated at 6.3 10/20/2020 - 100 cc of NGT output, no return of bowel function Plan: Patient declined colonoscopy or any intervention yesterday. Daughter states her living will states she would not want any intervention. Palliative care consulted to discuss further management As patient does not want any intervention, our services will sign off. Please call if patient's wishes/decision has changed. Dr. Rios has seen and examined pt, agrees with above. Admission and Anticipated Discharge Date Admission Date: October 18, 2020 Subjective patient very hard to understand, very dry mouth states she is unsure if she passed any gas some abdominal pain still present when asked if she spoke with GI about colonoscopy she said she is unsure. Hospitalist discussed patient's status with daughter and palliative care has been consulted as she refused colonoscopy yesterday. Physical Exam Constitutional: + altered mental status, + frail appearing and cooperative; no acute distress and + not appropriately hydrated Respiratory: normal respiratory effort; no respiratory distress and no labored breathing Gastrointestinal (Abdomen): Inspection/Auscultation: + abdomen distended (mild) Percussion/Palpation: + abdomen tender (mild generalized) and abdomen soft; no guarding and abdomen not rigid Skin: no rashes, warm and dry Psychiatric: Orientation: alert Results & Data ([facility]) Vital Signs (Past 12 Hours) Vital Signs Temp Pulse Resp BP Pulse Ox 10/20/20 07:37 37 C 111 H 16 106/67 94 Laboratory Results 10/20/20 10/20/20 10/20/20 Range/Units 06:11 06:11 06:11 WBC 7.05 (4.8-10.8) K/uL RBC 3.22 L (4.2-5.4) M/uL Hgb 9.4 L (12.0-16.0) g/dL Hct 29.1 L (37-47) % MCV 90.4 (80-100) fL MCH 29.2 (25-34) pg MCHC 32.3 (32-36) g/dL RDW Std Deviation 54.2 H (36.4-46.3) fL RDW Coeff of Segundo 16.6 H (11.5-14.5) % Plt Count 580 H (130-400) K/uL MPV 9.6 (7.4-10.4) fL Immature Gran % (Auto) 0.3 % Neut % (Auto) 69.5 % Lymph % (Auto) 15.2 % [place] % (Auto) 13.9 % Eos % (Auto) 1.0 % Baso % (Auto) 0.1 % Neut # (Auto) 4.90 (1.4-6.5) K/uL Lymph # (Auto) 1.07 L (1.2-3.4) K/uL [place] # (Auto) 0.98 H (0.11-0.59) K/uL Eos # (Auto) 0.07 (0-0.5) K/uL Baso # (Auto) 0.01 (0-0.2) K/uL Immature Gran # (Auto) 0.02 (0.00-0.02) K/uL PT 19.7 H (9.0-12.0) Seconds INR 1.9 H (0.9-1.1) Sodium 145 D (136-145) mmol/L Potassium 3.5 D (3.5-5.1) mmol/L Chloride 110 H (98-107) mmol/L Carbon Dioxide 27 (21-32) mmol/L Anion Gap 8.0 (3-11) BUN 37 H (7-18) mg/dl Creatinine 0.78 D (0.6-1.2) mg/dl Est Cr Clr Drug Dosing 55.0 ml/min Est GFR ( Amer) 82.6 Est GFR (Non-Af Amer) 71.3 BUN/Creatinine Ratio 47.0 H (10-20) Glucose 147 H (70-99) mg/dl POC Glucose (70-99) mg/dl Calcium 8.7 (8.5-10.1) mg/dl Total Bilirubin 0.4 (0.2-1) mg/dl AST 6 L (15-37) U/L ALT 9 L (12-78) U/L Alkaline Phosphatase 61 (45-117) U/L Total Protein 5.4 L D (6.4-8.2) gm/dl Albumin 2.3 L (3.4-5.0) gm/dl Globulin 3.1 (2.5-4.0) gm/dl Albumin/Globulin Ratio 0.7 L (0.9-2) 10/20/20 10/19/20 10/19/20 Range/Units 05:55 23:16 17:51 WBC (4.8-10.8) K/uL RBC (4.2-5.4) M/uL Hgb (12.0-16.0) g/dL Hct (37-47) % MCV (80-100) fL MCH (25-34) pg MCHC (32-36) g/dL RDW Std Deviation (36.4-46.3) fL RDW Coeff of Segundo (11.5-14.5) % Plt Count (130-400) K/uL MPV (7.4-10.4) fL Immature Gran % (Auto) % Neut % (Auto) % Lymph % (Auto) % [place] % (Auto) % Eos % (Auto) % Baso % (Auto) % Neut # (Auto) (1.4-6.5) K/uL Lymph # (Auto) (1.2-3.4) K/uL [place] # (Auto) (0.11-0.59) K/uL Eos # (Auto) (0-0.5) K/uL Baso # (Auto) (0-0.2) K/uL Immature Gran # (Auto) (0.00-0.02) K/uL PT (9.0-12.0) Seconds INR (0.9-1.1) Sodium (136-145) mmol/L Potassium (3.5-5.1) mmol/L Chloride (98-107) mmol/L Carbon Dioxide (21-32) mmol/L Anion Gap (3-11) BUN (7-18) mg/dl Creatinine (0.6-1.2) mg/dl Est Cr Clr Drug Dosing ml/min Est GFR ( Amer) Est GFR (Non-Af Amer) BUN/Creatinine Ratio (10-20) Glucose (70-99) mg/dl POC Glucose 156 H 159 H 163 H (70-99) mg/dl Calcium (8.5-10.1) mg/dl Total Bilirubin (0.2-1) mg/dl AST (15-37) U/L ALT (12-78) U/L Alkaline Phosphatase (45-117) U/L Total Protein (6.4-8.2) gm/dl Albumin (3.4-5.0) gm/dl Globulin (2.5-4.0) gm/dl Albumin/Globulin Ratio (0.9-2) 10/19/20 Range/Units 12:19 WBC (4.8-10.8) K/uL RBC (4.2-5.4) M/uL Hgb (12.0-16.0) g/dL Hct (37-47) % MCV (80-100) fL MCH (25-34) pg MCHC (32-36) g/dL RDW Std Deviation (36.4-46.3) fL RDW Coeff of Segundo (11.5-14.5) % Plt Count (130-400) K/uL MPV (7.4-10.4) fL Immature Gran % (Auto) % Neut % (Auto) % Lymph % (Auto) % [place] % (Auto) % Eos % (Auto) % Baso % (Auto) % Neut # (Auto) (1.4-6.5) K/uL Lymph # (Auto) (1.2-3.4) K/uL [place] # (Auto) (0.11-0.59) K/uL Eos # (Auto) (0-0.5) K/uL Baso # (Auto) (0-0.2) K/uL Immature Gran # (Auto) (0.00-0.02) K/uL PT (9.0-12.0) Seconds INR (0.9-1.1) Sodium (136-145) mmol/L Potassium (3.5-5.1) mmol/L Chloride (98-107) mmol/L Carbon Dioxide (21-32) mmol/L Anion Gap (3-11) BUN (7-18) mg/dl Creatinine (0.6-1.2) mg/dl Est Cr Clr Drug Dosing ml/min Est GFR ( Amer) Est GFR (Non-Af Amer) BUN/Creatinine Ratio (10-20) Glucose (70-99) mg/dl POC Glucose 159 H (70-99) mg/dl Calcium (8.5-10.1) mg/dl Total Bilirubin (0.2-1) mg/dl AST (15-37) U/L ALT (12-78) U/L Alkaline Phosphatase (45-117) U/L Total Protein (6.4-8.2) gm/dl Albumin (3.4-5.0) gm/dl Globulin (2.5-4.0) gm/dl Albumin/Globulin Ratio (0.9-2)
[2020-10-20] MEDS: DEXAMETHASONE SOD PHOSPHATE 4 MG in SYRINGE 0 ML IV SCH (14:03)
--- NOTE | 2020-10-20 15:29 | Hospitalist Progress Note ---
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 CEA elevated at 6.3 -Provide antiemetics - will continue Zosyn - patient has a history of unexplained pseudomonas bacteremia and at this point I'm wondering if her gut was the source with a developing mass. In any case with the mass she likely has a higher risk for translocation of bacteria. Ms. Nicole does not want any invasive workup or procedures. Palliative care met with patient and talked with her daughter. Their goal is to have her return home on hospice. Per that goal dexamethasone and octreotide were initiated to help with decompressing her to a point where the NG tube could be removed as her daughter does not think her mother would want to discharge with the tube in. (2) Acute kidney injury: -pre-renal due to poor po intake - creat 1.95 on admission, now resolved -Continue IVF but decrease from 150 ml/hr to 80 mls/hr -Will avoid nephrotoxins -bmp am (3) Coagulopathy: -may be nutritional with patient having poor po intake -INR is 1.9 today (4) Diabetes mellitus: -the Patient takes Metformin for this condition which we will hold. -We will follow her glucose levels and use sliding scale insulin. (5) Leukocytosis: -May be related to the stress from her acute illness. -We will follow serial labs - continue Zosyn for now (6) [place] [facility] [place]mission and Anticipated Discharge Date Admission Date: October 18, 2020 Supervising Physician Co-Signing Physician Notes chart reviewed and case d/w S Sha BLAKE. As above Results & Data Results & Data ([facility]) Vital Signs (Past 12 Hours) Vital Signs Temp Pulse Resp BP Pulse Ox 10/20/20 15:06 36.8 C 108 H 17 113/69 94 10/20/20 07:37 37 C 111 H 16 106/67 94 PG Care Time/CCT Total # of Minutes Spent Total Time Spent with Patient: Total time spent is greater than 50% in coordination of care (as documented) at patient's floor/unit and/or counseling patient: Coding Level of Care Code 09061 Subseq Hosp Care Lvl 3 Diagnoses Small bowel obstruction K56.609 Acute kidney injury N17.9 Coagulopathy D68.9 Diabetes mellitus E11.9 Leukocytosis D72.829 DVT prophylaxis Z29.9
[2020-10-20] MEDS: OCTREOTIDE ACETATE 100 MCG in SYRINGE 9 ML IV SCH (21:10)
[2020-10-21] MEDS: INSULIN ASPART 100 UNITS/ML 3 ML PEN SC SCH ×4 (00:08→18:58)
[2020-10-21] MEDS: HYDROmorphone INJ 0.5 MG/0.5 ML SYR IV PRN ×3 (01:11→08:40)
[2020-10-21] MEDS: SODIUM CHLORIDE 0.9% 1000ML 1,000 ML IV SCH ×2 (01:11→13:47)
[2020-10-21] MEDS: PIPERACILLIN/TAZOBACTAM 3.375 GM in DEXTROSE 5% 100 ML IV SCH ×3 (05:04→21:19)
[2020-10-21] MEDS: ONDANSETRON INJ 2 MG/ML 2 ML VIAL IV SCH ×4 (05:04→21:19)
[2020-10-21 08:14] LABS: Creatinine Clr Calc Pharmacy 82.5 ml/min; Est GFR (African American) 103.9; Est GFR (Non-African American) 89.6
[2020-10-21 08:35] LABS: BUN Creatinine Ratio 40.5 (10-20); Calcium 8.8 mg/dl (8.5-10.1); Potassium 3.5 mmol/L (3.5-5.1)
[2020-10-21] MEDS: OCTREOTIDE ACETATE 100 MCG in SYRINGE 9 ML IV SCH ×2 (08:42→19:53)
[2020-10-21] MEDS: DEXAMETHASONE SOD PHOSPHATE 4 MG in SYRINGE 0 ML IV SCH (08:42)
[2020-10-21] MEDS ORDERED: LORazepam 0.25 MG/0.5 ML VIAL IV PRN (10:51)
--- NOTE | 2020-10-21 10:57 | Hospitalist Progress Note ---
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 CEA elevated at 6.3 -Provide antiemetics - will continue Zosyn - patient has a history of unexplained pseudomonas bacteremia and at this point I'm wondering if her gut was the source with a developing mass. In any case with the mass she likely has a higher risk for translocation of bacteria. Ms. Nicole does not want any invasive workup or procedures. Palliative care met with patient and talked with her daughter. Their goal is to have her return home on hospice. Continue dexamethasone and octreotide to help with decompressing (2) Acute kidney injury: -pre-renal due to poor po intake - creat 1.95 on admission, now resolved -Continue IVF but decrease from 150 ml/hr to 80 mls/hr -Will avoid nephrotoxins -bmp am (3) Coagulopathy: -may be nutritional with patient having poor po intake -INR is 1.9 10/20 (4) Diabetes mellitus: -the Patient takes Metformin for this condition which we will hold. -We will follow her glucose levels and use sliding scale insulin. (5) Leukocytosis: -May be related to the stress from her acute illness. - continue Zosyn for now (6) Severe protein-calorie malnutrition: (7) DVT prophylaxis: SCDs Dispo: will go home on hospice once symptoms are stabilized Admission and Anticipated Discharge Date Admission Date: October 18, 2020 Supervising Physician Co-Signing Physician Notes chart reviewed and case d/w S Sha BLAKE. As above Subjective Ms. Nicole reports that she hurts "all over". No longer nauseas. She is somewhat hard to understand with NG tube, soft voice from Parkinsons, disorientation Review of Systems Constitutional: no fever and no chills Respiratory: no cough and no dyspnea Cardiovascular: no chest pain and no palpitations Gastrointestinal: no abdominal pain, no nausea and no vomiting Genitourinary: no dysuria and no urinary hesitancy Musculoskeletal: no back pain and no joint pain Integumentary: no rash Physical Exam Physical Exam: General: no distress Eyes: normal inspection, PERLL Respiratory: chest non tender, clear to auscultation, normal breath sounds, no respiratory distress, no accessory muscle use Cardiac: regular rate and rhythm, no rub or gallop, no murmur, no edema, no jvd GI/: active bowel sounds, abdomen tender, soft, non distended Extremities: normal range of motion, normal strength, non tender Neuro/Psych: alert and oriented to person and place, normal mood and affect Skin: normal color, dry Results & Data Results & Data ([facility]) Vital Signs (Past 12 Hours) Vital Signs Temp Pulse Resp BP Pulse Ox 10/21/20 07:06 36.8 C 108 H 16 147/88 H 96 10/20/20 23:06 36.6 C 98 H 17 119/75 99 PG Care Time/CCT Total # of Minutes Spent Total Time Spent with Patient: Total time spent is greater than 50% in coordination of care (as documented) at patient's floor/unit and/or counseling patient: Coding Level of Care Code 90343 Subseq Hosp Care Lvl 2 Diagnoses Small bowel obstruction K56.609 Acute kidney injury N17.9 Coagulopathy D68.9 Diabetes mellitus E11.9 Leukocytosis D72.829 Severe protein-calorie malnutrition E43 DVT prophylaxis Z29.9
[2020-10-21] MEDS: HYDROmorphone INJ 1 MG/ML SYRINGE IV PRN ×2 (11:18→16:42)
[2020-10-21] MEDS: SODIUM CHLOR 0.45% + 20MEQ KCL 20 MEQ/1,000 ML BAG IV SCH ×2 (14:28→23:44)
--- NOTE | 2020-10-21 15:44 | Palliative Care Progress Note ---
Date of Service October 21, 2020 Assessment & Plan (1) Bowel obstruction: (2) Palliative care encounter: Spoke with Pili and updated her. Continued NG output with ice chips. Will try hard candy and ativan as I think there is an anxiety component to this. Monitor with octreotide and decadron. I did discuss going home with the NG tube. Pili would really prefer not to for Stephie's sake. Increase dilaudid for pain. (3) Nausea & vomiting: Controlled with NG and odansetron. Admission and Anticipated Discharge Date Admission Date: October 18, 2020 Subjective Sitting up in bed with ice chips. 500 cc output from NG tube overnight. Mostly from ice chips. Does still c/o abdominal pain and pain all over. She has "a little" nausea. Review of Systems Review of Systems: [place] Symptom Assessment Scale Pain 2/3 Dyspnea 0/3 Nausea 1/3 Anorexia NPO Anxiety 2/3 Drowsiness 0/3 Palliative Performance Score 40% Physical Exam Constitutional: + thin and + frail appearing Respiratory: normal respiratory effort; no labored breathing Cardiovascular: Extremities: no edema Skin: warm and dry Neurologic: moves all extremities Motor/Sensory: + tremor Psychiatric: Orientation: alert and oriented x 3 Results & Data ([facility]) Vital Signs (Past 12 Hours) Vital Signs Temp Pulse Resp BP Pulse Ox 10/21/20 15:24 98.4 F 110 H 18 132/79 96 10/21/20 07:06 98.2 F 108 H 16 147/88 H 96 PG Care Time/CCT Total # of Minutes Spent Total Time Spent with Patient: Total time spent is greater than 50% in coordi nation of care (as documented) at patient's floor/unit and/or counseling patient: total time spent 35 minutes with more than 50% of time spent on symptom management, coordination of care. Coding Level of Care Code 56469 Subseq Hosp Care Lvl 3 Diagnoses Bowel obstruction K56.609 Palliative care encounter Z51.5 Nausea & vomiting R11.2
[2020-10-22] MEDS: INSULIN ASPART 100 UNITS/ML 3 ML PEN SC SCH ×3 (00:37→12:57)
[2020-10-22] MEDS: PIPERACILLIN/TAZOBACTAM 3.375 GM in DEXTROSE 5% 100 ML IV SCH ×2 (04:58→13:32)
[2020-10-22] MEDS: HYDROmorphone INJ 0.5 MG/0.5 ML SYR IV PRN ×2 (04:59→08:43)
[2020-10-22] MEDS: ONDANSETRON INJ 2 MG/ML 2 ML VIAL IV SCH ×2 (04:59→10:45)
[2020-10-22] MEDS: OCTREOTIDE ACETATE 100 MCG in SYRINGE 9 ML IV SCH (08:44)
[2020-10-22] MEDS: DEXAMETHASONE SOD PHOSPHATE 4 MG in SYRINGE 0 ML IV SCH (08:44)
[2020-10-22] MEDS: SODIUM CHLOR 0.45% + 20MEQ KCL 20 MEQ/1,000 ML BAG IV SCH (09:12)
[2020-10-22] MEDS ORDERED: MoRPHine SULFATE 10 MG/0.5 ML UDP PO PRN (12:30)
--- NOTE | 2020-10-22 12:55 | Discharge Summary ---
Date of Service October 22, 2020 Admission HPI Per Admitting Provider This is an 80-year-old female who presented to the [facility] emergency department due to 1 to 2 weeks of not feeling well. Patient notes that she has had abdominal pain and has developed nausea vomiting. She notes over the past week or so her appetite is not very good. She cannot tell me when her most recent bowel movement was. Upon presentation to the emergency department patient had labs drawn were CBC revealed white blood cell count was 20.75, hemoglobin hematocrit were 12.4 and 36.2 and her platelet count was 765,000. Patient had an INR of 1.8. Chemistry profile showed sodium was 133 potassium 5.0, her BUN and creatinine were 44 and 1.95. She did not have any significant elevation of her LFTs. A COVID-19 test was noted to be negative. She did undergo a CAT scan which revealed the patient had some dilated large and small bowel loops to the level splenic flexure concerning for a partial colonic obstruction. She is also noted to have some bowel wall thickening that was felt to be pathologic in nature as well as an enlarged pericolonic lymph node. Since arrival to the emergency department she has had an NG tube placed with approximately 5 to 600 cc of brown material retrieved. Patient does note that she has had some symptomatic relief since this has been placed. At the time of my visit she was noted to be in no distress. The patient notes that in event of cardiopulmonary arrest she did not want to be resuscitated she would therefore be a level 5 DO NOT RESUSCITATE. This was confirmed with her daughter who I updated by phone. Principal Diagnosis SBO Discharge Exam Constitutional + ill appearing Respiratory normal respiratory effort, lungs clear to auscultation Cardiovascular Rate/Rhythm: regular rate and regular rhythm Extremities: + edema (generalized ) Gastrointestinal (Abdomen) normal bowel sounds, soft, nontender, no hepatosplenomegaly Musculoskeletal generalized weakness Skin + pallor Neurologic moves all extremities and awake Psychiatric Affect: + flat affect Discharge Data Allergies Allergy/AdvReac Type Severity Reaction Status Date / Time No Known Allergies Allergy Verified 10/18/20 11:03 Consultations 10/18/20 16:38 Consult Case Management - Discharge Planning Routine Consult Gastroenterology Routine Consult General Surgery Routine 10/19/20 15:01 Consult Palliative Care Routine Ordered Studies 10/18/20 11:36 CT abd pelvis wo con Stat Hospital Course (1) Small bowel obstruction: 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 CEA elevated at 6.3 -Provide antiemetics - Given Zosyn, dc abx on discharge for hospice Ms. Nicole does not want any invasive workup or procedures. Palliative care met with patient and talked with her daughter. To return home on hospice Given dexamethasone and octreotide to help with decompressing while inpatient (2) Acute kidney injury: -pre-renal due to poor po intake - creat 1.95 on admission, now resolved - given IVF -Will avoid nephrotoxins -bmp am (3) Coagulopathy: -may be nutritional with patient having poor po intake -INR 1.9 on 10/20 (4) Diabetes mellitus: -held home metformin and gave ss (5) Leukocytosis: -May be related to the stress from her acute illness. - Zosyn while inpatien t (6) DVT prophylaxis: SCDs Dispo: home on hospice Total Time Total Time Spent Total Time Spent (In Minutes): greaetr than 30 minutes Discharge Plan Discharge Items Patient Disposition: Hospice - Home Reason For Visit: SBO Discharge Diagnosis: small bowel obstruction Activity: Resume your previous activity Non-emergency contact: Primary Care Provider Call non-emergency contact if: you have any medication questions and your symptoms worsen Follow-up/Referrals: Kojo Cohen [Primary Care Provider] - Diet: Clear liquid Diet Comment: ice chips, popsicles only Addtl Attending Provider Instructions: Hospice should set your suction to low intermittent. You will go home with prescriptions for lorazepam for anxiety and morphine for pain or shortness of breath Pending Studies at Discharge: No Stand-Alone Forms: My [facility] Medications and DC Order Prescriptions: New lorazepam 0.5 mg tablet 0.25 mg sublingual Q4H Qty: 9 RF: 0 ondansetron 4 mg tablet,disintegrating 4 mg PO Q6H Qty: 30 RF: 0 morphine concentrate 100 mg/5 mL (20 mg/mL) Solution 10 mg PO Q3H PRN (Reason: pain) Qty: 30 RF: 0 Discontinued amantadine HCl 100 mg capsule 100 mg PO BID RF: 0 cyanocobalamin (vitamin B-12) 1,000 mcg/mL Solution 1,000 mcg IM MONTHLY RF: 0 acetaminophen [Tylenol Extra Strength] 500 mg Tablet 500 mg PO QID PRN (Reason: Pain) RF: 0 metformin 1,000 mg Tablet 1,000 mg PO BID RF: 0 nystatin-triamcinolone 100,000-0.1 unit/g-% Cream 1 applic TOPICAL BID PRN (Reason: UNDER BREAST PRN) RF: 0 clobetasol 0.05 % cream 1 applic TOPICAL BID RF: 0 hydrocortisone 2.5 % Cream 1 applic TOPICAL BID PRN (Reason: Skin Irritation) RF: 0 buspirone 5 mg Tablet 5 mg PO BID Qty: 60 RF: 0 carbidopa-levodopa 50-200 mg Tablet Extended Release 2 tab PO BID Qty: 120 RF: 0 acetaminophen 325 mg Tablet 650 mg PO Q4H PRN (Reason: pain) Qty: 30 RF: 0 azathioprine [Imuran] 50 mg tablet 50 mg PO DAILY Qty: 30 RF: 0 aspirin [Aspirin Low-Strength] 81 mg Tablet,Delayed Release (Dr/Ec) 81 mg PO DAILY RF: 0 tramadol 50 mg tablet 50 mg PO Q6H RF: 0 Theragran-M Premier 50 Plus 400-250-375 mcg Tablet 1 tab PO DAILY RF: 0 syoectu-gdhlcbvim-vbvn 333-133-8.3 mg Tablet 1 tab PO DAILY RF: 0 Discharge Orders: Discharge Order (Routine); Ordered 10/22/20 Ordered By: Justyna Dalton Admission Data Admit Date/Time: 10/18/20 15:42 Attending Provider: Pepe Castrejon Admit Provider: Demian Trejo Primary Care Provider: Kojo Cohen Other Providers: Morgan Moffett ; Maris Riso,[facility] ; Kayla Ellis ; Griffin Hernandez ; [facility] Other Interventions: Discharge Summary Assessment (RN) Last Done: 10/22/20 13:00 Supervising Physician Co-Signing Physician Notes I personally examined the patient and verified all basurto points of history and exam, discussed case, and agree with decision making with Aury Dalton JEWEL BEARING BROACHER feels up to going home on hospice. expresses no further needs at this time vitals noted nad NGT in place breathing unlabored no accessory muscles good effort bowel obstruction - home w hospice - as above // appreciate palliative assistance as well Coding Level of Care Code D/C Day Management >30 mins Diagnoses Small bowel obstruction K56.609 Acute kidney injury N17.9 Coagulopathy D68.9 Diabetes mellitus E11.9 Leukocytosis D72.829 DVT prophylaxis Z29.9
[2020-10-22] MEDS ORDERED: ONDANSETRON INJ 2 MG/ML 2 ML VIAL IV ONE (14:00)
--- NOTE | 2020-10-22 14:01 | Palliative Care Progress Note ---
Date of Service October 22, 2020 Assessment & Plan (1) Nausea & vomiting: Improved with NG suction. Unfortunately it does not seem likely that we will be able to decrease output to a point where she would be comfortable without tube at home. Ice chips are an important part of comfort for her. I spoke with her daughter, Pili, by phone. She very much wants Stephie to be at home and is comfortable with taking care of her. She is agreeable to continuing NGT for now and continuing to work with hospice on whether tube could be removed at home. Will give zofran prior to discharge and clamp NG for transport home. Case management is arranging home hospice with suction at home for NGT. (2) Bowel obstruction: with abdominal pain and generalized pain. Will order roxanol 10mg for SL administration at home for pain. (3) Anxiety: Continue prn SL ativan at home. (4) Palliative care encounter: (5) Parkinson disease: Admission and Anticipated Discharge Date Admission Date: October 18, 2020 Subjective Continues with copious output in NGT, mostly related to ice chips. She denies nausea at this time. She has not had prn dilaudid since yesterday. Review of Systems Review of Systems: [place] Symptom Assessment Scale Pain 0/3 Nausea 0/3 Dyspnea 0/3 Anxiety 1/3 Drowsiness 0/3 Palliative Performance Score 30% Physical Exam Constitutional: + ill appearing and + thin ENMT: Mouth: + dry oral mucous membranes Respiratory: normal respiratory effort; no labored breathing Cardiovascular: Extremities: no edema Musculoskeletal: Extremities: extremities normal to inspection Neurologic: Motor/Sensory: + tremor Results & Data ([facility]) Vital Signs (Past 12 Hours) Vital Signs Temp Pulse Pulse Resp BP Pulse Ox 10/22/20 13:00 97.7 F 103 H 106 H 18 131/84 96 10/22/20 07:43 97.7 F 106 H 18 131/84 96 PG Care Time/CCT Total # of Minutes Spent Total Time Spent with Patient: Total time spent is greater than 50% in coordination of care (as documented) at patient's floor/unit and/or counseling patient: Total time spent is 40 minutes with more than 50% of time spent on discussing symptom management and plan of care. Coding Level of Care Code 84537 Subseq Hosp Care Lvl 3 Diagnoses Nausea & vomiting R11.2 Bowel obstruction K56.609 Anxiety F41.9 Palliative care encounter Z51.5 Parkinson disease G20
== END 2020-10-22 15:20 | disposition hospice, home (50) | DRG 374 ==
LOC: ED 10:40 → 3N 15:42 → SUATTDRO 15:42 → 3N 16:08